=== PATIENT | female | born 1965 | race Caucasian/White ===

== ENCOUNTER → 2016-10-11 | Outpatient (CLI) | payer OTHER ==
[~2016-10-11] MED LIST: REGADENOSON 0.4 MG/5 ML SYRINGE IV ONE
--- NOTE | 2016-10-11 09:12 | US ---
EXAMINATION TYPE: US thyroid st tissue head/neck DATE OF EXAM: 10/11/2016 8:24 AM COMPARISON: NONE CLINICAL HISTORY: E03.9 hypothyroidism. Choking sensation, been on meds for hypothyroidism for years GLAND SIZE: Right Lobe: 4.4 x 1.6 x 2.3 cm Overall Parenchyma: heterogeneous Left Lobe: 3.3 x 1.5 x 2.4 cm Overall Parenchyma: heterogeneous Isthmus Thickness: 0.3 cm NODULES RIGHT: # of nodules measured on right: 0 LEFT: # of nodules measured on left: 1 1. 0.7 X 0.8cm calcified solid nodule at the upper pole with poorly defined margins. This nodule is wider than tall and shows no intranodular vascularity. Prior size: [employer] ISTHMUS: # of nodules measured in the isthmus: 0 Bilateral neck scanned, left sided lymph node at 1.7cm with vascularity and fatty hilum seen. IMPRESSION: 1. Subcentimeter nodule within the left lobe thyroid 2. Left side lymph node.
--- NOTE | 2016-10-11 11:18 | EST ---
DATE OF SERVICE: 10/11/2016 AGE: 51Y SEX: F HT: 5'5" WT: 283 lbs. Lexiscan Cardiolite Stress Test *Heart Rate Blood Pressure *Rest: 70 Rest: 94/44 * *Max. Achieved: 95 Maximum BP: 213/100 85% PMHR: 142 100% PMHR: 167 *METS: - INDICATIONS: Physical, shortness of breath. MEDICATIONS: - CLINICAL INFORMATION: Patient known to have hypertension, shortness of breath, family history of coronary artery disease, history of asthma. Resting ECG shows sinus rhythm, rate of 70 beats per minute, WI interval of 0.16, QRS of 0.08, normal ST-T waves. Utilizing a standard Lexiscan protocol, Lexiscan was given IV push followed by serial EKGs without any chest pain or pressure or ST segment deviations indicative of ischemia on the monitoring 12 leads. IMPRESSION: 1. Baseline rhythm is sinus with normal WI intervals, QRS, normal ST-T waves. 2. Negative Lexiscan Cardiolite study. 3. Nuclear scintigrams to follow from Radiology Department.
--- NOTE | 2016-10-11 14:10 | NM ---
EXAMINATION TYPE: NM stress lexiscan cardiolite DATE OF EXAM: 10/11/2016 10:54 AM COMPARISON: NONE HISTORY: Dyspnea on exertion and hypertension TECHNIQUE: After the intravenous administration of 11 mCi Tc 99m Sestamibi - Cardiolite resting SPEC T images acquired 45 minutes post injection. The patient received 0.4mg Lexiscan, 27.5 mCi Tc 99m Sestamibi - Stress images obtained [address] injection FINDINGS: Review of stress and rest SPECT images demonstrates decreased radio pharmaceutical uptake along the a nterolateral left ventricular myocardium at stress and rest images. Gated analysis shows normal wall motion with an estimated left ventricular ejection fraction of 50 %. 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
== END | disposition home or self-care (01) ==
LOC: RADUSMAIN 07:57
PROVIDERS: ATTEND Family Medicine
DX: E04.1 Nontoxic single thyroid nodule (principal)
CPT/HCPCS: 93017; 76536; 78452; A9500; J2785

== ENCOUNTER → 2016-10-24 | Outpatient (CLI) | payer OTHER ==
[2016-10-24 16:30] LABS: Basophils % (A) 1 %; CH 29.2; CHCM 33.3; Eosinophils # (A) 0.2 k/uL (0-0.7); Eosinophils % (A) 4 %; HCT 37.1 % (34.0-46.0); HGB 12.4 gm/dL (11.4-16.0); Luc # (Auto) 0.18; Luc % (Auto) 4; Lymphocytes # (A) 1.3 k/uL (1.0-4.8); Lymphocytes % (A) 26 %; MCH 29.3 pg (25.0-35.0); MCHC 33.4 g/dL (31.0-37.0); MCV 87.9 fL (80.0-100.0); Mean Platelet Volume 7.2; Monocytes # (A) 0.3 k/uL (0-1.0); Monocytes % (A) 6 %; Neutrophils % (A) 59 %; RBC 4.23 m/uL (3.80-5.40); RDW 13.8 % (11.5-15.5); WBC (Perox) 5.09
[2016-10-24 16:57] LABS: Anion Gap 10 mmol/L; Blood Urea Nitrogen 11 mg/dL (7-17); Carbon Dioxide 29 mmol/L (22-30); Chloride 102 mmol/L (98-107); Non-African American GFR(MDRD) >60 (>60 ml/min/1.73 sqM); Potassium 4.4 mmol/L (3.5-5.1); Sodium 141 mmol/L (137-145)
== END ==
LOC: LABPAT 16:00
PROVIDERS: ATTEND Internal Medicine Interventional Cardiology
DX: Z01.812 Encounter for preprocedural laboratory examination (principal); I10 Essential (primary) hypertension; I20.8 Other forms of angina pectoris; R94.39 Abnormal result of other cardiovascular function study
CPT/HCPCS: 80051; 82565; 84520; 85025

== ENCOUNTER 2016-10-30 06:01 | Day surgery (SDC) | payer OTHER ==
[2016-10-26 11:48] VITALS: BMI 50.1
[~2016-10-30 06:01] MED LIST changes: +ALPRAZolam 0.25 MG TAB PO PRN; +ASPIRIN 325 MG TAB PO ONE; -REGADENOSON 0.4 MG/5 ML SYRINGE IV ONE; +SODIUM CHLORIDE 0.9% 1,000 ML in EMPTY BAG 1 BAG IV ONE
[2016-10-30] MEDS ORDERED: SODIUM CHLORIDE 0.9% 1,000 ML IV ONE (07:05)
[2016-10-30 07:10] VITALS: RESP 16; TEMP 98.4
[2016-10-30] MEDS ORDERED: VERAPAMIL 2.5 MG/ML 2 ML AMP ONE (07:17)
[2016-10-30] MEDS ORDERED: diphenhydrAMINE 50 MG/ML 1 ML VIAL ONE (07:17)
[2016-10-30] MEDS ORDERED: fentaNYL (PF) 50 MCG/ML 2 ML AMP ONE (07:17)
[2016-10-30] MEDS ORDERED: LIDOCAINE 2% INJ 20 MG/ML (20 ML MDV) ONE (07:17)
[2016-10-30] MEDS ORDERED: MIDAZOLAM 2 MG/2 ML VIAL ONE (07:54)
[2016-10-30] MEDS ORDERED: diphenhydrAMINE 50 MG/ML 1 ML VIAL IVP ONE (07:55)
[2016-10-30] MEDS: MIDAZOLAM 2 MG/2 ML VIAL IV ONE ×2 (07:55→08:14)
[2016-10-30] MEDS ORDERED: HEPARIN SODIUM 1,000 UNIT/ML VIAL ONE (08:02)
[2016-10-30] MEDS ORDERED: LIDOCAINE 2% INJ 20 MG/ML SQ ONE (08:04)
[2016-10-30] MEDS ORDERED: VERAPAMIL SYRINGE (5 MG/10 ML) INTRAARTER ONE (08:06)
[2016-10-30] MEDS ORDERED: IOHEXOL 350 MG/ML 100 ML BOTTLE INJ ONE (08:34)
[2016-10-30] MEDS ORDERED: SODIUM CHLORIDE 0.9% 1,000 ML IV SCH (08:45)
[2016-10-30] MEDS ORDERED: RX INFO: IV CONTRAST WAS GIVEN 1 EACH MISC MISCELLANE PRN (08:45)
--- NOTE | 2016-10-30 09:42 | CC ---
DATE OF SERVICE: 10/30/2016 PROCEDURE: Left heart catheterization, coronary angiography and left ventriculography. Performed by Dr. Liane Macias. CLINICAL INFORMATION: Mrs. Kati Brunner is a 51-year-old lady with history of obesity, hypertension, hypercholesterolemia, anxiety with a positive stress test was advised coronary angiography for definitive diagnosis. She has been treated with beta blockers and statins and aspirin. Risks, benefits, options, and rationale were explained. PROCEDURE NOTE: Under local anesthesia and aseptic precautions, a 6 [place] introducer was placed was placed in the right radial artery. I used a micropuncture technique to gain access. I used an ultimate one catheter for selective coronary angiography of the right coronary artery and a JR3.5 catheter for right coronary artery and Ultimate One catheter for the left coronary artery. Pigtail catheter was used to perform LV gram after checking pressures. The sheath was taken out and TR band applied as per protocol. The saturation of the fingers of the right hand was 95%. Patient tolerated the procedure well without complications. CARDIAC CATHETERIZATION FINDINGS: The left ventricular end-diastolic pressure was 16 to 18 mmHg with no gradient across the aortic valve. RIGHT CORONARY ARTERY: Technically a dominant vessel, has minor irregularities, gives off a large PDA and hardly a PLV. No significant diffuse minor irregularities, dominant RCA with a good-sized PDA is free of significant disease. LEFT MAIN CORONARY ARTERY: Short, patent, disease-free vessel that bifurcates into LAD and circumflex. LEFT ANTERIOR DESCENDING CORONARY ARTERY: Relatively small caliber, small distribution vessel gives off a septal and diagonal branch and runs along the anterior wall. After the origin of the diagonal branch the caliber of the vessel decreases and becomes smaller, runs all the way to the apex and towards the distal one-fourth, is a very small caliber vessel. Gives off septal and diagonal branches. LAD in the distal half is a small caliber, small distribution vessel, but does reach the apex. LEFT POSTERIOR CIRCUMFLEX CORONARY ARTERY: This is a codominant vessel; gives off a large obtuse marginal that divides into 2 branches, supplies a fair amount of myocardium. Circumflex in the AV groove is of good caliber. In the AV groove it continues and seems to have a conduit that seems to empty either in the right atrium or in the superior vena cava and the distal groove branch of the circumflex continues in the sinus venosus area and then extends superiorly towards either SVC or right atrium, but I cannot see the emptying of this vessel. However, circumflex is a large catheter, probably a codominant vessel without significant disease, has minor irregularities and a branch of the circumflex that goes into the AV groove, continues on-words and seems to empty probably in the SVC or the right atrial area. However, there seems to be almost an arteriovenous site fistula, but does not seem to have a clear conduit to determine as to where is actually emptying. This seems to be an anomaly which is inconsequential. LEFT VENTRICULOGRAM: This was performed in 30 degree CARTER projection and revealed left ventricle of normal size with good systolic function without segmental wall motion abnormality. Ejection fraction is 60% to 65% without mitral regurgitation. Moderate Conscious Sedation adminstered for 45 minutes, monitered closely with decent Oxygen Saturation. 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 The LV systolic function is normal and filling pressures are slightly elevated. RECOMMENDATIONS: Findings were discussed with the patient and family. We will continue medical therapy with risk factor modification. The patient will be discharged later on today if she remains stable. MITA
--- NOTE | 2016-10-30 09:44 | LTR ---
October 30, 2016 RE: Kati Brunner Taryn Dear Dr. Soto; Thank you for the opportunity to participate in the care of Mrs. Kati Brunner. I am pleased to report to you that she does not have any significant obstructive coronary artery disease. 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 Thank you for your referral. Please call for questions. With kindest regards. Sincerely, LI WILKS MD
[2016-10-30 13:14] VITALS: PULSE 65
[2016-10-30 17:11] VITALS: BP 128/68
== END 2016-10-30 16:45 | disposition home or self-care (01) ==
LOC: CATHCVL 06:01
PROVIDERS: ATTEND Internal Medicine Interventional Cardiology
DX: R94.39 Abnormal result of other cardiovascular function study (principal); I20.8 Other forms of angina pectoris; R06.02 Shortness of breath; R07.89 Other chest pain; R00.2 Palpitations; E66.9 Obesity, unspecified; Z68.43 Body mass index [BMI] 50.0-59.9, adult; I10 Essential (primary) hypertension; E78.00 Pure hypercholesterolemia, unspecified; F41.9 Anxiety disorder, unspecified; E03.9 Hypothyroidism, unspecified; Z82.49 Family history of ischemic heart disease and other diseases of the circulatory system; Z79.82 Long term (current) use of aspirin; Z79.899 Other long term (current) drug therapy; Z88.0 Allergy status to penicillin
CPT/HCPCS: 93458; 99152; C1769; C1894; J2001; J2250; J1200; Q9967; J1644

== ENCOUNTER 2016-11-16 10:00 | Day surgery (SDC) | payer OTHER ==
[2016-11-13 14:51] VITALS: BMI 50.1
[~2016-11-16 10:00] MED LIST changes: -ALPRAZolam 0.25 MG TAB PO PRN; -ASPIRIN 325 MG TAB PO ONE; +LACTATED RINGERS 1,000 ML IV SCH; -SODIUM CHLORIDE 0.9% 1,000 ML in EMPTY BAG 1 BAG IV ONE
[2016-11-16 10:23] VITALS: RESP 16; TEMP 98.4
[2016-11-16] MEDS ORDERED: LIDOCAINE 1% 20 ML VIAL (10MG/ML) FOR IV START INTRADERMA ONE (10:27)
[2016-11-16] MEDS ORDERED: LIDOCAINE 1% INJ 10MG/ML (20 ML MDV) ONE (10:31)
[2016-11-16] MEDS ORDERED: PROPOFOL 10 MG/ML 20 ML VIAL IV ONE (10:31)
--- NOTE | 2016-11-16 10:34 | P.GSHP ---
History of Present Illness H&P Date: 11/16/16 Chief Complaint: Colon cancer screening Patient here today for colonoscopy. She at her last colonoscopy 10 years ago. That was normal. She has a family history of colon polyps in her father. No bowel related complaints. Past Medical History Past Medical History: GERD/Reflux, Hypertension, Thyroid Disorder Additional Past Medical History / Comment(s): insomnia History of Any Multi-Drug Resistant Organisms: None Reported Past Surgical History: Adenoidectomy, Heart Catheterization, Tonsillectomy, Tubal Ligation Additional Past Surgical History / Comment(s): CATARACT Past Anesthesia/Blood Transfusion Reactions: No Reported Reaction Past Psychological History: Anxiety, Depression Smoking Status: Never smoker Past Alcohol Use History: None Reported Past Drug Use History: None Reported - Past Family History Mother Family Medical History: Cancer Additional Family Medical History / Comment(s): breast CA Father Family Medical History: No Reported History Medications and Allergies Home Medications Medication Instructions Recorded Confirmed Type Albuterol Sulfate [Proventil Hfa] 2 puff INHALATION Q4H PRN 05/04/16 11/16/16 History Escitalopram Oxalate [Lexapro] 20 mg PO QAM 05/04/16 11/16/16 History Ferrous Sulfate [Feosol] 325 mg PO DAILY 05/04/16 11/16/16 History Levothyroxine Sodium [Synthroid] 112 mcg PO QAM 05/04/16 11/16/16 History Metoprolol Succinate [Toprol XL] 50 mg PO BID 05/04/16 11/16/16 History Omeprazole [PriLOSEC] 20 mg PO AC-BRKFST 05/04/16 11/16/16 History Aspirin [Adult Low Dose Aspirin EC] 81 mg PO DAILY 10/26/16 11/16/16 History Atorvastatin [Lipitor] 20 mg PO DAILY 10/26/16 11/16/16 History Fluticasone Nasal [place] [Flonase 1 spray EA NOSTRIL DAILY 10/26/16 11/16/16 History Nasal [place]] Hydrochlorothiazide 50 mg PO DAILY PRN 10/26/16 11/16/16 History LORazepam [Ativan] 2 mg PO DAILY PRN 10/26/16 11/16/16 History Loratadine [Claritin] 10 mg PO DAILY 10/26/16 11/16/16 History Zolpidem [Ambien] 10 mg PO HS 10/26/16 11/16/16 History Allergies Allergy/AdvReac Type Severity Reaction Status Date / Time Penicillins Allergy Rash/Hives Verified 11/16/16 10:13 Surgical - Exam Vital Signs Temp Pulse Resp BP Pulse Ox 98.4 F 72 16 138/85 94 L 11/16/16 10:22 11/16/16 10:22 11/16/16 10:22 11/16/16 10:22 11/16/16 10:22 Physical exam: General: Well-developed, well-nourished HEENT: Normocephalic, sclerae nonicteric Abdomen: Nontender, nondistended Extremities: No edema Neuro: Alert and oriented Assessment and Plan (1) Colon cancer screening Narrative/Plan: Will proceed with colonoscopy at this time. Risks of bleeding and perforation discussed. Status: Acute
--- NOTE | 2016-11-16 10:50 | P.PCN ---
Date of Procedure: 11/16/16 Preoperative Diagnosis: Postoperative Diagnosis: Procedure(s) Performed: PREOPERATIVE DIAGNOSIS: Colon cancer screening, family history of colon polyps POSTOPERATIVE DIAGNOSIS: Normal exam PROCEDURE: Colonoscopy ANESTHESIA: MAC SURGEON: Delvin De León M.D. SPECIMENS: None ENDOSCOPIC PROCEDURE: The patient was placed on the endoscopy table in the left decubitus position. The Olympus colonoscope was inserted into the anus and passed under direct visualization to the base of the cecum. The appendiceal orifice was visualized. From that point the scope was slowly withdrawn inspecting all surfaces carefully. There were no neoplastic inflammatory or polypoid lesions throughout the cecum, ascending, transverse, descending, sigmoid and rectum. There was no diverticulosis noted. Digital rectal examination was normal. The patient was taken to the recovery room in stable condition per anesthesia guidelines. RECOMMENDATIONS: Increase fiber. Consider follow-up colonoscopy in 5 years because of the patient's family history. Implants: Indications for Procedure: Operative Findings: Description of Procedure:
[2016-11-16 11:06] VITALS: BP 119/79; PULSE 63
== END 2016-11-16 12:04 | disposition home or self-care (01) ==
LOC: ORWHC2ENDO 10:00
PROVIDERS: ATTEND Surgery
DX: Z12.11 Encounter for screening for malignant neoplasm of colon (principal); Z83.71 Family history of colonic polyps; K21.9 Gastro-esophageal reflux disease without esophagitis; I10 Essential (primary) hypertension; E78.5 Hyperlipidemia, unspecified; J45.909 Unspecified asthma, uncomplicated; F41.9 Anxiety disorder, unspecified; F32.9 Major depressive disorder, single episode, unspecified; Z79.82 Long term (current) use of aspirin; Z79.51 Long term (current) use of inhaled steroids; Z88.0 Allergy status to penicillin; Z79.899 Other long term (current) drug therapy
CPT/HCPCS: J2001; J2704; G0105

== ENCOUNTER → 2017-07-17 | Outpatient (CLI) | payer OTHER ==
--- NOTE | 2017-07-18 22:11 | BD ---
EXAMINATION TYPE: MG DEXA axial skeleton. DATE OF EXAM: 07/17/2017 COMPARISON: NONE CLINICAL HISTORY: Height: 62.5 IN Weight: 292 LBS FRAX RISK QUESTIONS: Alcohol (3 or more units per day): NO Family History (Parent hip fracture): NO Glucocorticoids (More than 3mos): NO (Ex: prednisone, prednisolone, methylprednisolone, dexamethasone, and hydrocortisone). History of Fracture in Adulthood: NO Secondary Osteoporosis: 1. Type 1 Diabetes: NO 2. Hyperthyroidism: NO 3. Menopause before 45: NO 4. Malnutrition: NO 5. Chronic liver disease: NO Rheumatoid Arthritis: NO Current Tobacco Use: NO RISK FACTORS HISTORY OF: Active: YES Diet low in dairy products/other sources of calcium: YES Postmenopausal woman: AGE 48 MEDICATIONS: Thyroid Medications: Which medication: Levothyroxine How Lon YEARS Additional Medications: LEVOTHYROXINE, HIGH BLOOD PRESSURE MEDS, LEXAPRO, AMBIEN, PRILOSEC, SINGULAIR , 81 MG ASPIRIN, IRON PILL, INHALERS FOR ASTHMA, LASIX, POTASIUM, CHOLESTEROL MEDS EXAM MEASUREMENTS: Bone mineral densitometry was performed using the [employer] System. Bone mineral density as measured about the Lumbar spine is: ----- L1-L4(G/cm2): 0.986 T Score Values are as follows: ----- L2: -1.8 ----- L3: -2.2 ----- L4: -1.5 ----- L1-L4: -1.6 Bone mineral density BASELINE Bone mineral density about the R hip (g/cm2): 0.864 Bone mineral density about the L hip (g/cm2): 0.913 T Score values are as follows: -----R Neck: -1.3 -----L Neck: -0.9 -----R Total: 0.3 -----L Total: 0.5 Bone mineral density BASELINE IMPRESSION: Osteopenia (T Score between -2.5 and -1 as noted by T score values There is slightly increased risk of fracture and the patient may be considered for treatment. Re-Screen 2-5 years. NOTE: T-SCORE=SD OF THE YOUNG ADULT MEAN.
== END | disposition home or self-care (01) ==
LOC: RADBDWWP 12:38
PROVIDERS: ATTEND Obstetrics & Gynecology
DX: M85.80 Other specified disorders of bone density and structure, unspecified site (principal)
CPT/HCPCS: 77080

== ENCOUNTER → 2017-07-18 | Outpatient (CLI) | payer OTHER ==
--- NOTE | 2017-07-19 00:18 | XR ---
EXAMINATION TYPE: XR chest 2V DATE OF EXAM: 07/18/2017 COMPARISON: 05/20/2017 HISTORY: Wheezing and chronic cough TECHNIQUE: Frontal and lateral views of the chest are obtained. FINDINGS: There is no heart failure nor confluent pneumonic infiltrate. Costophrenic angles are solomon r. Thoracic aorta is atheromatous. Bony thorax is intact. Heart is probably enlarged. IMPRESSION: There is probably cardiomegaly. No change compared to old exam. No heart failure.
== END | disposition home or self-care (01) ==
LOC: RADXRMAIN 14:07
PROVIDERS: ATTEND Family Medicine
DX: J45.901 Unspecified asthma with (acute) exacerbation (principal)
CPT/HCPCS: 71046

== ENCOUNTER 2017-08-19 08:26 | Inpatient (IN) | payer OTHER ==
[2017-08-19] MEDS ORDERED: IPRATROPIUM-ALBUTEROL 3 ML NEB INHALATION STA (08:55)
[2017-08-19] MEDS ORDERED: HYDROcodone/APAP 5-325MG 1 EACH TAB PO STA (08:55)
[2017-08-19] MEDS ORDERED: ACETAMINOPHEN TAB 325 MG TAB PO STA (08:56)
[2017-08-19 09:20] LABS: HGB 12.5 gm/dL (11.4-16.0); MCH 29.4 pg (25.0-35.0); MCHC 32.9 g/dL (31.0-37.0); MCV 89.2 fL (80.0-100.0); Mean Platelet Volume 6.7; Platelet Count 157 k/uL (150-450); RBC 4.26 m/uL (3.80-5.40); RDW 14.3 % (11.5-15.5); WBC 3.1 k/uL (3.8-10.6)
--- NOTE | 2017-08-19 09:31 | XR ---
EXAMINATION TYPE: XR chest 2V DATE OF EXAM: 08/19/2017 COMPARISON: 07/29/2017 HISTORY: Chest pain TECHNIQUE: Frontal and lateral views of the chest are obtained. FINDINGS: There is no focal air space opacity, pleural effusion, or pneumothorax seen. The cardiac silhouette size is enlarged. The osseous structures are intact. IMPRESSION: No acute cardiopulmonary process. Redemonstration of cardiomegaly.
[2017-08-19 09:34] LABS: Prothrombin Time 9.9 sec (9.0-12.0)
--- NOTE | 2017-08-19 09:34 | XR ---
EXAMINATION TYPE: XR foot complete LT DATE OF EXAM: 08/19/2017 CLINICAL HISTORY: Left foot swelling since this morning. TECHNIQUE: Frontal, lateral, and oblique images of the left foot are obtained. COMPARISON: None FINDINGS: There is no acute fracture/dislocation evident in the left foot. The joint spaces in the left foot appear within normal limits. There is generalized mild soft tissue swelling of the left evangelina t most prominent over the proximal aspect of the fifth metatarsal laterally. Small plantar heel spur is noted. IMPRESSION: 1. No acute fracture or dislocation in the left foot. 2. Generalized mild soft tissue swelling of the left foot most pronounced over the lateral midfoot.
[2017-08-19 09:42] LABS: ALT 49 U/L (9-52); AST 24 U/L (14-36); Albumin 4.4 g/dL (3.5-5.0); Alkaline Phosphatase 98 U/L (38-126); Anion Gap 14 mmol/L; Blood Urea Nitrogen 8 mg/dL (7-17); C Reactive Protein 20.9 mg/L (<10.0); Calcium 9.1 mg/dL (8.4-10.2); Carbon Dioxide 27 mmol/L (22-30); Chloride 98 mmol/L (98-107); Glucose 158 mg/dL (74-99); Potassium 4.1 mmol/L (3.5-5.1); Sodium 139 mmol/L (137-145); Total Bilirubin 0.7 mg/dL (0.2-1.3); Total Protein 7.7 g/dL (6.3-8.2); Uric Acid 4.6 mg/dL (3.7-7.4)
--- NOTE | 2017-08-19 09:43 | ED ---
General Adult HPI - General Chief complaint: Extremity Injury, Lower Stated complaint: PAIN IN LEFT FOOT, FINGERS ON LEFT HAND Time Seen by Provider: 08/19/17 08:46 Source: patient, RN notes reviewed Mode of arrival: wheelchair Limitations: no limitations - History of Present Illness Initial comments: This a 52-year-old female presents emergency Department with multiple complaints. Patient complains of left leg, foot pain. She states it started overnight , increased redness, swelling. She is concerned that she may have possible blood clot. She does admit to recent epidural injection for chronic pain. Patient states that she's had no prior infections of her legs denies any history of diabetes or gout. Patient denies any current chest pain or shortness breath though she does admit to cough, chest congestion and some shortness of breath. She states that she has asthma has been seen Dr. Hollingsworth over the last few months for this and states that she's had multiple rounds of antibiotics, steroids and inhalers with no improvement. She did not notice that she had a fever. Patient denies any headache, dizziness, sore throat, ear pain. She does admit to some increased nasal congestion. Patient also complains of her left hand second and third digit locking up. She states that it gets stuck sometimes and then other times she has no issues. Denies any trauma denies any rashes. - Related Data Home Medications Medication Instructions Recorded Confirmed Escitalopram Oxalate [Lexapro] 20 mg PO QAM 05/04/16 08/19/17 Ferrous Sulfate [Feosol] 325 mg PO DAILY 05/04/16 08/19/17 Metoprolol Succinate [Toprol XL] 50 mg PO BID 05/04/16 08/19/17 Omeprazole [PriLOSEC] 20 mg PO AC-BID 05/04/16 08/19/17 Aspirin [Adult Low Dose Aspirin EC] 81 mg PO DAILY 10/26/16 08/19/17 Atorvastatin [Lipitor] 20 mg PO DAILY 10/26/16 08/19/17 Fluticasone Nasal [place] [Flonase 1 spray EA NOSTRIL DAILY 10/26/16 08/19/17 Nasal [place]] Loratadine [Claritin] 10 mg PO DAILY 10/26/16 08/19/17 Zolpidem [Ambien] 10 mg PO HS 10/26/16 08/19/17 Albuterol Inhaler [Ventolin Hfa 1 - 2 puff INHALATION RT-Q6H PRN 08/19/17 Inhaler] Budesonide/Formoterol Fumarate 2 puff INHALATION RT-BID 08/19/17 08/19/17 [Symbicort 160-4.5 Mcg Inhaler] Furosemide [Lasix] 20 mg PO BID 08/19/17 08/19/17 Gabapentin [Neurontin] 300 mg PO TID 08/19/17 08/19/17 Levothyroxine Sodium [Synthroid] 125 mcg PO DAILY 08/19/17 08/19/17 Nystatin 100,000 Unit/gm Powd 1 applic TOPICAL BID PRN 08/19/17 08/19/17 [Mycostatin Powder] Potassium Chloride [Klor-Con 20] 20 meq PO BID 08/19/17 08/19/17 Previous Rx's Medication Instructions Recorded Ibuprofen [Motrin] 600 mg PO Q8HR PRN #30 tab 05/04/16 Allergies Allergy/AdvReac Type Severity Reaction Status Date / Time Penicillins Allergy Rash/Hives Verified 08/19/17 08:47 Review of Systems ROS Statement: Those systems with pertinent positive or pertinent negative responses have been documented in the HPI. ROS Other: All systems not noted in ROS Statement are negative. Past Medical History Past Medical History: GERD/Reflux, Hypertension, Thyroid Disorder Additional Past Medical History / Comment(s): insomnia History of Any Multi-Drug Resistant Organisms: None Reported Past Surgical History: Adenoidectomy, Tonsillectomy, Tubal Ligation Additional Past Surgical History / Comment(s): carpel tunnel right wrist Past Anesthesia/Blood Transfusion Reactions: No Reported Reaction Past Psychological History: Anxiety, Depression Smoking Status: Never smoker Past Alcohol Use History: None Reported Past Drug Use History: None Reported - Past Family History Mother Family Medical History: Cancer Father Family Medical History: No Reported History General Exam Limitations: no limitations General appearance: alert, in no apparent distress Head exam: Present: atraumatic, normocephalic, normal inspection Eye exam: Present: normal appearance, PERRL, EOMI. Absent: scleral icterus, conjunctival injection, periorbital swelling ENT exam: Present: normal exam, normal oropharynx, mucous membranes moist, TM's normal bilaterally, normal external ear exam Neck exam: Present: normal inspection, full ROM. Absent: tenderness, meningismus, lymphadenopathy Respiratory exam: Present: wheezes. Absent: normal lung sounds bilaterally, respiratory distress, rales, rhonchi, stridor Cardiovascular Exam: Present: regular rate, normal rhythm, normal heart sounds. Absent: systolic murmur, diastolic murmur, rubs, gallop, clicks GI/Abdominal exam: Present: soft, normal bowel sounds. Absent: distended, tenderness, guarding, rebound, rigid Extremities exam: Present: other (Left foot there is diffuse erythema, warmth with palpation, pedal pulses equal bilaterally there is some erythema noted to the mid calf region though there is no calf tenderness there is mild swelling noted to the left leg. Left hand there is full range of motion of all digits neurovascular intact no rashes) Skin exam: Present: warm, dry, intact, normal color. Absent: rash Course Vital Signs 08/19/17 08/19/17 08/19/17 08:27 09:57 10:16 Temperature 100.6 F H Pulse Rate 93 104 H 100 Respiratory 18 Rate Blood Pressure 122/77 O2 Sat by Pulse 93 L Oximetry Medical Decision Making - Lab Data Result diagrams: 08/19/17 09:00 08/19/17 09:00 Lab Results 08/19/17 08/19/17 08/19/17 Range/Units 09:00 09:00 09:00 WBC (3.8-10.6) k/uL RBC (3.80-5.40) m/uL Hgb (11.4-16.0) gm/dL Hct (34.0-46.0) % MCV (80.0-100.0) fL MCH (25.0-35.0) pg MCHC (31.0-37.0) g/dL RDW (11.5-15.5) % Plt Count (150-450) k/uL Neutrophils % Neutrophils % (Manual) % Band Neutrophils % % Lymphocytes % Lymphocytes % (Manual) % Monocytes % Monocytes % (Manual) % Eosinophils % Basophils % Neutrophils # Neutrophils # (Manual) (1.3-7.7) k/uL Lymphocytes # Lymphocytes # (Manual) (1.0-4.8) k/uL Monocytes # Monocytes # (Manual) (0-1.0) k/uL Eosinophils # Basophils # Nucleated RBCs (0-0) /100 WBC Anisocytosis (manual) ESR PT (9.0-12.0) sec INR (<1.2) APTT (22.0-30.0) sec Sodium 139 (137-145) mmol/L Potassium 4.1 (3.5-5.1) mmol/L Chloride 98 (98-107) mmol/L Carbon Dioxide 27 (22-30) mmol/L Anion Gap 14 mmol/L BUN 8 (7-17) mg/dL Creatinine 0.80 (0.52-1.04) mg/dL Est GFR (MDRD) Af Amer >60 (>60 ml/min/1.73 sqM) Est GFR (MDRD) Non-Af >60 (>60 ml/min/1.73 sqM) Glucose 158 H (74-99) mg/dL Plasma Lactic Acid Bereket 1.6 (0.7-2.0) mmol/L Uric Acid 4.6 (3.7-7.4) mg/dL Calcium 9.1 (8.4-10.2) mg/dL Total Bilirubin 0.7 (0.2-1.3) mg/dL AST 24 (14-36) U/L ALT 49 (9-52) U/L Alkaline Phosphatase 98 (38-126) U/L C-Reactive Protein 20.9 H (<10.0) mg/L Total Protein 7.7 (6.3-8.2) g/dL Albumin 4.4 (3.5-5.0) g/dL Influenza Type A RNA Not Detected (Not Detectd) Influenza Type B (PCR) Detected H (Not Detectd) 08/19/17 08/19/17 Range/Units 09:00 09:00 WBC 3.1 L (3.8-10.6) k/uL RBC 4.26 (3.80-5.40) m/uL Hgb 12.5 (11.4-16.0) gm/dL Hct 38.0 (34.0-46.0) % MCV 89.2 (80.0-100.0) fL MCH 29.4 (25.0-35.0) pg MCHC 32.9 (31.0-37.0) g/dL RDW 14.3 (11.5-15.5) % Plt Count 157 (150-450) k/uL Neutrophils % Not Reportable Neutrophils % (Manual) 59 % Band Neutrophils % 1 % Lymphocytes % Not Reportable Lymphocytes % (Manual) 32 % Monocytes % Not Reportable Monocytes % (Manual) 8 % Eosinophils % Not Reportable Basophils % Not Reportable Neutrophils # Not Reportable Neutrophils # (Manual) 1.80 (1.3-7.7) k/uL Lymphocytes # Not Reportable Lymphocytes # (Manual) 0.99 L (1.0-4.8) k/uL Monocytes # Not Reportable Monocytes # (Manual) 0.25 (0-1.0) k/uL Eosinophils # Not Reportable Basophils # Not Reportable Nucleated RBCs 0 (0-0) /100 WBC Anisocytosis (manual) Present ESR Cancelled PT 9.9 (9.0-12.0) sec INR 1.0 (<1.2) APTT 20.5 L (22.0-30.0) sec Sodium (137-145) mmol/L Potassium (3.5-5.1) mmol/L Chloride (98-107) mmol/L Carbon Dioxide (22-30) mmol/L Anion Gap mmol/L BUN (7-17) mg/dL Creatinine (0.52-1.04) mg/dL Est GFR (MDRD) Af Amer (>60 ml/min/1.73 sqM) Est GFR (MDRD) Non-Af (>60 ml/min/1.73 sqM) Glucose (74-99) mg/dL Plasma Lactic Acid Bereket (0.7-2.0) mmol/L Uric Acid (3.7-7.4) mg/dL Calcium (8.4-10.2) mg/dL Total Bilirubin (0.2-1.3) mg/dL AST (14-36) U/L ALT (9-52) U/L Alkaline Phosphatase (38-126) U/L C-Reactive Protein (<10.0) mg/L Total Protein (6.3-8.2) g/dL Albumin (3.5-5.0) g/dL Influenza Type A RNA (Not Detectd) Influenza Type B (PCR) (Not Detectd) Disposition Clinical Impression: Left leg cellulitis, Asthma exacerbation, Influenza B Disposition: ADMITTED IP TO THIS HOSP Condition: Stable Referrals: Nikki Soto MD [Primary Care Provider] - 1-2 days
[2017-08-19 09:48] LABS: Partial Thromboplastin Time 20.5 sec (22.0-30.0)
[2017-08-19 10:03] LABS: Anisocytosis (M) Present; Band Neutrophils % 1 %; Lymphocytes # (M) 0.99 k/uL (1.0-4.8); Monocytes # (M) 0.25 k/uL (0-1.0); Neutrophils % (M) 59 %; Nucleated Red Blood Cells 0 /100 WBC (0-0); Total Cells Counted 100
--- NOTE | 2017-08-19 10:08 | US ---
EXAMINATION TYPE: US venous doppler duplex LE LT DATE OF EXAM: 08/19/2017 9:55 AM COMPARISON: NONE CLINICAL HISTORY: Pain. Pain. Redness. On aspirin. No hx of blood clots. SIDE PERFORMED: Left TECHNIQUE: The lower extremity deep venous system is examined utilizing real time linear array sonog gabby with graded compression, doppler sonography and color-flow sonography. VESSELS IMAGED: External Iliac Vein (EIV) Common Femoral Vein Deep Femoral Vein Greater Saphenous Vein * Femoral Vein Popliteal Vein Small Saphenous Vein * Proximal Calf Veins (* superficial vessels) Suboptimal visualization due to patient body habitus Left Leg: Appears negative for acute DVT Grayscale, color doppler, spectral doppler imaging performed of the deep veins of the lower extremiti es. There is normal flow, compressibility, vascular waveforms. IMPRESSION: No sonographic evidence of deep venous thrombosis within the left lower extremity.
[2017-08-19] MEDS ORDERED: VANCOMYCIN IV PER PHARMACY 1 EACH MISC MISCELLANE PRN (11:45)
[2017-08-19] MEDS ORDERED: OSELTAMIVIR 75 MG CAP PO STA (11:45)
[2017-08-19] MEDS ORDERED: MORPHINE SULFATE 4 MG/ML SYRINGE IV PRN (11:46)
[2017-08-19] MEDS ORDERED: ONDANSETRON 4 MG/2 ML VIAL IVP PRN (11:46)
[2017-08-19] MEDS ORDERED: NALOXONE 0.4 MG/ML 1 ML VIAL IV PRN (11:46)
[2017-08-19] MEDS ORDERED: HYDROcodone/APAP 5-325MG 1 EACH TAB PO PRN (11:46)
[2017-08-19] MEDS ORDERED: methylPREDNISolone SOD SUCCI 125 MG/2 ML VIAL IV STA (11:48)
[2017-08-19] MEDS ORDERED: VANCOMYCIN 2,000 MG in SODIUM CHLORIDE 0.9% 500 ML IVPB STA (11:49)
[2017-08-19] MEDS: IPRATROPIUM-ALBUTEROL 3 ML NEB INHALATION SCH ×3 (12:41→19:33)
[2017-08-19] MEDS ORDERED: MORPHINE ORAL SOLN 10 MG/5 ML CUP PO PRN ×2 (13:24)
[2017-08-19] MEDS ORDERED: KETOROLAC 30 MG/ML 1 ML VIAL IVP STA (15:26)
[2017-08-19] MEDS: PANTOPRAZOLE 40 MG TABLET PO SCH (17:32)
[2017-08-19 20:31] LABS: Glucose,Whole Blood 426 mg/dL (75-99)
[2017-08-19 20:38] VITALS: BMI 54.8
[2017-08-19] MEDS ORDERED: ALPRAZolam 0.25 MG TAB PO PRN (20:52)
[2017-08-19] MEDS ORDERED: TEMAZEPAM 15 MG CAP PO PRN (20:52)
[2017-08-19] MEDS ORDERED: NYSTATIN 100,000 UNIT/GM POWD 15 GM TOPICAL PRN (20:53)
[2017-08-19] MEDS ORDERED: predniSONE 20 MG TAB PO SCH (21:00)
[2017-08-19] MEDS ORDERED: INSULIN ASPART 100 UNIT/ML 1 ML 10 ML VIAL SQ SCH (21:00)
[2017-08-19] MEDS: AZITHROMYCIN 500 MG in SODIUM CHLORIDE 0.9% 250 ML IVPB SCH (22:21)
[2017-08-19] MEDS: cefTRIAXone IN SWFI 1,000 MG/10 ML SYRINGE IVP SCH (22:21)
[2017-08-19 22:22] LABS: Glucose,Whole Blood 404 mg/dL (75-99)
[2017-08-19] MEDS: FUROSEMIDE 20 MG TAB PO SCH (22:23)
[2017-08-19] MEDS: methylPREDNISolone SOD SUCCI 125 MG/2 ML VIAL IV SCH (22:24)
[2017-08-19] MEDS: HEPARIN SODIUM,PORCINE 5,000 UNIT/ML 1 ML VIAL SQ SCH (22:24)
[2017-08-19] MEDS: METOPROLOL SUCCINATE (ER) 50 MG TAB.ER.24H PO SCH (22:25)
[2017-08-19] MEDS: POTASSIUM CHLORIDE ER 20 MEQ TAB.ER PO SCH (22:27)
[2017-08-19] MEDS: GABAPENTIN 300 MG CAP PO SCH (22:27)
[2017-08-19] MEDS: INSULIN REGULAR 100 UNIT in SODIUM CHLORIDE 0.9% 100 ML IV SCH (22:39)
[2017-08-19] MEDS: OSELTAMIVIR 75 MG CAP PO SCH (22:43)
[2017-08-19] MEDS: ZOLPIDEM 10 MG TAB PO SCH (22:43)
--- NOTE | 2017-08-19 23:01 | HP ---
HISTORY AND PHYSICAL CHIEF COMPLAINTS: Shortness of breath and cough. HISTORY OF PRESENT ILLNESS: This 52-year-old woman with a past medical history of multiple medical problems, including bronchial asthma, GERD, hypertension, hyperlipidemia, history of DJD, history of cardiac catheterization, history of anxiety, depression, being followed by Dr. Soto in the outpatient setting, was complaining of shortness of breath and cough. The patient also noted left foot swelling and redness which was increasing overnight. The patient recently had an epidural injection for chronic pain. The patient also had frequent episodes of shortness of breath and cough and was going through multiple episodes of antibiotics and steroids, according to her. There is no history of any fever, rigor or chills. No history of headache, loss of consciousness, seizures. Currently the patient has positive influenza B. The patient is admitted for further evaluation and treatment. PAST MEDICAL HISTORY: 1. Asthma. 2. GERD. 3. Hypertension. 4. Hyperlipidemia. 5. Hypothyroidism. 6. Chronic back pain. 7. Anxiety. 8. Depression. HOME MEDICATIONS: 1. Ambien 10 mg at bedtime. 2. Klor-Con 20 mEq p.o. b.i.d. 3. Prilosec 20 mg b.i.d. 4. Mycostatin 1 application b.i.d. p.r.n. 5. Toprol XL 50 mg b.i.d. 6. Claritin 10 mg daily p.r.n. 7. Synthroid 125 mcg p.o. daily. 8. Motrin 600 mg q.8 p.r.n. 9. Neurontin 300 mg p.o. t.i.d. 10.Lasix 20 mg p.o. b.i.d. 11.Flonase 1 spray daily. 12.Iron sulfate 320 mg p.o. daily. 13.Lexapro 20 mg each morning. 14.Symbicort 160/4.5 two puffs b.i.d. 15.Lipitor 20 mg p.o. daily. 16.Aspirin 81 mg p.o. daily. 17.Ventolin HFA 1 to 2 puffs q.6 p.r.n. ALLERGIES: PENICILLIN. FAMILY HISTORY: History of breast cancer in the family. SOCIAL HISTORY: No history of smoking. No history of alcohol intake. REVIEW OF SYSTEMS: ENT: No diminished hearing. No diminished vision. CARDIOVASCULAR SYSTEM: As mentioned earlier. RESPIRATORY SYSTEM: As mentioned earlier. GI: No nausea, vomiting. : No dysuria or retention. NERVOUS SYSTEM: No numbness, weakness. ALLERGY/IMMUNOLOGY: As mentioned earlier. HEMATOLOGY/ONCOLOGY: No history of anemia. ENDOCRINE: Hypothyroidism. No history of diabetes mellitus. CONSTITUTIONAL: As mentioned earlier. DERMATOLOGY: Negative. RHEUMATOLOGY: Negative. PSYCHIATRY: As mentioned earlier. PHYSICAL EXAMINATION: Patient is alert and oriented x3. Pulse is 93, blood pressure 130/73, respiration 16, temperature 97.1, pulse ox 92% on room air. HEENT: Conjunctivae normal. Oral mucosa moist. NECK: No jugular venous distention. No carotid bruit. No lymph node enlargement. CARDIOVASCULAR SYSTEM: S1, S2 muffled. RESPIRATORY SYSTEM: Breath sounds diminished at the bases. A few scattered rhonchi and crackles. Expiratory wheezing also present. ABDOMEN: Soft, obese, nontender. No mass palpable. LEGS: No edema. No swelling. Otherwise, erythema of the left foot and some tenderness also present. NERVOUS SYSTEM: Higher functions as mentioned earlier. Moves all 4 limbs. No focal motor or sensory deficit. LYMPHATICS: No lymph node palpable in neck, axillae or groin. SKIN: No ulcer, rash, bleeding. LABS: Labs at this time show WBC 3.1. Otherwise, hemoglobin is 12.5. APTT noted. Glucose 158 and 426. Influenza B positive. ASSESSMENT: 1. Acute asthma exacerbation with acute purulent tracheobronchitis. 2. Acute influenza B. 3. Diabetes mellitus, possibly new onset, uncontrolled. 4. Acute cellulitis of the left foot. 5. Leukopenia. 6. Gastroesophageal reflux disease. 7. Asthma. 8. Hyperlipidemia. 9. Hypertension. 10.Hypothyroidism. 11.Chronic back pain and recent epidural injection. 12.History of cardiac catheterization. 13.Anxiety, depression. 14.Obesity with body mass index of 54.9. RECOMMENDATIONS AND DISCUSSION: In this 52-year-old woman who presented with multiple complex medical issues, we will monitor the patient closely, continue the current medications. Will optimize the bronchodilator treatment. I would also recommend empiric antibiotics. Closely follow with Dr. Hollingsworth. Will obtain cultures. Steroids. I recommend IV insulin drip steroids and continue the rest of the home medication. Medication reconciliation done. Otherwise, prognosis guarded because of multiple complex medical issues. Further recommendations to follow. MMODL / IJN: [id number] /
[2017-08-19 23:20] LABS: Glucose,Whole Blood 391 mg/dL (75-99)
[2017-08-20 00:10] LABS: Glucose,Whole Blood 408 mg/dL (75-99)
[2017-08-20 00:30] LABS: Glucose,Whole Blood 355 mg/dL (75-99)
[2017-08-20] MEDS: methylPREDNISolone SOD SUCCI 125 MG/2 ML VIAL IV SCH ×5 (00:33→23:40)
[2017-08-20] MEDS: KETOROLAC 30 MG/ML 1 ML VIAL IVP SCH ×5 (00:51→23:41)
[2017-08-20 01:06] LABS: Glucose,Whole Blood 294 mg/dL (75-99)
[2017-08-20] MEDS: IPRATROPIUM-ALBUTEROL 3 ML NEB INHALATION SCH ×6 (01:31→19:25)
[2017-08-20 01:40] LABS: Glucose,Whole Blood 281 mg/dL (75-99)
[2017-08-20 01:46] LABS: Hemoglobin A1C 8.1 % (4.0-6.0)
[2017-08-20 02:09] LABS: Glucose,Whole Blood 233 mg/dL (75-99)
[2017-08-20 04:05] LABS: Glucose,Whole Blood 178 mg/dL (75-99)
[2017-08-20] MEDS: INSULIN REGULAR 100 UNIT in SODIUM CHLORIDE 0.9% 100 ML IV SCH ×2 (05:00→20:22)
[2017-08-20] MEDS: VANCOMYCIN 2,000 MG in SODIUM CHLORIDE 0.9% 500 ML IVPB SCH ×2 (05:53→20:25)
[2017-08-20] MEDS: LEVOTHYROXINE 125 MCG TAB PO SCH (05:53)
[2017-08-20 05:56] LABS: Glucose,Whole Blood 134 mg/dL (75-99)
[2017-08-20 07:29] LABS: Glucose,Whole Blood 156 mg/dL (75-99)
[2017-08-20] MEDS ORDERED: SYMBICORT 160-4.5 MCG INHALER INHALATION SCH (08:00)
[2017-08-20] MEDS: INSULIN ASPART 100 UNIT/ML 1 ML 10 ML VIAL SQ SCH ×3 (08:03→18:09)
[2017-08-20] MEDS: FLUTICASONE 50MCG/SPRAY NASAL 16GM EA NOSTRIL SCH (08:11)
[2017-08-20] MEDS: OSELTAMIVIR 75 MG CAP PO SCH ×2 (08:11→20:26)
[2017-08-20] MEDS: ATORVASTATIN 20 MG TAB PO SCH (08:11)
[2017-08-20] MEDS: METOPROLOL SUCCINATE (ER) 50 MG TAB.ER.24H PO SCH ×2 (08:11→20:26)
[2017-08-20] MEDS: FUROSEMIDE 20 MG TAB PO SCH ×2 (08:11→15:54)
[2017-08-20] MEDS: PANTOPRAZOLE 40 MG TABLET PO SCH ×2 (08:11→16:35)
[2017-08-20] MEDS: ESCITALOPRAM 20 MG TAB PO SCH (08:11)
[2017-08-20] MEDS: HEPARIN SODIUM,PORCINE 5,000 UNIT/ML 1 ML VIAL SQ SCH ×2 (08:11→20:25)
[2017-08-20] MEDS: POTASSIUM CHLORIDE ER 20 MEQ TAB.ER PO SCH ×2 (08:11→20:26)
[2017-08-20] MEDS: GABAPENTIN 300 MG CAP PO SCH ×3 (08:12→20:26)
[2017-08-20] MEDS: ASPIRIN 81 MG PO SCH (08:12)
[2017-08-20] MEDS: FERROUS SULFATE 325 MG TAB PO SCH (08:12)
[2017-08-20] MEDS: LORATADINE 10 MG TAB PO SCH (08:12)
[2017-08-20] MEDS: cefTRIAXone IN SWFI 1,000 MG/10 ML SYRINGE IVP SCH (08:18)
[2017-08-20 08:29] LABS: Glucose,Whole Blood 179 mg/dL (75-99)
[2017-08-20 08:35] LABS: Basophils % (A) 0 %; Eosinophils % (A) 0 %; HGB 11.3 gm/dL (11.4-16.0); Lymphocytes # (A) 0.5 k/uL (1.0-4.8); Lymphocytes % (A) 20 %; MCH 28.7 pg (25.0-35.0); MCHC 31.5 g/dL (31.0-37.0); MCV 91.1 fL (80.0-100.0); Mean Platelet Volume 6.7; Monocytes # (A) 0.1 k/uL (0-1.0); Monocytes % (A) 3 %; Neutrophils % (A) 74 %; Platelet Count 158 k/uL (150-450); RBC 3.95 m/uL (3.80-5.40); RDW 14.2 % (11.5-15.5); WBC 2.7 k/uL (3.8-10.6)
[2017-08-20] MEDS: AZITHROMYCIN 500 MG in SODIUM CHLORIDE 0.9% 250 ML IVPB SCH (08:55)
[2017-08-20 09:05] LABS: Anion Gap 13 mmol/L; Blood Urea Nitrogen 18 mg/dL (7-17); Calcium 9.1 mg/dL (8.4-10.2); Carbon Dioxide 23 mmol/L (22-30); Chloride 104 mmol/L (98-107); Glucose 175 mg/dL (74-99); Potassium 4.4 mmol/L (3.5-5.1); Sodium 140 mmol/L (137-145)
[2017-08-20 09:59] LABS: Glucose,Whole Blood 396 mg/dL (75-99)
[2017-08-20 09:59] LABS: Glucose,Whole Blood 470 mg/dL (75-99)
[2017-08-20 10:09] LABS: Glucose,Whole Blood 374 mg/dL (75-99)
[2017-08-20 11:47] LABS: Glucose,Whole Blood 267 mg/dL (75-99)
--- NOTE | 2017-08-20 11:49 | P.CNPUL ---
History of Present Illness Consult date: 08/20/17 Reason for consult: dyspnea, cough, COPD, hypoxemia Chief complaint: Shortness of breath, wheezing History of present illness: Consult dated 08/20/2017 This is a 52-year-old female who presented to the emergency department with multiple complaints. One of her issues with left foot pain and swelling. We are consulted primarily because of shortness of breath. The shortness of breath and the going on for at least a week or so. She's had that chest tightness wheezing coughing. Coughing up some phlegm. Apparently I saw her recently and at that time she was treated for a COPD exacerbation with steroids antibiotics and inhalers. She improved initially but apparently got worse again. The patient states that she did not have a fever. There is no nausea vomiting or diarrhea. No chest pain or chest discomfort. She did have some chest tightness. She had a chest x-ray which did not show anything acutely. She also had a Doppler of the left lower shimmy which was negative for DVT. The patient's feeling a bit better today. She was evaluated in the emergency room yesterday. Her primary care physician is Dr. Soto. Her past medical history includes hyperlipidemia insomnia COPD hypothyroidism obesity hypertension GERD. Review of Systems A 12 point review of system is positive for left lower extremity pain and swelling as well as left foot swelling. Dopplers are negative. In addition, she complains of shortness of breath chest tightness wheezing cough chest congestion and shortness of breath. She is coughing up a small amount of phlegm. Past Medical History Past Medical History: Asthma, GERD/Reflux, Hyperlipidemia, Hypertension, Thyroid Disorder Additional Past Medical History / Comment(s): Chronic back pain, neuropathy L hand, L hand 2nd and 3rd fingers are "locking up" at times, hypothyroid, iron deficiency anemia, insomnia, sinus problems. History of Any Multi-Drug Resistant Organisms: None Reported Past Surgical History: Adenoidectomy, Heart Catheterization, Tonsillectomy, Tubal Ligation Additional Past Surgical History / Comment(s): carpel tunnel right wrist, bilateral cataract removal, bilateral laser eye surgery/lens implants, colonoscopy, epidural injections with last time being 1 week ago. Past Anesthesia/Blood Transfusion Reactions: No Reported Reaction Past Psychological History: Anxiety, Depression Additional Psychological History / Comment(s): Pt states her anxiety and depression are managed with her medications. She lives alone and is independent. Smoking Status: Never smoker Past Alcohol Use History: None Reported Past Drug Use History: None Reported - Past Family History Mother Family Medical History: Cancer Father Family Medical History: No Reported History Additional Family Medical History / Comment(s): Father is living. Medications and Allergies Home Medications Medication Instructions Recorded Confirmed Type Escitalopram Oxalate [Lexapro] 20 mg PO QAM 05/04/16 08/19/17 History Ferrous Sulfate [Feosol] 325 mg PO DAILY 05/04/16 08/19/17 History Ibuprofen [Motrin] 600 mg PO Q8HR PRN #30 tab 05/04/16 08/19/17 Rx Metoprolol Succinate [Toprol XL] 50 mg PO BID 05/04/16 08/19/17 History Omeprazole [PriLOSEC] 20 mg PO AC-BID 05/04/16 08/19/17 History Aspirin [Adult Low Dose Aspirin EC] 81 mg PO DAILY 10/26/16 08/19/17 History Atorvastatin [Lipitor] 20 mg PO DAILY 10/26/16 08/19/17 History Fluticasone Nasal [place] [Flonase 1 spray EA NOSTRIL DAILY 10/26/16 08/19/17 History Nasal [place]] Loratadine [Claritin] 10 mg PO DAILY 10/26/16 08/19/17 History Zolpidem [Ambien] 10 mg PO HS 10/26/16 08/19/17 History Albuterol Inhaler [Ventolin Hfa 1 - 2 puff INHALATION RT-Q6H PRN 08/19/17 History Inhaler] Budesonide/Formoterol Fumarate 2 puff INHALATION RT-BID 08/19/17 08/19/17 History [Symbicort 160-4.5 Mcg Inhaler] Furosemide [Lasix] 20 mg PO BID 08/19/17 08/19/17 History Gabapentin [Neurontin] 300 mg PO TID 08/19/17 08/19/17 History Levothyroxine Sodium [Synthroid] 125 mcg PO DAILY 08/19/17 08/19/17 History Nystatin 100,000 Unit/gm Powd 1 applic TOPICAL BID PRN 08/19/17 08/19/17 History [Mycostatin Powder] Potassium Chloride [Klor-Con 20] 20 meq PO BID 08/19/17 08/19/17 History Allergies Allergy/AdvReac Type Severity Reaction Status Date / Time Penicillins Allergy Rash/Hives Verified 08/19/17 08:47 Physical Exam Osteopathic Statement: *. No significant issues noted on an osteopathic structural exam other than those noted in the History and Physical/Consult. Vitals: Vital Signs Temp Pulse Pulse Resp BP BP Pulse Ox 08/20/17 08:10 68 18 08/20/17 06:06 97.1 F L 76 18 132/72 93 L 08/20/17 04:13 88 08/20/17 04:02 84 08/20/17 01:45 88 08/20/17 01:31 80 08/19/17 23:00 97.0 F L 84 18 132/79 91 L 08/19/17 19:44 88 16 08/19/17 19:33 82 16 08/19/17 16:14 98 08/19/17 16:11 80 08/19/17 16:01 80 18 08/19/17 15:19 97.1 F L 93 16 138/73 92 L 08/19/17 12:42 93 18 105/56 96 08/19/17 12:08 98.3 F 99 19 105/64 95 Intake and Output 08/19/17 08/20/17 08/20/17 22:59 06:59 14:59 Intake Total 106.900 15.8 Balance 106.900 15.8 Intake: Intake, IV Titration 106.900 15.8 Amount Insulin Regular 100 unit 106.900 15.8 In Sodium Chloride 0.9% 100 ml @ Titrate IV .Q0M [facility] Rx#:[id number] Other: Voiding Method Toilet # Voids 1 2 1 Weight 136.078 kg No acute distress, oriented 3. HEENT examination is grossly unremarkable. Mucous membranes are moist. No oral lesions. Neck supple. Full range of motion. No adenopathy thyromegaly or neck vein distention. Cardiovascular examination reveals regular rhythm rate. S1-S2 normal. No S3 or S4. No discernible murmur noted. Lungs reveal diffuse inspiratory and expiratory wheezes and rhonchi. Breath sounds are diminished. There is prolongation on forced maneuver. Abdomen soft bowel sounds are heard. No masses or tenderness. Extremities some edema and erythema of the left lower extremity. There is some pitting. The some chronic venous stasis changes. Skin is without rash or lesion. Neurologic examination is brief but nonfocal. Results - Laboratory Findings CBC and BMP: 08/20/17 07:44 08/20/17 07:44 PT/INR, D-dimer PT 9.9 sec (9.0-12.0) 08/19/17 09:00 INR 1.0 (<1.2) 08/19/17 09:00 Abnormal lab findings: Abnormal Labs 08/19/17 08/19/17 08/19/17 09:00 09:00 09:00 WBC 3.1 L Hgb Lymphocytes # Lymphocytes # (Manual) 0.99 L APTT BUN Glucose 158 H POC Glucose (mg/dL) Hemoglobin A1c C-Reactive Protein 20.9 H Influenza Type B (PCR) Detected H 08/19/17 08/19/17 08/19/17 09:00 09:00 20:29 WBC Hgb Lymphocytes # Lymphocytes # (Manual) APTT 20.5 L BUN Glucose POC Glucose (mg/dL) 426 H Hemoglobin A1c 8.1 H C-Reactive Protein Influenza Type B (PCR) 08/19/17 08/19/17 08/19/17 22:20 23:18 23:59 WBC Hgb Lymphocytes # Lymphocytes # (Manual) APTT BUN Glucose POC Glucose (mg/dL) 404 H 391 H 408 H Hemoglobin A1c C-Reactive Protein Influenza Type B (PCR) 08/20/17 08/20/17 08/20/17 00:29 01:05 01:38 WBC Hgb Lymphocytes # Lymphocytes # (Manual) APTT BUN Glucose POC Glucose (mg/dL) 355 H 294 H 281 H Hemoglobin A1c C-Reactive Protein Influenza Type B (PCR) 08/20/17 08/20/17 08/20/17 02:08 04:04 05:55 WBC Hgb Lymphocytes # Lymphocytes # (Manual) APTT BUN Glucose POC Glucose (mg/dL) 233 H 178 H 134 H Hemoglobin A1c C-Reactive Protein Influenza Type B (PCR) 08/20/17 08/20/17 08/20/17 07:10 07:44 07:44 WBC 2.7 L Hgb 11.3 L Lymphocytes # 0.5 L Lymphocytes # (Manual) APTT BUN 18 H Glucose 175 H POC Glucose (mg/dL) 156 H Hemoglobin A1c C-Reactive Protein Influenza Type B (PCR) 08/20/17 08/20/17 08/20/17 08:17 09:55 09:56 WBC Hgb Lymphocytes # Lymphocytes # (Manual) APTT BUN Glucose POC Glucose (mg/dL) 179 H 470 H 396 H Hemoglobin A1c C-Reactive Protein Influenza Type B (PCR) 08/20/17 10:05 WBC Hgb Lymphocytes # Lymphocytes # (Manual) APTT BUN Glucose POC Glucose (mg/dL) 374 H Hemoglobin A1c C-Reactive Protein Influenza Type B (PCR) - Diagnostic Findings Chest x-ray: image reviewed U/S of Legs: image reviewed (Chest x-ray Dopplers of the legs labs and medications are all reviewed.) Assessment and Plan Assessment: Assessment COPD exacerbation complicated by purulent tracheobronchitis. History of hypertension History of hypothyroidism History of insomnia Gastroesophageal reflux disease Hyperlipidemia Left leg swelling and cellulitis, without evidence of deep venous thrombosis Obesity Plan: Plan dated 08/20/2017 Medications labs x-rays and Doppler of the lower extremities are reviewed. There is no evidence of DVT. There is cellulitis and swelling of the left lower extremity. In addition, she has a COPD exacerbation. She should be treated with short acting beta agonist, short acting muscarinic antagonist, inhaled corticosteroids, long-acting beta agonist, systemic corticosteroids, and antibiotics. X-rays reviewed. Nothing acute seen. Additional recommendations and suggestions are forthcoming. Prognosis is guarded. Time with Patient: Greater than 30
[2017-08-20 14:07] LABS: Glucose,Whole Blood 206 mg/dL (75-99)
[2017-08-20 16:28] LABS: Glucose,Whole Blood 224 mg/dL (75-99)
[2017-08-20 18:04] LABS: Glucose,Whole Blood 198 mg/dL (75-99)
[2017-08-20] MEDS: BUDESONIDE 1 MG/2 ML NEBU INHALATION SCH (19:25)
[2017-08-20] MEDS: FORMOTEROL FUMARATE 20 MCG/2 ML NEBU INHALATION SCH (19:37)
--- NOTE | 2017-08-20 19:59 | PN ---
PROGRESS NOTE DATE OF SERVICE: 08/20/2017. INTERVAL HISTORY: This 52-year-old woman who was admitted with asthma, acute exacerbation also had acute influenza B. The patient still has significant shortness of breath . The patient is on bronchodilators and antibiotics also. The patient is on antivirals as well. Dr. Hollingsworth is following the patient closely. No chest pain. No palpitations. No fever. PHYSICAL EXAMINATION: Alert and oriented x3. The pulse is 61. Blood pressure 117/77, respiration 18, temperature 97.1, pulse ox 91% on room air. HEENT: Conjunctivae normal. Neck: No jugular venous distention. Cardiovascular: S1, S2 muffled. Respiratory: Breath sounds diminished in the bases. Bilateral scattered rhonchi and crackles. Expiratory wheezing also present. Abdomen soft, nontender. Legs: No edema and no swelling. Central nervous system: No focal deficits. LAB STUDIES: WBC 2.7, hemoglobin 11.3, otherwise glucose 206. Influenza B is positive. ASSESSMENT: 1. Acute asthma exacerbation with acute purulent tracheobronchitis. 2. Acute influenza B. 3. Diabetes possibly new onset uncontrolled. 4. Acute cellulitis of the left foot. 5. Leukopenia. 6. Gastroesophageal reflux disease. 7. Asthma. 8. Hyperlipidemia. 9. Hypertension. 10.Hypothyroid. 11.Chronic back pain and recent epidural injection. 12.History of cardiac catheterization. 13.Anxiety, depression. 14.Obesity with body mass index of 54.9. RECOMMENDATIONS AND DISCUSSION: Recommend to continue current medication, continue to monitor. Symptomatic treatment. Otherwise at this time, continue with intensive bronchodilator treatment and continued empiric antibiotics. Continue the steroids. Closely follow with Dr. Hollingsworth. Guarded prognosis. Further Recommendations to follow. MMODL / IJN: [id number] / MTDD
[2017-08-20 20:04] LABS: Glucose,Whole Blood 325 mg/dL (75-99)
[2017-08-20] MEDS: ZOLPIDEM 10 MG TAB PO SCH (20:25)
[2017-08-20] MEDS: ACETAMINOPHEN TAB 325 MG TAB PO PRN (20:26)
[2017-08-20 22:07] LABS: Glucose,Whole Blood 260 mg/dL (75-99)
[2017-08-21 00:03] LABS: Glucose,Whole Blood 201 mg/dL (75-99)
[2017-08-21] MEDS: IPRATROPIUM-ALBUTEROL 3 ML NEB INHALATION SCH ×7 (00:22→23:30)
[2017-08-21 02:10] LABS: Glucose,Whole Blood 174 mg/dL (75-99)
[2017-08-21 05:13] LABS: Glucose,Whole Blood 162 mg/dL (75-99)
[2017-08-21 06:03] LABS: Glucose,Whole Blood 239 mg/dL (75-99)
[2017-08-21] MEDS: KETOROLAC 30 MG/ML 1 ML VIAL IVP SCH ×4 (06:10→23:12)
[2017-08-21] MEDS: LEVOTHYROXINE 125 MCG TAB PO SCH (06:11)
[2017-08-21] MEDS: methylPREDNISolone SOD SUCCI 125 MG/2 ML VIAL IV SCH ×4 (06:11→23:12)
[2017-08-21 07:33] LABS: Glucose,Whole Blood 160 mg/dL (75-99)
[2017-08-21] MEDS: HEPARIN SODIUM,PORCINE 5,000 UNIT/ML 1 ML VIAL SQ SCH ×2 (07:51→21:26)
[2017-08-21] MEDS: FLUTICASONE 50MCG/SPRAY NASAL 16GM EA NOSTRIL SCH (07:51)
[2017-08-21] MEDS: METOPROLOL SUCCINATE (ER) 50 MG TAB.ER.24H PO SCH ×2 (07:52→21:26)
[2017-08-21] MEDS: PANTOPRAZOLE 40 MG TABLET PO SCH ×2 (07:52→15:59)
[2017-08-21] MEDS: INSULIN ASPART 100 UNIT/ML 1 ML 10 ML VIAL SQ SCH ×3 (07:52→17:42)
[2017-08-21] MEDS: cefTRIAXone IN SWFI 1,000 MG/10 ML SYRINGE IVP SCH (07:52)
[2017-08-21] MEDS: LORATADINE 10 MG TAB PO SCH ×2 (07:52→07:53)
[2017-08-21] MEDS: POTASSIUM CHLORIDE ER 20 MEQ TAB.ER PO SCH (07:52)
[2017-08-21] MEDS: ATORVASTATIN 20 MG TAB PO SCH (07:52)
[2017-08-21] MEDS: OSELTAMIVIR 75 MG CAP PO SCH ×2 (07:52→21:26)
[2017-08-21] MEDS: ASPIRIN 81 MG PO SCH (07:52)
[2017-08-21] MEDS: GABAPENTIN 300 MG CAP PO SCH ×3 (07:53→21:27)
[2017-08-21] MEDS: ESCITALOPRAM 20 MG TAB PO SCH (07:53)
[2017-08-21] MEDS: FUROSEMIDE 20 MG TAB PO SCH ×2 (07:53→15:59)
[2017-08-21] MEDS: FERROUS SULFATE 325 MG TAB PO SCH (07:54)
[2017-08-21 08:22] LABS: Basophils % (A) 0 %; Eosinophils % (A) 0 %; HCT 35.3 % (34.0-46.0); HGB 11.3 gm/dL (11.4-16.0); Lymphocytes # (A) 0.8 k/uL (1.0-4.8); Lymphocytes % (A) 12 %; MCH 28.7 pg (25.0-35.0); MCHC 32.1 g/dL (31.0-37.0); MCV 89.6 fL (80.0-100.0); Mean Platelet Volume 7.4; Monocytes # (A) 0.2 k/uL (0-1.0); Monocytes % (A) 2 %; Neutrophils # (A) 5.6 k/uL (1.3-7.7); Neutrophils % (A) 85 %; Platelet Count 176 k/uL (150-450); RBC 3.94 m/uL (3.80-5.40); RDW 14.6 % (11.5-15.5); WBC 6.5 k/uL (3.8-10.6)
[2017-08-21 08:46] LABS: Anion Gap 9 mmol/L; Blood Urea Nitrogen 22 mg/dL (7-17); Calcium 9.6 mg/dL (8.4-10.2); Carbon Dioxide 28 mmol/L (22-30); Chloride 106 mmol/L (98-107); Glucose 147 mg/dL (74-99); Potassium 5.3 mmol/L (3.5-5.1); Sodium 143 mmol/L (137-145)
[2017-08-21] MEDS ORDERED: AZITHROMYCIN 500 MG TAB PO SCH (09:00)
[2017-08-21] MEDS: FORMOTEROL FUMARATE 20 MCG/2 ML NEBU INHALATION SCH ×2 (09:15→19:20)
[2017-08-21] MEDS: BUDESONIDE 1 MG/2 ML NEBU INHALATION SCH ×2 (09:15→19:20)
[2017-08-21 10:08] LABS: Glucose,Whole Blood 211 mg/dL (75-99)
[2017-08-21] MEDS: guaiFENesin 600 MG TABLET.ER PO SCH ×2 (11:11→21:26)
[2017-08-21] MEDS ORDERED: VANCOMYCIN TROUGH DUE 1 EACH MISC MISCELLANE ONE (12:00)
[2017-08-21 12:05] LABS: Glucose,Whole Blood 114 mg/dL (75-99)
[2017-08-21] MEDS: INSULIN REGULAR 100 UNIT in SODIUM CHLORIDE 0.9% 100 ML IV SCH (12:16)
--- NOTE | 2017-08-21 12:18 | P.PN ---
Subjective Progress Note Date: 08/21/17 Principal diagnosis: COPD exacerbation complicated by purulent tracheobronchitis Consult dated 08/20/2017 This is a 52-year-old female who presented to the emergency department with multiple complaints. One of her issues with left foot pain and swelling. We are consulted primarily because of shortness of breath. The shortness of breath and the going on for at least a week or so. She's had that chest tightness wheezing coughing. Coughing up some phlegm. Apparently I saw her recently and at that time she was treated for a COPD exacerbation with steroids antibiotics and inhalers. She improved initially but apparently got worse again. The patient states that she did not have a fever. There is no nausea vomiting or diarrhea. No chest pain or chest discomfort. She did have some chest tightness. She had a chest x-ray which did not show anything acutely. She also had a Doppler of the left lower shimmy which was negative for DVT. The patient's feeling a bit better today. She was evaluated in the emergency room yesterday. Her primary care physician is Dr. Soto. Her past medical history includes hyperlipidemia insomnia COPD hypothyroidism obesity hypertension GERD. On 08/13/2017 patient is seen in follow-up. Still remains quite wheezy, unable to clear any secretions. Patient is currently on combination of Tamiflu, Rocephin, Zithromax, and vancomycin was added by ID service for the left lower leg cellulitis. Patient is on room air, with O2 sat at 92%. She remains afebrile. Urine and blood cultures are pending. Continue with current plan of care, not ready for discharge home today. Objective - Vital Signs Vital signs: Vital Signs Temp 97.0 F L 08/21/17 06:41 Pulse 80 08/21/17 09:39 Resp 16 08/21/17 06:41 BP 133/65 08/21/17 06:41 Pulse Ox 92 L 08/21/17 06:41 Intake & Output 08/20/17 08/21/17 08/21/17 18:59 06:59 18:59 Intake Total 595.100 84.983 16.017 Balance 595.100 84.983 16.017 Intake: Intake, IV Titration 595.100 84.983 16.017 Amount Insulin Regular 100 unit 95.100 84.983 16.017 In Sodium Chloride 0.9% 100 ml @ Titrate IV .Q0M [facility] Rx#:[id number] Vancomycin 2,000 mg In 500 Sodium Chloride 0.9% 500 ml @ 167 mls/hr IVPB Q16H [facility] Rx#:[id number] Other: Voiding Method Toilet # Voids 1 1 # Bowel Movements 1 - Exam No acute distress, oriented 3. HEENT examination is grossly unremarkable. Mucous membranes are moist. No oral lesions. Neck supple. Full range of motion. No adenopathy thyromegaly or neck vein distention. Cardiovascular examination reveals regular rhythm rate. S1-S2 normal. No S3 or S4. No discernible murmur noted. Lungs reveal diffuse inspiratory and expiratory wheezes and rhonchi. Breath sounds are diminished. There is prolongation on forced maneuver. Abdomen soft bowel sounds are heard. No masses or tenderness. Extremities some edema and erythema of the left lower extremity. There is some pitting. The some chronic venous stasis changes. Skin is without rash or lesion. Neurologic examination is brief but nonfocal. - Labs CBC & Chem 7: 08/21/17 08:04 08/21/17 08:04 Labs: Abnormal Lab Results - Last 24 Hours (Table) 08/20/17 08/20/17 08/20/17 Range/Units 14:05 16:26 18:02 Hgb (11.4-16.0) gm/dL Lymphocytes # (1.0-4.8) k/uL Potassium (3.5-5.1) mmol/L BUN (7-17) mg/dL Glucose (74-99) mg/dL POC Glucose (mg/dL) 206 H 224 H 198 H (75-99) mg/dL 08/20/17 08/20/17 08/21/17 Range/Units 20:02 22:06 00:02 Hgb (11.4-16.0) gm/dL Lymphocytes # (1.0-4.8) k/uL Potassium (3.5-5.1) mmol/L BUN (7-17) mg/dL Glucose (74-99) mg/dL POC Glucose (mg/dL) 325 H 260 H 201 H (75-99) mg/dL 08/21/17 08/21/17 08/21/17 Range/Units 02:08 05:11 06:01 Hgb (11.4-16.0) gm/dL Lymphocytes # (1.0-4.8) k/uL Potassium (3.5-5.1) mmol/L BUN (7-17) mg/dL Glucose (74-99) mg/dL POC Glucose (mg/dL) 174 H 162 H 239 H (75-99) mg/dL 08/21/17 08/21/17 08/21/17 Range/Units 07:28 08:04 08:04 Hgb 11.3 L (11.4-16.0) gm/dL Lymphocytes # 0.8 L (1.0-4.8) k/uL Potassium 5.3 H (3.5-5.1) mmol/L BUN 22 H (7-17) mg/dL Glucose 147 H (74-99) mg/dL POC Glucose (mg/dL) 160 H (75-99) mg/dL 08/21/17 08/21/17 Range/Units 10:05 12:01 Hgb (11.4-16.0) gm/dL Lymphocytes # (1.0-4.8) k/uL Potassium (3.5-5.1) mmol/L BUN (7-17) mg/dL Glucose (74-99) mg/dL POC Glucose (mg/dL) 211 H 114 H (75-99) mg/dL Microbiology - Last 24 Hours (Table) 08/19/17 09:00 Blood Culture - Preliminary Blood No Growth after 48 hours 08/20/17 16:00 Urine Culture - Preliminary Urine,Clean Catch Assessment and Plan Plan: Assessment: #1 COPD exacerbation complicated by purulent tracheobronchitis. #2 History of hypertension #3 History of hypothyroidism #4 History of insomnia #5 Gastroesophageal reflux disease #6 Hyperlipidemia #7 Left leg swelling and cellulitis, without evidence of deep venous thrombosis Obesity Plan: Plan dated 08/20/2017 Medications labs x-rays and Doppler of the lower extremities are reviewed. There is no evidence of DVT. There is cellulitis and swelling of the left lower extremity. In addition, she has a COPD exacerbation. She should be treated with short acting beta agonist, short acting muscarinic antagonist, inhaled corticosteroids, long-acting beta agonist, systemic corticosteroids, and antibiotics. X-rays reviewed. Nothing acute seen. Additional recommendations and suggestions are forthcoming. Prognosis is guarded. On 08/21/2017 patient still remains wheezing, and dyspneic with any exertion. We will continue with current plan of care, IV steroids, Tamiflu, Rocephin, Zithromax, and vancomycin. Not ready for discharge yet. We'll add Mucinex. I performed a history & physical examination of the patient and discussed their management with my nurse practitioner, Flori Colunga. I reviewed the nurse practitioner's note and agree with the documented findings and plan of care. Lung sounds are positive for diffuse wheezesthroughout the lung reyna. The findings and the impression was discussed with the patient. I attest to the documentation by the nurse practitioner. Time with Patient: Less than 30
[2017-08-21] MEDS: VANCOMYCIN 2,000 MG in SODIUM CHLORIDE 0.9% 500 ML IVPB SCH (12:46)
[2017-08-21 13:10] LABS: Glucose,Whole Blood 122 mg/dL (75-99)
[2017-08-21 14:17] LABS: Glucose,Whole Blood 276 mg/dL (75-99)
[2017-08-21 16:13] LABS: Glucose,Whole Blood 187 mg/dL (75-99)
[2017-08-21 17:40] LABS: Glucose,Whole Blood 171 mg/dL (75-99)
[2017-08-21 20:22] LABS: Glucose,Whole Blood 237 mg/dL (75-99)
[2017-08-21] MEDS: ZOLPIDEM 10 MG TAB PO SCH (21:29)
--- NOTE | 2017-08-21 22:51 | P.CONS ---
History of Present Illness - Reason for Consult Consult date: 08/21/17 - Chief Complaint Fever - History of Present Illness 52-year-old female presents to Hospital from home because she was not feeling well with fever and having difficulties with several days of increasing pain and swelling and erythema to her left foot. She is a known history of asthma and she thought this was worsening where she was having increasing wheezing and shortness of breath. With these symptoms she presented to the emergency center was on evidence of influenza B as well as a cellulitis to her left foot when she was admitted to hospital. She's been seen by her cell biologist and infectious diseases consultation was requested regarding her cellulitis to her left foot. The patient relates the foot remains somewhat uncomfortable. It significantly bothers her especially when is in the dependent position. She however feels more short of breath with her legs are elevated. Is not she felt she was having a fever but is denying chills or rigors. The patient does have severe obesity and does have difficulties with some lower extremity edema but current problem is more unilateral to the left foot and is quite uncomfortable. Patient has had x-ray of the foot without evidence of fracture or foreign body. In a duplex of the left lower extremity failed to reveal evidence of a deep venous thrombosis. The patient denies any trauma before the onset of this difficulty. She also does not have any long trips or changes in her activity Review of Systems HEENT:Denies headache or acute visual change. Denies sinus or mouth discomforts. Denies neck stiffness or pain. Denies significant oral cavity pain. Denies difficulty on swallowing. Lungs: As per the HPI has ongoing shortness of breath wheezing cough without hemoptysis or spitting and sputum production Cardiovascular: Denies significant shortness of breath chest pain, chest wall pain, orthopnea, ,syncope but does relate to some dyspnea on exertion. Gastrointestinal:Denies nausea, vomiting, diarrhea, constipation, hematemesis, melena, hematochezia. No no significant change of bowel habit noticed. Musculoskeletal: denies significant myalgias or arthralgias. No new joint swelling. Denies new back pain. Skin: As per the HPI Neuro: Denies headache or visual change. Denies any new onset weakness or difficulty with ambulation. Denies falls or seizures. Psychiatric:Denies anxiety or depression. Endocrine: Denies significant fatigue, denies significant weight loss or weight gain. Past Medical History Past Medical History: Asthma, GERD/Reflux, Hyperlipidemia, Hypertension, Thyroid Disorder Additional Past Medical History / Comment(s): Chronic back pain, neuropathy L hand, L hand 2nd and 3rd fingers are "locking up" at times, hypothyroid, iron deficiency anemia, insomnia, sinus problems. History of Any Multi-Drug Resistant Organisms: None Reported Past Surgical History: Adenoidectomy, Heart Catheterization, Tonsillectomy, Tubal Ligation Additional Past Surgical History / Comment(s): carpel tunnel right wrist, bilateral cataract removal, bilateral laser eye surgery/lens implants, colonoscopy, epidural injections with last time being 1 week ago. Past Anesthesia/Blood Transfusion Reactions: No Reported Reaction Past Psychological History: Anxiety, Depression Additional Psychological History / Comment(s): Pt states her anxiety and depression are managed with her medications. She lives alone and is independent. No experience. No international travel. Pet dogs in the home cared for by significant other. Is not a current tobacco smoker or significant alcohol user Smoking Status: Never smoker Past Alcohol Use History: None Reported Past Drug Use History: None Reported - Past Family History Mother Family Medical History: Cancer Father Family Medical History: No Reported History Additional Family Medical History / Comment(s): Father is living. Medications and Allergies Home Medications and Allergies Comment(s): Current Medications Acetaminophen (Tylenol Tab) 650 mg PO Q6HR PRN PRN Reason: Mild Pain or Fever > 100.5 Last Admin: 08/20/17 20:26 Dose: 650 mg Hydrocodone Bitart/Acetaminophen (Maupin 5-325) 1 each PO Q4HR PRN PRN Reason: Moderate Pain Albuterol/Ipratropium (Duoneb 0.5 Mg-3 Mg/3 Ml Soln) 3 ml INHALATION RT-Q4H [facility] Last Admin: 08/21/17 19:20 Dose: 3 ml Alprazolam (Xanax) 0.25 mg PO TID PRN PRN Reason: Anxiety Aspirin (Aspirin) 81 mg PO DAILY [facility] Last Admin: 08/21/17 07:52 Dose: 81 mg Atorvastatin Calcium (Lipitor) 20 mg PO DAILY [facility] Last Admin: 08/21/17 07:52 Dose: 20 mg Budesonide (Pulmicort) 1 mg INHALATION RT-BID [facility] Last Admin: 08/21/17 19:20 Dose: 1 mg Escitalopram Oxalate (Lexapro) 20 mg PO QAM [facility] Last Admin: 08/21/17 07:53 Dose: 20 mg Ferrous Sulfate (Feosol) 325 mg PO 1200 [facility] Last Admin: 08/21/17 07:54 Dose: 325 mg Fluticasone Propionate (Flonase Nasal Seanor) 1 spray EA NOSTRIL DAILY [facility] Last Admin: 08/21/17 07:51 Dose: 1 spray Formoterol Fumarate (Perforomist) 20 mcg INHALATION RT-BID [facility] Last Admin: 08/21/17 19:20 Dose: 20 mcg Furosemide (Lasix) 20 mg PO BID@0900,1600 [facility] Last Admin: 08/21/17 15:59 Dose: 20 mg Gabapentin (Neurontin) 300 mg PO TID [facility] Last Admin: 08/21/17 21:27 Dose: 300 mg Guaifenesin (Mucinex) 1,200 mg PO Q12HR [facility] Last Admin: 08/21/17 21:26 Dose: 1,200 mg Heparin Sodium (Porcine) (Heparin) 5,000 unit SQ Q12HR [facility] Last Admin: 08/21/17 21:26 Dose: 5,000 unit Vancomycin HCl 2,000 mg/ (Sodium Chloride) 500 mls @ 167 mls/hr IVPB Q16H [facility] Last Admin: 08/21/17 12:46 Dose: 167 mls/hr Insulin Human Regular 100 unit (/ Sodium Chloride) 101 mls @ 0 mls/hr IV .Q0M [facility]; Titrate PRN Reason: Protocol Last Titration: 08/21/17 20:24 Dose: 8 mls/hr, 8 mls/hr Ibuprofen (Motrin) 600 mg PO Q8HR PRN PRN Reason: Pain Insulin Aspart (Novolog) 18 unit 0.13 unit/kg (18 unit) SQ AC-TID [facility] Last Admin: 08/21/17 17:42 Dose: 18 unit Ketorolac Tromethamine (Toradol) 15 mg IVP Q6HR [facility] Stop: 08/23/17 15:26 Last Admin: 08/21/17 17:26 Dose: 15 mg Levothyroxine Sodium (Synthroid) 125 mcg PO 0630 [facility] Last Admin: 08/21/17 06:11 Dose: 125 mcg Loratadine (Claritin) 10 mg PO DAILY [facility] Last Admin: 08/21/17 07:53 Dose: 10 mg Methylprednisolone Sodium Succinate (Solu-Medrol) 60 mg IV Q6HR [facility] Last Admin: 08/21/17 17:29 Dose: 60 mg Metoprolol Succinate (Toprol Xl) 50 mg PO BID [facility] Last Admin: 08/21/17 21:26 Dose: 50 mg Morphine Sulfate (Morphine Oral Micheline 2mg/Ml) 12 mg PO Q4HR PRN PRN Reason: Severe Pain Naloxone HCl (Narcan) 0.2 mg IV Q2M PRN PRN Reason: Opioid Reversal Nystatin (Mycostatin Powder) 1 applic TOPICAL BID PRN PRN Reason: Rash Ondansetron HCl (Zofran) 4 mg IVP Q8HR PRN PRN Reason: Nausea And Vomiting Oseltamivir Phosphate (Tamiflu) 75 mg PO BID [facility] Stop: 08/23/17 23:00 Last Admin: 08/21/17 21:26 Dose: 75 mg Pantoprazole Sodium (Protonix) 40 mg PO AC-BID [facility] Last Admin: 08/21/17 15:59 Dose: 40 mg Silver Sulfadiazine (Silvadene Cream) 1 applic TOPICAL BID [facility] Zolpidem Tartrate (Ambien) 10 mg PO [facility] Last Admin: 08/21/17 21:29 Dose: 10 mg Home Medications Medication Instructions Recorded Confirmed Type Escitalopram Oxalate [Lexapro] 20 mg PO QAM 05/04/16 08/19/17 History Ferrous Sulfate [Feosol] 325 mg PO DAILY 05/04/16 08/19/17 History Ibuprofen [Motrin] 600 mg PO Q8HR PRN #30 tab 05/04/16 08/19/17 Rx Metoprolol Succinate [Toprol XL] 50 mg PO BID 05/04/16 08/19/17 History Omeprazole [PriLOSEC] 20 mg PO AC-BID 05/04/16 08/19/17 History Aspirin [Adult Low Dose Aspirin EC] 81 mg PO DAILY 10/26/16 08/19/17 History Atorvastatin [Lipitor] 20 mg PO DAILY 10/26/16 08/19/17 History Fluticasone Nasal Seanor [Flonase 1 spray EA NOSTRIL DAILY 10/26/16 08/19/17 History Nasal Seanor] Loratadine [Claritin] 10 mg PO DAILY 10/26/16 08/19/17 History Zolpidem [Ambien] 10 mg PO HS 10/26/16 08/19/17 History Albuterol Inhaler [Ventolin Hfa 1 - 2 puff INHALATION RT-Q6H PRN 08/19/17 History Inhaler] Budesonide/Formoterol Fumarate 2 puff INHALATION RT-BID 08/19/17 08/19/17 History [Symbicort 160-4.5 Mcg Inhaler] Furosemide [Lasix] 20 mg PO BID 08/19/17 08/19/17 History Gabapentin [Neurontin] 300 mg PO TID 08/19/17 08/19/17 History Levothyroxine Sodium [Synthroid] 125 mcg PO DAILY 08/19/17 08/19/17 History Nystatin 100,000 Unit/gm Powd 1 applic TOPICAL BID PRN 08/19/17 08/19/17 History [Mycostatin Powder] Potassium Chloride [Klor-Con 20] 20 meq PO BID 08/19/17 08/19/17 History Allergies Allergy/AdvReac Type Severity Reaction Status Date / Time Penicillins Allergy Rash/Hives Verified 08/19/17 08:47 Physical Exam Vitals: Vital Signs Temp Pulse Pulse Resp BP Pulse Ox 08/21/17 19:52 88 08/21/17 19:38 80 08/21/17 19:21 80 08/21/17 16:16 76 08/21/17 16:02 76 08/21/17 15:00 97.7 F 75 16 130/72 95 08/21/17 12:39 76 08/21/17 12:25 76 08/21/17 09:39 80 08/21/17 09:30 80 08/21/17 09:28 80 08/21/17 09:16 80 08/21/17 06:41 97.0 F L 67 16 133/65 92 L 08/21/17 04:05 84 08/21/17 03:52 84 08/21/17 00:39 80 08/21/17 00:25 80 08/20/17 22:55 97.4 F L 67 16 121/56 92 L Intake and Output 08/21/17 08/21/17 08/21/17 06:59 14:59 22:59 Intake Total 49.05 516.834 40.408 Balance 49.05 516.834 40.408 Intake: IV 500 Vancomycin 2,000 mg In 500 Sodium Chloride 0.9% 500 ml @ 167 mls/hr IVPB Q16H [facility] Rx#:[id number] Intake, IV Titration 49.05 16.834 40.408 Amount Insulin Regular 100 unit 49.05 16.834 40.408 In Sodium Chloride 0.9% 100 ml @ Titrate IV .Q0M [facility] Rx#:[id number] Other: Voiding Method Toilet # Voids 1 52-year-old woman who has superobesity is comfortable at this point in time and if she is not profound short of breath but is still having some wheezing. Is complaining of some discomfort to her left foot and leg. HEENT: Anicteric conjunctiva are pink and moist nasal mucosa grossly intact without significant lesions, there is no thrush. Neck: The neck is supple without significant lymphadenopathy or thyromegaly. Lungs: There is symmetrical air entry with expiratory wheezes throughout the lung reyna there is a somewhat protracted expiratory phase. She does not have uzma bronchial sounds there is no dullness or egophony Heart: Regular rate and rhythm with an audible S1-S2, no S3 no S4. There is no significant murmur click or rub, PMI was nondisplaced. Abdomen: Obese Positive bowel sounds soft and nontender without palpable masses or organomegaly. There was no guarding or rebound. Extremities: The upper extremities have excellent pulses they are symmetric, no significant petechiae or telangiectasia. No splinter hemorrhages were noted. Extremities have evidence of the chronic venous stasis changes and some chronic lymphedema. The left foot however as the changes of significant swelling compared to the right. There is warmth and erythema and tenderness of the dorsum of the foot to the toes themselves. There is no evidence of any open ulcerations at this time. The skin is somewhat dry. Neuro: Awake alert oriented to person place and time. There are no acute new gross focal sensory motor deficits. Results CBC & Chem 7: 08/21/17 08:04 08/21/17 08:04 Labs: Abnormal Lab Results - Last 24 Hours (Table) 08/21/17 08/21/17 08/21/17 Range/Units 00:02 02:08 05:11 Hgb (11.4-16.0) gm/dL Lymphocytes # (1.0-4.8) k/uL Potassium (3.5-5.1) mmol/L BUN (7-17) mg/dL Glucose (74-99) mg/dL POC Glucose (mg/dL) 201 H 174 H 162 H (75-99) mg/dL 08/21/17 08/21/17 08/21/17 Range/Units 06:01 07:28 08:04 Hgb (11.4-16.0) gm/dL Lymphocytes # (1.0-4.8) k/uL Potassium 5.3 H (3.5-5.1) mmol/L BUN 22 H (7-17) mg/dL Glucose 147 H (74-99) mg/dL POC Glucose (mg/dL) 239 H 160 H (75-99) mg/dL 08/21/17 08/21/17 08/21/17 Range/Units 08:04 10:05 12:01 Hgb 11.3 L (11.4-16.0) gm/dL Lymphocytes # 0.8 L (1.0-4.8) k/uL Potassium (3.5-5.1) mmol/L BUN (7-17) mg/dL Glucose (74-99) mg/dL POC Glucose (mg/dL) 211 H 114 H (75-99) mg/dL 08/21/17 08/21/17 08/21/17 Range/Units 13:08 14:12 16:10 Hgb (11.4-16.0) gm/dL Lymphocytes # (1.0-4.8) k/uL Potassium (3.5-5.1) mmol/L BUN (7-17) mg/dL Glucose (74-99) mg/dL POC Glucose (mg/dL) 122 H 276 H 187 H (75-99) mg/dL 08/21/17 08/21/17 Range/Units 17:37 20:19 Hgb (11.4-16.0) gm/dL Lymphocytes # (1.0-4.8) k/uL Potassium (3.5-5.1) mmol/L BUN (7-17) mg/dL Glucose (74-99) mg/dL POC Glucose (mg/dL) 171 H 237 H (75-99) mg/dL Microbiology - Last 24 Hours (Table) 08/20/17 16:00 Urine Culture - Final Urine,Clean Catch 08/19/17 09:00 Blood Culture - Preliminary Blood No Growth after 48 hours Laboratory Results WBC 6.5 k/uL (3.8-10.6) 08/21/17 08:04 RBC 3.94 m/uL (3.80-5.40) 08/21/17 08:04 Hgb 11.3 gm/dL (11.4-16.0) L 08/21/17 08:04 Hct 35.3 % (34.0-46.0) 08/21/17 08:04 MCV 89.6 fL (80.0-100.0) 08/21/17 08:04 MCH 28.7 pg (25.0-35.0) 08/21/17 08:04 MCHC 32.1 g/dL (31.0-37.0) 08/21/17 08:04 RDW 14.6 % (11.5-15.5) 08/21/17 08:04 Plt Count 176 k/uL (150-450) 08/21/17 08:04 Neutrophils % 85 % 08/21/17 08:04 Neutrophils % (Manual) 59 % 08/19/17 09:00 Band Neutrophils % 1 % 08/19/17 09:00 Lymphocytes % 12 % 08/21/17 08:04 Lymphocytes % (Manual) 32 % 08/19/17 09:00 Monocytes % 2 % 08/21/17 08:04 Monocytes % (Manual) 8 % 08/19/17 09:00 Eosinophils % 0 % 08/21/17 08:04 Basophils % 0 % 08/21/17 08:04 Neutrophils # 5.6 k/uL (1.3-7.7) 08/21/17 08:04 Neutrophils # (Manual) 1.80 k/uL (1.3-7.7) 08/19/17 09:00 Lymphocytes # 0.8 k/uL (1.0-4.8) L 08/21/17 08:04 Lymphocytes # (Manual) 0.99 k/uL (1.0-4.8) L 08/19/17 09:00 Monocytes # 0.2 k/uL (0-1.0) 08/21/17 08:04 Monocytes # (Manual) 0.25 k/uL (0-1.0) 08/19/17 09:00 Eosinophils # 0.0 k/uL (0-0.7) 08/21/17 08:04 Basophils # 0.0 k/uL (0-0.2) 08/21/17 08:04 Nucleated RBCs 0 /100 WBC (0-0) 08/19/17 09:00 Anisocytosis (manual) Present 08/19/17 09:00 ESR Cancelled 08/19/17 09:00 PT 9.9 sec (9.0-12.0) 08/19/17 09:00 INR 1.0 (<1.2) 08/19/17 09:00 APTT 20.5 sec (22.0-30.0) L 08/19/17 09:00 Sodium 143 mmol/L (137-145) 08/21/17 08:04 Potassium 5.3 mmol/L (3.5-5.1) H 08/21/17 08:04 Chloride 106 mmol/L (98-107) 08/21/17 08:04 Carbon Dioxide 28 mmol/L (22-30) 08/21/17 08:04 Anion Gap 9 mmol/L 08/21/17 08:04 BUN 22 mg/dL (7-17) H 08/21/17 08:04 Creatinine 0.87 mg/dL (0.52-1.04) 08/21/17 08:04 Est GFR (MDRD) Af Amer >60 (>60 ml/min/1.73 sqM) 08/21/17 08:04 Est GFR (MDRD) Non-Af >60 (>60 ml/min/1.73 sqM) 08/21/17 08:04 Glucose 147 mg/dL (74-99) H 08/21/17 08:04 POC Glucose (mg/dL) 237 mg/dL (75-99) H 08/21/17 20:19 POC Glu Nurse Liaison ID Delvin Vyas 08/21/17 20:[address] Glu mg/dL 186 08/19/17 09:00 Hemoglobin A1c 8.1 % (4.0-6.0) H 08/19/17 09:00 Plasma Lactic Acid Bereket 1.6 mmol/L (0.7-2.0) 08/19/17 09:00 Uric Acid 4.6 mg/dL (3.7-7.4) 08/19/17 09:00 Calcium 9.6 mg/dL (8.4-10.2) 08/21/17 08:04 Total Bilirubin 0.7 mg/dL (0.2-1.3) 08/19/17 09:00 AST 24 U/L (14-36) 08/19/17 09:00 ALT 49 U/L (9-52) 08/19/17 09:00 Alkaline Phosphatase 98 U/L (38-126) 08/19/17 09:00 C-Reactive Protein 20.9 mg/L (<10.0) H 08/19/17 09:00 Total Protein 7.7 g/dL (6.3-8.2) 08/19/17 09:00 Albumin 4.4 g/dL (3.5-5.0) 08/19/17 09:00 Vancomycin Trough 11.3 ug/mL 08/21/17 11:47 Influenza Type A RNA Not Detected (Not Detectd) 08/19/17 09:00 Influenza Type B (PCR) Detected (Not Detectd) H 08/19/17 09:00 Microbiology 08/20/17 16:00 Urine,Clean Catch Urine Culture - Final 08/19/17 09:00 Blood Blood Culture - Preliminary No Growth after 48 hours Assessment and Plan (1) Influenza B Current Visit: Yes Status: Acute Code(s): J10.1 - FLU DUE TO OTH IDENT INFLUENZA VIRUS W OTH RESP MANIFEST SNOMED Code(s): 61156719 (2) Asthma exacerbation Current Visit: Yes Status: Acute Code(s): J45.901 - UNSPECIFIED ASTHMA WITH (ACUTE) EXACERBATION SNOMED Code(s): 910765479 (3) Left leg cellulitis Narrative/Plan: 52-year-old female presents to Hospital with difficulties with pain swelling and discomfort to her left foot so she was starting to interfere with her ability to walk. She also is having difficulties with some increasing shortness of breath and wheezing. She is a known history of asthma. At the time of presentation emergency center there was no evidence of any uzma pneumonia however influenza B test was positive and she's been initiated a Tamiflu therapy and the full course should be continued. X-rays are performed without evidence of uzma pneumonia. Will not need further intravenous antibiotic therapy for pneumonia. The patient however does have the significant cellulitis of the left lower extremity especially on the foot dorsum and lower part of the leg. It is warm erythematous and tender. A Silvadene wrap has been prescribed and should be done twice per day, covered with some rolled gauze and Fausto wrap. Elevation of her limb while at rest will also be quite helpful. Pain control seems to be adequate. As far as antibiotic therapy vancomycin as monotherapy is all that is needed at this point in time until we have some further data. The fever present admission is now improving and she is having some slight improvement. Adequate protein intake and a multivitamin her helpful for her wound healing. Cellulitis will be monitored. Current Visit: Yes Status: Acute Code(s): L03.116 - CELLULITIS OF LEFT LOWER LIMB SNOMED Code(s): 653862412 (4) Obesity, Class III, BMI 40-49.9 (morbid obesity) Current Visit: Yes Status: Acute Code(s): E66.01 - MORBID (SEVERE) OBESITY DUE TO EXCESS CALORIES SNOMED Code(s): 004884488
[2017-08-21 23:01] LABS: Glucose,Whole Blood 303 mg/dL (75-99)
[2017-08-22] MEDS: INSULIN REGULAR 100 UNIT in SODIUM CHLORIDE 0.9% 100 ML IV SCH ×2 (01:30→22:48)
[2017-08-22 01:33] LABS: Glucose,Whole Blood 220 mg/dL (75-99)
[2017-08-22 03:40] LABS: Glucose,Whole Blood 197 mg/dL (75-99)
[2017-08-22] MEDS: IPRATROPIUM-ALBUTEROL 3 ML NEB INHALATION SCH ×5 (04:23→20:25)
[2017-08-22] MEDS: VANCOMYCIN 2,000 MG in SODIUM CHLORIDE 0.9% 500 ML IVPB SCH ×2 (05:28→20:23)
[2017-08-22] MEDS: methylPREDNISolone SOD SUCCI 125 MG/2 ML VIAL IV SCH (06:12)
[2017-08-22] MEDS: KETOROLAC 30 MG/ML 1 ML VIAL IVP SCH ×3 (06:12→17:31)
[2017-08-22] MEDS: LEVOTHYROXINE 125 MCG TAB PO SCH (06:14)
[2017-08-22 06:40] LABS: Glucose,Whole Blood 131 mg/dL (75-99)
[2017-08-22] MEDS: INSULIN ASPART 100 UNIT/ML 1 ML 10 ML VIAL SQ SCH ×3 (07:32→17:31)
[2017-08-22] MEDS: ASPIRIN 81 MG PO SCH (07:33)
[2017-08-22] MEDS: guaiFENesin 600 MG TABLET.ER PO SCH ×2 (07:33→20:23)
[2017-08-22] MEDS: ATORVASTATIN 20 MG TAB PO SCH (07:33)
[2017-08-22] MEDS: OSELTAMIVIR 75 MG CAP PO SCH ×2 (07:33→20:23)
[2017-08-22] MEDS: HEPARIN SODIUM,PORCINE 5,000 UNIT/ML 1 ML VIAL SQ SCH ×2 (07:33→20:23)
[2017-08-22] MEDS: PANTOPRAZOLE 40 MG TABLET PO SCH ×2 (07:33→17:31)
[2017-08-22] MEDS: GABAPENTIN 300 MG CAP PO SCH ×3 (07:33→22:46)
[2017-08-22] MEDS: FUROSEMIDE 20 MG TAB PO SCH ×2 (07:34→15:08)
[2017-08-22] MEDS: ESCITALOPRAM 20 MG TAB PO SCH (07:34)
[2017-08-22] MEDS: FLUTICASONE 50MCG/SPRAY NASAL 16GM EA NOSTRIL SCH (07:34)
[2017-08-22 07:51] LABS: Glucose,Whole Blood 166 mg/dL (75-99)
[2017-08-22 08:00] LABS: Basophils % (A) 0 %; Eosinophils % (A) 0 %; HCT 32.3 % (34.0-46.0); HGB 10.4 gm/dL (11.4-16.0); Lymphocytes # (A) 0.6 k/uL (1.0-4.8); Lymphocytes % (A) 11 %; MCH 28.7 pg (25.0-35.0); MCHC 32.3 g/dL (31.0-37.0); Mean Platelet Volume 7.6; Monocytes # (A) 0.2 k/uL (0-1.0); Monocytes % (A) 4 %; Neutrophils # (A) 4.5 k/uL (1.3-7.7); Neutrophils % (A) 83 %; Platelet Count 156 k/uL (150-450); RBC 3.64 m/uL (3.80-5.40); RDW 14.9 % (11.5-15.5); WBC 5.5 k/uL (3.8-10.6)
[2017-08-22] MEDS: METOPROLOL SUCCINATE (ER) 50 MG TAB.ER.24H PO SCH ×2 (08:16→20:23)
[2017-08-22] MEDS: BUDESONIDE 1 MG/2 ML NEBU INHALATION SCH ×2 (08:16→20:26)
[2017-08-22] MEDS: FORMOTEROL FUMARATE 20 MCG/2 ML NEBU INHALATION SCH ×2 (08:16→20:26)
[2017-08-22 08:40] LABS: Anion Gap 10 mmol/L; Blood Urea Nitrogen 26 mg/dL (7-17); Calcium 8.6 mg/dL (8.4-10.2); Carbon Dioxide 23 mmol/L (22-30); Chloride 109 mmol/L (98-107); Glucose 152 mg/dL (74-99); Potassium 4.5 mmol/L (3.5-5.1); Sodium 142 mmol/L (137-145)
[2017-08-22 10:02] LABS: Glucose,Whole Blood 309 mg/dL (75-99)
--- NOTE | 2017-08-22 10:56 | P.PN ---
Subjective Progress Note Date: 08/22/17 Principal diagnosis: COPD exacerbation complicated by purulent tracheobronchitis Consult dated 08/20/2017 This is a 52-year-old female who presented to the emergency department with multiple complaints. One of her issues with left foot pain and swelling. We are consulted primarily because of shortness of breath. The shortness of breath and the going on for at least a week or so. She's had that chest tightness wheezing coughing. Coughing up some phlegm. Apparently I saw her recently and at that time she was treated for a COPD exacerbation with steroids antibiotics and inhalers. She improved initially but apparently got worse again. The patient states that she did not have a fever. There is no nausea vomiting or diarrhea. No chest pain or chest discomfort. She did have some chest tightness. She had a chest x-ray which did not show anything acutely. She also had a Doppler of the left lower shimmy which was negative for DVT. The patient's feeling a bit better today. She was evaluated in the emergency room yesterday. Her primary care physician is Dr. Soto. Her past medical history includes hyperlipidemia insomnia COPD hypothyroidism obesity hypertension GERD. On 08/13/2017 patient is seen in follow-up. Still remains quite wheezy, unable to clear any secretions. Patient is currently on combination of Tamiflu, Rocephin, Zithromax, and vancomycin was added by ID service for the left lower leg cellulitis. Patient is on room air, with O2 sat at 92%. She remains afebrile. Urine and blood cultures are pending. Continue with current plan of care, not ready for discharge home today. On 08/22/2017 patient seen in follow-up. Denies to improve, improving in terms of dyspnea. Lung sounds reveal good air entry bilaterally, with some scattered wheezing bilaterally. Overall reports feeling better. She was seen by ID service last night, who discontinued Rocephin and Zithromax, patient is currently completing her course of Tamiflu, and vancomycin for the left lower extremity cellulitis. She continues on nebulized treatments. Remains stable from pulmonary standpoint, we will decrease her IV steroids, he could be considered for discharge home in the next 24 hours pending clearance from ID service. Objective - Vital Signs Vital signs: Vital Signs Temp 97.7 F 08/22/17 07:00 Pulse 92 08/22/17 08:46 Resp 18 08/22/17 08:00 BP 102/57 08/22/17 07:00 Pulse Ox 95 08/22/17 07:00 Intake & Output 08/21/17 08/22/17 08/22/17 18:59 06:59 18:59 Intake Total 490.689 6747.967 7.209 Output Total 1 Balance 411.893 1109.967 7.209 Intake: IV 500 500 Vancomycin 2,000 mg In 500 500 Sodium Chloride 0.9% 500 ml @ 167 mls/hr IVPB Q16H [facility] Rx#:[id number] Intake, IV Titration 47.734 89.967 7.209 Amount Insulin Regular 100 unit 47.734 89.967 7.209 In Sodium Chloride 0.9% 100 ml @ Titrate IV .Q0M [facility] Rx#:[id number] Oral 700 Output: Urine 1 Other: Voiding Method Toilet # Voids 1 - Exam No acute distress, oriented 3. HEENT examination is grossly unremarkable. Mucous membranes are moist. No oral lesions. Neck supple. Full range of motion. No adenopathy thyromegaly or neck vein distention. Cardiovascular examination reveals regular rhythm rate. S1-S2 normal. No S3 or S4. No discernible murmur noted. Lungs reveal diffuse inspiratory and expiratory wheezes and rhonchi. Breath sounds reveal better air entry bilaterally. There is prolongation on forced maneuver. Abdomen soft bowel sounds are heard. No masses or tenderness. Extremities some edema and erythema of the left lower extremity. There is some pitting. The some chronic venous stasis changes. Skin is without rash or lesion. Neurologic examination is brief but nonfocal. - Labs CBC & Chem 7: 08/22/17 07:21 08/22/17 07:21 Labs: Abnormal Lab Results - Last 24 Hours (Table) 08/21/17 08/21/17 08/21/17 Range/Units 12:01 13:08 14:12 RBC (3.80-5.40) m/uL Hgb (11.4-16.0) gm/dL Hct (34.0-46.0) % Lymphocytes # (1.0-4.8) k/uL Chloride (98-107) mmol/L BUN (7-17) mg/dL Glucose (74-99) mg/dL POC Glucose (mg/dL) 114 H 122 H 276 H (75-99) mg/dL 08/21/17 08/21/17 08/21/17 Range/Units 16:10 17:37 20:19 RBC (3.80-5.40) m/uL Hgb (11.4-16.0) gm/dL Hct (34.0-46.0) % Lymphocytes # (1.0-4.8) k/uL Chloride (98-107) mmol/L BUN (7-17) mg/dL Glucose (74-99) mg/dL POC Glucose (mg/dL) 187 H 171 H 237 H (75-99) mg/dL 08/21/17 08/22/17 08/22/17 Range/Units 22:52 01:29 03:37 RBC (3.80-5.40) m/uL Hgb (11.4-16.0) gm/dL Hct (34.0-46.0) % Lymphocytes # (1.0-4.8) k/uL Chloride (98-107) mmol/L BUN (7-17) mg/dL Glucose (74-99) mg/dL POC Glucose (mg/dL) 303 H 220 H 197 H (75-99) mg/dL 08/22/17 08/22/17 08/22/17 Range/Units 06:33 07:21 07:21 RBC 3.64 L (3.80-5.40) m/uL Hgb 10.4 L (11.4-16.0) gm/dL Hct 32.3 L (34.0-46.0) % Lymphocytes # 0.6 L (1.0-4.8) k/uL Chloride 109 H (98-107) mmol/L BUN 26 H (7-17) mg/dL Glucose 152 H (74-99) mg/dL POC Glucose (mg/dL) 131 H (75-99) mg/dL 08/22/17 08/22/17 Range/Units 07:49 09:58 RBC (3.80-5.40) m/uL Hgb (11.4-16.0) gm/dL Hct (34.0-46.0) % Lymphocytes # (1.0-4.8) k/uL Chloride (98-107) mmol/L BUN (7-17) mg/dL Glucose (74-99) mg/dL POC Glucose (mg/dL) 166 H 309 H (75-99) mg/dL Microbiology - Last 24 Hours (Table) 08/20/17 16:00 Urine Culture - Final Urine,Clean Catch 08/19/17 09:00 Blood Culture - Preliminary Blood No Growth after 48 hours Assessment and Plan Plan: Assessment: #1 COPD exacerbation complicated by purulent tracheobronchitis. #2 History of hypertension #3 History of hypothyroidism #4 History of insomnia #5 Gastroesophageal reflux disease #6 Hyperlipidemia #7 Left leg swelling and cellulitis, without evidence of deep venous thrombosis Obesity Plan: Plan dated 08/20/2017 Medications labs x-rays and Doppler of the lower extremities are reviewed. There is no evidence of DVT. There is cellulitis and swelling of the left lower extremity. In addition, she has a COPD exacerbation. She should be treated with short acting beta agonist, short acting muscarinic antagonist, inhaled corticosteroids, long-acting beta agonist, systemic corticosteroids, and antibiotics. X-rays reviewed. Nothing acute seen. Additional recommendations and suggestions are forthcoming. Prognosis is guarded. On 08/21/2017 patient still remains wheezing, and dyspneic with any exertion. We will continue with current plan of care, IV steroids, Tamiflu, Rocephin, Zithromax, and vancomycin. Not ready for discharge yet. We'll add Mucinex. On 08/22/2017 she and is doing better, improving. Continue with current course of treatment, continue Tamiflu and vancomycin. Rocephin and Zithromax were discontinued per ID service. We will decrease the IV Solu-Medrol 40 mg every 8 hours. Continue nebulized treatments. Anticipate discharge in next 24 hours pending clearance from ID service and recommendations for antibiotics for the left lower leg cellulitis. I performed a history & physical examination of the patient and discussed their management with my nurse practitioner, Flori Colunga. I reviewed the nurse practitioner's note and agree with the documented findings and plan of care. Lung sounds are positive for diffuse wheezes. The findings and the impression was discussed with the patient. I attest to the documentation by the nurse practitioner. Time with Patient: Less than 30
[2017-08-22 11:57] LABS: Glucose,Whole Blood 219 mg/dL (75-99)
[2017-08-22] MEDS: MULTIVITAMINS, THERA 1 EACH TAB PO SCH (12:33)
[2017-08-22] MEDS: FERROUS SULFATE 325 MG TAB PO SCH (12:33)
[2017-08-22 14:36] LABS: Glucose,Whole Blood 143 mg/dL (75-99)
[2017-08-22] MEDS: methylPREDNISolone SOD SUCCI 40 MG/ML 1 ML VIAL IV SCH (15:08)
--- NOTE | 2017-08-22 15:44 | CDI ---
Last Revision, May 2017 Documentation Clarification Form Date: 08/22/2017 3:24:00 PM From: Melanie Lyons RN, CCDS Admit Date: 08/19/2017 11:48:00 AM Patient Name: Kati Brunner Visit Number: [id number] Discharge Date: ATTENTION: The Clinical Documentation Specialists (CDI) and [facility] Coding Staff appreciate your assistance in clarifying documentation. Please respond to the clarification below the line at the bottom and electronically sign. The CDI & [facility] Coding staff will review the response and follow-up if needed. Please note: Queries are made part of the Legal Health Record. If you have any questions, please contact the author of this message via ITS. Dr. Naveen Sharma Asthma Exacerbation is documented in your H/P and ongoing progress notes. Patient history/risk factors: Bronchial Asthma, Hypertension, Clinical Indicators: Present complaining of shortness of breath and cough. Positive influenza B. Respiratory system: Breath sounds diminished at the based. A few scattered rhonchi and crackles. Expiratory wheezing present. Radiology: No acute cardiopulmonary process. Vital Signs: 130/73 93 16 97.1 93 % RA 08/21 Pulmonary Consult (Dr. Hollingsworth): COPD exacerbation complicated by purulent tracheobronchitis. Treatment: Duoneb's Inhalation, Pulmicort Inhalation Solu-Medrol IV In your professional opinion, can you please further specify the Asthma exacerbation if known? With: Acute Exacerbation Status asthmaticus Acute lower respiratory infection COPD (specify with or without exacerbation) Chronic obstructive bronchitis Other, please specify ___ Unable to determine Severity: Mild intermediate Acute ExacerbationUnable to determine Mild persistent Moderate persistent Severe persistent Other, please specify ____ Unable to determine Form or Type: Cough variant Childhood Exercise induced bronchospasm Extrinsic allergic Idiosyncratic Intrinsic nonallergic Late-onset Mixed Other, please specify____ Unable to determine Please continue to document in your progress notes and discharge summary in order to capture severity of illness and risk of mortality. Include clinical findings that support your diagnosis. Mild intermediate Acute Exacerbation Unable to determine MTDD
[2017-08-22 16:06] LABS: Glucose,Whole Blood 115 mg/dL (75-99)
[2017-08-22 17:26] LABS: Glucose,Whole Blood 129 mg/dL (75-99)
[2017-08-22] MEDS: ACETAMINOPHEN TAB 325 MG TAB PO PRN (17:35)
--- NOTE | 2017-08-22 17:37 | P.PN ---
Subjective Progress Note Date: 08/21/17 Progress note being dictated for Dr. Sharma. Interval history: This is a 52-year-old female admitted with acute exacerbation of asthma, acute influenza B, cellulitis and multiple other medical issues. Maintained on nebulized bronchodilators, antibiotics, antivirals. Wheezing persists. Afebrile. Infectious disease consult in place with recommendations pending regarding antibiotics, left leg cellulitis. Denies chest pain, palpitations. Active Medications Acetaminophen (Tylenol Tab) 650 mg PO Q6HR PRN PRN Reason: Mild Pain or Fever > 100.5 Last Admin: 08/20/17 20:26 Dose: 650 mg Hydrocodone Bitart/Acetaminophen ([place] 5-325) 1 each PO Q4HR PRN PRN Reason: Moderate Pain Albuterol/Ipratropium (Duoneb 0.5 Mg-3 Mg/3 Ml Soln) 3 ml INHALATION RT-Q4H [facility] Last Admin: 08/21/17 16:02 Dose: 3 ml Alprazolam (Xanax) 0.25 mg PO TID PRN PRN Reason: Anxiety Aspirin (Aspirin) 81 mg PO DAILY [facility] Last Admin: 08/21/17 07:52 Dose: 81 mg Atorvastatin Calcium (Lipitor) 20 mg PO DAILY [facility] Last Admin: 08/21/17 07:52 Dose: 20 mg Azithromycin (Zithromax) 500 mg PO DAILY [facility] Last Admin: 08/21/17 07:53 Dose: 500 mg Budesonide (Pulmicort) 1 mg INHALATION RT-BID [facility] Last Admin: 08/21/17 09:15 Dose: 1 mg Ceftriaxone Sodium (Rocephin) 1,000 mg IVP Q24HR [facility] Last Admin: 08/21/17 07:52 Dose: 1,000 mg Escitalopram Oxalate (Lexapro) 20 mg PO QAM [facility] Last Admin: 08/21/17 07:53 Dose: 20 mg Ferrous Sulfate (Feosol) 325 mg PO 1200 [facility] Last Admin: 08/21/17 07:54 Dose: 325 mg Fluticasone Propionate (Flonase Nasal [place]) 1 spray EA NOSTRIL DAILY [facility] Last Admin: 08/21/17 07:51 Dose: 1 spray Formoterol Fumarate (Perforomist) 20 mcg INHALATION RT-BID [facility] Last Admin: 08/21/17 09:15 Dose: 20 mcg Furosemide (Lasix) 20 mg PO BID@0900,1600 [facility] Last Admin: 08/21/17 15:59 Dose: 20 mg Gabapentin (Neurontin) 300 mg PO TID [facility] Last Admin: 08/21/17 15:59 Dose: 300 mg Guaifenesin (Mucinex) 1,200 mg PO Q12HR [facility] Last Admin: 08/21/17 11:11 Dose: 1,200 mg Heparin Sodium (Porcine) (Heparin) 5,000 unit SQ Q12HR [facility] Last Admin: 08/21/17 07:51 Dose: 5,000 unit Vancomycin HCl 2,000 mg/ (Sodium Chloride) 500 mls @ 167 mls/hr IVPB Q16H [facility] Last Admin: 08/21/17 12:46 Dose: 167 mls/hr Insulin Human Regular 100 unit (/ Sodium Chloride) 101 mls @ 0 mls/hr IV .Q0M [facility]; Titrate PRN Reason: Protocol Last Titration: 08/21/17 16:20 Dose: 5 mls/hr, 5 mls/hr Ibuprofen (Motrin) 600 mg PO Q8HR PRN PRN Reason: Pain Insulin Aspart (Novolog) 18 unit 0.13 unit/kg (18 unit) SQ AC-TID [facility] Last Admin: 08/21/17 12:15 Dose: Not Given Ketorolac Tromethamine (Toradol) 15 mg IVP Q6HR [facility] Stop: 08/23/17 15:26 Last Admin: 08/21/17 17:26 Dose: 15 mg Levothyroxine Sodium (Synthroid) 125 mcg PO 0630 [facility] Last Admin: 08/21/17 06:11 Dose: 125 mcg Loratadine (Claritin) 10 mg PO DAILY [facility] Last Admin: 08/21/17 07:53 Dose: 10 mg Methylprednisolone Sodium Succinate (Solu-Medrol) 60 mg IV Q6HR [facility] Last Admin: 08/21/17 17:29 Dose: 60 mg Metoprolol Succinate (Toprol Xl) 50 mg PO BID [facility] Last Admin: 08/21/17 07:52 Dose: 50 mg Morphine Sulfate (Morphine Oral [place] 2mg/Ml) 12 mg PO Q4HR PRN PRN Reason: Severe Pain Naloxone HCl (Narcan) 0.2 mg IV Q2M PRN PRN Reason: Opioid Reversal Nystatin (Mycostatin Powder) 1 applic TOPICAL BID PRN PRN Reason: Rash Ondansetron HCl (Zofran) 4 mg IVP Q8HR PRN PRN Reason: Nausea And Vomiting Oseltamivir Phosphate (Tamiflu) 75 mg PO BID [facility] Stop: 08/23/17 23:00 Last Admin: 08/21/17 07:52 Dose: 75 mg Pantoprazole Sodium (Protonix) 40 mg PO AC-BID [facility] Last Admin: 08/21/17 15:59 Dose: 40 mg Potassium Chloride (K-Dur 20) 20 meq PO BID [facility] Last Admin: 08/21/17 07:52 Dose: 20 meq Zolpidem Tartrate (Ambien) 10 mg PO HS [facility] Last Admin: 08/20/17 20:25 Dose: 10 mg Objective - Vital Signs Vital signs: Vital Signs Temp 97.7 F 08/21/17 15:00 Pulse 76 08/21/17 16:16 Resp 16 08/21/17 15:00 BP 130/72 08/21/17 15:00 Pulse Ox 95 08/21/17 15:00 Intake & Output 08/20/17 08/21/17 08/21/17 18:59 06:59 18:59 Intake Total 595.100 84.983 540.984 Balance 595.100 84.983 540.984 Intake: IV 500 Vancomycin 2,000 mg In 500 Sodium Chloride 0.9% 500 ml @ 167 mls/hr IVPB Q16H [facility] Rx#:[id number] Intake, IV Titration 595.100 84.983 40.984 Amount Insulin Regular 100 unit 95.100 84.983 40.984 In Sodium Chloride 0.9% 100 ml @ Titrate IV .Q0M [facility] Rx#:[id number] Vancomycin 2,000 mg In 500 Sodium Chloride 0.9% 500 ml @ 167 mls/hr IVPB Q16H [facility] Rx#:[id number] Other: Voiding Method Toilet # Voids 1 1 # Bowel Movements 1 - Exam PHYSICAL EXAM: VITAL SIGNS: As above GENERAL: Sitting up in bed, no acute distress HEENT: Conjunctivae normal. eyes normal. Oral mucosa moist NECK: No JVD. No thyroid enlargement. No LNs CARDIOVASCULAR: S1, S2 muffled. No murmur RESPIRATION: Breath sounds diminished in the bases. Bilateral scattered rhonchi and crackles. ABDOMEN: Soft, nontender . No guarding. no masses palpable. Bowel sounds heard. LEGS: Chronic venous stasis, left assembly machine tender with edema, redness, warmth PSYCHIATRY: Alert and oriented -3, mood and affect normal. NERVOUS SYSTEM: Cranial N 2-12 grossly normal. Moves all 4 limbs. Diffuse weakness No focal deficits. Joints: No active swelling. No inflammation. Lymphatic system. No LN neck axilla or groin. Microbiology 08/20/17 16:00 Urine,Clean Catch Urine Culture - Final 08/19/17 09:00 Blood Blood Culture - Preliminary No Growth after 48 hours - Labs CBC & Chem 7: 08/22/17 07:21 08/22/17 07:21 Labs: Abnormal Lab Results - Last 24 Hours (Table) 08/20/17 08/20/17 08/20/17 Range/Units 18:02 20:02 22:06 Hgb (11.4-16.0) gm/dL Lymphocytes # (1.0-4.8) k/uL Potassium (3.5-5.1) mmol/L BUN (7-17) mg/dL Glucose (74-99) mg/dL POC Glucose (mg/dL) 198 H 325 H 260 H (75-99) mg/dL 08/21/17 08/21/17 08/21/17 Range/Units 00:02 02:08 05:11 Hgb (11.4-16.0) gm/dL Lymphocytes # (1.0-4.8) k/uL Potassium (3.5-5.1) mmol/L BUN (7-17) mg/dL Glucose (74-99) mg/dL POC Glucose (mg/dL) 201 H 174 H 162 H (75-99) mg/dL 08/21/17 08/21/17 08/21/17 Range/Units 06:01 07:28 08:04 Hgb (11.4-16.0) gm/dL Lymphocytes # (1.0-4.8) k/uL Potassium 5.3 H (3.5-5.1) mmol/L BUN 22 H (7-17) mg/dL Glucose 147 H (74-99) mg/dL POC Glucose (mg/dL) 239 H 160 H (75-99) mg/dL 08/21/17 08/21/17 08/21/17 Range/Units 08:04 10:05 12:01 Hgb 11.3 L (11.4-16.0) gm/dL Lymphocytes # 0.8 L (1.0-4.8) k/uL Potassium (3.5-5.1) mmol/L BUN (7-17) mg/dL Glucose (74-99) mg/dL POC Glucose (mg/dL) 211 H 114 H (75-99) mg/dL 08/21/17 08/21/17 08/21/17 Range/Units 13:08 14:12 16:10 Hgb (11.4-16.0) gm/dL Lymphocytes # (1.0-4.8) k/uL Potassium (3.5-5.1) mmol/L BUN (7-17) mg/dL Glucose (74-99) mg/dL POC Glucose (mg/dL) 122 H 276 H 187 H (75-99) mg/dL Microbiology - Last 24 Hours (Table) 08/20/17 16:00 Urine Culture - Final Urine,Clean Catch 08/19/17 09:00 Blood Culture - Preliminary Blood No Growth after 48 hours Assessment and Plan Assessment: 1. Acute asthma exacerbation with acute purulent tracheobronchitis 2. Acute influenza B 3. Diabetes possibly new onset, uncontrolled 4. Acute cellulitis of the left foot 5. Leukopenia 6. Gastroesophageal reflux disease 7. Chronic back pain with recent epidural injection 8. Obesity, BMI 55 Plan: Continue current medication regime ,monitoring and symptomatic treatment. Maintain nebulized bronchodilators, steroids. Antibiotics, wound care as per infectious disease. Symptomatic treatment. The impression and plan of care has been dictated as directed. : I performed a history and examination of this patient, discussed the same with the dictator. I agree with the dictator's note ,documented as a scribe. Any additional findings or plans will be noted.
[2017-08-22 20:02] LABS: Glucose,Whole Blood 273 mg/dL (75-99)
[2017-08-22] MEDS: ZOLPIDEM 10 MG TAB PO SCH (20:23)
[2017-08-22] MEDS ORDERED: IPRATROPIUM-ALBUTEROL 3 ML NEB INHALATION PRN (20:37)
[2017-08-22] MEDS ORDERED: BENZOCAINE/MENTHOL LOZENG 1 EACH LOZENGE MUCOUS MEM PRN (20:40)
[2017-08-22 21:20] LABS: Glucose,Whole Blood 251 mg/dL (75-99)
[2017-08-22 22:10] LABS: Glucose,Whole Blood 212 mg/dL (75-99)
--- NOTE | 2017-08-22 23:35 | P.PN ---
Subjective Progress Note Date: 08/22/17 Principal diagnosis: flu b 52-year-old female presents to Hospital from home because she was not feeling well with fever and having difficulties with several days of increasing pain and swelling and erythema to her left foot. She is a known history of asthma and she thought this was worsening where she was having increasing wheezing and shortness of breath. With these symptoms she presented to the emergency center was on evidence of influenza B as well as a cellulitis to her left foot when she was admitted to hospital. She's been seen by her screen printing inspector and infectious diseases consultation was requested regarding her cellulitis to her left foot. The patient relates the foot remains somewhat uncomfortable. It significantly bothers her especially when is in the dependent position. She however feels more short of breath with her legs are elevated. Is not she felt she was having a fever but is denying chills or rigors. The patient does have severe obesity and does have difficulties with some lower extremity edema but current problem is more unilateral to the left foot and is quite uncomfortable. Patient has had x-ray of the foot without evidence of fracture or foreign body. In a duplex of the left lower extremity failed to reveal evidence of a deep venous thrombosis. The patient denies any trauma before the onset of this difficulty. She also does not have any long trips or changes in her activity 08/22/2017 reveals the patient to be feeling somewhat better. She is less short of breath. However setting some cough. She apparently had difficulty swallowing early in the day and developed a bit of a sore throat from her frequent cough. Will offer some Cepacol for discomfort. Lower extremities feeling better also Objective - Vital Signs Vital signs: Vital Signs Temp 98.1 F 08/22/17 15:00 Pulse 78 08/22/17 20:42 Resp 18 08/22/17 15:10 BP 132/73 08/22/17 15:00 Pulse Ox 95 08/22/17 15:00 Intake & Output 08/22/17 08/22/17 08/23/17 06:59 18:59 06:59 Intake Total 1289.967 48.634 24.349 Output Total 1 Balance 1288.967 48.634 24.349 Intake: IV 500 Vancomycin 2,000 mg In 500 Sodium Chloride 0.9% 500 ml @ 167 mls/hr IVPB Q16H COUNT INCLUDES THE [facility] Rx#:[id number] Intake, IV Titration 89.967 48.634 24.349 Amount Insulin Regular 100 unit 89.967 48.634 24.349 In Sodium Chloride 0.9% 100 ml @ Titrate IV .Q0M [facility] Rx#:[id number] Oral 700 Output: Urine 1 Other: Voiding Method Toilet # Voids 1 2 - Exam 52-year-old woman who has superobesity is comfortable at this point in time and if she is not profound short of breath but is still having some wheezing. Is complaining of some discomfort to her left foot and leg. HEENT: Anicteric conjunctiva are pink and moist nasal mucosa grossly intact without significant lesions, there is no thrush. Neck: The neck is supple without significant lymphadenopathy or thyromegaly. Lungs: There is symmetrical air entry with expiratory wheezes throughout the lung reyna there is a somewhat protracted expiratory phase. She does not have uzma bronchial sounds there is no dullness or egophony Heart: Regular rate and rhythm with an audible S1-S2, no S3 no S4. There is no significant murmur click or rub, PMI was nondisplaced. Abdomen: Obese Positive bowel sounds soft and nontender without palpable masses or organomegaly. There was no guarding or rebound. Extremities: The upper extremities have excellent pulses they are symmetric, no significant petechiae or telangiectasia. No splinter hemorrhages were noted. Extremities have evidence of the chronic venous stasis changes and some chronic lymphedema. The left foot however as the changes of significant swelling compared to the right. There is warmth and erythema and tenderness of the dorsum of the foot to the toes themselves. There is no evidence of any open ulcerations at this time. The skin is somewhat dry. Neuro: Awake alert oriented to person place and time. There are no acute new gross focal sensory motor deficits. - Labs CBC & Chem 7: 08/22/17 07:21 08/22/17 07:21 Labs: Abnormal Lab Results - Last 24 Hours (Table) 08/22/17 08/22/17 08/22/17 Range/Units 01:29 03:37 06:33 RBC (3.80-5.40) m/uL Hgb (11.4-16.0) gm/dL Hct (34.0-46.0) % Lymphocytes # (1.0-4.8) k/uL Chloride (98-107) mmol/L BUN (7-17) mg/dL Glucose (74-99) mg/dL POC Glucose (mg/dL) 220 H 197 H 131 H (75-99) mg/dL 08/22/17 08/22/17 08/22/17 Range/Units 07:21 07:21 07:49 RBC 3.64 L (3.80-5.40) m/uL Hgb 10.4 L (11.4-16.0) gm/dL Hct 32.3 L (34.0-46.0) % Lymphocytes # 0.6 L (1.0-4.8) k/uL Chloride 109 H (98-107) mmol/L BUN 26 H (7-17) mg/dL Glucose 152 H (74-99) mg/dL POC Glucose (mg/dL) 166 H (75-99) mg/dL 08/22/17 08/22/17 08/22/17 Range/Units 09:58 11:51 14:34 RBC (3.80-5.40) m/uL Hgb (11.4-16.0) gm/dL Hct (34.0-46.0) % Lymphocytes # (1.0-4.8) k/uL Chloride (98-107) mmol/L BUN (7-17) mg/dL Glucose (74-99) mg/dL POC Glucose (mg/dL) 309 H 219 H 143 H (75-99) mg/dL 08/22/17 08/22/17 08/22/17 Range/Units 16:03 17:24 19:58 RBC (3.80-5.40) m/uL Hgb (11.4-16.0) gm/dL Hct (34.0-46.0) % Lymphocytes # (1.0-4.8) k/uL Chloride (98-107) mmol/L BUN (7-17) mg/dL Glucose (74-99) mg/dL POC Glucose (mg/dL) 115 H 129 H 273 H (75-99) mg/dL 08/22/17 08/22/17 Range/Units 21:17 22:07 RBC (3.80-5.40) m/uL Hgb (11.4-16.0) gm/dL Hct (34.0-46.0) % Lymphocytes # (1.0-4.8) k/uL Chloride (98-107) mmol/L BUN (7-17) mg/dL Glucose (74-99) mg/dL POC Glucose (mg/dL) 251 H 212 H (75-99) mg/dL Microbiology - Last 24 Hours (Table) 08/19/17 09:00 Blood Culture - Preliminary Blood No Growth after 72 hours Laboratory Results WBC 5.5 k/uL (3.8-10.6) 08/22/17 07:21 RBC 3.64 m/uL (3.80-5.40) L 08/22/17 07:21 Hgb 10.4 gm/dL (11.4-16.0) L 08/22/17 07:21 Hct 32.3 % (34.0-46.0) L 08/22/17 07:21 MCV 89.0 fL (80.0-100.0) 08/22/17 07:21 MCH 28.7 pg (25.0-35.0) 08/22/17 07:21 MCHC 32.3 g/dL (31.0-37.0) 08/22/17 07:21 RDW 14.9 % (11.5-15.5) 08/22/17 07:21 Plt Count 156 k/uL (150-450) 08/22/17 07:21 Neutrophils % 83 % 08/22/17 07:21 Neutrophils % (Manual) 59 % 08/19/17 09:00 Band Neutrophils % 1 % 08/19/17 09:00 Lymphocytes % 11 % 08/22/17 07:21 Lymphocytes % (Manual) 32 % 08/19/17 09:00 Monocytes % 4 % 08/22/17 07:21 Monocytes % (Manual) 8 % 08/19/17 09:00 Eosinophils % 0 % 08/22/17 07:21 Basophils % 0 % 08/22/17 07:21 Neutrophils # 4.5 k/uL (1.3-7.7) 08/22/17 07:21 Neutrophils # (Manual) 1.80 k/uL (1.3-7.7) 08/19/17 09:00 Lymphocytes # 0.6 k/uL (1.0-4.8) L 08/22/17 07:21 Lymphocytes # (Manual) 0.99 k/uL (1.0-4.8) L 08/19/17 09:00 Monocytes # 0.2 k/uL (0-1.0) 08/22/17 07:21 Monocytes # (Manual) 0.25 k/uL (0-1.0) 08/19/17 09:00 Eosinophils # 0.0 k/uL (0-0.7) 08/22/17 07:21 Basophils # 0.0 k/uL (0-0.2) 08/22/17 07:21 Nucleated RBCs 0 /100 WBC (0-0) 08/19/17 09:00 Anisocytosis (manual) Present 08/19/17 09:00 ESR Cancelled 08/19/17 09:00 PT 9.9 sec (9.0-12.0) 08/19/17 09:00 INR 1.0 (<1.2) 08/19/17 09:00 APTT 20.5 sec (22.0-30.0) L 08/19/17 09:00 Sodium 142 mmol/L (137-145) 08/22/17 07:21 Potassium 4.5 mmol/L (3.5-5.1) 08/22/17 07:21 Chloride 109 mmol/L (98-107) H 08/22/17 07:21 Carbon Dioxide 23 mmol/L (22-30) 08/22/17 07:21 Anion Gap 10 mmol/L 08/22/17 07:21 BUN 26 mg/dL (7-17) H 08/22/17 07:21 Creatinine 0.80 mg/dL (0.52-1.04) 08/22/17 07:21 Est GFR (MDRD) Af Amer >60 (>60 ml/min/1.73 sqM) 08/22/17 07:21 Est GFR (MDRD) Non-Af >60 (>60 ml/min/1.73 sqM) 08/22/17 07:21 Glucose 152 mg/dL (74-99) H 08/22/17 07:21 POC Glucose (mg/dL) 212 mg/dL (75-99) H 08/22/17 22:07 POC [employer] Billing Analyst Xin Moss 08/22/17 22:[address] Glu mg/dL 186 08/19/17 09:00 Hemoglobin A1c 8.1 % (4.0-6.0) H 08/19/17 09:00 Plasma Lactic Acid Bereket 1.6 mmol/L (0.7-2.0) 08/19/17 09:00 Uric Acid 4.6 mg/dL (3.7-7.4) 08/19/17 09:00 Calcium 8.6 mg/dL (8.4-10.2) 08/22/17 07:21 Total Bilirubin 0.7 mg/dL (0.2-1.3) 08/19/17 09:00 AST 24 U/L (14-36) 08/19/17 09:00 ALT 49 U/L (9-52) 08/19/17 09:00 Alkaline Phosphatase 98 U/L (38-126) 08/19/17 09:00 C-Reactive Protein 20.9 mg/L (<10.0) H 08/19/17 09:00 Total Protein 7.7 g/dL (6.3-8.2) 08/19/17 09:00 Albumin 4.4 g/dL (3.5-5.0) 08/19/17 09:00 Vancomycin Trough 11.3 ug/mL 08/21/17 11:47 Influenza Type A RNA Not Detected (Not Detectd) 08/19/17 09:00 Influenza Type B (PCR) Detected (Not Detectd) H 08/19/17 09:00 Laboratory Results WBC 5.5 k/uL (3.8-10.6) 08/22/17 07:21 RBC 3.64 m/uL (3.80-5.40) L 08/22/17 07:21 Hgb 10.4 gm/dL (11.4-16.0) L 08/22/17 07:21 Hct 32.3 % (34.0-46.0) L 08/22/17 07:21 MCV 89.0 fL (80.0-100.0) 08/22/17 07:21 MCH 28.7 pg (25.0-35.0) 08/22/17 07:21 MCHC 32.3 g/dL (31.0-37.0) 08/22/17 07:21 RDW 14.9 % (11.5-15.5) 08/22/17 07:21 Plt Count 156 k/uL (150-450) 08/22/17 07:21 Neutrophils % 83 % 08/22/17 07:21 Neutrophils % (Manual) 59 % 08/19/17 09:00 Band Neutrophils % 1 % 08/19/17 09:00 Lymphocytes % 11 % 08/22/17 07:21 Lymphocytes % (Manual) 32 % 08/19/17 09:00 Monocytes % 4 % 08/22/17 07:21 Monocytes % (Manual) 8 % 08/19/17 09:00 Eosinophils % 0 % 08/22/17 07:21 Basophils % 0 % 08/22/17 07:21 Neutrophils # 4.5 k/uL (1.3-7.7) 08/22/17 07:21 Neutrophils # (Manual) 1.80 k/uL (1.3-7.7) 08/19/17 09:00 Lymphocytes # 0.6 k/uL (1.0-4.8) L 08/22/17 07:21 Lymphocytes # (Manual) 0.99 k/uL (1.0-4.8) L 08/19/17 09:00 Monocytes # 0.2 k/uL (0-1.0) 08/22/17 07:21 Monocytes # (Manual) 0.25 k/uL (0-1.0) 08/19/17 09:00 Eosinophils # 0.0 k/uL (0-0.7) 08/22/17 07:21 Basophils # 0.0 k/uL (0-0.2) 08/22/17 07:21 Nucleated RBCs 0 /100 WBC (0-0) 08/19/17 09:00 Anisocytosis (manual) Present 08/19/17 09:00 ESR Cancelled 08/19/17 09:00 PT 9.9 sec (9.0-12.0) 08/19/17 09:00 INR 1.0 (<1.2) 08/19/17 09:00 APTT 20.5 sec (22.0-30.0) L 08/19/17 09:00 Sodium 142 mmol/L (137-145) 08/22/17 07:21 Potassium 4.5 mmol/L (3.5-5.1) 08/22/17 07:21 Chloride 109 mmol/L (98-107) H 08/22/17 07:21 Carbon Dioxide 23 mmol/L (22-30) 08/22/17 07:21 Anion Gap 10 mmol/L 08/22/17 07:21 BUN 26 mg/dL (7-17) H 08/22/17 07:21 Creatinine 0.80 mg/dL (0.52-1.04) 08/22/17 07:21 Est GFR (MDRD) Af Amer >60 (>60 ml/min/1.73 sqM) 08/22/17 07:21 Est GFR (MDRD) Non-Af >60 (>60 ml/min/1.73 sqM) 08/22/17 07:21 Glucose 152 mg/dL (74-99) H 08/22/17 07:21 POC Glucose (mg/dL) 212 mg/dL (75-99) H 08/22/17 22:07 POC [employer] Billing Analyst GARCIA Xin Hamilton 08/22/17 22:[address] Glu mg/dL 186 08/19/17 09:00 Hemoglobin A1c 8.1 % (4.0-6.0) H 08/19/17 09:00 Plasma Lactic Acid Bereket 1.6 mmol/L (0.7-2.0) 08/19/17 09:00 Uric Acid 4.6 mg/dL (3.7-7.4) 08/19/17 09:00 Calcium 8.6 mg/dL (8.4-10.2) 08/22/17 07:21 Total Bilirubin 0.7 mg/dL (0.2-1.3) 08/19/17 09:00 AST 24 U/L (14-36) 08/19/17 09:00 ALT 49 U/L (9-52) 08/19/17 09:00 Alkaline Phosphatase 98 U/L (38-126) 08/19/17 09:00 C-Reactive Protein 20.9 mg/L (<10.0) H 08/19/17 09:00 Total Protein 7.7 g/dL (6.3-8.2) 08/19/17 09:00 Albumin 4.4 g/dL (3.5-5.0) 08/19/17 09:00 Vancomycin Trough 11.3 ug/mL 08/21/17 11:47 Influenza Type A RNA Not Detected (Not Detectd) 08/19/17 09:00 Influenza Type B (PCR) Detected (Not Detectd) H 08/19/17 09:00 Microbiology 08/19/17 09:00 Blood Blood Culture - Preliminary No Growth after 72 hours 08/20/17 16:00 Urine,Clean Catch Urine Culture - Final Assessment and Plan (1) Influenza B Current Visit: Yes Status: Acute Code(s): J10.1 - FLU DUE TO OTH IDENT INFLUENZA VIRUS W OTH RESP MANIFEST SNOMED Code(s): 67670907 (2) Asthma exacerbation Current Visit: Yes Status: Acute Code(s): J45.901 - UNSPECIFIED ASTHMA WITH (ACUTE) EXACERBATION SNOMED Code(s): 915351908 (3) Left leg cellulitis Narrative/Plan: 52-year-old female presents to Hospital with difficulties with pain swelling and discomfort to her left foot so she was starting to interfere with her ability to walk. She also is having difficulties with some increasing shortness of breath and wheezing. She is a known history of asthma. At the time of presentation emergency center there was no evidence of any uzma pneumonia however influenza B test was positive and she's been initiated a Tamiflu therapy and the full course should be continued. X-rays are performed without evidence of uzma pneumonia. Will not need further intravenous antibiotic therapy for pneumonia. The patient however does have the significant cellulitis of the left lower extremity especially on the foot dorsum and lower part of the leg. It is warm erythematous and tender. A Silvadene wrap has been prescribed and should be done twice per day, covered with some rolled gauze and Fausto wrap. Elevation of her limb while at rest will also be quite helpful. Pain control seems to be adequate. As far as antibiotic therapy vancomycin as monotherapy is all that is needed at this point in time until we have some further data. The fever present admission is now improving and she is having some slight improvement. Adequate protein intake and a multivitamin her helpful for her wound healing. Cellulitis will be monitored. 08/22/2017 reveals the patient to have some improvement. Other than some significant sore throat from coughing considerably because she swallowed poorly earlier. She steadily improved. Will offer some Cepacol. Continue her course of Tamiflu to complete the full 10 dose regiment. The leg is improved and will finish up a course of cephalexin at discharge for the cellulitis of the leg that is rapidly improving. Current Visit: Yes Status: Acute Code(s): L03.116 - CELLULITIS OF LEFT LOWER LIMB SNOMED Code(s): 904501570 (4) Obesity, Class III, BMI 40-49.9 (morbid obesity) Current Visit: Yes Status: Acute Code(s): E66.01 - MORBID (SEVERE) OBESITY DUE TO EXCESS CALORIES SNOMED Code(s): 907202465
[2017-08-23 00:06] LABS: Glucose,Whole Blood 133 mg/dL (75-99)
[2017-08-23] MEDS: methylPREDNISolone SOD SUCCI 40 MG/ML 1 ML VIAL IV SCH ×3 (00:24→16:28)
[2017-08-23 02:15] LABS: Glucose,Whole Blood 113 mg/dL (75-99)
[2017-08-23 03:06] LABS: Glucose,Whole Blood 123 mg/dL (75-99)
[2017-08-23 05:31] LABS: Glucose,Whole Blood 167 mg/dL (75-99)
[2017-08-23 06:07] VITALS: RESP 16
[2017-08-23] MEDS: LEVOTHYROXINE 125 MCG TAB PO SCH (06:27)
[2017-08-23 07:13] LABS: Glucose,Whole Blood 161 mg/dL (75-99)
[2017-08-23] MEDS: KETOROLAC 30 MG/ML 1 ML VIAL IVP SCH ×3 (07:31→12:58)
[2017-08-23] MEDS: ASPIRIN 81 MG PO SCH (08:13)
[2017-08-23] MEDS: METOPROLOL SUCCINATE (ER) 50 MG TAB.ER.24H PO SCH (08:13)
[2017-08-23] MEDS: PANTOPRAZOLE 40 MG TABLET PO SCH (08:13)
[2017-08-23] MEDS: OSELTAMIVIR 75 MG CAP PO SCH (08:13)
[2017-08-23] MEDS: ESCITALOPRAM 20 MG TAB PO SCH (08:13)
[2017-08-23] MEDS: ATORVASTATIN 20 MG TAB PO SCH (08:13)
[2017-08-23] MEDS: guaiFENesin 600 MG TABLET.ER PO SCH (08:13)
[2017-08-23] MEDS: HEPARIN SODIUM,PORCINE 5,000 UNIT/ML 1 ML VIAL SQ SCH (08:13)
[2017-08-23] MEDS: GABAPENTIN 300 MG CAP PO SCH ×2 (08:13→16:30)
[2017-08-23] MEDS: LORATADINE 10 MG TAB PO SCH (08:13)
[2017-08-23] MEDS: FUROSEMIDE 20 MG TAB PO SCH ×2 (08:13→16:30)
[2017-08-23] MEDS: FLUTICASONE 50MCG/SPRAY NASAL 16GM EA NOSTRIL SCH (08:14)
[2017-08-23] MEDS: INSULIN ASPART 100 UNIT/ML 1 ML 10 ML VIAL SQ SCH ×2 (08:14→12:58)
[2017-08-23 08:56] LABS: Basophils % (A) 0 %; Eosinophils % (A) 0 %; HCT 35.1 % (34.0-46.0); HGB 11.3 gm/dL (11.4-16.0); Lymphocytes % (A) 16 %; MCHC 32.3 g/dL (31.0-37.0); MCV 89.6 fL (80.0-100.0); Mean Platelet Volume 7.2; Monocytes # (A) 0.3 k/uL (0-1.0); Monocytes % (A) 4 %; Neutrophils # (A) 5.2 k/uL (1.3-7.7); Neutrophils % (A) 79 %; Platelet Count 194 k/uL (150-450); RBC 3.92 m/uL (3.80-5.40); RDW 14.7 % (11.5-15.5); WBC 6.6 k/uL (3.8-10.6)
[2017-08-23 09:07] LABS: Glucose,Whole Blood 179 mg/dL (75-99)
[2017-08-23 09:08] LABS: Anion Gap 10 mmol/L; Blood Urea Nitrogen 24 mg/dL (7-17); Calcium 9.4 mg/dL (8.4-10.2); Carbon Dioxide 27 mmol/L (22-30); Chloride 106 mmol/L (98-107); Glucose 182 mg/dL (74-99); Potassium 4.6 mmol/L (3.5-5.1); Sodium 143 mmol/L (137-145)
[2017-08-23] MEDS: IPRATROPIUM-ALBUTEROL 3 ML NEB INHALATION SCH ×3 (10:43→15:47)
[2017-08-23 11:17] LABS: Glucose,Whole Blood 151 mg/dL (75-99)
[2017-08-23] MEDS: FORMOTEROL FUMARATE 20 MCG/2 ML NEBU INHALATION SCH (11:25)
[2017-08-23] MEDS: BUDESONIDE 1 MG/2 ML NEBU INHALATION SCH (11:25)
--- NOTE | 2017-08-23 11:58 | P.PN ---
Subjective Progress Note Date: 08/23/17 Principal diagnosis: COPD exacerbation complicated by purulent tracheobronchitis Consult dated 08/20/2017 This is a 52-year-old female who presented to the emergency department with multiple complaints. One of her issues with left foot pain and swelling. We are consulted primarily because of shortness of breath. The shortness of breath and the going on for at least a week or so. She's had that chest tightness wheezing coughing. Coughing up some phlegm. Apparently I saw her recently and at that time she was treated for a COPD exacerbation with steroids antibiotics and inhalers. She improved initially but apparently got worse again. The patient states that she did not have a fever. There is no nausea vomiting or diarrhea. No chest pain or chest discomfort. She did have some chest tightness. She had a chest x-ray which did not show anything acutely. She also had a Doppler of the left lower shimmy which was negative for DVT. The patient's feeling a bit better today. She was evaluated in the emergency room yesterday. Her primary care physician is Dr. Soto. Her past medical history includes hyperlipidemia insomnia COPD hypothyroidism obesity hypertension GERD. On 08/13/2017 patient is seen in follow-up. Still remains quite wheezy, unable to clear any secretions. Patient is currently on combination of Tamiflu, Rocephin, Zithromax, and vancomycin was added by ID service for the left lower leg cellulitis. Patient is on room air, with O2 sat at 92%. She remains afebrile. Urine and blood cultures are pending. Continue with current plan of care, not ready for discharge home today. On 08/22/2017 patient seen in follow-up. Denies to improve, improving in terms of dyspnea. Lung sounds reveal good air entry bilaterally, with some scattered wheezing bilaterally. Overall reports feeling better. She was seen by ID service last night, who discontinued Rocephin and Zithromax, patient is currently completing her course of Tamiflu, and vancomycin for the left lower extremity cellulitis. She continues on nebulized treatments. Remains stable from pulmonary standpoint, we will decrease her IV steroids, he could be considered for discharge home in the next 24 hours pending clearance from ID service. On 08/23/2017 patient seen in follow-up. Sitting up on the edge of the bed, denies any acute distress. Lung sounds are positive for some scattered wheezes. Currently on room air, with O2 sat at 93%. Vital signs are stable, patient remains afebrile, blood and urine culture showed no growth. Patient remains on Tamiflu, and vancomycin for the left lower extremity cellulitis. She is complaining of a sore throat, and mouth pain. Inspection of the oral cavity and pharynx showed white patches consistent with oral candidiasis. Nystatin swish and swallow will be ordered for the patient. Objective - Vital Signs Vital signs: Vital Signs Temp 98.1 F 08/23/17 06:07 Pulse 64 08/23/17 11:51 Resp 16 08/23/17 06:07 BP 119/87 08/23/17 06:07 Pulse Ox 93 L 08/23/17 06:07 Intake & Output 08/22/17 08/23/17 08/23/17 18:59 06:59 18:59 Intake Total 48.634 634.724 0 Balance 48.634 634.724 0 Intake: Intake, IV Titration 48.634 34.724 0 Amount Insulin Regular 100 unit 48.634 34.724 0 In Sodium Chloride 0.9% 100 ml @ Titrate IV .Q0M [facility] Rx#:[id number] Oral 600 Other: Voiding Method Toilet # Voids 2 1 - Exam No acute distress, oriented 3. HEENT examination is grossly unremarkable. Mucous membranes are moist. No oral lesions. Neck supple. Full range of motion. No adenopathy thyromegaly or neck vein distention. Cardiovascular examination reveals regular rhythm rate. S1-S2 normal. No S3 or S4. No discernible murmur noted. Lungs reveal diffuse inspiratory and expiratory wheezes and rhonchi. Breath sounds reveal better air entry bilaterally. There is prolongation on forced maneuver. Abdomen soft bowel sounds are heard. No masses or tenderness. Extremities some edema and erythema of the left lower extremity. There is some pitting. The some chronic venous stasis changes. Skin is without rash or lesion. Neurologic examination is brief but nonfocal. - Labs CBC & Chem 7: 08/23/17 08:27 08/23/17 08:27 Labs: Abnormal Lab Results - Last 24 Hours (Table) 08/22/17 08/22/17 08/22/17 Range/Units 11:51 14:34 16:03 Hgb (11.4-16.0) gm/dL BUN (7-17) mg/dL Glucose (74-99) mg/dL POC Glucose (mg/dL) 219 H 143 H 115 H (75-99) mg/dL 08/22/17 08/22/17 08/22/17 Range/Units 17:24 19:58 21:17 Hgb (11.4-16.0) gm/dL BUN (7-17) mg/dL Glucose (74-99) mg/dL POC Glucose (mg/dL) 129 H 273 H 251 H (75-99) mg/dL 08/22/17 08/23/17 08/23/17 Range/Units 22:07 00:02 02:12 Hgb (11.4-16.0) gm/dL BUN (7-17) mg/dL Glucose (74-99) mg/dL POC Glucose (mg/dL) 212 H 133 H 113 H (75-99) mg/dL 08/23/17 08/23/17 08/23/17 Range/Units 03:03 05:19 07:07 Hgb (11.4-16.0) gm/dL BUN (7-17) mg/dL Glucose (74-99) mg/dL POC Glucose (mg/dL) 123 H 167 H 161 H (75-99) mg/dL 08/23/17 08/23/17 08/23/17 Range/Units 08:27 08:27 09:04 Hgb 11.3 L (11.4-16.0) gm/dL BUN 24 H (7-17) mg/dL Glucose 182 H (74-99) mg/dL POC Glucose (mg/dL) 179 H (75-99) mg/dL 08/23/17 Range/Units 10:56 Hgb (11.4-16.0) gm/dL BUN (7-17) mg/dL Glucose (74-99) mg/dL POC Glucose (mg/dL) 151 H (75-99) mg/dL Microbiology - Last 24 Hours (Table) 08/19/17 09:00 Blood Culture - Preliminary Blood No Growth after 96 hours Assessment and Plan Plan: Assessment: #1 COPD exacerbation complicated by purulent tracheobronchitis. #2 History of hypertension #3 History of hypothyroidism #4 History of insomnia #5 Gastroesophageal reflux disease #6 Hyperlipidemia #7 Left leg swelling and cellulitis, without evidence of deep venous thrombosis Obesity Plan: Plan dated 08/20/2017 Medications labs x-rays and Doppler of the lower extremities are reviewed. There is no evidence of DVT. There is cellulitis and swelling of the left lower extremity. In addition, she has a COPD exacerbation. She should be treated with short acting beta agonist, short acting muscarinic antagonist, inhaled corticosteroids, long-acting beta agonist, systemic corticosteroids, and antibiotics. X-rays reviewed. Nothing acute seen. Additional recommendations and suggestions are forthcoming. Prognosis is guarded. On 08/21/2017 patient still remains wheezing, and dyspneic with any exertion. We will continue with current plan of care, IV steroids, Tamiflu, Rocephin, Zithromax, and vancomycin. Not ready for discharge yet. We'll add Mucinex. On 08/22/2017 she and is doing better, improving. Continue with current course of treatment, continue Tamiflu and vancomycin. Rocephin and Zithromax were discontinued per ID service. We will decrease the IV Solu-Medrol 40 mg every 8 hours. Continue nebulized treatments. Anticipate discharge in next 24 hours pending clearance from ID service and recommendations for antibiotics for the left lower leg cellulitis. On 08/23/2017 patient is doing about the same, still has a diffuse wheezes, but no distress. Good air entry noted bilaterally. Vital signs remain stable, she is afebrile, she is on room air. Complaining of a sore throat, oral cavity is covered with white patches, patient has oral candidiasis. We will order nystatin swish and swallow. From pulmonary standpoint patient could be considered for discharge pending clearance from ID service. Patient will go home on her maintenance inhalers and nebulizers, and prednisone taper. Will need to finish her Tamiflu course, and antibiotics per ID service recommendations. I performed a history & physical examination of the patient and discussed their management with my nurse practitioner, Flori Colunga. I reviewed the nurse practitioner's note and agree with the documented findings and plan of care. Lung sounds are positive for diffuse wheezes. The findings and the impression was discussed with the patient. I attest to the documentation by the nurse practitioner. Time with Patient: Less than 30
[2017-08-23] MEDS ORDERED: VANCOMYCIN TROUGH DUE 1 EACH MISC MISCELLANE ONE (12:00)
[2017-08-23] MEDS: MULTIVITAMINS, THERA 1 EACH TAB PO SCH (12:58)
[2017-08-23] MEDS: FERROUS SULFATE 325 MG TAB PO SCH (12:58)
[2017-08-23] MEDS ORDERED: NYSTATIN 100,000 UNIT/ML SUSP 500,000 UNIT/5 ML CUP PO SCH (13:00)
[2017-08-23 13:24] LABS: Glucose,Whole Blood 181 mg/dL (75-99)
[2017-08-23] MEDS: VANCOMYCIN 2,000 MG in SODIUM CHLORIDE 0.9% 500 ML IVPB SCH (13:29)
[2017-08-23 15:14] LABS: Glucose,Whole Blood 166 mg/dL (75-99)
[2017-08-23] MEDS ORDERED: INSULIN DETEMIR 100 UNIT/ML 10 ML VIAL SQ ONE (15:30)
[2017-08-23 15:37] VITALS: BP 138/85; PULSE 66; TEMP 97.7
--- NOTE | 2017-08-23 15:56 | P.PN ---
Subjective Progress Note Date: 08/22/17 Progress note being dictated for Dr. Sharma. Interval history: This is a 52-year-old female admitted with acute exacerbation of asthma, acute influenza B, cellulitis and multiple other medical issues. Maintained on nebulized bronchodilators, antibiotics, antivirals. Wheezing persists. Afebrile. Infectious disease consult in place with recommendations pending regarding antibiotics, left leg cellulitis. Denies chest pain, palpitations. Active Medications Acetaminophen (Tylenol Tab) 650 mg PO Q6HR PRN PRN Reason: Mild Pain or Fever > 100.5 Last Admin: 08/20/17 20:26 Dose: 650 mg Hydrocodone Bitart/Acetaminophen (Cary 5-325) 1 each PO Q4HR PRN PRN Reason: Moderate Pain Albuterol/Ipratropium (Duoneb 0.5 Mg-3 Mg/3 Ml Soln) 3 ml INHALATION RT-Q4H [facility] Last Admin: 08/21/17 16:02 Dose: 3 ml Alprazolam (Xanax) 0.25 mg PO TID PRN PRN Reason: Anxiety Aspirin (Aspirin) 81 mg PO DAILY [facility] Last Admin: 08/21/17 07:52 Dose: 81 mg Atorvastatin Calcium (Lipitor) 20 mg PO DAILY [facility] Last Admin: 08/21/17 07:52 Dose: 20 mg Azithromycin (Zithromax) 500 mg PO DAILY [facility] Last Admin: 08/21/17 07:53 Dose: 500 mg Budesonide (Pulmicort) 1 mg INHALATION RT-BID [facility] Last Admin: 08/21/17 09:15 Dose: 1 mg Ceftriaxone Sodium (Rocephin) 1,000 mg IVP Q24HR [facility] Last Admin: 08/21/17 07:52 Dose: 1,000 mg Escitalopram Oxalate (Lexapro) 20 mg PO QAM [facility] Last Admin: 08/21/17 07:53 Dose: 20 mg Ferrous Sulfate (Feosol) 325 mg PO 1200 [facility] Last Admin: 08/21/17 07:54 Dose: 325 mg Fluticasone Propionate (Flonase Nasal Busy) 1 spray EA NOSTRIL DAILY [facility] Last Admin: 08/21/17 07:51 Dose: 1 spray Formoterol Fumarate (Perforomist) 20 mcg INHALATION RT-BID [facility] Last Admin: 08/21/17 09:15 Dose: 20 mcg Furosemide (Lasix) 20 mg PO BID@0900,1600 [facility] Last Admin: 08/21/17 15:59 Dose: 20 mg Gabapentin (Neurontin) 300 mg PO TID [facility] Last Admin: 08/21/17 15:59 Dose: 300 mg Guaifenesin (Mucinex) 1,200 mg PO Q12HR [facility] Last Admin: 08/21/17 11:11 Dose: 1,200 mg Heparin Sodium (Porcine) (Heparin) 5,000 unit SQ Q12HR [facility] Last Admin: 08/21/17 07:51 Dose: 5,000 unit Vancomycin HCl 2,000 mg/ (Sodium Chloride) 500 mls @ 167 mls/hr IVPB Q16H [facility] Last Admin: 08/21/17 12:46 Dose: 167 mls/hr Insulin Human Regular 100 unit (/ Sodium Chloride) 101 mls @ 0 mls/hr IV .Q0M [facility]; Titrate PRN Reason: Protocol Last Titration: 08/21/17 16:20 Dose: 5 mls/hr, 5 mls/hr Ibuprofen (Motrin) 600 mg PO Q8HR PRN PRN Reason: Pain Insulin Aspart (Novolog) 18 unit 0.13 unit/kg (18 unit) SQ AC-TID [facility] Last Admin: 08/21/17 12:15 Dose: Not Given Ketorolac Tromethamine (Toradol) 15 mg IVP Q6HR [facility] Stop: 08/23/17 15:26 Last Admin: 08/21/17 17:26 Dose: 15 mg Levothyroxine Sodium (Synthroid) 125 mcg PO 0630 [facility] Last Admin: 08/21/17 06:11 Dose: 125 mcg Loratadine (Claritin) 10 mg PO DAILY [facility] Last Admin: 08/21/17 07:53 Dose: 10 mg Methylprednisolone Sodium Succinate (Solu-Medrol) 60 mg IV Q6HR [facility] Last Admin: 08/21/17 17:29 Dose: 60 mg Metoprolol Succinate (Toprol Xl) 50 mg PO BID [facility] Last Admin: 08/21/17 07:52 Dose: 50 mg Morphine Sulfate (Morphine Oral Micheline 2mg/Ml) 12 mg PO Q4HR PRN PRN Reason: Severe Pain Naloxone HCl (Narcan) 0.2 mg IV Q2M PRN PRN Reason: Opioid Reversal Nystatin (Mycostatin Powder) 1 applic TOPICAL BID PRN PRN Reason: Rash Ondansetron HCl (Zofran) 4 mg IVP Q8HR PRN PRN Reason: Nausea And Vomiting Oseltamivir Phosphate (Tamiflu) 75 mg PO BID [facility] Stop: 08/23/17 23:00 Last Admin: 08/21/17 07:52 Dose: 75 mg Pantoprazole Sodium (Protonix) 40 mg PO AC-BID [facility] Last Admin: 08/21/17 15:59 Dose: 40 mg Potassium Chloride (K-Dur 20) 20 meq PO BID [facility] Last Admin: 08/21/17 07:52 Dose: 20 meq Zolpidem Tartrate (Ambien) 10 mg PO HS [facility] Last Admin: 08/20/17 20:25 Dose: 10 mg 08/22/17 maintained on vancomycin, Tamiflu, nebulized bronchodilators, steroids. Feeling better, wheezing improving. Maintained on insulin drip. Hemoglobin A1c 8.1. Potassium 5.3. Denies chest pain, palpitations. Objective - Vital Signs Vital signs: Vital Signs Temp 98.1 F 08/22/17 15:00 Pulse 78 08/22/17 20:42 Resp 18 08/22/17 15:10 BP 132/73 08/22/17 15:00 Pulse Ox 95 08/22/17 15:00 Intake & Output 08/22/17 08/22/17 08/23/17 06:59 18:59 06:59 Intake Total 1289.967 48.634 14.125 Output Total 1 Balance 1288.967 48.634 14.125 Intake: IV 500 Vancomycin 2,000 mg In 500 Sodium Chloride 0.9% 500 ml @ 167 mls/hr IVPB Q16H [facility] Rx#:[id number] Intake, IV Titration 89.967 48.634 14.125 Amount Insulin Regular 100 unit 89.967 48.634 14.125 In Sodium Chloride 0.9% 100 ml @ Titrate IV .Q0M [facility] Rx#:[id number] Oral 700 Output: Urine 1 Other: Voiding Method Toilet # Voids 1 2 - Exam PHYSICAL EXAM: VITAL SIGNS: As above GENERAL: Sitting up in bed, no acute distress HEENT: Conjunctivae normal. eyes normal. Oral mucosa moist NECK: No JVD. No thyroid enlargement. No LNs CARDIOVASCULAR: S1, S2 muffled. No murmur RESPIRATION: Better air entry today,Breath sounds diminished in the bases. Improving expiratory wheezes Bilateral scattered rhonchi. ABDOMEN: Soft, nontender . No guarding. no masses palpable. Bowel sounds heard. LEGS: Chronic venous stasis, left foot less tender with improving edema, gross reddened, pink, PSYCHIATRY: Alert and oriented -3, mood and affect normal. NERVOUS SYSTEM: Cranial N 2-12 grossly normal. Moves all 4 limbs. Diffuse weakness No focal deficits. Joints: No active swelling. No inflammation. Lymphatic system. No LN neck axilla or groin. - Labs CBC & Chem 7: 08/23/17 08:27 08/23/17 08:27 Labs: Abnormal Lab Results - Last 24 Hours (Table) 08/21/17 08/22/17 08/22/17 Range/Units 22:52 01:29 03:37 RBC (3.80-5.40) m/uL Hgb (11.4-16.0) gm/dL Hct (34.0-46.0) % Lymphocytes # (1.0-4.8) k/uL Chloride (98-107) mmol/L BUN (7-17) mg/dL Glucose (74-99) mg/dL POC Glucose (mg/dL) 303 H 220 H 197 H (75-99) mg/dL 08/22/17 08/22/17 08/22/17 Range/Units 06:33 07:21 07:21 RBC 3.64 L (3.80-5.40) m/uL Hgb 10.4 L (11.4-16.0) gm/dL Hct 32.3 L (34.0-46.0) % Lymphocytes # 0.6 L (1.0-4.8) k/uL Chloride 109 H (98-107) mmol/L BUN 26 H (7-17) mg/dL Glucose 152 H (74-99) mg/dL POC Glucose (mg/dL) 131 H (75-99) mg/dL 08/22/17 08/22/17 08/22/17 Range/Units 07:49 09:58 11:51 RBC (3.80-5.40) m/uL Hgb (11.4-16.0) gm/dL Hct (34.0-46.0) % Lymphocytes # (1.0-4.8) k/uL Chloride (98-107) mmol/L BUN (7-17) mg/dL Glucose (74-99) mg/dL POC Glucose (mg/dL) 166 H 309 H 219 H (75-99) mg/dL 08/22/17 08/22/17 08/22/17 Range/Units 14:34 16:03 17:24 RBC (3.80-5.40) m/uL Hgb (11.4-16.0) gm/dL Hct (34.0-46.0) % Lymphocytes # (1.0-4.8) k/uL Chloride (98-107) mmol/L BUN (7-17) mg/dL Glucose (74-99) mg/dL POC Glucose (mg/dL) 143 H 115 H 129 H (75-99) mg/dL 08/22/17 08/22/17 08/22/17 Range/Units 19:58 21:17 22:07 RBC (3.80-5.40) m/uL Hgb (11.4-16.0) gm/dL Hct (34.0-46.0) % Lymphocytes # (1.0-4.8) k/uL Chloride (98-107) mmol/L BUN (7-17) mg/dL Glucose (74-99) mg/dL POC Glucose (mg/dL) 273 H 251 H 212 H (75-99) mg/dL Microbiology - Last 24 Hours (Table) 08/19/17 09:00 Blood Culture - Preliminary Blood No Growth after 72 hours Assessment and Plan Assessment: 1. Acute asthma exacerbation with acute purulent tracheobronchitis 2. Acute influenza B 3. Diabetes possibly new onset, uncontrolled 4. Acute cellulitis of the left foot 5. Leukopenia 6. Gastroesophageal reflux disease 7. Chronic back pain with recent epidural injection 8. Obesity, BMI 55 Plan: Continue current medication regime ,monitoring and symptomatic treatment. Hemoglobin A1c 8.1, diabetic teaching. Low potassium diet ordered, close monitoring of electrolytes with repeat labs ordered for a.m. Maintain nebulized bronchodilators, steroids, Tamiflu. Antibiotics, wound care as per infectious disease. Symptomatic treatment. Discharge planning in progress for tomorrow. The impression and plan of care has been dictated as directed. : I performed a history and examination of this patient, discussed the same with the dictator. I agree with the dictator's note ,documented as a scribe. Any additional findings or plans will be noted.
[2017-08-23] MEDS ORDERED: CEPHALEXIN 500 MG CAP PO SCH (16:00)
[2017-08-23] MEDS ORDERED: IBUPROFEN 600 MG TAB PO PRN (18:00)
--- NOTE | 2017-08-23 21:33 | P.PN ---
Subjective Progress Note Date: 08/23/17 Principal diagnosis: flu b 52-year-old female presents to Hospital from home because she was not feeling well with fever and having difficulties with several days of increasing pain and swelling and erythema to her left foot. She is a known history of asthma and she thought this was worsening where she was having increasing wheezing and shortness of breath. With these symptoms she presented to the emergency center was on evidence of influenza B as well as a cellulitis to her left foot when she was admitted to hospital. She's been seen by her manuscript reader and infectious diseases consultation was requested regarding her cellulitis to her left foot. The patient relates the foot remains somewhat uncomfortable. It significantly bothers her especially when is in the dependent position. She however feels more short of breath with her legs are elevated. Is not she felt she was having a fever but is denying chills or rigors. The patient does have severe obesity and does have difficulties with some lower extremity edema but current problem is more unilateral to the left foot and is quite uncomfortable. Patient has had x-ray of the foot without evidence of fracture or foreign body. In a duplex of the left lower extremity failed to reveal evidence of a deep venous thrombosis. The patient denies any trauma before the onset of this difficulty. She also does not have any long trips or changes in her activity 08/22/2017 reveals the patient to be feeling somewhat better. She is less short of breath. However setting some cough. She apparently had difficulty swallowing early in the day and developed a bit of a sore throat from her frequent cough. Will offer some Cepacol for discomfort. Lower extremities feeling better also 08/23/2017 patient is now considerably improved. Shortness of breath is near baseline. Still minimal sore throat and minimal cough. Lower extremity swelling is improved. Responded to current treatment. Objective - Vital Signs Vital signs: Vital Signs Temp 97.7 F 08/23/17 15:00 Pulse 66 08/23/17 15:00 Resp 16 08/23/17 15:00 BP 138/85 08/23/17 15:00 Pulse Ox 93 L 08/23/17 15:00 Intake & Output 08/23/17 08/23/17 08/24/17 06:59 18:59 06:59 Intake Total 634.724 5.875 Balance 634.724 5.875 Intake: Intake, IV Titration 34.724 5.875 Amount Insulin Regular 100 unit 34.724 5.875 In Sodium Chloride 0.9% 100 ml @ Titrate IV .Q0M [facility] Rx#:[id number] Oral 600 Other: # Voids 1 2 - Exam 52-year-old woman who has superobesity is comfortable at this point in time and if she is not profound short of breath but is still having some wheezing. Is complaining of some discomfort to her left foot and leg. HEENT: Anicteric conjunctiva are pink and moist nasal mucosa grossly intact without significant lesions, there is no thrush. Neck: The neck is supple without significant lymphadenopathy or thyromegaly. Lungs: There is symmetrical air entry with expiratory wheezes throughout the lung reyna there is a somewhat protracted expiratory phase. She does not have uzma bronchial sounds there is no dullness or egophony Heart: Regular rate and rhythm with an audible S1-S2, no S3 no S4. There is no significant murmur click or rub, PMI was nondisplaced. Abdomen: Obese Positive bowel sounds soft and nontender without palpable masses or organomegaly. There was no guarding or rebound. Extremities: The upper extremities have excellent pulses they are symmetric, no significant petechiae or telangiectasia. No splinter hemorrhages were noted. Extremities have evidence of the chronic venous stasis changes and some chronic lymphedema. The left foot however as the changes of significant swelling compared to the right. There is warmth and erythema and tenderness of the dorsum of the foot to the toes themselves. There is no evidence of any open ulcerations at this time. The skin is somewhat dry. Neuro: Awake alert oriented to person place and time. There are no acute new gross focal sensory motor deficits. - Labs CBC & Chem 7: 08/23/17 08:27 08/23/17 08:27 Labs: Abnormal Lab Results - Last 24 Hours (Table) 08/22/17 08/23/17 08/23/17 Range/Units 22:07 00:02 02:12 Hgb (11.4-16.0) gm/dL BUN (7-17) mg/dL Glucose (74-99) mg/dL POC Glucose (mg/dL) 212 H 133 H 113 H (75-99) mg/dL 08/23/17 08/23/1708/23/18 Range/Units 03:03 05:19 07:07 Hgb (11.4-16.0) gm/dL BUN (7-17) mg/dL Glucose (74-99) mg/dL POC Glucose (mg/dL) 123 H 167 H 161 H (75-99) mg/dL 08/23/17 08/23/17 08/23/17 Range/Units 08:27 08:27 09:04 Hgb 11.3 L (11.4-16.0) gm/dL BUN 24 H (7-17) mg/dL Glucose 182 H (74-99) mg/dL POC Glucose (mg/dL) 179 H (75-99) mg/dL 08/23/17 08/23/17 08/23/17 Range/Units 10:56 13:21 15:09 Hgb (11.4-16.0) gm/dL BUN (7-17) mg/dL Glucose (74-99) mg/dL POC Glucose (mg/dL) 151 H 181 H 166 H (75-99) mg/dL Microbiology - Last 24 Hours (Table) 08/19/17 09:00 Blood Culture - Preliminary Blood No Growth after 96 hours Laboratory Results WBC 6.6 k/uL (3.8-10.6) 08/23/17 08:27 RBC 3.92 m/uL (3.80-5.40) 08/23/17 08:27 Hgb 11.3 gm/dL (11.4-16.0) L 08/23/17 08:27 Hct 35.1 % (34.0-46.0) 08/23/17 08:27 MCV 89.6 fL (80.0-100.0) 08/23/17 08:27 MCH 29.0 pg (25.0-35.0) 08/23/17 08:27 MCHC 32.3 g/dL (31.0-37.0) 08/23/17 08:27 RDW 14.7 % (11.5-15.5) 08/23/17 08:27 Plt Count 194 k/uL (150-450) 08/23/17 08:27 Neutrophils % 79 % 08/23/17 08:27 Neutrophils % (Manual) 59 % 08/19/17 09:00 Band Neutrophils % 1 % 08/19/17 09:00 Lymphocytes % 16 % 08/23/17 08:27 Lymphocytes % (Manual) 32 % 08/19/17 09:00 Monocytes % 4 % 08/23/17 08:27 Monocytes % (Manual) 8 % 08/19/17 09:00 Eosinophils % 0 % 08/23/17 08:27 Basophils % 0 % 08/23/17 08:27 Neutrophils # 5.2 k/uL (1.3-7.7) 08/23/17 08:27 Neutrophils # (Manual) 1.80 k/uL (1.3-7.7) 08/19/17 09:00 Lymphocytes # 1.0 k/uL (1.0-4.8) 08/23/17 08:27 Lymphocytes # (Manual) 0.99 k/uL (1.0-4.8) L 08/19/17 09:00 Monocytes # 0.3 k/uL (0-1.0) 08/23/17 08:27 Monocytes # (Manual) 0.25 k/uL (0-1.0) 08/19/17 09:00 Eosinophils # 0.0 k/uL (0-0.7) 08/23/17 08:27 Basophils # 0.0 k/uL (0-0.2) 08/23/17 08:27 Nucleated RBCs 0 /100 WBC (0-0) 08/19/17 09:00 Anisocytosis (manual) Present 08/19/17 09:00 ESR Cancelled 08/19/17 09:00 PT 9.9 sec (9.0-12.0) 08/19/17 09:00 INR 1.0 (<1.2) 08/19/17 09:00 APTT 20.5 sec (22.0-30.0) L 08/19/17 09:00 Sodium 143 mmol/L (137-145) 08/23/17 08:27 Potassium 4.6 mmol/L (3.5-5.1) 08/23/17 08:27 Chloride 106 mmol/L (98-107) 08/23/17 08:27 Carbon Dioxide 27 mmol/L (22-30) 08/23/17 08:27 Anion Gap 10 mmol/L 08/23/17 08:27 BUN 24 mg/dL (7-17) H 08/23/17 08:27 Creatinine 0.88 mg/dL (0.52-1.04) 08/23/17 08:27 Est GFR (MDRD) Af Amer >60 (>60 ml/min/1.73 sqM) 08/23/17 08:27 Est GFR (MDRD) Non-Af >60 (>60 ml/min/1.73 sqM) 08/23/17 08:27 Glucose 182 mg/dL (74-99) H 08/23/17 08:27 POC Glucose (mg/dL) 166 mg/dL (75-99) H 08/23/17 15:09 POC Glu [employer] ID Shakira Daniel 08/23/17 15:[address] Glu mg/dL 186 08/19/17 09:00 Hemoglobin A1c 8.1 % (4.0-6.0) H 08/19/17 09:00 Plasma Lactic Acid Bereket 1.6 mmol/L (0.7-2.0) 08/19/17 09:00 Uric Acid 4.6 mg/dL (3.7-7.4) 08/19/17 09:00 Calcium 9.4 mg/dL (8.4-10.2) 08/23/17 08:27 Total Bilirubin 0.7 mg/dL (0.2-1.3) 08/19/17 09:00 AST 24 U/L (14-36) 08/19/17 09:00 ALT 49 U/L (9-52) 08/19/17 09:00 Alkaline Phosphatase 98 U/L (38-126) 08/19/17 09:00 C-Reactive Protein 20.9 mg/L (<10.0) H 08/19/17 09:00 Total Protein 7.7 g/dL (6.3-8.2) 08/19/17 09:00 Albumin 4.4 g/dL (3.5-5.0) 08/19/17 09:00 Vancomycin Trough 14.8 ug/mL 08/23/17 11:56 Influenza Type A RNA Not Detected (Not Detectd) 08/19/17 09:00 Influenza Type B (PCR) Detected (Not Detectd) H 08/19/17 09:00 Microbiology 08/19/17 09:00 Blood Blood Culture - Preliminary No Growth after 96 hours 08/20/17 16:00 Urine,Clean Catch Urine Culture - Final Assessment and Plan (1) Influenza B Status: Acute Code(s): J10.1 - FLU DUE TO OTH IDENT INFLUENZA VIRUS W OTH RESP MANIFEST SNOMED Code(s): 84349623 (2) Asthma exacerbation Status: Acute Code(s): J45.901 - UNSPECIFIED ASTHMA WITH (ACUTE) EXACERBATION SNOMED Code(s): 769155369 (3) Left leg cellulitis Narrative/Plan: 52-year-old female presents to Hospital with difficulties with pain swelling and discomfort to her left foot so she was starting to interfere with her ability to walk. She also is having difficulties with some increasing shortness of breath and wheezing. She is a known history of asthma. At the time of presentation emergency center there was no evidence of any uzma pneumonia however influenza B test was positive and she's been initiated a Tamiflu therapy and the full course should be continued. X-rays are performed without evidence of uzma pneumonia. Will not need further intravenous antibiotic therapy for pneumonia. The patient however does have the significant cellulitis of the left lower extremity especially on the foot dorsum and lower part of the leg. It is warm erythematous and tender. A Silvadene wrap has been prescribed and should be done twice per day, covered with some rolled gauze and Fausto wrap. Elevation of her limb while at rest will also be quite helpful. Pain control seems to be adequate. As far as antibiotic therapy vancomycin as monotherapy is all that is needed at this point in time until we have some further data. The fever present admission is now improving and she is having some slight improvement. Adequate protein intake and a multivitamin her helpful for her wound healing. Cellulitis will be monitored. 08/22/2017 reveals the patient to have some improvement. Other than some significant sore throat from coughing considerably because she swallowed poorly earlier. She steadily improved. Will offer some Cepacol. Continue her course of Tamiflu to complete the full 10 dose regiment. The leg is improved and will finish up a course of cephalexin at discharge for the cellulitis of the leg that is rapidly improving. 08/23/2017 patient has further improvement. Her sore throat is improved. Doing well with Tamiflu will complete her 10 doses. Cephalexin will be utilized to finish the treatment of the cellulitis to the left leg that is having marked improvement. She tolerated Rocephin and would expect no difficulties with the cephalosporin. Is sent to her pharmacy. Status: Acute Code(s): L03.116 - CELLULITIS OF LEFT LOWER LIMB SNOMED Code(s ): 954405222 (4) Obesity, Class III, BMI 40-49.9 (morbid obesity) Status: Acute Code(s): E66.01 - MORBID (SEVERE) OBESITY DUE TO EXCESS CALORIES SNOMED Code(s): 156077770
--- NOTE | 2017-08-24 07:21 | DS ---
DISCHARGE SUMMARY DATE OF SERVICE: 08/23/2017. FINAL DIAGNOSES: 1. Acute asthma acute exacerbation with acute purulent tracheobronchitis. 2. Acute influenza B. 3. Diabetes, possibly new onset, uncontrolled. 4. Acute cellulitis, left foot. 5. Leukopenia. 6. Gastroesophageal reflux disease. 7. Chronic back pain, recent epidural injections. 8. Obesity with body mass index of 55. DISCHARGE DISPOSITION: The patient is being discharged in stable condition with guarded prognosis. HISTORY OF PRESENT ILLNESS: This 52 -year-old woman with a past medical history of multiple medical problems was admitted with acute asthma exacerbation, acute influenza B, patient being treated with antibiotics and bronchodilators. Dr. Moore and Dr. Hollingsworth saw the patient. Cleared by both of them for discharge. Vitals are stable. Cardiovascular S1, S2. Abdomen soft. Central nervous system: No focal deficits. DISCHARGE ADVICE AND MEDICATIONS: 1. Diet cardiac diet. 2. Activity limited until followup. 3. Follow up with Dr. Soto in 2-3 days. 4. Follow up with Dr. Hollingsworth as advised. MEDICATIONS ARE: 1. Ventolin inhaler p.r.n. 2. Ecotrin 81 mg p.o. daily. 3. Lipitor 10 mg b.i.d. 4. Symbicort 2 puffs b.i.d. 5. Keflex 500 mg q.8 for 5 days. 6. Lexapro 20 mg q.a.m. 7. Iron sulfate 325 mg p.o. daily. 8. Flonase 1 spray daily. 9. Lasix 20 mg p.o. b.i.d. 10.Neurontin 300 mg p.o. t.i.d. 11.Mucinex 300 mg p.o. b.i.d. 12.Motrin 600 mg q.8h p.r.n. 13.DuoNeb q.i.d. and p.r.n. 14.Synthroid 125 mg p.o. daily. 15.Claritin 10 mg p.o. daily. 16.Toprol-XL 50 mg p.o. b.i.d. 17.Multivitamin p.o. daily. 18.Nystatin topically. 19.Prilosec 20 mg a.c. b.i.d. 20.Tamiflu 70 mg p.o. b.i.d. for 1 more day. 21.Klor-Con 20 mEq p.o. b.i.d. 22.Prednisone taper that will be 40 mg daily for 4 days, 30 for 4 days, 20 for 4 days, 10 for 4 days. 23.SilvaSorb sulfadiazine cream for local application. 24.Ultram 50 mg q.6h. 25.Ambien 10 mg q.h.s.. Follow up with Dr. Hollingsworth as recommend. Copy to Dr. Soto and Dr. Hollingsworth. Once again, the patient is being discharged in stable condition with guarded prognosis. MMODL / IJN: [id number] /
== END 2017-08-23 16:46 | disposition home or self-care (01) | DRG 194 ==
LOC: EC 08:26 → 4MS4W 11:48
PROVIDERS: ADMIT Hospitalist; ATTEND Hospitalist
DX: J10.1 Influenza due to other identified influenza virus with other respiratory manifestations (principal); J45.21 Mild intermittent asthma with (acute) exacerbation; B37.0 Candidal stomatitis; E66.01 Morbid (severe) obesity due to excess calories; L03.116 Cellulitis of left lower limb; E11.9 Type 2 diabetes mellitus without complications; D72.819 Decreased white blood cell count, unspecified; E03.9 Hypothyroidism, unspecified; E78.5 Hyperlipidemia, unspecified; F32.9 Major depressive disorder, single episode, unspecified; F41.9 Anxiety disorder, unspecified; G89.29 Other chronic pain; I10 Essential (primary) hypertension; K21.9 Gastro-esophageal reflux disease without esophagitis; R09.02 Hypoxemia; Z79.4 Long term (current) use of insulin; Z79.51 Long term (current) use of inhaled steroids; Z79.52 Long term (current) use of systemic steroids; Z79.82 Long term (current) use of aspirin; Z79.899 Other long term (current) drug therapy; Z96.1 Presence of intraocular lens; Z79.890 Hormone replacement therapy; Z79.1 Long term (current) use of non-steroidal anti-inflammatories (NSAID); Z88.0 Allergy status to penicillin; Z85.3 Personal history of malignant neoplasm of breast; M54.9 Dorsalgia, unspecified; J20.9 Acute bronchitis, unspecified
CPT/HCPCS: 36415; 71046; 80048; 80053; 80202; 83036; 83605; 84550; 85025; 85610; 85730; 86140; 87040; 87086; 87502; 94640; 94760; 96365; 96366; 96375; 99285

== ENCOUNTER → 2017-09-12 | Outpatient (CLI) | payer OTHER ==
--- NOTE | 2017-09-13 09:40 | US ---
EXAMINATION TYPE: US thyroid st tissue head/neck DATE OF EXAM: 09/12/2017 COMPARISON: 10/11/2016 CLINICAL HISTORY: Edema R60.9. Patient states bilateral neck swelling Multiple hypoechoic areas visualized bilaterally. Largest on the right measuring 1.4 x 0.9 x 1.6 cm, possible lymph node. Largest on the left measuring 1.3 x 0.6 x 0.7 cm, possible lymph node. IMPRESSION: 1. Multiple hypoechoic nodules are nonspecific but most typical lymphadenopathy. Correlate with CT sc an of the neck as clinically warranted.
== END | disposition home or self-care (01) ==
LOC: RADUSMAIN 15:57
PROVIDERS: ATTEND Family Medicine
DX: R59.0 Localized enlarged lymph nodes (principal)
CPT/HCPCS: 76536

== ENCOUNTER → 2017-09-17 | Outpatient (CLI) | payer OTHER ==
--- NOTE | 2017-09-17 12:59 | CT ---
EXAMINATION TYPE: CT soft tissue neck w con DATE OF EXAM: 09/17/2017 COMPARISON: NONE HISTORY: Patient complains of swollen neck. Patient had abnormal US at [facility]. CT DLP: 615.5 mGycm CONTRAST: CT scan of the neck is performed with IV Contrast, patient injected with 100 mL of Isovue 300. Contrast enhanced CT of the neck was performed from the skull base through the lung apices. AIRWAY: The supraglottic, glottic, and subglottic portions of the airway appear patent and free of mass. SALIVARY GLANDS: The submandibular and parotid glands are free of mass or inflammatory process. THYROID GLAND: No nodules or masses seen. LYMPH NODES: Calcified lymph node lateral to the left dominant jugular vein measures 2.0 x 1.2 cm. Escobar bcentimeter lymph nodes within the internal jugular chains bilaterally. No adenopathy greater than 1 cm is visualized. LUNG APICES: No nodule or mass is seen. OTHER: Vascular structures are patent. Tortuosity of the common carotid arteries which are partially retropharyngeal in location. No significant degenerative change of the cervical spine. No abscess s een. IMPRESSION: 1. No evidence for adenopathy greater than 1 cm. Calcified lymph node within the left neck.
--- NOTE | 2017-09-18 21:18 | ECHOF ---
Referral Reason:Lymphadenitis I88.9 MEASUREMENTS -------- HEIGHT: 157.5 cm WEIGHT: 136.5 kg BP: 133/70 RVIDd: 3.4 cm (< 3.3) IVSd: 1.2 cm (0.6 - 1.1) LVIDd: 4.0 cm (3.9 - 5.3) LVPWd: 1.2 cm (0.6 - 1.1) EDV(Teich): 72 ml IVSs: 1.5 cm LVIDs: 2.6 cm LVPWs: 1.5 cm %IVS Thck: 22 % ESV(Teich): 24 ml EF(Teich): 66 % %FS: 36 % SV(Teich): 47 ml LA Diam: 2.9 cm (2.7 - 3.8) Ao Diam: 3.7 cm (2.0 - 3.7) AV Cusp: 1.9 cm (1.5 - 2.6) LA Diam: 3.7 cm (2.7 - 3.8) MV E Zenon: 0.78 m/s MV DecT: 174 ms MV Dec Mcdonough: 4.5 m/s MV A Zenon: 0.75 m/s MV E/A Ratio: 1.04 MV PHT: 50 ms E/E': 11.95 E': 0.07 m/s AV Vmax: 1.29 m/s AV maxP.65 mmHg TR Vmax: 1.41 m/s TR maxP.99 mmHg RAP: 5.00 mmHg RVSP: 12.99 mmHg FINDINGS -------- Sinus rhythm. This was a technically difficult study with suboptimal views. The left ventricular size is normal. There is mild concentric left ventricular hypertrophy. Overa ll left ventricular systolic function is normal with, an EF between 55 - 60 %. The right ventricle is mild to moderately enlarged. The left atrial size is normal. RA appears enlarged. 2ml of Lumason was utilized for enhancement of images. There is mild aortic valve sclerosis. There is no evidence of aortic regurgitation. There is no e vidence of aortic stenosis. The mitral valve was not well visualized. There is trace mitral regurgitation. Trace tricuspid regurgitation present. Right ventricular systolic pressure is normal at < 35 mmHg. There is no evidence of pulmonary hypertension. The pulmonic valve was not well visualized. The aortic root size is normal. IVC Not well visulized. There is no pericardial effusion. CONCLUSIONS -------- 1. Sinus rhythm. 2. This was a technically difficult study with suboptimal views. 3. The left ventricular size is normal. 4. There is mild concentric left ventricular hypertrophy. 5. Overall left ventricular systolic function is normal with, an EF between 55 - 60 %. 6. The right ventricle is mild to moderately enlarged. 7. The left atrial size is normal. 8. RA appears enlarged. 9. 2ml of Lumason was utilized for enhancement of images. 10. There is mild aortic valve sclerosis. 11. The mitral valve was not well visualized. 12. There is trace mitral regurgitation. 13. Trace tricuspid regurgitation present. 14. Right ventricular systolic pressure is normal at < 35 mmHg. 15. There is no evidence of pulmonary hypertension. 16. The pulmonic valve was not well visualized. 17. The aortic root size is normal. 18. IVC Not well visulized. 19. There is no pericardial effusion. [employer] TECHNOLOGIST: Carlton Noble RDCS
== END | disposition home or self-care (01) ==
LOC: RADECHMAIN 11:26
PROVIDERS: ATTEND Family Medicine
DX: I08.1 Rheumatic disorders of both mitral and tricuspid valves (principal); R59.0 Localized enlarged lymph nodes
CPT/HCPCS: 70491; C8929; Q9950; Q9967; 93306

== ENCOUNTER 2017-10-29 20:16 | Emergency (ER) | payer OTHER ==
[2017-10-29 20:27] VITALS: RESP 18
[2017-10-29] MEDS ORDERED: SODIUM CHLORIDE 0.9% 1,000 ML IV STA ×2 (20:39)
[2017-10-29] MEDS ORDERED: RX INFO: IV CONTRAST WAS GIVEN 1 EACH MISC MISCELLANE PRN (20:39)
[2017-10-29] MEDS ORDERED: ONDANSETRON 4 MG/2 ML VIAL IVP STA (20:39)
[2017-10-29] MEDS ORDERED: MORPHINE SULFATE 4 MG/ML SYRINGE IV STA (20:39)
--- NOTE | 2017-10-29 21:18 | ED ---
Abdominal Pain HPI - General Chief Complaint: Abdominal Pain Stated Complaint: flank pain Time Seen by Provider: 10/29/17 20:23 Source: patient, RN notes reviewed, old records reviewed Mode of arrival: wheelchair Limitations: no limitations - History of Present Illness Initial Comments: Patient is a 52-year-old female presents emergency room with a chief complaint of onset of left lower quadrant abdominal pain for one day. She reports sore throat with movement and going over bumps in the car. She states that she's had normal bowel habits today. Normal urination. She said history of ovarian cyst but states this pain seems different than this. Patient states that she's had a normal colonoscopy. She denies any vomiting or nausea. States the pain is worse with laying flat. Only stated left lower quadrant and radiates towards her back. She reports that even taking deep breaths causes some pain on her left lower quadrant. - Related Data Home Medications Medication Instructions Recorded Confirmed Escitalopram Oxalate [Lexapro] 30 mg PO QAM 05/04/16 10/29/17 Ferrous Sulfate [Iron (65 MG 325 mg PO DAILY 05/04/16 10/29/17 Elemental)] Omeprazole [PriLOSEC] 20 mg PO AC-BID 05/04/16 10/29/17 Aspirin [Adult Low Dose Aspirin EC] 81 mg PO DAILY 10/26/16 10/29/17 Atorvastatin [Lipitor] 20 mg PO DAILY 10/26/16 10/29/17 Fluticasone Nasal [place] [Flonase 1 spray EA NOSTRIL DAILY 10/26/16 10/29/17 Nasal [place]] Loratadine [Claritin] 10 mg PO DAILY 10/26/16 10/29/17 Zolpidem [Ambien] 10 mg PO HS 10/26/16 10/29/17 Furosemide [Lasix] 20 mg PO BID 08/19/17 10/29/17 Gabapentin [Neurontin] 300 mg PO TID 08/19/17 10/29/17 Levothyroxine Sodium [Synthroid] 125 mcg PO DAILY 08/19/17 10/29/17 Nystatin 100,000 Unit/gm Powd 1 applic TOPICAL BID PRN 08/19/17 10/29/17 [Mycostatin Powder] Potassium Chloride [Klor-Con 20] 20 meq PO BID 08/19/17 10/29/17 Calcium Carbonate/Vitamin D3 1 tab PO DAILY 10/08/17 10/29/17 [Calcium 600-Vit D3 400 Caplet] Metoprolol Tartrate [Lopressor] 50 mg PO BID 10/08/17 10/29/17 Montelukast [Singulair] 10 mg PO HS 10/08/17 10/29/17 Naproxen 500 mg PO DAILY PRN 10/08/17 10/29/17 Albuterol Inhaler [Ventolin Hfa 2 puff INHALATION RT-QID PRN 10/29/17 10/29/17 Inhaler] Budesonide/Formoterol Fumarate 2 puff INHALATION RT-BID 10/29/17 10/29/17 [Symbicort 160-4.5 Mcg Inhaler] Ipratropium-Albuterol Nebulize 3 ml INHALATION RT-QID PRN 10/29/17 10/29/17 [Duoneb 0.5 mg-3 mg/3 ml Soln] busPIRone HCl [Buspar] 5 mg PO BID 10/29/17 10/29/17 Previous Rx's Medication Instructions Recorded traMADol HCL [Ultram] 50 mg PO Q6HR PRN #1 tab 08/23/17 Bisacodyl [Dulcolax] 10 mg PO ONCE #12 tablet. 10/29/17 Ciprofloxacin HCl [Cipro] 500 mg PO Q12HR 10 Days tab 10/29/17 HYDROcodone/APAP 5-325MG [Berwick 5] 1 each PO Q6HR PRN #12 tab 10/29/17 metroNIDAZOLE [Flagyl] 500 mg PO TID #30 tab 10/29/17 Allergies Allergy/AdvReac Type Severity Reaction Status Date / Time Penicillins Allergy Rash/Hives Verified 10/29/17 21:30 Review of Systems ROS Statement: Those systems with pertinent positive or pertinent negative responses have been documented in the HPI. ROS Other: All systems not noted in ROS Statement are negative. Past Medical History Past Medical History: Asthma, Diabetes Mellitus, GERD/Reflux, Hyperlipidemia, Hypertension, Thyroid Disorder Additional Past Medical History / Comment(s): Chronic back pain, neuropathy L hand, L hand 2nd and 3rd fingers are "locking up" at times, carpal tunnel, hypothyroid, iron deficiency anemia, insomnia, sinus problems. History of Any Multi-Drug Resistant Organisms: None Reported Past Surgical History: Adenoidectomy, Heart Catheterization, Tonsillectomy, Tubal Ligation Additional Past Surgical History / Comment(s): carpel tunnel right wrist, bilateral cataract removal, bilateral laser eye surgery/lens implants, colonoscopy, epidural injections with last time being 1 week ago. Past Anesthesia/Blood Transfusion Reactions: No Reported Reaction Past Psychological History: Anxiety, Depression Smoking Status: Never smoker Past Alcohol Use History: None Reported Past Drug Use History: None Reported - Past Family History Mother Family Medical History: Cancer Father Family Medical History: No Reported History Additional Family Medical History / Comment(s): Father is living. General Exam - General Exam Comments Initial Comments: The obese 52-year-old female. Limitations: no limitations General appearance: alert, in no apparent distress Head exam: Present: atraumatic, normocephalic, normal inspection Eye exam: Present: normal appearance, PERRL, EOMI. Absent: scleral icterus, conjunctival injection, periorbital swelling ENT exam: Present: normal exam, mucous membranes moist Neck exam: Present: normal inspection. Absent: tenderness, meningismus, lymphadenopathy Respiratory exam: Present: normal lung sounds bilaterally. Absent: respiratory distress, wheezes, rales, rhonchi, stridor Cardiovascular Exam: Present: regular rate, normal rhythm, normal heart sounds. Absent: systolic murmur, diastolic murmur, rubs, gallop, clicks GI/Abdominal exam: Present: soft, tenderness (Left lower quadrant tenderness on exam. Guarding.), normal bowel sounds. Absent: distended, guarding, rebound, rigid Extremities exam: Present: normal inspection, full ROM, normal capillary refill. Absent: tenderness, pedal edema, joint swelling, calf tenderness Back exam: Present: normal inspection Neurological exam: Present: alert, oriented X3, CN II-XII intact Psychiatric exam: Present: normal affect, normal mood Course Vital Signs 10/29/17 10/29/17 10/29/17 20:24 22:18 23:03 Temperature 99 F 97.9 F Pulse Rate 74 77 68 Respiratory 18 18 18 Rate Blood Pressure 150/74 128/67 136/73 O2 Sat by Pulse 94 L 95 95 Oximetry Medical Decision Making - Medical Decision Making Patient is a 52-year-old female presents emergency room with a chief complaint of onset of left lower quadrant abdominal pain for one day. She reports sore throat with movement and going over bumps in the car. She states that she's had normal bowel habits today. Normal urination. She said history of ovarian cyst but states this pain seems different than this. Patient states that she's had a normal colonoscopy. Patient was give IV fluids labs obatiend, EKG was reviewed. No significant changes. Patient negative troponin, and WBC was low. Normal UA And chemistry panel. Given patient's hand in a CT abdomen and pelvis was completed. CT shows evidence of vocal colitis or diverticulitis. Also noted that patient had a chest text Ray and had mentioned a possibility of thoracic aortic aneurytsm. Evidence of cardiomegaly. Her chest x-ray is stable and not change from previous studies. I discussed that with completing CT abdomen and pelvis, we cannot repeat CT scan for aorta in same day. She denies chest pain, or any thoracic back pain. Patient informed she needs to follow up in one day with PCP about diverticulitis finding and possible thoracic aneurysm KAITLIN. Will treat diverticulitis with cipro and flagyl, pain medication and stool softner. Discussed return parameters. Patient agrees to treatment plan and will comply. - Lab Data Result diagrams: 10/29/17 20:47 10/29/17 20:47 Lab Results 10/29/17 10/29/17 10/29/17 Range/Units 20:47 20:47 20:47 WBC 3.7 L (3.8-10.6) k/uL RBC 3.82 (3.80-5.40) m/uL Hgb 12.0 (11.4-16.0) gm/dL Hct 35.7 (34.0-46.0) % MCV 93.3 (80.0-100.0) fL MCH 31.4 (25.0-35.0) pg MCHC 33.7 (31.0-37.0) g/dL RDW 14.0 (11.5-15.5) % Plt Count 245 (150-450) k/uL Neutrophils % 52 % Lymphocytes % 36 % Monocytes % 5 % Eosinophils % 4 % Basophils % 0 % Neutrophils # 1.9 (1.3-7.7) k/uL Lymphocytes # 1.3 (1.0-4.8) k/uL Monocytes # 0.2 (0-1.0) k/uL Eosinophils # 0.1 (0-0.7) k/uL Basophils # 0.0 (0-0.2) k/uL PT 9.6 (9.0-12.0) sec INR 1.0 (<1.2) APTT 21.2 L (22.0-30.0) sec Sodium 142 (137-145) mmol/L Potassium 4.0 (3.5-5.1) mmol/L Chloride 99 (98-107) mmol/L Carbon Dioxide 28 (22-30) mmol/L Anion Gap 15 mmol/L BUN 11 (7-17) mg/dL Creatinine 0.69 (0.52-1.04) mg/dL Est GFR (CKD-EPI)AfAm >90 (>60 ml/min/1.73 sqM) Est GFR (CKD-EPI)NonAf >90 (>60 ml/min/1.73 sqM) Glucose 141 H (74-99) mg/dL Calcium 9.3 (8.4-10.2) mg/dL Total Bilirubin 0.7 (0.2-1.3) mg/dL AST 24 (14-36) U/L ALT 29 (9-52) U/L Alkaline Phosphatase 89 (38-126) U/L Troponin I (0.000-0.034) ng/mL Total Protein 7.4 (6.3-8.2) g/dL Albumin 4.4 (3.5-5.0) g/dL Amylase 36 (30-110) U/L Lipase 178 (23-300) U/L Urine Color Urine Appearance (Clear) Urine pH (5.0-8.0) Ur Specific [place] (1.001-1.035) Urine Protein (Negative) Urine Glucose (UA) (Negative) Urine Ketones (Negative) Urine Blood (Negative) Urine Nitrite (Negative) Urine Bilirubin (Negative) Urine Urobilinogen (<2.0) mg/dL Ur Leukocyte Esterase (Negative) Urine RBC (0-5) /hpf Urine WBC (0-5) /hpf Ur Squamous Epith Cells (0-4) /hpf Urine Bacteria (None) /hpf Urine Mucus (None) /hpf 10/29/17 10/29/17 Range/Units 20:47 20:47 WBC (3.8-10.6) k/uL RBC (3.80-5.40) m/uL Hgb (11.4-16.0) gm/dL Hct (34.0-46.0) % MCV (80.0-100.0) fL MCH (25.0-35.0) pg MCHC (31.0-37.0) g/dL RDW (11.5-15.5) % Plt Count (150-450) k/uL Neutrophils % % Lymphocytes % % Monocytes % % Eosinophils % % Basophils % % Neutrophils # (1.3-7.7) k/uL Lymphocytes # (1.0-4.8) k/uL Monocytes # (0-1.0) k/uL Eosinophils # (0-0.7) k/uL Basophils # (0-0.2) k/uL PT (9.0-12.0) sec INR (<1.2) APTT (22.0-30.0) sec Sodium (137-145) mmol/L Potassium (3.5-5.1) mmol/L Chloride (98-107) mmol/L Carbon Dioxide (22-30) mmol/L Anion Gap mmol/L BUN (7-17) mg/dL Creatinine (0.52-1.04) mg/dL Est GFR (CKD-EPI)AfAm (>60 ml/min/1.73 sqM) Est GFR (CKD-EPI)NonAf (>60 ml/min/1.73 sqM) Glucose (74-99) mg/dL Calcium (8.4-10.2) mg/dL Total Bilirubin (0.2-1.3) mg/dL AST (14-36) U/L ALT (9-52) U/L Alkaline Phosphatase (38-126) U/L Troponin I <0.012 (0.000-0.034) ng/mL Total Protein (6.3-8.2) g/dL Albumin (3.5-5.0) g/dL Amylase (30-110) U/L Lipase (23-300) U/L Urine Color Yellow Urine Appearance Cloudy H (Clear) Urine pH 6.0 (5.0-8.0) Ur Specific [place] 1.019 (1.001-1.035) Urine Protein Negative (Negative) Urine Glucose (UA) Negative (Negative) Urine Ketones Negative (Negative) Urine Blood Negative (Negative) Urine Nitrite Negative (Negative) Urine Bilirubin Negative (Negative) Urine Urobilinogen 4.0 (<2.0) mg/dL Ur Leukocyte Esterase Negative (Negative) Urine RBC <1 (0-5) /hpf Urine WBC 1 (0-5) /hpf Ur Squamous Epith Cells 6 H (0-4) /hpf Urine Bacteria Rare H (None) /hpf Urine Mucus Rare H (None) /hpf 10/29/17 22:31 EKG shows normal sinus rhythm. Possible lateral infarct. Abnormal EKG noted. Ventricular rate of 77 beats were minute. DE interval is 148. QRS duration 88. QT QTC 376/425 ms. - Radiology Data Radiology results: report reviewed X-ray shows cardiomegaly no acute lung disease. No heart failure. Possible thoracic aortic aneurysm. No significant change compared to old exam. Ct shows Minimal fat stranding around the proximal sigmoid colon consistent with focal colitis and diverticulitis. Disposition Clinical Impression: Diverticulitis, Abnormal CXR Disposition: HOME SELF-CARE Condition: Good Instructions: Diverticulitis (ED) Additional Instructions: Patient should follow-up with primary care provider within the next 1-2 days for reevaluation for diverticulitis and the abnormal chest x-ray finding, question thoracic aneurysm. There is no change from the previous chest x-ray however. Patient should take the antibiotics as prescribed. Return to the emergency department if any alarming signs or symptoms occur. Prescriptions: Bisacodyl [Dulcolax] 10 mg PO ONCE #12 tablet. Ciprofloxacin HCl [Cipro] 500 mg PO Q12HR 10 Days tab HYDROcodone/APAP 5-325MG [[place] 5] 1 each PO Q6HR PRN #12 tab PRN Reason: Pain metroNIDAZOLE [Flagyl] 500 mg PO TID #30 tab Is patient prescribed a controlled substance at d/c from ED?: No If prescribed controlled substance>3 days was MAPS reviewed?: No When asked, does pt state using other controlled substances?: No Referrals: Nikki Soto MD [Primary Care Provider] - 1-2 days Time of Disposition: 22:48
[2017-10-29 21:23] LABS: Appearance,Urine Cloudy (Clear); Bacteria,Urine Rare /hpf; Bilirubin,Urine Negative (Negative); Blood,Urine Negative (Negative); Color,Urine Yellow; Glucose,Urine (UA) Negative (Negative); Ketones,Urine Negative (Negative); Leukocyte Esterase,Urine Negative (Negative); Mucus,Urine Rare /hpf; Nitrite,Urine Negative (Negative); Protein,Urine Negative (Negative); RBC,Urine <1 /hpf (0-5); Specific Gravity,Urine 1.019 (1.001-1.035); Squamous Epithelial Cell,Urine 6 /hpf (0-4); WBC,Urine 1 /hpf (0-5)
--- NOTE | 2017-10-29 21:23 | XR ---
EXAMINATION TYPE: XR chest 2V DATE OF EXAM: 10/29/2017 COMPARISON: 08/19/2017 HISTORY: Left-sided pain TECHNIQUE: Frontal and lateral views of the chest are obtained. FINDINGS: There is no heart failure nor confluent pneumonic infiltrate. Heart appears enlarged. Ther e are chest leads. Costophrenic angles are clear. Bony thorax is intact. There is possible enlargemen t of the descending thoracic aorta. IMPRESSION: Cardiomegaly. No acute lung disease. No heart failure. Possible thoracic aortic aneurysm . No significant change compared to old exam.
[2017-10-29 21:29] LABS: ALT 29 U/L (9-52); AST 24 U/L (14-36); Albumin 4.4 g/dL (3.5-5.0); Alkaline Phosphatase 89 U/L (38-126); Amylase 36 U/L (30-110); Anion Gap 15 mmol/L; Basophils % (A) 0 %; Blood Urea Nitrogen 11 mg/dL (7-17); Calcium 9.3 mg/dL (8.4-10.2); Carbon Dioxide 28 mmol/L (22-30); Chloride 99 mmol/L (98-107); Eosinophils # (A) 0.1 k/uL (0-0.7); Eosinophils % (A) 4 %; Glucose 141 mg/dL (74-99); HCT 35.7 % (34.0-46.0); Lipase 178 U/L (23-300); Lymphocytes # (A) 1.3 k/uL (1.0-4.8); Lymphocytes % (A) 36 %; MCH 31.4 pg (25.0-35.0); MCHC 33.7 g/dL (31.0-37.0); MCV 93.3 fL (80.0-100.0); Mean Platelet Volume 6.8; Monocytes # (A) 0.2 k/uL (0-1.0); Monocytes % (A) 5 %; Neutrophils # (A) 1.9 k/uL (1.3-7.7); Neutrophils % (A) 52 %; Platelet Count 245 k/uL (150-450); RBC 3.82 m/uL (3.80-5.40); Sodium 142 mmol/L (137-145); Total Bilirubin 0.7 mg/dL (0.2-1.3); Total Protein 7.4 g/dL (6.3-8.2); WBC 3.7 k/uL (3.8-10.6)
[2017-10-29 21:34] LABS: Prothrombin Time 9.6 sec (9.0-12.0)
[2017-10-29 21:40] LABS: Partial Thromboplastin Time 21.2 sec (22.0-30.0)
--- NOTE | 2017-10-29 22:23 | CT ---
EXAMINATION TYPE: CT abdomen pelvis w con DATE OF EXAM: 10/29/2017 COMPARISON: NONE HISTORY: Left side abd pain. CT DLP: 2471.7 mGycm Automated exposure control for dose reduction was used. TECHNIQUE: Helical acquisition of images was performed from the lung bases through the pelvis. CONTRAST: Performed without Oral Contrast and with IV Contrast, patient injected with 100ml mL of Isovue 300. FINDINGS: Lung bases are clear of consolidation. There is no pleural effusion. There is no pericardia l effusion. Heart is probably enlarged. There is slight decreased density in the liver consistent with fatty infiltration. Spleen and pancrea s appear normal. Bile ducts are not dilated. Gallbladder appears normal. There is no adrenal mass. Kidneys show satisfactory contrast opacification. There is no hydronephrosi s. There is no retroperitoneal adenopathy. There is no ascites. Ureters are not dilated. Bladder distends smoothly. There is minimal fat stranding around the junction of descending colon and sigmoid colon. I see no significant diverticular disease. Appendix appears normal. I see no intestin al wall thickening. The bony structures are intact. Uterus is retroverted. There is no sign of free a ir. IMPRESSION: MILD CARDIOMEGALY. FATTY INFILTRATION OF THE LIVER. MINIMAL FAT STRANDING AROUND THE PROXIMAL SIGMOID COLON CONSISTENT WITH FOCAL COLITIS OR DIVERTICULIT IS.
[2017-10-29] MEDS ORDERED: CIPROFLOXACIN HCL 500 MG TAB PO STA (22:47)
[2017-10-29] MEDS ORDERED: metroNIDAZOLE 500 MG TAB PO STA (22:47)
[2017-10-29 23:04] VITALS: BP 136/73; PULSE 68; TEMP 97.9
== END 2017-10-29 23:03 | disposition home or self-care (01) ==
LOC: EC 20:16
DX: K57.92 Diverticulitis of intestine, part unspecified, without perforation or abscess without bleeding (principal); R91.8 Other nonspecific abnormal finding of lung field; I51.7 Cardiomegaly; J02.9 Acute pharyngitis, unspecified; D72.819 Decreased white blood cell count, unspecified; M54.5 Low back pain; E78.5 Hyperlipidemia, unspecified; I10 Essential (primary) hypertension; J45.909 Unspecified asthma, uncomplicated; E11.40 Type 2 diabetes mellitus with diabetic neuropathy, unspecified; D50.9 Iron deficiency anemia, unspecified; E03.9 Hypothyroidism, unspecified; G47.00 Insomnia, unspecified; G89.29 Other chronic pain; K21.9 Gastro-esophageal reflux disease without esophagitis; E66.9 Obesity, unspecified; F32.9 Major depressive disorder, single episode, unspecified; F41.9 Anxiety disorder, unspecified; Z79.51 Long term (current) use of inhaled steroids; Z79.899 Other long term (current) drug therapy; Z88.0 Allergy status to penicillin; Z90.89 Acquired absence of other organs; Z95.9 Presence of cardiac and vascular implant and graft, unspecified; Z68.43 Body mass index [BMI] 50.0-59.9, adult
CPT/HCPCS: 99285; 96374; 96375; 96361 ×2; 36415; 93005; 80053; 82150; 83690; 84484; 85025; 85610; 85730; 81001; 87040; 87086; 71046; 74177; J2270; J2405; Q9967

== ENCOUNTER → 2017-11-12 | Outpatient (CLI) | payer OTHER ==
[2017-11-12 07:36] LABS: Blood Urea Nitrogen 7 mg/dL (7-17)
--- NOTE | 2017-11-12 09:05 | CT ---
EXAMINATION TYPE: CT chest w con DATE OF EXAM: 11/12/2017 COMPARISON: Correlation CT abdomen 10/29/2017 and radiograph 10/29/2017 HISTORY: 52-year-old female Abnormal findings on diagnostic imaging TECHNIQUE: Contiguous axial scanning of the chest after the administration of 100 ml mL of Isovue 300 . Coronal/sagittal reconstructions performed. CT DLP: 842mGycm. Automatic exposure control utilized for a dose reduction. FINDINGS: The heart is borderline enlarged without pericardial effusion. Minimal scattered coronary vessel calc ifications are present. Aortic root borderline ectatic at 3.5 cm. Ascending aorta measures up to 3.4 cm, within normal limits. Conventional arterial vessel branching anatomy. Descending thoracic aorta measures up to 2.2 cm and is mildly tortuous. Scattered nonenlarged mediastinal lymph nodes. Evaluation of the lungs shows mild diffuse bronchial wall thickening and some fine interstitial retic ulations and ground glass nodularity in the superior segment right lower lobe, axial image 25 and sag ittal image 52. Additional nodularity/10 but densities right lower lobe, axial image 34 both peripher ally and posteriorly. No consolidation or pleural effusion. This seems to be low attenuation of the liver on arterial phase imaging suggesting underlying hepatic steatosis. Bones: No osseous destructive process. IMPRESSION: 1. Borderline cardiomegaly. 2. Borderline ectasia of the aortic root at 3.5 cm. The descending thoracic aorta is mildly tortuous. No thoracic aortic aneurysm. 3. Mild diffuse bronchial wall thickening suggests bronchitis or chronic asthma. 4. In addition, there is subtle multifocal patchy groundglass infiltrate and possible tree-in-bud den sities in the right lower lobe. Correlate for infectious bronchiolitis. Distal small airways impactio n with mucoid debris is also possible such as in the setting of asthma. 5. Suspect hepatic steatosis.
== END | disposition home or self-care (01) ==
LOC: RADCTMAIN 07:01
PROVIDERS: ATTEND Family Medicine
DX: I51.7 Cardiomegaly (principal); I77.819 Aortic ectasia, unspecified site; Q25.46 Tortuous aortic arch; J98.09 Other diseases of bronchus, not elsewhere classified; R91.8 Other nonspecific abnormal finding of lung field; J98.8 Other specified respiratory disorders
CPT/HCPCS: 82565; 84520; 71260; 36415; Q9967

== ENCOUNTER 2018-01-04 19:36 | Inpatient (IN) | payer OTHER ==
[2018-01-04] MEDS ORDERED: KETOROLAC 30 MG/ML 1 ML VIAL IVP STA (20:30)
[2018-01-04] MEDS ORDERED: ONDANSETRON 4 MG/2 ML VIAL IVP STA (20:30)
[2018-01-04] MEDS ORDERED: ACETAMINOPHEN TAB 500 MG TAB PO STA (20:30)
[2018-01-04] MEDS ORDERED: LEVOFLOXACIN 750MG-D5W PMX 750 MG in DEXTROSE/WATER 1 150ML.BAG IVPB STA (20:30)
[2018-01-04] MEDS ORDERED: SODIUM CHLORIDE 0.9% 1,000 ML IV ONE (20:32)
[2018-01-04 20:33] LABS: Appearance,Urine Clear (Clear); Bilirubin,Urine Negative (Negative); Blood,Urine Negative (Negative); Color,Urine Yellow; Glucose,Urine (UA) Negative (Negative); Ketones,Urine Negative (Negative); Leukocyte Esterase,Urine Negative (Negative); Nitrite,Urine Negative (Negative); Protein,Urine Negative (Negative); Urobilinogen,Urine <2.0 mg/dL (<2.0)
[2018-01-04 20:34] LABS: HCT 34.9 % (34.0-46.0); HGB 11.4 gm/dL (11.4-16.0); MCH 31.1 pg (25.0-35.0); MCHC 32.6 g/dL (31.0-37.0); MCV 95.3 fL (80.0-100.0); Mean Platelet Volume 7.2; Platelet Count 156 k/uL (150-450); RBC 3.66 m/uL (3.80-5.40); RDW 14.5 % (11.5-15.5); WBC 3.3 k/uL (3.8-10.6)
--- NOTE | 2018-01-04 20:34 | ED ---
Abdominal Pain HPI - General Chief Complaint: Abdominal Pain Stated Complaint: Abd pain,fever Time Seen by Provider: 01/04/18 20:10 Source: patient, RN notes reviewed, old records reviewed Mode of arrival: ambulatory Limitations: no limitations - History of Present Illness Initial Comments: This Patient is a 52-year-old female presents emergency Department chief complaint left-sided abdominal pain for the past 3 days including fevers and chills. She also complains of some increased shortness of breath. She denies any specific chest pain. Does report she's had occasional cough. She states that she has to use inhalers regularly complaint of chronic shortness of breath. Patient states that she's had no vomiting. No bloody stools. She reports the normally does have loose stools. She is treated for diverticulitis proximally 2 months ago. Denies any changes in her diet no travel history. Denies any leg swelling, back pain, peripheral paresthesias, headaches, sore throat, upper respiratory symptoms. - Related Data Home Medications Medication Instructions Recorded Confirmed Escitalopram Oxalate [Lexapro] 30 mg PO QAM 05/04/16 10/29/17 Ferrous Sulfate [Iron (65 MG 325 mg PO DAILY 05/04/16 10/29/17 Elemental)] Omeprazole [PriLOSEC] 20 mg PO AC-BID 05/04/16 10/29/17 Aspirin [Adult Low Dose Aspirin EC] 81 mg PO DAILY 10/26/16 10/29/17 Atorvastatin [Lipitor] 20 mg PO DAILY 10/26/16 10/29/17 Fluticasone Nasal [place] [Flonase 1 spray EA NOSTRIL DAILY 10/26/16 10/29/17 Nasal [place]] Loratadine [Claritin] 10 mg PO DAILY 10/26/16 10/29/17 Zolpidem [Ambien] 10 mg PO HS 10/26/16 10/29/17 Furosemide [Lasix] 20 mg PO BID 08/19/17 10/29/17 Gabapentin [Neurontin] 300 mg PO TID 08/19/17 10/29/17 Levothyroxine Sodium [Synthroid] 125 mcg PO DAILY 08/19/17 10/29/17 Nystatin 100,000 Unit/gm Powd 1 applic TOPICAL BID PRN 08/19/17 10/29/17 [Mycostatin Powder] Potassium Chloride [Klor-Con 20] 20 meq PO BID 08/19/17 10/29/17 Calcium Carbonate/Vitamin D3 1 tab PO DAILY 10/08/17 10/29/17 [Calcium 600-Vit D3 400 Caplet] Metoprolol Tartrate [Lopressor] 50 mg PO BID 10/08/17 10/29/17 Montelukast [Singulair] 10 mg PO HS 10/08/17 10/29/17 Naproxen 500 mg PO DAILY PRN 10/08/17 10/29/17 Albuterol Inhaler [Ventolin Hfa 2 puff INHALATION RT-QID PRN 10/29/17 10/29/17 Inhaler] Budesonide/Formoterol Fumarate 2 puff INHALATION RT-BID 10/29/17 10/29/17 [Symbicort 160-4.5 Mcg Inhaler] Ipratropium-Albuterol Nebulize 3 ml INHALATION RT-QID PRN 10/29/17 10/29/17 [Duoneb 0.5 mg-3 mg/3 ml Soln] busPIRone HCl [Buspar] 5 mg PO BID 10/29/17 10/29/17 Previous Rx's Medication Instructions Recorded traMADol HCL [Ultram] 50 mg PO Q6HR PRN #1 tab 08/23/17 Bisacodyl [Dulcolax] 10 mg PO ONCE #12 tablet. 10/29/17 Ciprofloxacin HCl [Cipro] 500 mg PO Q12HR 10 Days tab 10/29/17 HYDROcodone/APAP 5-325MG [[place] 5] 1 each PO Q6HR PRN #12 tab 10/29/17 metroNIDAZOLE [Flagyl] 500 mg PO TID #30 tab 10/29/17 Allergies Allergy/AdvReac Type Severity Reaction Status Date / Time Penicillins Allergy Rash/Hives Verified 01/04/18 19:46 Review of Systems ROS Statement: Those systems with pertinent positive or pertinent negative responses have been documented in the HPI. ROS Other: All systems not noted in ROS Statement are negative. Past Medical History Past Medical History: Asthma, Diabetes Mellitus, GERD/Reflux, Hyperlipidemia, Hypertension, Thyroid Disorder Additional Past Medical History / Comment(s): Chronic back pain, neuropathy L hand, L hand 2nd and 3rd fingers are "locking up" at times, carpal tunnel, hypothyroid, iron deficiency anemia, insomnia, sinus problems. History of Any Multi-Drug Resistant Organisms: None Reported Past Surgical History: Adenoidectomy, Heart Catheterization, Tonsillectomy, Tubal Ligation Additional Past Surgical History / Comment(s): carpel tunnel right wrist, bilateral cataract removal, bilateral laser eye surgery/lens implants, colonoscopy, epidural injections with last time being 1 week ago. Past Anesthesia/Blood Transfusion Reactions: No Reported Reaction Past Psychological History: Anxiety, Depression Smoking Status: Never smoker Past Alcohol Use History: None Reported Past Drug Use History: None Reported - Past Family History Mother Family Medical History: Cancer Father Family Medical History: No Reported History Additional Family Medical History / Comment(s): Father is living. General Exam - General Exam Comments Initial Comments: This patient's a 32-year-old female. Alert and oriented. No significant distress. Limitations: no limitations General appearance: alert, in no apparent distress Head exam: Present: atraumatic, normocephalic, normal inspection Eye exam: Present: normal appearance, PERRL, EOMI. Absent: scleral icterus, conjunctival injection, periorbital swelling ENT exam: Present: normal exam, mucous membranes moist Neck exam: Present: normal inspection. Absent: tenderness, meningismus, lymphadenopathy Respiratory exam: Present: decreased breath sounds. Absent: normal lung sounds bilaterally, respiratory distress, wheezes, rales, rhonchi, stridor Cardiovascular Exam: Present: regular rate, normal rhythm, normal heart sounds. Absent: systolic murmur, diastolic murmur, rubs, gallop, clicks GI/Abdominal exam: Present: soft, tenderness (Left lower quadrant tenderness.), normal bowel sounds. Absent: distended, guarding, rebound, rigid Extremities exam: Present: normal inspection, full ROM, normal capillary refill. Absent: tenderness, pedal edema, joint swelling, calf tenderness Back exam: Present: normal inspection Neurological exam: Present: alert, oriented X3, CN II-XII intact Psychiatric exam: Present: normal affect, normal mood Skin exam: Present: warm, dry, intact, normal color. Absent: rash Course Vital Signs 01/04/18 01/04/18 01/04/18 19:44 20:16 21:32 Temperature 100.2 F H 103.4 F H 101.8 F H Pulse Rate 94 100 88 Respiratory 18 22 18 Rate Blood Pressure 150/85 143/63 141/78 O2 Sat by Pulse 97 93 L 99 Oximetry Medical Decision Making - Medical Decision Making This 52-year-old female present with 3 days of fever or chills, reports increased shortness of breath cough. She also concern for left-sided abdominal pain concerning for diverticulitis. At this time patient's labwork was reviewed. Does have a mildly elevated lactic acid of 2.2. She dry with fever 103% on room air. When he Patient she did become hypoxic 85% on room air. We did Patient the Patient on 2 L of oxygen. Patient chest x-ray was reviewed and normal. Our CT and pelvis was completed with contrast to rule out diverticulitis or abdominal sources of infection. They do not see any signs of diverticulitis but she does have evidence of pneumonia. I did start the Patient on Levaquin. We'll start the Patient on breathing treatments and steroids and antibiotics. Discussed case with Dr. Craig. - Lab Data Result diagrams: 01/04/18 20:00 01/04/18 20:00 Lab Results 01/04/18 01/04/18 01/04/18 Range/Units 20:00 20:00 20:00 WBC 3.3 L (3.8-10.6) k/uL RBC 3.66 L (3.80-5.40) m/uL Hgb 11.4 (11.4-16.0) gm/dL Hct 34.9 (34.0-46.0) % MCV 95.3 (80.0-100.0) fL MCH 31.1 (25.0-35.0) pg MCHC 32.6 (31.0-37.0) g/dL RDW 14.5 (11.5-15.5) % Plt Count 156 (150-450) k/uL Neutrophils % (Manual) 40 % Lymphocytes % (Manual) 41 % Monocytes % (Manual) 19 % Neutrophils # (Manual) 1.32 (1.3-7.7) k/uL Lymphocytes # (Manual) 1.35 (1.0-4.8) k/uL Monocytes # (Manual) 0.63 (0-1.0) k/uL Nucleated RBCs 0 (0-0) /100 WBC Manual Slide Review Performed RBC Morphology Normal PT (9.0-12.0) sec INR (<1.2) APTT (22.0-30.0) sec Sodium 138 (137-145) mmol/L Potassium 4.2 (3.5-5.1) mmol/L Chloride 104 (98-107) mmol/L Carbon Dioxide 23 (22-30) mmol/L Anion Gap 11 mmol/L BUN 6 L (7-17) mg/dL Creatinine 0.60 (0.52-1.04) mg/dL Est GFR (CKD-EPI)AfAm >90 (>60 ml/min/1.73 sqM) Est GFR (CKD-EPI)NonAf >90 (>60 ml/min/1.73 sqM) Glucose 197 H (74-99) mg/dL Plasma Lactic Acid Bereket (0.7-2.0) mmol/L Calcium 9.2 (8.4-10.2) mg/dL Total Bilirubin 1.1 (0.2-1.3) mg/dL AST 28 (14-36) U/L ALT 33 (9-52) U/L Alkaline Phosphatase 82 (38-126) U/L Total Creatine Kinase 49 (30-135) U/L CK-MB (CK-2) <0.2 (0.0-2.4) ng/mL CK-MB (CK-2) Rel Index Troponin I <0.012 (0.000-0.034) ng/mL Total Protein 7.2 (6.3-8.2) g/dL Albumin 4.1 (3.5-5.0) g/dL Urine Color Urine Appearance (Clear) Urine pH (5.0-8.0) Ur Specific [place] (1.001-1.035) Urine Protein (Negative) Urine Glucose (UA) (Negative) Urine Ketones (Negative) Urine Blood (Negative) Urine Nitrite (Negative) Urine Bilirubin (Negative) Urine Urobilinogen (<2.0) mg/dL Ur Leukocyte Esterase (Negative) 01/04/18 01/04/18 01/04/18 Range/Units 20:00 20:00 20:00 WBC (3.8-10.6) k/uL RBC (3.80-5.40) m/uL Hgb (11.4-16.0) gm/dL Hct (34.0-46.0) % MCV (80.0-100.0) fL MCH (25.0-35.0) pg MCHC (31.0-37.0) g/dL RDW (11.5-15.5) % Plt Count (150-450) k/uL Neutrophils % (Manual) % Lymphocytes % (Manual) % Monocytes % (Manual) % Neutrophils # (Manual) (1.3-7.7) k/uL Lymphocytes # (Manual) (1.0-4.8) k/uL Monocytes # (Manual) (0-1.0) k/uL Nucleated RBCs (0-0) /100 WBC Manual Slide Review RBC Morphology PT 10.1 (9.0-12.0) sec INR 1.0 (<1.2) APTT 22.2 (22.0-30.0) sec Sodium (137-145) mmol/L Potassium (3.5-5.1) mmol/L Chloride (98-107) mmol/L Carbon Dioxide (22-30) mmol/L Anion Gap mmol/L BUN (7-17) mg/dL Creatinine (0.52-1.04) mg/dL Est GFR (CKD-EPI)AfAm (>60 ml/min/1.73 sqM) Est GFR (CKD-EPI)NonAf (>60 ml/min/1.73 sqM) Glucose (74-99) mg/dL Plasma Lactic Acid Bereket 2.2 H* (0.7-2.0) mmol/L Calcium (8.4-10.2) mg/dL Total Bilirubin (0.2-1.3) mg/dL AST (14-36) U/L ALT (9-52) U/L Alkaline Phosphatase (38-126) U/L Total Creatine Kinase (30-135) U/L CK-MB (CK-2) (0.0-2.4) ng/mL CK-MB (CK-2) Rel Index Troponin I (0.000-0.034) ng/mL Total Protein (6.3-8.2) g/dL Albumin (3.5-5.0) g/dL Urine Color Yellow Urine Appearance Clear (Clear) Urine pH 7.0 (5.0-8.0) Ur Specific [place] 1.010 (1.001-1.035) Urine Protein Negative (Negative) Urine Glucose (UA) Negative (Negative) Urine Ketones Negative (Negative) Urine Blood Negative (Negative) Urine Nitrite Negative (Negative) Urine Bilirubin Negative (Negative) Urine Urobilinogen <2.0 (<2.0) mg/dL Ur Leukocyte Esterase Negative (Negative) 01/04/18 20:54 EKG performed at 2020 sinus rhythm, ST abnormality. Ventricular rate of 94 bpm. Was 134 ms. QRS duration 84 ms. QT QTc is 326/470 seconds. Noticed this elevation or T-wave inversion. - Radiology Data Radiology results: report reviewed Chest x-ray shows cardiomegaly with chronic changes without suspicious infiltrate. Multifocal on glass opacities in the lung bases could reflect multifocal pneumonia correlate clinically. Attention uterus abnormal prominence of the central endometrium could represent Trapped Fluid in the Endometrial Canal Abnormal Thickening Cannot Be Excluded. Otherwise nonemergent pelvic ultrasound to further assess. Disposition Clinical Impression: Pneumonia, Abdominal pain Disposition: ADMITTED IP TO THIS HOSP Condition: Stable Is patient prescribed a controlled substance at d/c from ED?: No When asked, does pt state using other controlled substances?: No If prescribed controlled substance>3 days was MAPS reviewed?: No If opioid is for acute pain is fill amount 7 days or less?: No If Rx opioid, was Start Talking consent form obtained?: No Referrals: Nikki Soto MD [Primary Care Provider] - 1-2 days Time of Disposition: 22:11
[2018-01-04 20:39] LABS: Partial Thromboplastin Time 22.2 sec (22.0-30.0); Prothrombin Time 10.1 sec (9.0-12.0)
[2018-01-04 20:44] LABS: Nucleated Red Blood Cells 0 /100 WBC (0-0)
[2018-01-04] MEDS ORDERED: SODIUM CHLORIDE 0.9% 1,000 ML IV SCH (20:45)
[2018-01-04 20:47] LABS: ALT 33 U/L (9-52); AST 28 U/L (14-36); Albumin 4.1 g/dL (3.5-5.0); Alkaline Phosphatase 82 U/L (38-126); Anion Gap 11 mmol/L; Blood Urea Nitrogen 6 mg/dL (7-17); Calcium 9.2 mg/dL (8.4-10.2); Carbon Dioxide 23 mmol/L (22-30); Chloride 104 mmol/L (98-107); Glucose 197 mg/dL (74-99); Lymphocytes # (M) 1.35 k/uL (1.0-4.8); Monocytes # (M) 0.63 k/uL (0-1.0); Neutrophils # (M) 1.32 k/uL (1.3-7.7); Neutrophils % (M) 40 %; Potassium 4.2 mmol/L (3.5-5.1); Sodium 138 mmol/L (137-145); Total Bilirubin 1.1 mg/dL (0.2-1.3); Total Cells Counted 100; Total Protein 7.2 g/dL (6.3-8.2)
[2018-01-04 20:55] LABS: Creatine Kinase 49 U/L (30-135)
--- NOTE | 2018-01-04 20:56 | XR ---
EXAMINATION TYPE: XR chest 2V DATE OF EXAM: 01/04/2018 COMPARISON: Chest CT November 12, 2017. 2 view chest x-ray November 10, 2017. HISTORY: Chest pain for order. Body aches and fever. TECHNIQUE: Frontal and lateral views of the chest are obtained. FINDINGS: There is chronic parenchymal change without suspicious focal air space opacity, pleural ef fusion, or pneumothorax seen. The cardiac silhouette size remains enlarged. The osseous structures are intact. IMPRESSION: Cardiomegaly and chronic changes without suspicious acute infiltrate.
[2018-01-04 21:08] LABS: Creatine Kinase MB <0.2 ng/mL (0.0-2.4); Troponin I <0.012 ng/mL (0.000-0.034)
--- NOTE | 2018-01-04 21:36 | CT ---
EXAMINATION TYPE: CT abdomen pelvis w con DATE OF EXAM: 01/04/2018 HISTORY: Fever and body aches CT DLP: 3538.9mGycm Automated Exposure Control for Dose Reduction was Utilized. CONTRAST: CT scan of the abdomen and pelvis is performed without oral but with IV Contrast, patient injected wi th 100 mL of Isovue 300. COMPARISON: CT abdomen and pelvis from November 10, 2017 FINDINGS: LUNG BASES: Cardiomegaly is present. There are new multifocal areas of groundglass opacity in both dang ng reyna could reflect edema and/or infiltrates LIVER/GB: Liver is diffusely low dense consistent with fatty infiltration. PANCREAS: There is moderate fat replacement of atrophy involving inferior pancreatic head and uncinat e process. SPLEEN: No significant abnormality is seen. ADRENALS: No significant abnormality is seen. KIDNEYS: No significant abnormality is seen. BOWEL: No significant abnormality is seen. UTERUS/ADNEXA: Markedly retroverted uterus is seen. There is suspicious 1.6 cm prominence or thickeni ng of the low density central endometrium. LYMPH NODES: No greater than 1cm abdominal or pelvic lymph nodes are appreciated. OSSEOUS STRUCTURES: There is transitional-type vertebra at lumbosacral junction. There is moderate di sc space narrowing of the L5 L6 level. OTHER: No significant additional abnormality is seen. IMPRESSION: 1. New multifocal groundglass opacities in lung bases could reflect new multifocal pneumonia, correla te clinically. 2. Attention to uterus, abnormal prominence of central endometrium could reflect trapped fluid in end ometrial canal, abnormal thickening cannot be excluded. Advise nonemergent pelvic ultrasound follow-u p to further assess.
[2018-01-04] MEDS ORDERED: PNEUMONIA PROTOCOL UTILIZED 1 EACH MISC PO PRN (22:11)
[2018-01-04] MEDS ORDERED: IBUPROFEN 400 MG TAB PO PRN (22:46)
[2018-01-05] MEDS ORDERED: NYSTATIN 100,000 UNIT/GM POWD 15 GM TOPICAL PRN (02:13)
[2018-01-05] MEDS ORDERED: IPRATROPIUM-ALBUTEROL 3 ML NEB INHALATION PRN (02:13)
[2018-01-05] MEDS ORDERED: NAPROXEN 250 MG TAB PO PRN (02:13)
[2018-01-05] MEDS ORDERED: traMADol 50 MG TAB PO PRN (02:13)
[2018-01-05] MEDS: LEVOTHYROXINE 125 MCG TAB PO SCH (06:03)
[2018-01-05] MEDS: SODIUM CHLORIDE 0.9% 1,000 ML IV SCH (06:13)
[2018-01-05 07:18] LABS: Glucose,Whole Blood 183 mg/dL (75-99)
[2018-01-05] MEDS: INSULIN ASPART 100 UNIT/ML 1 ML 10 ML VIAL SQ SCH ×4 (08:40→21:24)
[2018-01-05] MEDS: AZITHROMYCIN 500 MG in DEXTROSE 5% IN WATER 250 ML IVPB SCH ×2 (08:44)
[2018-01-05] MEDS: ONDANSETRON 4 MG/2 ML VIAL IVP PRN (08:44)
[2018-01-05 09:11] LABS: HCT 33.5 % (34.0-46.0); HGB 10.8 gm/dL (11.4-16.0); MCH 31.1 pg (25.0-35.0); MCHC 32.4 g/dL (31.0-37.0); MCV 96.1 fL (80.0-100.0); Mean Platelet Volume 7.5; Platelet Count 111 k/uL (150-450); RBC 3.49 m/uL (3.80-5.40); RDW 14.1 % (11.5-15.5); WBC 2.5 k/uL (3.8-10.6)
[2018-01-05] MEDS: SYMBICORT 160-4.5 MCG INHALER INHALATION SCH ×2 (09:24→20:18)
[2018-01-05 10:26] LABS: Band Neutrophils % 1 %; Basophils # (M) 0.03 k/uL (0-0.2); Blast Cells # (M) 0.25 k/uL (0); Lymphocytes # (M) 0.63 k/uL (1.0-4.8); Monocytes # (M) 0.75 k/uL (0-1.0); Neutrophils % (M) 35 %; Nucleated Red Blood Cells 0 /100 WBC (0-0); Total Cells Counted 200
[2018-01-05] MEDS: CALCIUM CARB-VIT D 500MG-200UN 1 EACH TAB PO SCH (11:02)
[2018-01-05] MEDS: FERROUS SULFATE 325 MG TAB PO SCH (11:02)
[2018-01-05] MEDS: ASPIRIN 81 MG PO SCH (11:02)
[2018-01-05] MEDS: ATORVASTATIN 20 MG TAB PO SCH (11:02)
[2018-01-05] MEDS: FLUTICASONE 50MCG/SPRAY NASAL 16GM EA NOSTRIL SCH (11:03)
[2018-01-05] MEDS: GABAPENTIN 300 MG CAP PO SCH ×3 (11:03→21:21)
[2018-01-05] MEDS: ACETAMINOPHEN TAB 325 MG TAB PO PRN ×2 (11:11→22:45)
[2018-01-05] MEDS: POTASSIUM CHLORIDE ER 20 MEQ TAB.ER PO SCH ×2 (11:11→21:21)
[2018-01-05] MEDS: FUROSEMIDE 20 MG TAB PO SCH ×2 (11:11→21:21)
[2018-01-05] MEDS: HEPARIN SODIUM,PORCINE 5,000 UNIT/ML 1 ML VIAL SQ SCH ×2 (11:11→18:34)
[2018-01-05] MEDS: ESCITALOPRAM 10 MG TAB PO SCH (11:11)
[2018-01-05] MEDS: PANTOPRAZOLE 40 MG TABLET PO SCH ×2 (11:12→18:34)
[2018-01-05] MEDS: busPIRone HCl 5 MG TAB PO SCH ×2 (11:12→21:21)
[2018-01-05] MEDS: LORATADINE 10 MG TAB PO SCH (11:12)
[2018-01-05] MEDS: METOPROLOL TARTRATE 50 MG TAB PO SCH ×2 (11:12→21:21)
[2018-01-05 12:06] LABS: Glucose,Whole Blood 218 mg/dL (75-99)
[2018-01-05] MEDS: cefTRIAXone IN SWFI 1,000 MG/10 ML SYRINGE IVP SCH (13:09)
--- NOTE | 2018-01-05 13:22 | P.HPIM ---
History of Present Illness H&P Date: 01/05/18 Chief Complaint: Abdominal pain and fever Patient is a 53-year-old male with a known history of hypertension, diabetes type II and previous history of diverticulitis came to ER with complaints of left-sided abdominal pain along with fever and chills worsening for the past 3 days. Patient was also having increased shortness of breath and chest pain with deep breathing. Patient does have cough but without much sputum production. No nausea vomiting. No diarrhea. Patient thought that she was having diverticulitis again and came to the hospital for further evaluation. Patient had diverticular [place] 2 months ago. Denied any sick contacts. No travel. Patient felt generally weak and generalized body aches. Patient was febrile on admission. Denies any leg swelling, back pain, peripheral paresthesias, headaches, sore throat, upper respiratory symptoms. T-max 101.8 Chest x-ray showed cardiomegaly and chronic changes without suspicious acute infiltrate. CT of abdomen pelvis showed new multifocal groundglass opacities in the lung base could reflect new multifocal pneumonia. Correlate clinically Attention to her uterus abnormal prominence of the central endometrium could reflect trapped fluid in the endometrial canal., Abnormal thickening cannot be excluded. Advise nonemergent pelvic ultrasound follow-up tofurther assess. Review of Systems Constitutional: Patient does have fever and chills and muscle aches and generalized body weakness Abdomen: Patient denied nausea vomiting. Patient does have abdominal pain. Cardiovascular: Patient denies any chest pain or short of breath no palpitations. Respiratory: Cough without sputum production. Patient does have shortness of breath Neurologic: Patient denied any numbness or tingling headache. Musculoskeletal: Patient denies any complaints of joint swelling or deformity. Skin: Negative Psychiatric: Negative Endocrine: No heat or cold intolerance. No recent weight gain. Genitourinary: No dysuria or hematuria. All other 14 point ROS negative except the above Past Medical History Past Medical History: Asthma, Diabetes Mellitus, GERD/Reflux, Hyperlipidemia, Hypertension, Thyroid Disorder Additional Past Medical History / Comment(s): Chronic back pain, neuropathy L hand, L hand 2nd and 3rd fingers are "locking up" at times, carpal tunnel right hand, hypothyroid, iron deficiency anemia, insomnia, sinus problems; pt recently diagnosed with diverticulitis History of Any Multi-Drug Resistant Organisms: None Reported Past Surgical History: Adenoidectomy, Heart Catheterization, Tonsillectomy, Tubal Ligation Additional Past Surgical History / Comment(s): carpel tunnel right wrist, bilateral cataract removal, bilateral laser eye surgery/lens implants, colonoscopy, epidural injections with last time being 1 week ago. Past Anesthesia/Blood Transfusion Reactions: No Reported Reaction Past Psychological History: Anxiety, Depression Additional Psychological History / Comment(s): Pt states her anxiety and depression are managed with her medications. She lives alone and is independent. No experience. No international travel. Pet dogs in the home cared for by significant other. Is not a current tobacco smoker or significant alcohol user Smoking Status: Never smoker Past Alcohol Use History: None Reported Past Drug Use History: None Reported - Past Family History Mother Family Medical History: Cancer Father Family Medical History: No Reported History Additional Family Medical History / Comment(s): Father is living. Medications and Allergies Home Medications Medication Instructions Recorded Confirmed Type Escitalopram Oxalate [Lexapro] 30 mg PO QAM 05/04/16 01/05/18 History Ferrous Sulfate [Iron (65 MG 325 mg PO DAILY 05/04/16 01/05/18 History Elemental)] Omeprazole [PriLOSEC] 20 mg PO AC-BID 05/04/16 01/05/18 History Aspirin [Adult Low Dose Aspirin EC] 81 mg PO DAILY 10/26/16 01/05/18 History Atorvastatin [Lipitor] 20 mg PO DAILY 10/26/16 01/05/18 History Fluticasone Nasal [place] [Flonase 1 spray EA NOSTRIL DAILY 10/26/16 01/05/18 History Nasal [place]] Loratadine [Claritin] 10 mg PO DAILY 10/26/16 01/05/18 History Zolpidem [Ambien] 10 mg PO HS 10/26/16 01/05/18 History Furosemide [Lasix] 20 mg PO BID 08/19/17 01/05/18 History Gabapentin [Neurontin] 300 mg PO TID 08/19/17 01/05/18 History Levothyroxine Sodium [Synthroid] 125 mcg PO DAILY 08/19/17 01/05/18 History Nystatin 100,000 Unit/gm Powd 1 applic TOPICAL BID PRN 08/19/17 01/05/18 History [Mycostatin Powder] Potassium Chloride [Klor-Con 20] 20 meq PO BID 08/19/17 01/05/18 History traMADol HCL [Ultram] 50 mg PO Q6HR PRN #1 tab 08/23/17 01/05/18 Rx Calcium Carbonate/Vitamin D3 1 tab PO DAILY 10/08/17 01/05/18 History [Calcium 600-Vit D3 400 Caplet] Metoprolol Tartrate [Lopressor] 50 mg PO BID 10/08/17 01/05/18 History Montelukast [Singulair] 10 mg PO HS 10/08/17 01/05/18 History Naproxen 500 mg PO DAILY PRN 10/08/17 01/05/18 History Albuterol Inhaler [Ventolin Hfa 2 puff INHALATION RT-QID PRN 10/29/17 01/05/18 History Inhaler] Budesonide/Formoterol Fumarate 2 puff INHALATION RT-BID 10/29/17 01/05/18 History [Symbicort 160-4.5 Mcg Inhaler] Ipratropium-Albuterol Nebulize 3 ml INHALATION RT-QID PRN 10/29/17 01/05/18 History [Duoneb 0.5 mg-3 mg/3 ml Soln] busPIRone HCl [Buspar] 5 mg PO BID 10/29/17 01/05/18 History Allergies Allergy/AdvReac Type Severity Reaction Status Date / Time Penicillins Allergy Rash/Hives Verified 01/05/18 13:18 Physical Exam Vitals: Vital Signs Temp Pulse Pulse Resp BP BP Pulse Ox 01/05/18 05:40 99.0 F 81 16 124/59 94 L 01/04/18 23:00 99.4 F 84 16 142/69 94 L 01/04/18 22:42 100.4 F H 82 18 147/87 94 L 01/04/18 21:32 101.8 F H 88 18 141/78 99 01/04/18 20:16 103.4 F H 100 22 143/63 93 L 01/04/18 19:44 100.2 F H 94 18 150/85 97 Intake and Output 01/04/18 01/05/18 01/05/18 22:59 06:59 14:59 Other: # Voids 3 Weight 135.896 kg PHYSICAL EXAMINATION: Patient is lying in the bed comfortably, no acute distress, awake alert and oriented.. HEENT: Normocephalic. Neck is supple. Pupils reactive. Nostrils clear. Oral cavity is moist. Ears reveal no drainage. Neck reveals no JVD, carotid bruits, or thyromegaly. CHEST EXAMINATION: Trachea is central. Symmetrical expansion. Lung reyna clear to auscultation and percussion. CARDIAC: Normal S1, S2 with no gallops. No murmurs ABDOMEN: Soft. Bowel sounds normal. No organomegaly. No abdominal bruits. Extremities: reveal no edema. No clubbing or cyanosis Neurologically awake, alert, oriented x3 with well-coordinated movements. No focal deficits noted Skin: No rash or skin lesions. Psychiatric: Coperative. Nonsuicidal Musculoskeletal: No joint swelling or deformity. Normal range of motion. Results CBC & Chem 7: 01/05/18 08:50 01/04/18 20:00 Labs: Abnormal Lab Results - Last 24 Hours (Table) 01/04/18 01/04/18 01/04/18 Range/Units 20:00 20:00 20:00 WBC 3.3 L (3.8-10.6) k/uL RBC 3.66 L (3.80-5.40) m/uL BUN 6 L (7-17) mg/dL Glucose 197 H (74-99) mg/dL POC Glucose (mg/dL) (75-99) mg/dL Plasma Lactic Acid Bereket 2.2 H* (0.7-2.0) mmol/L 01/05/18 Range/Units 07:01 WBC (3.8-10.6) k/uL RBC (3.80-5.40) m/uL BUN (7-17) mg/dL Glucose (74-99) mg/dL POC Glucose (mg/dL) 183 H (75-99) mg/dL Plasma Lactic Acid Bereket (0.7-2.0) mmol/L Thrombosis Risk Factor Assmnt - DVT/VTE Prophylaxis DVT/VTE Prophylaxis: Pharmacologic Prophylaxis ordered - Choose All That Apply Any of the Below Risk Factors Present?: Yes Each Factor Represents 1 point: Abnormal pulmonary function (COPD), Obesity ( BMI >25), Swollen legs (current) Other Risk Factors: No Thrombosis Risk Factor Assessment Total Risk Factor Score: 3 Thrombosis Risk Factor Assessment Level: Moderate Risk Assessment and Plan Assessment: Sepsis secondary to bibasilar multifocal pneumonia. Lactic acidosis 2.1 admission resolved now Pancytopenia. Patient is being worked up for leukemia and Dr. Atkinson's office Abdominal pain possibly related to coughing. Resolved now Asthma Hypertension Hyperlipidemia Hypothyroidism Chronic back pain Iron deficiency anemia Recent history of acute diverticulitis Anxiety and depression\\ Morbid obesity with BMI 54.8 DVT prophylaxis plan: patient will be continued on antibiotics in the form of ceftriaxone and azithromycin. Patient was given a dose of Levaquin while in the ER. Follow blood cultures and continue with home medications. Further recommendations based on the clinical course. Patient follows with hematology clinic and is scheduled for bone marrow biopsy due to pancytopenia. Continue to follow closely. Fever is trending down. Time with Patient: Greater than 30
[2018-01-05 17:23] LABS: Glucose,Whole Blood 138 mg/dL (75-99)
[2018-01-05 21:08] LABS: Glucose,Whole Blood 153 mg/dL (75-99)
[2018-01-05] MEDS: MONTELUKAST 10 MG TAB PO SCH (21:21)
[2018-01-05] MEDS: ZOLPIDEM 10 MG TAB PO SCH (21:23)
[2018-01-06] MEDS: HEPARIN SODIUM,PORCINE 5,000 UNIT/ML 1 ML VIAL SQ SCH ×4 (00:08→22:10)
[2018-01-06] MEDS: SODIUM CHLORIDE 0.9% 1,000 ML IV SCH (06:16)
[2018-01-06] MEDS: LEVOTHYROXINE 125 MCG TAB PO SCH (06:17)
[2018-01-06 07:39] LABS: Glucose,Whole Blood 161 mg/dL (75-99)
[2018-01-06] MEDS: cefTRIAXone IN SWFI 1,000 MG/10 ML SYRINGE IVP SCH (08:23)
[2018-01-06] MEDS: AZITHROMYCIN 500 MG in DEXTROSE 5% IN WATER 250 ML IVPB SCH ×2 (08:23)
[2018-01-06] MEDS: INSULIN ASPART 100 UNIT/ML 1 ML 10 ML VIAL SQ SCH ×4 (08:23→21:53)
[2018-01-06] MEDS: FLUTICASONE 50MCG/SPRAY NASAL 16GM EA NOSTRIL SCH (08:23)
[2018-01-06] MEDS: ATORVASTATIN 20 MG TAB PO SCH (08:24)
[2018-01-06] MEDS: busPIRone HCl 5 MG TAB PO SCH ×2 (08:24→21:53)
[2018-01-06] MEDS: FERROUS SULFATE 325 MG TAB PO SCH (08:24)
[2018-01-06] MEDS: ESCITALOPRAM 10 MG TAB PO SCH (08:24)
[2018-01-06] MEDS: LORATADINE 10 MG TAB PO SCH (08:24)
[2018-01-06] MEDS: CALCIUM CARB-VIT D 500MG-200UN 1 EACH TAB PO SCH (08:24)
[2018-01-06] MEDS: PANTOPRAZOLE 40 MG TABLET PO SCH ×2 (08:24→17:03)
[2018-01-06] MEDS: FUROSEMIDE 20 MG TAB PO SCH (08:24)
[2018-01-06] MEDS: ASPIRIN 81 MG PO SCH (08:24)
[2018-01-06] MEDS: METOPROLOL TARTRATE 50 MG TAB PO SCH ×2 (08:25→21:54)
[2018-01-06] MEDS: GABAPENTIN 300 MG CAP PO SCH ×3 (08:25→21:54)
[2018-01-06] MEDS: POTASSIUM CHLORIDE ER 20 MEQ TAB.ER PO SCH ×2 (08:25→21:54)
[2018-01-06] MEDS: SYMBICORT 160-4.5 MCG INHALER INHALATION SCH ×2 (08:30→21:18)
[2018-01-06] MEDS: ACETAMINOPHEN TAB 325 MG TAB PO PRN ×2 (08:45→17:03)
[2018-01-06 08:58] LABS: HCT 30.9 % (34.0-46.0); HGB 10.4 gm/dL (11.4-16.0); MCH 32.2 pg (25.0-35.0); MCHC 33.8 g/dL (31.0-37.0); MCV 95.3 fL (80.0-100.0); Mean Platelet Volume 7.5; Platelet Count 123 k/uL (150-450); RBC 3.24 m/uL (3.80-5.40); RDW 14.3 % (11.5-15.5); WBC 2.2 k/uL (3.8-10.6)
[2018-01-06 09:04] LABS: Anion Gap 11 mmol/L; Blood Urea Nitrogen 8 mg/dL (7-17); Calcium 8.7 mg/dL (8.4-10.2); Carbon Dioxide 26 mmol/L (22-30); Chloride 101 mmol/L (98-107); Glucose 168 mg/dL (74-99); Potassium 4.3 mmol/L (3.5-5.1); Sodium 138 mmol/L (137-145)
[2018-01-06 11:05] LABS: Blast Cells # (M) 0.18 k/uL (0); Lymphocytes # (M) 0.79 k/uL (1.0-4.8); Monocytes # (M) 0.42 k/uL (0-1.0); Neutrophils # (M) 0.84 k/uL (1.3-7.7); Neutrophils % (M) 38 %; Nucleated Red Blood Cells 0 /100 WBC (0-0); Total Cells Counted 200
[2018-01-06 11:06] LABS: Poikilocytosis (M) Present
[2018-01-06 12:01] LABS: Hemoglobin A1C 7.8 % (4.0-6.0)
[2018-01-06 12:14] LABS: Glucose,Whole Blood 160 mg/dL (75-99)
--- NOTE | 2018-01-06 13:05 | XR ---
EXAMINATION TYPE: XR chest 2V DATE OF EXAM: 01/05/2018 HISTORY: pneumonia. REFERENCE: Previous study dated 01/04/2018. FINDINGS: The heart is mildly enlarged. There is worsening interstitial change. Pleural spaces are cl ear. IMPRESSION: WORSENING INTERSTITIAL CHANGE MAY REPRESENT WORSENING HEART FAILURE OR A TYPICAL PNEUMONIA.
[2018-01-06] MEDS: ONDANSETRON 4 MG/2 ML VIAL IVP PRN ×2 (13:27→22:10)
--- NOTE | 2018-01-06 15:04 | P.PN ---
Subjective Progress Note Date: 01/06/18 Progress note being dictated for Dr. Amos. Interval history: Patient is a 53-year-old male with a known history of hypertension, diabetes type II and previous history of diverticulitis came to ER with complaints of left-sided abdominal pain along with fever and chills worsening for the past 3 days. Patient was also having increased shortness of breath and chest pain with deep breathing. Patient does have cough but without much sputum production. No nausea vomiting. No diarrhea. Patient thought that she was having diverticulitis again and came to the hospital for further evaluation. Patient had diverticular [place] 2 months ago. Denied any sick contacts. No travel. Patient felt generally weak and generalized body aches. Patient was febrile on admission. Denies any leg swelling, back pain, peripheral paresthesias, headaches, sore throat, upper respiratory symptoms. T-max 101.8 Chest x-ray showed cardiomegaly and chronic changes without suspicious acute infiltrate. CT of abdomen pelvis showed new multifocal groundglass opacities in the lung base could reflect new multifocal pneumonia. Correlate clinically Attention to her uterus abnormal prominence of the central endometrium could reflect trapped fluid in the endometrial canal., Abnormal thickening cannot be excluded. Advise nonemergent pelvic ultrasound follow-up tofurther assess. Review of Systems Constitutional: Patient does have fever and chills and muscle aches and generalized body weakness Abdomen: Patient denied nausea vomiting. Patient does have abdominal pain. Cardiovascular: Patient denies any chest pain or short of breath no palpitations. Respiratory: Cough without sputum production. Patient does have shortness of breath Neurologic: Patient denied any numbness or tingling headache. Musculoskeletal: Patient denies any complaints of joint swelling or deformity. Skin: Negative Psychiatric: Negative Endocrine: No heat or cold intolerance. No recent weight gain. Genitourinary: No dysuria or hematuria. All other 14 point ROS negative except the above 01/06/2018 denies cough, desatted, maintaining O2 sats of 86-87% on 4 L nasal cannula, respiratory rate 20, tachycardic. ABGs ordered. Sitting up at side of bed, conversing without shortness of breath. Currently afebrile, T-max 101.1 , blood cultures pending.Denies chest pain, palpitations or increasing shortness of breath. Pancytopenia currently being worked up outpatient with Dr. Atkinson. Objective - Vital Signs Vital signs: Vital Signs Temp 97.3 F L 01/06/18 14:05 Pulse 110 H 01/06/18 14:05 Resp 20 01/06/18 14:05 BP 137/85 01/06/18 14:05 Pulse Ox 91 L 01/06/18 07:10 Intake & Output 01/05/18 01/06/18 01/06/18 18:59 06:59 18:59 Intake Total 600 410 Balance 600 410 Intake: Intake, IV Titration 410 Amount Azithromycin 500 mg In 250 Dextrose 5% in Water 250 ml @ 125 mls/hr IVPB DAILY STEPHEN Rx#:[id number] Sodium Chloride 0.9% 1, 160 000 ml @ 20 mls/hr IV . Q24H STEPHEN Rx#:[id number] Oral 600 Other: # Voids 3 2 # Bowel Movements 3 - Exam PHYSICAL EXAMINATION: Patient is sitting up in bed comfortably, no acute distress, awake alert and oriented. HEENT: Normocephalic. Neck is supple. Pupils reactive. Nostrils clear. Oral cavity is moist. Ears reveal no drainage. Neck reveals no JVD, carotid bruits, or thyromegaly. CHEST EXAMINATION: Trachea is central. Symmetrical expansion. Lung reyna clear to auscultation and percussion. Bilateral bases diminished. CARDIAC: Normal S1, S2 with no gallops. No murmurs ABDOMEN: Soft. Bowel sounds normal. No organomegaly. No abdominal bruits. Extremities: reveal no edema. No clubbing or cyanosis Neurologically awake, alert, oriented x3 with well-coordinated movements. No focal deficits noted Skin: No rash or skin lesions. Psychiatric: Coperative. Nonsuicidal Musculoskeletal: No joint swelling or deformity. Normal range of motion. - Labs CBC & Chem 7: 01/06/18 08:35 01/06/18 08:35 Labs: Abnormal Lab Results - Last 24 Hours (Table) 01/05/18 01/05/18 01/05/18 Range/Units 08:50 16:51 20:45 WBC (3.8-10.6) k/uL RBC (3.80-5.40) m/uL Hgb (11.4-16.0) gm/dL Hct (34.0-46.0) % Plt Count (150-450) k/uL Neutrophils # (Manual) (1.3-7.7) k/uL Lymphocytes # (Manual) (1.0-4.8) k/uL Blast Cells # (Man) (0) k/uL Glucose (74-99) mg/dL POC Glucose (mg/dL) 138 H 153 H (75-99) mg/dL Hemoglobin A1c 7.8 H (4.0-6.0) % 01/06/18 01/06/18 01/06/18 Range/Units 07:07 08:35 08:35 WBC 2.2 L (3.8-10.6) k/uL RBC 3.24 L (3.80-5.40) m/uL Hgb 10.4 L (11.4-16.0) gm/dL Hct 30.9 L (34.0-46.0) % Plt Count 123 L (150-450) k/uL Neutrophils # (Manual) 0.84 L (1.3-7.7) k/uL Lymphocytes # (Manual) 0.79 L (1.0-4.8) k/uL Blast Cells # (Man) 0.18 H (0) k/uL Glucose 168 H (74-99) mg/dL POC Glucose (mg/dL) 161 H (75-99) mg/dL Hemoglobin A1c (4.0-6.0) % 01/06/18 Range/Units 11:59 WBC (3.8-10.6) k/uL RBC (3.80-5.40) m/uL Hgb (11.4-16.0) gm/dL Hct (34.0-46.0) % Plt Count (150-450) k/uL Neutrophils # (Manual) (1.3-7.7) k/uL Lymphocytes # (Manual) (1.0-4.8) k/uL Blast Cells # (Man) (0) k/uL Glucose (74-99) mg/dL POC Glucose (mg/dL) 160 H (75-99) mg/dL Hemoglobin A1c (4.0-6.0) % Microbiology - Last 24 Hours (Table) 01/04/18 20:00 Urine Culture - Final Urine,Voided 01/04/18 20:00 Blood Culture - Preliminary Blood No Growth after 24 hours Assessment and Plan Assessment: Sepsis secondary to bibasilar multifocal pneumonia. Acute hypoxic respiratory failure secondary to the above Lactic acidosis 2.1 admission resolved now Pancytopenia. Patient is being worked up for leukemia and Dr. Atkinson's office Abdominal pain possibly related to coughing. Resolved now Asthma Hypertension Hyperlipidemia Hypothyroidism Chronic back pain Iron deficiency anemia Recent history of acute diverticulitis Anxiety and depression\ Morbid obesity with BMI 54.8 DVT prophylaxis Plan: Continue on current medication regime ,monitoring and symptomatic treatment. Maintain antibiotics of Zithromax and Rocephin. Close monitoring of Blood cultures. Chest x-ray reporting worsening, desatted, maintaining O2 sats of 86-87% on 4 L nasal cannula, after warming fingers. ABGs ordered, pulmonary consulted. The impression and plan of care has been dictated as directed. : I performed a history and examination of this patient, discussed the same with the dictator. I agree with the dictator's note ,documented as a scribe. Any additional findings or plans will be noted.
--- NOTE | 2018-01-06 15:07 | XR ---
EXAMINATION TYPE: XR chest 1V portable DATE OF EXAM: 01/06/2018 Comparison: 01/05/2018 Clinical History: 53-year-old female low pulse ox, pneumonia Findings: Heart is mild to moderately enlarged. Left basilar underpenetrated and not well assessed. Diffuse int erstitial densities persist. No significant pleural effusion seen. Impression: 1. Cardiomegaly and diffuse interstitial changes. Correlate to exclude mild pulmonary vascular conges tion. Atypical pneumonias or interstitial pneumonitis would be alternative considerations. 2. The left base is underpenetrated and not well assessed. A focal infiltrate here is difficult to ex clude.
[2018-01-06 16:00] LABS: ABG Base Excess 1.2 mmol/L; ABG HCO3 26 mmol/L (21-25); ABG Oxygen Saturation 92.1 % (94-97); ABG PCO2 41 mmHg (35-45); ABG PH 7.41 (7.35-7.45); ABG PO2 62 mmHg (83-108); ABG TCO2 27 mmol/L (19-24)
[2018-01-06] MEDS ORDERED: RX INFO: IV CONTRAST WAS GIVEN 1 EACH MISC MISCELLANE PRN (16:42)
[2018-01-06 17:18] LABS: Glucose,Whole Blood 153 mg/dL (75-99)
--- NOTE | 2018-01-06 17:58 | CT ---
EXAMINATION TYPE: CT chest w con DATE OF EXAM: 01/06/2018 COMPARISON: 11/12/2017 HISTORY: SOB CT DLP: 837.4 mGycm Automated exposure control for dose reduction was used. CONTRAST: CT scan of the chest is performed with IV Contrast, patient injected with 100 mL of Isovue 300. FINDINGS: There is a diffuse bilateral patchy airspace pulmonary consolidation. Heart is enlarged. There is a 2 x 1.5 cm pretracheal lymph node. There are other smaller or tracheal lymph nodes. There are no hilar masses. Thoracic aorta appears normal. There is no pericardial effusion. There is mild pleural thick ening at the lung bases. The bony thorax is intact. IMPRESSION: There are new extensive bilateral pulmonary airspace infiltrates compared to last exam a nd consistent with acute pneumonia. There is increased paratracheal adenopathy compared to last exam.
--- NOTE | 2018-01-06 18:14 | P.CNPUL ---
History of Present Illness Consult date: 01/06/18 Requesting physician: David Amos Reason for consult: dyspnea, asthma, abnormal CXR/CT Chief complaint: Shortness of breath, fever, hypoxemic respiratory failure History of present illness: Mrs. Brunner is a 53-year-old white female patient of Dr. Nikki Soto who presented to the hospital on 01/04/2018 at 1936 with complaints of a history fever, chills, increasing shortness of breath. She denied any cough, she denied any chest congestion, or wheezing. Has a known history of bronchial asthma, and her last hospitalization was back in August for acute asthma exacerbation secondary to acute influenza B tracheobronchitis and left lower leg cellulitis. Patient had recovered, and was doing well at home. She sees Dr. Dr. Hollingsworth in the pulmonary office for her history of bronchial asthma, and her most recent PFT showed an FEV1 of 68% of predicted, with a 9% improvement post bronchodilator treatment. This was an improvement from her PFT from 2017, which showed severe obstruction with FEV1 of 1.12 L of 43% of predicted, with improvement to 56% of predicted postbronchodilator treatment. Patient is on Singulair, Symbicort, Ventolin inhaler, in addition to Singulair, Claritin, and Flonase. Patient had never been intubated for asthma exacerbation, she is a lifetime nonsmoker, she is not sure what her triggers are. Prior to this episode, she used her rescue inhaler about once a week. Patient did have shaking chills at home, she was short of breath even walking to the bathroom. In the emergency department her initial temperature was 98.4, however through her stay in the hospital, she had been intermittently febrile with fevers as high as 103.4F. Normally does not wear oxygen at baseline, however today she became hypoxemic, with a pulse ox in the low 80s on room air, pulse ox on 4 L per nasal cannula was 86%. Patient also had some left lower quadrant discomfort , abdominal/pelvis CT was completed and showed abnormal prominence of central endometrium could represent trapped fluid in the endometrial canal, abnormal thickening could not be excluded, and nonemergent pelvic ultrasound was recommended. Multifocal groundglass opacities were noted in the lung bases. Chest x-ray showed cardiomegaly and chronic parenchymal changes without suspicious focal airspace opacity. This was compared the CT chest from 2017, which showed mild diffuse bronchial wall thickening persistent with a diagnosis of bronchitis and chronic asthma, and subtle multifocal patchy groundglass infiltrates and possible tree-in-bud densities in the right lower lobe, and distal small airways impaction with mucoid debris. At the time of the CT chest patient was completely asymptomatic. EKG showed normal sinus rhythm. Patient was started on empiric antibiotics in the form of Rocephin and azithromycin, and was admitted for further management. We were consulted today in regards to acute hypoxemic respiratory failure, stat blood gas was obtained on 10 L high flow, and it showed pO2 of 62, pCO2 41, pH of 7.41, consistent with hypoxemic respiratory failure. This morning's chest x-ray showed worsening interstitial changes, and follow-up chest x-ray this afternoon showed cardiomegaly with diffuse interstitial changes, mild pulmonary vascular congestion, findings could be correlated to atypical pneumonia or interstitial pneumonitis. ProBNP was added to this morning's labs and was within normal limits at 576. Labs show initial white count of 3.3, which subsequently decreased to 2.2 through patient's stay, hemoglobin of 11.4, down to 10.4, no evidence of coagulopathy, electrolytes within normal limits, renal profile is normal, initial plasma lactic acid was 2.2, patient was given a liter bolus in the emergency room, and received a maintenance IV fluid rate at 100 ML per hour. He was given a dose of IV Levaquin in the ER, and was subsequently switched to Rocephin and Zithromax on which she remains. Her T-max in the last 24 hours was 101.1F, patient had another episode of low-grade fever this morning with a temp of 100F. He was treated with IV Tylenol, urine and blood cultures remain negative to date. Her other medical history includes diabetes mellitus type 2, morbid obesity, GERD/reflux, hypertension, hyperlipidemia, hypothyroidism, chronic back pain, neuropathy, iron deficiency anemia, insomnia , anxiety, depression. Of note patient states she was recently seen by Dr. Lucero in consultation in regards to low white counts and anemia, and she is supposed to follow-up with him in the fall in regards to the results of testing. On today's evaluation patient is calm and comfortable, she is in no acute distress, in the recliner, on 10 L per high flow nasal cannula, his any cough, denies any chest congestion, denies any phlegm production denies any hemoptysis, denies any chest wall tenderness. We're seeing the patient in regards to acute hypoxemic respiratory failure, and the cause of which is under investigation. Review of Systems All systems: negative Constitutional: Denies chills, Denies fever Eyes: denies blurred vision, denies pain Ears, nose, mouth and throat: Denies headache, Denies sore throat Cardiovascular: Reports decreased exercise tolerance, Reports dyspnea on exertion, Reports edema, Denies chest pain, Denies shortness of breath Respiratory: Reports dyspnea, Denies cough Gastrointestinal: Denies abdominal pain, Denies diarrhea, Denies nausea, Denies vomiting Genitourinary: Denies dysuria, Denies hematuria Musculoskeletal: Reports myalgias Musculoskeletal: bilateral: hand pain Integumentary: Denies pruritus, Denies rash Neurological: Denies numbness, Denies weakness Psychiatric: Reports anxiety, Reports depression, Reports insomnia Endocrine: Denies fatigue, Denies weight change Past Medical History Past Medical History: Asthma, Diabetes Mellitus, GERD/Reflux, Hyperlipidemia, Hypertension, Thyroid Disorder Additional Past Medical History / Comment(s): Chronic back pain, neuropathy L hand, L hand 2nd and 3rd fingers are "locking up" at times, carpal tunnel right hand, hypothyroid, iron deficiency anemia, insomnia, sinus problems; pt recently diagnosed with diverticulitis History of Any Multi-Drug Resistant Organisms: None Reported Past Surgical History: Adenoidectomy, Heart Catheterization, Tonsillectomy, Tubal Ligation Additional Past Surgical History / Comment(s): carpel tunnel right wrist, bilateral cataract removal, bilateral laser eye surgery/lens implants, colonoscopy, epidural injections with last time being 1 week ago. Past Anesthesia/Blood Transfusion Reactions: No Reported Reaction Past Psychological History: Anxiety, Depression Additional Psychological History / Comment(s): Pt states her anxiety and depression are managed with her medications. She lives alone and is independent. No experience. No international travel. Pet dogs in the home cared for by significant other. Is not a current tobacco smoker or significant alcohol user Smoking Status: Never smoker Past Alcohol Use History: None Reported Past Drug Use History: None Reported - Past Family History Mother Family Medical History: Cancer Father Family Medical History: No Reported History Additional Family Medical History / Comment(s): Father is living. Medications and Allergies Home Medications Medication Instructions Recorded Confirmed Type Escitalopram Oxalate [Lexapro] 30 mg PO QAM 05/04/16 01/05/18 History Ferrous Sulfate [Iron (65 MG 325 mg PO DAILY 05/04/16 01/05/18 History Elemental)] Omeprazole [PriLOSEC] 20 mg PO AC-BID 05/04/16 01/05/18 History Aspirin [Adult Low Dose Aspirin EC] 81 mg PO DAILY 10/26/16 01/05/18 History Atorvastatin [Lipitor] 20 mg PO DAILY 10/26/16 01/05/18 History Fluticasone Nasal [place] [Flonase 1 spray EA NOSTRIL DAILY 10/26/16 01/05/18 History Nasal [place]] Loratadine [Claritin] 10 mg PO DAILY 10/26/16 01/05/18 History Zolpidem [Ambien] 10 mg PO HS 10/26/16 01/05/18 History Furosemide [Lasix] 20 mg PO BID 08/19/17 01/05/18 History Gabapentin [Neurontin] 300 mg PO TID 08/19/17 01/05/18 History Levothyroxine Sodium [Synthroid] 125 mcg PO DAILY 08/19/17 01/05/18 History Nystatin 100,000 Unit/gm Powd 1 applic TOPICAL BID PRN 08/19/17 01/05/18 History [Mycostatin Powder] Potassium Chloride [Klor-Con 20] 20 meq PO BID 08/19/17 01/05/18 History traMADol HCL [Ultram] 50 mg PO Q6HR PRN #1 tab 08/23/17 01/05/18 Rx Calcium Carbonate/Vitamin D3 1 tab PO DAILY 10/08/17 01/05/18 History [Calcium 600-Vit D3 400 Caplet] Metoprolol Tartrate [Lopressor] 50 mg PO BID 10/08/17 01/05/18 History Montelukast [Singulair] 10 mg PO HS 10/08/17 01/05/18 History Naproxen 500 mg PO DAILY PRN 10/08/17 01/05/18 History Albuterol Inhaler [Ventolin Hfa 2 puff INHALATION RT-QID PRN 10/29/17 01/05/18 History Inhaler] Budesonide/Formoterol Fumarate 2 puff INHALATION RT-BID 10/29/17 01/05/18 History [Symbicort 160-4.5 Mcg Inhaler] Ipratropium-Albuterol Nebulize 3 ml INHALATION RT-QID PRN 10/29/17 01/05/18 History [Duoneb 0.5 mg-3 mg/3 ml Soln] busPIRone HCl [Buspar] 5 mg PO BID 10/29/17 01/05/18 History Allergies Allergy/AdvReac Type Severity Reaction Status Date / Time Penicillins Allergy Rash/Hives Verified 01/05/18 13:18 Physical Exam Vitals: Vital Signs Temp Pulse Resp BP Pulse Ox 01/06/18 15:50 92 L 01/06/18 14:05 97.3 F L 110 H 20 137/85 86 L 01/06/18 07:10 100.0 F H 95 18 135/84 91 L 01/06/18 00:07 99.3 F 01/05/18 23:00 101.1 F H 89 16 132/72 95 Intake and Output 01/06/18 01/06/18 01/06/18 06:59 14:59 22:59 Intake Total 410 600 Balance 410 600 Intake: Intake, IV Titration 410 Amount Azithromycin 500 mg In 250 Dextrose 5% in Water 250 ml @ 125 mls/hr IVPB DAILY [facility] Rx#:[id number] Sodium Chloride 0.9% 1, 160 000 ml @ 20 mls/hr IV . Q24H STEPH[facility] Rx#:[id number] Oral 600 Other: # Voids 2 4 - Constitutional Alert, pleasant, 53-year-old obese white female, sitting in the recliner, currently on 10 L per high flow nasal cannula General appearance: morbidly obese, no acute distress - EENT Eyes: PERRLA, dentition normal ENT: NA/AT - Neck Neck: no lymphadenopathy, normal ROM Carotids: bilateral: upstroke normal Thyroid: bilateral: normal size - Respiratory Respiratory: bilateral: diminished, rales (A few scattered rales at posterior bases) - Cardiovascular Rhythm: regular Heart sounds: normal: S1, S2 leg Peripheral Edema: bilateral: Trace ankle Peripheral Edema: bilateral: Trace dorsalis pedis Peripheral Pulses: bilateral: Normal radial pulse Peripheral Pulses: bilateral: Normal - Gastrointestinal General gastrointestinal: no organomegaly, soft, no tenderness - Integumentary Integumentary: normal turgor - Neurologic Neurologic: CNII-XII intact - Musculoskeletal Musculoskeletal: strength equal bilaterally - Psychiatric Psychiatric: A&O x's 3, appropriate affect, intact judgment & insight Results - Laboratory Findings CBC and BMP: 01/06/18 08:35 01/06/18 08:35 ABG ABG pH 7.41 (7.35-7.45) 01/06/18 15:55 ABG pCO2 41 mmHg (35-45) 01/06/18 15:55 ABG pO2 62 mmHg (83-108) L 01/06/18 15:55 ABG O2 Saturation 92.1 % (94-97) L 01/06/18 15:55 PT/INR, D-dimer PT 10.1 sec (9.0-12.0) 01/04/18 20:00 INR 1.0 (<1.2) 01/04/18 20:00 Abnormal lab findings: Abnormal Labs 01/04/18 01/04/18 01/04/18 20:00 20:00 20:00 WBC 3.3 L RBC 3.66 L Hgb Hct Plt Count Neutrophils # (Manual) Lymphocytes # (Manual) Blast Cells # (Man) Pathologist Review ABG pO2 ABG HCO3 ABG Total CO2 ABG O2 Saturation BUN 6 L Glucose 197 H POC Glucose (mg/dL) Hemoglobin A1c Plasma Lactic Acid Bereket 2.2 H* 01/05/18 01/05/18 01/05/18 07:01 08:50 08:50 WBC 2.5 L RBC 3.49 L Hgb 10.8 L Hct 33.5 L Plt Count 111 L Neutrophils # (Manual) 0.90 L Lymphocytes # (Manual) 0.63 L Blast Cells # (Man) 0.25 H Pathologist Review See comment A ABG pO2 ABG HCO3 ABG Total CO2 ABG O2 Saturation BUN Glucose POC Glucose (mg/dL) 183 H Hemoglobin A1c 7.8 H Plasma Lactic Acid Bereket 01/05/18 01/05/18 01/05/18 11:54 16:51 20:45 WBC RBC Hgb Hct Plt Count Neutrophils # (Manual) Lymphocytes # (Manual) Blast Cells # (Man) Pathologist Review ABG pO2 ABG HCO3 ABG Total CO2 ABG O2 Saturation BUN Glucose POC Glucose (mg/dL) 218 H 138 H 153 H Hemoglobin A1c Plasma Lactic Acid Bereket 01/06/18 01/06/18 01/06/18 07:07 08:35 08:35 WBC 2.2 L RBC 3.24 L Hgb 10.4 L Hct 30.9 L Plt Count 123 L Neutrophils # (Manual) 0.84 L Lymphocytes # (Manual) 0.79 L Blast Cells # (Man) 0.18 H Pathologist Review ABG pO2 ABG HCO3 ABG Total CO2 ABG O2 Saturation BUN Glucose 168 H POC Glucose (mg/dL) 161 H Hemoglobin A1c Plasma Lactic Acid Bereket 01/06/18 01/06/18 11:59 15:55 WBC RBC Hgb Hct Plt Count Neutrophils # (Manual) Lymphocytes # (Manual) Blast Cells # (Man) Pathologist Review ABG pO2 62 L ABG HCO3 26 H ABG Total CO2 27 H ABG O2 Saturation 92.1 L BUN Glucose POC Glucose (mg/dL) 160 H Hemoglobin A1c Plasma Lactic Acid Bereket - Diagnostic Findings Chest x-ray: report reviewed, image reviewed Additional studies: CT abdomen and pelvis results and the films of the bases of the chest were reviewed with Dr. Benton, EKG reviewed Assessment and Plan Plan: Assessment: #1. Acute hypoxemic respiratory failure related to possible atypical pneumonia , and a component of fluid overload. Abdomen and pelvis CT films have been reviewed, and showed new multifocal groundglass opacities in the lung bases that could possibly reflect multifocal pneumonia #2. Intermittent fever, chills, shortness of breath related to the above #3. Leukopenia, rule out sepsis. This has been under investigation on an outpatient basis, the patient had consultations with Dr. Lucero, and Dr. Rapp , the results of which are unavailable #4. Mild lactic acidosis present on admission, with lactic acid level of 2.2, and the patient was fluid resuscitated with 1 L of crystalloids, and received maintenance IV fluids at a rate of 100 ML per hour, subsequent lactic acid was down to 0.8 #5. Abdominal pain, CT of abdomen and pelvis showed abnormal prominence of the central endometrium, or could possibly represent trapped fluid in the endometrial canal and abnormal endometrial thickening, be followed up with nonemergent pelvic ultrasound #6. Chronic bronchial asthma, and her latest PFT showed FEV1 of 68% of predicted, with post bronchodilator response up to 73% of predicted, and patient was diagnosed with adult onset genetic asthma. This seems to be stable right now #7. Hypertension, hyperlipidemia #8. Diabetes mellitus type 2 #9. Morbid obesity with a BMI of 54.8 kg/m #10. Chronic back pain #11. GERD/reflux on omeprazole #12. Hypothyroidism #13. Anxiety, depression #14. Lifetime nonsmoker #15. Exertional dyspnea, limited exercise capacity, patient had a 6 minute walk test in the pulmonary office, and became severely short of breath after 3 laps, and desatted to 88%. Continue nebulized bronchodilators, continue Symbicort. Plan: We will obtain a dedicated CT chest with contrast, will increase IV diuretics to 40 mg every 8 hours for 24 hours, we'll attempt to wean down the FiO2 keep to keep the pulse ox at 92% or above. For now patient's asthma seems to be stable, no wheezing, no chest tightness, no chest congestion or sputum production. Continue current antibiotic coverage, will obtain repeat blood cultures. IV fluids to KVO. 2-D echocardiogram. Legionella urine antigen and mycoplasma IgM antibody were already ordered by the attending physician and are pending at this time. We'll continue to closely follow. I performed a history & physical examination of the patient and discussed their management with my nurse practitioner, Flori Colugna. I reviewed the nurse practitioner's note and agree with the documented findings and plan of care. Lung sounds are positive a few scattered crackles, no wheezes noted. The findings and the impression was discussed with the patient. I attest to the documentation by the nurse practitioner. Time with Patient: Greater than 30
[2018-01-06 21:10] LABS: Glucose,Whole Blood 137 mg/dL (75-99)
[2018-01-06] MEDS: FUROSEMIDE 10 MG/ML 4 ML VIAL IV SCH (21:52)
[2018-01-06] MEDS: ZOLPIDEM 10 MG TAB PO SCH (21:54)
[2018-01-06] MEDS: MONTELUKAST 10 MG TAB PO SCH (21:54)
[2018-01-07] MEDS ORDERED: FUROSEMIDE 10 MG/ML 4 ML VIAL IV SCH
[2018-01-07] MEDS: ACETAMINOPHEN TAB 325 MG TAB PO PRN ×3 (00:07→18:04)
[2018-01-07] MEDS: SODIUM CHLORIDE 0.9% 1,000 ML IV SCH (06:14)
[2018-01-07] MEDS: LEVOTHYROXINE 125 MCG TAB PO SCH (06:34)
[2018-01-07] MEDS: SYMBICORT 160-4.5 MCG INHALER INHALATION SCH ×2 (07:26→20:55)
[2018-01-07 07:54] LABS: Glucose,Whole Blood 127 mg/dL (75-99)
[2018-01-07] MEDS: INSULIN ASPART 100 UNIT/ML 1 ML 10 ML VIAL SQ SCH ×4 (08:40→22:02)
[2018-01-07] MEDS: LORATADINE 10 MG TAB PO SCH (08:45)
[2018-01-07] MEDS: FERROUS SULFATE 325 MG TAB PO SCH (08:46)
[2018-01-07] MEDS: ASPIRIN 81 MG PO SCH (08:46)
[2018-01-07] MEDS: ATORVASTATIN 20 MG TAB PO SCH (08:46)
[2018-01-07] MEDS: GABAPENTIN 300 MG CAP PO SCH ×3 (08:46→22:03)
[2018-01-07] MEDS: PANTOPRAZOLE 40 MG TABLET PO SCH ×2 (08:46→21:33)
[2018-01-07] MEDS: HEPARIN SODIUM,PORCINE 5,000 UNIT/ML 1 ML VIAL SQ SCH ×2 (08:46→16:14)
[2018-01-07] MEDS: CALCIUM CARB-VIT D 500MG-200UN 1 EACH TAB PO SCH (08:46)
[2018-01-07] MEDS: busPIRone HCl 5 MG TAB PO SCH ×2 (08:46→21:03)
[2018-01-07] MEDS: POTASSIUM CHLORIDE ER 20 MEQ TAB.ER PO SCH ×2 (08:47→20:59)
[2018-01-07] MEDS: FLUTICASONE 50MCG/SPRAY NASAL 16GM EA NOSTRIL SCH (08:47)
[2018-01-07] MEDS: METOPROLOL TARTRATE 50 MG TAB PO SCH ×2 (08:47→21:01)
[2018-01-07] MEDS: FUROSEMIDE 10 MG/ML 4 ML VIAL IV SCH (08:47)
[2018-01-07] MEDS: cefTRIAXone IN SWFI 1,000 MG/10 ML SYRINGE IVP SCH (08:53)
[2018-01-07] MEDS: ESCITALOPRAM 10 MG TAB PO SCH (08:54)
[2018-01-07] MEDS ORDERED: AZITHROMYCIN 500 MG TAB PO SCH (09:00)
--- NOTE | 2018-01-07 10:15 | ECHOF ---
Referral Reason:shortness of breath MEASUREMENTS -------- HEIGHT: 157.5 cm WEIGHT: 135.6 kg BP: 102/52 RVIDd: 2.7 cm (< 3.3) IVSd: 1.5 cm (0.6 - 1.1) LVIDd: 3.9 cm (3.9 - 5.3) LVPWd: 1.4 cm (0.6 - 1.1) IVSs: 1.6 cm LVIDs: 3.1 cm LVPWs: 1.1 cm Ao Diam: 3.5 cm (2.0 - 3.7) AV Cusp: 2.0 cm (1.5 - 2.6) LA Diam: 4.2 cm (2.7 - 3.8) MV EXCURSION: 26.941 mm (> 18.000) MV EF SLOPE: 135 mm/s (70 - 150) EPSS: 0.7 cm MV E Zenon: 0.67 m/s MV DecT: 127 ms MV A Zenon: 0.66 m/s MV E/A Ratio: 1.01 RAP: 5.00 mmHg RVSP: 16.59 mmHg FINDINGS -------- Sinus rhythm. Morbid Obesity This was a techncally difficult study with suboptimal views, , Lumason utilized for enhancement of im ages. The left ventricular size is normal. There is mild concentric left ventricular hypertrophy. Overa ll left ventricular systolic function is low-normal with, an EF between 50 - 55 %. The right ventricle is normal in size. The left atrial size is normal. The right atrial size is normal. 5.0mg OF Lumason UTLIZED: 2 OR MORE WALL SEGMENTS NOT VISUALIZED. The aortic valve was not well visualized. Mild mitral annular calcification present. Mild mitral regurgitation is present. Mild tricuspid regurgitation present. There is no evidence of pulmonary hypertension. The right v entricular systolic pressure, as measured by Doppler, is 16.59mmHg. The pulmonic valve was not well visualized. The aortic root size is normal. Echo free space represents a pericardial fat pad. CONCLUSIONS -------- 1. Morbid Obesity 2. This was a techncally difficult study with suboptimal views, , Lumason utilized for enhancement of images. 3. The left ventricular size is normal. 4. There is mild concentric left ventricular hypertrophy. 5. Overall left ventricular systolic function is low-normal with, an EF between 50 - 55 %. 6. The right ventricle is normal in size. 7. The left atrial size is normal. 8. The right atrial size is normal. 9. 5.0mg OF Lumason UTLIZED: 2 OR MORE WALL SEGMENTS NOT VISUALIZED. 10. The aortic valve was not well visualized. 11. Mild mitral annular calcification present. 12. Mild mitral regurgitation is present. 13. Mild tricuspid regurgitation present. 14. There is no evidence of pulmonary hypertension. 15. The right ventricular systolic pressure, as measured by Doppler, is 16.59mmHg. 16. The pulmonic valve was not well visualized. 17. The aortic root size is normal. 18. Echo free space represents a pericardial fat pad. SHIP ENGINEER: Odalys Mccrary RDCS
[2018-01-07 12:27] LABS: Glucose,Whole Blood 147 mg/dL (75-99)
[2018-01-07] MEDS ORDERED: LEVOFLOXACIN 750MG-D5W PMX 750 MG in DEXTROSE/WATER 1 150ML.BAG IVPB SCH (12:30)
[2018-01-07 15:14] LABS: Calcium 8.3 mg/dL (8.4-10.2); Potassium 4.1 mmol/L (3.5-5.1)
[2018-01-07 15:45] LABS: HCT 29.3 % (34.0-46.0); HGB 9.5 gm/dL (11.4-16.0); MCH 31.3 pg (25.0-35.0); MCHC 32.5 g/dL (31.0-37.0); MCV 96.3 fL (80.0-100.0); Mean Platelet Volume 7.4; Platelet Count 121 k/uL (150-450); RBC 3.04 m/uL (3.80-5.40); RDW 14.6 % (11.5-15.5); WBC 2.5 k/uL (3.8-10.6)
[2018-01-07 17:00] LABS: Blast Cells # (M) 0.18 k/uL (0); Eosinophils # (M) 0.03 k/uL (0-0.7); Lymphocytes # (M) 0.93 k/uL (1.0-4.8); Monocytes # (M) 0.55 k/uL (0-1.0); Neutrophils # (M) 0.85 k/uL (1.3-7.7); Neutrophils % (M) 34 %; Nucleated Red Blood Cells 0 /100 WBC (0-0); Total Cells Counted 200
[2018-01-07 17:05] LABS: Glucose,Whole Blood 99 mg/dL (75-99)
[2018-01-07] MEDS: MEROPENEM 2 GM in SODIUM CHLORIDE 0.9% 100 ML IVPB SCH (17:07)
[2018-01-07] MEDS: methylPREDNISolone SOD SUCCI 40 MG/ML 1 ML VIAL IV SCH (17:07)
[2018-01-07] MEDS: IPRATROPIUM-ALBUTEROL 3 ML NEB INHALATION PRN (17:14)
--- NOTE | 2018-01-07 17:29 | P.PN ---
Subjective Progress Note Date: 01/07/18 Principal diagnosis: Extensive multilobar nodular infiltrates, consistent with pneumonia, acute hypoxic respiratory failure Mrs. Brunner is a 53-year-old white female patient of Dr. Nikki Soto who presented to the hospital on 01/04/2018 at 1936 with complaints of a history fever, chills, increasing shortness of breath. She denied any cough, she denied any chest congestion, or wheezing. Has a known history of bronchial asthma, and her last hospitalization was back in August for acute asthma exacerbation secondary to acute influenza B tracheobronchitis and left lower leg cellulitis. Patient had recovered, and was doing well at home. She sees Dr. Dr. Hollingsworth in the pulmonary office for her history of bronchial asthma, and her most recent PFT showed an FEV1 of 68% of predicted, with a 9% improvement post bronchodilator treatment. This was an improvement from her PFT from 2017, which showed severe obstruction with FEV1 of 1.12 L of 43% of predicted, with improvement to 56% of predicted postbronchodilator treatment. Patient is on Singulair, Symbicort, Ventolin inhaler, in addition to Singulair, Claritin, and Flonase. Patient had never been intubated for asthma exacerbation, she is a lifetime nonsmoker, she is not sure what her triggers are. Prior to this episode, she used her rescue inhaler about once a week. Patient did have shaking chills at home, she was short of breath even walking to the bathroom. In the emergency department her initial temperature was 98.4, however through her stay in the hospital, she had been intermittently febrile with fevers as high as 103.4F. Normally does not wear oxygen at baseline, however today she became hypoxemic, with a pulse ox in the low 80s on room air, pulse ox on 4 L per nasal cannula was 86%. Patient also had some left lower quadrant discomfort , abdominal/pelvis CT was completed and showed abnormal prominence of central endometrium could represent trapped fluid in the endometrial canal, abnormal thickening could not be excluded, and nonemergent pelvic ultrasound was recommended. Multifocal groundglass opacities were noted in the lung bases. Chest x-ray showed cardiomegaly and chronic parenchymal changes without suspicious focal airspace opacity. This was compared the CT chest from 2017, which showed mild diffuse bronchial wall thickening persistent with a diagnosis of bronchitis and chronic asthma, and subtle multifocal patchy groundglass infiltrates and possible tree-in-bud densities in the right lower lobe, and distal small airways impaction with mucoid debris. At the time of the CT chest patient was completely asymptomatic. EKG showed normal sinus rhythm. Patient was started on empiric antibiotics in the form of Rocephin and azithromycin, and was admitted for further management. We were consulted today in regards to acute hypoxemic respiratory failure, stat blood gas was obtained on 10 L high flow, and it showed pO2 of 62, pCO2 41, pH of 7.41, consistent with hypoxemic respiratory failure. This morning's chest x-ray showed worsening interstitial changes, and follow-up chest x-ray this afternoon showed cardiomegaly with diffuse interstitial changes, mild pulmonary vascular congestion, findings could be correlated to atypical pneumonia or interstitial pneumonitis. ProBNP was added to this morning's labs and was within normal limits at 576. Labs show initial white count of 3.3, which subsequently decreased to 2.2 through patient's stay, hemoglobin of 11.4, down to 10.4, no evidence of coagulopathy, electrolytes within normal limits, renal profile is normal, initial plasma lactic acid was 2.2, patient was given a liter bolus in the emergency room, and received a maintenance IV fluid rate at 100 ML per hour. He was given a dose of IV Levaquin in the ER, and was subsequently switched to Rocephin and Zithromax on which she remains. Her T-max in the last 24 hours was 101.1F, patient had another episode of low-grade fever this morning with a temp of 100F. He was treated with IV Tylenol, urine and blood cultures remain negative to date. Her other medical history includes diabetes mellitus type 2, morbid obesity, GERD/reflux, hypertension, hyperlipidemia, hypothyroidism, chronic back pain, neuropathy, iron deficiency anemia, insomnia , anxiety, depression. Of note patient states she was recently seen by Dr. Lucero in consultation in regards to low white counts and anemia, and she is supposed to follow-up with him in the fall in regards to the results of testing. On today's evaluation patient is calm and comfortable, she is in no acute distress, in the recliner, on 10 L per high flow nasal cannula, his any cough, denies any chest congestion, denies any phlegm production denies any hemoptysis, denies any chest wall tenderness. We're seeing the patient in regards to acute hypoxemic respiratory failure, and the cause of which is under investigation. On 01/07/2018 she was seen again in follow-up on medical surgical floor. She remains on high flow nasal cannula, currently at 10 L, and the pulse ox remains marginal from 88-93%. Patient still remains very dyspneic, and limited in terms of activity tolerance. She did have intermittent low-grade fevers today, with T-max of 100.7F. CT chest results and films were reviewed by Dr. Wylie today, and showed extensive bilateral pulmonary airspace infiltrates assisted with acute pneumonia, and increased paratracheal adenopathy. Lung sounds are diminished, but no rhonchi, rales or wheezes noted. Patient denies any phlegm production, denies any chest congestion, there is no wheezing. Patient's IV antibiotics have been switched to Levaquin, and the patient received 1 dose. Urine and blood cultures remain negative, Legionella urine antigen and mycoplasma IgM ordered and are pending at this time. Patient did receive a few doses of IV diuretics, with no improvement in oxygenation. Hence we will stop those. There is a concern about a fungal infection versus ALLERGIC bronchopulmonary aspergillosis. Antibiotic coverage will be stepped up and switched over to meropenem and vancomycin. We'll request consultation from hematology and infectious disease service. Objective - Vital Signs Vital signs: Vital Signs Temp 100.7 F H 01/07/18 14:57 Pulse 84 01/07/18 14:57 Resp 20 01/07/18 14:57 BP 114/63 01/07/18 14:57 Pulse Ox 91 L 01/07/18 14:57 Intake & Output 01/06/18 01/07/18 01/07/18 18:59 06:59 18:59 Intake Total 1610 600 Balance 1610 600 Intake: Intake, IV Titration 410 Amount Azithromycin 500 mg In 250 Dextrose 5% in Water 250 ml @ 125 mls/hr IVPB DAILY STEPHEN Rx#:[id number] Sodium Chloride 0.9% 1, 160 000 ml @ 20 mls/hr IV . Q24H STEPHEN Rx#:[id number] Oral 1200 600 Other: Voiding Method Bedside Commode # Voids 1 3 6 # Bowel Movements 2 - Exam - Constitutional Alert, pleasant, 53-year-old obese white female, sitting in the recliner, currently on 50% Ventimask General appearance: morbidly obese, no acute distress - EENT Eyes: PERRLA, dentition normal ENT: NA/AT - Neck Neck: no lymphadenopathy, normal ROM Carotids: bilateral: upstroke normal Thyroid: bilateral: normal size - Respiratory Respiratory: bilateral: diminished, no rales, no rhonchi or wheezes appreciated - Cardiovascular Rhythm: regular Heart sounds: normal: S1, S2 leg Peripheral Edema: bilateral: Trace ankle Peripheral Edema: bilateral: Trace dorsalis pedis Peripheral Pulses: bilateral: Normal radial pulse Peripheral Pulses: bilateral: Normal - Gastrointestinal General gastrointestinal: no organomegaly, soft, no tenderness - Integumentary Integumentary: normal turgor - Neurologic Neurologic: CNII-XII intact - Musculoskeletal Musculoskeletal: strength equal bilaterally - Psychiatric Psychiatric: A&O x's 3, appropriate affect, intact judgment & insight - Labs CBC & Chem 7: 01/07/18 14:45 01/07/18 14:45 Labs: Abnormal Lab Results - Last 24 Hours (Table) 01/06/18 01/06/18 01/07/18 Range/Units 17:04 21:08 07:12 WBC (3.8-10.6) k/uL RBC (3.80-5.40) m/uL Hgb (11.4-16.0) gm/dL Hct (34.0-46.0) % Plt Count (150-450) k/uL Neutrophils # (Manual) (1.3-7.7) k/uL Lymphocytes # (Manual) (1.0-4.8) k/uL Blast Cells # (Man) (0) k/uL Glucose (74-99) mg/dL POC Glucose (mg/dL) 153 H 137 H 127 H (75-99) mg/dL Calcium (8.4-10.2) mg/dL 01/07/18 01/07/18 01/07/18 Range/Units 11:59 14:45 14:45 WBC 2.5 L (3.8-10.6) k/uL RBC 3.04 L (3.80-5.40) m/uL Hgb 9.5 L (11.4-16.0) gm/dL Hct 29.3 L (34.0-46.0) % Plt Count 121 L (150-450) k/uL Neutrophils # (Manual) 0.85 L (1.3-7.7) k/uL Lymphocytes # (Manual) 0.93 L (1.0-4.8) k/uL Blast Cells # (Man) 0.18 H (0) k/uL Glucose 139 H (74-99) mg/dL POC Glucose (mg/dL) 147 H (75-99) mg/dL Calcium 8.3 L (8.4-10.2) mg/dL Microbiology - Last 24 Hours (Table) 01/04/18 20:00 Blood Culture - Preliminary Blood No Growth after 48 hours 01/04/18 20:00 Urine Culture - Final Urine,Voided Assessment and Plan Plan: Assessment: #1. Acute hypoxemic respiratory failure related to acute extensive bilateral infiltrates, consistent with acute pneumonia, community acquired, and there is a concern for fungal infection in this immunocompromised host #2. Intermittent fever, chills, shortness of breath related to the above #3. Leukopenia, rule out sepsis. This has been under investigation on an outpatient basis, the patient had consultations with Dr. Lucero, and Dr. Rapp , the results of which are unavailable #4. Mild lactic acidosis present on admission, with lactic acid level of 2.2, and the patient was fluid resuscitated with 1 L of crystalloids, and received maintenance IV fluids at a rate of 100 ML per hour, subsequent lactic acid was down to 0.8 #5. Abdominal pain, CT of abdomen and pelvis showed abnormal prominence of the central endometrium, or could possibly represent trapped fluid in the endometrial canal and abnormal endometrial thickening, be followed up with nonemergent pelvic ultrasound #6. Chronic bronchial asthma, and her latest PFT showed FEV1 of 68% of predicted, with post bronchodilator response up to 73% of predicted, and patient was diagnosed with adult onset genetic asthma. This seems to be stable right now #7. Hypertension, hyperlipidemia #8. Diabetes mellitus type 2 #9. Morbid obesity with a BMI of 54.8 kg/m #10. Chronic back pain #11. GERD/reflux on omeprazole #12. Hypothyroidism #13. Anxiety, depression #14. Lifetime nonsmoker #15. Exertional dyspnea, limited exercise capacity, patient had a 6 minute walk test in the pulmonary office, and became severely short of breath after 3 laps, and desatted to 88%. Continue nebulized bronchodilators, continue Symbicort. Plan: We will change the antibiotic coverage to meropenem and vancomycin, we will request ID service and hematology consultation. Patient has extensive bilateral nodular infiltrates, and ALLERGIC bronchopulmonary aspergillosis could also be in the differential. We will start Solu-Medrol at 40 mg every 8 hours. Continue with nebulized bronchodilators. May consider doing bronchoscopy with BAL if there is no improvement. I performed a history & physical examination of the patient and discussed their management with my nurse practitioner, Flori Colunga. I reviewed the nurse practitioner's note and agree with the documented findings and plan of care. Lung sounds are diminished at the bases. The findings and the impression was discussed with the patient. I attest to the documentation by the nurse practitioner. Time with Patient: Less than 30
[2018-01-07] MEDS: MONTELUKAST 10 MG TAB PO SCH (21:00)
[2018-01-07 21:13] LABS: Glucose,Whole Blood 214 mg/dL (75-99)
[2018-01-07] MEDS: ZOLPIDEM 10 MG TAB PO SCH (22:03)
[2018-01-08] MEDS ORDERED: HEPARIN SODIUM,PORCINE 5,000 UNIT/ML 1 ML VIAL ONE
[2018-01-08] MEDS ORDERED: methylPREDNISolone SOD SUCCI 125 MG/2 ML VIAL ONE
[2018-01-08] MEDS: MEROPENEM 2 GM in SODIUM CHLORIDE 0.9% 100 ML IVPB SCH ×3 (04:13→15:49)
[2018-01-08] MEDS: HEPARIN SODIUM,PORCINE 5,000 UNIT/ML 1 ML VIAL SQ SCH ×3 (04:13→15:50)
[2018-01-08] MEDS: methylPREDNISolone SOD SUCCI 40 MG/ML 1 ML VIAL IV SCH ×3 (04:13→15:50)
[2018-01-08] MEDS: SODIUM CHLORIDE 0.9% 1,000 ML IV SCH (05:24)
[2018-01-08] MEDS: LEVOTHYROXINE 125 MCG TAB PO SCH (06:26)
[2018-01-08 07:39] LABS: Glucose,Whole Blood 231 mg/dL (75-99)
[2018-01-08] MEDS: IPRATROPIUM-ALBUTEROL 3 ML NEB INHALATION PRN ×4 (07:42→20:12)
[2018-01-08] MEDS: SYMBICORT 160-4.5 MCG INHALER INHALATION SCH ×2 (07:42→20:12)
[2018-01-08] MEDS: INSULIN ASPART 100 UNIT/ML 1 ML 10 ML VIAL SQ SCH ×4 (07:53→21:33)
[2018-01-08] MEDS: PANTOPRAZOLE 40 MG TABLET PO SCH ×2 (07:54→18:13)
[2018-01-08] MEDS: ESCITALOPRAM 10 MG TAB PO SCH (07:55)
[2018-01-08] MEDS: ASPIRIN 81 MG PO SCH (07:55)
[2018-01-08] MEDS: busPIRone HCl 5 MG TAB PO SCH ×2 (07:55→21:32)
[2018-01-08] MEDS: ATORVASTATIN 20 MG TAB PO SCH (07:55)
[2018-01-08] MEDS: FERROUS SULFATE 325 MG TAB PO SCH (07:56)
[2018-01-08] MEDS: CALCIUM CARB-VIT D 500MG-200UN 1 EACH TAB PO SCH (07:56)
[2018-01-08] MEDS: FLUTICASONE 50MCG/SPRAY NASAL 16GM EA NOSTRIL SCH (07:56)
[2018-01-08] MEDS: GABAPENTIN 300 MG CAP PO SCH ×3 (07:56→21:33)
[2018-01-08] MEDS: LORATADINE 10 MG TAB PO SCH (07:57)
[2018-01-08] MEDS: METOPROLOL TARTRATE 50 MG TAB PO SCH ×2 (07:57→21:32)
[2018-01-08] MEDS: POTASSIUM CHLORIDE ER 20 MEQ TAB.ER PO SCH ×2 (07:57→21:33)
[2018-01-08] MEDS ORDERED: CYANOCOBALAMIN 1,000 MCG/ML 1 ML VIAL IM ONE (11:32)
[2018-01-08] MEDS ORDERED: LEVOFLOXACIN 750 MG TAB PO SCH (12:00)
[2018-01-08 12:27] LABS: Glucose,Whole Blood 271 mg/dL (75-99)
--- NOTE | 2018-01-08 14:20 | P.CONS ---
History of Present Illness - Reason for Consult Consult date: 01/08/18 Extensive multifocal pneumonia in immunocompromised host - History of Present Illness This is a 53-year-old female patient known to ID service as she was seen during her hospitalization in July of this year. At that time she was treated for acute asthma exacerbation complicated by influenza B tracheobronchitis. ID was consulted regarding a cellulitis of the lower extremities. Patient was discharged home on Keflex. Regarding her legs, patient states that they occasionally get red but not a significant problem at this time. Patient states that she has had for about the last month difficulty with ambulating very far and early fatigue and shortness of breath. She states she has been sick for about one week or more with fever and worsening shortness of breath along with cough. She came into [facility] emergency center and on CAT scan of the chest done on 01/06 showed new extensive bilateral pulmonary airspace infiltrate consistent with acute asthma. Increased hair a tracheal adenopathy. She was originally treated with Levaquin and has been switched over to meropenem by Dr. Rubalcava. Patient is also been febrile with pancytopenia. Mycoplasma pneumoniae IgM was normal and Legionella antigen was not detected. Flow cytology recommends consideration of a marrow examination. Consult has been added for oncology. Patient has had ongoing difficulty with hypoxia and remains on high flow nasal cannula at 10 L pulse oxing 86%. She states she becomes extremely winded is getting to the commode chair. Her course has been complicated by episode of epistaxis which is now controlled and also initially vomiting which is also been resolved. She does state that she has 4 episodes of diarrhea today. Review of Systems All systems: negative Constitutional: Reports chills, Reports fatigue, Reports fever Eyes: denies blurred vision, denies pain Ears, nose, mouth and throat: Reports epistaxis, Denies dental pain, Denies headache, Denies mouth pain, Denies sore throat, Denies vertigo Cardiovascular: Reports decreased exercise tolerance, Reports dyspnea on exertion, Reports leg edema, Reports shortness of breath, Denies chest pain, Denies lightheadedness, Denies syncope Respiratory: Reports dyspnea, Denies cough, Denies cough with sputum, Denies excessive sputum, Denies hemoptysis, Denies home oxygen Gastrointestinal: Reports nausea, Reports vomiting, Denies abdominal pain, Denies diarrhea Genitourinary: Denies dysuria, Denies hematuria Musculoskeletal: Denies myalgias Integumentary: Denies pruritus, Denies rash Neurological: Denies numbness, Denies weakness Psychiatric: Denies anxiety, Denies depression Endocrine: Denies fatigue, Denies weight change Past Medical History Past Medical History: Asthma, Diabetes Mellitus, GERD/Reflux, Hyperlipidemia, Hypertension, Thyroid Disorder Additional Past Medical History / Comment(s): Chronic back pain, neuropathy L hand, L hand 2nd and 3rd fingers are "locking up" at times, carpal tunnel right hand, hypothyroid, iron deficiency anemia, insomnia, sinus problems; pt recently diagnosed with diverticulitis History of Any Multi-Drug Resistant Organisms: None Reported Past Surgical History: Adenoidectomy, Heart Catheterization, Tonsillectomy, Tubal Ligation Additional Past Surgical History / Comment(s): carpel tunnel right wrist, bilateral cataract removal, bilateral laser eye surgery/lens implants, colonoscopy, epidural injections with last time being 1 week ago. Past Anesthesia/Blood Transfusion Reactions: No Reported Reaction Past Psychological History: Anxiety, Depression Additional Psychological History / Comment(s): Pt states her anxiety and depression are managed with her medications. She lives alone and is independent. No experience. No international travel. Pet dogs in the home cared for by significant other. Is not a current tobacco smoker or significant alcohol user Smoking Status: Never smoker Past Alcohol Use History: None Reported Past Drug Use History: None Reported - Past Family History Mother Family Medical History: Cancer Father Family Medical History: No Reported History Additional Family Medical History / Comment(s): Father is living. Medications and Allergies Home Medications Medication Instructions Recorded Confirmed Type Escitalopram Oxalate [Lexapro] 30 mg PO QAM 05/04/16 01/05/18 History Ferrous Sulfate [Iron (65 MG 325 mg PO DAILY 05/04/16 01/05/18 History Elemental)] Omeprazole [PriLOSEC] 20 mg PO AC-BID 05/04/16 01/05/18 History Aspirin [Adult Low Dose Aspirin EC] 81 mg PO DAILY 10/26/16 01/05/18 History Atorvastatin [Lipitor] 20 mg PO DAILY 10/26/16 01/05/18 History Fluticasone Nasal [place] [Flonase 1 spray EA NOSTRIL DAILY 10/26/16 01/05/18 History Nasal [place]] Loratadine [Claritin] 10 mg PO DAILY 10/26/16 01/05/18 History Zolpidem [Ambien] 10 mg PO HS 10/26/16 01/05/18 History Furosemide [Lasix] 20 mg PO BID 08/19/17 01/05/18 History Gabapentin [Neurontin] 300 mg PO TID 08/19/17 01/05/18 History Levothyroxine Sodium [Synthroid] 125 mcg PO DAILY 08/19/17 01/05/18 History Nystatin 100,000 Unit/gm Powd 1 applic TOPICAL BID PRN 08/19/17 01/05/18 History [Mycostatin Powder] Potassium Chloride [Klor-Con 20] 20 meq PO BID 08/19/17 01/05/18 History traMADol HCL [Ultram] 50 mg PO Q6HR PRN #1 tab 08/23/17 01/05/18 Rx Calcium Carbonate/Vitamin D3 1 tab PO DAILY 10/08/17 01/05/18 History [Calcium 600-Vit D3 400 Caplet] Metoprolol Tartrate [Lopressor] 50 mg PO BID 10/08/17 01/05/18 History Montelukast [Singulair] 10 mg PO HS 10/08/17 01/05/18 History Naproxen 500 mg PO DAILY PRN 10/08/17 01/05/18 History Albuterol Inhaler [Ventolin Hfa 2 puff INHALATION RT-QID PRN 10/29/17 01/05/18 History Inhaler] Budesonide/Formoterol Fumarate 2 puff INHALATION RT-BID 10/29/17 01/05/18 History [Symbicort 160-4.5 Mcg Inhaler] Ipratropium-Albuterol Nebulize 3 ml INHALATION RT-QID PRN 10/29/17 01/05/18 History [Duoneb 0.5 mg-3 mg/3 ml Soln] busPIRone HCl [Buspar] 5 mg PO BID 10/29/17 01/05/18 History Cyanocobalamin (Vitamin B-12) 1,000 mcg PO DAILY 90 Days #90 01/08/18 Rx [Vitamin B-12] tablet Allergies Allergy/AdvReac Type Severity Reaction Status Date / Time Penicillins Allergy Rash/Hives Verified 01/05/18 13:18 Physical Exam Vitals: Vital Signs Temp Pulse Pulse Resp BP Pulse Ox 07/18/18 12:30 84 01/08/18 12:19 84 01/08/18 08:01 80 01/08/18 07:42 80 01/08/18 07:00 97.0 F L 73 20 110/69 91 L 01/07/18 23:00 98.6 F 77 20 126/74 91 L 01/07/18 21:11 86 01/07/18 20:58 86 01/07/18 17:31 82 01/07/18 17:16 82 01/07/18 14:57 100.7 F H 84 20 114/63 91 L Intake and Output 01/07/18 01/08/18 01/08/18 22:59 06:59 14:59 Other: # Voids 3 2 Gen: This is a morbidly obese 53-year-old female. She is sitting in a chair at the bedside and is able to speak in full sentences with mild dyspnea HEENT: Head is atraumatic, normocephalic. Pupils equal, round. Sclerae is anicteric. Conjunctiva pink. Mucous members of the mouth are moist. No thrush noted. NECK: Supple. No JVD. No lymphadenopathy. No thyromegaly. LUNGS: Diminished bilaterally. No wheezes. Mild intercostal retractions. HEART: Regular rate and rhythm. No murmur. ABDOMEN: Soft. Bowel sounds are present. No masses. No tenderness. EXTREMITIES: Trace bilateral pedal edema. No calf tenderness. Dorsalis pedis + 2 bilaterally. NEUROLOGICAL: Patient is awake, alert and oriented x3. Cranial nerves 2 through 12 are grossly intact. Results Results: Laboratory Results WBC 2.5 k/uL (3.8-10.6) L 01/07/18 14:45 RBC 3.04 m/uL (3.80-5.40) L 01/07/18 14:45 Hgb 9.5 gm/dL (11.4-16.0) L 01/07/18 14:45 Hct 29.3 % (34.0-46.0) L 01/07/18 14:45 MCV 96.3 fL (80.0-100.0) 01/07/18 14:45 MCH 31.3 pg (25.0-35.0) 01/07/18 14:45 MCHC 32.5 g/dL (31.0-37.0) 01/07/18 14:45 RDW 14.6 % (11.5-15.5) 01/07/18 14:45 Plt Count 121 k/uL (150-450) L 01/07/18 14:45 Neutrophils % (Manual) 34 % 01/07/18 14:45 Band Neutrophils % 1 % 01/05/18 08:50 Lymphocytes % (Manual) 37 % 01/07/18 14:45 Monocytes % (Manual) 22 % 01/07/18 14:45 Eosinophils % (Manual) 1 % 01/07/18 14:45 Basophils % (Manual) 1 % 01/05/18 08:50 Blast Cells % 7 % 01/07/18 14:45 Neutrophils # (Manual) 0.85 k/uL (1.3-7.7) L 01/07/18 14:45 Lymphocytes # (Manual) 0.93 k/uL (1.0-4.8) L 01/07/18 14:45 Monocytes # (Manual) 0.55 k/uL (0-1.0) 01/07/18 14:45 Eosinophils # (Manual) 0.03 k/uL (0-0.7) 01/07/18 14:45 Basophils # (Manual) 0.03 k/uL (0-0.2) 01/05/18 08:50 Blast Cells # (Man) 0.18 k/uL (0) H 01/07/18 14:45 Nucleated RBCs 0 /100 WBC (0-0) 01/07/18 14:45 Manual Slide Review Performed 01/07/18 14:45 Pathologist Review See comment A 01/05/18 08:50 RBC Morphology Normal 01/04/18 20:00 Poikilocytosis (manual Present 01/06/18 08:35 PT 10.1 sec (9.0-12.0) 01/04/18 20:00 INR 1.0 (<1.2) 01/04/18 20:00 APTT 22.2 sec (22.0-30.0) 01/04/18 20:00 Sample Site RAD 01/06/18 15:55 ABG pH 7.41 (7.35-7.45) 01/06/18 15:55 ABG pCO2 41 mmHg (35-45) 01/06/18 15:55 ABG pO2 62 mmHg (83-108) L 01/06/18 15:55 ABG HCO3 26 mmol/L (21-25) H 01/06/18 15:55 ABG Total CO2 27 mmol/L (19-24) H 01/06/18 15:55 ABG O2 Saturation 92.1 % (94-97) L 01/06/18 15:55 ABG Base Excess 1.2 mmol/L 01/06/18 15:55 Bk Test Yes 01/06/18 15:55 FiO2 60 % 01/06/18 15:55 Sodium 137 mmol/L (137-145) 01/07/18 14:45 Potassium 4.1 mmol/L (3.5-5.1) 01/07/18 14:45 Chloride 100 mmol/L (98-107) 01/07/18 14:45 Carbon Dioxide 27 mmol/L (22-30) 01/07/18 14:45 Anion Gap 10 mmol/L 01/07/18 14:45 BUN 14 mg/dL (7-17) 01/07/18 14:45 Creatinine 0.90 mg/dL (0.52-1.04) 01/07/18 14:45 Est GFR (CKD-EPI)AfAm 84 (>60 ml/min/1.73 sqM) 01/07/18 14:45 Est GFR (CKD-EPI)NonAf 73 (>60 ml/min/1.73 sqM) 01/07/18 14:45 Glucose 139 mg/dL (74-99) H 01/07/18 14:45 POC Glucose (mg/dL) 271 mg/dL (75-99) H 01/08/18 12:18 POC Glu [employer] ID Maribel Ventura 01/08/18 12:[address] Glu mg/dL 177 01/05/18 08:50 Hemoglobin A1c 7.8 % (4.0-6.0) H 01/05/18 08:50 Lactic Ac Sepsis Rflx Y 01/04/18 20:51 Plasma Lactic Acid [place] 0.8 mmol/L (0.7-2.0) 01/04/18 23:55 Calcium 8.3 mg/dL (8.4-10.2) L 01/07/18 14:45 Total Bilirubin 1.1 mg/dL (0.2-1.3) 01/04/18 20:00 AST 28 U/L (14-36) 01/04/18 20:00 ALT 33 U/L (9-52) 01/04/18 20:00 Alkaline Phosphatase 82 U/L (38-126) 01/04/18 20:00 Total Creatine Kinase 49 U/L (30-135) 01/04/18 20:00 CK-MB (CK-2) <0.2 ng/mL (0.0-2.4) 01/04/18 20:00 CK-MB (CK-2) Rel Index 01/04/18 20:00 Troponin I <0.012 ng/mL (0.000-0.034) 01/04/18 20:00 NT-Pro-B Natriuret Pep 576 pg/mL 01/06/18 08:35 Total Protein 7.2 g/dL (6.3-8.2) 01/04/18 20:00 Albumin 4.1 g/dL (3.5-5.0) 01/04/18 20:00 Urine Color Yellow 01/04/18 20:00 Urine Appearance Clear (Clear) 01/04/18 20:00 Urine pH 7.0 (5.0-8.0) 01/04/18 20:00 Ur Specific [place] 1.010 (1.001-1.035) 01/04/18 20:00 Urine Protein Negative (Negative) 01/04/18 20:00 Urine Glucose (UA) Negative (Negative) 01/04/18 20:00 Urine Ketones Negative (Negative) 01/04/18 20:00 Urine Blood Negative (Negative) 01/04/18 20:00 Urine Nitrite Negative (Negative) 01/04/18 20:00 Urine Bilirubin Negative (Negative) 01/04/18 20:00 Urine Urobilinogen <2.0 mg/dL (<2.0) 01/04/18 20:00 Ur Leukocyte Esterase Negative (Negative) 01/04/18 20:00 Urine Legionella Ag Not detected (Not detected) 01/06/18 16:51 Mycoplasma pneumon IgM 0.22 INDEX (<=0.90) 01/06/18 08:35 Flow Results See Pathology Report 01/05/18 08:50 CBC & Chem 7: 01/07/18 14:45 01/07/18 14:45 Labs: Abnormal Lab Results - Last 24 Hours (Table) 01/07/18 01/07/18 01/07/18 Range/Units 14:45 14:45 20:58 WBC 2.5 L (3.8-10.6) k/uL RBC 3.04 L (3.80-5.40) m/uL Hgb 9.5 L (11.4-16.0) gm/dL Hct 29.3 L (34.0-46.0) % Plt Count 121 L (150-450) k/uL Neutrophils # (Manual) 0.85 L (1.3-7.7) k/uL Lymphocytes # (Manual) 0.93 L (1.0-4.8) k/uL Blast Cells # (Man) 0.18 H (0) k/uL Glucose 139 H (74-99) mg/dL POC Glucose (mg/dL) 214 H (75-99) mg/dL Calcium 8.3 L (8.4-10.2) mg/dL 01/08/18 01/08/18 Range/Units 07:24 12:18 WBC (3.8-10.6) k/uL RBC (3.80-5.40) m/uL Hgb (11.4-16.0) gm/dL Hct (34.0-46.0) % Plt Count (150-450) k/uL Neutrophils # (Manual) (1.3-7.7) k/uL Lymphocytes # (Manual) (1.0-4.8) k/uL Blast Cells # (Man) (0) k/uL Glucose (74-99) mg/dL POC Glucose (mg/dL) 231 H 271 H (75-99) mg/dL Calcium (8.4-10.2) mg/dL Microbiology - Last 24 Hours (Table) 01/04/18 20:00 Blood Culture - Preliminary Blood No Growth after 72 hours 01/06/18 18:42 Blood Culture - Preliminary Blood No Growth after 24 hours 01/06/18 18:20 Blood Culture - Preliminary Blood No Growth after 24 hours Assessment and Plan Plan: This is a 53-year-old morbidly obese female who presented to the hospital with extensive multifocal probable gram-negative pneumonia, sepsis, pancytopenia. She was initially treated with IV antibiotics in form of Levaquin which is been switched over to meropenem. She has been afebrile for almost 24 hours. Mycoplasma pneumonia and Legionella have been negative. Continue supportive care. Further recommendations as patient progresses. The above dictated assessment and findings were discussed with Dr. Moore. The impression and plan of care have been directed as dictated. Mckenzie Beltran nurse practitioner acting as scribe for Dr. Moore.
--- NOTE | 2018-01-08 15:59 | XR ---
EXAMINATION TYPE: XR chest 2V DATE OF EXAM: 01/08/2018 COMPARISON: Chest x-ray and CT chest from 2 days ago. HISTORY: Pneumonia progress study TECHNIQUE: Frontal and lateral views of the chest are obtained. FINDINGS: There is persistent multifocal areas of groundglass opacity seen bilaterally involving upp er and lower lungs. No large pleural effusion or pneumothorax is seen bilaterally . The cardiac silho uette size remains enlarged. The osseous structures are intact. IMPRESSION: Cardiomegaly with multifocal areas of edema and/or infiltrate affecting bilateral upper and lower lungs. No significant change from 2 days earlier.
[2018-01-08 17:41] LABS: Glucose,Whole Blood 336 mg/dL (75-99)
--- NOTE | 2018-01-08 18:10 | P.CONS ---
History of Present Illness - Reason for Consult Consult date: 01/08/18 leukopenia Requesting physician: Geena Benton - Chief Complaint pneumonia - History of Present Illness Mrs. Brunner is a very pleasant female recently referred to Dr. Atkinson because of leukopenia found during routine blood work. 11/14/17 CBC revealed total wbc of 2.8K,mild neutropenia, MCV 103.2, hemoglobin 12.1, platelets 289K, CMP unremarkable, normal thyroid function, normal serum folate, B12 was low normal 236, her peripheral smear at that time did not reveal any suspicious morphology. in July of 2017 she had mild anemia, normal WBC, all previous CBCs reviewed were unremarkable. She had a CT AP 10/29/17 due to abdominal pain which revealed fatty liver and evidence of diverticulitis. Patient is currently admitted with pneumonia and sepsis, her blood counts have been progressively declining since admit. Patient states not feeling much better than on admit. No recent fevers, appetite fair, still has a cough, no nausea, vomiting, abdominal pain, acute changes in bowel or bladder habits, bleeding, has mild lower extremity swelling, moderate activity intolerance. Review of Systems 10 point review of systems is as stated in HPI Past Medical History Past Medical History: Asthma, Diabetes Mellitus, GERD/Reflux, Hyperlipidemia, Hypertension, Thyroid Disorder Additional Past Medical History / Comment(s): Chronic back pain, neuropathy L hand, L hand 2nd and 3rd fingers are "locking up" at times, carpal tunnel right hand, hypothyroid, iron deficiency anemia, insomnia, sinus problems; pt recently diagnosed with diverticulitis History of Any Multi-Drug Resistant Organisms: None Reported Past Surgical History: Adenoidectomy, Heart Catheterization, Tonsillectomy, Tubal Ligation Additional Past Surgical History / Comment(s): carpel tunnel right wrist, bilateral cataract removal, bilateral laser eye surgery/lens implants, colonoscopy, epidural injections with last time being 1 week ago. Past Anesthesia/Blood Transfusion Reactions: No Reported Reaction Past Psychological History: Anxiety, Depression Additional Psychological History / Comment(s): Pt states her anxiety and depression are managed with her medications. She lives alone and is independent. No experience. No international travel. Pet dogs in the home cared for by significant other. Is not a current tobacco smoker or significant alcohol user Smoking Status: Never smoker Past Alcohol Use History: None Reported Past Drug Use History: None Reported - Past Family History Mother Family Medical History: Cancer Father Family Medical History: No Reported History Additional Family Medical History / Comment(s): Father is living. Medications and Allergies Home Medications Medication Instructions Recorded Confirmed Type Escitalopram Oxalate [Lexapro] 30 mg PO QAM 05/04/16 01/05/18 History Ferrous Sulfate [Iron (65 MG 325 mg PO DAILY 05/04/16 01/05/18 History Elemental)] Omeprazole [PriLOSEC] 20 mg PO AC-BID 05/04/16 01/05/18 History Aspirin [Adult Low Dose Aspirin EC] 81 mg PO DAILY 10/26/16 01/05/18 History Atorvastatin [Lipitor] 20 mg PO DAILY 10/26/16 01/05/18 History Fluticasone Nasal [place] [Flonase 1 spray EA NOSTRIL DAILY 10/26/16 01/05/18 History Nasal [place]] Loratadine [Claritin] 10 mg PO DAILY 10/26/16 01/05/18 History Zolpidem [Ambien] 10 mg PO HS 10/26/16 01/05/18 History Furosemide [Lasix] 20 mg PO BID 08/19/17 01/05/18 History Gabapentin [Neurontin] 300 mg PO TID 08/19/17 01/05/18 History Levothyroxine Sodium [Synthroid] 125 mcg PO DAILY 08/19/17 01/05/18 History Nystatin 100,000 Unit/gm Powd 1 applic TOPICAL BID PRN 08/19/17 01/05/18 History [Mycostatin Powder] Potassium Chloride [Klor-Con 20] 20 meq PO BID 08/19/17 01/05/18 History traMADol HCL [Ultram] 50 mg PO Q6HR PRN #1 tab 08/23/17 01/05/18 Rx Calcium Carbonate/Vitamin D3 1 tab PO DAILY 10/08/17 01/05/18 History [Calcium 600-Vit D3 400 Caplet] Metoprolol Tartrate [Lopressor] 50 mg PO BID 10/08/17 01/05/18 History Montelukast [Singulair] 10 mg PO HS 10/08/17 01/05/18 History Naproxen 500 mg PO DAILY PRN 10/08/17 01/05/18 History Albuterol Inhaler [Ventolin Hfa 2 puff INHALATION RT-QID PRN 10/29/17 01/05/18 History Inhaler] Budesonide/Formoterol Fumarate 2 puff INHALATION RT-BID 10/29/17 01/05/18 History [Symbicort 160-4.5 Mcg Inhaler] Ipratropium-Albuterol Nebulize 3 ml INHALATION RT-QID PRN 10/29/17 01/05/18 History [Duoneb 0.5 mg-3 mg/3 ml Soln] busPIRone HCl [Buspar] 5 mg PO BID 10/29/17 01/05/18 History Cyanocobalamin (Vitamin B-12) 1,000 mcg PO DAILY 90 Days #90 01/08/18 Rx [Vitamin B-12] tablet Allergies Allergy/AdvReac Type Severity Reaction Status Date / Time Penicillins Allergy Rash/Hives Verified 01/05/18 13:18 Physical Exam Vitals: Vital Signs Temp Pulse Pulse Resp BP Pulse Ox 01/08/18 16:21 84 01/08/18 16:14 92 L 01/08/18 16:10 82 01/08/18 15:00 98.1 F 74 18 117/60 90 L 01/08/18 12:30 84 01/08/18 12:19 84 01/08/18 08:01 80 01/08/18 07:42 80 01/08/18 07:00 97.0 F L 73 20 110/69 91 L 01/07/18 23:00 98.6 F 77 20 126/74 91 L 01/07/18 21:11 86 01/07/18 20:58 86 Intake and Output 01/08/18 01/08/18 01/08/18 06:59 14:59 22:59 Other: # Voids 2 2 # Bowel Movements 1 - Constitutional General appearance: cooperative, no acute distress, obese - EENT Eyes: anicteric sclerae, EOMI ENT: hearing grossly normal, normal oropharynx - Neck Neck: no lymphadenopathy - Respiratory Respiratory: bilateral: diminished - Cardiovascular Rhythm: regular Heart sounds: normal: S1, S2 Abnormal Heart Sounds: no systolic murmur, no diastolic murmur, no rub, no S3 Gallop, no S4 Gallop, no click, no other leg Peripheral Edema: bilateral: Trace - Gastrointestinal General gastrointestinal: no absent bowel sounds, no decreased bowel sounds, no distended, no hepatomegaly, no hyperactive bowel sounds, no normal bowel sounds , organomegaly, no rigid, no scaphoid, soft, no splenomegaly, no tenderness, no umbilical hernia, no ventral hernia - Integumentary Integumentary: pale - Neurologic Neurologic: CNII-XII intact - Musculoskeletal Musculoskeletal: strength equal bilaterally - Psychiatric Psychiatric: A&O x's 3, appropriate affect, intact judgment & insight Results CBC & Chem 7: 01/07/18 14:45 01/07/18 14:45 Labs: Abnormal Lab Results - Last 24 Hours (Table) 01/07/18 01/08/18 01/08/18 Range/Units 20:58 07:24 12:18 POC Glucose (mg/dL) 214 H 231 H 271 H (75-99) mg/dL 01/08/18 Range/Units 17:17 POC Glucose (mg/dL) 336 H (75-99) mg/dL Microbiology - Last 24 Hours (Table) 01/04/18 20:00 Blood Culture - Preliminary Blood No Growth after 72 hours 01/06/18 18:42 Blood Culture - Preliminary Blood No Growth after 24 hours 01/06/18 18:20 Blood Culture - Preliminary Blood No Growth after [address] scan - abdomen: report reviewed CT scan - chest: report reviewed CT scan - pelvis: report reviewed Assessment and Plan (1) Pancytopenia Current Visit: Yes Status: Acute Priority: High Code(s): D61.818 - OTHER PANCYTOPENIA SNOMED Code(s): 997487679 Plan: No intervention for pancytopenia at this time. CBC daily. B12 ordered, 1st dose IM. Pt was seen prior to peripheral smear results. Case discussed with Dr. Allen. Blasts are present in the peripheral blood, we will see pt in AM and plan for Bone marrow biopsy and aspirate KAITLIN.
--- NOTE | 2018-01-08 18:14 | P.PN ---
Subjective Progress Note Date: 01/08/18 Principal diagnosis: Extensive multilobar nodular infiltrates, consistent with pneumonia, acute hypoxic respiratory failure Mrs. Brunner is a 53-year-old white female patient of Dr. Nikki Soto who presented to the hospital on 01/04/2018 at 1936 with complaints of a history fever, chills, increasing shortness of breath. She denied any cough, she denied any chest congestion, or wheezing. Has a known history of bronchial asthma, and her last hospitalization was back in August for acute asthma exacerbation secondary to acute influenza B tracheobronchitis and left lower leg cellulitis. Patient had recovered, and was doing well at home. She sees Dr. Dr. Hollingsworth in the pulmonary office for her history of bronchial asthma, and her most recent PFT showed an FEV1 of 68% of predicted, with a 9% improvement post bronchodilator treatment. This was an improvement from her PFT from 2017, which showed severe obstruction with FEV1 of 1.12 L of 43% of predicted, with improvement to 56% of predicted postbronchodilator treatment. Patient is on Singulair, Symbicort, Ventolin inhaler, in addition to Singulair, Claritin, and Flonase. Patient had never been intubated for asthma exacerbation, she is a lifetime nonsmoker, she is not sure what her triggers are. Prior to this episode, she used her rescue inhaler about once a week. Patient did have shaking chills at home, she was short of breath even walking to the bathroom. In the emergency department her initial temperature was 98.4, however through her stay in the hospital, she had been intermittently febrile with fevers as high as 103.4F. Normally does not wear oxygen at baseline, however today she became hypoxemic, with a pulse ox in the low 80s on room air, pulse ox on 4 L per nasal cannula was 86%. Patient also had some left lower quadrant discomfort , abdominal/pelvis CT was completed and showed abnormal prominence of central endometrium could represent trapped fluid in the endometrial canal, abnormal thickening could not be excluded, and nonemergent pelvic ultrasound was recommended. Multifocal groundglass opacities were noted in the lung bases. Chest x-ray showed cardiomegaly and chronic parenchymal changes without suspicious focal airspace opacity. This was compared the CT chest from 2017, which showed mild diffuse bronchial wall thickening persistent with a diagnosis of bronchitis and chronic asthma, and subtle multifocal patchy groundglass infiltrates and possible tree-in-bud densities in the right lower lobe, and distal small airways impaction with mucoid debris. At the time of the CT chest patient was completely asymptomatic. EKG showed normal sinus rhythm. Patient was started on empiric antibiotics in the form of Rocephin and azithromycin, and was admitted for further management. We were consulted today in regards to acute hypoxemic respiratory failure, stat blood gas was obtained on 10 L high flow, and it showed pO2 of 62, pCO2 41, pH of 7.41, consistent with hypoxemic respiratory failure. This morning's chest x-ray showed worsening interstitial changes, and follow-up chest x-ray this afternoon showed cardiomegaly with diffuse interstitial changes, mild pulmonary vascular congestion, findings could be correlated to atypical pneumonia or interstitial pneumonitis. ProBNP was added to this morning's labs and was within normal limits at 576. Labs show initial white count of 3.3, which subsequently decreased to 2.2 through patient's stay, hemoglobin of 11.4, down to 10.4, no evidence of coagulopathy, electrolytes within normal limits, renal profile is normal, initial plasma lactic acid was 2.2, patient was given a liter bolus in the emergency room, and received a maintenance IV fluid rate at 100 ML per hour. He was given a dose of IV Levaquin in the ER, and was subsequently switched to Rocephin and Zithromax on which she remains. Her T-max in the last 24 hours was 101.1F, patient had another episode of low-grade fever this morning with a temp of 100F. He was treated with IV Tylenol, urine and blood cultures remain negative to date. Her other medical history includes diabetes mellitus type 2, morbid obesity, GERD/reflux, hypertension, hyperlipidemia, hypothyroidism, chronic back pain, neuropathy, iron deficiency anemia, insomnia , anxiety, depression. Of note patient states she was recently seen by Dr. Lucero in consultation in regards to low white counts and anemia, and she is supposed to follow-up with him in the fall in regards to the results of testing. On today's evaluation patient is calm and comfortable, she is in no acute distress, in the recliner, on 10 L per high flow nasal cannula, his any cough, denies any chest congestion, denies any phlegm production denies any hemoptysis, denies any chest wall tenderness. We're seeing the patient in regards to acute hypoxemic respiratory failure, and the cause of which is under investigation. On 01/07/2018 she was seen again in follow-up on medical surgical floor. She remains on high flow nasal cannula, currently at 10 L, and the pulse ox remains marginal from 88-93%. Patient still remains very dyspneic, and limited in terms of activity tolerance. She did have intermittent low-grade fevers today, with T-max of 100.7F. CT chest results and films were reviewed by Dr. Wylie today, and showed extensive bilateral pulmonary airspace infiltrates assisted with acute pneumonia, and increased paratracheal adenopathy. Lung sounds are diminished, but no rhonchi, rales or wheezes noted. Patient denies any phlegm production, denies any chest congestion, there is no wheezing. Patient's IV antibiotics have been switched to Levaquin, and the patient received 1 dose. Urine and blood cultures remain negative, Legionella urine antigen and mycoplasma IgM ordered and are pending at this time. Patient did receive a few doses of IV diuretics, with no improvement in oxygenation. Hence we will stop those. There is a concern about a fungal infection versus ALLERGIC bronchopulmonary aspergillosis. Antibiotic coverage will be stepped up and switched over to meropenem and vancomycin. We'll request consultation from hematology and infectious disease service. On 01/08/2018 patient seen in follow-up. Breathing easier today, although patient still becomes quite dyspneic with any exertion, even walking to the commode. Still requiring 10 L per high flow nasal cannula, and her pulse ox remains marginal at 90-92%. On sounds are diminished, with some crackles at the left lower base. No rhonchi, no wheezing, no cough, no phlegm production. No hemoptysis, no chest wall tenderness. Her last fever was yesterday at 1457, with a temp of 100.7F. Today we switch the antibiotic coverage to meropenem and vancomycin, she was seen by ID service, mycoplasma IgM and Legionella antigen were not detected. Cultures remain negative. Repeat chest x-ray showed cardiomegaly with multifocal areas of edema and/or infiltrates affecting bilateral upper and lower lungs, no significant change from 2 days prior. Objective - Vital Signs Vital signs: Vital Signs Temp 98.1 F 01/08/18 15:00 Pulse 84 01/08/18 16:21 Resp 18 01/08/18 15:00 BP 117/60 01/08/18 15:00 Pulse Ox 92 L 01/08/18 16:14 Intake & Output 01/07/18 01/08/18 01/08/18 18:59 06:59 18:59 Intake Total 600 Balance 600 Intake: Oral 600 Other: Voiding Method Bedside Commode # Voids 6 2 2 # Bowel Movements 2 1 - Exam - Constitutional Alert, pleasant, 53-year-old obese white female, sitting in the recliner, currently on 50% Ventimask General appearance: morbidly obese, no acute distress - EENT Eyes: PERRLA, dentition normal ENT: NA/AT - Neck Neck: no lymphadenopathy, normal ROM Carotids: bilateral: upstroke normal Thyroid: bilateral: normal size - Respiratory Respiratory: bilateral: diminished, limited rales at the left lower base, no rhonchi or wheezes noted - Cardiovascular Rhythm: regular Heart sounds: normal: S1, S2 leg Peripheral Edema: bilateral: Trace ankle Peripheral Edema: bilateral: Trace dorsalis pedis Peripheral Pulses: bilateral: Normal radial pulse Peripheral Pulses: bilateral: Normal - Gastrointestinal General gastrointestinal: no organomegaly, soft, no tenderness - Integumentary Integumentary: normal turgor - Neurologic Neurologic: CNII-XII intact - Musculoskeletal Musculoskeletal: strength equal bilaterally - Psychiatric Psychiatric: A&O x's 3, appropriate affect, intact judgment & insight - Labs CBC & Chem 7: 01/07/18 14:45 01/07/18 14:45 Labs: Abnormal Lab Results - Last 24 Hours (Table) 01/07/18 01/08/18 01/08/18 Range/Units 20:58 07:24 12:18 POC Glucose (mg/dL) 214 H 231 H 271 H (75-99) mg/dL 01/08/18 Range/Units 17:17 POC Glucose (mg/dL) 336 H (75-99) mg/dL Microbiology - Last 24 Hours (Table) 01/04/18 20:00 Blood Culture - Preliminary Blood No Growth after 72 hours 01/06/18 18:42 Blood Culture - Preliminary Blood No Growth after 24 hours 01/06/18 18:20 Blood Culture - Preliminary Blood No Growth after 24 hours Assessment and Plan Plan: Assessment: #1. Acute hypoxemic respiratory failure related to acute extensive bilateral infiltrates, consistent with acute pneumonia, community acquired, and there is a concern for fungal infection in this immunocompromised host #2. Intermittent fever, chills, shortness of breath related to the above #3. Leukopenia, rule out sepsis. This has been under investigation on an outpatient basis, the patient had consultations with Dr. Lucero, and Dr. Rapp , the results of which are unavailable #4. Mild lactic acidosis present on admission, with lactic acid level of 2.2, and the patient was fluid resuscitated with 1 L of crystalloids, and received maintenance IV fluids at a rate of 100 ML per hour, subsequent lactic acid was down to 0.8 #5. Abdominal pain, CT of abdomen and pelvis showed abnormal prominence of the central endometrium, or could possibly represent trapped fluid in the endometrial canal and abnormal endometrial thickening, be followed up with nonemergent pelvic ultrasound #6. Chronic bronchial asthma, and her latest PFT showed FEV1 of 68% of predicted, with post bronchodilator response up to 73% of predicted, and patient was diagnosed with adult onset genetic asthma. This seems to be stable right now #7. Hypertension, hyperlipidemia #8. Diabetes mellitus type 2 #9. Morbid obesity with a BMI of 54.8 kg/m #10. Chronic back pain #11. GERD/reflux on omeprazole #12. Hypothyroidism #13. Anxiety, depression #14. Lifetime nonsmoker #15. Exertional dyspnea, limited exercise capacity, patient had a 6 minute walk test in the pulmonary office, and became severely short of breath after 3 laps, and desatted to 88%. Continue nebulized bronchodilators, continue Symbicort. Plan: Continue current plan of treatment, patient has been seen by ID service, and they remains on meropenem and vancomycin for antibiotic coverage. Cultures remain negative, mycoplasma IgM was negative, Legionella antigen was not detected. Requiring high flow oxygen, patient reports feeling a bit better. Last episode of fever was over 24 hours ago, no fever no chills. Today's chest x-ray did not show significant improvement in appearance of nodule bilateral infiltrates. Will still consider bronchoscopy with BAL in the next 24 hours if there is no significant improvement I performed a history & physical examination of the patient and discussed their management with my nurse practitioner, Flori Colunga. I reviewed the nurse practitioner's note and agree with the documented findings and plan of care. Lung sounds are positive for initial breath sounds with limited crackles at the left lower lobe. The findings and the impression was discussed with the patient. I attest to the documentation by the nurse practitioner. Time with Patient: Less than 30
--- NOTE | 2018-01-08 18:22 | P.PN ---
Subjective Progress Note Date: 01/07/18 Progress note being dictated for Dr. Amos. Interval history: Patient is a 53-year-old male with a known history of hypertension, diabetes type II and previous history of diverticulitis came to ER with complaints of left-sided abdominal pain along with fever and chills worsening for the past 3 days. Patient was also having increased shortness of breath and chest pain with deep breathing. Patient does have cough but without much sputum production. No nausea vomiting. No diarrhea. Patient thought that she was having diverticulitis again and came to the hospital for further evaluation. Patient had diverticular [place] 2 months ago. Denied any sick contacts. No travel. Patient felt generally weak and generalized body aches. Patient was febrile on admission. Denies any leg swelling, back pain, peripheral paresthesias, headaches, sore throat, upper respiratory symptoms. T-max 101.8 Chest x-ray showed cardiomegaly and chronic changes without suspicious acute infiltrate. CT of abdomen pelvis showed new multifocal groundglass opacities in the lung base could reflect new multifocal pneumonia. Correlate clinically Attention to her uterus abnormal prominence of the central endometrium could reflect trapped fluid in the endometrial canal., Abnormal thickening cannot be excluded. Advise nonemergent pelvic ultrasound follow-up tofurther assess. Review of Systems Constitutional: Patient does have fever and chills and muscle aches and generalized body weakness Abdomen: Patient denied nausea vomiting. Patient does have abdominal pain. Cardiovascular: Patient denies any chest pain or short of breath no palpitations. Respiratory: Cough without sputum production. Patient does have shortness of breath Neurologic: Patient denied any numbness or tingling headache. Musculoskeletal: Patient denies any complaints of joint swelling or deformity. Skin: Negative Psychiatric: Negative Endocrine: No heat or cold intolerance. No recent weight gain. Genitourinary: No dysuria or hematuria. All other 14 point ROS negative except the above 01/06/2018 denies cough, desatted, maintaining O2 sats of 86-87% on 4 L nasal cannula, respiratory rate 20, tachycardic. ABGs ordered. Sitting up at side of bed, conversing without shortness of breath. Currently afebrile, T-max 101.1 , blood cultures pending.Denies chest pain, palpitations or increasing shortness of breath. Pancytopenia currently being worked up outpatient with Dr. Atkinson. 01/07/18 T-max 101.7.dyspnea continues ,currently maintaining O2 sats in the high 80s to low 90s on 10 L high flow nasal cannula O2 . Currently wearing 50% Ventimask. Short of breath with minimal exertion, limited reserve. CT reporting new extensive bilateral pulmonary airspace infiltrates compared to prior exam, acute pneumonia, increased paratracheal adenopathy. Mycoplasma IgM , Legionella urine antigen pending.Echo reporting low normal LV function, EF 50- 55%. Developed nosebleed earlier, subsided. Received Levaquin, now receiving Merrem. Infectious disease consulted. Objective - Vital Signs Vital signs: Vital Signs Temp 100.7 F H 01/07/18 14:57 Pulse 82 01/07/18 17:16 Resp 20 01/07/18 14:57 BP 114/63 01/07/18 14:57 Pulse Ox 91 L 01/07/18 14:57 Intake & Output 01/06/18 01/07/18 01/07/18 18:59 06:59 18:59 Intake Total 1610 600 Balance 1610 600 Intake: Intake, IV Titration 410 Amount Azithromycin 500 mg In 250 Dextrose 5% in Water 250 ml @ 125 mls/hr IVPB DAILY [facility] Rx#:[id number] Sodium Chloride 0.9% 1, 160 000 ml @ 20 mls/hr IV . Q24H [facility] Rx#:[id number] Oral 1200 600 Other: Voiding Method Bedside Commode # Voids 1 3 6 # Bowel Movements 2 - Exam PHYSICAL EXAMINATION: Patient is sitting up in chaircomfortably, no acute distress, awake alert and oriented. HEENT: Normocephalic. Neck is supple. Pupils reactive. Nostrils clear. Oral cavity is moist. Neck reveals no JVD, carotid bruits, or thyromegaly. CHEST EXAMINATION: Trachea is central. Symmetrical expansion. Lung reyna clear to auscultation and percussion. Bilateral bases diminished. CARDIAC: Normal S1, S2 with no gallops. No murmurs ABDOMEN: Soft. Bowel sounds normal. No organomegaly. No abdominal bruits. Extremities: reveal mild edema. No clubbing or cyanosis Neurologically awake, alert, oriented x3 with well-coordinated movements. No focal deficits noted Skin: No rash or skin lesions. Psychiatric: Coperative. Nonsuicidal Musculoskeletal: No joint swelling or deformity. Normal range of motion. - Labs CBC & Chem 7: 01/07/18 14:45 01/07/18 14:45 Labs: Abnormal Lab Results - Last 24 Hours (Table) 01/06/18 01/07/18 01/07/18 Range/Units 21:08 07:12 11:59 WBC (3.8-10.6) k/uL RBC (3.80-5.40) m/uL Hgb (11.4-16.0) gm/dL Hct (34.0-46.0) % Plt Count (150-450) k/uL Neutrophils # (Manual) (1.3-7.7) k/uL Lymphocytes # (Manual) (1.0-4.8) k/uL Blast Cells # (Man) (0) k/uL Glucose (74-99) mg/dL POC Glucose (mg/dL) 137 H 127 H 147 H (75-99) mg/dL Calcium (8.4-10.2) mg/dL 01/07/18 01/07/18 Range/Units 14:45 14:45 WBC 2.5 L (3.8-10.6) k/uL RBC 3.04 L (3.80-5.40) m/uL Hgb 9.5 L (11.4-16.0) gm/dL Hct 29.3 L (34.0-46.0) % Plt Count 121 L (150-450) k/uL Neutrophils # (Manual) 0.85 L (1.3-7.7) k/uL Lymphocytes # (Manual) 0.93 L (1.0-4.8) k/uL Blast Cells # (Man) 0.18 H (0) k/uL Glucose 139 H (74-99) mg/dL POC Glucose (mg/dL) (75-99) mg/dL Calcium 8.3 L (8.4-10.2) mg/dL Microbiology - Last 24 Hours (Table) 01/04/18 20:00 Blood Culture - Preliminary Blood No Growth after 48 hours Assessment and Plan Assessment: Sepsis secondary to acute bibasilar multifocal pneumonia, community-acquired, Mycoplasma IgM, Legionella urine antigen pending, possible aspergillosis. Acute hypoxic respiratory failure secondary to the above Lactic acidosis 2.1 admission resolved now Pancytopenia. Patient is being worked up for leukemia and Dr. Atkinson's office Abdominal pain possibly related to coughing. Resolved now Asthma Hypertension Hyperlipidemia Hypothyroidism Chronic back pain Iron deficiency anemia Recent history of acute diverticulitis Anxiety and depression\ Morbid obesity with BMI 54.8 DVT prophylaxis Plan: Continue on current medication regime ,monitoring and symptomatic treatment. Infectious disease and hematology consult in place with recommendations pending. Maintain antibiotics, nebulized bronchodilators, steroids.Close monitoring of Blood cultures. Bronchoscopy being discussed if no improvement. The impression and plan of care has been dictated as directed. : I performed a history and examination of this patient, discussed the same with the dictator. I agree with the dictator's note ,documented as a scribe. Any additional findings or plans will be noted.
--- NOTE | 2018-01-08 18:43 | P.PN ---
Subjective Progress Note Date: 01/08/18 Progress note being dictated for Dr. Amos. Interval history: Patient is a 53-year-old male with a known history of hypertension, diabetes type II and previous history of diverticulitis came to ER with complaints of left-sided abdominal pain along with fever and chills worsening for the past 3 days. Patient was also having increased shortness of breath and chest pain with deep breathing. Patient does have cough but without much sputum production. No nausea vomiting. No diarrhea. Patient thought that she was having diverticulitis again and came to the hospital for further evaluation. Patient had diverticular [place] 2 months ago. Denied any sick contacts. No travel. Patient felt generally weak and generalized body aches. Patient was febrile on admission. Denies any leg swelling, back pain, peripheral paresthesias, headaches, sore throat, upper respiratory symptoms. T-max 101.8 Chest x-ray showed cardiomegaly and chronic changes without suspicious acute infiltrate. CT of abdomen pelvis showed new multifocal groundglass opacities in the lung base could reflect new multifocal pneumonia. Correlate clinically Attention to her uterus abnormal prominence of the central endometrium could reflect trapped fluid in the endometrial canal., Abnormal thickening cannot be excluded. Advise nonemergent pelvic ultrasound follow-up tofurther assess. Review of Systems Constitutional: Patient does have fever and chills and muscle aches and generalized body weakness Abdomen: Patient denied nausea vomiting. Patient does have abdominal pain. Cardiovascular: Patient denies any chest pain or short of breath no palpitations. Respiratory: Cough without sputum production. Patient does have shortness of breath Neurologic: Patient denied any numbness or tingling headache. Musculoskeletal: Patient denies any complaints of joint swelling or deformity. Skin: Negative Psychiatric: Negative Endocrine: No heat or cold intolerance. No recent weight gain. Genitourinary: No dysuria or hematuria. All other 14 point ROS negative except the above 01/06/2018 denies cough, desatted, maintaining O2 sats of 86-87% on 4 L nasal cannula, respiratory rate 20, tachycardic. ABGs ordered. Sitting up at side of bed, conversing without shortness of breath. Currently afebrile, T-max 101.1 , blood cultures pending.Denies chest pain, palpitations or increasing shortness of breath. Pancytopenia currently being worked up outpatient with Dr. Atkinson. 01/07/18 T-max 101.7.dyspnea continues ,currently maintaining O2 sats in the high 80s to low 90s on 10 L high flow nasal cannula O2 . Currently wearing 50% Ventimask. Short of breath with minimal exertion, limited reserve. CT reporting new extensive bilateral pulmonary airspace infiltrates compared to prior exam, acute pneumonia, increased paratracheal adenopathy. Mycoplasma IgM , Legionella urine antigen pending.Echo reporting low normal LV function, EF 50- 55%. Developed nosebleed earlier, subsided. Received Levaquin, now receiving Merrem. Infectious disease consulted. 01/08/2018 continues on high flow nasal cannula 10 L. chest x-ray with no significant change .afebrile, T-max 100.7. Steroids initiated yesterday, hyperglycemic. flow cytometry pathology reporting myeloid blasts with consideration of marrow examination. Mycoplasma IgM antibody and Legionella not detected. Multiple episodes of diarrhea reported. Objective - Vital Signs Vital signs: Vital Signs Temp 98.1 F 01/08/18 15:00 Pulse 84 01/08/18 16:21 Resp 18 01/08/18 15:00 BP 117/60 01/08/18 15:00 Pulse Ox 92 L 01/08/18 16:14 Intake & Output 01/07/18 01/08/18 01/08/18 18:59 06:59 18:59 Intake Total 600 Balance 600 Intake: Oral 600 Other: Voiding Method Bedside Commode # Voids 6 2 2 # Bowel Movements 2 1 - Exam PHYSICAL EXAMINATION: Patient is sitting up in chaircomfortably, no acute distress, awake alert and oriented. HEENT: Normocephalic. Neck is supple. Pupils reactive. Nostrils clear. Oral cavity is moist. Neck reveals no JVD, carotid bruits, or thyromegaly. CHEST EXAMINATION: Trachea is central. Symmetrical expansion. Lung reyna clear to auscultation and percussion. Bilateral bases diminished. CARDIAC: Normal S1, S2 with no gallops. No murmurs ABDOMEN: Soft. Bowel sounds normal. No organomegaly. No abdominal bruits. Extremities: reveal mild edema. No clubbing or cyanosis Neurologically awake, alert, oriented x3 with well-coordinated movements. No focal deficits noted Skin: No rash or skin lesions. Musculoskeletal: No joint swelling or deformity. Normal range of motion. Microbiology 01/04/18 20:00 Blood Blood Culture - Preliminary No Growth after 72 hours 01/06/18 18:42 Blood Blood Culture - Preliminary No Growth after 24 hours 01/06/18 18:20 Blood Blood Culture - Preliminary No Growth after 24 hours 01/04/18 20:00 Urine,Voided Urine Culture - Final - Labs CBC & Chem 7: 01/07/18 14:45 01/07/18 14:45 Labs: Abnormal Lab Results - Last 24 Hours (Table) 01/07/18 01/08/18 01/08/18 Range/Units 20:58 07:24 12:18 POC Glucose (mg/dL) 214 H 231 H 271 H (75-99) mg/dL 01/08/18 Range/Units 17:17 POC Glucose (mg/dL) 336 H (75-99) mg/dL Microbiology - Last 24 Hours (Table) 01/04/18 20:00 Blood Culture - Preliminary Blood No Growth after 72 hours 01/06/18 18:42 Blood Culture - Preliminary Blood No Growth after 24 hours 01/06/18 18:20 Blood Culture - Preliminary Blood No Growth after 24 hours Assessment and Plan Assessment: Sepsis secondary to acute bibasilar multifocal pneumonia, community-acquired, Mycoplasma IgM antibody and Legionella not detected. Acute hypoxic respiratory failure secondary to the above Lactic acidosis 2.1 admission resolved now Pancytopenia. Patient is being worked up for leukemia and Dr. Atkinson's office.flow cytometry pathology reporting myeloid blasts with consideration of marrow examination. Abdominal pain possibly related to coughing. Resolved now Asthma Hypertension Hyperlipidemia Hypothyroidism Chronic back pain Iron deficiency anemia Recent history of acute diverticulitis Anxiety and depression\ Morbid obesity with BMI 54.8 DVT prophylaxis Diabetes mellitus, elevated hemoglobin A1c 7.8. Hyperglycemia, steroid-induced. Diarrhea, rule out C. diff Plan: Continue on current medication regime ,monitoring and symptomatic treatment. Antibiotics as per Infectious disease. hematology consult in place with recommendations pending. Maintain nebulized bronchodilators, steroids.Close monitoring of Blood cultures. Potential Bronchoscopy tomorrow. Lantus, pre-meal NovoLog added to med regime. Close monitoring of Accu- Cheks. Patient reports several episodes of diarrhea, C. difficile colitis culture ordered. Prognosis guarded in this immunocompromised patient. The impression and plan of care has been dictated as directed. : I performed a history and examination of this patient, discussed the same with the dictator. I agree with the dictator's note ,documented as a scribe. Any additional findings or plans will be noted.
[2018-01-08 21:28] LABS: Glucose,Whole Blood 401 mg/dL (75-99)
[2018-01-08 21:28] LABS: Glucose,Whole Blood 422 mg/dL (75-99)
[2018-01-08] MEDS: INSULIN DETEMIR 100 UNIT/ML 10 ML VIAL SQ SCH (21:31)
[2018-01-08] MEDS: MONTELUKAST 10 MG TAB PO SCH (21:32)
[2018-01-08] MEDS: ZOLPIDEM 10 MG TAB PO SCH (21:33)
--- NOTE | 2018-01-08 22:45 | P.CON ---
Consult Note - . Consult date: 01/08/18 Assessment/Plan:: This is a 53-year-old female patient known to ID service as she was seen during her hospitalization in July of this year. At that time she was treated for acute asthma exacerbation complicated by influenza B tracheobronchitis. ID was consulted regarding a cellulitis of the lower extremities. Patient was discharged home on Keflex. Regarding her legs, patient states that they occasionally get red but not a significant problem at this time. Patient states that she has had for about the last month difficulty with ambulating very far and early fatigue and shortness of breath. She states she has been sick for about one week or more with fever and worsening shortness of breath along with cough. She came into [facility] emergency center and on CAT scan of the chest done on 01/06 showed new extensive bilateral pulmonary airspace infiltrate consistent with acute asthma. Increased hair a tracheal adenopathy. She was originally treated with Levaquin and has been switched over to meropenem by Dr. Benton. Patient is also been febrile with pancytopenia. Mycoplasma pneumoniae IgM was normal and Legionella antigen was not detected. Flow cytology recommends consideration of a marrow examination. Consult has been added for oncology. Patient has had ongoing difficulty with hypoxia and remains on high flow nasal cannula at 10 L pulse oxing 86%. She states she becomes extremely winded is getting to the commode chair. Her course has been complicated by episode of epistaxis which is now controlled and also initially vomiting which is also been resolved. She does state that she has 4 episodes of diarrhea today. Please see the consult note as dictated by nurse practitioner Mrs. Mckenzie Beltran. This pleasant 53-year-old woman is have underlying asthma and last time she was ill she had cellulitis prior to that she had influenza B and exacerbation of her asthma. Now presents with progressive acute illness. Has been seen in the outpatient setting by oncology because of leukopenia. Workup had been started. Patient is not having difficulties with worsening leukopenia anemia and bleeding. She remains acutely ill with pneumonia and is also having difficulties with diarrhea. The patient has now been seen again by oncology and the peripheral smear is markedly abnormal with blasts that are evident and consequently they are planning for the bone marrow biopsy and aspirate as soon as they possibly can. At this time she is on broad-spectrum antibiotic therapy. Her fevers are controlled and she is stable. Certainly if she has acute leukemia will be worried about an Aspergillus infection. Galactomannan antigen testing is requested at this time to guide treatment. I reviewed with evaluation, assessment and plan as dictated by nurse practitioner Mrs. Mckenzie Beltran
[2018-01-09] MEDS: MEROPENEM 2 GM in SODIUM CHLORIDE 0.9% 100 ML IVPB SCH ×3 (00:19→16:53)
[2018-01-09] MEDS: methylPREDNISolone SOD SUCCI 40 MG/ML 1 ML VIAL IV SCH ×3 (00:20→16:53)
[2018-01-09] MEDS: HEPARIN SODIUM,PORCINE 5,000 UNIT/ML 1 ML VIAL SQ SCH ×3 (00:20→16:53)
[2018-01-09 02:43] LABS: Glucose,Whole Blood 375 mg/dL (75-99)
[2018-01-09] MEDS: SODIUM CHLORIDE 0.9% 1,000 ML IV SCH (06:58)
[2018-01-09] MEDS: LEVOTHYROXINE 125 MCG TAB PO SCH (06:58)
[2018-01-09 07:42] LABS: Glucose,Whole Blood 345 mg/dL (75-99)
[2018-01-09] MEDS: INSULIN ASPART 100 UNIT/ML 1 ML 10 ML VIAL SQ SCH ×7 (07:59→20:50)
[2018-01-09] MEDS: PANTOPRAZOLE 40 MG TABLET PO SCH ×2 (08:00→18:06)
[2018-01-09] MEDS: ATORVASTATIN 20 MG TAB PO SCH (08:01)
[2018-01-09] MEDS: POTASSIUM CHLORIDE ER 20 MEQ TAB.ER PO SCH ×2 (08:01→20:49)
[2018-01-09] MEDS: ASPIRIN 81 MG PO SCH (08:01)
[2018-01-09] MEDS: ESCITALOPRAM 10 MG TAB PO SCH (08:02)
[2018-01-09] MEDS: LORATADINE 10 MG TAB PO SCH (08:02)
[2018-01-09] MEDS: FLUTICASONE 50MCG/SPRAY NASAL 16GM EA NOSTRIL SCH (08:02)
[2018-01-09] MEDS: FERROUS SULFATE 325 MG TAB PO SCH (08:02)
[2018-01-09] MEDS: CALCIUM CARB-VIT D 500MG-200UN 1 EACH TAB PO SCH (08:02)
[2018-01-09] MEDS: GABAPENTIN 300 MG CAP PO SCH ×3 (08:02→20:49)
[2018-01-09] MEDS: METOPROLOL TARTRATE 50 MG TAB PO SCH ×2 (08:02→20:49)
[2018-01-09 08:06] LABS: HCT 28.2 % (34.0-46.0); HGB 9.3 gm/dL (11.4-16.0); MCH 32.8 pg (25.0-35.0); MCHC 33.2 g/dL (31.0-37.0); MCV 98.9 fL (80.0-100.0); Macrocytosis Slight; Mean Platelet Volume 8.1; Platelet Count 131 k/uL (150-450); RBC 2.85 m/uL (3.80-5.40); RDW 14.7 % (11.5-15.5)
[2018-01-09] MEDS: IPRATROPIUM-ALBUTEROL 3 ML NEB INHALATION PRN ×4 (08:17→19:50)
[2018-01-09] MEDS: SYMBICORT 160-4.5 MCG INHALER INHALATION SCH ×2 (08:17→19:50)
[2018-01-09] MEDS: busPIRone HCl 5 MG TAB PO SCH ×2 (08:18→20:48)
[2018-01-09 08:33] LABS: Anion Gap 9 mmol/L; Blood Urea Nitrogen 24 mg/dL (7-17); Calcium 8.4 mg/dL (8.4-10.2); Carbon Dioxide 29 mmol/L (22-30); Chloride 102 mmol/L (98-107); Glucose 338 mg/dL (74-99); Magnesium 2.2 mg/dL (1.6-2.3); Potassium 5.4 mmol/L (3.5-5.1); Sodium 140 mmol/L (137-145)
[2018-01-09 09:19] LABS: WBC 1.9 k/uL (3.8-10.6)
[2018-01-09 11:47] LABS: Blast Cells # (M) 0.06 k/uL (0); Lymphocytes # (M) 0.57 k/uL (1.0-4.8); Monocytes # (M) 0.38 k/uL (0-1.0); Myelocytes # (M) 0.02 k/uL (0); Myelocytes % 1 %; Neutrophils # (M) 0.91 k/uL (1.3-7.7); Neutrophils % (M) 48 %; Nucleated Red Blood Cells 1 /100 WBC (0-0); Total Cells Counted 200
[2018-01-09 11:48] LABS: Poikilocytosis (M) Present
--- NOTE | 2018-01-09 11:53 | XR ---
EXAMINATION TYPE: XR chest 1V portable DATE OF EXAM: 01/09/2018 COMPARISON: Prior chest 01/08/2018 HISTORY: Bilateral pneumonia, difficulty breathing TECHNIQUE: Single frontal view of the chest is obtained. FINDINGS: Bilateral airspace disease is noted. There is no evident pneumothorax or pleural effusion. Heart remains enlarged. Prominence of the светлана is noted. IMPRESSION: Findings are similar to prior exam. Correlate for pneumonia, pulmonary edema, or hemorrh age, possible pulmonary artery hypertension. Mediastinal adenopathy.
[2018-01-09 12:19] LABS: Glucose,Whole Blood 295 mg/dL (75-99)
[2018-01-09] MEDS: CYANOCOBALAMIN 500 MCG TAB PO SCH (12:45)
--- NOTE | 2018-01-09 15:59 | P.PN ---
Subjective Progress Note Date: 01/09/18 Principal diagnosis: Extensive multilobar nodular infiltrates, consistent with pneumonia, acute hypoxic respiratory failure Mrs. Brunner is a 53-year-old white female patient of Dr. Nikki Soto who presented to the hospital on 01/04/2018 at 1936 with complaints of a history fever, chills, increasing shortness of breath. She denied any cough, she denied any chest congestion, or wheezing. Has a known history of bronchial asthma, and her last hospitalization was back in August for acute asthma exacerbation secondary to acute influenza B tracheobronchitis and left lower leg cellulitis. Patient had recovered, and was doing well at home. She sees Dr. Dr. Hollingsworth in the pulmonary office for her history of bronchial asthma, and her most recent PFT showed an FEV1 of 68% of predicted, with a 9% improvement post bronchodilator treatment. This was an improvement from her PFT from 2017, which showed severe obstruction with FEV1 of 1.12 L of 43% of predicted, with improvement to 56% of predicted postbronchodilator treatment. Patient is on Singulair, Symbicort, Ventolin inhaler, in addition to Singulair, Claritin, and Flonase. Patient had never been intubated for asthma exacerbation, she is a lifetime nonsmoker, she is not sure what her triggers are. Prior to this episode, she used her rescue inhaler about once a week. Patient did have shaking chills at home, she was short of breath even walking to the bathroom. In the emergency department her initial temperature was 98.4, however through her stay in the hospital, she had been intermittently febrile with fevers as high as 103.4F. Normally does not wear oxygen at baseline, however today she became hypoxemic, with a pulse ox in the low 80s on room air, pulse ox on 4 L per nasal cannula was 86%. Patient also had some left lower quadrant discomfort , abdominal/pelvis CT was completed and showed abnormal prominence of central endometrium could represent trapped fluid in the endometrial canal, abnormal thickening could not be excluded, and nonemergent pelvic ultrasound was recommended. Multifocal groundglass opacities were noted in the lung bases. Chest x-ray showed cardiomegaly and chronic parenchymal changes without suspicious focal airspace opacity. This was compared the CT chest from 2017, which showed mild diffuse bronchial wall thickening persistent with a diagnosis of bronchitis and chronic asthma, and subtle multifocal patchy groundglass infiltrates and possible tree-in-bud densities in the right lower lobe, and distal small airways impaction with mucoid debris. At the time of the CT chest patient was completely asymptomatic. EKG showed normal sinus rhythm. Patient was started on empiric antibiotics in the form of Rocephin and azithromycin, and was admitted for further management. We were consulted today in regards to acute hypoxemic respiratory failure, stat blood gas was obtained on 10 L high flow, and it showed pO2 of 62, pCO2 41, pH of 7.41, consistent with hypoxemic respiratory failure. This morning's chest x-ray showed worsening interstitial changes, and follow-up chest x-ray this afternoon showed cardiomegaly with diffuse interstitial changes, mild pulmonary vascular congestion, findings could be correlated to atypical pneumonia or interstitial pneumonitis. ProBNP was added to this morning's labs and was within normal limits at 576. Labs show initial white count of 3.3, which subsequently decreased to 2.2 through patient's stay, hemoglobin of 11.4, down to 10.4, no evidence of coagulopathy, electrolytes within normal limits, renal profile is normal, initial plasma lactic acid was 2.2, patient was given a liter bolus in the emergency room, and received a maintenance IV fluid rate at 100 ML per hour. He was given a dose of IV Levaquin in the ER, and was subsequently switched to Rocephin and Zithromax on which she remains. Her T-max in the last 24 hours was 101.1F, patient had another episode of low-grade fever this morning with a temp of 100F. He was treated with IV Tylenol, urine and blood cultures remain negative to date. Her other medical history includes diabetes mellitus type 2, morbid obesity, GERD/reflux, hypertension, hyperlipidemia, hypothyroidism, chronic back pain, neuropathy, iron deficiency anemia, insomnia , anxiety, depression. Of note patient states she was recently seen by Dr. Lucero in consultation in regards to low white counts and anemia, and she is supposed to follow-up with him in the fall in regards to the results of testing. On today's evaluation patient is calm and comfortable, she is in no acute distress, in the recliner, on 10 L per high flow nasal cannula, his any cough, denies any chest congestion, denies any phlegm production denies any hemoptysis, denies any chest wall tenderness. We're seeing the patient in regards to acute hypoxemic respiratory failure, and the cause of which is under investigation. On 01/07/2018 she was seen again in follow-up on medical surgical floor. She remains on high flow nasal cannula, currently at 10 L, and the pulse ox remains marginal from 88-93%. Patient still remains very dyspneic, and limited in terms of activity tolerance. She did have intermittent low-grade fevers today, with T-max of 100.7F. CT chest results and films were reviewed by Dr. Wylie today, and showed extensive bilateral pulmonary airspace infiltrates assisted with acute pneumonia, and increased paratracheal adenopathy. Lung sounds are diminished, but no rhonchi, rales or wheezes noted. Patient denies any phlegm production, denies any chest congestion, there is no wheezing. Patient's IV antibiotics have been switched to Levaquin, and the patient received 1 dose. Urine and blood cultures remain negative, Legionella urine antigen and mycoplasma IgM ordered and are pending at this time. Patient did receive a few doses of IV diuretics, with no improvement in oxygenation. Hence we will stop those. There is a concern about a fungal infection versus ALLERGIC bronchopulmonary aspergillosis. Antibiotic coverage will be stepped up and switched over to meropenem and vancomycin. We'll request consultation from hematology and infectious disease service. On 01/08/2018 patient seen in follow-up. Breathing easier today, although patient still becomes quite dyspneic with any exertion, even walking to the commode. Still requiring 10 L per high flow nasal cannula, and her pulse ox remains marginal at 90-92%. On sounds are diminished, with some crackles at the left lower base. No rhonchi, no wheezing, no cough, no phlegm production. No hemoptysis, no chest wall tenderness. Her last fever was yesterday at 1457, with a temp of 100.7F. Today we switch the antibiotic coverage to meropenem and vancomycin, she was seen by ID service, mycoplasma IgM and Legionella antigen were not detected. Cultures remain negative. Repeat chest x-ray showed cardiomegaly with multifocal areas of edema and/or infiltrates affecting bilateral upper and lower lungs, no significant change from 2 days prior. On 01/09/2018 patient seen in follow-up on medical surgical floor. Still quite dyspneic with any exertion, she remains on 10 L per high flow nasal cannula, and her oxygen saturation remains marginal at 90%, no febrile episodes for almost 48 hours. Yesterday's chest x-ray did not show much improvement in terms of multifocal areas of infiltrates in bilateral upper and lower lungs. Cultures remain negative thus far, she is still not able to bring up any sputum , sounds are diminished bilaterally, with bibasilar crackles, no wheezes or rhonchi appreciated. She remains on meropenem. ID service is now following, hematology is planning a bone marrow biopsy. Today's chest x-ray is similar to the prior exam, and looking slightly worse in terms of diffuse pulmonary infiltrates. We will schedule the patient for bronchoscopy with BAL by Dr. Wylie tomorrow, and this will be done in the OR, patient will be intubated for the procedure. This was discussed with the patient and her niece, she was anxious regarding the procedure, she had a lot of questions, and concerns about potential poor outcome including procedure. Questions were answered, and there is a risk of mortality, and there is a chance of patient requiring a mechanical ventilation after the procedure, however proceeding with bronchoscopy would allow to make a diagnosis, obtain sputum samples, and direct antibiotic therapy. The patient and the niece did agree to go ahead with the procedure, patient will be nothing by mouth after midnight and bone marrow biopsy will be done by Dr. Allen following the bronchoscopy. Objective - Vital Signs Vital signs: Vital Signs Temp 98.9 F 01/09/18 06:00 Pulse 80 01/09/18 11:46 Resp 20 01/09/18 06:00 BP 124/81 01/09/18 06:00 Pulse Ox 90 L 01/09/18 06:00 Intake & Output 01/08/18 01/09/18 01/09/18 18:59 06:59 18:59 Intake Total 500 Balance 500 Intake: Oral 500 Other: # Voids 2 1 # Bowel Movements 1 - Exam - Constitutional Alert, pleasant, 53-year-old obese white female, sitting in the recliner, currently on 10 L per high flow cannula General appearance: morbidly obese, no acute distress - EENT Eyes: PERRLA, dentition normal ENT: NA/AT - Neck Neck: no lymphadenopathy, normal ROM Carotids: bilateral: upstroke normal Thyroid: bilateral: normal size - Respiratory Respiratory: bilateral: diminished, limited rales at the left lower base, no rhonchi or wheezes noted - Cardiovascular Rhythm: regular Heart sounds: normal: S1, S2 leg Peripheral Edema: bilateral: Trace ankle Peripheral Edema: bilateral: Trace dorsalis pedis Peripheral Pulses: bilateral: Normal radial pulse Peripheral Pulses: bilateral: Normal - Gastrointestinal General gastrointestinal: no organomegaly, soft, no tenderness - Integumentary Integumentary: normal turgor - Neurologic Neurologic: CNII-XII intact - Musculoskeletal Musculoskeletal: strength equal bilaterally - Psychiatric Psychiatric: A&O x's 3, appropriate affect, intact judgment & insight - Labs CBC & Chem 7: 01/09/18 07:32 01/09/18 07:32 Labs: Abnormal Lab Results - Last 24 Hours (Table) 01/08/18 01/08/18 01/08/18 Range/Units 17:17 21:09 21:10 WBC (3.8-10.6) k/uL RBC (3.80-5.40) m/uL Hgb (11.4-16.0) gm/dL Hct (34.0-46.0) % Plt Count (150-450) k/uL Neutrophils # (Manual) (1.3-7.7) k/uL Lymphocytes # (Manual) (1.0-4.8) k/uL Myelocytes # (Manual) (0) k/uL Blast Cells # (Man) (0) k/uL Nucleated RBCs (0-0) /100 WBC Potassium (3.5-5.1) mmol/L BUN (7-17) mg/dL Glucose (74-99) mg/dL POC Glucose (mg/dL) 336 H 401 H 422 H (75-99) mg/dL 01/09/18 01/09/18 01/09/18 Range/Units 02:39 07:06 07:32 WBC 1.9 L* (3.8-10.6) k/uL RBC 2.85 L (3.80-5.40) m/uL Hgb 9.3 L (11.4-16.0) gm/dL Hct 28.2 L (34.0-46.0) % Plt Count 131 L (150-450) k/uL Neutrophils # (Manual) 0.91 L (1.3-7.7) k/uL Lymphocytes # (Manual) 0.57 L (1.0-4.8) k/uL Myelocytes # (Manual) 0.02 H (0) k/uL Blast Cells # (Man) 0.06 H (0) k/uL Nucleated RBCs 1 H (0-0) /100 WBC Potassium (3.5-5.1) mmol/L BUN (7-17) mg/dL Glucose (74-99) mg/dL POC Glucose (mg/dL) 375 H 345 H (75-99) mg/dL 01/09/18 01/09/18 Range/Units 07:32 12:08 WBC (3.8-10.6) k/uL RBC (3.80-5.40) m/uL Hgb (11.4-16.0) gm/dL Hct (34.0-46.0) % Plt Count (150-450) k/uL Neutrophils # (Manual) (1.3-7.7) k/uL Lymphocytes # (Manual) (1.0-4.8) k/uL Myelocytes # (Manual) (0) k/uL Blast Cells # (Man) (0) k/uL Nucleated RBCs (0-0) /100 WBC Potassium 5.4 H (3.5-5.1) mmol/L BUN 24 H (7-17) mg/dL Glucose 338 H (74-99) mg/dL POC Glucose (mg/dL) 295 H (75-99) mg/dL Microbiology - Last 24 Hours (Table) 01/04/18 20:00 Blood Culture - Preliminary Blood No Growth after 96 hours 01/06/18 18:42 Blood Culture - Preliminary Blood No Growth after 48 hours 01/06/18 18:20 Blood Culture - Preliminary Blood No Growth after 48 hours Assessment and Plan Plan: Assessment: #1. Acute hypoxemic respiratory failure related to acute extensive bilateral infiltrates, consistent with acute pneumonia, community acquired, and there is a concern for fungal infection in this immunocompromised host #2. Intermittent fever, chills, shortness of breath related to the above #3. Pancytopenia, patient is awaiting to undergo bone marrow biopsy #4. Mild lactic acidosis present on admission, with lactic acid level of 2.2, and the patient was fluid resuscitated with 1 L of crystalloids, and received maintenance IV fluids at a rate of 100 ML per hour, subsequent lactic acid was down to 0.8 #5. Abdominal pain, CT of abdomen and pelvis showed abnormal prominence of the central endometrium, or could possibly represent trapped fluid in the endometrial canal and abnormal endometrial thickening, be followed up with nonemergent pelvic ultrasound #6. Chronic bronchial asthma, and her latest PFT showed FEV1 of 68% of predicted, with post bronchodilator response up to 73% of predicted, and patient was diagnosed with adult onset genetic asthma. This seems to be stable right now #7. Hypertension, hyperlipidemia #8. Diabetes mellitus type 2 #9. Morbid obesity with a BMI of 54.8 kg/m #10. Chronic back pain #11. GERD/reflux on omeprazole #12. Hypothyroidism #13. Anxiety, depression #14. Lifetime nonsmoker #15. Exertional dyspnea, limited exercise capacity, patient had a 6 minute walk test in the pulmonary office, and became severely short of breath after 3 laps, and desatted to 88%. Continue nebulized bronchodilators, continue Symbicort. Plan: Continue with antibiotics per ID service recommendation, cultures remain negative thus far, patient he needs to require 10 L of oxygen and her saturations remained marginal. Remains very dyspneic with any exertion. She has been afebrile for almost 48 hours, but today's chest x-ray looks worse, so we will schedule the patient for bronchoscopy in the OR with BAL by Dr. Benton on 01/09/2018. The risks and benefits of the procedure were discussed in detail with the patient and her niece, and the patient agreed to proceed, nothing by mouth after midnight. I performed a history & physical examination of the patient and discussed their management with my nurse practitioner, Flori Colunga. I reviewed the nurse practitioner's note and agree with the documented findings and plan of care. Lung sounds are positive for initial breath sounds with limited crackles at the left lower lobe. The findings and the impression was discussed with the patient. I attest to the documentation by the nurse practitioner. Time with Patient: Less than 30
[2018-01-09 17:53] LABS: Glucose,Whole Blood 352 mg/dL (75-99)
[2018-01-09] MEDS ORDERED: LIDOCAINE 1% 20 ML VIAL (10MG/ML) FOR IV START INTRADERMA PRN (17:53)
[2018-01-09] MEDS: LACTATED RINGERS 1,000 ML IV SCH (18:15)
[2018-01-09] MEDS: MONTELUKAST 10 MG TAB PO SCH (20:49)
[2018-01-09] MEDS: INSULIN DETEMIR 100 UNIT/ML 10 ML VIAL SQ SCH (20:51)
[2018-01-09] MEDS: ZOLPIDEM 10 MG TAB PO SCH (20:56)
[2018-01-09 21:09] LABS: Glucose,Whole Blood 379 mg/dL (75-99)
[2018-01-10] MEDS ORDERED: methylPREDNISolone SOD SUCCI 125 MG/2 ML VIAL ONE
[2018-01-10] MEDS ORDERED: HEPARIN SODIUM,PORCINE 5,000 UNIT/ML 1 ML VIAL ONE
[2018-01-10] MEDS: methylPREDNISolone SOD SUCCI 40 MG/ML 1 ML VIAL IV SCH ×2 (05:49→07:34)
[2018-01-10] MEDS: HEPARIN SODIUM,PORCINE 5,000 UNIT/ML 1 ML VIAL SQ SCH ×4 (05:49→23:00)
[2018-01-10] MEDS: MEROPENEM 2 GM in SODIUM CHLORIDE 0.9% 100 ML IVPB SCH ×4 (05:49→23:00)
[2018-01-10] MEDS: SODIUM CHLORIDE 0.9% 1,000 ML IV SCH (06:25)
[2018-01-10] MEDS: LEVOTHYROXINE 125 MCG TAB PO SCH (06:26)
[2018-01-10 07:25] LABS: Glucose,Whole Blood 310 mg/dL (75-99)
[2018-01-10] MEDS: INSULIN ASPART 100 UNIT/ML 1 ML 10 ML VIAL SQ SCH ×4 (07:33→20:52)
[2018-01-10] MEDS: PANTOPRAZOLE 40 MG TABLET PO SCH (07:34)
[2018-01-10] MEDS: ASPIRIN 81 MG PO SCH (07:34)
[2018-01-10] MEDS: CALCIUM CARB-VIT D 500MG-200UN 1 EACH TAB PO SCH (07:35)
[2018-01-10] MEDS: ATORVASTATIN 20 MG TAB PO SCH (07:35)
[2018-01-10] MEDS: METOPROLOL TARTRATE 50 MG TAB PO SCH ×2 (07:35→20:54)
[2018-01-10] MEDS: LORATADINE 10 MG TAB PO SCH (07:35)
[2018-01-10] MEDS: busPIRone HCl 5 MG TAB PO SCH ×2 (07:35→20:54)
[2018-01-10] MEDS: FERROUS SULFATE 325 MG TAB PO SCH (07:36)
[2018-01-10] MEDS: GABAPENTIN 300 MG CAP PO SCH ×3 (07:36→21:02)
[2018-01-10] MEDS: FLUTICASONE 50MCG/SPRAY NASAL 16GM EA NOSTRIL SCH (07:36)
[2018-01-10] MEDS: ESCITALOPRAM 10 MG TAB PO SCH (07:36)
[2018-01-10] MEDS: POTASSIUM CHLORIDE ER 20 MEQ TAB.ER PO SCH ×2 (07:36→21:02)
[2018-01-10] MEDS: IPRATROPIUM-ALBUTEROL 3 ML NEB INHALATION PRN ×3 (08:05→19:46)
[2018-01-10] MEDS: SYMBICORT 160-4.5 MCG INHALER INHALATION SCH (08:06)
--- NOTE | 2018-01-10 08:06 | P.PN ---
Subjective Progress Note Date: 01/09/18 The patient overall feels stronger. She denies any new complaints. No unusual bleeding or bruising noted. No history of fevers/chills/nausea/vomiting Objective - Vital Signs Vital signs: Vital Signs Temp 97.6 F 01/10/18 07:00 Pulse 62 01/10/18 07:00 Resp 18 01/10/18 07:00 BP 132/75 01/10/18 07:00 Pulse Ox 96 01/10/18 07:00 Intake & Output 01/09/18 01/10/18 01/10/18 18:59 06:59 18:59 Intake Total 200 840 Balance 200 840 Intake: Oral 200 840 Other: # Voids 2 2 # Bowel Movements 1 - Constitutional General appearance: Present: no acute distress - EENT Eyes: Present: EOMI, PERRLA ENT: Present: hearing grossly normal, normal oropharynx - Respiratory Respiratory: bilateral: diminished - Cardiovascular Rhythm: regular Heart sounds: normal: S1, S2 - Gastrointestinal General gastrointestinal: Present: normal bowel sounds, soft - Integumentary Integumentary: Present: normal - Neurologic Neurologic: Present: CNII-XII intact - Musculoskeletal Musculoskeletal: Present: generalized weakness, strength equal bilaterally - Psychiatric Psychiatric: Present: A&O x's 3, appropriate affect, intact judgment & insight - Labs CBC & Chem 7: 01/09/18 07:32 01/09/18 07:32 Labs: Abnormal Lab Results - Last 24 Hours (Table) 01/09/18 01/09/18 01/09/18 Range/Units 07:32 07:32 12:08 WBC 1.9 L* (3.8-10.6) k/uL RBC 2.85 L (3.80-5.40) m/uL Hgb 9.3 L (11.4-16.0) gm/dL Hct 28.2 L (34.0-46.0) % Plt Count 131 L (150-450) k/uL Neutrophils # (Manual) 0.91 L (1.3-7.7) k/uL Lymphocytes # (Manual) 0.57 L (1.0-4.8) k/uL Myelocytes # (Manual) 0.02 H (0) k/uL Blast Cells # (Man) 0.06 H (0) k/uL Nucleated RBCs 1 H (0-0) /100 WBC Potassium 5.4 H (3.5-5.1) mmol/L BUN 24 H (7-17) mg/dL Glucose 338 H (74-99) mg/dL POC Glucose (mg/dL) 295 H (75-99) mg/dL 01/09/18 01/09/18 01/10/18 Range/Units 17:00 20:39 07:15 WBC (3.8-10.6) k/uL RBC (3.80-5.40) m/uL Hgb (11.4-16.0) gm/dL Hct (34.0-46.0) % Plt Count (150-450) k/uL Neutrophils # (Manual) (1.3-7.7) k/uL Lymphocytes # (Manual) (1.0-4.8) k/uL Myelocytes # (Manual) (0) k/uL Blast Cells # (Man) (0) k/uL Nucleated RBCs (0-0) /100 WBC Potassium (3.5-5.1) mmol/L BUN (7-17) mg/dL Glucose (74-99) mg/dL POC Glucose (mg/dL) 352 H 379 H 310 H (75-99) mg/dL Microbiology - Last 24 Hours (Table) 01/04/18 20:00 Blood Culture - Preliminary Blood No Growth after 120 hours 01/06/18 18:42 Blood Culture - Preliminary Blood No Growth after 72 hours 01/06/18 18:20 Blood Culture - Preliminary Blood No Growth after 72 hours Assessment and Plan (1) Pancytopenia Narrative/Plan: The the patient has known B-12 deficiency. She has been started on B12 supplementation, but counts have shown progressive decline during this admission. While this could be transient, due to the stress of her acute infection, in the setting of marrow compromise by B12 deficiency, her WBC differential has been significantly abnormal showing persistent blasts. This is suspicious for a primary bone marrow process. Therefore a bone marrow aspiration and biopsy was recommended. The procedure was explained in detail to her. This will be done with sedation on 01/10/18. She understood the rationale for the same and was agreeable. At this time hemoglobin and platelets remain in a safe range. Continue to monitor with supplementation as needed. W BC has shown a decline, but fortunately the patient's sepsis symptoms are responding to antibiotics. Therefore growth factors are not recommended, even the presence of blasts an unknown nature of any underlying marrow condition Current Visit: Yes Status: Acute Priority: High Code(s): D61.818 - OTHER PANCYTOPENIA SNOMED Code(s): 313289586 (2) Pneumonia Narrative/Plan: The patient is clinically improved, significantly, with ongoing treatment. Defer to the admitting service for the same. Current Visit: Yes Status: Acute Code(s): J18.9 - PNEUMONIA, UNSPECIFIED ORGANISM SNOMED Code(s): 635779070
[2018-01-10 08:30] LABS: HCT 31.3 % (34.0-46.0); HGB 9.9 gm/dL (11.4-16.0); MCH 31.5 pg (25.0-35.0); MCHC 31.7 g/dL (31.0-37.0); MCV 99.1 fL (80.0-100.0); Macrocytosis Slight; Mean Platelet Volume 7.6; Platelet Count 180 k/uL (150-450); RBC 3.16 m/uL (3.80-5.40); RDW 14.9 % (11.5-15.5)
[2018-01-10 09:01] LABS: Anion Gap 7 mmol/L; Blood Urea Nitrogen 27 mg/dL (7-17); Calcium 8.7 mg/dL (8.4-10.2); Carbon Dioxide 30 mmol/L (22-30); Chloride 102 mmol/L (98-107); Glucose 313 mg/dL (74-99); Potassium 4.9 mmol/L (3.5-5.1); Sodium 139 mmol/L (137-145)
[2018-01-10] MEDS ORDERED: IV FLUID CONTINUATION 350 ML IV ONE (10:58)
[2018-01-10] MEDS: ONDANSETRON 4 MG/2 ML VIAL IVP PRN (11:05)
[2018-01-10] MEDS ORDERED: fentaNYL (PF) 50 MCG/ML 2 ML AMP ONE (11:25)
[2018-01-10] MEDS ORDERED: ROCURONIUM BROMIDE 10 MG/ML 10 ML VIAL IV ONE (11:25)
[2018-01-10] MEDS ORDERED: ePHEDrine SULFATE/0.9% NACL/PF 50 MG/5 ML SYRINGE IV ONE (11:25)
[2018-01-10] MEDS ORDERED: MIDAZOLAM 2 MG/2 ML VIAL ONE (11:25)
[2018-01-10] MEDS ORDERED: LIDOCAINE 1% INJ 10MG/ML (20 ML MDV) ONE (11:25)
[2018-01-10] MEDS ORDERED: PROPOFOL 10 MG/ML 20 ML VIAL IV ONE (11:25)
[2018-01-10] MEDS ORDERED: SUCCINYLCHOLINE CHLORIDE 100 MG/5 ML SYR IV ONE (11:25)
[2018-01-10] MEDS ORDERED: LACTATED RINGERS 1,000 ML IV ONE (12:19)
--- NOTE | 2018-01-10 12:35 | PCN ---
PROCEDURE NOTE BRONCHOSCOPY AND BRONCHOALVEOLAR LAVAGE: PREOPERATIVE DIAGNOSIS: Diffuse bilateral pneumonia. POSTOPERATIVE DIAGNOSIS: Diffuse bilateral pneumonia. ANESTHESIA USED: Patient was given a general anesthesia with endotracheal intubation. PROCEDURE: The patient was brought into the operating room #3, she was intubated by IRB COMPLIANCE COORDINATOR using the GlideScope, and she was given general anesthetic. Then we monitored her O2 saturation continuously, blood pressure was intermittently monitored, and cardiac rhythm was continuously monitored. The bronchoscope was advanced through an adaptor on the endotracheal tube, and it was advanced down to the area of the distal trachea. Thorough examination was done of the stefanie, right upper lobe, right middle lobe, right lower lobe, left upper lobe, lingula, and left lower lobe. There was hardly any secretions noted in the airways, then the bronchoscope was wedged into the left upper lobe and a bronchoalveolar lavage was done. It was also done in the lingula including the superior segment and inferior segment of the lingula. Then the bronchoscope was moved down to the right middle lobe, and lavage was also done of the right middle lobe. Random bronchoalveolar lavage was done from the different lobes including the left upper lobe, lingula and right middle lobe. Procedure was well tolerated, O2 saturation remained in the 90s throughout the whole procedure. Then the bronchoscope was pulled out of the airways, and the patient was kept on mechanical ventilation. Plan to extubate the patient later on after her next bone marrow biopsy which is scheduled to be done by Dr. Allen in the operating room also. The fluid we obtained from the lavage was sent for different diagnostic studies including PCP stain and PCR, routine cultures, AFB cultures, fungal cultures, galactomannan antigen, and also sent for Gram stain, culture and sensitivity as well as cell count and for cytology. MMODL / IJN: [id number] /
--- NOTE | 2018-01-10 12:39 | P.PN ---
Subjective Progress Note Date: 01/10/18 Principal diagnosis: Extensive multilobar nodular infiltrates, consistent with pneumonia, acute hypoxic respiratory failure Mrs. Brunner is a 53-year-old white female patient of Dr. Nikki Soto who presented to the hospital on 01/04/2018 at 1936 with complaints of a history fever, chills, increasing shortness of breath. She denied any cough, she denied any chest congestion, or wheezing. Has a known history of bronchial asthma, and her last hospitalization was back in August for acute asthma exacerbation secondary to acute influenza B tracheobronchitis and left lower leg cellulitis. Patient had recovered, and was doing well at home. She sees Dr. Dr. Hollingsworth in the pulmonary office for her history of bronchial asthma, and her most recent PFT showed an FEV1 of 68% of predicted, with a 9% improvement post bronchodilator treatment. This was an improvement from her PFT from 2017, which showed severe obstruction with FEV1 of 1.12 L of 43% of predicted, with improvement to 56% of predicted postbronchodilator treatment. Patient is on Singulair, Symbicort, Ventolin inhaler, in addition to Singulair, Claritin, and Flonase. Patient had never been intubated for asthma exacerbation, she is a lifetime nonsmoker, she is not sure what her triggers are. Prior to this episode, she used her rescue inhaler about once a week. Patient did have shaking chills at home, she was short of breath even walking to the bathroom. In the emergency department her initial temperature was 98.4, however through her stay in the hospital, she had been intermittently febrile with fevers as high as 103.4F. Normally does not wear oxygen at baseline, however today she became hypoxemic, with a pulse ox in the low 80s on room air, pulse ox on 4 L per nasal cannula was 86%. Patient also had some left lower quadrant discomfort , abdominal/pelvis CT was completed and showed abnormal prominence of central endometrium could represent trapped fluid in the endometrial canal, abnormal thickening could not be excluded, and nonemergent pelvic ultrasound was recommended. Multifocal groundglass opacities were noted in the lung bases. Chest x-ray showed cardiomegaly and chronic parenchymal changes without suspicious focal airspace opacity. This was compared the CT chest from 2017, which showed mild diffuse bronchial wall thickening persistent with a diagnosis of bronchitis and chronic asthma, and subtle multifocal patchy groundglass infiltrates and possible tree-in-bud densities in the right lower lobe, and distal small airways impaction with mucoid debris. At the time of the CT chest patient was completely asymptomatic. EKG showed normal sinus rhythm. Patient was started on empiric antibiotics in the form of Rocephin and azithromycin, and was admitted for further management. We were consulted today in regards to acute hypoxemic respiratory failure, stat blood gas was obtained on 10 L high flow, and it showed pO2 of 62, pCO2 41, pH of 7.41, consistent with hypoxemic respiratory failure. This morning's chest x-ray showed worsening interstitial changes, and follow-up chest x-ray this afternoon showed cardiomegaly with diffuse interstitial changes, mild pulmonary vascular congestion, findings could be correlated to atypical pneumonia or interstitial pneumonitis. ProBNP was added to this morning's labs and was within normal limits at 576. Labs show initial white count of 3.3, which subsequently decreased to 2.2 through patient's stay, hemoglobin of 11.4, down to 10.4, no evidence of coagulopathy, electrolytes within normal limits, renal profile is normal, initial plasma lactic acid was 2.2, patient was given a liter bolus in the emergency room, and received a maintenance IV fluid rate at 100 ML per hour. He was given a dose of IV Levaquin in the ER, and was subsequently switched to Rocephin and Zithromax on which she remains. Her T-max in the last 24 hours was 101.1F, patient had another episode of low-grade fever this morning with a temp of 100F. He was treated with IV Tylenol, urine and blood cultures remain negative to date. Her other medical history includes diabetes mellitus type 2, morbid obesity, GERD/reflux, hypertension, hyperlipidemia, hypothyroidism, chronic back pain, neuropathy, iron deficiency anemia, insomnia , anxiety, depression. Of note patient states she was recently seen by Dr. Lucero in consultation in regards to low white counts and anemia, and she is supposed to follow-up with him in the fall in regards to the results of testing. On today's evaluation patient is calm and comfortable, she is in no acute distress, in the recliner, on 10 L per high flow nasal cannula, his any cough, denies any chest congestion, denies any phlegm production denies any hemoptysis, denies any chest wall tenderness. We're seeing the patient in regards to acute hypoxemic respiratory failure, and the cause of which is under investigation. On 01/07/2018 she was seen again in follow-up on medical surgical floor. She remains on high flow nasal cannula, currently at 10 L, and the pulse ox remains marginal from 88-93%. Patient still remains very dyspneic, and limited in terms of activity tolerance. She did have intermittent low-grade fevers today, with T-max of 100.7F. CT chest results and films were reviewed by Dr. Wylie today, and showed extensive bilateral pulmonary airspace infiltrates assisted with acute pneumonia, and increased paratracheal adenopathy. Lung sounds are diminished, but no rhonchi, rales or wheezes noted. Patient denies any phlegm production, denies any chest congestion, there is no wheezing. Patient's IV antibiotics have been switched to Levaquin, and the patient received 1 dose. Urine and blood cultures remain negative, Legionella urine antigen and mycoplasma IgM ordered and are pending at this time. Patient did receive a few doses of IV diuretics, with no improvement in oxygenation. Hence we will stop those. There is a concern about a fungal infection versus ALLERGIC bronchopulmonary aspergillosis. Antibiotic coverage will be stepped up and switched over to meropenem and vancomycin. We'll request consultation from hematology and infectious disease service. On 01/08/2018 patient seen in follow-up. Breathing easier today, although patient still becomes quite dyspneic with any exertion, even walking to the commode. Still requiring 10 L per high flow nasal cannula, and her pulse ox remains marginal at 90-92%. On sounds are diminished, with some crackles at the left lower base. No rhonchi, no wheezing, no cough, no phlegm production. No hemoptysis, no chest wall tenderness. Her last fever was yesterday at 1457, with a temp of 100.7F. Today we switch the antibiotic coverage to meropenem and vancomycin, she was seen by ID service, mycoplasma IgM and Legionella antigen were not detected. Cultures remain negative. Repeat chest x-ray showed cardiomegaly with multifocal areas of edema and/or infiltrates affecting bilateral upper and lower lungs, no significant change from 2 days prior. On 01/09/2018 patient seen in follow-up on medical surgical floor. Still quite dyspneic with any exertion, she remains on 10 L per high flow nasal cannula, and her oxygen saturation remains marginal at 90%, no febrile episodes for almost 48 hours. Yesterday's chest x-ray did not show much improvement in terms of multifocal areas of infiltrates in bilateral upper and lower lungs. Cultures remain negative thus far, she is still not able to bring up any sputum , sounds are diminished bilaterally, with bibasilar crackles, no wheezes or rhonchi appreciated. She remains on meropenem. ID service is now following, hematology is planning a bone marrow biopsy. Today's chest x-ray is similar to the prior exam, and looking slightly worse in terms of diffuse pulmonary infiltrates. We will schedule the patient for bronchoscopy with BAL by Dr. Wylie tomorrow, and this will be done in the OR, patient will be intubated for the procedure. This was discussed with the patient and her niece, she was anxious regarding the procedure, she had a lot of questions, and concerns about potential poor outcome including procedure. Questions were answered, and there is a risk of mortality, and there is a chance of patient requiring a mechanical ventilation after the procedure, however proceeding with bronchoscopy would allow to make a diagnosis, obtain sputum samples, and direct antibiotic therapy. The patient and the niece did agree to go ahead with the procedure, patient will be nothing by mouth after midnight and bone marrow biopsy will be done by Dr. Allen following the bronchoscopy. On 01/10/2018 patient seen in follow-up on medical surgical floor, prior to her scheduled bronchoscopy. Remains on 10 L per high flow nasal cannula, she is in no acute distress, but becomes very dyspneic with any exertion. Was able to bring up some sputum today, afebrile. Cultures remain negative. Remains on meropenem. He service is following, patient is awaiting her bronchoscopy with BAL by Dr. Wylie today, which will be followed by bone marrow biopsy by Dr. Allen. Patient is to be intubated for the procedure, and there is a likelihood she would require mechanical ventilation after the procedure, and a bed will be obtained in the ICU. Objective - Vital Signs Vital signs: Vital Signs Temp 98.4 F 01/10/18 10:35 Pulse 56 L 01/10/18 10:35 Resp 16 01/10/18 10:35 BP 136/78 01/10/18 10:35 Pulse Ox 98 01/10/18 10:35 Intake & Output 01/09/18 01/10/18 01/10/18 18:59 06:59 18:59 Intake Total 200 840 450 Balance 200 840 450 Intake: IV 450 Oral 200 840 Other: # Voids 2 2 # Bowel Movements 1 - Exam - Constitutional Alert, pleasant, 53-year-old obese white female, sitting in the recliner, currently on 10 L per high flow cannula General appearance: morbidly obese, no acute distress - EENT Eyes: PERRLA, dentition normal ENT: NA/AT - Neck Neck: no lymphadenopathy, normal ROM Carotids: bilateral: upstroke normal Thyroid: bilateral: normal size - Respiratory Respiratory: bilateral: diminished, limited rales at the left lower base, no rhonchi or wheezes noted - Cardiovascular Rhythm: regular Heart sounds: normal: S1, S2 leg Peripheral Edema: bilateral: Trace ankle Peripheral Edema: bilateral: Trace dorsalis pedis Peripheral Pulses: bilateral: Normal radial pulse Peripheral Pulses: bilateral: Normal - Gastrointestinal General gastrointestinal: no organomegaly, soft, no tenderness - Integumentary Integumentary: normal turgor - Neurologic Neurologic: CNII-XII intact - Musculoskeletal Musculoskeletal: strength equal bilaterally - Psychiatric Psychiatric: A&O x's 3, appropriate affect, intact judgment & insight - Labs CBC & Chem 7: 01/10/18 08:08 01/10/18 08:08 Labs: Abnormal Lab Results - Last 24 Hours (Table) 01/09/18 01/09/18 01/10/18 Range/Units 17:00 20:39 07:15 WBC (3.8-10.6) k/uL RBC (3.80-5.40) m/uL Hgb (11.4-16.0) gm/dL Hct (34.0-46.0) % BUN (7-17) mg/dL Glucose (74-99) mg/dL POC Glucose (mg/dL) 352 H 379 H 310 H (75-99) mg/dL 01/10/18 01/10/18 Range/Units 08:08 08:08 WBC 2.9 L (3.8-10.6) k/uL RBC 3.16 L (3.80-5.40) m/uL Hgb 9.9 L (11.4-16.0) gm/dL Hct 31.3 L (34.0-46.0) % BUN 27 H (7-17) mg/dL Glucose 313 H (74-99) mg/dL POC Glucose (mg/dL) (75-99) mg/dL Microbiology - Last 24 Hours (Table) 01/04/18 20:00 Blood Culture - Preliminary Blood No Growth after 120 hours 01/06/18 18:42 Blood Culture - Preliminary Blood No Growth after 72 hours 01/06/18 18:20 Blood Culture - Preliminary Blood No Growth after 72 hours Assessment and Plan Plan: Assessment: #1. Acute hypoxemic respiratory failure related to acute extensive bilateral infiltrates, consistent with acute pneumonia, community acquired, and there is a concern for fungal infection in this immunocompromised host #2. Intermittent fever, chills, shortness of breath related to the above #3. Pancytopenia, patient is awaiting to undergo bone marrow biopsy #4. Mild lactic acidosis present on admission, with lactic acid level of 2.2, and the patient was fluid resuscitated with 1 L of crystalloids, and received maintenance IV fluids at a rate of 100 ML per hour, subsequent lactic acid was down to 0.8 #5. Abdominal pain, CT of abdomen and pelvis showed abnormal prominence of the central endometrium, or could possibly represent trapped fluid in the endometrial canal and abnormal endometrial thickening, be followed up with nonemergent pelvic ultrasound #6. Chronic bronchial asthma, and her latest PFT showed FEV1 of 68% of predicted, with post bronchodilator response up to 73% of predicted, and patient was diagnosed with adult onset genetic asthma. This seems to be stable right now #7. Hypertension, hyperlipidemia #8. Diabetes mellitus type 2 #9. Morbid obesity with a BMI of 54.8 kg/m #10. Chronic back pain #11. GERD/reflux on omeprazole #12. Hypothyroidism #13. Anxiety, depression #14. Lifetime nonsmoker #15. Exertional dyspnea, limited exercise capacity, patient had a 6 minute walk test in the pulmonary office, and became severely short of breath after 3 laps, and desatted to 88%. Continue nebulized bronchodilators, continue Symbicort. Plan: Patient is scheduled for bronchoscopy with BAL by Dr. Wylie today, and the patient will be intubated for the procedure, there is a high likelihood that she will require mechanical ventilation postprocedure, and will be placed in the intensive care. Risks and benefits of the procedure were discussed with the patient and her family, and they agree to proceed with a bronchoscopy, to aid the diagnosis and direct antibiotic therapy. I performed a history & physical examination of the patient and discussed their management with my nurse practitioner, Flori Colunga. I reviewed the nurse practitioner's note and agree with the documented findings and plan of care. Lung sounds are positive for initial breath sounds with limited crackles at the left lower lobe. The findings and the impression was discussed with the patient. I attest to the documentation by the nurse practitioner. Time with Patient: Less than 30
[2018-01-10] MEDS: CYANOCOBALAMIN 500 MCG TAB PO SCH (12:49)
[2018-01-10] MEDS ORDERED: NALOXONE 0.4 MG/ML 1 ML VIAL IV PRN (12:54)
[2018-01-10] MEDS ORDERED: PROPOFOL 100 ML IV ONE (13:01)
--- NOTE | 2018-01-10 13:01 | P.PN ---
Subjective Progress Note Date: 01/09/18 Progress note being dictated for Dr. Amos. Interval history: Patient is a 53-year-old male with a known history of hypertension, diabetes type II and previous history of diverticulitis came to ER with complaints of left-sided abdominal pain along with fever and chills worsening for the past 3 days. Patient was also having increased shortness of breath and chest pain with deep breathing. Patient does have cough but without much sputum production. No nausea vomiting. No diarrhea. Patient thought that she was having diverticulitis again and came to the hospital for further evaluation. Patient had diverticular [place] 2 months ago. Denied any sick contacts. No travel. Patient felt generally weak and generalized body aches. Patient was febrile on admission. Denies any leg swelling, back pain, peripheral paresthesias, headaches, sore throat, upper respiratory symptoms. T-max 101.8 Chest x-ray showed cardiomegaly and chronic changes without suspicious acute infiltrate. CT of abdomen pelvis showed new multifocal groundglass opacities in the lung base could reflect new multifocal pneumonia. Correlate clinically Attention to her uterus abnormal prominence of the central endometrium could reflect trapped fluid in the endometrial canal., Abnormal thickening cannot be excluded. Advise nonemergent pelvic ultrasound follow-up tofurther assess. Review of Systems Constitutional: Patient does have fever and chills and muscle aches and generalized body weakness Abdomen: Patient denied nausea vomiting. Patient does have abdominal pain. Cardiovascular: Patient denies any chest pain or short of breath no palpitations. Respiratory: Cough without sputum production. Patient does have shortness of breath Neurologic: Patient denied any numbness or tingling headache. Musculoskeletal: Patient denies any complaints of joint swelling or deformity. Skin: Negative Psychiatric: Negative Endocrine: No heat or cold intolerance. No recent weight gain. Genitourinary: No dysuria or hematuria. All other 14 point ROS negative except the above 01/06/2018 denies cough, desatted, maintaining O2 sats of 86-87% on 4 L nasal cannula, respiratory rate 20, tachycardic. ABGs ordered. Sitting up at side of bed, conversing without shortness of breath. Currently afebrile, T-max 101.1 , blood cultures pending.Denies chest pain, palpitations or increasing shortness of breath. Pancytopenia currently being worked up outpatient with Dr. Atkinson. 01/07/18 T-max 101.7.dyspnea continues ,currently maintaining O2 sats in the high 80s to low 90s on 10 L high flow nasal cannula O2 . Currently wearing 50% Ventimask. Short of breath with minimal exertion, limited reserve. CT reporting new extensive bilateral pulmonary airspace infiltrates compared to prior exam, acute pneumonia, increased paratracheal adenopathy. Mycoplasma IgM , Legionella urine antigen pending.Echo reporting low normal LV function, EF 50- 55%. Developed nosebleed earlier, subsided. Received Levaquin, now receiving Merrem. Infectious disease consulted. 01/08/2018 continues on high flow nasal cannula 10 L. chest x-ray with no significant change .afebrile, T-max 100.7. Steroids initiated yesterday, hyperglycemic. flow cytometry pathology reporting myeloid blasts with consideration of marrow examination. Mycoplasma IgM antibody and Legionella not detected. Multiple episodes of diarrhea reported. 01/09/2018 no overnight events, remains on 10 L high flow nasal cannula maintaining O2 sats in the high 80s to low 90s. Minimal sputum production. Afebrile, cultures currently negative. Scheduled for diagnostic bronchoscopy, bone marrow biopsy tomorrow. Objective - Vital Signs Vital signs: Vital Signs Temp 98.3 F 01/09/18 15:00 Pulse 90 01/09/18 20:03 Resp 16 01/09/18 15:00 BP 118/72 01/09/18 15:00 Pulse Ox 92 L 01/09/18 19:53 Intake & Output 01/09/18 01/09/18 01/10/18 06:59 18:59 06:59 Intake Total 500 200 840 Balance 500 200 840 Intake: Oral 500 200 840 Other: # Voids 1 2 2 - Exam PHYSICAL EXAMINATION: Patient is sitting up in chair, no acute distress, awake alert and oriented. Obese. HEENT: Normocephalic. Neck is supple. Pupils reactive. Nostrils clear. Oral cavity is moist. Neck reveals no JVD, carotid bruits, or thyromegaly. CHEST EXAMINATION: Trachea is central. Symmetrical expansion. Lung reyna clear to auscultation and percussion. Bilateral bases diminished with fine left basilar crackles. CARDIAC: Normal S1, S2 with no gallops. No murmurs ABDOMEN: Soft. Bowel sounds normal. No organomegaly. No abdominal bruits. Extremities: reveal mild edema. No clubbing or cyanosis Neurologically awake, alert, oriented x3 with well-coordinated movements. No focal deficits noted Skin: No rash or skin lesions. Musculoskeletal: No joint swelling or deformity. Normal range of motion. - Labs CBC & Chem 7: 01/10/18 08:08 01/10/18 08:08 Labs: Abnormal Lab Results - Last 24 Hours (Table) 01/09/18 01/09/18 01/09/18 Range/Units 02:39 07:06 07:32 WBC 1.9 L* (3.8-10.6) k/uL RBC 2.85 L (3.80-5.40) m/uL Hgb 9.3 L (11.4-16.0) gm/dL Hct 28.2 L (34.0-46.0) % Plt Count 131 L (150-450) k/uL Neutrophils # (Manual) 0.91 L (1.3-7.7) k/uL Lymphocytes # (Manual) 0.57 L (1.0-4.8) k/uL Myelocytes # (Manual) 0.02 H (0) k/uL Blast Cells # (Man) 0.06 H (0) k/uL Nucleated RBCs 1 H (0-0) /100 WBC Potassium (3.5-5.1) mmol/L BUN (7-17) mg/dL Glucose (74-99) mg/dL POC Glucose (mg/dL) 375 H 345 H (75-99) mg/dL 01/09/18 01/09/18 01/09/18 Range/Units 07:32 12:08 17:00 WBC (3.8-10.6) k/uL RBC (3.80-5.40) m/uL Hgb (11.4-16.0) gm/dL Hct (34.0-46.0) % Plt Count (150-450) k/uL Neutrophils # (Manual) (1.3-7.7) k/uL Lymphocytes # (Manual) (1.0-4.8) k/uL Myelocytes # (Manual) (0) k/uL Blast Cells # (Man) (0) k/uL Nucleated RBCs (0-0) /100 WBC Potassium 5.4 H (3.5-5.1) mmol/L BUN 24 H (7-17) mg/dL Glucose 338 H (74-99) mg/dL POC Glucose (mg/dL) 295 H 352 H (75-99) mg/dL 01/09/18 Range/Units 20:39 WBC (3.8-10.6) k/uL RBC (3.80-5.40) m/uL Hgb (11.4-16.0) gm/dL Hct (34.0-46.0) % Plt Count (150-450) k/uL Neutrophils # (Manual) (1.3-7.7) k/uL Lymphocytes # (Manual) (1.0-4.8) k/uL Myelocytes # (Manual) (0) k/uL Blast Cells # (Man) (0) k/uL Nucleated RBCs (0-0) /100 WBC Potassium (3.5-5.1) mmol/L BUN (7-17) mg/dL Glucose (74-99) mg/dL POC Glucose (mg/dL) 379 H (75-99) mg/dL Microbiology - Last 24 Hours (Table) 01/06/18 18:42 Blood Culture - Preliminary Blood No Growth after 72 hours 01/06/18 18:20 Blood Culture - Preliminary Blood No Growth after 72 hours 01/04/18 20:00 Blood Culture - Preliminary Blood No Growth after 96 hours Assessment and Plan Assessment: Sepsis secondary to acute bibasilar multifocal pneumonia, community-acquired, Mycoplasma IgM antibody and Legionella not detected. Acute hypoxic respiratory failure secondary to the above Lactic acidosis 2.1 admission resolved now Pancytopenia. Patient is being worked up for leukemia and Dr. Atkinson's office.flow cytometry pathology reporting myeloid blasts with consideration of marrow examination. Abdominal pain possibly related to coughing. Resolved now Asthma Hypertension Hyperlipidemia Hypothyroidism Chronic back pain Iron deficiency anemia Recent history of acute diverticulitis Anxiety and depression\ Morbid obesity with BMI 54.8 DVT prophylaxis Diabetes mellitus, elevated hemoglobin A1c 7.8. Hyperglycemia, steroid-induced. Diarrhea, rule out C. diff Plan: Continue on current medication regime ,monitoring and symptomatic treatment. Scheduled for both bronchoscopy and bone marrow biopsy tomorrow. Antibiotics as per Infectious disease. Maintain nebulized bronchodilators, steroids. Blood sugars in the high 200s, recheck pending. The impression and plan of care has been dictated as directed. DrRoberto: I performed a history and examination of this patient, discussed the same with the dictator. I agree with the dictator's note ,documented as a scribe. Any additional findings or plans will be noted.
[2018-01-10 13:03] LABS: Glucose,Whole Blood 218 mg/dL (75-99)
[2018-01-10] MEDS ORDERED: ATROPINE SULFATE 0.1 MG/ML 10ML SYRINGE ONE (13:08)
--- NOTE | 2018-01-10 13:10 | P.PN ---
Subjective Progress Note Date: 01/10/18 Progress note being dictated for Dr. Amos. Interval history: Patient is a 53-year-old male with a known history of hypertension, diabetes type II and previous history of diverticulitis came to ER with complaints of left-sided abdominal pain along with fever and chills worsening for the past 3 days. Patient was also having increased shortness of breath and chest pain with deep breathing. Patient does have cough but without much sputum production. No nausea vomiting. No diarrhea. Patient thought that she was having diverticulitis again and came to the hospital for further evaluation. Patient had diverticular Blaine 2 months ago. Denied any sick contacts. No travel. Patient felt generally weak and generalized body aches. Patient was febrile on admission. Denies any leg swelling, back pain, peripheral paresthesias, headaches, sore throat, upper respiratory symptoms. T-max 101.8 Chest x-ray showed cardiomegaly and chronic changes without suspicious acute infiltrate. CT of abdomen pelvis showed new multifocal groundglass opacities in the lung base could reflect new multifocal pneumonia. Correlate clinically Attention to her uterus abnormal prominence of the central endometrium could reflect trapped fluid in the endometrial canal., Abnormal thickening cannot be excluded. Advise nonemergent pelvic ultrasound follow-up tofurther assess. Review of Systems Constitutional: Patient does have fever and chills and muscle aches and generalized body weakness Abdomen: Patient denied nausea vomiting. Patient does have abdominal pain. Cardiovascular: Patient denies any chest pain or short of breath no palpitations. Respiratory: Cough without sputum production. Patient does have shortness of breath Neurologic: Patient denied any numbness or tingling headache. Musculoskeletal: Patient denies any complaints of joint swelling or deformity. Skin: Negative Psychiatric: Negative Endocrine: No heat or cold intolerance. No recent weight gain. Genitourinary: No dysuria or hematuria. All other 14 point ROS negative except the above 01/06/2018 denies cough, desatted, maintaining O2 sats of 86-87% on 4 L nasal cannula, respiratory rate 20, tachycardic. ABGs ordered. Sitting up at side of bed, conversing without shortness of breath. Currently afebrile, T-max 101.1 , blood cultures pending.Denies chest pain, palpitations or increasing shortness of breath. Pancytopenia currently being worked up outpatient with Dr. Atkinson. 01/07/18 T-max 101.7.dyspnea continues ,currently maintaining O2 sats in the high 80s to low 90s on 10 L high flow nasal cannula O2 . Currently wearing 50% Ventimask. Short of breath with minimal exertion, limited reserve. CT reporting new extensive bilateral pulmonary airspace infiltrates compared to prior exam, acute pneumonia, increased paratracheal adenopathy. Mycoplasma IgM , Legionella urine antigen pending.Echo reporting low normal LV function, EF 50- 55%. Developed nosebleed earlier, subsided. Received Levaquin, now receiving Merrem. Infectious disease consulted. 01/08/2018 continues on high flow nasal cannula 10 L. chest x-ray with no significant change .afebrile, T-max 100.7. Steroids initiated yesterday, hyperglycemic. flow cytometry pathology reporting myeloid blasts with consideration of marrow examination. Mycoplasma IgM antibody and Legionella not detected. Multiple episodes of diarrhea reported. 01/09/2018 no overnight events, remains on 10 L high flow nasal cannula maintaining O2 sats in the high 80s to low 90s. Minimal sputum production. Afebrile, cultures currently negative. Scheduled for diagnostic bronchoscopy, bone marrow biopsy tomorrow. 01/10/2018 maintained on Merrem as per infectious disease. Afebrile, cultures negative. continues on 10 L high flow nasal cannula with current O2 sats in the mid 90s.NPO, awaiting bronchoscopy and bone marrow biopsy today. Denies chest pain, palpitations. Objective - Vital Signs Vital signs: Vital Signs Temp 98.4 F 01/10/18 10:35 Pulse 56 L 01/10/18 10:35 Resp 16 01/10/18 10:35 BP 136/78 01/10/18 10:35 Pulse Ox 98 01/10/18 10:35 Intake & Output 01/09/18 01/10/18 01/10/18 18:59 06:59 18:59 Intake Total 200 840 50 Balance 200 840 50 Intake: IV 50 Oral 200 840 Other: # Voids 2 2 # Bowel Movements 1 - Exam PHYSICAL EXAMINATION: Patient is sitting up in chair, visiting with family, no acute distress, awake alert and oriented. Obese. HEENT: Normocephalic. Neck is supple. Pupils reactive. Nostrils clear. Oral cavity is moist. Neck reveals no JVD, carotid bruits, or thyromegaly. CHEST EXAMINATION: Trachea is central. Symmetrical expansion. Lung reyna clear to auscultation and percussion. Bilateral bases diminished with fine left basilar crackles. CARDIAC: Normal S1, S2 with no gallops. No murmurs ABDOMEN: Soft. Bowel sounds normal. No organomegaly. No abdominal bruits. Extremities: reveal mild edema. No clubbing or cyanosis Neurologically awake, alert, oriented x3 with well-coordinated movements. No focal deficits noted Skin: No rash or skin lesions. Musculoskeletal: No joint swelling or deformity. Normal range of motion. - Labs CBC & Chem 7: 01/10/18 08:08 01/10/18 08:08 Labs: Abnormal Lab Results - Last 24 Hours (Table) 01/09/18 01/09/18 01/09/18 Range/Units 12:08 17:00 20:39 WBC (3.8-10.6) k/uL RBC (3.80-5.40) m/uL Hgb (11.4-16.0) gm/dL Hct (34.0-46.0) % BUN (7-17) mg/dL Glucose (74-99) mg/dL POC Glucose (mg/dL) 295 H 352 H 379 H (75-99) mg/dL 01/10/18 01/10/18 01/10/18 Range/Units 07:15 08:08 08:08 WBC 2.9 L (3.8-10.6) k/uL RBC 3.16 L (3.80-5.40) m/uL Hgb 9.9 L (11.4-16.0) gm/dL Hct 31.3 L (34.0-46.0) % BUN 27 H (7-17) mg/dL Glucose 313 H (74-99) mg/dL POC Glucose (mg/dL) 310 H (75-99) mg/dL Microbiology - Last 24 Hours (Table) 01/04/18 20:00 Blood Culture - Preliminary Blood No Growth after 120 hours 01/06/18 18:42 Blood Culture - Preliminary Blood No Growth after 72 hours 01/06/18 18:20 Blood Culture - Preliminary Blood No Growth after 72 hours Assessment and Plan Assessment: Sepsis secondary to acute bibasilar multifocal pneumonia, community-acquired, Mycoplasma IgM antibody and Legionella not detected. Acute hypoxic respiratory failure secondary to the above, bronchoscopy pending Lactic acidosis 2.1 admission resolved now Pancytopenia. Patient is being worked up for leukemia and Dr. Atkinson's office.flow cytometry pathology reporting myeloid blasts with Bone marrow BX pending Abdominal pain possibly related to coughing. Resolved now Asthma Hypertension Hyperlipidemia Hypothyroidism Chronic back pain Iron deficiency anemia Recent history of acute diverticulitis Anxiety and depression\ Morbid obesity with BMI 54.8 DVT prophylaxis Diabetes mellitus, elevated hemoglobin A1c 7.8. Hyperglycemia, steroid-induced. Diarrhea, rule out C. diff Plan: Continue on current medication regime ,monitoring and symptomatic treatment. Awaiting bronchoscopy and bone marrow biopsy. Patient understands that she probably will be returning to ICU, post procedures intubated.Antibiotics as per Infectious disease. Maintain nebulized bronchodilators, steroids. Elevated [id number],Lantus increased. Close monitoring of Accu-Cheks with further orders to follow. The impression and plan of care has been dictated as directed. : I performed a history and examination of this patient, discussed the same with the dictator. I agree with the dictator's note ,documented as a scribe. Any additional findings or plans will be noted.
[2018-01-10] MEDS: PROPOFOL 1,000 MG in EMPTY BAG 1 BAG IV SCH ×3 (13:15→18:29)
--- NOTE | 2018-01-10 13:21 | P.PCN ---
Date of Procedure: 01/10/18 Preoperative Diagnosis: Pancytopenia, abnormal peripheral smear Postoperative Diagnosis: Same Anesthesia: GETA Surgeon: El Allen Air Filler #1: Stated None Estimated Blood Loss (ml): 3 Pathology: other (Bone marrow aspirate) Condition: stable Disposition: ICU Indications for Procedure: Pancytopenia, with abnormal peripheral smear including blasts Operative Findings: Bone marrow aspirate sample appeared to be adequate. Biopsy sample unable to be obtained Description of Procedure: The procedure was done immediately following the patient's bronchoscopy in the OR. The patient was intubated for the bronchoscopy, and continue to be intubated for the bone marrow aspiration biopsy. The procedure had been discussed with her in detail on the floor, and consent obtained there. The patient was placed in the right lateral decubitus position. The area over both illiac crest was cleaned and prepped with chlorhexidine and sterile draping. The patient continued under general anesthesia, with monitoring by the fibre composite technician. Local anesthesia was administered with lidocaine to the left posterior and a crest. A Jamshidi needle was then inserted, and bone marrow aspirate obtained. A biopsy specimen was not obtained on the initial past. Therefore to additional passes were made , which were also unsuccessful in obtaining the biopsy. Lidocaine was then administered to the area of the right posterior iliac crest. A Jamshidi needle was then inserted, but attempted biopsy was again unsuccessful despite 2 passes. It was therefore decided to terminate the procedure. Blood loss was minimal, and hemostasis was easily achieved. The procedure was technically difficult, because of the patient's large body habitus and significant soft tissue in the area of the Jamshidi needle insertions. It was decided by the fibre composite technician to observe the patient in the ICU post procedure, with continued intubation, as she was apparently having desaturations. The procedure was discussed in detail with the patient's family.
--- NOTE | 2018-01-10 13:31 | XR ---
EXAMINATION TYPE: XR chest 1V portable DATE OF EXAM: 01/10/2018 COMPARISON: Prior chest 01/09/2018 HISTORY: Intubated TECHNIQUE: Single frontal view of the chest is obtained. FINDINGS: Endotracheal tube is overlying the tracheal air column and is been placed in the interval. It is overlying appropriate position. Bilateral airspace disease again noted. There are overlying ca rdiac leads. Heart is enlarged. IMPRESSION: No evident complication status post intubation.
[2018-01-10] MEDS ORDERED: FUROSEMIDE 10 MG/ML 4 ML VIAL IV STA (13:54)
--- NOTE | 2018-01-10 14:11 | P.PN ---
Progress Note - Text Progress Note Date: 01/10/18 Patient underwent bronchoscopy and bronchoalveolar lavage under general anesthesia and the operating room after she was intubated by CONSTRUCTION CARPENTER. Please refer to full operative report/bronchoscopy done today. After bronchoscopy and bone marrow biopsy, patient remains on mechanical ventilation, her O2 saturations were marginal, and could not be extubated by CONSTRUCTION CARPENTER. Prior to my procedure, I did inform the patient and her family that there is a good chance that she may end up requiring to stay on mechanical ventilation after the bronchoscopy however we will try to do our best to extubating if tolerated. Based on her postoperative findings, and based on her overall clinical status and worsening chest x-ray, we felt it would be best to keep the patient on mechanical ventilation. Patient was admitted to the ICU, presently on mechanical ventilation, ventilator settings are tidal volume of 400 assist control rate of 22 FiO2 of 100%, PEEP of 5, ABG is pending. Chest x-ray showed worsening airspace disease noted bilaterally, differential diagnoses includes pneumonia, ARDS, and noncardiogenic pulmonary edema. The possibility of cardiogenic pulmonary edema is felt to be less likely however considering the significant worsening of the chest x-ray, I will go ahead and give the patient a trial of Lasix 40 mg IV push times one. I have also increased her steroids, The patient on Merrem, and we will await the final report on her cultures of the bronchoalveolar lavage fluid. Patient will be kept in the ICU, she did placed on propofol, continue antibiotics, bronchodilators, steroids, and she is being followed by infectious disease as well as hematology/oncology. Prognosis at this point is definitely guarded, we'll continue to follow closely. Critical care time in the ICU is 34 minutes, not including the time spent on bronchoscopy. I would also arrange for the patient had a PICC line, I have discussed her condition with family both bronchoscopy and will update them on her condition on a regular basis.
[2018-01-10 14:12] LABS: ABG Base Excess 2.3 mmol/L; ABG HCO3 28 mmol/L (21-25); ABG Oxygen Saturation 97.9 % (94-97); ABG PCO2 55 mmHg (35-45); ABG PH 7.32 (7.35-7.45); ABG PO2 106 mmHg (83-108); ABG TCO2 30 mmol/L (19-24)
[2018-01-10 14:33] LABS: Band Neutrophils % 1 %; Eosinophils # (M) 0.03 k/uL (0-0.7); Neutrophils % (M) 36 %; Nucleated Red Blood Cells 2 /100 WBC (0-0); Total Cells Counted 200
[2018-01-10 14:35] LABS: Blast Cells # (M) 0.11 k/uL (0); Lymphocytes # (M) 1.12 k/uL (1.0-4.8); Monocytes # (M) 0.56 k/uL (0-1.0); WBC 2.8 k/uL (3.8-10.6)
[2018-01-10 14:49] LABS: Glucose,Whole Blood 232 mg/dL (75-99)
[2018-01-10 15:16] LABS: INR 1.1 (<1.2); Prothrombin Time 10.8 sec (9.0-12.0)
[2018-01-10] MEDS ORDERED: LIDOCAINE 2% INJ 20 MG/ML SQ ONE (15:29)
--- NOTE | 2018-01-10 16:00 | XR ---
EXAMINATION TYPE: XR chest 1V portable DATE OF EXAM: 01/10/2018 COMPARISON: Prior chest 01/10/2018 HISTORY: Status post PICC line placement TECHNIQUE: Single frontal view of the chest is obtained. FINDINGS: There is been interval placement of a left-sided PICC line, distal tip is within the right atrium. No other significant interval change. IMPRESSION: No evident complication status post PICC line placement.
--- NOTE | 2018-01-10 16:01 | IR ---
EXAMINATION TYPE: IR cvc insert >=5 years DATE OF EXAM: 01/10/2018 COMPARISON: NONE HISTORY: Intubated, needs long-term intravenous access for total parenteral nutrition FINDINGS: Maximal barrier technique was utilized. The skin overlying the left brachial vein was loca lized with ultrasound and noted to be compressible and patent by ultrasound. An ultrasound image was obtained and submitted on patient's chart. Sterile technique utilized with the ultrasound machine. T he skin overlying was prepped and draped and Lidocaine used for local anesthesia. A skin jose was ma de with a scalpel. Access was gained to the vein under direct ultrasound guidance with a 21-gauge ne edle and a 0.018 inch wire was advanced. Access site was dilated with a peel-away sheath and the cat heter tailored to length. Catheter advanced centrally and a post procedure chest x-ray verified plac ement with the tip in the right atrium, catheter withdrawn 5 cm. Catheter was fixed to the skin with suture and a sterile dressing placed. Hemostasis achieved and the catheter was aspirated and flushe d with sterile saline. The patient remained in stable condition. IMPRESSION: STATUS POST ULTRASOUND GUIDED PICC LINE PLACEMENT, READY FOR USE. THIS PROCEDURE WAS PER FORMED BY THE UNDERSIGNED.
[2018-01-10 16:35] LABS: Appearance,BF Blood Tinged; Color,BF Colorless
[2018-01-10] MEDS: methylPREDNISolone SOD SUCCI 125 MG/2 ML VIAL IV SCH ×2 (16:43→23:03)
[2018-01-10 17:06] LABS: RBC, Body Fluid 680 /uL
[2018-01-10 17:07] LABS: Nucleated Cells, Body Fluid 20 /uL
[2018-01-10 17:12] LABS: Mononuclear WBC,Body Fluid 35 %; Polynuclear WBC,Body Fluid 64 %; Total Cells Counted,Body Fluid 100
[2018-01-10] MEDS ORDERED: INSULIN ASPART 100 UNIT/ML 1 ML 10 ML VIAL SQ SCH (17:30)
--- NOTE | 2018-01-10 17:32 | P.PN ---
Subjective Progress Note Date: 01/10/18 The patient was seen and evaluated in the OR, prior to bone marrow aspiration biopsy. She continues to have generalized weakness, and shortness of breath with exertion. This is overall stable. She denies any overt fever or chills today. No obvious bleeding, nausea or vomiting noted. Objective - Vital Signs Vital signs: Vital Signs Temp 97.6 F 01/10/18 13:00 Pulse 58 L 01/10/18 16:59 Resp 22 01/10/18 16:59 BP 166/77 01/10/18 13:30 Pulse Ox 99 01/10/18 15:00 Intake & Output 01/09/18 01/10/18 01/10/18 18:59 06:59 18:59 Intake Total 200 840 582.335 Balance 200 840 582.335 Intake: IV 500 Intake, IV Titration 82.335 Amount Propofol 1,000 mg In 82.335 Empty Bag 1 bag @ Titrate IV .Q0M STEPHEN Rx#: [id number] Oral 200 840 Other: # Voids 2 2 # Bowel Movements 1 ABP, PAP, CO, CI - Last Documented Arterial Blood Pressure 161/82 - Constitutional General appearance: Present: no acute distress - EENT Eyes: Present: EOMI ENT: Present: hearing grossly normal, normal oropharynx - Respiratory Respiratory: left: diminished - Cardiovascular Rhythm: regular Heart sounds: normal: S1, S2 - Gastrointestinal General gastrointestinal: Present: normal bowel sounds, soft - Integumentary Integumentary: Present: normal - Neurologic Neurologic: Present: CNII-XII intact - Musculoskeletal Musculoskeletal: Present: generalized weakness, strength equal bilaterally - Psychiatric Psychiatric: Present: A&O x's 3, appropriate affect - Labs CBC & Chem 7: 01/10/18 08:08 01/10/18 08:08 Labs: Abnormal Lab Results - Last 24 Hours (Table) 01/09/18 01/09/18 01/10/18 Range/Units 17:00 20:39 07:15 WBC (3.8-10.6) k/uL RBC (3.80-5.40) m/uL Hgb (11.4-16.0) gm/dL Hct (34.0-46.0) % Neutrophils # (Manual) (1.3-7.7) k/uL Blast Cells # (Man) (0) k/uL Nucleated RBCs (0-0) /100 WBC ABG pH (7.35-7.45) ABG pCO2 (35-45) mmHg ABG HCO3 (21-25) mmol/L ABG Total CO2 (19-24) mmol/L ABG O2 Saturation (94-97) % BUN (7-17) mg/dL Glucose (74-99) mg/dL POC Glucose (mg/dL) 352 H 379 H 310 H (75-99) mg/dL 01/10/18 01/10/18 01/10/18 Range/Units 08:08 08:08 13:01 WBC 2.8 L (3.8-10.6) k/uL RBC 3.16 L (3.80-5.40) m/uL Hgb 9.9 L (11.4-16.0) gm/dL Hct 31.3 L (34.0-46.0) % Neutrophils # (Manual) 1.00 L (1.3-7.7) k/uL Blast Cells # (Man) 0.11 H (0) k/uL Nucleated RBCs 2 H (0-0) /100 WBC ABG pH (7.35-7.45) ABG pCO2 (35-45) mmHg ABG HCO3 (21-25) mmol/L ABG Total CO2 (19-24) mmol/L ABG O2 Saturation (94-97) % BUN 27 H (7-17) mg/dL Glucose 313 H (74-99) mg/dL POC Glucose (mg/dL) 218 H (75-99) mg/dL 01/10/18 01/10/18 Range/Units 14:10 14:47 WBC (3.8-10.6) k/uL RBC (3.80-5.40) m/uL Hgb (11.4-16.0) gm/dL Hct (34.0-46.0) % Neutrophils # (Manual) (1.3-7.7) k/uL Blast Cells # (Man) (0) k/uL Nucleated RBCs (0-0) /100 WBC ABG pH 7.32 L (7.35-7.45) ABG pCO2 55 H (35-45) mmHg ABG HCO3 28 H (21-25) mmol/L ABG Total CO2 30 H (19-24) mmol/L ABG O2 Saturation 97.9 H (94-97) % BUN (7-17) mg/dL Glucose (74-99) mg/dL POC Glucose (mg/dL) 232 H (75-99) mg/dL Microbiology - Last 24 Hours (Table) 01/04/18 20:00 Blood Culture - Preliminary Blood No Growth after 120 hours 01/06/18 18:42 Blood Culture - Preliminary Blood No Growth after 72 hours 01/06/18 18:20 Blood Culture - Preliminary Blood No Growth after 72 hours Assessment and Plan (1) Pancytopenia Narrative/Plan: This persists, but counts actually appears slightly better today. Hemoglobin is 9.9 versus 9.3. However white blood count was greater than 2000 with ANC 1000 today, and platelets were 180. WBC differential remains abnormal with persistent blasts. Therefore the patient is to have a bone marrow aspiration biopsy today. The procedure has been discussed in detail with her. While results are pending from the pathology, continue to monitor with supportive transfusions if needed Current Visit: Yes Status: Acute Priority: High Code(s): D61.818 - OTHER PANCYTOPENIA SNOMED Code(s): 706296073 (2) Pneumonia Narrative/Plan: The case was discussed extensively with the pulmonary medicine who performed a bronchoscopy today. The patient is felt to be stable clinically but x-ray showed worsening, leading to the bronchoscopy. No mass lesion or extrinsic compression, or significant purulent secretions were seen. Microbiology as cytology studies are pending. Possible differentials for her pancytopenia were also discussed with the pulmonary service. Current Visit: Yes Status: Acute Code(s): J18.9 - PNEUMONIA, UNSPECIFIED ORGANISM SNOMED Code(s): 756280329
[2018-01-10] MEDS: LACTATED RINGERS 1,000 ML IV SCH (18:27)
[2018-01-10 20:44] LABS: Glucose,Whole Blood 258 mg/dL (75-99)
[2018-01-10] MEDS: CHLORHEXIDINE GLUCONATE 15 ML CUP MUCOUS MEM SCH (20:53)
[2018-01-10] MEDS: MONTELUKAST 10 MG TAB PO SCH (20:55)
[2018-01-10] MEDS ORDERED: INSULIN DETEMIR 100 UNIT/ML 10 ML VIAL SQ SCH (21:00)
[2018-01-10] MEDS: ZOLPIDEM 10 MG TAB PO SCH (21:02)
[2018-01-10] MEDS ORDERED: FUROSEMIDE 10 MG/ML 2 ML VIAL IV ONE (22:20)
[2018-01-10] MEDS ORDERED: HYDROmorphone 1 MG/ML 1 ML SYRINGE IVP PRN (22:23)
--- NOTE | 2018-01-10 22:46 | XR ---
EXAMINATION TYPE: XR chest 1V DATE OF EXAM: 01/10/2018 COMPARISON: Today HISTORY: Catheter placement TECHNIQUE: Single frontal view of the chest is obtained. FINDINGS: There is some pulmonary edema. Endotracheal tube is 4 cm from the stefanie in good position. There is nasogastric tube in good position. There is left side subclavian catheter with the tip in t he superior vena cava. There is no pneumothorax. Heart appears enlarged. IMPRESSION: Pulmonary edema is unchanged compared to exam at 4:00 PM. I would consider both RDS and congestive heart failure.
[2018-01-10] MEDS: hydrALAZINE HCL 20 MG/ML 1 ML VIAL IVP PRN (23:17)
--- NOTE | 2018-01-10 23:23 | P.PN ---
Subjective Progress Note Date: 01/10/18 This is a 53-year-old female patient known to ID service as she was seen during her hospitalization in July of this year. At that time she was treated for acute asthma exacerbation complicated by influenza B tracheobronchitis. ID was consulted regarding a cellulitis of the lower extremities. Patient was discharged home on Keflex. Regarding her legs, patient states that they occasionally get red but not a significant problem at this time. Patient states that she has had for about the last month difficulty with ambulating very far and early fatigue and shortness of breath. She states she has been sick for about one week or more with fever and worsening shortness of breath along with cough. She came into [facility] emergency center and on CAT scan of the chest done on 01/06 showed new extensive bilateral pulmonary airspace infiltrate consistent with acute asthma. Increased hair a tracheal adenopathy. She was originally treated with Levaquin and has been switched over to meropenem by Dr. Rubalcava. Patient is also been febrile with pancytopenia. Mycoplasma pneumoniae IgM was normal and Legionella antigen was not detected. Flow cytology recommends consideration of a marrow examination. Consult has been added for oncology. Patient has had ongoing difficulty with hypoxia and remains on high flow nasal cannula at 10 L pulse oxing 86%. She states she becomes extremely winded is getting to the commode chair. Her course has been complicated by episode of epistaxis which is now controlled and also initially vomiting which is also been resolved. She does state that she has 4 episodes of diarrhea today. 01/10/2018 patient has had some progression of her status in that her pulmonary status has not improved and her leukopenia and anemia have worsened. She has been seen by both pulmonary critical care and oncology and constantly has now undergone a bronchoscopy and a bone marrow aspiration. She has respiratory failure and required ongoing mechanical ventilation after her bronchoscopy,is in the intensive care unit. She is sedated but not requiring vasopressor therapy. Objective - Vital Signs Vital signs: Vital Signs Temp 97.7 F 01/10/18 20:00 Pulse 53 L 01/10/18 20:06 Resp 22 01/10/18 20:06 BP 166/77 01/10/18 13:30 Pulse Ox 97 01/10/18 20:00 Intake & Output 01/10/18 01/10/18 01/11/18 06:59 18:59 06:59 Intake Total 840 777.442 20 Output Total 1900 100 Balance 840 -1122.558 -80 Intake: IV 500 Intake, IV Titration 277.442 20 Amount Propofol 1,000 mg In 177.442 Empty Bag 1 bag @ Titrate IV .Q0M STEPHEN Rx#: [id number] Sodium Chloride 0.9% 1, 100 20 000 ml @ 20 mls/hr IV . Q24H STEPHEN Rx#:[id number] Oral 840 Output: Urine 1900 100 Other: Voiding Method Indwelling Catheter # Voids 2 # Bowel Movements 1 ABP, PAP, CO, CI - Last Documented Arterial Blood Pressure 149/76 - Exam Gen: This is a morbidly obese 53-year-old female. She is status post bronchoscopy as well as bone marrow aspiration. She required intubation for the bronchoscopy and this remained intubated mechanically ventilated at this time. She over does not have hypotension. HEENT: Head is atraumatic, normocephalic. Pupils equal, round. Sclerae is anicteric. Conjunctiva pink. Mucous members of the mouth are moist. No thrush noted. NECK: Supple. No JVD. No lymphadenopathy. No thyromegaly. LUNGS: Diminished bilaterally. No wheezes. Mild intercostal retractions. HEART: Regular rate and rhythm. No murmur. ABDOMEN: Soft. Bowel sounds are present. No masses. No tenderness. EXTREMITIES: Trace bilateral pedal edema. No calf tenderness. Dorsalis pedis + 2 bilaterally. NEUROLOGICAL: Sedated with propofol. - Labs CBC & Chem 7: 01/10/18 08:08 01/10/18 08:08 Labs: Abnormal Lab Results - Last 24 Hours (Table) 01/10/18 01/10/18 01/10/18 Range/Units 07:15 08:08 08:08 WBC 2.8 L (3.8-10.6) k/uL RBC 3.16 L (3.80-5.40) m/uL Hgb 9.9 L (11.4-16.0) gm/dL Hct 31.3 L (34.0-46.0) % Neutrophils # (Manual) 1.00 L (1.3-7.7) k/uL Blast Cells # (Man) 0.11 H (0) k/uL Nucleated RBCs 2 H (0-0) /100 WBC ABG pH (7.35-7.45) ABG pCO2 (35-45) mmHg ABG HCO3 (21-25) mmol/L ABG Total CO2 (19-24) mmol/L ABG O2 Saturation (94-97) % BUN 27 H (7-17) mg/dL Glucose 313 H (74-99) mg/dL POC Glucose (mg/dL) 310 H (75-99) mg/dL 01/10/18 01/10/18 01/10/18 Range/Units 13:01 14:10 14:47 WBC (3.8-10.6) k/uL RBC (3.80-5.40) m/uL Hgb (11.4-16.0) gm/dL Hct (34.0-46.0) % Neutrophils # (Manual) (1.3-7.7) k/uL Blast Cells # (Man) (0) k/uL Nucleated RBCs (0-0) /100 WBC ABG pH 7.32 L (7.35-7.45) ABG pCO2 55 H (35-45) mmHg ABG HCO3 28 H (21-25) mmol/L ABG Total CO2 30 H (19-24) mmol/L ABG O2 Saturation 97.9 H (94-97) % BUN (7-17) mg/dL Glucose (74-99) mg/dL POC Glucose (mg/dL) 218 H 232 H (75-99) mg/dL 01/10/18 Range/Units 20:42 WBC (3.8-10.6) k/uL RBC (3.80-5.40) m/uL Hgb (11.4-16.0) gm/dL Hct (34.0-46.0) % Neutrophils # (Manual) (1.3-7.7) k/uL Blast Cells # (Man) (0) k/uL Nucleated RBCs (0-0) /100 WBC ABG pH (7.35-7.45) ABG pCO2 (35-45) mmHg ABG HCO3 (21-25) mmol/L ABG Total CO2 (19-24) mmol/L ABG O2 Saturation (94-97) % BUN (7-17) mg/dL Glucose (74-99) mg/dL POC Glucose (mg/dL) 258 H (75-99) mg/dL Microbiology - Last 24 Hours (Table) 01/04/18 20:00 Blood Culture - Final Blood No Growth after 144 hours 01/06/18 18:42 Blood Culture - Preliminary Blood No Growth after 96 hours 01/06/18 18:20 Blood Culture - Preliminary Blood No Growth after 96 hours Laboratory Results WBC 2.8 k/uL (3.8-10.6) L 01/10/18 08:08 RBC 3.16 m/uL (3.80-5.40) L 01/10/18 08:08 Hgb 9.9 gm/dL (11.4-16.0) L 01/10/18 08:08 Hct 31.3 % (34.0-46.0) L 01/10/18 08:08 MCV 99.1 fL (80.0-100.0) 01/10/18 08:08 MCH 31.5 pg (25.0-35.0) 01/10/18 08:08 MCHC 31.7 g/dL (31.0-37.0) 01/10/18 08:08 RDW 14.9 % (11.5-15.5) 01/10/18 08:08 Plt Count 180 k/uL (150-450) 01/10/18 08:08 Neutrophils % (Manual) 36 % 01/10/18 08:08 Band Neutrophils % 1 % 01/10/18 08:08 Lymphocytes % (Manual) 40 % 01/10/18 08:08 Monocytes % (Manual) 20 % 01/10/18 08:08 Eosinophils % (Manual) 1 % 01/10/18 08:08 Basophils % (Manual) 1 % 01/05/18 08:50 Myelocytes % 1 % 01/09/18 07:32 Blast Cells % 4 % 01/10/18 08:08 Neutrophils # (Manual) 1.00 k/uL (1.3-7.7) L 01/10/18 08:08 Lymphocytes # (Manual) 1.12 k/uL (1.0-4.8) 01/10/18 08:08 Monocytes # (Manual) 0.56 k/uL (0-1.0) 01/10/18 08:08 Eosinophils # (Manual) 0.03 k/uL (0-0.7) 01/10/18 08:08 Basophils # (Manual) 0.03 k/uL (0-0.2) 01/05/18 08:50 Myelocytes # (Manual) 0.02 k/uL (0) H 01/09/18 07:32 Blast Cells # (Man) 0.11 k/uL (0) H 01/10/18 08:08 Nucleated RBCs 2 /100 WBC (0-0) H 01/10/18 08:08 Manual Slide Review Performed 01/10/18 08:08 Pathologist Review See comment A 01/05/18 08:50 RBC Morphology Normal 01/04/18 20:00 Poikilocytosis (manual Present 01/09/18 07:32 Macrocytosis Slight 01/10/18 08:08 PT 10.8 sec (9.0-12.0) 01/10/18 14:35 INR 1.1 (<1.2) 01/10/18 14:35 APTT 22.2 sec (22.0-30.0) 01/04/18 20:00 Sample Site [place] 01/10/18 14:10 ABG pH 7.32 (7.35-7.45) L 01/10/18 14:10 ABG pCO2 55 mmHg (35-45) H 01/10/18 14:10 ABG pO2 106 mmHg (83-108) 01/10/18 14:10 ABG HCO3 28 mmol/L (21-25) H 01/10/18 14:10 ABG Total CO2 30 mmol/L (19-24) H 01/10/18 14:10 ABG O2 Saturation 97.9 % (94-97) H 01/10/18 14:10 ABG Base Excess 2.3 mmol/L 01/10/18 14:10 Bk Test no 01/10/18 14:10 FiO2 100 % 01/10/18 14:10 Sodium 139 mmol/L (137-145) 01/10/18 08:08 Potassium 4.9 mmol/L (3.5-5.1) 01/10/18 08:08 Chloride 102 mmol/L (98-107) 01/10/18 08:08 Carbon Dioxide 30 mmol/L (22-30) 01/10/18 08:08 Anion Gap 7 mmol/L 01/10/18 08:08 BUN 27 mg/dL (7-17) H 01/10/18 08:08 Creatinine 0.68 mg/dL (0.52-1.04) 01/10/18 08:08 Est GFR (CKD-EPI)AfAm >90 (>60 ml/min/1.73 sqM) 01/10/18 08:08 Est GFR (CKD-EPI)NonAf >90 (>60 ml/min/1.73 sqM) 01/10/18 08:08 Glucose 313 mg/dL (74-99) H 01/10/18 08:08 POC Glucose (mg/dL) 258 mg/dL (75-99) H 01/10/18 20:42 POC Glu Guide Setter ID [place] 01/10/18 20:[address] Glu mg/dL 177 01/05/18 08:50 Hemoglobin A1c 7.8 % (4.0-6.0) H 01/05/18 08:50 Lactic Ac Sepsis Rflx Y 01/04/18 20:51 Plasma Lactic Acid [place] 0.8 mmol/L (0.7-2.0) 01/04/18 23:55 Calcium 8.7 mg/dL (8.4-10.2) 01/10/18 08:08 Magnesium 2.2 mg/dL (1.6-2.3) 01/09/18 07:32 Total Bilirubin 1.1 mg/dL (0.2-1.3) 01/04/18 20:00 AST 28 U/L (14-36) 01/04/18 20:00 ALT 33 U/L (9-52) 01/04/18 20:00 Alkaline Phosphatase 82 U/L (38-126) 01/04/18 20:00 Total Creatine Kinase 49 U/L (30-135) 01/04/18 20:00 CK-MB (CK-2) <0.2 ng/mL (0.0-2.4) 01/04/18 20:00 CK-MB (CK-2) Rel Index 01/04/18 20:00 Troponin I <0.012 ng/mL (0.000-0.034) 01/04/18 20:00 NT-Pro-B Natriuret Pep 576 pg/mL 01/06/18 08:35 Total Protein 7.2 g/dL (6.3-8.2) 01/04/18 20:00 Albumin 4.1 g/dL (3.5-5.0) 01/04/18 20:00 Urine Color Yellow 01/04/18 20:00 Urine Appearance Clear (Clear) 01/04/18 20:00 Urine pH 7.0 (5.0-8.0) 01/04/18 20:00 Ur Specific [place] 1.010 (1.001-1.035) 01/04/18 20:00 Urine Protein Negative (Negative) 01/04/18 20:00 Urine Glucose (UA) Negative (Negative) 01/04/18 20:00 Urine Ketones Negative (Negative) 01/04/18 20:00 Urine Blood Negative (Negative) 01/04/18 20:00 Urine Nitrite Negative (Negative) 01/04/18 20:00 Urine Bilirubin Negative (Negative) 01/04/18 20:00 Urine Urobilinogen <2.0 mg/dL (<2.0) 01/04/18 20:00 Ur Leukocyte Esterase Negative (Negative) 01/04/18 20:00 Fluid Source Bronchial Wash 01/10/18 11:38 Fluid Color Colorless 01/10/18 11:38 Fluid Appearance Blood Tinged 01/10/18 11:38 Fluid RBC 680 /uL 01/10/18 11:38 Fluid Nucleated Cells 20 /uL 01/10/18 11:38 Fluid Polynuclear WBCs 64 % 01/10/18 11:38 Fluid Mononuclear WBCs 35 % 01/10/18 11:38 Fluid Eosinophils 1 % 01/10/18 11:38 Urine Legionella Ag Not detected (Not detected) 01/06/18 16:51 Mycoplasma pneumon IgM 0.22 INDEX (<=0.90) 01/06/18 08:35 Flow Results See Pathology Report 01/05/18 08:50 Microbiology 01/04/18 20:00 Blood Blood Culture - Final No Growth after 144 hours 01/06/18 18:42 Blood Blood Culture - Preliminary No Growth after 96 hours 01/06/18 18:20 Blood Blood Culture - Preliminary No Growth after 96 hours 01/04/18 20:00 Urine,Voided Urine Culture - Final Assessment and Plan (1) Pneumonia Narrative/Plan: This pleasant 53-year-old woman is have underlying asthma and last time she was ill she had cellulitis prior to that she had influenza B and exacerbation of her asthma. Now presents with progressive acute illness. Has been seen in the outpatient setting by oncology because of leukopenia. Workup had been started. Patient is not having difficulties with worsening leukopenia anemia and bleeding. She remains acutely ill with pneumonia and is also having difficulties with diarrhea. The patient has now been seen again by oncology and the peripheral smear is markedly abnormal with blasts that are evident and consequently they are planning for the bone marrow biopsy and aspirate as soon as they possibly can. At this time she is on broad-spectrum antibiotic therapy. Her fevers are controlled and she is stable. Certainly if she has acute leukemia will be worried about an Aspergillus infection. Galactomannan antigen testing is requested at this time to guide treatment. 01/10/2018 the patient is now status post bronchoscopy and has remained intubated sedated and mechanically ventilated, bone marrow aspiration also performed. Findings the bronchoscopy to further help direct antimicrobial therapy including the potential addition of antifungal therapy for Aspergillus. She fortunately is quite comfortable at this point in time. She is profoundly ill and await the bone marrow results determine if there is a significant derangement of the bone marrow. Is on Merrem and is not febrile but has progressive leukopenia. Current Visit: Yes Status: Acute Code(s): J18.9 - PNEUMONIA, UNSPECIFIED ORGANISM SNOMED Code(s): 850124688 (2) Pancytopenia Current Visit: Yes Status: Acute Priority: High Code(s): D61.818 - OTHER PANCYTOPENIA SNOMED Code(s): 504554936 (3) Obesity, Class III, BMI 40-49.9 (morbid obesity) Current Visit: No Status: Acute Code(s): E66.01 - MORBID (SEVERE) OBESITY DUE TO EXCESS CALORIES SNOMED Code(s): 980326745
[2018-01-11 02:30] LABS: Glucose,Whole Blood 288 mg/dL (75-99)
[2018-01-11] MEDS: INSULIN ASPART 100 UNIT/ML 1 ML 10 ML VIAL SQ SCH ×4 (02:32→17:26)
[2018-01-11] MEDS: SYMBICORT 160-4.5 MCG INHALER INHALATION SCH (02:40)
[2018-01-11] MEDS: PROPOFOL 1,000 MG in EMPTY BAG 1 BAG IV SCH (03:15)
[2018-01-11] MEDS: SODIUM CHLORIDE 0.9% 1,000 ML IV SCH (04:27)
[2018-01-11 04:35] LABS: HGB 9.3 gm/dL (11.4-16.0); MCH 31.4 pg (25.0-35.0); MCHC 32.3 g/dL (31.0-37.0); MCV 97.4 fL (80.0-100.0); Platelet Count 155 k/uL (150-450); RBC 2.97 m/uL (3.80-5.40); WBC 2.2 k/uL (3.8-10.6)
[2018-01-11 04:45] LABS: Anion Gap 7 mmol/L; Blood Urea Nitrogen 26 mg/dL (7-17); Calcium 8.5 mg/dL (8.4-10.2); Carbon Dioxide 31 mmol/L (22-30); Chloride 99 mmol/L (98-107); Glucose 292 mg/dL (74-99); Magnesium 2.2 mg/dL (1.6-2.3); Phosphorus 4.1 mg/dL (2.5-4.5); Potassium 4.3 mmol/L (3.5-5.1); Sodium 137 mmol/L (137-145)
[2018-01-11 05:09] LABS: Hypochromasia (M) Present; Lymphocytes # (M) 0.99 k/uL (1.0-4.8); Monocytes # (M) 0.62 k/uL (0-1.0); Neutrophils # (M) 0.59 k/uL (1.3-7.7); Neutrophils % (M) 27 %; Nucleated Red Blood Cells 0 /100 WBC (0-0); Poikilocytosis (M) Present; Total Cells Counted 100
[2018-01-11] MEDS: LEVOTHYROXINE 125 MCG TAB PO SCH (05:50)
--- NOTE | 2018-01-11 07:05 | XR ---
EXAMINATION TYPE: XR chest 1V DATE OF EXAM: 01/11/2018 HISTORY: tube placement. REFERENCE: Previous study dated 01/10/2018. FINDINGS: The patient is ET tube and NG tube remain in place, unchanged in appearance. There is a lef t basilic PICC line in place also unchanged in appearance. There is patchy opacity present bilaterally. This has worsened in the right upper lobe. The heart rem ains enlarged. It would be difficult to exclude a small left effusion. IMPRESSION: 1. CARDIOMEGALY. 2. WORSENING, PATCHY BILATERAL AIRSPACE DISEASE. PULMONARY EDEMA EITHER CARDIAC OR NONCARDIAC WOULD N EED TO BE CONSIDERED. SUPERIMPOSED PNEUMONIA COULD NOT BE EXCLUDED.
[2018-01-11] MEDS ORDERED: FUROSEMIDE 10 MG/ML 4 ML VIAL IV STA (07:51)
[2018-01-11] MEDS: HEPARIN SODIUM,PORCINE 5,000 UNIT/ML 1 ML VIAL SQ SCH ×3 (08:56→23:50)
[2018-01-11] MEDS: methylPREDNISolone SOD SUCCI 125 MG/2 ML VIAL IV SCH ×3 (08:56→23:51)
[2018-01-11] MEDS: MEROPENEM 2 GM in SODIUM CHLORIDE 0.9% 100 ML IVPB SCH ×3 (08:56→23:50)
[2018-01-11 08:59] LABS: Glucose,Whole Blood 242 mg/dL (75-99)
[2018-01-11] MEDS: GABAPENTIN 300 MG CAP PO SCH ×3 (09:08→21:01)
[2018-01-11] MEDS: PANTOPRAZOLE 40 MG/10 ML VIAL IV SCH (09:18)
[2018-01-11] MEDS: FLUTICASONE 50MCG/SPRAY NASAL 16GM EA NOSTRIL SCH (10:03)
[2018-01-11] MEDS: busPIRone HCl 5 MG TAB PO SCH ×2 (11:55→20:53)
[2018-01-11] MEDS: POTASSIUM CHLORIDE ER 20 MEQ TAB.ER PO SCH ×2 (11:55→21:00)
[2018-01-11] MEDS: NYSTATIN 100,000 UNIT/ML SUSP 500,000 UNIT/5 ML CUP PO SCH ×3 (12:49→21:01)
[2018-01-11] MEDS: CALCIUM CARB-VIT D 500MG-200UN 1 EACH TAB PO SCH (12:52)
[2018-01-11] MEDS: FERROUS SULFATE 325 MG TAB PO SCH (12:53)
[2018-01-11] MEDS: ESCITALOPRAM 10 MG TAB PO SCH (12:53)
[2018-01-11] MEDS: METOPROLOL TARTRATE 50 MG TAB PO SCH ×2 (12:53→20:55)
[2018-01-11] MEDS: LORATADINE 10 MG TAB PO SCH (12:54)
[2018-01-11] MEDS: ASPIRIN 81 MG PO SCH (12:55)
[2018-01-11] MEDS: ATORVASTATIN 20 MG TAB PO SCH (12:55)
[2018-01-11] MEDS: CYANOCOBALAMIN 500 MCG TAB PO SCH (12:55)
[2018-01-11 14:40] LABS: Glucose,Whole Blood 185 mg/dL (75-99)
--- NOTE | 2018-01-11 15:12 | P.PN ---
Subjective Progress Note Date: 01/11/18 Principal diagnosis: Bilateral pneumonia Mrs. Brunner is a 53-year-old white female patient of Dr. Nikki Soto who presented to the hospital on 01/04/2018 at 1936 with complaints of a history fever, chills, increasing shortness of breath. She denied any cough, she denied any chest congestion, or wheezing. Has a known history of bronchial asthma, and her last hospitalization was back in August for acute asthma exacerbation secondary to acute influenza B tracheobronchitis and left lower leg cellulitis. Patient had recovered, and was doing well at home. She sees Dr. Dr. Hollingsworth in the pulmonary office for her history of bronchial asthma, and her most recent PFT showed an FEV1 of 68% of predicted, with a 9% improvement post bronchodilator treatment. This was an improvement from her PFT from 2017, which showed severe obstruction with FEV1 of 1.12 L of 43% of predicted, with improvement to 56% of predicted postbronchodilator treatment. Patient is on Singulair, Symbicort, Ventolin inhaler, in addition to Singulair, Claritin, and Flonase. Patient had never been intubated for asthma exacerbation, she is a lifetime nonsmoker, she is not sure what her triggers are. Prior to this episode, she used her rescue inhaler about once a week. Patient did have shaking chills at home, she was short of breath even walking to the bathroom. In the emergency department her initial temperature was 98.4, however through her stay in the hospital, she had been intermittently febrile with fevers as high as 103.4F. Normally does not wear oxygen at baseline, however today she became hypoxemic, with a pulse ox in the low 80s on room air, pulse ox on 4 L per nasal cannula was 86%. Patient also had some left lower quadrant discomfort , abdominal/pelvis CT was completed and showed abnormal prominence of central endometrium could represent trapped fluid in the endometrial canal, abnormal thickening could not be excluded, and nonemergent pelvic ultrasound was recommended. Multifocal groundglass opacities were noted in the lung bases. Chest x-ray showed cardiomegaly and chronic parenchymal changes without suspicious focal airspace opacity. This was compared the CT chest from 2017, which showed mild diffuse bronchial wall thickening persistent with a diagnosis of bronchitis and chronic asthma, and subtle multifocal patchy groundglass infiltrates and possible tree-in-bud densities in the right lower lobe, and distal small airways impaction with mucoid debris. At the time of the CT chest patient was completely asymptomatic. EKG showed normal sinus rhythm. Patient was started on empiric antibiotics in the form of Rocephin and azithromycin, and was admitted for further management. We were consulted today in regards to acute hypoxemic respiratory failure, stat blood gas was obtained on 10 L high flow, and it showed pO2 of 62, pCO2 41, pH of 7.41, consistent with hypoxemic respiratory failure. This morning's chest x-ray showed worsening interstitial changes, and follow-up chest x-ray this afternoon showed cardiomegaly with diffuse interstitial changes, mild pulmonary vascular congestion, findings could be correlated to atypical pneumonia or interstitial pneumonitis. ProBNP was added to this morning's labs and was within normal limits at 576. Labs show initial white count of 3.3, which subsequently decreased to 2.2 through patient's stay, hemoglobin of 11.4, down to 10.4, no evidence of coagulopathy, electrolytes within normal limits, renal profile is normal, initial plasma lactic acid was 2.2, patient was given a liter bolus in the emergency room, and received a maintenance IV fluid rate at 100 ML per hour. He was given a dose of IV Levaquin in the ER, and was subsequently switched to Rocephin and Zithromax on which she remains. Her T-max in the last 24 hours was 101.1F, patient had another episode of low-grade fever this morning with a temp of 100F. He was treated with IV Tylenol, urine and blood cultures remain negative to date. Her other medical history includes diabetes mellitus type 2, morbid obesity, GERD/reflux, hypertension, hyperlipidemia, hypothyroidism, chronic back pain, neuropathy, iron deficiency anemia, insomnia , anxiety, depression. Of note patient states she was recently seen by Dr. Lucero in consultation in regards to low white counts and anemia, and she is supposed to follow-up with him in the fall in regards to the results of testing. On today's evaluation patient is calm and comfortable, she is in no acute distress, in the recliner, on 10 L per high flow nasal cannula, his any cough, denies any chest congestion, denies any phlegm production denies any hemoptysis, denies any chest wall tenderness. We're seeing the patient in regards to acute hypoxemic respiratory failure, and the cause of which is under investigation. On 01/07/2018 she was seen again in follow-up on medical surgical floor. She remains on high flow nasal cannula, currently at 10 L, and the pulse ox remains marginal from 88-93%. Patient still remains very dyspneic, and limited in terms of activity tolerance. She did have intermittent low-grade fevers today, with T-max of 100.7F. CT chest results and films were reviewed by Dr. Wylie today, and showed extensive bilateral pulmonary airspace infiltrates assisted with acute pneumonia, and increased paratracheal adenopathy. Lung sounds are diminished, but no rhonchi, rales or wheezes noted. Patient denies any phlegm production, denies any chest congestion, there is no wheezing. Patient's IV antibiotics have been switched to Levaquin, and the patient received 1 dose. Urine and blood cultures remain negative, Legionella urine antigen and mycoplasma IgM ordered and are pending at this time. Patient did receive a few doses of IV diuretics, with no improvement in oxygenation. Hence we will stop those. There is a concern about a fungal infection versus ALLERGIC bronchopulmonary aspergillosis. Antibiotic coverage will be stepped up and switched over to meropenem and vancomycin. We'll request consultation from hematology and infectious disease service. On 01/08/2018 patient seen in follow-up. Breathing easier today, although patient still becomes quite dyspneic with any exertion, even walking to the commode. Still requiring 10 L per high flow nasal cannula, and her pulse ox remains marginal at 90-92%. On sounds are diminished, with some crackles at the left lower base. No rhonchi, no wheezing, no cough, no phlegm production. No hemoptysis, no chest wall tenderness. Her last fever was yesterday at 1457, with a temp of 100.7F. Today we switch the antibiotic coverage to meropenem and vancomycin, she was seen by ID service, mycoplasma IgM and Legionella antigen were not detected. Cultures remain negative. Repeat chest x-ray showed cardiomegaly with multifocal areas of edema and/or infiltrates affecting bilateral upper and lower lungs, no significant change from 2 days prior. On 01/09/2018 patient seen in follow-up on medical surgical floor. Still quite dyspneic with any exertion, she remains on 10 L per high flow nasal cannula, and her oxygen saturation remains marginal at 90%, no febrile episodes for almost 48 hours. Yesterday's chest x-ray did not show much improvement in terms of multifocal areas of infiltrates in bilateral upper and lower lungs. Cultures remain negative thus far, she is still not able to bring up any sputum , sounds are diminished bilaterally, with bibasilar crackles, no wheezes or rhonchi appreciated. She remains on meropenem. ID service is now following, hematology is planning a bone marrow biopsy. Today's chest x-ray is similar to the prior exam, and looking slightly worse in terms of diffuse pulmonary infiltrates. We will schedule the patient for bronchoscopy with BAL by Dr. Wylie tomorrow, and this will be done in the OR, patient will be intubated for the procedure. This was discussed with the patient and her niece, she was anxious regarding the procedure, she had a lot of questions, and concerns about potential poor outcome including procedure. Questions were answered, and there is a risk of mortality, and there is a chance of patient requiring a mechanical ventilation after the procedure, however proceeding with bronchoscopy would allow to make a diagnosis, obtain sputum samples, and direct antibiotic therapy. The patient and the niece did agree to go ahead with the procedure, patient will be nothing by mouth after midnight and bone marrow biopsy will be done by Dr. Allen following the bronchoscopy. On 01/10/2018 patient seen in follow-up on medical surgical floor, prior to her scheduled bronchoscopy. Remains on 10 L per high flow nasal cannula, she is in no acute distress, but becomes very dyspneic with any exertion. Was able to bring up some sputum today, afebrile. Cultures remain negative. Remains on meropenem. He service is following, patient is awaiting her bronchoscopy with BAL by Dr. Wylie today, which will be followed by bone marrow biopsy by Dr. Allen. Patient is to be intubated for the procedure, and there is a likelihood she would require mechanical ventilation after the procedure, and a bed will be obtained in the ICU. Patient was seen this morning on 01/11/2018, remains on mechanical ventilation, on 50% FiO2, and she was still on propofol. Patient was examined, chest x-ray was reviewed continues to show nodular infiltrates bilaterally, but slightly improved compared to the chest x-ray done post bronchoscopy yesterday. Patient was diuresed overnight, and I went ahead, discontinued the propofol, awaken the patient, and gave the patient a short weaning trial on pressure support of 8 and CPAP. She was noted to do quite well on the mode of weaning, hence I proceeded to extubating the patient to a BiPAP with IPAP of 10 and EPAP of 5, FiO2 at 50%. Patient did quite well on that mode of noninvasive positive pressure ventilation, and she looked quite comfortable. Hence I will switch her to a high flow nasal cannula if she continues to tolerate that well. All labs were reviewed, WBC count is 2.2 hemoglobin is 9.3 platelets remained 1 55, 000, electrolytes and renal profile are normal. Chest x-ray as noted earlier. Objective - Vital Signs Vital signs: Vital Signs Temp 98.4 F 01/11/18 12:00 Pulse 69 01/11/18 15:00 Resp 16 01/11/18 15:00 BP 128/73 01/11/18 13:00 Pulse Ox 95 01/11/18 15:00 Intake & Output 01/10/18 01/11/18 01/11/18 18:59 06:59 18:59 Intake Total 777.442 532.483 731 Output Total 1900 1920 1418 Balance -1122.558 -1387.517 -687 Weight 142.1 kg 142.1 kg Intake: IV 500 320 281 0.9 for pressure bag 21 Meropenem 2 gm In Sodium 100 100 Chloride 0.9% 100 ml @ 200 mls/hr IVPB Q8HR [facility] Rx#:[id number] Sodium Chloride 0.9% 1, 220 160 000 ml @ 20 mls/hr IV . Q24H [facility] Rx#:[id number] Intake, IV Titration 277.442 212.483 Amount Propofol 1,000 mg In 177.442 192.483 Empty Bag 1 bag @ Titrate IV .Q0M [facility] Rx#: [id number] Sodium Chloride 0.9% 1, 100 20 000 ml @ 20 mls/hr IV . Q24H [facility] Rx#:[id number] Oral 450 Output: Urine 1900 1920 1418 Other: Voiding Method Indwelling Catheter Indwelling Catheter Indwelling Catheter ABP, PAP, CO, CI - Last Documented Arterial Blood Pressure 146/82 - Exam Physical Exam: Revealed a 53-year-old female, obese, on mechanical ventilation. Endotracheal tube is intact. Head: Atraumatic, normocephalic, orogastric tube and endotracheal tube are intact. HEENT: Short obese neck. [Neck is supple.] [No neck masses.] [No thyromegaly.] [No JVD.] Chest: [Crackles at the bases, no rhonchi, no wheezes, symmetrical chest expansion, no chest wall tenderness..] Cardiac Exam: [Distant S1 and S2, no S3 gallop, no murmur. Abdomen: [Obese, Soft, nontender, no megaly, no rebound, no guarding, normal bowel sounds.] Extremities: [No clubbing, trace of bipedal edema, no cyanosis.] Neurological Exam: [No focal neurologic deficit.] Psychiatric: Normal mood affect and mental status exam. Lymphatics: No lymphadenopathy. - Labs CBC & Chem 7: 01/11/18 04:15 01/11/18 04:15 Labs: Abnormal Lab Results - Last 24 Hours (Table) 01/10/18 01/11/18 01/11/18 Range/Units 20:42 02:28 04:15 WBC 2.2 L (3.8-10.6) k/uL RBC 2.97 L (3.80-5.40) m/uL Hgb 9.3 L (11.4-16.0) gm/dL Hct 29.0 L (34.0-46.0) % Neutrophils # (Manual) 0.59 L (1.3-7.7) k/uL Lymphocytes # (Manual) 0.99 L (1.0-4.8) k/uL Carbon Dioxide (22-30) mmol/L BUN (7-17) mg/dL Glucose (74-99) mg/dL POC Glucose (mg/dL) 258 H 288 H (75-99) mg/dL 01/11/18 01/11/18 01/11/18 Range/Units 04:15 08:58 14:36 WBC (3.8-10.6) k/uL RBC (3.80-5.40) m/uL Hgb (11.4-16.0) gm/dL Hct (34.0-46.0) % Neutrophils # (Manual) (1.3-7.7) k/uL Lymphocytes # (Manual) (1.0-4.8) k/uL Carbon Dioxide 31 H (22-30) mmol/L BUN 26 H (7-17) mg/dL Glucose 292 H (74-99) mg/dL POC Glucose (mg/dL) 242 H 185 H (75-99) mg/dL Microbiology - Last 24 Hours (Table) 01/10/18 11:38 Gram Stain - Preliminary Bronchial Washings - Left Bronchial Washings Culture - Preliminary 01/10/18 08:00 Gram Stain - Preliminary Sputum Sputum Culture - Preliminary Shae albicans 01/10/18 11:38 Acid Fast Bacilli Culture - Preliminary Lung - Left Upper Lobe 01/10/18 11:38 Fungal Culture - Preliminary Lung - Left Upper Lobe 01/04/18 20:00 Blood Culture - Final Blood No Growth after 144 hours 01/06/18 18:42 Blood Culture - Preliminary Blood No Growth after 96 hours 01/06/18 18:20 Blood Culture - Preliminary Blood No Growth after 96 hours Assessment and Plan Assessment: #1. Acute hypoxemic respiratory failure related to acute extensive bilateral infiltrates, consistent with acute pneumonia, community acquired, and there is a concern for fungal infection in this immunocompromised host #2. Intermittent fever, chills, shortness of breath related to the above #3. Pancytopenia, patient is awaiting to undergo bone marrow biopsy #4. Mild lactic acidosis present on admission, with lactic acid level of 2.2, and the patient was fluid resuscitated with 1 L of crystalloids, and received maintenance IV fluids at a rate of 100 ML per hour, subsequent lactic acid was down to 0.8 #5. Abdominal pain, CT of abdomen and pelvis showed abnormal prominence of the central endometrium, or could possibly represent trapped fluid in the endometrial canal and abnormal endometrial thickening, be followed up with nonemergent pelvic ultrasound #6. Chronic bronchial asthma, and her latest PFT showed FEV1 of 68% of predicted, with post bronchodilator response up to 73% of predicted, and patient was diagnosed with adult onset genetic asthma. This seems to be stable right now #7. Hypertension, hyperlipidemia #8. Diabetes mellitus type 2 #9. Morbid obesity with a BMI of 54.8 kg/m #10. Chronic back pain #11. GERD/reflux on omeprazole #12. Hypothyroidism #13. Anxiety, depression #14. Lifetime nonsmoker Recommendation: Continue present supportive care measures, patient was given a trial of weaning using pressure support and CPAP, did quite well, proceeded to extubate the patient. She was initially placed on BiPAP, later placed on high flow nasal cannula at 10 L., in the meantime we'll continue bronchodilators, antibiotics, await final report from her bronchial lavage, and await final report from her bone marrow studies. Patient will be kept in the intensive care unit today, may transfer to a regular medical floor tomorrow depending on her overall condition. Critical care time is 35 minutes. Time with Patient: Greater than 30
[2018-01-11] MEDS: IPRATROPIUM-ALBUTEROL 3 ML NEB INHALATION PRN ×2 (15:46→20:43)
--- NOTE | 2018-01-11 17:14 | P.PN ---
Subjective Patient was admitted with acute hypoxic respiratory failure and bilateral infiltrates consistent with pneumonia patient is being treated for healthcare associated pneumonia patient did not have any significant improvement because of which patient underwent bronchoscopy which did not show any significant past. There is a concern about hematologic malignancy because of which patient the had a biopsy of the bone marrow. Patient has significant bladder blast cells in the peripheral smear. Because of which we believe patient is immunosuppressive patient may have Pneumocystis carinii pneumonia or a fungal pneumonia. Patient was intubated SA they're able to extubate the patient today patient is on aspirin cannula oxygen. Patient is presently on meropenem Is presently on 8 L of oxygen Constitutional: Denied any fatigue denied any fever. Cardio vascular: denied any chest pain, palpitations Gastrointestinal denied any nausea vomiting Pulmonary: Denied any shortness of breath cough Neurologic denied any new focal deficits Objective - Vital Signs Vital signs: Vital Signs Temp 98.4 F 01/11/18 16:00 Pulse 62 01/11/18 16:00 Resp 19 01/11/18 16:00 BP 122/62 01/11/18 16:00 Pulse Ox 96 01/11/18 16:00 Intake & Output 01/10/18 01/11/18 01/11/18 18:59 06:59 18:59 Intake Total 777.442 532.483 837 Output Total 1900 1920 1458 Balance -1122.558 -1387.517 -621 Weight 142.1 kg 142.1 kg Intake: IV 500 320 387 0.9 for pressure bag 27 Meropenem 2 gm In Sodium 100 200 Chloride 0.9% 100 ml @ 200 mls/hr IVPB Q8HR [facility] Rx#:[id number] Sodium Chloride 0.9% 1, 220 160 000 ml @ 20 mls/hr IV . Q24H [facility] Rx#:[id number] Intake, IV Titration 277.442 212.483 Amount Propofol 1,000 mg In 177.442 192.483 Empty Bag 1 bag @ Titrate IV .Q0M [facility] Rx#: [id number] Sodium Chloride 0.9% 1, 100 20 000 ml @ 20 mls/hr IV . Q24H [facility] Rx#:[id number] Oral 450 Output: Urine 1900 1920 1458 Other: Voiding Method Indwelling Catheter Indwelling Catheter Indwelling Catheter ABP, PAP, CO, CI - Last Documented Arterial Blood Pressure 144/78 - Exam PHYSICAL EXAMINATION: GENERAL: The patient is alert and oriented x3, not in any acute distress. Well developed, well nourished. HEENT: Pupils are round and equally reacting to light. EOMI. No scleral icterus. No conjunctival pallor. Normocephalic, atraumatic. No pharyngeal erythema. No thyromegaly. CARDIOVASCULAR: S1 and S2 present. No murmurs, rubs, or gallops. PULMONARY: Chest is clear to auscultation, no wheezing or crackles. ABDOMEN: Soft, nontender, nondistended, normoactive bowel sounds. No palpable organomegaly. MUSCULOSKELETAL: No joint swelling or deformity. EXTREMITIES: No cyanosis, clubbing, or pedal edema. NEUROLOGICAL: Gross neurological examination did not reveal any focal deficits. SKIN: No rashes. - Labs CBC & Chem 7: 01/11/18 04:15 01/11/18 04:15 Labs: Abnormal Lab Results - Last 24 Hours (Table) 01/10/18 01/11/18 01/11/18 Range/Units 20:42 02:28 04:15 WBC 2.2 L (3.8-10.6) k/uL RBC 2.97 L (3.80-5.40) m/uL Hgb 9.3 L (11.4-16.0) gm/dL Hct 29.0 L (34.0-46.0) % Neutrophils # (Manual) 0.59 L (1.3-7.7) k/uL Lymphocytes # (Manual) 0.99 L (1.0-4.8) k/uL Carbon Dioxide (22-30) mmol/L BUN (7-17) mg/dL Glucose (74-99) mg/dL POC Glucose (mg/dL) 258 H 288 H (75-99) mg/dL 01/11/18 01/11/18 01/11/18 Range/Units 04:15 08:58 14:36 WBC (3.8-10.6) k/uL RBC (3.80-5.40) m/uL Hgb (11.4-16.0) gm/dL Hct (34.0-46.0) % Neutrophils # (Manual) (1.3-7.7) k/uL Lymphocytes # (Manual) (1.0-4.8) k/uL Carbon Dioxide 31 H (22-30) mmol/L BUN 26 H (7-17) mg/dL Glucose 292 H (74-99) mg/dL POC Glucose (mg/dL) 242 H 185 H (75-99) mg/dL Microbiology - Last 24 Hours (Table) 01/10/18 11:38 Gram Stain - Preliminary Bronchial Washings - Left Bronchial Washings Culture - Preliminary 01/10/18 08:00 Gram Stain - Preliminary Sputum Sputum Culture - Preliminary Shae albicans 01/10/18 11:38 Acid Fast Bacilli Culture - Preliminary Lung - Left Upper Lobe 01/10/18 11:38 Fungal Culture - Preliminary Lung - Left Upper Lobe 01/04/18 20:00 Blood Culture - Final Blood No Growth after 144 hours 01/06/18 18:42 Blood Culture - Preliminary Blood No Growth after 96 hours 01/06/18 18:20 Blood Culture - Preliminary Blood No Growth after 96 hours Assessment and Plan Plan: -Acute hypoxic respiratory failure: With bilateral infiltrates possible etiologies being atypical pneumonia fungal pneumonia. Patient is presently on meropenem aspirin infectious disease -Possibility of acute leukemia status post bone marrow biopsy patient has pancytopenia and blasts cells -Sepsis on admission with lactic is doses which improved -Chronic bronchial asthma: Continue with systemic steroids inhalational treatments -Hypertension -Hyperlipidemia -Type 2 diabetes mellitus uncontrolled blood sugars due to systemic steroids, dose of Levemir is being increased -Morbid obesity -Chronic low back pain -Gastroesophageal reflux disease -Hypothyroidism -Anxiety and depression For above-mentioned other chronic medical problems patient will be continued on appropriate home medications
[2018-01-11 17:25] LABS: Glucose,Whole Blood 188 mg/dL (75-99)
[2018-01-11] MEDS: FUROSEMIDE 10 MG/ML 2 ML VIAL IV SCH (20:54)
[2018-01-11] MEDS: MONTELUKAST 10 MG TAB PO SCH (20:56)
[2018-01-11] MEDS ORDERED: INSULIN DETEMIR 100 UNIT/ML 10 ML VIAL SQ SCH (21:00)
[2018-01-11] MEDS: ZOLPIDEM 10 MG TAB PO SCH (21:00)
[2018-01-11 23:58] LABS: Glucose,Whole Blood 257 mg/dL (75-99)
[2018-01-12] MEDS ORDERED: INSULIN REGULAR 100 UNIT in SODIUM CHLORIDE 0.9% 100 ML IV SCH (00:15)
[2018-01-12] MEDS ORDERED: INSULIN REGULAR BOLUS (FROM DRIP BAG) IV PRN (00:15)
[2018-01-12] MEDS: INSULIN ASPART 100 UNIT/ML 1 ML 10 ML VIAL SQ SCH ×5 (00:38→20:18)
[2018-01-12 01:35] LABS: Glucose,Whole Blood 188 mg/dL (75-99)
[2018-01-12 02:03] LABS: Glucose,Whole Blood 177 mg/dL (75-99)
[2018-01-12 03:03] LABS: Glucose,Whole Blood 165 mg/dL (75-99)
[2018-01-12 04:08] LABS: Glucose,Whole Blood 156 mg/dL (75-99)
[2018-01-12 04:50] LABS: HCT 29.8 % (34.0-46.0); HGB 9.8 gm/dL (11.4-16.0); MCH 31.4 pg (25.0-35.0); MCHC 32.9 g/dL (31.0-37.0); MCV 95.6 fL (80.0-100.0); Mean Platelet Volume 8.4; Platelet Count 174 k/uL (150-450); RBC 3.12 m/uL (3.80-5.40); RDW 14.6 % (11.5-15.5)
[2018-01-12 04:58] LABS: Glucose,Whole Blood 179 mg/dL (75-99)
[2018-01-12 05:00] LABS: Anion Gap 6 mmol/L; Blood Urea Nitrogen 28 mg/dL (7-17); Calcium 8.6 mg/dL (8.4-10.2); Carbon Dioxide 34 mmol/L (22-30); Chloride 99 mmol/L (98-107); Glucose 168 mg/dL (74-99); Magnesium 2.4 mg/dL (1.6-2.3); Phosphorus 3.5 mg/dL (2.5-4.5); Potassium 4.3 mmol/L (3.5-5.1); Sodium 139 mmol/L (137-145)
[2018-01-12 05:55] LABS: Band Neutrophils % 1 %; Lymphocytes # (M) 2.73 k/uL (1.0-4.8); Metamyelocytes # (M) 0.07 k/uL (0); Metamyelocytes % 1 %; Monocytes # (M) 3.15 k/uL (0-1.0); Neutrophils % (M) 14 %; Nucleated Red Blood Cells 0 /100 WBC (0-0); Total Cells Counted 100
[2018-01-12] MEDS: LEVOTHYROXINE 125 MCG TAB PO SCH (06:00)
[2018-01-12] MEDS: SODIUM CHLORIDE 0.9% 1,000 ML IV SCH ×2 (06:01→21:20)
[2018-01-12 06:11] LABS: Glucose,Whole Blood 155 mg/dL (75-99)
[2018-01-12 06:46] LABS: Glucose,Whole Blood 154 mg/dL (75-99)
--- NOTE | 2018-01-12 07:09 | XR ---
EXAMINATION TYPE: XR chest 1V DATE OF EXAM: 01/12/2018 HISTORY: tube placement. REFERENCE: Previous study dated 01/11/2018. FINDINGS: The patient has been extubated. The patient's NG tube is been removed. A left basilic PICC line is in place. Its tip is in the superior vena cava. There continues to be bilateral areas of airspace disease. Overall aeration has improved. The heart i s enlarged. Pleural spaces are clear. IMPRESSION: IMPROVED AERATION, BOTH LUNGS.
[2018-01-12] MEDS: MEROPENEM 2 GM in SODIUM CHLORIDE 0.9% 100 ML IVPB SCH ×3 (08:00→23:10)
[2018-01-12] MEDS: methylPREDNISolone SOD SUCCI 125 MG/2 ML VIAL IV SCH ×3 (08:01→23:10)
[2018-01-12] MEDS: busPIRone HCl 5 MG TAB PO SCH ×2 (08:01→20:08)
[2018-01-12] MEDS: PANTOPRAZOLE 40 MG/10 ML VIAL IV SCH (08:01)
[2018-01-12] MEDS: IPRATROPIUM-ALBUTEROL 3 ML NEB INHALATION PRN ×3 (08:01→20:04)
[2018-01-12] MEDS: POTASSIUM CHLORIDE ER 20 MEQ TAB.ER PO SCH ×2 (08:01→20:09)
[2018-01-12] MEDS: FLUTICASONE 50MCG/SPRAY NASAL 16GM EA NOSTRIL SCH (08:01)
[2018-01-12] MEDS: HEPARIN SODIUM,PORCINE 5,000 UNIT/ML 1 ML VIAL SQ SCH ×3 (08:01→23:09)
[2018-01-12] MEDS: GABAPENTIN 300 MG CAP PO SCH ×3 (08:01→21:21)
[2018-01-12] MEDS: FUROSEMIDE 10 MG/ML 2 ML VIAL IV SCH ×2 (08:01→18:26)
[2018-01-12] MEDS: CALCIUM CARB-VIT D 500MG-200UN 1 EACH TAB PO SCH (08:01)
[2018-01-12] MEDS: LORATADINE 10 MG TAB PO SCH (08:01)
[2018-01-12] MEDS: ESCITALOPRAM 10 MG TAB PO SCH (08:02)
[2018-01-12] MEDS: NYSTATIN 100,000 UNIT/ML SUSP 500,000 UNIT/5 ML CUP PO SCH ×4 (08:02→21:21)
[2018-01-12] MEDS: ATORVASTATIN 20 MG TAB PO SCH (08:02)
[2018-01-12] MEDS: FERROUS SULFATE 325 MG TAB PO SCH (08:02)
[2018-01-12] MEDS: ASPIRIN 81 MG PO SCH (08:02)
[2018-01-12 08:30] LABS: Glucose,Whole Blood 169 mg/dL (75-99)
[2018-01-12] MEDS: METOPROLOL TARTRATE 50 MG TAB PO SCH ×2 (09:11→21:50)
[2018-01-12 09:13] LABS: Glucose,Whole Blood 207 mg/dL (75-99)
[2018-01-12 10:03] LABS: Glucose,Whole Blood 219 mg/dL (75-99)
[2018-01-12 11:06] LABS: Glucose,Whole Blood 147 mg/dL (75-99)
[2018-01-12] MEDS: CYANOCOBALAMIN 500 MCG TAB PO SCH (11:58)
[2018-01-12 12:16] LABS: Glucose,Whole Blood 131 mg/dL (75-99)
[2018-01-12 12:48] LABS: Glucose,Whole Blood 145 mg/dL (75-99)
--- NOTE | 2018-01-12 13:09 | P.PN ---
Subjective Progress Note Date: 01/12/18 Principal diagnosis: Bilateral pneumonia Mrs. Brunner is a 53-year-old white female patient of Dr. Nikki Soto who presented to the hospital on 01/04/2018 at 1936 with complaints of a history fever, chills, increasing shortness of breath. She denied any cough, she denied any chest congestion, or wheezing. Has a known history of bronchial asthma, and her last hospitalization was back in August for acute asthma exacerbation secondary to acute influenza B tracheobronchitis and left lower leg cellulitis. Patient had recovered, and was doing well at home. She sees Dr. Dr. Hollingsworth in the pulmonary office for her history of bronchial asthma, and her most recent PFT showed an FEV1 of 68% of predicted, with a 9% improvement post bronchodilator treatment. This was an improvement from her PFT from 2017, which showed severe obstruction with FEV1 of 1.12 L of 43% of predicted, with improvement to 56% of predicted postbronchodilator treatment. Patient is on Singulair, Symbicort, Ventolin inhaler, in addition to Singulair, Claritin, and Flonase. Patient had never been intubated for asthma exacerbation, she is a lifetime nonsmoker, she is not sure what her triggers are. Prior to this episode, she used her rescue inhaler about once a week. Patient did have shaking chills at home, she was short of breath even walking to the bathroom. In the emergency department her initial temperature was 98.4, however through her stay in the hospital, she had been intermittently febrile with fevers as high as 103.4F. Normally does not wear oxygen at baseline, however today she became hypoxemic, with a pulse ox in the low 80s on room air, pulse ox on 4 L per nasal cannula was 86%. Patient also had some left lower quadrant discomfort , abdominal/pelvis CT was completed and showed abnormal prominence of central endometrium could represent trapped fluid in the endometrial canal, abnormal thickening could not be excluded, and nonemergent pelvic ultrasound was recommended. Multifocal groundglass opacities were noted in the lung bases. Chest x-ray showed cardiomegaly and chronic parenchymal changes without suspicious focal airspace opacity. This was compared the CT chest from 2017, which showed mild diffuse bronchial wall thickening persistent with a diagnosis of bronchitis and chronic asthma, and subtle multifocal patchy groundglass infiltrates and possible tree-in-bud densities in the right lower lobe, and distal small airways impaction with mucoid debris. At the time of the CT chest patient was completely asymptomatic. EKG showed normal sinus rhythm. Patient was started on empiric antibiotics in the form of Rocephin and azithromycin, and was admitted for further management. We were consulted today in regards to acute hypoxemic respiratory failure, stat blood gas was obtained on 10 L high flow, and it showed pO2 of 62, pCO2 41, pH of 7.41, consistent with hypoxemic respiratory failure. This morning's chest x-ray showed worsening interstitial changes, and follow-up chest x-ray this afternoon showed cardiomegaly with diffuse interstitial changes, mild pulmonary vascular congestion, findings could be correlated to atypical pneumonia or interstitial pneumonitis. ProBNP was added to this morning's labs and was within normal limits at 576. Labs show initial white count of 3.3, which subsequently decreased to 2.2 through patient's stay, hemoglobin of 11.4, down to 10.4, no evidence of coagulopathy, electrolytes within normal limits, renal profile is normal, initial plasma lactic acid was 2.2, patient was given a liter bolus in the emergency room, and received a maintenance IV fluid rate at 100 ML per hour. He was given a dose of IV Levaquin in the ER, and was subsequently switched to Rocephin and Zithromax on which she remains. Her T-max in the last 24 hours was 101.1F, patient had another episode of low-grade fever this morning with a temp of 100F. He was treated with IV Tylenol, urine and blood cultures remain negative to date. Her other medical history includes diabetes mellitus type 2, morbid obesity, GERD/reflux, hypertension, hyperlipidemia, hypothyroidism, chronic back pain, neuropathy, iron deficiency anemia, insomnia , anxiety, depression. Of note patient states she was recently seen by Dr. Lucero in consultation in regards to low white counts and anemia, and she is supposed to follow-up with him in the fall in regards to the results of testing. On today's evaluation patient is calm and comfortable, she is in no acute distress, in the recliner, on 10 L per high flow nasal cannula, his any cough, denies any chest congestion, denies any phlegm production denies any hemoptysis, denies any chest wall tenderness. We're seeing the patient in regards to acute hypoxemic respiratory failure, and the cause of which is under investigation. On 01/07/2018 she was seen again in follow-up on medical surgical floor. She remains on high flow nasal cannula, currently at 10 L, and the pulse ox remains marginal from 88-93%. Patient still remains very dyspneic, and limited in terms of activity tolerance. She did have intermittent low-grade fevers today, with T-max of 100.7F. CT chest results and films were reviewed by Dr. Wylie today, and showed extensive bilateral pulmonary airspace infiltrates assisted with acute pneumonia, and increased paratracheal adenopathy. Lung sounds are diminished, but no rhonchi, rales or wheezes noted. Patient denies any phlegm production, denies any chest congestion, there is no wheezing. Patient's IV antibiotics have been switched to Levaquin, and the patient received 1 dose. Urine and blood cultures remain negative, Legionella urine antigen and mycoplasma IgM ordered and are pending at this time. Patient did receive a few doses of IV diuretics, with no improvement in oxygenation. Hence we will stop those. There is a concern about a fungal infection versus ALLERGIC bronchopulmonary aspergillosis. Antibiotic coverage will be stepped up and switched over to meropenem and vancomycin. We'll request consultation from hematology and infectious disease service. On 01/08/2018 patient seen in follow-up. Breathing easier today, although patient still becomes quite dyspneic with any exertion, even walking to the commode. Still requiring 10 L per high flow nasal cannula, and her pulse ox remains marginal at 90-92%. On sounds are diminished, with some crackles at the left lower base. No rhonchi, no wheezing, no cough, no phlegm production. No hemoptysis, no chest wall tenderness. Her last fever was yesterday at 1457, with a temp of 100.7F. Today we switch the antibiotic coverage to meropenem and vancomycin, she was seen by ID service, mycoplasma IgM and Legionella antigen were not detected. Cultures remain negative. Repeat chest x-ray showed cardiomegaly with multifocal areas of edema and/or infiltrates affecting bilateral upper and lower lungs, no significant change from 2 days prior. On 01/09/2018 patient seen in follow-up on medical surgical floor. Still quite dyspneic with any exertion, she remains on 10 L per high flow nasal cannula, and her oxygen saturation remains marginal at 90%, no febrile episodes for almost 48 hours. Yesterday's chest x-ray did not show much improvement in terms of multifocal areas of infiltrates in bilateral upper and lower lungs. Cultures remain negative thus far, she is still not able to bring up any sputum , sounds are diminished bilaterally, with bibasilar crackles, no wheezes or rhonchi appreciated. She remains on meropenem. ID service is now following, hematology is planning a bone marrow biopsy. Today's chest x-ray is similar to the prior exam, and looking slightly worse in terms of diffuse pulmonary infiltrates. We will schedule the patient for bronchoscopy with BAL by Dr. Wylie tomorrow, and this will be done in the OR, patient will be intubated for the procedure. This was discussed with the patient and her niece, she was anxious regarding the procedure, she had a lot of questions, and concerns about potential poor outcome including procedure. Questions were answered, and there is a risk of mortality, and there is a chance of patient requiring a mechanical ventilation after the procedure, however proceeding with bronchoscopy would allow to make a diagnosis, obtain sputum samples, and direct antibiotic therapy. The patient and the niece did agree to go ahead with the procedure, patient will be nothing by mouth after midnight and bone marrow biopsy will be done by Dr. Allen following the bronchoscopy. On 01/10/2018 patient seen in follow-up on medical surgical floor, prior to her scheduled bronchoscopy. Remains on 10 L per high flow nasal cannula, she is in no acute distress, but becomes very dyspneic with any exertion. Was able to bring up some sputum today, afebrile. Cultures remain negative. Remains on meropenem. He service is following, patient is awaiting her bronchoscopy with BAL by Dr. Wylie today, which will be followed by bone marrow biopsy by Dr. Allen. Patient is to be intubated for the procedure, and there is a likelihood she would require mechanical ventilation after the procedure, and a bed will be obtained in the ICU. Patient was seen this morning on 01/11/2018, remains on mechanical ventilation, on 50% FiO2, and she was still on propofol. Patient was examined, chest x-ray was reviewed continues to show nodular infiltrates bilaterally, but slightly improved compared to the chest x-ray done post bronchoscopy yesterday. Patient was diuresed overnight, and I went ahead, discontinued the propofol, awaken the patient, and gave the patient a short weaning trial on pressure support of 8 and CPAP. She was noted to do quite well on the mode of weaning, hence I proceeded to extubating the patient to a BiPAP with IPAP of 10 and EPAP of 5, FiO2 at 50%. Patient did quite well on that mode of noninvasive positive pressure ventilation, and she looked quite comfortable. Hence I will switch her to a high flow nasal cannula if she continues to tolerate that well. All labs were reviewed, WBC count is 2.2 hemoglobin is 9.3 platelets remained 1 55, 000, electrolytes and renal profile are normal. Chest x-ray as noted earlier. Reevaluated today on 01/12/2018, remains in the intensive care unit, extubated yesterday, and tolerated the extubation well over the last 24 hours. Patient is actually now on 8 L high flow nasal cannula, and her O2 saturation is 95%. Chest x-ray showed slight improvement, remains on broad-spectrum antibiotics, diuretics, and so far the bronchial washings preliminary report is nondiagnostic. Ordered angiotensin-converting enzyme level and I ordered c anca , I have also ordered hypersensitivity panel on this patient. I have a feeling that the patient may eventually require VATS lung biopsy. This is assuming the patient does not improve with antibiotics and steroids, and if she continues to have nodular infiltrates bilaterally. Clinically however the patient is showing some improvement at least over the last couple of days. And today she seems to be doing much and much better. But her chest x-ray is still concerning , and her CT of the chest is also concerning to be. Bone marrow results are still pending. Her WBC count is up to 7 today hemoglobin is 9.8 and platelets are 174,000. Patient remains on antibiotics and steroids. Objective - Vital Signs Vital signs: Vital Signs Temp 98.3 F 01/12/18 12:00 Pulse 56 L 01/12/18 12:08 Resp 21 01/12/18 12:00 BP 145/75 01/12/18 10:00 Pulse Ox 97 01/12/18 12:00 Intake & Output 01/11/18 01/12/18 01/12/18 18:59 06:59 18:59 Intake Total 890.517 322.011 473.044 Output Total 1560 1208 740 Balance -669.483 -885.989 -266.956 Weight 142.1 kg 137.7 kg Intake: IV 433 299 195 0.9 for pressure bag 33 39 15 Meropenem 2 gm In Sodium 200 100 Chloride 0.9% 100 ml @ 200 mls/hr IVPB Q8HR [facility] Rx#:[id number] Sodium Chloride 0.9% 1, 200 260 80 000 ml @ 20 mls/hr IV . Q24H [facility] Rx#:[id number] Intake, IV Titration 7.517 23.011 28.044 Amount Insulin Regular 100 unit 23.011 28.044 In Sodium Chloride 0.9% 100 ml @ Per Protocol IV .Q0M [facility] Rx#:[id number] Propofol 1,000 mg In 7.517 Empty Bag 1 bag @ Titrate IV .Q0M [facility] Rx#: [id number] Oral 450 250 Output: Urine 1560 1208 740 Other: Voiding Method Indwelling Catheter Indwelling Catheter Indwelling Catheter # Bowel Movements 1 ABP, PAP, CO, CI - Last Documented Arterial Blood Pressure 138/73 - Exam Physical Exam: Revealed a 53-year-old female, obese, off mechanical ventilation , On 8 L high flow nasal cannula. Head: Atraumatic, normocephalic, HEENT: Short obese neck. [Neck is supple.] [No neck masses.] [No thyromegaly.] [No JVD.] Chest: [Crackles at the bases, no rhonchi, no wheezes, symmetrical chest expansion, no chest wall tenderness..] Cardiac Exam: [Distant S1 and S2, no S3 gallop, no murmur. Abdomen: [Obese, Soft, nontender, no megaly, no rebound, no guarding, normal bowel sounds.] Extremities: [No clubbing, trace of bipedal edema, no cyanosis.] Neurological Exam: [No focal neurologic deficit.] Psychiatric: Normal mood affect and mental status exam. Lymphatics: No lymphadenopathy. - Labs CBC & Chem 7: 01/12/18 04:39 01/12/18 04:39 Labs: Abnormal Lab Results - Last 24 Hours (Table) 01/11/18 01/11/18 01/11/18 Range/Units 14:36 17:23 23:55 RBC (3.80-5.40) m/uL Hgb (11.4-16.0) gm/dL Hct (34.0-46.0) % Neutrophils # (Manual) (1.3-7.7) k/uL Monocytes # (Manual) (0-1.0) k/uL Metamyelocytes # (Man) (0) k/uL Carbon Dioxide (22-30) mmol/L BUN (7-17) mg/dL Glucose (74-99) mg/dL POC Glucose (mg/dL) 185 H 188 H 257 H (75-99) mg/dL Magnesium (1.6-2.3) mg/dL 01/12/1818 01/12/18 Range/Units 01:32 01:59 02:55 RBC (3.80-5.40) m/uL Hgb (11.4-16.0) gm/dL Hct (34.0-46.0) % Neutrophils # (Manual) (1.3-7.7) k/uL Monocytes # (Manual) (0-1.0) k/uL Metamyelocytes # (Man) (0) k/uL Carbon Dioxide (22-30) mmol/L BUN (7-17) mg/dL Glucose (74-99) mg/dL POC Glucose (mg/dL) 188 H 177 H 165 H (75-99) mg/dL Magnesium (1.6-2.3) mg/dL 01/12/1818 01/12/18 Range/Units 04:02 04:39 04:39 RBC 3.12 L (3.80-5.40) m/uL Hgb 9.8 L (11.4-16.0) gm/dL Hct 29.8 L (34.0-46.0) % Neutrophils # (Manual) 1.00 L (1.3-7.7) k/uL Monocytes # (Manual) 3.15 H (0-1.0) k/uL Metamyelocytes # (Man) 0.07 H (0) k/uL Carbon Dioxide 34 H (22-30) mmol/L BUN 28 H (7-17) mg/dL Glucose 168 H (74-99) mg/dL POC Glucose (mg/dL) 156 H (75-99) mg/dL Magnesium 2.4 H (1.6-2.3) mg/dL 01/12/18 01/12/18 01/12/18 Range/Units 04:46 06:09 06:45 RBC (3.80-5.40) m/uL Hgb (11.4-16.0) gm/dL Hct (34.0-46.0) % Neutrophils # (Manual) (1.3-7.7) k/uL Monocytes # (Manual) (0-1.0) k/uL Metamyelocytes # (Man) (0) k/uL Carbon Dioxide (22-30) mmol/L BUN (7-17) mg/dL Glucose (74-99) mg/dL POC Glucose (mg/dL) 179 H 155 H 154 H (75-99) mg/dL Magnesium (1.6-2.3) mg/dL 01/12/18 01/12/18 01/12/18 Range/Units 08:09 09:08 10:01 RBC (3.80-5.40) m/uL Hgb (11.4-16.0) gm/dL Hct (34.0-46.0) % Neutrophils # (Manual) (1.3-7.7) k/uL Monocytes # (Manual) (0-1.0) k/uL Metamyelocytes # (Man) (0) k/uL Carbon Dioxide (22-30) mmol/L BUN (7-17) mg/dL Glucose (74-99) mg/dL POC Glucose (mg/dL) 169 H 207 H 219 H (75-99) mg/dL Magnesium (1.6-2.3) mg/dL 01/12/18 01/12/18 01/12/18 Range/Units 11:04 11:56 12:47 RBC (3.80-5.40) m/uL Hgb (11.4-16.0) gm/dL Hct (34.0-46.0) % Neutrophils # (Manual) (1.3-7.7) k/uL Monocytes # (Manual) (0-1.0) k/uL Metamyelocytes # (Man) (0) k/uL Carbon Dioxide (22-30) mmol/L BUN (7-17) mg/dL Glucose (74-99) mg/dL POC Glucose (mg/dL) 147 H 131 H 145 H (75-99) mg/dL Magnesium (1.6-2.3) mg/dL Microbiology - Last 24 Hours (Table) 01/10/18 11:38 Gram Stain - Final Bronchial Washings - Left Bronchial Washings Culture - Final Shae albicans 01/10/18 08:00 Gram Stain - Final Sputum Sputum Culture - Final Shae albicans 01/06/18 18:42 Blood Culture - Preliminary Blood No Growth after 120 hours 01/06/18 18:20 Blood Culture - Preliminary Blood No Growth after 120 hours 01/10/18 11:38 Acid Fast Bacilli Smear - Final Lung - Left Upper Lobe Acid Fast Bacilli Culture - Preliminary Assessment and Plan Assessment: #1. Acute hypoxemic respiratory failure related to acute extensive bilateral nodular infiltrates, consistent with acute pneumonia, community acquired, and there is a concern for fungal infection in this immunocompromised host #2. Intermittent fever, chills, shortness of breath related to the above #3. Pancytopenia, patient is awaiting to undergo bone marrow biopsy #4. Mild lactic acidosis present on admission, with lactic acid level of 2.2, and the patient was fluid resuscitated with 1 L of crystalloids, and received maintenance IV fluids at a rate of 100 ML per hour, subsequent lactic acid was down to 0.8 #5. Abdominal pain, CT of abdomen and pelvis showed abnormal prominence of the central endometrium, or could possibly represent trapped fluid in the endometrial canal and abnormal endometrial thickening, be followed up with nonemergent pelvic ultrasound #6. Chronic bronchial asthma, and her latest PFT showed FEV1 of 68% of predicted, with post bronchodilator response up to 73% of predicted, and patient was diagnosed with adult onset genetic asthma. This seems to be stable right now #7. Hypertension, hyperlipidemia #8. Diabetes mellitus type 2 #9. Morbid obesity with a BMI of 54.8 kg/m #10. Chronic back pain #11. GERD/reflux on omeprazole #12. Hypothyroidism #13. Anxiety, depression #14. Lifetime nonsmoker #15 oropharyngeal candidiasis, on nystatin swish and swallow Recommendation: Continue present supportive care measures, continue O2 at 8 L nasal cannula, titrate as tolerated keep his saturation above 90%, check on the final cultures and the final testing ordered for her bilateral nodular infiltrates, will continue to monitor in the ICU today, could be transferred possibly to a medical floor tomorrow, continue antibiotics and steroids. Consider VATS lung biopsy if her condition does not improve much. Time with Patient: Less than 30
[2018-01-12 14:06] LABS: Glucose,Whole Blood 197 mg/dL (75-99)
--- NOTE | 2018-01-12 15:14 | P.PN ---
Subjective Patient was admitted with acute hypoxic respiratory failure and bilateral infiltrates consistent with pneumonia patient is being treated for healthcare associated pneumonia patient did not have any significant improvement because of which patient underwent bronchoscopy which did not show any significant past. There is a concern about hematologic malignancy because of which patient the had a biopsy of the bone marrow. Patient has significant bladder blast cells in the peripheral smear. Because of which we believe patient is immunosuppressive patient may have Pneumocystis carinii pneumonia or a fungal pneumonia. Patient was intubated SA they're able to extubate the patient today patient is on aspirin cannula oxygen. Patient is presently on meropenem Is presently on 8 L of oxygen 01/12/2018 Patient remains on meropenem all the workup from bronchial lower lobe large remains negative patient is on 10 L of onset at this time aspirin cultures is showing Shae although we do not believe it's significant. Autoimmune workup is being guarded Constitutional: Denied any fatigue denied any fever. Cardio vascular: denied any chest pain, palpitations Gastrointestinal denied any nausea vomiting Pulmonary: Denied any shortness of breath cough Neurologic denied any new focal deficits Objective - Vital Signs Vital signs: Vital Signs Temp 98.3 F 01/12/18 12:00 Pulse 68 01/12/18 14:00 Resp 14 01/12/18 14:00 BP 145/75 01/12/18 10:00 Pulse Ox 97 01/12/18 14:00 Intake & Output 01/11/18 01/12/18 01/12/18 18:59 06:59 18:59 Intake Total 890.517 322.011 524.565 Output Total 1560 1208 845 Balance -669.483 -885.989 -320.435 Weight 142.1 kg 137.7 kg Intake: IV 433 299 241 0.9 for pressure bag 33 39 21 Meropenem 2 gm In Sodium 200 100 Chloride 0.9% 100 ml @ 200 mls/hr IVPB Q8HR [facility] Rx#:[id number] Sodium Chloride 0.9% 1, 200 260 120 000 ml @ 20 mls/hr IV . Q24H [facility] Rx#:[id number] Intake, IV Titration 7.517 23.011 33.565 Amount Insulin Regular 100 unit 23.011 33.565 In Sodium Chloride 0.9% 100 ml @ Per Protocol IV .Q0M [facility] Rx#:[id number] Propofol 1,000 mg In 7.517 Empty Bag 1 bag @ Titrate IV .Q0M [facility] Rx#: [id number] Oral 450 250 Output: Urine 1560 1208 845 Other: Voiding Method Indwelling Catheter Indwelling Catheter Indwelling Catheter # Bowel Movements 1 ABP, PAP, CO, CI - Last Documented Arterial Blood Pressure 90/43 - Exam PHYSICAL EXAMINATION: GENERAL: The patient is alert and oriented x3, not in any acute distress. Well developed, well nourished. HEENT: Pupils are round and equally reacting to light. EOMI. No scleral icterus. No conjunctival pallor. Normocephalic, atraumatic. No pharyngeal erythema. No thyromegaly. CARDIOVASCULAR: S1 and S2 present. No murmurs, rubs, or gallops. PULMONARY: Chest is clear to auscultation, no wheezing or crackles. ABDOMEN: Soft, nontender, nondistended, normoactive bowel sounds. No palpable organomegaly. MUSCULOSKELETAL: No joint swelling or deformity. EXTREMITIES: No cyanosis, clubbing, or pedal edema. NEUROLOGICAL: Gross neurological examination did not reveal any focal deficits. SKIN: No rashes. - Labs CBC & Chem 7: 01/12/18 04:39 01/12/18 04:39 Labs: Abnormal Lab Results - Last 24 Hours (Table) 01/11/18 01/11/18 01/12/18 Range/Units 17:23 23:55 01:32 RBC (3.80-5.40) m/uL Hgb (11.4-16.0) gm/dL Hct (34.0-46.0) % Neutrophils # (Manual) (1.3-7.7) k/uL Monocytes # (Manual) (0-1.0) k/uL Metamyelocytes # (Man) (0) k/uL Carbon Dioxide (22-30) mmol/L BUN (7-17) mg/dL Glucose (74-99) mg/dL POC Glucose (mg/dL) 188 H 257 H 188 H (75-99) mg/dL Magnesium (1.6-2.3) mg/dL 01/12/18 01/12/18 01/12/18 Range/Units 01:59 02:55 04:02 RBC (3.80-5.40) m/uL Hgb (11.4-16.0) gm/dL Hct (34.0-46.0) % Neutrophils # (Manual) (1.3-7.7) k/uL Monocytes # (Manual) (0-1.0) k/uL Metamyelocytes # (Man) (0) k/uL Carbon Dioxide (22-30) mmol/L BUN (7-17) mg/dL Glucose (74-99) mg/dL POC Glucose (mg/dL) 177 H 165 H 156 H (75-99) mg/dL Magnesium (1.6-2.3) mg/dL 01/12/18 01/12/18 01/12/18 Range/Units 04:39 04:39 04:46 RBC 3.12 L (3.80-5.40) m/uL Hgb 9.8 L (11.4-16.0) gm/dL Hct 29.8 L (34.0-46.0) % Neutrophils # (Manual) 1.00 L (1.3-7.7) k/uL Monocytes # (Manual) 3.15 H (0-1.0) k/uL Metamyelocytes # (Man) 0.07 H (0) k/uL Carbon Dioxide 34 H (22-30) mmol/L BUN 28 H (7-17) mg/dL Glucose 168 H (74-99) mg/dL POC Glucose (mg/dL) 179 H (75-99) mg/dL Magnesium 2.4 H (1.6-2.3) mg/dL 01/12/18 01/12/18 01/12/18 Range/Units 06:09 06:45 08:09 RBC (3.80-5.40) m/uL Hgb (11.4-16.0) gm/dL Hct (34.0-46.0) % Neutrophils # (Manual) (1.3-7.7) k/uL Monocytes # (Manual) (0-1.0) k/uL Metamyelocytes # (Man) (0) k/uL Carbon Dioxide (22-30) mmol/L BUN (7-17) mg/dL Glucose (74-99) mg/dL POC Glucose (mg/dL) 155 H 154 H 169 H (75-99) mg/dL Magnesium (1.6-2.3) mg/dL 01/12/18 01/12/18 01/12/18 Range/Units 09:08 10:01 11:04 RBC (3.80-5.40) m/uL Hgb (11.4-16.0) gm/dL Hct (34.0-46.0) % Neutrophils # (Manual) (1.3-7.7) k/uL Monocytes # (Manual) (0-1.0) k/uL Metamyelocytes # (Man) (0) k/uL Carbon Dioxide (22-30) mmol/L BUN (7-17) mg/dL Glucose (74-99) mg/dL POC Glucose (mg/dL) 207 H 219 H 147 H (75-99) mg/dL Magnesium (1.6-2.3) mg/dL 01/12/18 01/12/18 01/12/18 Range/Units 11:56 12:47 14:04 RBC (3.80-5.40) m/uL Hgb (11.4-16.0) gm/dL Hct (34.0-46.0) % Neutrophils # (Manual) (1.3-7.7) k/uL Monocytes # (Manual) (0-1.0) k/uL Metamyelocytes # (Man) (0) k/uL Carbon Dioxide (22-30) mmol/L BUN (7-17) mg/dL Glucose (74-99) mg/dL POC Glucose (mg/dL) 131 H 145 H 197 H (75-99) mg/dL Magnesium (1.6-2.3) mg/dL Microbiology - Last 24 Hours (Table) 01/10/18 11:38 Gram Stain - Final Bronchial Washings - Left Bronchial Washings Culture - Final Shae albicans 01/10/18 08:00 Gram Stain - Final Sputum Sputum Culture - Final Shae albicans 01/06/18 18:42 Blood Culture - Preliminary Blood No Growth after 120 hours 01/06/18 18:20 Blood Culture - Preliminary Blood No Growth after 120 hours 01/10/18 11:38 Acid Fast Bacilli Smear - Final Lung - Left Upper Lobe Acid Fast Bacilli Culture - Preliminary Assessment and Plan Plan: -Acute hypoxic respiratory failure: With bilateral infiltrates possible etiologies being atypical pneumonia fungal pneumonia. Patient is presently on meropenem aspirin infectious disease -Possibility of acute leukemia status post bone marrow biopsy patient has pancytopenia and blasts cells -Sepsis on admission with lactic is doses which improved -Chronic bronchial asthma: Continue with systemic steroids inhalational treatments -Hypertension -Hyperlipidemia -Type 2 diabetes mellitus uncontrolled blood sugars due to systemic steroids, dose of Levemir is being increased -Morbid obesity -Chronic low back pain -Gastroesophageal reflux disease -Hypothyroidism -Anxiety and depression For above-mentioned other chronic medical problems patient will be continued on appropriate home medications
[2018-01-12 17:08] LABS: Glucose,Whole Blood 210 mg/dL (75-99)
[2018-01-12] MEDS: INSULIN DETEMIR 100 UNIT/ML 10 ML VIAL SQ SCH (20:08)
[2018-01-12] MEDS: MONTELUKAST 10 MG TAB PO SCH (20:08)
[2018-01-12 20:13] LABS: Glucose,Whole Blood 256 mg/dL (75-99)
[2018-01-12] MEDS: ZOLPIDEM 10 MG TAB PO SCH (20:20)
[2018-01-13] MEDS: hydrALAZINE HCL 20 MG/ML 1 ML VIAL IVP PRN (01:54)
[2018-01-13 04:21] LABS: HCT 29.9 % (34.0-46.0); MCH 31.8 pg (25.0-35.0); MCHC 33.5 g/dL (31.0-37.0); MCV 94.9 fL (80.0-100.0); Mean Platelet Volume 7.7; Platelet Count 176 k/uL (150-450); RBC 3.15 m/uL (3.80-5.40); RDW 14.6 % (11.5-15.5); WBC 10.9 k/uL (3.8-10.6)
[2018-01-13 04:33] LABS: Anion Gap 5 mmol/L; Blood Urea Nitrogen 34 mg/dL (7-17); Calcium 7.9 mg/dL (8.4-10.2); Carbon Dioxide 32 mmol/L (22-30); Chloride 101 mmol/L (98-107); Glucose 212 mg/dL (74-99); Magnesium 2.3 mg/dL (1.6-2.3); Phosphorus 3.7 mg/dL (2.5-4.5); Potassium 4.7 mmol/L (3.5-5.1); Sodium 138 mmol/L (137-145)
[2018-01-13 05:45] LABS: Band Neutrophils % 1 %; Blast Cells # (M) 0.11 k/uL (0); Eosinophils # (M) 0.11 k/uL (0-0.7); Lymphocytes # (M) 2.94 k/uL (1.0-4.8); Metamyelocytes # (M) 0.22 k/uL (0); Metamyelocytes % 2 %; Monocytes # (M) 5.45 k/uL (0-1.0); Myelocytes # (M) 0.11 k/uL (0); Myelocytes % 1 %; Neutrophils % (M) 19 %; Nucleated Red Blood Cells 0 /100 WBC (0-0); Total Cells Counted 200
[2018-01-13] MEDS: LEVOTHYROXINE 125 MCG TAB PO SCH (06:03)
[2018-01-13] MEDS: SODIUM CHLORIDE 0.9% 1,000 ML IV SCH ×2 (06:03→17:20)
[2018-01-13 07:03] LABS: Glucose,Whole Blood 206 mg/dL (75-99)
--- NOTE | 2018-01-13 08:08 | P.PN ---
Subjective Progress Note Date: 01/13/18 Principal diagnosis: Extensive multilobar nodular infiltrates, consistent with pneumonia, acute hypoxic respiratory failure Mrs. Brunner is a 53-year-old white female patient of Dr. Nikki Soto who presented to the hospital on 01/04/2018 at 1936 with complaints of a history fever, chills, increasing shortness of breath. She denied any cough, she denied any chest congestion, or wheezing. Has a known history of bronchial asthma, and her last hospitalization was back in August for acute asthma exacerbation secondary to acute influenza B tracheobronchitis and left lower leg cellulitis. Patient had recovered, and was doing well at home. She sees Dr. Dr. Hollingsworth in the pulmonary office for her history of bronchial asthma, and her most recent PFT showed an FEV1 of 68% of predicted, with a 9% improvement post bronchodilator treatment. This was an improvement from her PFT from 2017, which showed severe obstruction with FEV1 of 1.12 L of 43% of predicted, with improvement to 56% of predicted postbronchodilator treatment. Patient is on Singulair, Symbicort, Ventolin inhaler, in addition to Singulair, Claritin, and Flonase. Patient had never been intubated for asthma exacerbation, she is a lifetime nonsmoker, she is not sure what her triggers are. Prior to this episode, she used her rescue inhaler about once a week. Patient did have shaking chills at home, she was short of breath even walking to the bathroom. In the emergency department her initial temperature was 98.4, however through her stay in the hospital, she had been intermittently febrile with fevers as high as 103.4F. Normally does not wear oxygen at baseline, however today she became hypoxemic, with a pulse ox in the low 80s on room air, pulse ox on 4 L per nasal cannula was 86%. Patient also had some left lower quadrant discomfort , abdominal/pelvis CT was completed and showed abnormal prominence of central endometrium could represent trapped fluid in the endometrial canal, abnormal thickening could not be excluded, and nonemergent pelvic ultrasound was recommended. Multifocal groundglass opacities were noted in the lung bases. Chest x-ray showed cardiomegaly and chronic parenchymal changes without suspicious focal airspace opacity. This was compared the CT chest from 2017, which showed mild diffuse bronchial wall thickening persistent with a diagnosis of bronchitis and chronic asthma, and subtle multifocal patchy groundglass infiltrates and possible tree-in-bud densities in the right lower lobe, and distal small airways impaction with mucoid debris. At the time of the CT chest patient was completely asymptomatic. EKG showed normal sinus rhythm. Patient was started on empiric antibiotics in the form of Rocephin and azithromycin, and was admitted for further management. We were consulted today in regards to acute hypoxemic respiratory failure, stat blood gas was obtained on 10 L high flow, and it showed pO2 of 62, pCO2 41, pH of 7.41, consistent with hypoxemic respiratory failure. This morning's chest x-ray showed worsening interstitial changes, and follow-up chest x-ray this afternoon showed cardiomegaly with diffuse interstitial changes, mild pulmonary vascular congestion, findings could be correlated to atypical pneumonia or interstitial pneumonitis. ProBNP was added to this morning's labs and was within normal limits at 576. Labs show initial white count of 3.3, which subsequently decreased to 2.2 through patient's stay, hemoglobin of 11.4, down to 10.4, no evidence of coagulopathy, electrolytes within normal limits, renal profile is normal, initial plasma lactic acid was 2.2, patient was given a liter bolus in the emergency room, and received a maintenance IV fluid rate at 100 ML per hour. He was given a dose of IV Levaquin in the ER, and was subsequently switched to Rocephin and Zithromax on which she remains. Her T-max in the last 24 hours was 101.1F, patient had another episode of low-grade fever this morning with a temp of 100F. He was treated with IV Tylenol, urine and blood cultures remain negative to date. Her other medical history includes diabetes mellitus type 2, morbid obesity, GERD/reflux, hypertension, hyperlipidemia, hypothyroidism, chronic back pain, neuropathy, iron deficiency anemia, insomnia , anxiety, depression. Of note patient states she was recently seen by Dr. Lucero in consultation in regards to low white counts and anemia, and she is supposed to follow-up with him in the fall in regards to the results of testing. On today's evaluation patient is calm and comfortable, she is in no acute distress, in the recliner, on 10 L per high flow nasal cannula, his any cough, denies any chest congestion, denies any phlegm production denies any hemoptysis, denies any chest wall tenderness. We're seeing the patient in regards to acute hypoxemic respiratory failure, and the cause of which is under investigation. On 01/07/2018 she was seen again in follow-up on medical surgical floor. She remains on high flow nasal cannula, currently at 10 L, and the pulse ox remains marginal from 88-93%. Patient still remains very dyspneic, and limited in terms of activity tolerance. She did have intermittent low-grade fevers today, with T-max of 100.7F. CT chest results and films were reviewed by Dr. Wylie today, and showed extensive bilateral pulmonary airspace infiltrates assisted with acute pneumonia, and increased paratracheal adenopathy. Lung sounds are diminished, but no rhonchi, rales or wheezes noted. Patient denies any phlegm production, denies any chest congestion, there is no wheezing. Patient's IV antibiotics have been switched to Levaquin, and the patient received 1 dose. Urine and blood cultures remain negative, Legionella urine antigen and mycoplasma IgM ordered and are pending at this time. Patient did receive a few doses of IV diuretics, with no improvement in oxygenation. Hence we will stop those. There is a concern about a fungal infection versus ALLERGIC bronchopulmonary aspergillosis. Antibiotic coverage will be stepped up and switched over to meropenem and vancomycin. We'll request consultation from hematology and infectious disease service. On 01/08/2018 patient seen in follow-up. Breathing easier today, although patient still becomes quite dyspneic with any exertion, even walking to the commode. Still requiring 10 L per high flow nasal cannula, and her pulse ox remains marginal at 90-92%. On sounds are diminished, with some crackles at the left lower base. No rhonchi, no wheezing, no cough, no phlegm production. No hemoptysis, no chest wall tenderness. Her last fever was yesterday at 1457, with a temp of 100.7F. Today we switch the antibiotic coverage to meropenem and vancomycin, she was seen by ID service, mycoplasma IgM and Legionella antigen were not detected. Cultures remain negative. Repeat chest x-ray showed cardiomegaly with multifocal areas of edema and/or infiltrates affecting bilateral upper and lower lungs, no significant change from 2 days prior. On 01/09/2018 patient seen in follow-up on medical surgical floor. Still quite dyspneic with any exertion, she remains on 10 L per high flow nasal cannula, and her oxygen saturation remains marginal at 90%, no febrile episodes for almost 48 hours. Yesterday's chest x-ray did not show much improvement in terms of multifocal areas of infiltrates in bilateral upper and lower lungs. Cultures remain negative thus far, she is still not able to bring up any sputum , sounds are diminished bilaterally, with bibasilar crackles, no wheezes or rhonchi appreciated. She remains on meropenem. ID service is now following, hematology is planning a bone marrow biopsy. Today's chest x-ray is similar to the prior exam, and looking slightly worse in terms of diffuse pulmonary infiltrates. We will schedule the patient for bronchoscopy with BAL by Dr. Wylie tomorrow, and this will be done in the OR, patient will be intubated for the procedure. This was discussed with the patient and her niece, she was anxious regarding the procedure, she had a lot of questions, and concerns about potential poor outcome including procedure. Questions were answered, and there is a risk of mortality, and there is a chance of patient requiring a mechanical ventilation after the procedure, however proceeding with bronchoscopy would allow to make a diagnosis, obtain sputum samples, and direct antibiotic therapy. The patient and the niece did agree to go ahead with the procedure, patient will be nothing by mouth after midnight and bone marrow biopsy will be done by Dr. Allen following the bronchoscopy. On 01/10/2018 patient seen in follow-up on medical surgical floor, prior to her scheduled bronchoscopy. Remains on 10 L per high flow nasal cannula, she is in no acute distress, but becomes very dyspneic with any exertion. Was able to bring up some sputum today, afebrile. Cultures remain negative. Remains on meropenem. He service is following, patient is awaiting her bronchoscopy with BAL by Dr. Wylie today, which will be followed by bone marrow biopsy by Dr. Allen. Patient is to be intubated for the procedure, and there is a likelihood she would require mechanical ventilation after the procedure, and a bed will be obtained in the ICU. Patient was seen this morning on 01/11/2018, remains on mechanical ventilation, on 50% FiO2, and she was still on propofol. Patient was examined, chest x-ray was reviewed continues to show nodular infiltrates bilaterally, but slightly improved compared to the chest x-ray done post bronchoscopy yesterday. Patient was diuresed overnight, and I went ahead, discontinued the propofol, awaken the patient, and gave the patient a short weaning trial on pressure support of 8 and CPAP. She was noted to do quite well on the mode of weaning, hence I proceeded to extubating the patient to a BiPAP with IPAP of 10 and EPAP of 5, FiO2 at 50%. Patient did quite well on that mode of noninvasive positive pressure ventilation, and she looked quite comfortable. Hence I will switch her to a high flow nasal cannula if she continues to tolerate that well. All labs were reviewed, WBC count is 2.2 hemoglobin is 9.3 platelets remained 1 55, 000, electrolytes and renal profile are normal. Chest x-ray as noted earlier. Reevaluated today on 01/12/2018, remains in the intensive care unit, extubated yesterday, and tolerated the extubation well over the last 24 hours. Patient is actually now on 8 L high flow nasal cannula, and her O2 saturation is 95%. Chest x-ray showed slight improvement, remains on broad-spectrum antibiotics, diuretics, and so far the bronchial washings preliminary report is nondiagnostic. Ordered angiotensin-converting enzyme level and I ordered c anca , I have also ordered hypersensitivity panel on this patient. I have a feeling that the patient may eventually require VATS lung biopsy. This is assuming the patient does not improve with antibiotics and steroids, and if she continues to have nodular infiltrates bilaterally. Clinically however the patient is showing some improvement at least over the last couple of days. And today she seems to be doing much and much better. But her chest x-ray is still concerning , and her CT of the chest is also concerning to be. Bone marrow results are still pending. Her WBC count is up to 7 today hemoglobin is 9.8 and platelets are 174,000. Patient remains on antibiotics and steroids. On 01/13/2018 patient seen in follow-up in the intensive care unit. She is awake, alert, oriented 3, in no acute distress. Sitting up in a chair, eating breakfast. She remains on 8 L per high flow nasal cannula, pulse ox is 95-98%, incentive spirometer effort is 500-750. She was successfully extubated on 01/11, and tolerating activation quite well, denies any dyspnea, she is productive cough with production of yellowish whitish sputum. Lung sounds are positive for bibasilar crackles, no wheezes, a few scattered rhonchi, remains afebrile, denies any chills. Patient is status post bronchoscopy with BAL on , and bronchial washings culture remain negative thus far. Patient remains on empiric antibiotics in the form of meropenem. She remains on IV steroids, nebulized bronchodilators. Today's chest x-ray shows persistence of bilateral areas of airspace disease, no significant change compared the chest x- ray from yesterday. Patient is hemodynamically stable, hence fluids as 0.9 normal saline at 100 ML per hour hours. No other drips. From pulmonary/ critical care standpoint patient is stable for transfer out of intensive care unit today to general medical floor. Today's labs were noted. Objective - Vital Signs Vital signs: Vital Signs Temp 98.6 F 01/13/18 04:00 Pulse 59 L 01/13/18 07:00 Resp 20 01/13/18 07:00 BP 145/75 01/12/18 10:00 Pulse Ox 95 01/13/18 07:00 Intake & Output 01/12/18 01/13/18 01/13/18 18:59 06:59 18:59 Intake Total 277.370 1398 103 Output Total 959 927 50 Balance -95.435 346 53 Weight 136.7 kg Intake: IV 330 1273 103 0.9 for pressure bag 30 33 3 Meropenem 2 gm In Sodium 100 200 Chloride 0.9% 100 ml @ 200 mls/hr IVPB Q8HR [facility] Rx#:[id number] Sodium Chloride 0.9% 1, 1000 100 000 ml @ 100 mls/hr IV . Q10H [facility] Rx#:[id number] Sodium Chloride 0.9% 1, 200 40 000 ml @ 20 mls/hr IV . Q24H [facility] Rx#:[id number] Intake, IV Titration 33.565 Amount Insulin Regular 100 unit 33.565 In Sodium Chloride 0.9% 100 ml @ Per Protocol IV .Q0M [facility] Rx#:[id number] Oral 500 Output: Urine 959 927 50 Other: Voiding Method Indwelling Catheter Indwelling Catheter # Bowel Movements 1 1 ABP, PAP, CO, CI - Last Documented Arterial Blood Pressure 125/60 - Exam - Constitutional Alert, pleasant, 53-year-old obese white female, sitting in the recliner, currently on 10 L per high flow cannula General appearance: morbidly obese, no acute distress - EENT Eyes: PERRLA, dentition normal ENT: NA/AT - Neck Neck: no lymphadenopathy, normal ROM Carotids: bilateral: upstroke normal Thyroid: bilateral: normal size - Respiratory Respiratory: bilateral: diminished, limited rales at the left lower base, a few scattered rhonchi but no wheezes noted - Cardiovascular Rhythm: regular Heart sounds: normal: S1, S2 leg Peripheral Edema: bilateral: Trace ankle Peripheral Edema: bilateral: Trace dorsalis pedis Peripheral Pulses: bilateral: Normal radial pulse Peripheral Pulses: bilateral: Normal - Gastrointestinal General gastrointestinal: no organomegaly, soft, no tenderness - Integumentary Integumentary: normal turgor - Neurologic Neurologic: CNII-XII intact - Musculoskeletal Musculoskeletal: strength equal bilaterally - Psychiatric Psychiatric: A&O x's 3, appropriate affect, intact judgment & insight - Labs CBC & Chem 7: 01/13/18 04:00 01/13/18 04:00 Labs: Abnormal Lab Results - Last 24 Hours (Table) 01/12/18 01/12/18 01/12/18 Range/Units 08:09 09:08 10:01 WBC (3.8-10.6) k/uL RBC (3.80-5.40) m/uL Hgb (11.4-16.0) gm/dL Hct (34.0-46.0) % Monocytes # (Manual) (0-1.0) k/uL Metamyelocytes # (Man) (0) k/uL Myelocytes # (Manual) (0) k/uL Blast Cells # (Man) (0) k/uL Carbon Dioxide (22-30) mmol/L BUN (7-17) mg/dL Glucose (74-99) mg/dL POC Glucose (mg/dL) 169 H 207 H 219 H (75-99) mg/dL Calcium (8.4-10.2) mg/dL 01/12/18 01/12/18 01/12/18 Range/Units 11:04 11:56 12:47 WBC (3.8-10.6) k/uL RBC (3.80-5.40) m/uL Hgb (11.4-16.0) gm/dL Hct (34.0-46.0) % Monocytes # (Manual) (0-1.0) k/uL Metamyelocytes # (Man) (0) k/uL Myelocytes # (Manual) (0) k/uL Blast Cells # (Man) (0) k/uL Carbon Dioxide (22-30) mmol/L BUN (7-17) mg/dL Glucose (74-99) mg/dL POC Glucose (mg/dL) 147 H 131 H 145 H (75-99) mg/dL Calcium (8.4-10.2) mg/dL 01/12/18 01/12/18 01/12/18 Range/Units 14:04 17:06 20:12 WBC (3.8-10.6) k/uL RBC (3.80-5.40) m/uL Hgb (11.4-16.0) gm/dL Hct (34.0-46.0) % Monocytes # (Manual) (0-1.0) k/uL Metamyelocytes # (Man) (0) k/uL Myelocytes # (Manual) (0) k/uL Blast Cells # (Man) (0) k/uL Carbon Dioxide (22-30) mmol/L BUN (7-17) mg/dL Glucose (74-99) mg/dL POC Glucose (mg/dL) 197 H 210 H 256 H (75-99) mg/dL Calcium (8.4-10.2) mg/dL 01/13/18 01/13/18 01/13/18 Range/Units 04:00 04:00 06:46 WBC 10.9 H (3.8-10.6) k/uL RBC 3.15 L (3.80-5.40) m/uL Hgb 10.0 L (11.4-16.0) gm/dL Hct 29.9 L (34.0-46.0) % Monocytes # (Manual) 5.45 H (0-1.0) k/uL Metamyelocytes # (Man) 0.22 H (0) k/uL Myelocytes # (Manual) 0.11 H (0) k/uL Blast Cells # (Man) 0.11 H (0) k/uL Carbon Dioxide 32 H (22-30) mmol/L BUN 34 H (7-17) mg/dL Glucose 212 H (74-99) mg/dL POC Glucose (mg/dL) 206 H (75-99) mg/dL Calcium 7.9 L (8.4-10.2) mg/dL Microbiology - Last 24 Hours (Table) 01/06/18 18:42 Blood Culture - Final Blood No Growth after 144 hours 01/06/18 18:20 Blood Culture - Final Blood No Growth after 144 hours 01/10/18 11:38 Gram Stain - Final Bronchial Washings - Left Bronchial Washings Culture - Final Shae albicans 01/10/18 08:00 Gram Stain - Final Sputum Sputum Culture - Final Shae albicans Assessment and Plan Plan: Assessment: #1. Acute hypoxemic respiratory failure related to acute extensive bilateral infiltrates, consistent with acute pneumonia, community acquired, and there is a concern for fungal infection in this immunocompromised host #2. Intermittent fever, chills, shortness of breath related to the above #3. Pancytopenia, status post bone marrow biopsy, improved #4. Mild lactic acidosis present on admission, with lactic acid level of 2.2, and the patient was fluid resuscitated with 1 L of crystalloids, and received maintenance IV fluids at a rate of 100 ML per hour, subsequent lactic acid was down to 0.8 #5. Abdominal pain, CT of abdomen and pelvis showed abnormal prominence of the central endometrium, or could possibly represent trapped fluid in the endometrial canal and abnormal endometrial thickening, be followed up with nonemergent pelvic ultrasound #6. Chronic bronchial asthma, and her latest PFT showed FEV1 of 68% of predicted, with post bronchodilator response up to 73% of predicted, and patient was diagnosed with adult onset genetic asthma. This seems to be stable right now #7. Hypertension, hyperlipidemia #8. Diabetes mellitus type 2 #9. Morbid obesity with a BMI of 54.8 kg/m #10. Chronic back pain #11. GERD/reflux on omeprazole #12. Hypothyroidism #13. Anxiety, depression #14. Lifetime nonsmoker #15. Oropharyngeal candidiasis, on nystatin swish and swallow Plan: Continue current medical treatment, continue antibiotics per ID service recommendations, bronchial wash cultures remain negative thus far, bone marrow biopsy results are pending. However patient's counts are improving. No fever, no chills, no dyspnea. Continue encouraging incentive spirometry use, increase activity as tolerated, patient remains stable, no acute events overnight, FiO2 is being weaned down, and is currently down to 8 L per high flow nasal cannula. Patient is stable to transfer out of the intensive care unit today to regular medical floor. I performed a history & physical examination of the patient and discussed their management with my nurse practitioner, Flori Colunga. I reviewed the nurse practitioner's note and agree with the documented findings and plan of care. Lung sounds are positive for initial breath sounds with limited crackles at the left lower lobe. The findings and the impression was discussed with the patient. I attest to the documentation by the nurse practitioner. Time with Patient: Greater than 30
[2018-01-13] MEDS: INSULIN ASPART 100 UNIT/ML 1 ML 10 ML VIAL SQ SCH ×10 (08:31→20:53)
[2018-01-13] MEDS: HEPARIN SODIUM,PORCINE 5,000 UNIT/ML 1 ML VIAL SQ SCH ×3 (08:32→23:03)
[2018-01-13] MEDS: methylPREDNISolone SOD SUCCI 125 MG/2 ML VIAL IV SCH ×3 (08:32→23:03)
[2018-01-13] MEDS: FERROUS SULFATE 325 MG TAB PO SCH (08:33)
[2018-01-13] MEDS: GABAPENTIN 300 MG CAP PO SCH ×3 (08:33→20:55)
[2018-01-13] MEDS: LORATADINE 10 MG TAB PO SCH (08:33)
[2018-01-13] MEDS: ASPIRIN 81 MG PO SCH (08:33)
[2018-01-13] MEDS: ESCITALOPRAM 10 MG TAB PO SCH (08:33)
[2018-01-13] MEDS: busPIRone HCl 5 MG TAB PO SCH ×2 (08:33→20:53)
[2018-01-13] MEDS: FUROSEMIDE 10 MG/ML 2 ML VIAL IV SCH ×2 (08:33→20:53)
[2018-01-13] MEDS: CALCIUM CARB-VIT D 500MG-200UN 1 EACH TAB PO SCH (08:33)
[2018-01-13] MEDS: FLUTICASONE 50MCG/SPRAY NASAL 16GM EA NOSTRIL SCH (08:33)
[2018-01-13] MEDS: ATORVASTATIN 20 MG TAB PO SCH (08:33)
[2018-01-13] MEDS: PANTOPRAZOLE 40 MG/10 ML VIAL IV SCH (08:34)
[2018-01-13] MEDS: METOPROLOL TARTRATE 50 MG TAB PO SCH ×2 (08:34→20:54)
[2018-01-13] MEDS: NYSTATIN 100,000 UNIT/ML SUSP 500,000 UNIT/5 ML CUP PO SCH ×4 (08:34→20:55)
[2018-01-13] MEDS: POTASSIUM CHLORIDE ER 20 MEQ TAB.ER PO SCH ×2 (08:34→20:55)
--- NOTE | 2018-01-13 08:40 | XR ---
EXAMINATION TYPE: XR chest 1V portable DATE OF EXAM: 01/13/2018 COMPARISON: 01/12/2018 HISTORY: Shortness of breath TECHNIQUE: Single frontal view of the chest is obtained. FINDINGS: Diffuse pleural-parenchymal changes are stable. Left-sided PICC line noted. Cardiomegaly s table. No sizable pneumothorax. IMPRESSION: Stable chronic pleural-parenchymal changes. Pneumonia versus CHF.
[2018-01-13] MEDS: MEROPENEM 2 GM in SODIUM CHLORIDE 0.9% 100 ML IVPB SCH ×3 (08:49→23:09)
[2018-01-13 10:24] VITALS: BMI 55.1
[2018-01-13] MEDS: CHLORHEXIDINE GLUCONATE 15 ML CUP MUCOUS MEM SCH (10:51)
[2018-01-13] MEDS: IPRATROPIUM-ALBUTEROL 3 ML NEB INHALATION PRN ×2 (11:40→15:31)
[2018-01-13 12:34] LABS: Glucose,Whole Blood 152 mg/dL (75-99)
[2018-01-13] MEDS: CYANOCOBALAMIN 500 MCG TAB PO SCH (12:43)
[2018-01-13 15:29] LABS: C-ANCA <1:20 Titer (<1:20); P-ANCA <1:20 Titer (<1:20)
--- NOTE | 2018-01-13 16:59 | P.PN ---
Subjective Progress Note Date: 01/13/18 Progress note being dictated for Dr. Amos. Interval history: Patient is a 53-year-old male with a known history of hypertension, diabetes type II and previous history of diverticulitis came to ER with complaints of left-sided abdominal pain along with fever and chills worsening for the past 3 days. Patient was also having increased shortness of breath and chest pain with deep breathing. Patient does have cough but without much sputum production. No nausea vomiting. No diarrhea. Patient thought that she was having diverticulitis again and came to the hospital for further evaluation. Patient had diverticular [place] 2 months ago. Denied any sick contacts. No travel. Patient felt generally weak and generalized body aches. Patient was febrile on admission. Denies any leg swelling, back pain, peripheral paresthesias, headaches, sore throat, upper respiratory symptoms. T-max 101.8 Chest x-ray showed cardiomegaly and chronic changes without suspicious acute infiltrate. CT of abdomen pelvis showed new multifocal groundglass opacities in the lung base could reflect new multifocal pneumonia. Correlate clinically Attention to her uterus abnormal prominence of the central endometrium could reflect trapped fluid in the endometrial canal., Abnormal thickening cannot be excluded. Advise nonemergent pelvic ultrasound follow-up tofurther assess. Review of Systems Constitutional: Patient does have fever and chills and muscle aches and generalized body weakness Abdomen: Patient denied nausea vomiting. Patient does have abdominal pain. Cardiovascular: Patient denies any chest pain or short of breath no palpitations. Respiratory: Cough without sputum production. Patient does have shortness of breath Neurologic: Patient denied any numbness or tingling headache. Musculoskeletal: Patient denies any complaints of joint swelling or deformity. Skin: Negative Psychiatric: Negative Endocrine: No heat or cold intolerance. No recent weight gain. Genitourinary: No dysuria or hematuria. All other 14 point ROS negative except the above 01/06/2018 denies cough, desatted, maintaining O2 sats of 86-87% on 4 L nasal cannula, respiratory rate 20, tachycardic. ABGs ordered. Sitting up at side of bed, conversing without shortness of breath. Currently afebrile, T-max 101.1 , blood cultures pending.Denies chest pain, palpitations or increasing shortness of breath. Pancytopenia currently being worked up outpatient with Dr. Atkinson. 01/07/18 T-max 101.7.dyspnea continues ,currently maintaining O2 sats in the high 80s to low 90s on 10 L high flow nasal cannula O2 . Currently wearing 50% Ventimask. Short of breath with minimal exertion, limited reserve. CT reporting new extensive bilateral pulmonary airspace infiltrates compared to prior exam, acute pneumonia, increased paratracheal adenopathy. Mycoplasma IgM , Legionella urine antigen pending.Echo reporting low normal LV function, EF 50- 55%. Developed nosebleed earlier, subsided. Received Levaquin, now receiving Merrem. Infectious disease consulted. 01/08/2018 continues on high flow nasal cannula 10 L. chest x-ray with no significant change .afebrile, T-max 100.7. Steroids initiated yesterday, hyperglycemic. flow cytometry pathology reporting myeloid blasts with consideration of marrow examination. Mycoplasma IgM antibody and Legionella not detected. Multiple episodes of diarrhea reported. 01/09/2018 no overnight events, remains on 10 L high flow nasal cannula maintaining O2 sats in the high 80s to low 90s. Minimal sputum production. Afebrile, cultures currently negative. Scheduled for diagnostic bronchoscopy, bone marrow biopsy tomorrow. 01/10/2018 maintained on Merrem as per infectious disease. Afebrile, cultures negative. continues on 10 L high flow nasal cannula with current O2 sats in the mid 90s.NPO, awaiting bronchoscopy and bone marrow biopsy today. Denies chest pain, palpitations. 01/11/18 Patient was admitted with acute hypoxic respiratory failure and bilateral infiltrates consistent with pneumonia patient is being treated for healthcare associated pneumonia patient did not have any significant improvement because of which patient underwent bronchoscopy which did not show any significant past. There is a concern about hematologic malignancy because of which patient the had a biopsy of the bone marrow. Patient has significant bladder blast cells in the peripheral smear. Because of which we believe patient is immunosuppressive patient may have Pneumocystis carinii pneumonia or a fungal pneumonia. Patient was intubated SA they're able to extubate the patient today patient is on aspirin cannula oxygen. Patient is presently on meropenem Is presently on 8 L of oxygen 01/12/2018 Patient remains on meropenem all the workup from bronchial lower lobe large remains negative patient is on 10 L of onset at this time aspirin cultures is showing Shae although we do not believe it's significant. Autoimmune workup is being guarded Constitutional: Denied any fatigue denied any fever. Cardio vascular: denied any chest pain, palpitations Gastrointestinal denied any nausea vomiting Pulmonary: Denied any shortness of breath cough Neurologic denied any new focal deficits 01/13/18 chest x-ray reporting stable chronic changes, pneumonia versus CHF. Maintained on Merrem. Afebrile, preliminary bronch cultures negative. Bone marrow biopsy results pending. WBC improving, up to 10.9. Weaned down to 3 L nasal cannula O2. Objective - Vital Signs Vital signs: Vital Signs Temp 97.9 F 01/13/18 12:00 Pulse 54 L 01/13/18 15:41 Resp 12 01/13/18 14:00 BP 145/75 01/12/18 10:00 Pulse Ox 96 01/13/18 14:00 Intake & Output 01/12/18 01/13/18 01/13/18 18:59 06:59 18:59 Intake Total 647.606 9242 1527 Output Total 959 927 822 Balance -95.435 346 705 Weight 136.7 kg 136.7 kg Intake: IV 330 1273 1127 0.9 for pressure bag 30 33 27 Meropenem 2 gm In Sodium 100 200 200 Chloride 0.9% 100 ml @ 200 mls/hr IVPB Q8HR [facility] Rx#:[id number] Sodium Chloride 0.9% 1, 1000 900 000 ml @ 100 mls/hr IV . Q10H [facility] Rx#:[id number] Sodium Chloride 0.9% 1, 200 40 000 ml @ 20 mls/hr IV . Q24H [facility] Rx#:[id number] Intake, IV Titration 33.565 Amount Insulin Regular 100 unit 33.565 In Sodium Chloride 0.9% 100 ml @ Per Protocol IV .Q0M [facility] Rx#:[id number] Oral 500 400 Output: Urine 959 927 822 Other: Voiding Method Indwelling Catheter Indwelling Catheter Indwelling Catheter # Bowel Movements 1 1 ABP, PAP, CO, CI - Last Documented Arterial Blood Pressure 117/59 - Exam PHYSICAL EXAMINATION: GENERAL: The patient is alert and oriented x3, not in any acute distress. HEENT: Pupils are round and equally reacting to light. EOMI. No scleral icterus. No conjunctival pallor. Normocephalic, atraumatic. No pharyngeal erythema. No thyromegaly. Oral mucosa moist CARDIOVASCULAR: S1 and S2 present. No murmurs, rubs, or gallops. PULMONARY: Bilateral bases diminished, fine bibasilar crackles, occasional scattered rhonchi, no wheezes ABDOMEN: Soft, nontender, nondistended, normoactive bowel sounds. No palpable organomegaly. MUSCULOSKELETAL: No joint swelling or deformity. EXTREMITIES: No cyanosis, clubbing, mild pedal edema. NEUROLOGICAL: Gross neurological examination did not reveal any focal deficits. - Labs CBC & Chem 7: 01/13/18 04:00 01/13/18 04:00 Labs: Abnormal Lab Results - Last 24 Hours (Table) 01/12/18 01/12/18 01/13/18 Range/Units 17:06 20:12 04:00 WBC 10.9 H (3.8-10.6) k/uL RBC 3.15 L (3.80-5.40) m/uL Hgb 10.0 L (11.4-16.0) gm/dL Hct 29.9 L (34.0-46.0) % Monocytes # (Manual) 5.45 H (0-1.0) k/uL Metamyelocytes # (Man) 0.22 H (0) k/uL Myelocytes # (Manual) 0.11 H (0) k/uL Blast Cells # (Man) 0.11 H (0) k/uL Carbon Dioxide (22-30) mmol/L BUN (7-17) mg/dL Glucose (74-99) mg/dL POC Glucose (mg/dL) 210 H 256 H (75-99) mg/dL Calcium (8.4-10.2) mg/dL 01/13/18 01/13/18 01/13/18 Range/Units 04:00 06:46 12:32 WBC (3.8-10.6) k/uL RBC (3.80-5.40) m/uL Hgb (11.4-16.0) gm/dL Hct (34.0-46.0) % Monocytes # (Manual) (0-1.0) k/uL Metamyelocytes # (Man) (0) k/uL Myelocytes # (Manual) (0) k/uL Blast Cells # (Man) (0) k/uL Carbon Dioxide 32 H (22-30) mmol/L BUN 34 H (7-17) mg/dL Glucose 212 H (74-99) mg/dL POC Glucose (mg/dL) 206 H 152 H (75-99) mg/dL Calcium 7.9 L (8.4-10.2) mg/dL Microbiology - Last 24 Hours (Table) 01/10/18 11:38 Fungal Culture - Preliminary Lung - Left Upper Lobe Shae albicans 01/06/18 18:42 Blood Culture - Final Blood No Growth after 144 hours 01/06/18 18:20 Blood Culture - Final Blood No Growth after 144 hours Assessment and Plan Assessment: Sepsis secondary to acute bibasilar multifocal pneumonia, community-acquired, Mycoplasma IgM antibody and Legionella not detected. Acute hypoxic respiratory failure, bilateral infiltrates, possibly related to atypical pneumonia,fungal pneumonia. Lactic acidosis 2.1 admission resolved now Pancytopenia. Patient is being worked up for leukemia and Dr. Atkinson's office.flow cytometry pathology reporting myeloid blasts. Status post bone marrow biopsy Chronic bronchial asthma Hypertension Hyperlipidemia Hypothyroidism Chronic back pain Iron deficiency anemia Recent history of acute diverticulitis Anxiety and depression\ Morbid obesity with BMI 54.8 DVT prophylaxis Diabetes mellitus, elevated hemoglobin A1c 7.8. Hyperglycemia, steroid-induced. Plan: Continue on current medication regime ,monitoring and symptomatic treatment. Antibiotics as per Infectious disease. Continue following cultures closely, biopsy results pending. Aggressive pulmonary toileting with incentive spirometer reinforced. Maintain nebulized bronchodilators, steroids. Awaiting transfer out of ICU to [facility] floor as per mechanical adjuster.. The impression and plan of care has been dictated as directed. : I performed a history and examination of this patient, discussed the same with the dictator. I agree with the dictator's note ,documented as a scribe. Any additional findings or plans will be noted.
[2018-01-13 17:20] LABS: Glucose,Whole Blood 205 mg/dL (75-99)
[2018-01-13 20:41] LABS: Glucose,Whole Blood 240 mg/dL (75-99)
[2018-01-13] MEDS: INSULIN DETEMIR 100 UNIT/ML 10 ML VIAL SQ SCH (20:54)
[2018-01-13] MEDS: MONTELUKAST 10 MG TAB PO SCH (20:55)
[2018-01-13] MEDS: ZOLPIDEM 10 MG TAB PO SCH (23:03)
--- NOTE | 2018-01-13 23:37 | P.PN ---
Subjective Progress Note Date: 01/13/18 This is a 53-year-old female patient known to ID service as she was seen during her hospitalization in July of this year. At that time she was treated for acute asthma exacerbation complicated by influenza B tracheobronchitis. ID was consulted regarding a cellulitis of the lower extremities. Patient was discharged home on Keflex. Regarding her legs, patient states that they occasionally get red but not a significant problem at this time. Patient states that she has had for about the last month difficulty with ambulating very far and early fatigue and shortness of breath. She states she has been sick for about one week or more with fever and worsening shortness of breath along with cough. She came into [facility] emergency center and on CAT scan of the chest done on 01/06 showed new extensive bilateral pulmonary airspace infiltrate consistent with acute asthma. Increased hair a tracheal adenopathy. She was originally treated with Levaquin and has been switched over to meropenem by Dr. Rubalcava. Patient is also been febrile with pancytopenia. Mycoplasma pneumoniae IgM was normal and Legionella antigen was not detected. Flow cytology recommends consideration of a marrow examination. Consult has been added for oncology. Patient has had ongoing difficulty with hypoxia and remains on high flow nasal cannula at 10 L pulse oxing 86%. She states she becomes extremely winded is getting to the commode chair. Her course has been complicated by episode of epistaxis which is now controlled and also initially vomiting which is also been resolved. She does state that she has 4 episodes of diarrhea today. 01/10/2018 patient has had some progression of her status in that her pulmonary status has not improved and her leukopenia and anemia have worsened. She has been seen by both pulmonary critical care and oncology and constantly has now undergone a bronchoscopy and a bone marrow aspiration. She has respiratory failure and required ongoing mechanical ventilation after her bronchoscopy,is in the intensive care unit. She is sedated but not requiring vasopressor therapy. January 10 the patient has had significant improvement of her status. The patient has tolerated extubation and is now down to 2 L nasal cannula with adequate oxygenation. The levels improved. She is eating without great difficulties. Shortness of breath at rest is improved. Denies discomforts. She did have a bit of a nosebleed earlier that has resolved. Potentially also had some vaginal bleeding that is also improved. Objective - Vital Signs Vital signs: Vital Signs Temp 97.8 F 01/13/18 20:00 Pulse 61 01/13/18 20:00 Resp 21 01/13/18 20:00 BP 133/60 01/13/18 20:00 Pulse Ox 95 01/13/18 20:00 Intake & Output 01/13/18 01/13/18 01/14/18 06:59 18:59 06:59 Intake Total 1273 2036 303 Output Total 927 937 75 Balance 346 1099 228 Weight 136.7 kg 136.7 kg Intake: IV 1273 1436 103 0.9 for pressure bag 33 36 3 Meropenem 2 gm In Sodium 200 200 Chloride 0.9% 100 ml @ 200 mls/hr IVPB Q8HR [facility] Rx#:[id number] Sodium Chloride 0.9% 1, 1000 1200 100 000 ml @ 100 mls/hr IV . Q10H [facility] Rx#:[id number] Sodium Chloride 0.9% 1, 40 000 ml @ 20 mls/hr IV . Q24H [facility] Rx#:[id number] Oral 600 200 Output: Urine 927 937 75 Other: Voiding Method Indwelling Catheter Indwelling Catheter # Bowel Movements 1 ABP, PAP, CO, CI - Last Documented Arterial Blood Pressure 133/61 - Exam Gen: This is a morbidly obese 53-year-old female. She is status post bronchoscopy as well as bone marrow aspiration. She required intubation for the bronchoscopy and she is now extubated and doing well. Sitting up in a chair and is comfortable HEENT: Head is atraumatic, normocephalic. Pupils equal, round. Sclerae is anicteric. Conjunctiva pink. Mucous members of the mouth are moist. No thrush noted. NECK: Supple. No JVD. No lymphadenopathy. No thyromegaly. LUNGS: Diminished bilaterally. No wheezes. Mild intercostal retractions. HEART: Regular rate and rhythm. No murmur. ABDOMEN: Soft. Bowel sounds are present. No masses. No tenderness. EXTREMITIES: Trace bilateral pedal edema. No calf tenderness. Dorsalis pedis + 2 bilaterally. NEUROLOGICAL: Awake alert oriented person place and time with no acute gross focal sensory motor deficits - Labs CBC & Chem 7: 01/13/18 04:00 01/13/18 04:00 Labs: Abnormal Lab Results - Last 24 Hours (Table) 01/13/18 01/13/18 01/13/18 Range/Units 04:00 04:00 06:46 WBC 10.9 H (3.8-10.6) k/uL RBC 3.15 L (3.80-5.40) m/uL Hgb 10.0 L (11.4-16.0) gm/dL Hct 29.9 L (34.0-46.0) % Monocytes # (Manual) 5.45 H (0-1.0) k/uL Metamyelocytes # (Man) 0.22 H (0) k/uL Myelocytes # (Manual) 0.11 H (0) k/uL Blast Cells # (Man) 0.11 H (0) k/uL Carbon Dioxide 32 H (22-30) mmol/L BUN 34 H (7-17) mg/dL Glucose 212 H (74-99) mg/dL POC Glucose (mg/dL) 206 H (75-99) mg/dL Calcium 7.9 L (8.4-10.2) mg/dL 01/13/18 01/13/18 01/13/18 Range/Units 12:32 17:15 20:39 WBC (3.8-10.6) k/uL RBC (3.80-5.40) m/uL Hgb (11.4-16.0) gm/dL Hct (34.0-46.0) % Monocytes # (Manual) (0-1.0) k/uL Metamyelocytes # (Man) (0) k/uL Myelocytes # (Manual) (0) k/uL Blast Cells # (Man) (0) k/uL Carbon Dioxide (22-30) mmol/L BUN (7-17) mg/dL Glucose (74-99) mg/dL POC Glucose (mg/dL) 152 H 205 H 240 H (75-99) mg/dL Calcium (8.4-10.2) mg/dL Microbiology - Last 24 Hours (Table) 01/10/18 11:38 Fungal Culture - Preliminary Lung - Left Upper Lobe Shae albicans 01/06/18 18:42 Blood Culture - Final Blood No Growth after 144 hours 01/06/18 18:20 Blood Culture - Final Blood No Growth after 144 hours Laboratory Results WBC 10.9 k/uL (3.8-10.6) H 01/13/18 04:00 RBC 3.15 m/uL (3.80-5.40) L 01/13/18 04:00 Hgb 10.0 gm/dL (11.4-16.0) L 01/13/18 04:00 Hct 29.9 % (34.0-46.0) L 01/13/18 04:00 MCV 94.9 fL (80.0-100.0) 01/13/18 04:00 MCH 31.8 pg (25.0-35.0) 01/13/18 04:00 MCHC 33.5 g/dL (31.0-37.0) 01/13/18 04:00 RDW 14.6 % (11.5-15.5) 01/13/18 04:00 Plt Count 176 k/uL (150-450) 01/13/18 04:00 Neutrophils % (Manual) 19 % 01/13/18 04:00 Band Neutrophils % 1 % 01/13/18 04:00 Lymphocytes % (Manual) 27 % 01/13/18 04:00 Monocytes % (Manual) 50 % 01/13/18 04:00 Eosinophils % (Manual) 1 % 01/13/18 04:00 Basophils % (Manual) 1 % 01/05/18 08:50 Metamyelocytes % 2 % 01/13/18 04:00 Myelocytes % 1 % 01/13/18 04:00 Blast Cells % 1 % 01/13/18 04:00 Neutrophils # (Manual) 2.10 k/uL (1.3-7.7) 01/13/18 04:00 Lymphocytes # (Manual) 2.94 k/uL (1.0-4.8) 01/13/18 04:00 Monocytes # (Manual) 5.45 k/uL (0-1.0) H 01/13/18 04:00 Eosinophils # (Manual) 0.11 k/uL (0-0.7) 01/13/18 04:00 Basophils # (Manual) 0.03 k/uL (0-0.2) 01/05/18 08:50 Metamyelocytes # (Man) 0.22 k/uL (0) H 01/13/18 04:00 Myelocytes # (Manual) 0.11 k/uL (0) H 01/13/18 04:00 Blast Cells # (Man) 0.11 k/uL (0) H 01/13/18 04:00 Nucleated RBCs 0 /100 WBC (0-0) 01/13/18 04:00 Manual Slide Review Performed 01/12/18 04:39 Pathologist Review See comment A 01/05/18 08:50 RBC Morphology Normal 01/13/18 04:00 Hypochromasia (manual) Present 01/11/18 04:15 Poikilocytosis (manual Present 01/11/18 04:15 Macrocytosis Slight 01/10/18 08:08 PT 10.8 sec (9.0-12.0) 01/10/18 14:35 INR 1.1 (<1.2) 01/10/18 14:35 APTT 22.2 sec (22.0-30.0) 01/04/18 20:00 Sample Site [place] 01/10/18 14:10 ABG pH 7.32 (7.35-7.45) L 01/10/18 14:10 ABG pCO2 55 mmHg (35-45) H 01/10/18 14:10 ABG pO2 106 mmHg (83-108) 01/10/18 14:10 ABG HCO3 28 mmol/L (21-25) H 01/10/18 14:10 ABG Total CO2 30 mmol/L (19-24) H 01/10/18 14:10 ABG O2 Saturation 97.9 % (94-97) H 01/10/18 14:10 ABG Base Excess 2.3 mmol/L 01/10/18 14:10 Bk Test no 01/10/18 14:10 FiO2 100 % 01/10/18 14:10 Sodium 138 mmol/L (137-145) 01/13/18 04:00 Potassium 4.7 mmol/L (3.5-5.1) 01/13/18 04:00 Chloride 101 mmol/L (98-107) 01/13/18 04:00 Carbon Dioxide 32 mmol/L (22-30) H 01/13/18 04:00 Anion Gap 5 mmol/L 01/13/18 04:00 BUN 34 mg/dL (7-17) H 01/13/18 04:00 Creatinine 0.80 mg/dL (0.52-1.04) 01/13/18 04:00 Est GFR (CKD-EPI)AfAm >90 (>60 ml/min/1.73 sqM) 01/13/18 04:00 Est GFR (CKD-EPI)NonAf 84 (>60 ml/min/1.73 sqM) 01/13/18 04:00 Glucose 212 mg/dL (74-99) H 01/13/18 04:00 POC Glucose (mg/dL) 240 mg/dL (75-99) H 01/13/18 20:39 POC Glu Spectacle Truer ID Essence [place] 01/13/18 20:[address] Glu mg/dL 177 01/05/18 08:50 Hemoglobin A1c 7.8 % (4.0-6.0) H 01/05/18 08:50 Lactic Ac Sepsis Rflx Y 01/04/18 20:51 Plasma Lactic Acid [place] 0.8 mmol/L (0.7-2.0) 01/04/18 23:55 Calcium 7.9 mg/dL (8.4-10.2) L 01/13/18 04:00 Phosphorus 3.7 mg/dL (2.5-4.5) 01/13/18 04:00 Magnesium 2.3 mg/dL (1.6-2.3) 01/13/18 04:00 Total Bilirubin 1.1 mg/dL (0.2-1.3) 01/04/18 20:00 AST 28 U/L (14-36) 01/04/18 20:00 ALT 33 U/L (9-52) 01/04/18 20:00 Alkaline Phosphatase 82 U/L (38-126) 01/04/18 20:00 Total Creatine Kinase 49 U/L (30-135) 01/04/18 20:00 CK-MB (CK-2) <0.2 ng/mL (0.0-2.4) 01/04/18 20:00 CK-MB (CK-2) Rel Index 01/04/18 20:00 Troponin I <0.012 ng/mL (0.000-0.034) 01/04/18 20:00 NT-Pro-B Natriuret Pep 576 pg/mL 01/06/18 08:35 Total Protein 7.2 g/dL (6.3-8.2) 01/04/18 20:00 Albumin 4.1 g/dL (3.5-5.0) 01/04/18 20:00 Angiotensin Convert Enz 29 U/L (8-52) 01/12/18 04:39 Urine Color Yellow 01/04/18 20:00 Urine Appearance Clear (Clear) 01/04/18 20:00 Urine pH 7.0 (5.0-8.0) 01/04/18 20:00 Ur Specific [place] 1.010 (1.001-1.035) 01/04/18 20:00 Urine Protein Negative (Negative) 01/04/18 20:00 Urine Glucose (UA) Negative (Negative) 01/04/18 20:00 Urine Ketones Negative (Negative) 01/04/18 20:00 Urine Blood Negative (Negative) 01/04/18 20:00 Urine Nitrite Negative (Negative) 01/04/18 20:00 Urine Bilirubin Negative (Negative) 01/04/18 20:00 Urine Urobilinogen <2.0 mg/dL (<2.0) 01/04/18 20:00 Ur Leukocyte Esterase Negative (Negative) 01/04/18 20:00 Fluid Source Bronchial Wash 01/10/18 11:38 Fluid Color Colorless 01/10/18 11:38 Fluid Appearance Blood Tinged 01/10/18 11:38 Fluid RBC 680 /uL 01/10/18 11:38 Fluid Nucleated Cells 20 /uL 01/10/18 11:38 Fluid Polynuclear WBCs 64 % 01/10/18 11:38 Fluid Mononuclear WBCs 35 % 01/10/18 11:38 Fluid Eosinophils 1 % 01/10/18 11:38 c-ANCA <1:20 Titer (<1:20) 01/12/18 04:39 p-ANCA <1:20 Titer (<1:20) 01/12/18 04:39 Urine Legionella Ag Not detected (Not detected) 01/06/18 16:51 Mycoplasma pneumon IgM 0.22 INDEX (<=0.90) 01/06/18 08:35 Virus Source See Below 01/10/18 11:38 Viral Test See Below 01/10/18 11:38 Virus Analysis Interp See Below 01/10/18 11:38 Flow Results Microbiology 01/10/18 11:38 Lung - Left Upper Lobe Fungal Culture - Preliminary Shae albicans 01/06/18 18:42 Blood Blood Culture - Final No Growth after 144 hours 01/06/18 18:20 Blood Blood Culture - Final No Growth after 144 hours 01/10/18 11:38 Bronchial Washings - Left Gram Stain - Final 01/10/18 11:38 Bronchial Washings - Left Bronchial Washings Culture - Final Shae albicans 01/10/18 08:00 Sputum Gram Stain - Final 01/10/18 08:00 Sputum Sputum Culture - Final Shae albicans 01/10/18 11:38 Lung - Left Upper Lobe Acid Fast Bacilli Smear - Final 01/10/18 11:38 Lung - Left Upper Lobe Acid Fast Bacilli Culture - Preliminary 01/04/18 20:00 Blood Blood Culture - Final No Growth after 144 hours 01/04/18 20:00 Urine,Voided Urine Culture - Final See Pathology Report 01/05/18 08:50 Assessment and Plan (1) Pneumonia Narrative/Plan: This pleasant 53-year-old woman is have underlying asthma and last time she was ill she had cellulitis prior to that she had influenza B and exacerbation of her asthma. Now presents with progressive acute illness. Has been seen in the outpatient setting by oncology because of leukopenia. Workup had been started. Patient is not having difficulties with worsening leukopenia anemia and bleeding. She remains acutely ill with pneumonia and is also having difficulties with diarrhea. The patient has now been seen again by oncology and the peripheral smear is markedly abnormal with blasts that are evident and consequently they are planning for the bone marrow biopsy and aspirate as soon as they possibly can. At this time she is on broad-spectrum antibiotic therapy. Her fevers are controlled and she is stable. Certainly if she has acute leukemia will be worried about an Aspergillus infection. Galactomannan antigen testing is requested at this time to guide treatment. 01/10/2018 the patient is now status post bronchoscopy and has remained intubated sedated and mechanically ventilated, bone marrow aspiration also performed. Findings the bronchoscopy to further help direct antimicrobial therapy including the potential addition of antifungal therapy for Aspergillus. She fortunately is quite comfortable at this point in time. She is profoundly ill and await the bone marrow results determine if there is a significant derangement of the bone marrow. Is on Merrem and is not febrile but has progressive leukopenia. 01/13/2018 the patient is now markedly improved such that she is extubated sitting upright in a chair and has had her meal without difficulties. Bronchoscopy was performed and she did require transient intubation, since extubation she is feeling better. Respiratory status improved. She is titrated to 2 liters nasal cannula and does not feel short of breath at rest. Does not have any significant new discomforts. The bone marrow aspiration results remain pending, peripheral blood showed about 10% blast, and now his compression a 55% monocytes. The oncology input is also pending at this time. We'll complete 7 days of meropenem. A fungal evaluation does not reveal evidence of aspergillosis, she is also negative for Legionella and Mycoplasma. Current Visit: Yes Status: Acute Code(s): J18.9 - PNEUMONIA, UNSPECIFIED ORGANISM SNOMED Code(s): 387303461 (2) Pancytopenia Current Visit: Yes Status: Acute Priority: High Code(s): D61.818 - OTHER PANCYTOPENIA SNOMED Code(s): 861226585 (3) Obesity, Class III, BMI 40-49.9 (morbid obesity) Current Visit: No Status: Acute Code(s): E66.01 - MORBID (SEVERE) OBESITY DUE TO EXCESS CALORIES SNOMED Code(s): 869425503
[2018-01-14] MEDS: SODIUM CHLORIDE 0.9% 1,000 ML IV SCH ×3 (03:44→23:54)
[2018-01-14] MEDS: LEVOTHYROXINE 125 MCG TAB PO SCH (06:51)
[2018-01-14] MEDS: IPRATROPIUM-ALBUTEROL 3 ML NEB INHALATION PRN ×3 (07:46→20:23)
[2018-01-14 07:52] LABS: Glucose,Whole Blood 127 mg/dL (75-99)
[2018-01-14] MEDS: PANTOPRAZOLE 40 MG/10 ML VIAL IV SCH (07:59)
[2018-01-14] MEDS: GABAPENTIN 300 MG CAP PO SCH ×3 (07:59→21:03)
[2018-01-14] MEDS: FUROSEMIDE 10 MG/ML 2 ML VIAL IV SCH ×2 (07:59→21:03)
[2018-01-14] MEDS: FLUTICASONE 50MCG/SPRAY NASAL 16GM EA NOSTRIL SCH (07:59)
[2018-01-14] MEDS: NYSTATIN 100,000 UNIT/ML SUSP 500,000 UNIT/5 ML CUP PO SCH ×4 (07:59→21:03)
[2018-01-14] MEDS: HEPARIN SODIUM,PORCINE 5,000 UNIT/ML 1 ML VIAL SQ SCH ×3 (07:59→23:04)
[2018-01-14] MEDS: methylPREDNISolone SOD SUCCI 125 MG/2 ML VIAL IV SCH (07:59)
[2018-01-14] MEDS: POTASSIUM CHLORIDE ER 20 MEQ TAB.ER PO SCH ×2 (08:00→21:02)
[2018-01-14] MEDS: LORATADINE 10 MG TAB PO SCH (08:00)
[2018-01-14] MEDS: CALCIUM CARB-VIT D 500MG-200UN 1 EACH TAB PO SCH (08:00)
[2018-01-14] MEDS: ESCITALOPRAM 10 MG TAB PO SCH (08:00)
[2018-01-14] MEDS: FERROUS SULFATE 325 MG TAB PO SCH (08:00)
[2018-01-14] MEDS: METOPROLOL TARTRATE 50 MG TAB PO SCH ×2 (08:00→21:03)
[2018-01-14] MEDS: ASPIRIN 81 MG PO SCH (08:00)
[2018-01-14] MEDS: INSULIN ASPART 100 UNIT/ML 1 ML 10 ML VIAL SQ SCH ×7 (08:00→21:09)
[2018-01-14] MEDS: busPIRone HCl 5 MG TAB PO SCH ×2 (08:00→21:03)
[2018-01-14] MEDS: ATORVASTATIN 20 MG TAB PO SCH (08:00)
[2018-01-14] MEDS: MEROPENEM 2 GM in SODIUM CHLORIDE 0.9% 100 ML IVPB SCH ×3 (08:35→23:51)
[2018-01-14 09:34] LABS: HCT 32.5 % (34.0-46.0); HGB 10.5 gm/dL (11.4-16.0); MCH 30.7 pg (25.0-35.0); MCHC 32.4 g/dL (31.0-37.0); MCV 94.8 fL (80.0-100.0); Platelet Count 202 k/uL (150-450); RBC 3.43 m/uL (3.80-5.40); RDW 14.8 % (11.5-15.5); WBC 22.6 k/uL (3.8-10.6)
[2018-01-14 10:26] LABS: Anion Gap 7 mmol/L; Blood Urea Nitrogen 31 mg/dL (7-17); Calcium 8.2 mg/dL (8.4-10.2); Carbon Dioxide 27 mmol/L (22-30); Chloride 105 mmol/L (98-107); Glucose 125 mg/dL (74-99); Magnesium 2.3 mg/dL (1.6-2.3); Phosphorus 2.9 mg/dL (2.5-4.5); Potassium 4.7 mmol/L (3.5-5.1); Sodium 139 mmol/L (137-145)
--- NOTE | 2018-01-14 11:07 | P.PN ---
Subjective Progress Note Date: 01/14/18 Principal diagnosis: Respiratory failure/pneumonia Progress note dated 01/14/2018 This is a 53-year-old obese female with history of acute hypoxemic respiratory failure secondary to extensive bilateral infiltrates consistent with pneumonia. Anyway, the bronchoscopy and BAL did not reveal any specific pathogens other than Shae. The patient is doing much better. She was moved out of the ICU yesterday. She is down to 2 L. Her white count has recovered. Her lactic acidosis has resolved. She will discuss the bone marrow biopsy with her program engagement director. In addition to the above, the patient has a history of asthma hypertension diabetes morbid obesity chronic back pain GERD hypothyroidism anxiety depression and life time nonsmoker. Her breathing is much improved. She is not very short of breath. The patient only requiring a small amount of oxygen. She's recovered nicely from this acute illness. Objective - Vital Signs Vital signs: Vital Signs Temp 96.9 F L 01/14/18 07:00 Pulse 60 01/14/18 08:04 Resp 18 01/14/18 07:00 BP 139/79 01/14/18 07:00 Pulse Ox 92 L 01/14/18 07:00 Intake & Output 01/13/18 01/14/18 01/14/18 18:59 06:59 18:59 Intake Total 2036 703 Output Total 937 75 Balance 1099 628 Weight 136.7 kg Intake: IV 1436 103 0.9 for pressure bag 36 3 Meropenem 2 gm In Sodium 200 Chloride 0.9% 100 ml @ 200 mls/hr IVPB Q8HR [facility] Rx#:[id number] Sodium Chloride 0.9% 1, 1200 100 000 ml @ 100 mls/hr IV . Q10H [facility] Rx#:[id number] Oral 600 600 Output: Urine 937 75 Other: Voiding Method Indwelling Catheter # Voids 2 2 # Bowel Movements 2 ABP, PAP, CO, CI - Last Documented Arterial Blood Pressure 133/61 - Exam No acute distress, oriented 3. Nasal O2 in place. HEENT examination is grossly unremarkable. Mucous membranes are moist. No oral lesions. Neck supple. Full range of motion. No adenopathy thyromegaly or neck vein distention. Cardiovascular examination reveals regular rhythm rate. S1-S2 normal. No S3 or S4. No discernible murmur noted. Lungs reveal occasional bilateral rhonchi. Breath sounds equal. A few scattered crackles. Breath sounds equal bilaterally. Abdomen soft bowel sounds are heard. No masses or tenderness. Abdomen is obese. Extremities are intact. No cyanosis clubbing or edema. Skin is without rash or lesion. Neurologic examination is brief but nonfocal. - Labs CBC & Chem 7: 01/14/18 08:41 01/14/18 08:41 Labs: Abnormal Lab Results - Last 24 Hours (Table) 01/13/18 01/13/18 01/13/18 Range/Units 12:32 17:15 20:39 WBC (3.8-10.6) k/uL RBC (3.80-5.40) m/uL Hgb (11.4-16.0) gm/dL Hct (34.0-46.0) % BUN (7-17) mg/dL Glucose (74-99) mg/dL POC Glucose (mg/dL) 152 H 205 H 240 H (75-99) mg/dL Calcium (8.4-10.2) mg/dL 01/14/18 01/14/18 01/14/18 Range/Units 07:49 08:41 08:41 WBC 22.6 H (3.8-10.6) k/uL RBC 3.43 L (3.80-5.40) m/uL Hgb 10.5 L (11.4-16.0) gm/dL Hct 32.5 L (34.0-46.0) % BUN 31 H (7-17) mg/dL Glucose 125 H (74-99) mg/dL POC Glucose (mg/dL) 127 H (75-99) mg/dL Calcium 8.2 L (8.4-10.2) mg/dL Microbiology - Last 24 Hours (Table) 01/10/18 11:38 Fungal Culture - Preliminary Lung - Left Upper Lobe Shae albicans Assessment and Plan Assessment: Assessment Acute hypoxemic respiratory failure, thought to be related to acute pneumonia although bronchoscopy was negative other than for Shae. Hypoxemic respiratory failure, resolved Pancytopenia, status post bone marrow biopsy, to be discussed by the program engagement director to the patient Lactic acidosis, resolved Chronic bronchial asthma Hypertension Hyperlipidemia Diabetes mellitus Morbid obesity. Chronic back pain. GERD Hypothyroidism Anxiety/depression Plan: Plan dated 01/14/2018 The bone marrow biopsy will be discussed by the program engagement director directly to the patient. The patient's clinically doing much better. Chest x-ray is improved. Bronchoscopy and BAL is negative other than Shae. The patient remains on antibiotics oxygen therapy and bronchodilators. Oxygen has been weaned down to 2 L. Clinically the patient's doing much better. We'll continue to follow. Prognosis is guarded. Time with Patient: Less than 30
[2018-01-14 12:35] LABS: Glucose,Whole Blood 186 mg/dL (75-99)
[2018-01-14] MEDS: CYANOCOBALAMIN 500 MCG TAB PO SCH (12:53)
--- NOTE | 2018-01-14 13:12 | P.PN ---
Subjective Progress Note Date: 01/14/18 Progress note being dictated for Dr. Amos. Interval history: Patient is a 53-year-old male with a known history of hypertension, diabetes type II and previous history of diverticulitis came to ER with complaints of left-sided abdominal pain along with fever and chills worsening for the past 3 days. Patient was also having increased shortness of breath and chest pain with deep breathing. Patient does have cough but without much sputum production. No nausea vomiting. No diarrhea. Patient thought that she was having diverticulitis again and came to the hospital for further evaluation. Patient had diverticular [place] 2 months ago. Denied any sick contacts. No travel. Patient felt generally weak and generalized body aches. Patient was febrile on admission. Denies any leg swelling, back pain, peripheral paresthesias, headaches, sore throat, upper respiratory symptoms. T-max 101.8 Chest x-ray showed cardiomegaly and chronic changes without suspicious acute infiltrate. CT of abdomen pelvis showed new multifocal groundglass opacities in the lung base could reflect new multifocal pneumonia. Correlate clinically Attention to her uterus abnormal prominence of the central endometrium could reflect trapped fluid in the endometrial canal., Abnormal thickening cannot be excluded. Advise nonemergent pelvic ultrasound follow-up tofurther assess. Review of Systems Constitutional: Patient does have fever and chills and muscle aches and generalized body weakness Abdomen: Patient denied nausea vomiting. Patient does have abdominal pain. Cardiovascular: Patient denies any chest pain or short of breath no palpitations. Respiratory: Cough without sputum production. Patient does have shortness of breath Neurologic: Patient denied any numbness or tingling headache. Musculoskeletal: Patient denies any complaints of joint swelling or deformity. Skin: Negative Psychiatric: Negative Endocrine: No heat or cold intolerance. No recent weight gain. Genitourinary: No dysuria or hematuria. All other 14 point ROS negative except the above 01/06/2018 denies cough, desatted, maintaining O2 sats of 86-87% on 4 L nasal cannula, respiratory rate 20, tachycardic. ABGs ordered. Sitting up at side of bed, conversing without shortness of breath. Currently afebrile, T-max 101.1 , blood cultures pending.Denies chest pain, palpitations or increasing shortness of breath. Pancytopenia currently being worked up outpatient with Dr. Atkinson. 01/07/18 T-max 101.7.dyspnea continues ,currently maintaining O2 sats in the high 80s to low 90s on 10 L high flow nasal cannula O2 . Currently wearing 50% Ventimask. Short of breath with minimal exertion, limited reserve. CT reporting new extensive bilateral pulmonary airspace infiltrates compared to prior exam, acute pneumonia, increased paratracheal adenopathy. Mycoplasma IgM , Legionella urine antigen pending.Echo reporting low normal LV function, EF 50- 55%. Developed nosebleed earlier, subsided. Received Levaquin, now receiving Merrem. Infectious disease consulted. 01/08/2018 continues on high flow nasal cannula 10 L. chest x-ray with no significant change .afebrile, T-max 100.7. Steroids initiated yesterday, hyperglycemic. flow cytometry pathology reporting myeloid blasts with consideration of marrow examination. Mycoplasma IgM antibody and Legionella not detected. Multiple episodes of diarrhea reported. 01/09/2018 no overnight events, remains on 10 L high flow nasal cannula maintaining O2 sats in the high 80s to low 90s. Minimal sputum production. Afebrile, cultures currently negative. Scheduled for diagnostic bronchoscopy, bone marrow biopsy tomorrow. 01/10/2018 maintained on Merrem as per infectious disease. Afebrile, cultures negative. continues on 10 L high flow nasal cannula with current O2 sats in the mid 90s.NPO, awaiting bronchoscopy and bone marrow biopsy today. Denies chest pain, palpitations. 01/11/18 Patient was admitted with acute hypoxic respiratory failure and bilateral infiltrates consistent with pneumonia patient is being treated for healthcare associated pneumonia patient did not have any significant improvement because of which patient underwent bronchoscopy which did not show any significant past. There is a concern about hematologic malignancy because of which patient the had a biopsy of the bone marrow. Patient has significant bladder blast cells in the peripheral smear. Because of which we believe patient is immunosuppressive patient may have Pneumocystis carinii pneumonia or a fungal pneumonia. Patient was intubated SA they're able to extubate the patient today patient is on aspirin cannula oxygen. Patient is presently on meropenem Is presently on 8 L of oxygen 01/12/2018 Patient remains on meropenem all the workup from bronchial lower lobe large remains negative patient is on 10 L of onset at this time aspirin cultures is showing Shae although we do not believe it's significant. Autoimmune workup is being guarded Constitutional: Denied any fatigue denied any fever. Cardio vascular: denied any chest pain, palpitations Gastrointestinal denied any nausea vomiting Pulmonary: Denied any shortness of breath cough Neurologic denied any new focal deficits 01/13/18 chest x-ray reporting stable chronic changes, pneumonia versus CHF. Maintained on Merrem. Afebrile, preliminary bronch cultures negative. Bone marrow biopsy results pending. WBC improving, up to 10.9. Weaned down to 3 L nasal cannula O2. 01/14/2018 breathing significantly improved, transferred out of ICU to MedSurg unit. Oxygen weaned down to 2 L nasal cannula, maintaining O2 sats of 92%. Bronchoscopy cultures reporting Shae, cytology reporting no cytologically malignant cells.Awaiting to discuss bone marrow biopsy results with oncology/hematology. Sitting up in chair, denies increase in shortness of breath, no chest pain, no palpitations. Objective - Vital Signs Vital signs: Vital Signs Temp 96.9 F L 01/14/18 07:00 Pulse 60 01/14/18 08:04 Resp 18 01/14/18 07:00 BP 139/79 01/14/18 07:00 Pulse Ox 92 L 01/14/18 07:00 Intake & Output 01/13/18 01/14/18 01/14/18 18:59 06:59 18:59 Intake Total 2036 703 Output Total 937 75 Balance 1099 628 Weight 136.7 kg Intake: IV 1436 103 0.9 for pressure bag 36 3 Meropenem 2 gm In Sodium 200 Chloride 0.9% 100 ml @ 200 mls/hr IVPB Q8HR [facility] Rx#:[id number] Sodium Chloride 0.9% 1, 1200 100 000 ml @ 100 mls/hr IV . Q10H [facility] Rx#:[id number] Oral 600 600 Output: Urine 937 75 Other: Voiding Method Indwelling Catheter # Voids 2 2 # Bowel Movements 2 ABP, PAP, CO, CI - Last Documented Arterial Blood Pressure 133/61 - Exam PHYSICAL EXAMINATION: GENERAL: The patient is alert and oriented x3, not in any acute distress. HEENT: Pupils are round and equally reacting to light. EOMI. No scleral icterus. No conjunctival pallor. Normocephalic, atraumatic. Oral mucosa moist CARDIOVASCULAR: S1 and S2 present. No murmurs, rubs, or gallops. PULMONARY: Bilateral bases diminished, occasional fine bibasilar crackles, no rhonchi, no wheezes ABDOMEN: Soft, nontender, nondistended, normoactive bowel sounds. No palpable organomegaly. MUSCULOSKELETAL: No joint swelling or deformity. EXTREMITIES: No cyanosis, clubbing, mild pedal edema. NEUROLOGICAL: Gross neurological examination did not reveal any focal deficits. - Labs CBC & Chem 7: 01/14/18 08:41 01/14/18 08:41 Labs: Abnormal Lab Results - Last 24 Hours (Table) 01/13/18 01/13/18 01/13/18 Range/Units 12:32 17:15 20:39 WBC (3.8-10.6) k/uL RBC (3.80-5.40) m/uL Hgb (11.4-16.0) gm/dL Hct (34.0-46.0) % BUN (7-17) mg/dL Glucose (74-99) mg/dL POC Glucose (mg/dL) 152 H 205 H 240 H (75-99) mg/dL Calcium (8.4-10.2) mg/dL 01/14/18 01/14/18 01/14/18 Range/Units 07:49 08:41 08:41 WBC 22.6 H (3.8-10.6) k/uL RBC 3.43 L (3.80-5.40) m/uL Hgb 10.5 L (11.4-16.0) gm/dL Hct 32.5 L (34.0-46.0) % BUN 31 H (7-17) mg/dL Glucose 125 H (74-99) mg/dL POC Glucose (mg/dL) 127 H (75-99) mg/dL Calcium 8.2 L (8.4-10.2) mg/dL Microbiology - Last 24 Hours (Table) 01/10/18 11:38 Fungal Culture - Preliminary Lung - Left Upper Lobe Shae albicans Assessment and Plan Assessment: Sepsis secondary to acute bibasilar multifocal pneumonia, community-acquired, Mycoplasma IgM antibody and Legionella not detected. Bronchoscopy cultures reporting Shae. Acute hypoxic respiratory failure, bilateral infiltrates, possibly related to atypical pneumonia,fungal pneumonia, resolved. Lactic acidosis 2.1 admission resolved now Pancytopenia. Patient is being worked up for leukemia and Dr. Atkinson's office.flow cytometry pathology reporting myeloid blasts. Status post bone marrow biopsy Chronic bronchial asthma Hypertension Hyperlipidemia Hypothyroidism Chronic back pain Iron deficiency anemia Recent history of acute diverticulitis Anxiety and depression\ Morbid obesity with BMI 54.8 Diabetes mellitus, elevated hemoglobin A1c 7.8. Hyperglycemia, steroid- induced. Currently controlled Plan: Continue on current medication regime ,monitoring and symptomatic treatment. Antibiotics as per Infectious disease. Awaiting to discuss bone marrow biopsy results with Dr. Allen. Discharge planning for tomorrow. The impression and plan of care has been dictated as directed. : I performed a history and examination of this patient, discussed the same with the dictator. I agree with the dictator's note ,documented as a scribe. Any additional findings or plans will be noted.
[2018-01-14 14:13] LABS: INR 1.2 (<1.2); Prothrombin Time 11.3 sec (9.0-12.0)
[2018-01-14 17:16] LABS: Glucose,Whole Blood 224 mg/dL (75-99)
[2018-01-14] MEDS: SYMBICORT 160-4.5 MCG INHALER INHALATION SCH (20:23)
[2018-01-14] MEDS ORDERED: HYDROmorphone 4 MG TABLET PO PRN (20:41)
[2018-01-14 20:55] LABS: Glucose,Whole Blood 196 mg/dL (75-99)
[2018-01-14] MEDS: MONTELUKAST 10 MG TAB PO SCH (21:02)
[2018-01-14] MEDS: INSULIN DETEMIR 100 UNIT/ML 10 ML VIAL SQ SCH (21:09)
--- NOTE | 2018-01-14 21:17 | P.PN ---
Subjective Progress Note Date: 01/14/18 This is a 53-year-old female patient known to ID service as she was seen during her hospitalization in July of this year. At that time she was treated for acute asthma exacerbation complicated by influenza B tracheobronchitis. ID was consulted regarding a cellulitis of the lower extremities. Patient was discharged home on Keflex. Regarding her legs, patient states that they occasionally get red but not a significant problem at this time. Patient states that she has had for about the last month difficulty with ambulating very far and early fatigue and shortness of breath. She states she has been sick for about one week or more with fever and worsening shortness of breath along with cough. She came into [facility] emergency center and on CAT scan of the chest done on 01/06 showed new extensive bilateral pulmonary airspace infiltrate consistent with acute asthma. Increased hair a tracheal adenopathy. She was originally treated with Levaquin and has been switched over to meropenem by Dr. Rubalcava. Patient is also been febrile with pancytopenia. Mycoplasma pneumoniae IgM was normal and Legionella antigen was not detected. Flow cytology recommends consideration of a marrow examination. Consult has been added for oncology. Patient has had ongoing difficulty with hypoxia and remains on high flow nasal cannula at 10 L pulse oxing 86%. She states she becomes extremely winded is getting to the commode chair. Her course has been complicated by episode of epistaxis which is now controlled and also initially vomiting which is also been resolved. She does state that she has 4 episodes of diarrhea today. 01/10/2018 patient has had some progression of her status in that her pulmonary status has not improved and her leukopenia and anemia have worsened. She has been seen by both pulmonary critical care and oncology and constantly has now undergone a bronchoscopy and a bone marrow aspiration. She has respiratory failure and required ongoing mechanical ventilation after her bronchoscopy,is in the intensive care unit. She is sedated but not requiring vasopressor therapy. January 13 the patient has had significant improvement of her status. The patient has tolerated extubation and is now down to 2 L nasal cannula with adequate oxygenation. The levels improved. She is eating without great difficulties. Shortness of breath at rest is improved. Denies discomforts. She did have a bit of a nosebleed earlier that has resolved. Potentially also had some vaginal bleeding that is also improved. 01/14/2018 patient is feeling somewhat better but remains on supplemental oxygen because of her shortness of breath. Pneumonia seems to be improving with current therapy. She relates that diarrhea has improved other than her profound fatigue she is not having new acute symptoms. Appetite is adequate without nausea or emesis. Objective - Vital Signs Vital signs: Vital Signs Temp 97.9 F 01/14/18 14:39 Pulse 60 01/14/18 20:37 Resp 18 01/14/18 14:39 BP 119/79 01/14/18 14:39 Pulse Ox 92 L 01/14/18 14:39 Intake & Output 01/14/18 01/14/18 01/15/18 06:59 18:59 06:59 Intake Total 703 Output Total 75 Balance 628 Intake: IV 103 0.9 for pressure bag 3 Sodium Chloride 0.9% 1, 100 000 ml @ 100 mls/hr IV . Q10H STEPHEN Rx#:[id number] Oral 600 Output: Urine 75 Other: # Voids 2 1 # Bowel Movements 1 ABP, PAP, CO, CI - Last Documented Arterial Blood Pressure 133/61 - Exam Gen: This is a morbidly obese 53-year-old female. She is status post bronchoscopy as well as bone marrow aspiration. She required intubation for the bronchoscopy and she is now extubated and doing well. Sitting up in a chair and is comfortable HEENT: Head is atraumatic, normocephalic. Pupils equal, round. Sclerae is anicteric. Conjunctiva pink. Mucous members of the mouth are moist. No thrush noted. NECK: Supple. No JVD. No lymphadenopathy. No thyromegaly. LUNGS: Diminished bilaterally. No wheezes. Mild intercostal retractions. HEART: Regular rate and rhythm. No murmur. ABDOMEN: Soft. Bowel sounds are present. No masses. No tenderness. EXTREMITIES: Trace bilateral pedal edema. No calf tenderness. Dorsalis pedis + 2 bilaterally. NEUROLOGICAL: Awake alert oriented person place and time with no acute gross focal sensory motor deficits - Labs CBC & Chem 7: 01/14/18 08:41 01/14/18 08:41 Labs: Abnormal Lab Results - Last 24 Hours (Table) 01/14/18 01/14/18 01/14/18 Range/Units 07:49 08:41 08:41 WBC 22.6 H (3.8-10.6) k/uL RBC 3.43 L (3.80-5.40) m/uL Hgb 10.5 L (11.4-16.0) gm/dL Hct 32.5 L (34.0-46.0) % INR (<1.2) BUN 31 H (7-17) mg/dL Glucose 125 H (74-99) mg/dL POC Glucose (mg/dL) 127 H (75-99) mg/dL Calcium 8.2 L (8.4-10.2) mg/dL 01/14/18 01/14/18 01/14/18 Range/Units 12:32 12:55 17:02 WBC (3.8-10.6) k/uL RBC (3.80-5.40) m/uL Hgb (11.4-16.0) gm/dL Hct (34.0-46.0) % INR 1.2 H (<1.2) BUN (7-17) mg/dL Glucose (74-99) mg/dL POC Glucose (mg/dL) 186 H 224 H (75-99) mg/dL Calcium (8.4-10.2) mg/dL 01/14/18 Range/Units 20:54 WBC (3.8-10.6) k/uL RBC (3.80-5.40) m/uL Hgb (11.4-16.0) gm/dL Hct (34.0-46.0) % INR (<1.2) BUN (7-17) mg/dL Glucose (74-99) mg/dL POC Glucose (mg/dL) 196 H (75-99) mg/dL Calcium (8.4-10.2) mg/dL Laboratory Results WBC 22.6 k/uL (3.8-10.6) H 01/14/18 08:41 RBC 3.43 m/uL (3.80-5.40) L 01/14/18 08:41 Hgb 10.5 gm/dL (11.4-16.0) L 01/14/18 08:41 Hct 32.5 % (34.0-46.0) L 01/14/18 08:41 MCV 94.8 fL (80.0-100.0) 01/14/18 08:41 MCH 30.7 pg (25.0-35.0) 01/14/18 08:41 MCHC 32.4 g/dL (31.0-37.0) 01/14/18 08:41 RDW 14.8 % (11.5-15.5) 01/14/18 08:41 Plt Count 202 k/uL (150-450) 01/14/18 08:41 Neutrophils % (Manual) 19 % 01/13/18 04:00 Band Neutrophils % 1 % 01/13/18 04:00 Lymphocytes % (Manual) 27 % 01/13/18 04:00 Monocytes % (Manual) 50 % 01/13/18 04:00 Eosinophils % (Manual) 1 % 01/13/18 04:00 Basophils % (Manual) 1 % 01/05/18 08:50 Metamyelocytes % 2 % 01/13/18 04:00 Myelocytes % 1 % 01/13/18 04:00 Blast Cells % 1 % 01/13/18 04:00 Neutrophils # (Manual) 2.10 k/uL (1.3-7.7) 01/13/18 04:00 Lymphocytes # (Manual) 2.94 k/uL (1.0-4.8) 01/13/18 04:00 Monocytes # (Manual) 5.45 k/uL (0-1.0) H 01/13/18 04:00 Eosinophils # (Manual) 0.11 k/uL (0-0.7) 01/13/18 04:00 Basophils # (Manual) 0.03 k/uL (0-0.2) 01/05/18 08:50 Metamyelocytes # (Man) 0.22 k/uL (0) H 01/13/18 04:00 Myelocytes # (Manual) 0.11 k/uL (0) H 01/13/18 04:00 Blast Cells # (Man) 0.11 k/uL (0) H 01/13/18 04:00 Nucleated RBCs 0 /100 WBC (0-0) 01/13/18 04:00 Manual Slide Review Performed 01/12/18 04:39 Pathologist Review See comment A 01/05/18 08:50 RBC Morphology Normal 01/13/18 04:00 Hypochromasia (manual) Present 01/11/18 04:15 Poikilocytosis (manual Present 01/11/18 04:15 Macrocytosis Slight 01/10/18 08:08 PT 11.3 sec (9.0-12.0) 01/14/18 12:55 INR 1.2 (<1.2) H 01/14/18 12:55 APTT 22.2 sec (22.0-30.0) 01/04/18 20:00 Sample Site kathi 01/10/18 14:10 ABG pH 7.32 (7.35-7.45) L 01/10/18 14:10 ABG pCO2 55 mmHg (35-45) H 01/10/18 14:10 ABG pO2 106 mmHg (83-108) 01/10/18 14:10 ABG HCO3 28 mmol/L (21-25) H 01/10/18 14:10 ABG Total CO2 30 mmol/L (19-24) H 01/10/18 14:10 ABG O2 Saturation 97.9 % (94-97) H 01/10/18 14:10 ABG Base Excess 2.3 mmol/L 01/10/18 14:10 Bk Test no 01/10/18 14:10 FiO2 100 % 01/10/18 14:10 Sodium 139 mmol/L (137-145) 01/14/18 08:41 Potassium 4.7 mmol/L (3.5-5.1) 01/14/18 08:41 Chloride 105 mmol/L (98-107) 01/14/18 08:41 Carbon Dioxide 27 mmol/L (22-30) 01/14/18 08:41 Anion Gap 7 mmol/L 01/14/18 08:41 BUN 31 mg/dL (7-17) H 01/14/18 08:41 Creatinine 0.68 mg/dL (0.52-1.04) 01/14/18 08:41 Est GFR (CKD-EPI)AfAm >90 (>60 ml/min/1.73 sqM) 01/14/18 08:41 Est GFR (CKD-EPI)NonAf >90 (>60 ml/min/1.73 sqM) 01/14/18 08:41 Glucose 125 mg/dL (74-99) H 01/14/18 08:41 POC Glucose (mg/dL) 196 mg/dL (75-99) H 01/14/18 20:54 POC Glu Smoking Pipe Repairer ID Kary De Los Santos 01/14/18 20:[address] Glu mg/dL 177 01/05/18 08:50 Hemoglobin A1c 7.8 % (4.0-6.0) H 01/05/18 08:50 Lactic Ac Sepsis Rflx Y 01/04/18 20:51 Plasma Lactic Acid [place] 0.8 mmol/L (0.7-2.0) 01/04/18 23:55 Calcium 8.2 mg/dL (8.4-10.2) L 01/14/18 08:41 Phosphorus 2.9 mg/dL (2.5-4.5) 01/14/18 08:41 Magnesium 2.3 mg/dL (1.6-2.3) 01/14/18 08:41 Total Bilirubin 1.1 mg/dL (0.2-1.3) 01/04/18 20:00 AST 28 U/L (14-36) 01/04/18 20:00 ALT 33 U/L (9-52) 01/04/18 20:00 Alkaline Phosphatase 82 U/L (38-126) 01/04/18 20:00 Total Creatine Kinase 49 U/L (30-135) 01/04/18 20:00 CK-MB (CK-2) <0.2 ng/mL (0.0-2.4) 01/04/18 20:00 CK-MB (CK-2) Rel Index 01/04/18 20:00 Troponin I <0.012 ng/mL (0.000-0.034) 01/04/18 20:00 NT-Pro-B Natriuret Pep 576 pg/mL 01/06/18 08:35 Total Protein 7.2 g/dL (6.3-8.2) 01/04/18 20:00 Albumin 4.1 g/dL (3.5-5.0) 01/04/18 20:00 Angiotensin Convert Enz 29 U/L (8-52) 01/12/18 04:39 Urine Color Yellow 01/04/18 20:00 Urine Appearance Clear (Clear) 01/04/18 20:00 Urine pH 7.0 (5.0-8.0) 01/04/18 20:00 Ur Specific [place] 1.010 (1.001-1.035) 01/04/18 20:00 Urine Protein Negative (Negative) 01/04/18 20:00 Urine Glucose (UA) Negative (Negative) 01/04/18 20:00 Urine Ketones Negative (Negative) 01/04/18 20:00 Urine Blood Negative (Negative) 01/04/18 20:00 Urine Nitrite Negative (Negative) 01/04/18 20:00 Urine Bilirubin Negative (Negative) 01/04/18 20:00 Urine Urobilinogen <2.0 mg/dL (<2.0) 01/04/18 20:00 Ur Leukocyte Esterase Negative (Negative) 01/04/18 20:00 Fluid Source Bronchial Wash 01/10/18 11:38 Fluid Color Colorless 01/10/18 11:38 Fluid Appearance Blood Tinged 01/10/18 11:38 Fluid RBC 680 /uL 01/10/18 11:38 Fluid Nucleated Cells 20 /uL 01/10/18 11:38 Fluid Polynuclear WBCs 64 % 01/10/18 11:38 Fluid Mononuclear WBCs 35 % 01/10/18 11:38 Fluid Eosinophils 1 % 01/10/18 11:38 c-ANCA <1:20 Titer (<1:20) 01/12/18 04:39 p-ANCA <1:20 Titer (<1:20) 01/12/18 04:39 Urine Legionella Ag Not detected (Not detected) 01/06/18 16:51 Mycoplasma pneumon IgM 0.22 INDEX (<=0.90) 01/06/18 08:35 Virus Source See Below 01/10/18 11:38 Viral Test See Below 01/10/18 11:38 Virus Analysis Interp See Below 01/10/18 11:38 Flow Results See Pathology Report 01/05/18 08:50 Miscellaneous Test Aspergillus Ag,BAL 01/10/18 11:38 Misc Test Result See comment 01/10/18 11:38 Microbiology 01/10/18 11:38 Lung - Left Upper Lobe Fungal Culture - Preliminary Shae albicans 01/06/18 18:42 Blood Blood Culture - Final No Growth after 144 hours 01/06/18 18:20 Blood Blood Culture - Final No Growth after 144 hours 01/10/18 11:38 Bronchial Washings - Left Gram Stain - Final 01/10/18 11:38 Bronchial Washings - Left Bronchial Washings Culture - Final Shae albicans 01/10/18 08:00 Sputum Gram Stain - Final 01/10/18 08:00 Sputum Sputum Culture - Final Shae albicans 01/10/18 11:38 Lung - Left Upper Lobe Acid Fast Bacilli Smear - Final 01/10/18 11:38 Lung - Left Upper Lobe Acid Fast Bacilli Culture - Preliminary 01/04/18 20:00 Blood Blood Culture - Final No Growth after 144 hours 01/04/18 20:00 Urine,Voided Urine Culture - Final Assessment and Plan (1) Pneumonia Narrative/Plan: This pleasant 53-year-old woman is have underlying asthma and last time she was ill she had cellulitis prior to that she had influenza B and exacerbation of her asthma. Now presents with progressive acute illness. Has been seen in the outpatient setting by oncology because of leukopenia. Workup had been started. Patient is not having difficulties with worsening leukopenia anemia and bleeding. She remains acutely ill with pneumonia and is also having difficulties with diarrhea. The patient has now been seen again by oncology and the peripheral smear is markedly abnormal with blasts that are evident and consequently they are planning for the bone marrow biopsy and aspirate as soon as they possibly can. At this time she is on broad-spectrum antibiotic therapy. Her fevers are controlled and she is stable. Certainly if she has acute leukemia will be worried about an Aspergillus infection. Galactomannan antigen testing is requested at this time to guide treatment. 01/10/2018 the patient is now status post bronchoscopy and has remained intubated sedated and mechanically ventilated, bone marrow aspiration also performed. Findings the bronchoscopy to further help direct antimicrobial therapy including the potential addition of antifungal therapy for Aspergillus. She fortunately is quite comfortable at this point in time. She is profoundly ill and await the bone marrow results determine if there is a significant derangement of the bone marrow. Is on Merrem and is not febrile but has progressive leukopenia. 01/13/2018 the patient is now markedly improved such that she is extubated sitting upright in a chair and has had her meal without difficulties. Bronchoscopy was performed and she did require transient intubation, since extubation she is feeling better. Respiratory status improved. She is titrated to 2 liters nasal cannula and does not feel short of breath at rest. Does not have any significant new discomforts. The bone marrow aspiration results remain pending, peripheral blood showed about 10% blast, and now 55% monocytes. The oncology input is also pending at this time. We'll complete 7 days of meropenem. A fungal evaluation does not reveal evidence of aspergillosis, she is also negative for Legionella and Mycoplasma. 01/14/2018 patient remains improved but is still quite short of breath with activity requiring O2 to ambulate. However she certainly has had improvement of her respiratory status. Cultures are negative so far. The case is discussed with the oncologist, the bone marrow aspiration is still pending at this point in time but they agree that there is evidence of blasts in many monocytes that are atypical and concerns for underlying myelomonocytic disease. Hopefully this will be back in the morning and they can discuss with her the plan for treatment. As noted 7 days of meropenem are being requested to complete the treatment of her pneumonia is allowed a marked improvement. Aspergillus testing is negative by BAL, Aspergillus antigen and galactomannan testing. Current Visit: Yes Status: Acute Code(s): J18.9 - PNEUMONIA, UNSPECIFIED ORGANISM SNOMED Code(s): 992614394 (2) Pancytopenia Current Visit: Yes Status: Acute Priority: High Code(s): D61.818 - OTHER PANCYTOPENIA SNOMED Code(s): 662640473 (3) Obesity, Class III, BMI 40-49.9 (morbid obesity) Current Visit: No Status: Acute Code(s): E66.01 - MORBID (SEVERE) OBESITY DUE TO EXCESS CALORIES SNOMED Code(s): 768972848
[2018-01-14] MEDS: ZOLPIDEM 10 MG TAB PO SCH (23:03)
[2018-01-15] MEDS: LEVOTHYROXINE 125 MCG TAB PO SCH (06:28)
[2018-01-15 07:19] LABS: Glucose,Whole Blood 83 mg/dL (75-99)
[2018-01-15] MEDS: INSULIN ASPART 100 UNIT/ML 1 ML 10 ML VIAL SQ SCH ×7 (08:10→21:38)
[2018-01-15] MEDS: HEPARIN SODIUM,PORCINE 5,000 UNIT/ML 1 ML VIAL SQ SCH ×2 (08:11→16:17)
[2018-01-15] MEDS: FLUTICASONE 50MCG/SPRAY NASAL 16GM EA NOSTRIL SCH (08:12)
[2018-01-15] MEDS: MEROPENEM 2 GM in SODIUM CHLORIDE 0.9% 100 ML IVPB SCH ×2 (08:12→16:17)
[2018-01-15] MEDS: LORATADINE 10 MG TAB PO SCH (08:13)
[2018-01-15] MEDS: PANTOPRAZOLE 40 MG/10 ML VIAL IV SCH (08:13)
[2018-01-15] MEDS: GABAPENTIN 300 MG CAP PO SCH ×3 (08:13→21:34)
[2018-01-15] MEDS: predniSONE 10 MG TAB PO SCH (08:14)
[2018-01-15] MEDS: CALCIUM CARB-VIT D 500MG-200UN 1 EACH TAB PO SCH (08:14)
[2018-01-15] MEDS: FERROUS SULFATE 325 MG TAB PO SCH (08:14)
[2018-01-15] MEDS: ATORVASTATIN 20 MG TAB PO SCH (08:14)
[2018-01-15] MEDS: ESCITALOPRAM 10 MG TAB PO SCH (08:14)
[2018-01-15] MEDS: POTASSIUM CHLORIDE ER 20 MEQ TAB.ER PO SCH ×2 (08:14→21:34)
[2018-01-15] MEDS: ASPIRIN 81 MG PO SCH (08:14)
[2018-01-15] MEDS: NYSTATIN 100,000 UNIT/ML SUSP 500,000 UNIT/5 ML CUP PO SCH ×4 (08:15→21:34)
[2018-01-15] MEDS: METOPROLOL TARTRATE 50 MG TAB PO SCH ×2 (08:15→21:34)
[2018-01-15] MEDS: SODIUM CHLORIDE 0.9% 1,000 ML IV SCH ×2 (08:18→21:38)
[2018-01-15] MEDS: SYMBICORT 160-4.5 MCG INHALER INHALATION SCH ×2 (08:34→20:00)
[2018-01-15] MEDS: IPRATROPIUM-ALBUTEROL 3 ML NEB INHALATION PRN ×3 (08:34→20:00)
--- NOTE | 2018-01-15 09:13 | P.PN ---
Subjective Progress Note Date: 01/15/18 Principal diagnosis: Respiratory failure/pneumonia Progress note dated 01/14/2018 This is a 53-year-old obese female with history of acute hypoxemic respiratory failure secondary to extensive bilateral infiltrates consistent with pneumonia. Anyway, the bronchoscopy and BAL did not reveal any specific pathogens other than Shae. The patient is doing much better. She was moved out of the ICU yesterday. She is down to 2 L. Her white count has recovered. Her lactic acidosis has resolved. She will discuss the bone marrow biopsy with her catering barista. In addition to the above, the patient has a history of asthma hypertension diabetes morbid obesity chronic back pain GERD hypothyroidism anxiety depression and life time nonsmoker. Her breathing is much improved. She is not very short of breath. The patient only requiring a small amount of oxygen. She's recovered nicely from this acute illness. Progress note dated 01/15/2018 53-year-old female admitted with a diagnosis of acute hypoxemic respiratory failure secondary to extensive bilateral pneumonia. The patient is status post bronchoscopy and BAL. So far all culture data is negative. She was moved out of the ICU a couple days ago. She is awaiting the results of the bone marrow biopsy ordered by her primary physician. It is to be reviewed by the oncologist and catering barista. She has a history of obesity, asthma, hypertension , diabetes, chronic back pain, GERD, hypothyroidism, anxiety, depression, and she is a lifelong nonsmoker. There is no new x-ray to look at, no new labs to report, and microbiology is still negative other than Shae. Objective - Vital Signs Vital signs: Vital Signs Temp 97.3 F L 01/15/18 06:34 Pulse 60 01/15/18 08:46 Resp 16 01/15/18 06:34 BP 139/73 01/15/18 06:34 Pulse Ox 92 L 01/15/18 06:34 Intake & Output 01/14/18 01/15/18 01/15/18 18:59 06:59 18:59 Other: Voiding Method Toilet Bedside Commode # Voids 1 2 # Bowel Movements 1 1 ABP, PAP, CO, CI - Last Documented Arterial Blood Pressure 133/61 - Exam No acute distress, oriented 3. Nasal O2 in place. HEENT examination is grossly unremarkable. Mucous membranes are moist. No oral lesions. Neck supple. Full range of motion. No adenopathy thyromegaly or neck vein distention. Cardiovascular examination reveals regular rhythm rate. S1-S2 normal. No S3 or S4. No discernible murmur noted. Lungs reveal occasional bilateral rhonchi. Breath sounds equal. A few scattered crackles. Breath sounds equal bilaterally. Abdomen soft bowel sounds are heard. No masses or tenderness. Abdomen is obese. Extremities are intact. No cyanosis clubbing or edema. Skin is without rash or lesion. Neurologic examination is brief but nonfocal. - Labs CBC & Chem 7: 01/14/18 08:41 01/14/18 08:41 Labs: Abnormal Lab Results - Last 24 Hours (Table) 01/14/18 01/14/18 01/14/18 Range/Units 08:41 08:41 12:32 WBC 22.6 H (3.8-10.6) k/uL RBC 3.43 L (3.80-5.40) m/uL Hgb 10.5 L (11.4-16.0) gm/dL Hct 32.5 L (34.0-46.0) % INR (<1.2) BUN 31 H (7-17) mg/dL Glucose 125 H (74-99) mg/dL POC Glucose (mg/dL) 186 H (75-99) mg/dL Calcium 8.2 L (8.4-10.2) mg/dL 01/14/18 01/14/18 01/14/18 Range/Units 12:55 17:02 20:54 WBC (3.8-10.6) k/uL RBC (3.80-5.40) m/uL Hgb (11.4-16.0) gm/dL Hct (34.0-46.0) % INR 1.2 H (<1.2) BUN (7-17) mg/dL Glucose (74-99) mg/dL POC Glucose (mg/dL) 224 H 196 H (75-99) mg/dL Calcium (8.4-10.2) mg/dL Assessment and Plan Assessment: Assessment Acute hypoxemic respiratory failure, thought to be related to acute pneumonia although bronchoscopy was negative other than for Shae. Hypoxemic respiratory failure, resolved Pancytopenia, status post bone marrow biopsy, to be discussed by the catering barista to the patient Lactic acidosis, resolved Chronic bronchial asthma Hypertension Hyperlipidemia Diabetes mellitus Morbid obesity. Chronic back pain. GERD Hypothyroidism Anxiety/depression Plan: Plan dated 01/14/2018 The bone marrow biopsy will be discussed by the catering barista directly to the patient. The patient's clinically doing much better. Chest x-ray is improved. Bronchoscopy and BAL is negative other than Shae. The patient remains on antibiotics oxygen therapy and bronchodilators. Oxygen has been weaned down to 2 L. Clinically the patient's doing much better. We'll continue to follow. Prognosis is guarded. Plan dated 01/14/2018 From my perspective, the patient could be discharged. She is resting comfortably. She's been weaned down to just a couple liters by nasal cannula. She may have to go home on oxygen therapy. No new labs or x-rays to report. Microbiology is still negative other than Shae and the bronchial washings. We'll await input by hematology and infectious diseases. I'm concerned that the longer she stays here, the more likely she'll have a nosocomial complication such as C. difficile colitis or a resistant infection/nosocomial infection. Time with Patient: Less than 30
[2018-01-15] MEDS: FUROSEMIDE 10 MG/ML 2 ML VIAL IV SCH ×2 (09:50→21:38)
[2018-01-15] MEDS: busPIRone HCl 5 MG TAB PO SCH ×2 (09:50→21:34)
[2018-01-15 10:07] LABS: Anion Gap 6 mmol/L; Blood Urea Nitrogen 29 mg/dL (7-17); Carbon Dioxide 26 mmol/L (22-30); Chloride 109 mmol/L (98-107); Glucose 122 mg/dL (74-99); Magnesium 2.2 mg/dL (1.6-2.3); Phosphorus 3.2 mg/dL (2.5-4.5); Sodium 141 mmol/L (137-145)
[2018-01-15 10:16] LABS: HCT 33.9 % (34.0-46.0); HGB 10.7 gm/dL (11.4-16.0); MCH 30.5 pg (25.0-35.0); MCHC 31.7 g/dL (31.0-37.0); MCV 96.5 fL (80.0-100.0); Platelet Count 201 k/uL (150-450); RBC 3.52 m/uL (3.80-5.40)
[2018-01-15 10:20] LABS: WBC 28.1 k/uL (3.8-10.6)
[2018-01-15 11:24] LABS: Band Neutrophils % 1 %; Blast Cells # (M) 0.56 k/uL (0); Monocytes # (M) 20.51 k/uL (0-1.0); Neutrophils % (M) 9 %; Nucleated Red Blood Cells 0 /100 WBC (0-0); Promyelocytes # (M) 0.28 k/uL (0); Promyelocytes % 1 %; Total Cells Counted 200
[2018-01-15 11:26] LABS: Anisocytosis (M) Present; Poikilocytosis (M) Present
[2018-01-15 12:12] LABS: Glucose,Whole Blood 119 mg/dL (75-99)
[2018-01-15] MEDS: CYANOCOBALAMIN 500 MCG TAB PO SCH (13:25)
--- NOTE | 2018-01-15 16:19 | P.PN ---
Subjective Patient was admitted with acute hypoxic respiratory failure and bilateral infiltrates consistent with pneumonia patient is being treated for healthcare associated pneumonia patient did not have any significant improvement because of which patient underwent bronchoscopy which did not show any significant past. There is a concern about hematologic malignancy because of which patient the had a biopsy of the bone marrow. Patient has significant bladder blast cells in the peripheral smear. Because of which we believe patient is immunosuppressive patient may have Pneumocystis carinii pneumonia or a fungal pneumonia. Patient was intubated SA they're able to extubate the patient today patient is on aspirin cannula oxygen. Patient is presently on meropenem Is presently on 8 L of oxygen 01/12/2018 Patient remains on meropenem all the workup from bronchial lower lobe large remains negative patient is on 10 L of onset at this time aspirin cultures is showing Shae although we do not believe it's significant. Autoimmune workup is negative 01/15/2018 Patient is clinically doing well is on 2 L of oxygen will obtain PT and OT consultation possibility of discharge tomorrow all the workup is negative unsure of the exact etiology of acute lung injury can be related to atypical pneumonia followed by acute lung injury or acute lung injury can be secondary to acute leukemia as well. Constitutional: Denied any fatigue denied any fever. Cardio vascular: denied any chest pain, palpitations Gastrointestinal denied any nausea vomiting Pulmonary: Denied any shortness of breath cough Neurologic denied any new focal deficits Objective - Vital Signs Vital signs: Vital Signs Temp 97.0 F L 01/15/18 15:00 Pulse 68 01/15/18 15:00 Resp 20 01/15/18 15:00 BP 114/62 01/15/18 15:00 Pulse Ox 92 L 01/15/18 15:00 Intake & Output 01/14/18 01/15/18 01/15/18 18:59 06:59 18:59 Other: Voiding Method Toilet Bedside Commode # Voids 1 2 3 # Bowel Movements 1 1 1 ABP, PAP, CO, CI - Last Documented Arterial Blood Pressure 133/61 - Exam PHYSICAL EXAMINATION: GENERAL: The patient is alert and oriented x3, not in any acute distress. Well developed, well nourished. HEENT: Pupils are round and equally reacting to light. EOMI. No scleral icterus. No conjunctival pallor. Normocephalic, atraumatic. No pharyngeal erythema. No thyromegaly. CARDIOVASCULAR: S1 and S2 present. No murmurs, rubs, or gallops. PULMONARY: Chest is clear to auscultation, no wheezing or crackles. ABDOMEN: Soft, nontender, nondistended, normoactive bowel sounds. No palpable organomegaly. MUSCULOSKELETAL: No joint swelling or deformity. EXTREMITIES: No cyanosis, clubbing, or pedal edema. NEUROLOGICAL: Gross neurological examination did not reveal any focal deficits. SKIN: No rashes. - Labs CBC & Chem 7: 01/15/18 08:45 01/15/18 08:45 Labs: Abnormal Lab Results - Last 24 Hours (Table) 01/14/18 01/14/18 01/15/18 Range/Units 17:02 20:54 08:45 WBC 28.1 H* (3.8-10.6) k/uL RBC 3.52 L (3.80-5.40) m/uL Hgb 10.7 L (11.4-16.0) gm/dL Hct 33.9 L (34.0-46.0) % Monocytes # (Manual) 20.51 H (0-1.0) k/uL Promyelocytes # (Man) 0.28 H (0) k/uL Blast Cells # (Man) 0.56 H (0) k/uL Chloride (98-107) mmol/L BUN (7-17) mg/dL Glucose (74-99) mg/dL POC Glucose (mg/dL) 224 H 196 H (75-99) mg/dL Calcium (8.4-10.2) mg/dL 01/15/18 01/15/18 Range/Units 08:45 11:51 WBC (3.8-10.6) k/uL RBC (3.80-5.40) m/uL Hgb (11.4-16.0) gm/dL Hct (34.0-46.0) % Monocytes # (Manual) (0-1.0) k/uL Promyelocytes # (Man) (0) k/uL Blast Cells # (Man) (0) k/uL Chloride 109 H (98-107) mmol/L BUN 29 H (7-17) mg/dL Glucose 122 H (74-99) mg/dL POC Glucose (mg/dL) 119 H (75-99) mg/dL Calcium 8.0 L (8.4-10.2) mg/dL Assessment and Plan Plan: -Acute hypoxic respiratory failure: With bilateral infiltrates possible etiologies being atypical pneumonia fungal pneumonia. Patient is presently on meropenem, infectious disease is following the patient patient most probably has acute lung injury or inflammatory reaction to secondary to probably atypical pneumonia and/or acute leukemia patient has significant improvement is also on steroids. Possibly of discharge tomorrow -Possibility of acute leukemia status post bone marrow biopsy patient has pancytopenia and blasts cells -Sepsis on admission with lactic acidosis which improved patient had fever on admission as well -Chronic bronchial asthma: Continue with systemic steroids inhalational treatments -Hypertension -Hyperlipidemia -Type 2 diabetes mellitus uncontrolled blood sugars due to systemic steroids, dose of Levemir is being increased -Morbid obesity -Chronic low back pain -Gastroesophageal reflux disease -Hypothyroidism -Anxiety and depression
[2018-01-15 17:23] LABS: Glucose,Whole Blood 136 mg/dL (75-99)
[2018-01-15] MEDS ORDERED: ZOLPIDEM 10 MG TAB ONE (21:00)
[2018-01-15 21:13] LABS: Glucose,Whole Blood 144 mg/dL (75-99)
[2018-01-15] MEDS: MONTELUKAST 10 MG TAB PO SCH (21:34)
[2018-01-15] MEDS: INSULIN DETEMIR 100 UNIT/ML 10 ML VIAL SQ SCH (21:35)
[2018-01-16] MEDS: LEVOTHYROXINE 125 MCG TAB PO SCH (06:48)
[2018-01-16] MEDS: SYMBICORT 160-4.5 MCG INHALER INHALATION SCH ×2 (07:34→21:08)
[2018-01-16] MEDS: IPRATROPIUM-ALBUTEROL 3 ML NEB INHALATION PRN (07:34)
[2018-01-16] MEDS: ZOLPIDEM 10 MG TAB PO SCH ×2 (07:57→23:14)
[2018-01-16] MEDS: SODIUM CHLORIDE 0.9% 1,000 ML IV SCH ×3 (07:58→23:14)
[2018-01-16] MEDS: HEPARIN SODIUM,PORCINE 5,000 UNIT/ML 1 ML VIAL SQ SCH ×4 (07:58→23:28)
[2018-01-16] MEDS: MEROPENEM 2 GM in SODIUM CHLORIDE 0.9% 100 ML IVPB SCH ×4 (07:58→23:16)
[2018-01-16] MEDS: INSULIN ASPART 100 UNIT/ML 1 ML 10 ML VIAL SQ SCH ×7 (07:59→23:15)
[2018-01-16 08:05] LABS: INR 1.1 (<1.2); Partial Thromboplastin Time 22.6 sec (22.0-30.0); Prothrombin Time 10.6 sec (9.0-12.0)
[2018-01-16] MEDS: PANTOPRAZOLE 40 MG/10 ML VIAL IV SCH (08:13)
[2018-01-16] MEDS: NYSTATIN 100,000 UNIT/ML SUSP 500,000 UNIT/5 ML CUP PO SCH ×4 (08:13→21:25)
[2018-01-16] MEDS: ESCITALOPRAM 10 MG TAB PO SCH (08:13)
[2018-01-16] MEDS: FUROSEMIDE 10 MG/ML 2 ML VIAL IV SCH ×2 (08:13→21:24)
[2018-01-16] MEDS: FLUTICASONE 50MCG/SPRAY NASAL 16GM EA NOSTRIL SCH (08:13)
[2018-01-16] MEDS: FERROUS SULFATE 325 MG TAB PO SCH (08:13)
[2018-01-16] MEDS: LORATADINE 10 MG TAB PO SCH (08:14)
[2018-01-16] MEDS: ASPIRIN 81 MG PO SCH (08:14)
[2018-01-16] MEDS: METOPROLOL TARTRATE 50 MG TAB PO SCH ×2 (08:14→21:20)
[2018-01-16] MEDS: CALCIUM CARB-VIT D 500MG-200UN 1 EACH TAB PO SCH (08:14)
[2018-01-16] MEDS: POTASSIUM CHLORIDE ER 20 MEQ TAB.ER PO SCH ×2 (08:14→21:20)
[2018-01-16] MEDS: GABAPENTIN 300 MG CAP PO SCH ×3 (08:14→21:24)
[2018-01-16] MEDS: busPIRone HCl 5 MG TAB PO SCH ×2 (08:14→21:20)
[2018-01-16] MEDS: predniSONE 10 MG TAB PO SCH (08:14)
[2018-01-16] MEDS: ATORVASTATIN 20 MG TAB PO SCH (08:14)
[2018-01-16 08:23] LABS: Glucose,Whole Blood 67 mg/dL (75-99)
[2018-01-16 08:23] LABS: Glucose,Whole Blood 84 mg/dL (75-99)
[2018-01-16 08:23] LABS: Glucose,Whole Blood 63 mg/dL (75-99)
[2018-01-16 12:23] LABS: Glucose,Whole Blood 140 mg/dL (75-99)
--- NOTE | 2018-01-16 12:54 | XR ---
EXAMINATION TYPE: XR chest 2V DATE OF EXAM: 01/16/2018 COMPARISON: 01/13/2018 TECHNIQUE: PA and lateral views submitted. HISTORY: Shortness of breath FINDINGS: Diffuse pleural-parenchymal changes are stable. Left-sided PICC line noted. Cardiomegaly st able. No sizable pneumothorax. Hypertrophic and degenerative change of the spine. IMPRESSION: Stable chronic pleural-parenchymal changes. Pneumonia versus CHF.
[2018-01-16] MEDS: CYANOCOBALAMIN 500 MCG TAB PO SCH (12:57)
--- NOTE | 2018-01-16 13:57 | P.PN ---
Subjective Progress Note Date: 01/16/18 Principal diagnosis: Extensive multilobar nodular infiltrates, consistent with pneumonia, acute hypoxic respiratory failure Mrs. Brunner is a 53-year-old white female patient of Dr. Nikki Soto who presented to the hospital on 01/04/2018 at 1936 with complaints of a history fever, chills, increasing shortness of breath. She denied any cough, she denied any chest congestion, or wheezing. Has a known history of bronchial asthma, and her last hospitalization was back in August for acute asthma exacerbation secondary to acute influenza B tracheobronchitis and left lower leg cellulitis. Patient had recovered, and was doing well at home. She sees Dr. Dr. Hollingsworth in the pulmonary office for her history of bronchial asthma, and her most recent PFT showed an FEV1 of 68% of predicted, with a 9% improvement post bronchodilator treatment. This was an improvement from her PFT from 2017, which showed severe obstruction with FEV1 of 1.12 L of 43% of predicted, with improvement to 56% of predicted postbronchodilator treatment. Patient is on Singulair, Symbicort, Ventolin inhaler, in addition to Singulair, Claritin, and Flonase. Patient had never been intubated for asthma exacerbation, she is a lifetime nonsmoker, she is not sure what her triggers are. Prior to this episode, she used her rescue inhaler about once a week. Patient did have shaking chills at home, she was short of breath even walking to the bathroom. In the emergency department her initial temperature was 98.4, however through her stay in the hospital, she had been intermittently febrile with fevers as high as 103.4F. Normally does not wear oxygen at baseline, however today she became hypoxemic, with a pulse ox in the low 80s on room air, pulse ox on 4 L per nasal cannula was 86%. Patient also had some left lower quadrant discomfort , abdominal/pelvis CT was completed and showed abnormal prominence of central endometrium could represent trapped fluid in the endometrial canal, abnormal thickening could not be excluded, and nonemergent pelvic ultrasound was recommended. Multifocal groundglass opacities were noted in the lung bases. Chest x-ray showed cardiomegaly and chronic parenchymal changes without suspicious focal airspace opacity. This was compared the CT chest from 2017, which showed mild diffuse bronchial wall thickening persistent with a diagnosis of bronchitis and chronic asthma, and subtle multifocal patchy groundglass infiltrates and possible tree-in-bud densities in the right lower lobe, and distal small airways impaction with mucoid debris. At the time of the CT chest patient was completely asymptomatic. EKG showed normal sinus rhythm. Patient was started on empiric antibiotics in the form of Rocephin and azithromycin, and was admitted for further management. We were consulted today in regards to acute hypoxemic respiratory failure, stat blood gas was obtained on 10 L high flow, and it showed pO2 of 62, pCO2 41, pH of 7.41, consistent with hypoxemic respiratory failure. This morning's chest x-ray showed worsening interstitial changes, and follow-up chest x-ray this afternoon showed cardiomegaly with diffuse interstitial changes, mild pulmonary vascular congestion, findings could be correlated to atypical pneumonia or interstitial pneumonitis. ProBNP was added to this morning's labs and was within normal limits at 576. Labs show initial white count of 3.3, which subsequently decreased to 2.2 through patient's stay, hemoglobin of 11.4, down to 10.4, no evidence of coagulopathy, electrolytes within normal limits, renal profile is normal, initial plasma lactic acid was 2.2, patient was given a liter bolus in the emergency room, and received a maintenance IV fluid rate at 100 ML per hour. He was given a dose of IV Levaquin in the ER, and was subsequently switched to Rocephin and Zithromax on which she remains. Her T-max in the last 24 hours was 101.1F, patient had another episode of low-grade fever this morning with a temp of 100F. He was treated with IV Tylenol, urine and blood cultures remain negative to date. Her other medical history includes diabetes mellitus type 2, morbid obesity, GERD/reflux, hypertension, hyperlipidemia, hypothyroidism, chronic back pain, neuropathy, iron deficiency anemia, insomnia , anxiety, depression. Of note patient states she was recently seen by Dr. Lucero in consultation in regards to low white counts and anemia, and she is supposed to follow-up with him in the fall in regards to the results of testing. On today's evaluation patient is calm and comfortable, she is in no acute distress, in the recliner, on 10 L per high flow nasal cannula, his any cough, denies any chest congestion, denies any phlegm production denies any hemoptysis, denies any chest wall tenderness. We're seeing the patient in regards to acute hypoxemic respiratory failure, and the cause of which is under investigation. On 01/07/2018 she was seen again in follow-up on medical surgical floor. She remains on high flow nasal cannula, currently at 10 L, and the pulse ox remains marginal from 88-93%. Patient still remains very dyspneic, and limited in terms of activity tolerance. She did have intermittent low-grade fevers today, with T-max of 100.7F. CT chest results and films were reviewed by Dr. Wylie today, and showed extensive bilateral pulmonary airspace infiltrates assisted with acute pneumonia, and increased paratracheal adenopathy. Lung sounds are diminished, but no rhonchi, rales or wheezes noted. Patient denies any phlegm production, denies any chest congestion, there is no wheezing. Patient's IV antibiotics have been switched to Levaquin, and the patient received 1 dose. Urine and blood cultures remain negative, Legionella urine antigen and mycoplasma IgM ordered and are pending at this time. Patient did receive a few doses of IV diuretics, with no improvement in oxygenation. Hence we will stop those. There is a concern about a fungal infection versus ALLERGIC bronchopulmonary aspergillosis. Antibiotic coverage will be stepped up and switched over to meropenem and vancomycin. We'll request consultation from hematology and infectious disease service. On 01/08/2018 patient seen in follow-up. Breathing easier today, although patient still becomes quite dyspneic with any exertion, even walking to the commode. Still requiring 10 L per high flow nasal cannula, and her pulse ox remains marginal at 90-92%. On sounds are diminished, with some crackles at the left lower base. No rhonchi, no wheezing, no cough, no phlegm production. No hemoptysis, no chest wall tenderness. Her last fever was yesterday at 1457, with a temp of 100.7F. Today we switch the antibiotic coverage to meropenem and vancomycin, she was seen by ID service, mycoplasma IgM and Legionella antigen were not detected. Cultures remain negative. Repeat chest x-ray showed cardiomegaly with multifocal areas of edema and/or infiltrates affecting bilateral upper and lower lungs, no significant change from 2 days prior. On 01/09/2018 patient seen in follow-up on medical surgical floor. Still quite dyspneic with any exertion, she remains on 10 L per high flow nasal cannula, and her oxygen saturation remains marginal at 90%, no febrile episodes for almost 48 hours. Yesterday's chest x-ray did not show much improvement in terms of multifocal areas of infiltrates in bilateral upper and lower lungs. Cultures remain negative thus far, she is still not able to bring up any sputum , sounds are diminished bilaterally, with bibasilar crackles, no wheezes or rhonchi appreciated. She remains on meropenem. ID service is now following, hematology is planning a bone marrow biopsy. Today's chest x-ray is similar to the prior exam, and looking slightly worse in terms of diffuse pulmonary infiltrates. We will schedule the patient for bronchoscopy with BAL by Dr. Wylie tomorrow, and this will be done in the OR, patient will be intubated for the procedure. This was discussed with the patient and her niece, she was anxious regarding the procedure, she had a lot of questions, and concerns about potential poor outcome including procedure. Questions were answered, and there is a risk of mortality, and there is a chance of patient requiring a mechanical ventilation after the procedure, however proceeding with bronchoscopy would allow to make a diagnosis, obtain sputum samples, and direct antibiotic therapy. The patient and the niece did agree to go ahead with the procedure, patient will be nothing by mouth after midnight and bone marrow biopsy will be done by Dr. Allen following the bronchoscopy. On 01/10/2018 patient seen in follow-up on medical surgical floor, prior to her scheduled bronchoscopy. Remains on 10 L per high flow nasal cannula, she is in no acute distress, but becomes very dyspneic with any exertion. Was able to bring up some sputum today, afebrile. Cultures remain negative. Remains on meropenem. He service is following, patient is awaiting her bronchoscopy with BAL by Dr. Wylie today, which will be followed by bone marrow biopsy by Dr. Allen. Patient is to be intubated for the procedure, and there is a likelihood she would require mechanical ventilation after the procedure, and a bed will be obtained in the ICU. Patient was seen this morning on 01/11/2018, remains on mechanical ventilation, on 50% FiO2, and she was still on propofol. Patient was examined, chest x-ray was reviewed continues to show nodular infiltrates bilaterally, but slightly improved compared to the chest x-ray done post bronchoscopy yesterday. Patient was diuresed overnight, and I went ahead, discontinued the propofol, awaken the patient, and gave the patient a short weaning trial on pressure support of 8 and CPAP. She was noted to do quite well on the mode of weaning, hence I proceeded to extubating the patient to a BiPAP with IPAP of 10 and EPAP of 5, FiO2 at 50%. Patient did quite well on that mode of noninvasive positive pressure ventilation, and she looked quite comfortable. Hence I will switch her to a high flow nasal cannula if she continues to tolerate that well. All labs were reviewed, WBC count is 2.2 hemoglobin is 9.3 platelets remained 1 55, 000, electrolytes and renal profile are normal. Chest x-ray as noted earlier. Reevaluated today on 01/12/2018, remains in the intensive care unit, extubated yesterday, and tolerated the extubation well over the last 24 hours. Patient is actually now on 8 L high flow nasal cannula, and her O2 saturation is 95%. Chest x-ray showed slight improvement, remains on broad-spectrum antibiotics, diuretics, and so far the bronchial washings preliminary report is nondiagnostic. Ordered angiotensin-converting enzyme level and I ordered c anca , I have also ordered hypersensitivity panel on this patient. I have a feeling that the patient may eventually require VATS lung biopsy. This is assuming the patient does not improve with antibiotics and steroids, and if she continues to have nodular infiltrates bilaterally. Clinically however the patient is showing some improvement at least over the last couple of days. And today she seems to be doing much and much better. But her chest x-ray is still concerning , and her CT of the chest is also concerning to be. Bone marrow results are still pending. Her WBC count is up to 7 today hemoglobin is 9.8 and platelets are 174,000. Patient remains on antibiotics and steroids. On 01/13/2018 patient seen in follow-up in the intensive care unit. She is awake, alert, oriented 3, in no acute distress. Sitting up in a chair, eating breakfast. She remains on 8 L per high flow nasal cannula, pulse ox is 95-98%, incentive spirometer effort is 500-750. She was successfully extubated on 01/11, and tolerating activation quite well, denies any dyspnea, she is productive cough with production of yellowish whitish sputum. Lung sounds are positive for bibasilar crackles, no wheezes, a few scattered rhonchi, remains afebrile, denies any chills. Patient is status post bronchoscopy with BAL on , and bronchial washings culture remain negative thus far. Patient remains on empiric antibiotics in the form of meropenem. She remains on IV steroids, nebulized bronchodilators. Today's chest x-ray shows persistence of bilateral areas of airspace disease, no significant change compared the chest x- ray from yesterday. Patient is hemodynamically stable, hence fluids as 0.9 normal saline at 100 ML per hour hours. No other drips. From pulmonary/ critical care standpoint patient is stable for transfer out of intensive care unit today to general medical floor. Today's labs were noted. Progress note dated 01/14/2018 This is a 53-year-old obese female with history of acute hypoxemic respiratory failure secondary to extensive bilateral infiltrates consistent with pneumonia. Anyway, the bronchoscopy and BAL did not reveal any specific pathogens other than Shae. The patient is doing much better. She was moved out of the ICU yesterday. She is down to 2 L. Her white count has recovered. Her lactic acidosis has resolved. She will discuss the bone marrow biopsy with her group fitness assistant department head. In addition to the above, the patient has a history of asthma hypertension diabetes morbid obesity chronic back pain GERD hypothyroidism anxiety depression and life time nonsmoker. Her breathing is much improved. She is not very short of breath. The patient only requiring a small amount of oxygen. She's recovered nicely from this acute illness. Progress note dated 01/15/2018 53-year-old female admitted with a diagnosis of acute hypoxemic respiratory failure secondary to extensive bilateral pneumonia. The patient is status post bronchoscopy and BAL. So far all culture data is negative. She was moved out of the ICU a couple days ago. She is awaiting the results of the bone marrow biopsy ordered by her primary physician. It is to be reviewed by the oncologist and group fitness assistant department head. She has a history of obesity, asthma, hypertension , diabetes, chronic back pain, GERD, hypothyroidism, anxiety, depression, and she is a lifelong nonsmoker. There is no new x-ray to look at, no new labs to report, and microbiology is still negative other than Shae. On 01/16/2018 patient seen in follow-up. She continues to improve, currently on 2 L per nasal cannula pulse ox is 91%. Afebrile. Bronchial washing cultures showed just Shae albicans, no other growth. She remains on meropenem for antibiotic coverage, denies any fever or chills, lung sounds are clear to auscultation, no cough, no phlegm production. 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 Patient would like second opinion. Today's chest x-ray has been reviewed by Dr. Hollingsworth, and shows diffuse pleural parenchymal changes, stable in appearance. Clinically patient continues to improve. She still has significant amount of bilateral lower extremity edema, and continues on IV diuretics. Objective - Vital Signs Vital signs: Vital Signs Temp 98.1 F 01/16/18 07:00 Pulse 72 01/16/18 07:47 Resp 20 01/16/18 07:00 BP 123/72 01/16/18 07:00 Pulse Ox 91 L 01/16/18 07:36 Intake & Output 01/15/18 01/16/18 01/16/18 18:59 06:59 18:59 Other: Voiding Method Toilet Toilet Bedside Commode Bedside Commode # Voids 3 3 2 # Bowel Movements 1 1 ABP, PAP, CO, CI - Last Documented Arterial Blood Pressure 133/61 - Exam - Constitutional Alert, pleasant, 53-year-old obese white female, sitting in the recliner, currently on 2 L per high flow cannula General appearance: morbidly obese, no acute distress - EENT Eyes: PERRLA, dentition normal ENT: NA/AT - Neck Neck: no lymphadenopathy, normal ROM Carotids: bilateral: upstroke normal Thyroid: bilateral: normal size - Respiratory Respiratory: bilateral: diminished, no rhonchi, no rales - Cardiovascular Rhythm: regular Heart sounds: normal: S1, S2 leg Peripheral Edema: bilateral: Trace ankle Peripheral Edema: bilateral: Trace dorsalis pedis Peripheral Pulses: bilateral: Normal radial pulse Peripheral Pulses: bilateral: Normal - Gastrointestinal General gastrointestinal: no organomegaly, soft, no tenderness - Integumentary Integumentary: normal turgor - Neurologic Neurologic: CNII-XII intact - Musculoskeletal Musculoskeletal: strength equal bilaterally - Psychiatric Psychiatric: A&O x's 3, appropriate affect, intact judgment & insight - Labs CBC & Chem 7: 01/15/18 08:45 01/15/18 08:45 Labs: Abnormal Lab Results - Last 24 Hours (Table) 01/15/18 01/15/18 01/16/18 Range/Units 17:20 21:08 07:35 POC Glucose (mg/dL) 136 H 144 H 63 L (75-99) mg/dL 01/16/18 01/16/18 Range/Units 07:53 12:22 POC Glucose (mg/dL) 67 L 140 H (75-99) mg/dL Assessment and Plan Plan: Assessment: #1. Acute hypoxemic respiratory failure related to acute extensive bilateral infiltrates, consistent with acute pneumonia, community acquired, and there is a concern for fungal infection in this immunocompromised host #2. Intermittent fever, chills, shortness of breath related to the above #3. Pancytopenia, status post bone marrow biopsy, improved #4. Mild lactic acidosis present on admission, with lactic acid level of 2.2, and the patient was fluid resuscitated with 1 L of crystalloids, and received maintenance IV fluids at a rate of 100 ML per hour, subsequent lactic acid was down to 0.8 #5. Abdominal pain, CT of abdomen and pelvis showed abnormal prominence of the central endometrium, or could possibly represent trapped fluid in the endometrial canal and abnormal endometrial thickening, be followed up with nonemergent pelvic ultrasound #6. Chronic bronchial asthma, and her latest PFT showed FEV1 of 68% of predicted, with post bronchodilator response up to 73% of predicted, and patient was diagnosed with adult onset genetic asthma. This seems to be stable right now #7. Hypertension, hyperlipidemia #8. Diabetes mellitus type 2 #9. Morbid obesity with a BMI of 54.8 kg/m #10. Chronic back pain #11. GERD/reflux on omeprazole #12. Hypothyroidism #13. Anxiety, depression #14. Lifetime nonsmoker #15. Oropharyngeal candidiasis, on nystatin swish and swallow Plan: Continue antibiotic coverage per ID service recommendation, clinically patient is improving, denies any worsening dyspnea, lung sounds reveal good air entry bilaterally, no rales, no rhonchi or wheezes. Tinea IV diuretics, patient still has significant amount of bilateral lower extremity edema. Weights, accurate I&O's. Patient would like to consider second opinion regarding her diagnosis of acute myeloid leukemia. This will be discussed with the medical oncology. We will see the patient on as-needed basis. I performed a history & physical examination of the patient and discussed their management with my nurse practitioner, Flori Colunga. I reviewed the nurse practitioner's note and agree with the documented findings and plan of care. Lung sounds are clear. The findings and the impression was discussed with the patient. I attest to the documentation by the nurse practitioner. Time with Patient: Less than 30
--- NOTE | 2018-01-16 15:17 | P.PN ---
Subjective Patient was admitted with acute hypoxic respiratory failure and bilateral infiltrates consistent with pneumonia patient is being treated for healthcare associated pneumonia patient did not have any significant improvement because of which patient underwent bronchoscopy which did not show any significant past. There is a concern about hematologic malignancy because of which patient the had a biopsy of the bone marrow. Patient has significant bladder blast cells in the peripheral smear. Because of which we believe patient is immunosuppressive patient may have Pneumocystis carinii pneumonia or a fungal pneumonia. Patient was intubated SA they're able to extubate the patient today patient is on aspirin cannula oxygen. Patient is presently on meropenem Is presently on 8 L of oxygen 01/12/2018 Patient remains on meropenem all the workup from bronchial lower lobe large remains negative patient is on 10 L of onset at this time aspirin cultures is showing Shae although we do not believe it's significant. Autoimmune workup is negative 01/15/2018 Patient is clinically doing well is on 2 L of oxygen will obtain PT and OT consultation possibility of discharge tomorrow all the workup is negative unsure of the exact etiology of acute lung injury can be related to atypical pneumonia followed by acute lung injury or acute lung injury can be secondary to acute leukemia as well. 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 Oncology will discuss with the patient regarding options of chemo therapy as an inpatient during this hospitalization because of the aggressive nature of the leukemia. Constitutional: Denied any fatigue denied any fever. Cardio vascular: denied any chest pain, palpitations Gastrointestinal denied any nausea vomiting Pulmonary: Denied any shortness of breath cough Neurologic denied any new focal deficits Objective - Vital Signs Vital signs: Vital Signs Temp 98.1 F 01/16/18 07:00 Pulse 72 01/16/18 07:47 Resp 20 01/16/18 07:00 BP 123/72 01/16/18 07:00 Pulse Ox 91 L 01/16/18 07:36 Intake & Output 01/15/18 01/16/18 01/16/18 18:59 06:59 18:59 Other: Voiding Method Toilet Toilet Bedside Commode Bedside Commode # Voids 3 3 2 # Bowel Movements 1 1 ABP, PAP, CO, CI - Last Documented Arterial Blood Pressure 133/61 - Exam PHYSICAL EXAMINATION: GENERAL: The patient is alert and oriented x3, not in any acute distress. Well developed, well nourished. HEENT: Pupils are round and equally reacting to light. EOMI. No scleral icterus. No conjunctival pallor. Normocephalic, atraumatic. No pharyngeal erythema. No thyromegaly. CARDIOVASCULAR: S1 and S2 present. No murmurs, rubs, or gallops. PULMONARY: Chest is clear to auscultation, no wheezing or crackles. ABDOMEN: Soft, nontender, nondistended, normoactive bowel sounds. No palpable organomegaly. MUSCULOSKELETAL: No joint swelling or deformity. EXTREMITIES: No cyanosis, clubbing, or pedal edema. NEUROLOGICAL: Gross neurological examination did not reveal any focal deficits. SKIN: No rashes. - Labs CBC & Chem 7: 01/15/18 08:45 01/15/18 08:45 Labs: Abnormal Lab Results - Last 24 Hours (Table) 01/15/18 01/15/18 01/16/18 Range/Units 17:20 21:08 07:35 POC Glucose (mg/dL) 136 H 144 H 63 L (75-99) mg/dL 01/16/18 01/16/18 Range/Units 07:53 12:22 POC Glucose (mg/dL) 67 L 140 H (75-99) mg/dL Assessment and Plan Plan: -Acute hypoxic respiratory failure: With bilateral infiltrates possible etiologies being atypical pneumonia. Patient is presently on meropenem, infectious disease is following the patient patient most probably has acute lung injury or inflammatory reaction to secondary to probably atypical pneumonia and/or acute leukemia patient has significant improvement is also on steroids. - - acute leukemia, AML: Chemotherapy discussion as per oncology as mentioned above. -Sepsis on admission with lactic acidosis which improved patient had fever on admission as well -Chronic bronchial asthma: Continue with systemic steroids inhalational treatments -Hypertension -Hyperlipidemia -Type 2 diabetes mellitus uncontrolled blood sugars due to systemic steroids, dose of Levemir is being increased -Morbid obesity -Chronic low back pain -Gastroesophageal reflux disease -Hypothyroidism -Anxiety and depression
[2018-01-16 16:51] LABS: Glucose,Whole Blood 158 mg/dL (75-99)
[2018-01-16] MEDS ORDERED: ALLOPURINOL 300 MG TAB PO SCH (19:30)
[2018-01-16] MEDS ORDERED: ONDANSETRON 8 MG in SODIUM CHLORIDE 0.9% 50 ML IVPB PRN (20:01)
[2018-01-16] MEDS: SALT AND SODA MOUTHWASH 1,000 ML PO SCH (21:19)
[2018-01-16] MEDS: MONTELUKAST 10 MG TAB PO SCH (21:20)
[2018-01-16] MEDS: FAMOTIDINE 20 MG/2 ML VIAL IV SCH (21:21)
[2018-01-16] MEDS: ONDANSETRON 16 MG in SODIUM CHLORIDE 0.9% 50 ML IVPB SCH (21:24)
[2018-01-16 21:31] LABS: Glucose,Whole Blood 125 mg/dL (75-99)
--- NOTE | 2018-01-16 22:12 | P.PN ---
Subjective Progress Note Date: 01/16/18 the patient's respiratory status continues to improve. She continues on nasal cannula but feels less short of breath. She denies any obvious bleeding. No fevers or chills noted. Objective - Vital Signs Vital signs: Vital Signs Temp 99.6 F 01/16/18 15:25 Pulse 63 01/16/18 15:25 Resp 18 01/16/18 15:25 BP 114/74 01/16/18 15:25 Pulse Ox 96 01/16/18 21:13 Intake & Output 01/16/18 01/16/18 01/17/18 06:59 18:59 06:59 Other: Voiding Method Toilet Toilet Bedside Commode Bedside Commode # Voids 3 1 # Bowel Movements 1 1 ABP, PAP, CO, CI - Last Documented Arterial Blood Pressure 133/61 - Constitutional General appearance: Present: no acute distress - EENT Eyes: Present: PERRLA ENT: Present: hearing grossly normal, normal oropharynx - Respiratory Respiratory: left: diminished - Cardiovascular Rhythm: regular Heart sounds: normal: S1, S2 - Gastrointestinal General gastrointestinal: Present: normal bowel sounds, soft - Integumentary Integumentary: Present: normal - Neurologic Neurologic: Present: CNII-XII intact - Musculoskeletal Musculoskeletal: Present: generalized weakness, strength equal bilaterally - Psychiatric Psychiatric: Present: A&O x's 3, appropriate affect - Labs CBC & Chem 7: 01/15/18 08:45 01/15/18 08:45 Labs: Abnormal Lab Results - Last 24 Hours (Table) 01/16/18 01/16/18 01/16/18 Range/Units 07:35 07:53 12:22 POC Glucose (mg/dL) 63 L 67 L 140 H (75-99) mg/dL 01/16/18 01/16/18 Range/Units 16:42 21:30 POC Glucose (mg/dL) 158 H 125 H (75-99) mg/dL Assessment and Plan (1) Acute myeloid leukemia Narrative/Plan: The patient's pathology report has been discussed with the pathologist at [facility]. It was indicated that the diagnosis most likely was acute myeloid leukemia. The formal pathology report is now available. It confirms the presence of increased number of myeloid blasts. On flow cytometric, as well as cell count, the percentage of blasts is greater than 20%. This is compatible with acute myeloid leukemia. On CD34 staining, the percentage was in the 10% range. Significant increase in immature monocytes are also noted . The overall picture per the pathologist, was felt to definitely favor acute myeloid leukemia (though RAEB-2 was in the differential). The clinically, the patient's course has been quite aggressive, consistent with acute myeloid leukemia. Therefore discussed in detail with the patient her own, and then again later in the day with her and her family. They were advised that based on the clinical presentation and pathology, the patient appears to have acute myeloid leukemia and should be treated as such. She has had an echocardiogram done, which reveals essentially normal ejection fraction, as well as a PICC line placed. Current treatment recommendations for induction per NCCN guidelines were discussed in detail. The standard 7+3 regimen has been recommended, and was discussed in detail. We discussed prognosis with and without treatment. Side effects during and postchemotherapy were also discussed. They indicated that they're willing to proceed. The patient will be transferred to the floor oncology. Chemotherapy orders have been submitted to her pharmacy. I did contact pharmacy to start the regimen. The patient will be closely monitored with clinical exams, and labs including labsmfor tumor lysis, which have been ordered. She will be started on allopurinol. Elitek will be utilized if necessary Current Visit: Yes Status: Acute Code(s): C92.00 - ACUTE MYELOBLASTIC LEUKEMIA, NOT HAVING ACHIEVED REMISSION SNOMED Code(s): 97593034 (2) Pancytopenia Narrative/Plan: The patient's WBC count has been increasing, with increased blasts percentage , and monocytes. This is compatible with acute myeloid leukemia with monocytic differentiation. It was discussed with the patient, that pancytopenia is likely to persist, requiring aggressive transfusion support, post-induction therapy, total cell count recovery occurs. Continue to monitor with transfusion support as needed. Irradiated blood products will be used Current Visit: Yes Status: Acute Priority: High Code(s): D61.818 - OTHER PANCYTOPENIA SNOMED Code(s): 269426159 (3) Pneumonia Narrative/Plan: The patient is much improved in terms of her respiratory status. Case was discussed with the admitting service and pulmonary medicine. Defer to the admitting service, ID and pulmonary medicine for continued treatment. Current Visit: Yes Status: Acute Code(s): J18.9 - PNEUMONIA, UNSPECIFIED ORGANISM SNOMED Code(s): 181930405 Time with Patient: Greater than 30
[2018-01-16] MEDS: SODIUM CHLORIDE 0.9% IV SCH (22:23)
[2018-01-16] MEDS: DAUNORUBICIN IV SCH (22:23)
[2018-01-16] MEDS: CYTARABINE IV SCH (22:23)
[2018-01-16] MEDS: INSULIN DETEMIR 100 UNIT/ML 10 ML VIAL SQ SCH (23:15)
[2018-01-16] MEDS: ALLOPURINOL 300 MG TAB PO SCH (23:29)
[2018-01-17] MEDS: LEVOTHYROXINE 125 MCG TAB PO SCH (06:10)
[2018-01-17 07:19] LABS: Glucose,Whole Blood 106 mg/dL (75-99)
[2018-01-17] MEDS: IPRATROPIUM-ALBUTEROL 3 ML NEB INHALATION PRN (07:19)
[2018-01-17] MEDS: SYMBICORT 160-4.5 MCG INHALER INHALATION SCH ×2 (07:20→19:00)
[2018-01-17] MEDS: INSULIN ASPART 100 UNIT/ML 1 ML 10 ML VIAL SQ SCH ×7 (07:32→20:46)
[2018-01-17 07:42] LABS: HCT 30.7 % (34.0-46.0); HGB 9.8 gm/dL (11.4-16.0); MCV 96.9 fL (80.0-100.0); Mean Platelet Volume 7.3; Platelet Count 106 k/uL (150-450); RBC 3.17 m/uL (3.80-5.40); RDW 14.8 % (11.5-15.5)
[2018-01-17] MEDS: PANTOPRAZOLE 40 MG/10 ML VIAL IV SCH (08:01)
[2018-01-17] MEDS: FLUTICASONE 50MCG/SPRAY NASAL 16GM EA NOSTRIL SCH (08:01)
[2018-01-17] MEDS: FUROSEMIDE 10 MG/ML 2 ML VIAL IV SCH ×2 (08:01→20:46)
[2018-01-17] MEDS: HEPARIN SODIUM,PORCINE 5,000 UNIT/ML 1 ML VIAL SQ SCH ×2 (08:02→16:08)
[2018-01-17] MEDS: POTASSIUM CHLORIDE ER 20 MEQ TAB.ER PO SCH ×2 (08:02→20:45)
[2018-01-17] MEDS: ASPIRIN 81 MG PO SCH (08:02)
[2018-01-17] MEDS: predniSONE 10 MG TAB PO SCH (08:02)
[2018-01-17] MEDS: GABAPENTIN 300 MG CAP PO SCH ×4 (08:02→22:54)
[2018-01-17] MEDS: LORATADINE 10 MG TAB PO SCH (08:02)
[2018-01-17] MEDS: ATORVASTATIN 20 MG TAB PO SCH (08:02)
[2018-01-17] MEDS: METOPROLOL TARTRATE 50 MG TAB PO SCH ×2 (08:02→20:45)
[2018-01-17] MEDS: CALCIUM CARB-VIT D 500MG-200UN 1 EACH TAB PO SCH (08:02)
[2018-01-17] MEDS: NYSTATIN 100,000 UNIT/ML SUSP 500,000 UNIT/5 ML CUP PO SCH ×3 (08:02→18:58)
[2018-01-17] MEDS: ESCITALOPRAM 10 MG TAB PO SCH (08:02)
[2018-01-17] MEDS: ALLOPURINOL 300 MG TAB PO SCH ×2 (08:02→20:45)
[2018-01-17] MEDS: busPIRone HCl 5 MG TAB PO SCH ×2 (08:03→20:45)
[2018-01-17] MEDS: MEROPENEM 2 GM in SODIUM CHLORIDE 0.9% 100 ML IVPB SCH ×2 (08:03→16:09)
[2018-01-17] MEDS: FERROUS SULFATE 325 MG TAB PO SCH (08:04)
[2018-01-17] MEDS: SALT AND SODA MOUTHWASH 1,000 ML PO SCH ×4 (08:04→22:22)
[2018-01-17 08:06] LABS: ALT 34 U/L (9-52); AST 19 U/L (14-36); Albumin 3.2 g/dL (3.5-5.0); Alkaline Phosphatase 70 U/L (38-126); Anion Gap 7 mmol/L; Blood Urea Nitrogen 23 mg/dL (7-17); Carbon Dioxide 29 mmol/L (22-30); Chloride 104 mmol/L (98-107); Glucose 108 mg/dL (74-99); Phosphorus 5.2 mg/dL (2.5-4.5); Potassium 4.2 mmol/L (3.5-5.1); Sodium 140 mmol/L (137-145); Total Bilirubin 0.5 mg/dL (0.2-1.3); Uric Acid 6.7 mg/dL (3.7-7.4)
[2018-01-17 09:15] LABS: Band Neutrophils % 1 %; Myelocytes % 1 %; Neutrophils % (M) 11 %; Nucleated Red Blood Cells 2 /100 WBC (0-0); Total Cells Counted 200
[2018-01-17 09:16] LABS: Lymphocytes # (M) 2.72 k/uL (1.0-4.8); Monocytes # (M) 10.01 k/uL (0-1.0); Myelocytes # (M) 0.14 k/uL (0); WBC 14.3 k/uL (3.8-10.6)
[2018-01-17 09:18] LABS: Poikilocytosis (M) Present
[2018-01-17 11:38] LABS: Glucose,Whole Blood 162 mg/dL (75-99)
[2018-01-17] MEDS: SODIUM CHLORIDE 0.9% 1,000 ML IV SCH ×2 (12:30→20:47)
[2018-01-17] MEDS: CYANOCOBALAMIN 500 MCG TAB PO SCH (12:31)
[2018-01-17 17:27] LABS: Glucose,Whole Blood 145 mg/dL (75-99)
--- NOTE | 2018-01-17 18:17 | P.PN ---
Subjective Progress Note Date: 01/17/18 Principal diagnosis: Leukemia She tolerated day one of 7 plus 3 chemotherapy induction well. She had not much of an appetite this am, but no nausea, vomiting or diarrhea. She overall is doing well. Objective - Vital Signs Vital signs: Vital Signs Temp 98.4 F 01/17/18 16:24 Pulse 71 01/17/18 16:24 Resp 16 01/17/18 16:24 BP 118/73 01/17/18 16:24 Pulse Ox 93 L 01/17/18 16:24 Intake & Output 01/16/18 01/17/18 01/17/18 18:59 06:59 18:59 Intake Total 1820 1068 Balance 1820 1068 Intake: IV 900 900 Meropenem 2 gm In Sodium 100 100 Chloride 0.9% 100 ml @ 200 mls/hr IVPB Q8HR [facility] Rx#:[id number] Sodium Chloride 0.9% 1, 800 800 000 ml @ 100 mls/hr IV . Q10H [facility] Rx#:[id number] Intake, IV Titration 90 168 Amount Cytarabine/Pf 220 mg In 168 Sodium Chloride 0.9% 500 ml @ 21.292 mls/hr IV Q24H [facility] Rx#:[id number] Daunorubicin 200 mg In 40 Empty Syringe 1 syr @ 0 mls/hr IV Q24H [facility] Rx#: [id number] Ondansetron 16 mg In 50 Sodium Chloride 0.9% 50 ml @ 100 mls/hr IVPB Q24H [facility] Rx#:[id number] Oral 830 Other: Voiding Method Toilet Toilet Bedside Commode Bedside Commode # Voids 1 2 # Bowel Movements 1 ABP, PAP, CO, CI - Last Documented Arterial Blood Pressure 133/61 - Constitutional General appearance: Present: cooperative, morbidly obese, no acute distress - EENT Eyes: Present: EOMI, dentition normal ENT: Present: hard of hearing, NA/AT, normal oropharynx - Neck Details: Supple, No JVD Neck: Present: normal ROM - Respiratory Respiratory: bilateral: CTA - Cardiovascular Rhythm: regular Heart sounds: normal: S1, S2 - Gastrointestinal General gastrointestinal: Present: normal bowel sounds, soft, tenderness - Integumentary Integumentary: Present: pale - Neurologic Neurologic: Present: CNII-XII intact - Musculoskeletal Musculoskeletal: Present: generalized weakness, strength equal bilaterally - Psychiatric Psychiatric: Present: A&O x's 3, appropriate affect, intact judgment & insight - Labs CBC & Chem 7: 01/17/18 07:08 01/17/18 07:08 Labs: Abnormal Lab Results - Last 24 Hours (Table) 01/16/18 01/17/18 01/17/18 Range/Units 21:30 07:08 07:08 WBC 14.3 H (3.8-10.6) k/uL RBC 3.17 L (3.80-5.40) m/uL Hgb 9.8 L (11.4-16.0) gm/dL Hct 30.7 L (34.0-46.0) % Plt Count 106 L (150-450) k/uL Monocytes # (Manual) 10.01 H (0-1.0) k/uL Myelocytes # (Manual) 0.14 H (0) k/uL Nucleated RBCs 2 H (0-0) /100 WBC BUN 23 H (7-17) mg/dL Glucose 108 H (74-99) mg/dL POC Glucose (mg/dL) 125 H (75-99) mg/dL Calcium 8.0 L (8.4-10.2) mg/dL Phosphorus 5.2 H (2.5-4.5) mg/dL Total Protein 6.0 L (6.3-8.2) g/dL Albumin 3.2 L (3.5-5.0) g/dL 01/17/18 01/17/18 01/17/18 Range/Units 07:17 11:37 17:26 WBC (3.8-10.6) k/uL RBC (3.80-5.40) m/uL Hgb (11.4-16.0) gm/dL Hct (34.0-46.0) % Plt Count (150-450) k/uL Monocytes # (Manual) (0-1.0) k/uL Myelocytes # (Manual) (0) k/uL Nucleated RBCs (0-0) /100 WBC BUN (7-17) mg/dL Glucose (74-99) mg/dL POC Glucose (mg/dL) 106 H 162 H 145 H (75-99) mg/dL Calcium (8.4-10.2) mg/dL Phosphorus (2.5-4.5) mg/dL Total Protein (6.3-8.2) g/dL Albumin (3.5-5.0) g/dL Assessment and Plan Plan: Assessment and Plan (1) Acute myeloid leukemia Narrative/Plan: The patient's pathology report has been discussed with the pathologist at [facility]. It was indicated that the diagnosis most likely was acute myeloid leukemia. The formal pathology report is now available. It confirms the presence of increased number of myeloid blasts. On flow cytometric, as well as cell count, the percentage of blasts is greater than 20%. This is compatible with acute myeloid leukemia. On CD34 staining, the percentage was in the 10% range. Significant increase in immature monocytes are also noted . The overall picture per the pathologist, was felt to definitely favor acute myeloid leukemia (though RAEB-2 was in the differential). The clinically, the patient's course has been quite aggressive, consistent with acute myeloid leukemia. Therefore discussed in detail with the patient her own, and then again later in the day with her and her family. They were advised that based on the clinical presentation and pathology, the patient appears to have acute myeloid leukemia and should be treated as such. She has had an echocardiogram done, which reveals essentially normal ejection fraction, as well as a PICC line placed. Current treatment recommendations for induction per NCCN guidelines were discussed in detail. The standard 7+3 regimen has been recommended, and was discussed in detail. We discussed prognosis with and without treatment. Side effects during and postchemotherapy were also discussed. They indicated that they're willing to proceed. The patient will be transferred to the floor oncology. Chemotherapy orders have been submitted to her pharmacy. I did contact pharmacy to start the regimen. The patient will be closely monitored with clinical exams, and labs including labsmfor tumor lysis, which have been ordered. She will be started on allopurinol. Elitek will be utilized if necessary - Status Post Day one of 7 plus 3 induction chemotherapy and tolerating well, continue to monitor for s/s/ of infection, bleeding, tumor lysis, and mental status changes. Current Visit: Yes Status: Acute Code(s): C92.00 - ACUTE MYELOBLASTIC LEUKEMIA, NOT HAVING ACHIEVED REMISSION SNOMED Code(s): 26223489 (2) Pancytopenia Narrative/Plan: The patient's WBC count has been increasing, with increased blasts percentage , and monocytes. This is compatible with acute myeloid leukemia with monocytic differentiation. It was discussed with the patient, that pancytopenia is likely to persist, requiring aggressive transfusion support, post-induction therapy, total cell count recovery occurs. Continue to monitor with transfusion support as needed. Irradiated blood products will be used - continue daily cbc draws Current Visit: Yes Status: Acute Priority: High Code(s): D61.818 - OTHER PANCYTOPENIA SNOMED Code(s): 424495502 (3) Pneumonia Narrative/Plan: The patient is much improved in terms of her respiratory status. Case was discussed with the admitting service and pulmonary medicine on 01/16/18. Defer to the admitting service, ID and pulmonary medicine for continued treatment. Current Visit: Yes Status: Acute Code(s): J18.9 - PNEUMONIA, UNSPECIFIED ORGANISM SNOMED Code(s): 015611836 Physician Attestation: I have completed the full history and physical of this patient and agree with above dictation by Ashlee Manning NP. Dictated as a scribe.
--- NOTE | 2018-01-17 19:43 | PN ---
PROGRESS NOTE DATE OF SERVICE: 01/16/2018 This 53-year-old woman was admitted with acute hypoxic respiratory failure also thought to have atypical pneumonia. The patient also has acute leukemia. Patient also had features of sepsis and IV antibiotics has been initiated, was being continued at this time. The patient complained of tiredness, weakness and shortness of breath. PAST MEDICAL HISTORY: Reviewed. REVIEW OF SYSTEMS: Cardiovascular system: No angina or palpitations. Respirations: As mentioned earlier. GI: No nausea or vomiting. : No dysuria or hematuria. Nervous system: No numbness or weakness. CURRENT MEDICATIONS ARE: Reviewed and include: 1. Tylenol 650 q.4h p.r.n. 2. Albuterol q.i.d. and p.r.n. 3. Zyloprim 300 mg p.o. b.i.d. 4. Aspirin 81 mg. 5. Lipitor 20 mg daily. 6. Symbicort 160/4.5 two puffs b.i.d. 7. Buspar 5 mg p.o. b.i.d. 8. Os-Hema 500 mg p.o. b.i.d. PHYSICAL EXAM: Patient is alert, oriented x3. Pulse 71, blood pressure 118/70, respiration 16, temperature 98.4, pulse ox 94% on 3 L. HEENT: Conjunctivae normal. Oral mucosa moist. Neck is no jugular venous distention. CARDIOVASCULAR: S1, S2. RESPIRATORY: Breath sounds diminished in the bases. Bilateral scattered rhonchi and crackles. Expiratory wheezing also. ABDOMEN: Soft, obese. LEGS: No edema. No swelling. Central nervous system: Diffusely weak. LABS: WBC 14.2, hemoglobin 9.8 and glucose noted. Phosphorus 5.2. ASSESSMENT: 1. Acute hypoxic respiratory failure with bilateral infiltrates, possibly acute pneumonia on broad-spectrum IV antibiotics. 2. Acute leukemia, AML on chemotherapy. 3. Sepsis with lactic acidosis present on admission. 4. Chronic bronchial asthma. 5. Hypertension. 6. Hyperlipidemia. 7. History of diabetes. 8. Morbid obesity. 9. Gastroesophageal reflux disease. 10.Chronic low back pain. 11.Hypothyroidism. 12.Anxiety, depression. RECOMMENDATIONS AND DISCUSSION: Recommend to continue current medications, management and continue symptomatic treatment. The patient is on meropenem as mentioned earlier. Otherwise, monitor blood sugars closely. Bronchodilators. Continue to follow with Pulmonary. Prognosis guarded because of multiple complex medical issues. Chemotherapy per oncology. Medications reconciliation has been done. Further recommendations to follow. MMODL / IJN: [id number] /
[2018-01-17 19:58] LABS: Glucose,Whole Blood 189 mg/dL (75-99)
[2018-01-17] MEDS: MONTELUKAST 10 MG TAB PO SCH (20:45)
[2018-01-17] MEDS: AMMONIUM LACTATE 12% LOTION 225 GM BTL TOPICAL SCH (20:45)
[2018-01-17] MEDS: INSULIN DETEMIR 100 UNIT/ML 10 ML VIAL SQ SCH (20:46)
[2018-01-17] MEDS: ONDANSETRON 16 MG in SODIUM CHLORIDE 0.9% 50 ML IVPB SCH (22:22)
[2018-01-17] MEDS: FAMOTIDINE 20 MG/2 ML VIAL IV SCH (22:22)
--- NOTE | 2018-01-17 22:40 | P.PN ---
Subjective Progress Note Date: 01/17/18 This is a 53-year-old female patient known to ID service as she was seen during her hospitalization in July of this year. At that time she was treated for acute asthma exacerbation complicated by influenza B tracheobronchitis. ID was consulted regarding a cellulitis of the lower extremities. Patient was discharged home on Keflex. Regarding her legs, patient states that they occasionally get red but not a significant problem at this time. Patient states that she has had for about the last month difficulty with ambulating very far and early fatigue and shortness of breath. She states she has been sick for about one week or more with fever and worsening shortness of breath along with cough. She came into [facility] emergency center and on CAT scan of the chest done on 01/06 showed new extensive bilateral pulmonary airspace infiltrate consistent with acute asthma. Increased hair a tracheal adenopathy. She was originally treated with Levaquin and has been switched over to meropenem by Dr. Rubalcava. Patient is also been febrile with pancytopenia. Mycoplasma pneumoniae IgM was normal and Legionella antigen was not detected. Flow cytology recommends consideration of a marrow examination. Consult has been added for oncology. Patient has had ongoing difficulty with hypoxia and remains on high flow nasal cannula at 10 L pulse oxing 86%. She states she becomes extremely winded is getting to the commode chair. Her course has been complicated by episode of epistaxis which is now controlled and also initially vomiting which is also been resolved. She does state that she has 4 episodes of diarrhea today. 01/10/2018 patient has had some progression of her status in that her pulmonary status has not improved and her leukopenia and anemia have worsened. She has been seen by both pulmonary critical care and oncology and constantly has now undergone a bronchoscopy and a bone marrow aspiration. She has respiratory failure and required ongoing mechanical ventilation after her bronchoscopy,is in the intensive care unit. She is sedated but not requiring vasopressor therapy. January 13 the patient has had significant improvement of her status. The patient has tolerated extubation and is now down to 2 L nasal cannula with adequate oxygenation. The levels improved. She is eating without great difficulties. Shortness of breath at rest is improved. Denies discomforts. She did have a bit of a nosebleed earlier that has resolved. Potentially also had some vaginal bleeding that is also improved. 01/14/2018 patient is feeling somewhat better but remains on supplemental oxygen because of her shortness of breath. Pneumonia seems to be improving with current therapy. She relates that diarrhea has improved other than her profound fatigue she is not having new acute symptoms. Appetite is adequate without nausea or emesis. 01/17/2018 there is no been confirmation for acute myelogenous leukemia and she has been started on the 7+3 regimen. She's having no acute difficulties yet at this point in time. Her shortness of breath is markedly improved. She's having no fevers or chills. No acute bleeding at this time. Vaginal bleeding is improved. Objective - Vital Signs Vital signs: Vital Signs Temp 98.4 F 01/17/18 16:24 Pulse 71 01/17/18 16:24 Resp 16 01/17/18 16:24 BP 118/73 01/17/18 16:24 Pulse Ox 96 01/17/18 19:01 Intake & Output 01/17/18 01/17/18 01/18/18 06:59 18:59 06:59 Intake Total 1820 1068 Balance 1820 1068 Intake: IV 900 900 Meropenem 2 gm In Sodium 100 100 Chloride 0.9% 100 ml @ 200 mls/hr IVPB Q8HR STEPHEN Rx#:[id number] Sodium Chloride 0.9% 1, 800 800 000 ml @ 100 mls/hr IV . Q10H STEPHEN Rx#:[id number] Intake, IV Titration 90 168 Amount Cytarabine/Pf 220 mg In 168 Sodium Chloride 0.9% 500 ml @ 21.292 mls/hr IV Q24H STEPHEN Rx#:[id number] Daunorubicin 200 mg In 40 Empty Syringe 1 syr @ 0 mls/hr IV Q24H STEPHEN Rx#: [id number] Ondansetron 16 mg In 50 Sodium Chloride 0.9% 50 ml @ 100 mls/hr IVPB Q24H STEPHEN Rx#:[id number] Oral 830 Other: Voiding Method Toilet Bedside Commode # Voids 2 ABP, PAP, CO, CI - Last Documented Arterial Blood Pressure 133/61 - Exam Gen: This is a morbidly obese 53-year-old female. She is status post bronchoscopy as well as bone marrow aspiration. She required intubation for the bronchoscopy and she is now extubated and doing well. His transfer to oncology and started chemotherapy and has a good attitude. HEENT: Head is atraumatic, normocephalic. Pupils equal, round. Sclerae is anicteric. Conjunctiva pink. Mucous members of the mouth are moist. No thrush noted. NECK: Supple. No JVD. No lymphadenopathy. No thyromegaly. LUNGS: Diminished bilaterally. No wheezes. Mild intercostal retractions. HEART: Regular rate and rhythm. No murmur. ABDOMEN: Soft. Bowel sounds are present. No masses. No tenderness. EXTREMITIES: Trace bilateral pedal edema. No calf tenderness. Dorsalis pedis + 2 bilaterally. NEUROLOGICAL: Awake alert oriented person place and time with no acute gross focal sensory motor deficits - Labs CBC & Chem 7: 01/17/18 07:08 01/17/18 07:08 Labs: Abnormal Lab Results - Last 24 Hours (Table) 01/17/18 01/17/18 01/17/18 Range/Units 07:08 07:08 07:17 WBC 14.3 H (3.8-10.6) k/uL RBC 3.17 L (3.80-5.40) m/uL Hgb 9.8 L (11.4-16.0) gm/dL Hct 30.7 L (34.0-46.0) % Plt Count 106 L (150-450) k/uL Monocytes # (Manual) 10.01 H (0-1.0) k/uL Myelocytes # (Manual) 0.14 H (0) k/uL Nucleated RBCs 2 H (0-0) /100 WBC BUN 23 H (7-17) mg/dL Glucose 108 H (74-99) mg/dL POC Glucose (mg/dL) 106 H (75-99) mg/dL Calcium 8.0 L (8.4-10.2) mg/dL Phosphorus 5.2 H (2.5-4.5) mg/dL Total Protein 6.0 L (6.3-8.2) g/dL Albumin 3.2 L (3.5-5.0) g/dL 01/17/18 01/17/18 01/17/18 Range/Units 11:37 17:26 19:57 WBC (3.8-10.6) k/uL RBC (3.80-5.40) m/uL Hgb (11.4-16.0) gm/dL Hct (34.0-46.0) % Plt Count (150-450) k/uL Monocytes # (Manual) (0-1.0) k/uL Myelocytes # (Manual) (0) k/uL Nucleated RBCs (0-0) /100 WBC BUN (7-17) mg/dL Glucose (74-99) mg/dL POC Glucose (mg/dL) 162 H 145 H 189 H (75-99) mg/dL Calcium (8.4-10.2) mg/dL Phosphorus (2.5-4.5) mg/dL Total Protein (6.3-8.2) g/dL Albumin (3.5-5.0) g/dL Laboratory Results WBC 14.3 k/uL (3.8-10.6) H 01/17/18 07:08 RBC 3.17 m/uL (3.80-5.40) L 01/17/18 07:08 Hgb 9.8 gm/dL (11.4-16.0) L 01/17/18 07:08 Hct 30.7 % (34.0-46.0) L 01/17/18 07:08 MCV 96.9 fL (80.0-100.0) 01/17/18 07:08 MCH 31.0 pg (25.0-35.0) 01/17/18 07:08 MCHC 32.0 g/dL (31.0-37.0) 01/17/18 07:08 RDW 14.8 % (11.5-15.5) 01/17/18 07:08 Plt Count 106 k/uL (150-450) L 01/17/18 07:08 Eosinophils % (Manual) 1 % 01/13/18 04:00 Basophils % (Manual) 1 % 01/05/18 08:50 Neutrophils % (Manual) 11 % 01/17/18 07:08 Metamyelocytes % 2 % 01/13/18 04:00 Band Neutrophils % 1 % 01/17/18 07:08 Lymphocytes % (Manual) 19 % 01/17/18 07:08 Monocytes % (Manual) 70 % 01/17/18 07:08 Myelocytes % 1 % 01/17/18 07:08 Promyelocytes % 1 % 01/15/18 08:45 Blast Cells % 2 % 01/15/18 08:45 Neutrophils # (Manual) 1.70 k/uL (1.3-7.7) 01/17/18 07:08 Eosinophils # (Manual) 0.11 k/uL (0-0.7) 01/13/18 04:00 Lymphocytes # (Manual) 2.72 k/uL (1.0-4.8) 01/17/18 07:08 Basophils # (Manual) 0.03 k/uL (0-0.2) 01/05/18 08:50 Metamyelocytes # (Man) 0.22 k/uL (0) H 01/13/18 04:00 Monocytes # (Manual) 10.01 k/uL (0-1.0) H 01/17/18 07:08 Myelocytes # (Manual) 0.14 k/uL (0) H 01/17/18 07:08 Promyelocytes # (Man) 0.28 k/uL (0) H 01/15/18 08:45 Pathologist Review See comment A 01/05/18 08:50 Blast Cells # (Man) 0.56 k/uL (0) H 01/15/18 08:45 Nucleated RBCs 2 /100 WBC (0-0) H 01/17/18 07:08 Manual Slide Review Performed 01/17/18 07:08 RBC Morphology Normal 01/13/18 04:00 Hypochromasia (manual) Present 01/11/18 04:15 Macrocytosis Slight 01/10/18 08:08 Poikilocytosis (manual Present 01/17/18 07:08 Anisocytosis (manual) Present 01/15/18 08:45 PT 10.6 sec (9.0-12.0) 01/16/18 07:23 INR 1.1 (<1.2) 01/16/18 07:23 APTT 22.6 sec (22.0-30.0) 01/16/18 07:23 Sample Site vader 01/10/18 14:10 ABG pH 7.32 (7.35-7.45) L 01/10/18 14:10 ABG pCO2 55 mmHg (35-45) H 01/10/18 14:10 ABG pO2 106 mmHg (83-108) 01/10/18 14:10 ABG HCO3 28 mmol/L (21-25) H 01/10/18 14:10 ABG Total CO2 30 mmol/L (19-24) H 01/10/18 14:10 ABG O2 Saturation 97.9 % (94-97) H 01/10/18 14:10 ABG Base Excess 2.3 mmol/L 01/10/18 14:10 Bk Test no 01/10/18 14:10 FiO2 100 % 01/10/18 14:10 Sodium 140 mmol/L (137-145) 01/17/18 07:08 Potassium 4.2 mmol/L (3.5-5.1) 01/17/18 07:08 Chloride 104 mmol/L (98-107) 01/17/18 07:08 Carbon Dioxide 29 mmol/L (22-30) 01/17/18 07:08 Anion Gap 7 mmol/L 01/17/18 07:08 BUN 23 mg/dL (7-17) H 01/17/18 07:08 Creatinine 0.83 mg/dL (0.52-1.04) 01/17/18 07:08 Est GFR (CKD-EPI)AfAm >90 (>60 ml/min/1.73 sqM) 01/17/18 07:08 Est GFR (CKD-EPI)NonAf 80 (>60 ml/min/1.73 sqM) 01/17/18 07:08 Glucose 108 mg/dL (74-99) H 01/17/18 07:08 POC Glucose (mg/dL) 189 mg/dL (75-99) H 01/17/18 19:57 POC Glu [employer] Officer GARCIA Dana Polanco 01/17/18 19:[address] Glu mg/dL 177 01/05/18 08:50 Hemoglobin A1c 7.8 % (4.0-6.0) H 01/05/18 08:50 Lactic Ac Sepsis Rflx Y 01/04/18 20:51 Plasma Lactic Acid Bereket 0.8 mmol/L (0.7-2.0) 01/04/18 23:55 Uric Acid 6.7 mg/dL (3.7-7.4) 01/17/18 07:08 Calcium 8.0 mg/dL (8.4-10.2) L 01/17/18 07:08 Phosphorus 5.2 mg/dL (2.5-4.5) H 01/17/18 07:08 Magnesium 2.2 mg/dL (1.6-2.3) 01/15/18 08:45 Total Bilirubin 0.5 mg/dL (0.2-1.3) 01/17/18 07:08 AST 19 U/L (14-36) 01/17/18 07:08 ALT 34 U/L (9-52) 01/17/18 07:08 Alkaline Phosphatase 70 U/L (38-126) 01/17/18 07:08 Total Creatine Kinase 49 U/L (30-135) 01/04/18 20:00 CK-MB (CK-2) <0.2 ng/mL (0.0-2.4) 01/04/18 20:00 CK-MB (CK-2) Rel Index 01/04/18 20:00 Troponin I <0.012 ng/mL (0.000-0.034) 01/04/18 20:00 NT-Pro-B Natriuret Pep 576 pg/mL 01/06/18 08:35 Total Protein 6.0 g/dL (6.3-8.2) L 01/17/18 07:08 Albumin 3.2 g/dL (3.5-5.0) L 01/17/18 07:08 Angiotensin Convert Enz 29 U/L (8-52) 01/12/18 04:39 Urine Color Yellow 01/04/18 20:00 Urine Appearance Clear (Clear) 01/04/18 20:00 Urine pH 7.0 (5.0-8.0) 01/04/18 20:00 Ur Specific Viking 1.010 (1.001-1.035) 01/04/18 20:00 Urine Protein Negative (Negative) 01/04/18 20:00 Urine Glucose (UA) Negative (Negative) 01/04/18 20:00 Urine Ketones Negative (Negative) 01/04/18 20:00 Urine Blood Negative (Negative) 01/04/18 20:00 Urine Nitrite Negative (Negative) 01/04/18 20:00 Urine Bilirubin Negative (Negative) 01/04/18 20:00 Urine Urobilinogen <2.0 mg/dL (<2.0) 01/04/18 20:00 Ur Leukocyte Esterase Negative (Negative) 01/04/18 20:00 Fluid Source Bronchial Wash 01/10/18 11:38 Fluid Color Colorless 01/10/18 11:38 Fluid Appearance Blood Tinged 01/10/18 11:38 Fluid RBC 680 /uL 01/10/18 11:38 Fluid Nucleated Cells 20 /uL 01/10/18 11:38 Fluid Polynuclear WBCs 64 % 01/10/18 11:38 Fluid Mononuclear WBCs 35 % 01/10/18 11:38 Fluid Eosinophils 1 % 01/10/18 11:38 c-ANCA <1:20 Titer (<1:20) 01/12/18 04:39 p-ANCA <1:20 Titer (<1:20) 01/12/18 04:39 Urine Legionella Ag Not detected (Not detected) 01/06/18 16:51 Mycoplasma pneumon IgM 0.22 INDEX (<=0.90) 01/06/18 08:35 Virus Source See Below 01/10/18 11:38 Viral Test See Below 01/10/18 11:38 Virus Analysis Interp See Below 01/10/18 11:38 Flow Results See Path Report 01/10/18 12:00 Miscellaneous Test Pneumocystis PCR 01/10/18 11:38 Misc Test Result See comment 01/10/18 11:38 Microbiology 01/10/18 11:38 Lung - Left Upper Lobe Fungal Culture - Preliminary Shae albicans 01/06/18 18:42 Blood Blood Culture - Final No Growth after 144 hours 01/06/18 18:20 Blood Blood Culture - Final No Growth after 144 hours 01/10/18 11:38 Bronchial Washings - Left Gram Stain - Final 01/10/18 11:38 Bronchial Washings - Left Bronchial Washings Culture - Final Shae albicans 01/10/18 08:00 Sputum Gram Stain - Final 01/10/18 08:00 Sputum Sputum Culture - Final Shae albicans 01/10/18 11:38 Lung - Left Upper Lobe Acid Fast Bacilli Smear - Final 01/10/18 11:38 Lung - Left Upper Lobe Acid Fast Bacilli Culture - Preliminary 01/04/18 20:00 Blood Blood Culture - Final No Growth after 144 hours 01/04/18 20:00 Urine,Voided Urine Culture - Final Assessment and Plan (1) Pneumonia Narrative/Plan: This pleasant 53-year-old woman is have underlying asthma and last time she was ill she had cellulitis prior to that she had influenza B and exacerbation of her asthma. Now presents with progressive acute illness. Has been seen in the outpatient setting by oncology because of leukopenia. Workup had been started. Patient is not having difficulties with worsening leukopenia anemia and bleeding. She remains acutely ill with pneumonia and is also having difficulties with diarrhea. The patient has now been seen again by oncology and the peripheral smear is markedly abnormal with blasts that are evident and consequently they are planning for the bone marrow biopsy and aspirate as soon as they possibly can. At this time she is on broad-spectrum antibiotic therapy. Her fevers are controlled and she is stable. Certainly if she has acute leukemia will be worried about an Aspergillus infection. Galactomannan antigen testing is requested at this time to guide treatment. 01/10/2018 the patient is now status post bronchoscopy and has remained intubated sedated and mechanically ventilated, bone marrow aspiration also performed. Findings the bronchoscopy to further help direct antimicrobial therapy including the potential addition of antifungal therapy for Aspergillus. She fortunately is quite comfortable at this point in time. She is profoundly ill and await the bone marrow results determine if there is a significant derangement of the bone marrow. Is on Merrem and is not febrile but has progressive leukopenia. 01/13/2018 the patient is now markedly improved such that she is extubated sitting upright in a chair and has had her meal without difficulties. Bronchoscopy was performed and she did require transient intubation, since extubation she is feeling better. Respiratory status improved. She is titrated to 2 liters nasal cannula and does not feel short of breath at rest. Does not have any significant new discomforts. The bone marrow aspiration results remain pending, peripheral blood showed about 10% blast, and now 55% monocytes. The oncology input is also pending at this time. We'll complete 7 days of meropenem. A fungal evaluation does not reveal evidence of aspergillosis, she is also negative for Legionella and Mycoplasma. 01/14/2018 patient remains improved but is still quite short of breath with activity requiring O2 to ambulate. However she certainly has had improvement of her respiratory status. Cultures are negative so far. The case is discussed with the oncologist, the bone marrow aspiration is still pending at this point in time but they agree that there is evidence of blasts in many monocytes that are atypical and concerns for underlying myelomonocytic disease. Hopefully this will be back in the morning and they can discuss with her the plan for treatment. As noted 7 days of meropenem are being requested to complete the treatment of her pneumonia is allowed a marked improvement. Aspergillus testing is negative by BAL, Aspergillus antigen and galactomannan testing. 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 The BAL testing hasl now been completed and is negative for Aspergillus, bacterial pathogens, pneumocystis, and virus. Is completing her course of meropenem for her recent pneumonia. Receiving salt and soda for mouth hygiene and will be monitored for other infections. She has now on chemotherapy for her AML. Current Visit: Yes Status: Acute Code(s): J18.9 - PNEUMONIA, UNSPECIFIED ORGANISM SNOMED Code(s): 916812203 (2) Pancytopenia Current Visit: Yes Status: Acute Priority: High Code(s): D61.818 - OTHER PANCYTOPENIA SNOMED Code(s): 444520890 (3) Obesity, Class III, BMI 40-49.9 (morbid obesity) Current Visit: No Status: Acute Code(s): E66.01 - MORBID (SEVERE) OBESITY DUE TO EXCESS CALORIES SNOMED Code(s): 228172559
[2018-01-17] MEDS: CYTARABINE IV SCH (22:53)
[2018-01-17] MEDS: DAUNORUBICIN IV SCH (22:53)
[2018-01-17] MEDS: SODIUM CHLORIDE 0.9% IV SCH (22:53)
[2018-01-17] MEDS: ZOLPIDEM 10 MG TAB PO SCH (22:54)
[2018-01-18] MEDS: MEROPENEM 2 GM in SODIUM CHLORIDE 0.9% 100 ML IVPB SCH ×4 (00:05→23:06)
[2018-01-18] MEDS: NYSTATIN 100,000 UNIT/ML SUSP 500,000 UNIT/5 ML CUP PO SCH ×5 (00:05→23:07)
[2018-01-18] MEDS: HEPARIN SODIUM,PORCINE 5,000 UNIT/ML 1 ML VIAL SQ SCH ×4 (00:10→23:08)
[2018-01-18] MEDS: LEVOTHYROXINE 125 MCG TAB PO SCH (06:09)
[2018-01-18 06:52] LABS: HCT 26.2 % (34.0-46.0); HGB 8.5 gm/dL (11.4-16.0); MCH 31.7 pg (25.0-35.0); MCHC 32.5 g/dL (31.0-37.0); MCV 97.4 fL (80.0-100.0); Mean Platelet Volume 7.5; Platelet Count 70 k/uL (150-450); RBC 2.69 m/uL (3.80-5.40); RDW 15.3 % (11.5-15.5); WBC 3.1 k/uL (3.8-10.6)
[2018-01-18 06:57] LABS: Glucose,Whole Blood 92 mg/dL (75-99)
[2018-01-18 07:00] LABS: Albumin 2.9 g/dL (3.5-5.0); Phosphorus 5.3 mg/dL (2.5-4.5); Potassium 4.3 mmol/L (3.5-5.1); Total Bilirubin 0.5 mg/dL (0.2-1.3); Total Protein 5.4 g/dL (6.3-8.2); Uric Acid 5.8 mg/dL (3.7-7.4)
[2018-01-18] MEDS: INSULIN ASPART 100 UNIT/ML 1 ML 10 ML VIAL SQ SCH ×7 (07:02→20:56)
[2018-01-18] MEDS: SODIUM CHLORIDE 0.9% 1,000 ML IV SCH ×2 (07:43→16:35)
[2018-01-18] MEDS: METOPROLOL TARTRATE 50 MG TAB PO SCH ×2 (07:44→20:56)
[2018-01-18] MEDS: PANTOPRAZOLE 40 MG/10 ML VIAL IV SCH (07:44)
[2018-01-18] MEDS: FLUTICASONE 50MCG/SPRAY NASAL 16GM EA NOSTRIL SCH (07:44)
[2018-01-18] MEDS: predniSONE 10 MG TAB PO SCH (07:44)
[2018-01-18] MEDS: LORATADINE 10 MG TAB PO SCH (07:44)
[2018-01-18] MEDS: busPIRone HCl 5 MG TAB PO SCH ×2 (07:45→20:56)
[2018-01-18] MEDS: POTASSIUM CHLORIDE ER 20 MEQ TAB.ER PO SCH ×2 (07:45→20:56)
[2018-01-18] MEDS: GABAPENTIN 300 MG CAP PO SCH ×3 (07:45→23:08)
[2018-01-18] MEDS: ASPIRIN 81 MG PO SCH (07:45)
[2018-01-18] MEDS: ESCITALOPRAM 10 MG TAB PO SCH (07:45)
[2018-01-18] MEDS: CALCIUM CARB-VIT D 500MG-200UN 1 EACH TAB PO SCH (07:45)
[2018-01-18] MEDS: FERROUS SULFATE 325 MG TAB PO SCH (07:45)
[2018-01-18] MEDS: ATORVASTATIN 20 MG TAB PO SCH (07:46)
[2018-01-18] MEDS: ALLOPURINOL 300 MG TAB PO SCH ×2 (07:46→20:56)
[2018-01-18] MEDS: AMMONIUM LACTATE 12% LOTION 225 GM BTL TOPICAL SCH ×2 (07:46→20:56)
[2018-01-18] MEDS: SYMBICORT 160-4.5 MCG INHALER INHALATION SCH ×2 (08:31→20:06)
--- NOTE | 2018-01-18 09:01 | P.PN ---
Subjective Progress Note Date: 01/18/18 The patient is on day #3 of induction chemotherapy for her AML with the 7+3 regimen. She is tolerating treatment well subjectively. She is comfortable at rest, but does get short of breath on exertion with drop in O2 saturation. She denies any significant cough, mouth sores, nausea/vomiting/diarrhea/obvious bleeding Objective - Vital Signs Vital signs: Vital Signs Temp 98.4 F 01/18/18 05:00 Pulse 79 01/18/18 05:00 Resp 16 01/18/18 05:00 BP 111/58 01/18/18 05:00 Pulse Ox 85 L 01/18/18 05:00 Intake & Output 01/17/18 01/18/18 01/18/18 18:59 06:59 18:59 Intake Total 1068 1860 Balance 1068 1860 Weight 136.7 kg Intake: IV 900 500 Meropenem 2 gm In Sodium 100 100 Chloride 0.9% 100 ml @ 200 mls/hr IVPB Q8HR [facility] Rx#:[id number] Sodium Chloride 0.9% 1, 800 400 000 ml @ 100 mls/hr IV . Q10H [facility] Rx#:[id number] Intake, IV Titration 168 50 Amount Cytarabine/Pf 220 mg In 168 Sodium Chloride 0.9% 500 ml @ 21.292 mls/hr IV Q24H [facility] Rx#:[id number] Ondansetron 8 mg In 50 Sodium Chloride 0.9% 50 ml @ 100 mls/hr IVPB BID PRN Rx#:[id number] Oral 1310 Other: Voiding Method Toilet Bedside Commode # Voids 2 ABP, PAP, CO, CI - Last Documented Arterial Blood Pressure 133/61 - Constitutional General appearance: Present: no acute distress - EENT Eyes: Present: EOMI ENT: Present: hearing grossly normal, normal oropharynx - Respiratory Respiratory: bilateral: CTA - Cardiovascular Rhythm: regular Heart sounds: normal: S1, S2 - Gastrointestinal General gastrointestinal: Present: normal bowel sounds, soft - Musculoskeletal Musculoskeletal: Present: strength equal bilaterally - Psychiatric Psychiatric: Present: A&O x's 3, appropriate affect - Labs CBC & Chem 7: 01/18/18 06:07 01/18/18 06:07 Labs: Abnormal Lab Results - Last 24 Hours (Table) 01/17/18 01/17/18 01/17/18 Range/Units 07:08 11:37 17:26 WBC 14.3 H (3.8-10.6) k/uL RBC (3.80-5.40) m/uL Hgb (11.4-16.0) gm/dL Hct (34.0-46.0) % Monocytes # (Manual) 10.01 H (0-1.0) k/uL Myelocytes # (Manual) 0.14 H (0) k/uL Nucleated RBCs 2 H (0-0) /100 WBC Chloride (98-107) mmol/L BUN (7-17) mg/dL POC Glucose (mg/dL) 162 H 145 H (75-99) mg/dL Calcium (8.4-10.2) mg/dL Phosphorus (2.5-4.5) mg/dL Total Protein (6.3-8.2) g/dL Albumin (3.5-5.0) g/dL 01/17/18 01/18/18 01/18/18 Range/Units 19:57 06:07 06:07 WBC 3.1 L (3.8-10.6) k/uL RBC 2.69 L (3.80-5.40) m/uL Hgb 8.5 L (11.4-16.0) gm/dL Hct 26.2 L (34.0-46.0) % Monocytes # (Manual) (0-1.0) k/uL Myelocytes # (Manual) (0) k/uL Nucleated RBCs (0-0) /100 WBC Chloride 108 H (98-107) mmol/L BUN 27 H (7-17) mg/dL POC Glucose (mg/dL) 189 H (75-99) mg/dL Calcium 8.0 L (8.4-10.2) mg/dL Phosphorus 5.3 H (2.5-4.5) mg/dL Total Protein 5.4 L (6.3-8.2) g/dL Albumin 2.9 L (3.5-5.0) g/dL Assessment and Plan (1) Acute myeloid leukemia Narrative/Plan: The patient has started induction chemotherapy with the 7+3 regimen. She is on day #3 today. She is tolerating treatment well subjectively so far. Counts and chemistries are being monitored. No evidence of tumor lysis so far. Continue chemotherapy with ongoing monitoring Current Visit: Yes Status: Acute Code(s): C92.00 - ACUTE MYELOBLASTIC LEUKEMIA, NOT HAVING ACHIEVED REMISSION SNOMED Code(s): 41112916 (2) Pancytopenia Narrative/Plan: Blood counts are starting to decline, especially WBC, with initiation of chemotherapy. This is expected. So far counts are in a safe range and transfusion support is not required. Continue to monitor and transfuse as needed Current Visit: Yes Status: Acute Priority: High Code(s): D61.818 - OTHER PANCYTOPENIA SNOMED Code(s): 629865802 (3) Pneumonia Narrative/Plan: The patient does get short of breath on exertion, but denies any chest pain or cough. She is fairly comfortable at rest. Continue antibiotics according to ID Current Visit: Yes Status: Acute Code(s): J18.9 - PNEUMONIA, UNSPECIFIED ORGANISM SNOMED Code(s): 453296310
[2018-01-18] MEDS: FUROSEMIDE 10 MG/ML 2 ML VIAL IV SCH ×2 (09:42→21:03)
[2018-01-18] MEDS: SALT AND SODA MOUTHWASH 1,000 ML PO SCH ×4 (09:43→23:06)
[2018-01-18 10:51] LABS: Blast Cells # (M) 0.03 k/uL (0); Eosinophils # (M) 0.03 k/uL (0-0.7); Lymphocytes # (M) 0.81 k/uL (1.0-4.8); Monocytes # (M) 1.61 k/uL (0-1.0); Neutrophils # (M) 0.65 k/uL (1.3-7.7); Neutrophils % (M) 21 %; Nucleated Red Blood Cells 0 /100 WBC (0-0); Total Cells Counted 200
[2018-01-18 11:13] LABS: Glucose,Whole Blood 175 mg/dL (75-99)
[2018-01-18] MEDS: CYANOCOBALAMIN 500 MCG TAB PO SCH (12:41)
--- NOTE | 2018-01-18 14:35 | PN ---
PROGRESS NOTE DATE OF SERVICE: 01/18/2018 This 53-year-old woman was admitted with acute hypoxic respiratory failure with bilateral infiltrates, had possible pneumonia. The patient is on broad-spectrum IV antibiotics. No chest pain. No palpitations. The patient is slightly better. Chemotherapy has been initiated. EXAM: Alert and oriented x3. Pulse 75, blood pressure 140/63, respirations 16, temperature 98.2, pulse ox 91% on 2 L. HEENT: Conjunctivae normal. NECK: No jugular venous distention. CARDIOVASCULAR: S1, S2. RESPIRATORY: Breath sounds diminished in the bases. A few scattered rhonchi and crackles. ABDOMEN: Soft, nontender. NERVOUS SYSTEM: No focal deficits. LABS: WBC 3.2, hemoglobin is 8.5, albumin is 2.9. ASSESSMENT: 1. Acute hypoxic respiratory failure with bilateral infiltrates, possible acute pneumonia gram-negative with broad-spectrum antibiotics. 2. Acute AML on chemotherapy initiated with sepsis with lactic acidosis present on admission. 3. Chronic bronchial asthma. 4. Hypertension. 5. Hyperlipidemia. 6. History of diabetes type 2. 7. Morbid obesity. 8. Gastroesophageal reflux disease. 9. Chronic low back pain. 10.Hypothyroidism. 11.Anxiety, depression. RECOMMENDATIONS AND DISCUSSION: I recommend to continue current management and symptomatic treatment. Otherwise continue the bronchodilators. Guarded prognosis. Continue antibiotics. Continue the chemotherapy per Hematology-Oncology. Further recommendations to follow. MMODL / IJN: [id number] /
--- NOTE | 2018-01-18 16:58 | P.PN ---
Subjective Progress Note Date: 01/18/18 This is a 53-year-old female patient known to ID service as she was seen during her hospitalization in July of this year. At that time she was treated for acute asthma exacerbation complicated by influenza B tracheobronchitis. ID was consulted regarding a cellulitis of the lower extremities. Patient was discharged home on Keflex. Regarding her legs, patient states that they occasionally get red but not a significant problem at this time. Patient states that she has had for about the last month difficulty with ambulating very far and early fatigue and shortness of breath. She states she has been sick for about one week or more with fever and worsening shortness of breath along with cough. She came into [facility] emergency center and on CAT scan of the chest done on 01/06 showed new extensive bilateral pulmonary airspace infiltrate consistent with acute asthma. Increased hair a tracheal adenopathy. She was originally treated with Levaquin and has been switched over to meropenem by Dr. Rubalcava. Patient is also been febrile with pancytopenia. Mycoplasma pneumoniae IgM was normal and Legionella antigen was not detected. Flow cytology recommends consideration of a marrow examination. Consult has been added for oncology. Patient has had ongoing difficulty with hypoxia and remains on high flow nasal cannula at 10 L pulse oxing 86%. She states she becomes extremely winded is getting to the commode chair. Her course has been complicated by episode of epistaxis which is now controlled and also initially vomiting which is also been resolved. She does state that she has 4 episodes of diarrhea today. 01/10/2018 patient has had some progression of her status in that her pulmonary status has not improved and her leukopenia and anemia have worsened. She has been seen by both pulmonary critical care and oncology and constantly has now undergone a bronchoscopy and a bone marrow aspiration. She has respiratory failure and required ongoing mechanical ventilation after her bronchoscopy,is in the intensive care unit. She is sedated but not requiring vasopressor therapy. January 13 the patient has had significant improvement of her status. The patient has tolerated extubation and is now down to 2 L nasal cannula with adequate oxygenation. The levels improved. She is eating without great difficulties. Shortness of breath at rest is improved. Denies discomforts. She did have a bit of a nosebleed earlier that has resolved. Potentially also had some vaginal bleeding that is also improved. 01/14/2018 patient is feeling somewhat better but remains on supplemental oxygen because of her shortness of breath. Pneumonia seems to be improving with current therapy. She relates that diarrhea has improved other than her profound fatigue she is not having new acute symptoms. Appetite is adequate without nausea or emesis. 01/17/2018 there is no been confirmation for acute myelogenous leukemia and she has been started on the 7+3 regimen. She's having no acute difficulties yet at this point in time. Her shortness of breath is markedly improved. She's having no fevers or chills. No acute bleeding at this time. Vaginal bleeding is improved. January 18 2018 patient is feeling relatively well this time. She is less short of breath. Tolerating chemotherapy without nausea or emesis. No fevers or chills. Objective - Vital Signs Vital signs: Vital Signs Temp 97.7 F 01/18/18 16:50 Pulse 62 01/18/18 16:00 Resp 12 01/18/18 16:00 BP 128/84 01/18/18 16:00 Pulse Ox 92 L 01/18/18 16:00 Intake & Output 01/17/18 01/18/18 01/18/18 18:59 06:59 18:59 Intake Total 1068 1860 1075.36 Balance 1068 1860 1075.36 Weight 136.7 kg Intake: IV 900 500 900 Meropenem 2 gm In Sodium 100 100 100 Chloride 0.9% 100 ml @ 200 mls/hr IVPB Q8HR [facility] Rx#:[id number] Sodium Chloride 0.9% 1, 800 400 800 000 ml @ 100 mls/hr IV . Q10H [facility] Rx#:[id number] Intake, IV Titration 168 50 175.36 Amount Cytarabine/Pf 220 mg In 168 175.36 Sodium Chloride 0.9% 500 ml @ 21.292 mls/hr IV Q24H [facility] Rx#:[id number] Ondansetron 8 mg In 50 Sodium Chloride 0.9% 50 ml @ 100 mls/hr IVPB BID PRN Rx#:[id number] Oral 1310 Other: Voiding Method Toilet Toilet Bedside Commode Bedside Commode # Voids 2 # Bowel Movements 3 ABP, PAP, CO, CI - Last Documented Arterial Blood Pressure 133/61 - Exam Gen: This is a morbidly obese 53-year-old female. She is status post bronchoscopy as well as bone marrow aspiration. She required intubation for the bronchoscopy and she is now extubated and doing well. His transfer to oncology and started chemotherapy and has a good attitude. HEENT: Head is atraumatic, normocephalic. Pupils equal, round. Sclerae is anicteric. Conjunctiva pink. Mucous members of the mouth are moist. No thrush noted. NECK: Supple. No JVD. No lymphadenopathy. No thyromegaly. LUNGS: Diminished bilaterally. No wheezes. Mild intercostal retractions. HEART: Regular rate and rhythm. No murmur. ABDOMEN: Soft. Bowel sounds are present. No masses. No tenderness. EXTREMITIES: Trace bilateral pedal edema. No calf tenderness. Dorsalis pedis + 2 bilaterally. NEUROLOGICAL: Awake alert oriented person place and time with no acute gross focal sensory motor deficits - Labs CBC & Chem 7: 01/18/18 06:07 01/18/18 06:07 Labs: Abnormal Lab Results - Last 24 Hours (Table) 01/17/18 01/17/18 01/18/18 Range/Units 17:26 19:57 06:07 WBC 3.1 L (3.8-10.6) k/uL RBC 2.69 L (3.80-5.40) m/uL Hgb 8.5 L (11.4-16.0) gm/dL Hct 26.2 L (34.0-46.0) % Plt Count 70 L (150-450) k/uL Neutrophils # (Manual) 0.65 L (1.3-7.7) k/uL Lymphocytes # (Manual) 0.81 L (1.0-4.8) k/uL Monocytes # (Manual) 1.61 H (0-1.0) k/uL Blast Cells # (Man) 0.03 H (0) k/uL Chloride (98-107) mmol/L BUN (7-17) mg/dL POC Glucose (mg/dL) 145 H 189 H (75-99) mg/dL Calcium (8.4-10.2) mg/dL Phosphorus (2.5-4.5) mg/dL Total Protein (6.3-8.2) g/dL Albumin (3.5-5.0) g/dL 07/28/18 07/28/18 Range/Units 06:07 11:11 WBC (3.8-10.6) k/uL RBC (3.80-5.40) m/uL Hgb (11.4-16.0) gm/dL Hct (34.0-46.0) % Plt Count (150-450) k/uL Neutrophils # (Manual) (1.3-7.7) k/uL Lymphocytes # (Manual) (1.0-4.8) k/uL Monocytes # (Manual) (0-1.0) k/uL Blast Cells # (Man) (0) k/uL Chloride 108 H (98-107) mmol/L BUN 27 H (7-17) mg/dL POC Glucose (mg/dL) 175 H (75-99) mg/dL Calcium 8.0 L (8.4-10.2) mg/dL Phosphorus 5.3 H (2.5-4.5) mg/dL Total Protein 5.4 L (6.3-8.2) g/dL Albumin 2.9 L (3.5-5.0) g/dL Assessment and Plan (1) Pneumonia Narrative/Plan: This pleasant 53-year-old woman is have underlying asthma and last time she was ill she had cellulitis prior to that she had influenza B and exacerbation of her asthma. Now presents with progressive acute illness. Has been seen in the outpatient setting by oncology because of leukopenia. Workup had been started. Patient is not having difficulties with worsening leukopenia anemia and bleeding. She remains acutely ill with pneumonia and is also having difficulties with diarrhea. The patient has now been seen again by oncology and the peripheral smear is markedly abnormal with blasts that are evident and consequently they are planning for the bone marrow biopsy and aspirate as soon as they possibly can. At this time she is on broad-spectrum antibiotic therapy. Her fevers are controlled and she is stable. Certainly if she has acute leukemia will be worried about an Aspergillus infection. Galactomannan antigen testing is requested at this time to guide treatment. 01/10/2018 the patient is now status post bronchoscopy and has remained intubated sedated and mechanically ventilated, bone marrow aspiration also performed. Findings the bronchoscopy to further help direct antimicrobial therapy including the potential addition of antifungal therapy for Aspergillus. She fortunately is quite comfortable at this point in time. She is profoundly ill and await the bone marrow results determine if there is a significant derangement of the bone marrow. Is on Merrem and is not febrile but has progressive leukopenia. 01/13/2018 the patient is now markedly improved such that she is extubated sitting upright in a chair and has had her meal without difficulties. Bronchoscopy was performed and she did require transient intubation, since extubation she is feeling better. Respiratory status improved. She is titrated to 2 liters nasal cannula and does not feel short of breath at rest. Does not have any significant new discomforts. The bone marrow aspiration results remain pending, peripheral blood showed about 10% blast, and now 55% monocytes. The oncology input is also pending at this time. We'll complete 7 days of meropenem. A fungal evaluation does not reveal evidence of aspergillosis, she is also negative for Legionella and Mycoplasma. 01/14/2018 patient remains improved but is still quite short of breath with activity requiring O2 to ambulate. However she certainly has had improvement of her respiratory status. Cultures are negative so far. The case is discussed with the oncologist, the bone marrow aspiration is still pending at this point in time but they agree that there is evidence of blasts in many monocytes that are atypical and concerns for underlying myelomonocytic disease. Hopefully this will be back in the morning and they can discuss with her the plan for treatment. As noted 7 days of meropenem are being requested to complete the treatment of her pneumonia is allowed a marked improvement. Aspergillus testing is negative by BAL, Aspergillus antigen and galactomannan testing. 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 The BAL testing hasl now been completed and is negative for Aspergillus, bacterial pathogens, pneumocystis, and virus. Is completing her course of meropenem for her recent pneumonia. Receiving salt and soda for mouth hygiene and will be monitored for other infections. She has now on chemotherapy for her AML. 01/18/2018 patient has begun chemotherapy and is on the 3 of the 7+3 protocol. Seems to tolerating it well. Not having fevers. His other couple days of antibiotic therapy with meropenem for her pneumonia. Overall is stable at this time. Leukocytosis is responding to the chemotherapy no blasts are noted in the most recent smear. Current Visit: Yes Status: Acute Code(s): J18.9 - PNEUMONIA, UNSPECIFIED ORGANISM SNOMED Code(s): 288128760 (2) Pancytopenia Current Visit: Yes Status: Acute Priority: High Code(s): D61.818 - OTHER PANCYTOPENIA SNOMED Code(s): 858581318 (3) Obesity, Class III, BMI 40-49.9 (morbid obesity) Current Visit: No Status: Acute Code(s): E66.01 - MORBID (SEVERE) OBESITY DUE TO EXCESS CALORIES SNOMED Code(s): 506282551
[2018-01-18 17:02] LABS: Glucose,Whole Blood 137 mg/dL (75-99)
[2018-01-18 20:13] LABS: Glucose,Whole Blood 135 mg/dL (75-99)
[2018-01-18] MEDS: INSULIN DETEMIR 100 UNIT/ML 10 ML VIAL SQ SCH (20:55)
[2018-01-18] MEDS: MONTELUKAST 10 MG TAB PO SCH (20:56)
[2018-01-18] MEDS: FAMOTIDINE 20 MG/2 ML VIAL IV SCH (22:02)
[2018-01-18] MEDS: ONDANSETRON 16 MG in SODIUM CHLORIDE 0.9% 50 ML IVPB SCH (22:02)
[2018-01-18] MEDS: DAUNORUBICIN IV SCH (23:05)
[2018-01-18] MEDS: ZOLPIDEM 10 MG TAB PO SCH (23:05)
[2018-01-18] MEDS: CYTARABINE IV SCH (23:06)
[2018-01-18] MEDS: SODIUM CHLORIDE 0.9% IV SCH (23:06)
[2018-01-19] MEDS: SODIUM CHLORIDE 0.9% 1,000 ML IV SCH ×2 (05:18→17:22)
[2018-01-19] MEDS: LEVOTHYROXINE 125 MCG TAB PO SCH (06:21)
[2018-01-19 07:04] LABS: Glucose,Whole Blood 102 mg/dL (75-99)
[2018-01-19] MEDS: INSULIN ASPART 100 UNIT/ML 1 ML 10 ML VIAL SQ SCH ×7 (07:21→20:49)
[2018-01-19] MEDS: MEROPENEM 2 GM in SODIUM CHLORIDE 0.9% 100 ML IVPB SCH ×3 (07:52→23:58)
[2018-01-19] MEDS: NYSTATIN 100,000 UNIT/ML SUSP 500,000 UNIT/5 ML CUP PO SCH ×4 (07:53→20:51)
[2018-01-19] MEDS: ESCITALOPRAM 10 MG TAB PO SCH (07:53)
[2018-01-19] MEDS: FLUTICASONE 50MCG/SPRAY NASAL 16GM EA NOSTRIL SCH (07:53)
[2018-01-19] MEDS: PANTOPRAZOLE 40 MG/10 ML VIAL IV SCH (07:53)
[2018-01-19] MEDS: HEPARIN SODIUM,PORCINE 5,000 UNIT/ML 1 ML VIAL SQ SCH ×2 (07:53→17:22)
[2018-01-19] MEDS: FUROSEMIDE 10 MG/ML 2 ML VIAL IV SCH ×2 (07:53→22:27)
[2018-01-19] MEDS: predniSONE 10 MG TAB PO SCH (07:54)
[2018-01-19] MEDS: POTASSIUM CHLORIDE ER 20 MEQ TAB.ER PO SCH ×2 (07:54→20:50)
[2018-01-19] MEDS: LORATADINE 10 MG TAB PO SCH (07:54)
[2018-01-19] MEDS: CALCIUM CARB-VIT D 500MG-200UN 1 EACH TAB PO SCH (07:54)
[2018-01-19] MEDS: ALLOPURINOL 300 MG TAB PO SCH ×2 (07:54→20:49)
[2018-01-19] MEDS: METOPROLOL TARTRATE 50 MG TAB PO SCH ×2 (07:54→20:48)
[2018-01-19] MEDS: ASPIRIN 81 MG PO SCH (07:54)
[2018-01-19] MEDS: FERROUS SULFATE 325 MG TAB PO SCH (07:54)
[2018-01-19] MEDS: ATORVASTATIN 20 MG TAB PO SCH (07:54)
[2018-01-19] MEDS: busPIRone HCl 5 MG TAB PO SCH ×2 (07:55→20:48)
[2018-01-19] MEDS: AMMONIUM LACTATE 12% LOTION 225 GM BTL TOPICAL SCH ×2 (07:55→20:52)
[2018-01-19] MEDS: GABAPENTIN 300 MG CAP PO SCH ×3 (07:55→20:51)
[2018-01-19] MEDS: SALT AND SODA MOUTHWASH 1,000 ML PO SCH ×4 (07:55→20:52)
[2018-01-19] MEDS: SYMBICORT 160-4.5 MCG INHALER INHALATION SCH ×2 (08:12→19:59)
[2018-01-19 09:13] LABS: HCT 28.1 % (34.0-46.0); MCH 30.7 pg (25.0-35.0); MCV 95.7 fL (80.0-100.0); Mean Platelet Volume 8.1; Platelet Count 65 k/uL (150-450); RBC 2.94 m/uL (3.80-5.40); RDW 14.7 % (11.5-15.5)
[2018-01-19 09:19] LABS: ALT 33 U/L (9-52); AST 20 U/L (14-36); Albumin 3.5 g/dL (3.5-5.0); Alkaline Phosphatase 62 U/L (38-126); Anion Gap 7 mmol/L; Blood Urea Nitrogen 25 mg/dL (7-17); Calcium 8.5 mg/dL (8.4-10.2); Carbon Dioxide 29 mmol/L (22-30); Chloride 106 mmol/L (98-107); Glucose 108 mg/dL (74-99); Phosphorus 3.9 mg/dL (2.5-4.5); Potassium 4.3 mmol/L (3.5-5.1); Sodium 142 mmol/L (137-145); Total Bilirubin 1.1 mg/dL (0.2-1.3); Total Protein 6.4 g/dL (6.3-8.2)
--- NOTE | 2018-01-19 09:40 | P.PN ---
Subjective Progress Note Date: 01/19/18 The patient is on day #4 of induction chemotherapy for AML with the 7+3 regimen. She continues to tolerate chemotherapy well subjectively, and denies any new complaints. Specifically, there is no history of fevers/chills/nausea/ vomiting/mouth sores/diarrhea. Objective - Vital Signs Vital signs: Vital Signs Temp 98.3 F 01/19/18 08:20 Pulse 81 01/19/18 08:20 Resp 16 01/19/18 08:20 BP 116/73 01/19/18 08:20 Pulse Ox 91 L 01/19/18 08:20 Intake & Output 01/18/18 01/19/18 01/19/18 18:59 06:59 18:59 Intake Total 1075.36 2490 Balance 1075.36 2490 Intake: IV 900 800 Meropenem 2 gm In Sodium 100 Chloride 0.9% 100 ml @ 200 mls/hr IVPB Q8HR [facility] Rx#:[id number] Sodium Chloride 0.9% 1, 800 800 000 ml @ 100 mls/hr IV . Q10H [facility] Rx#:[id number] Intake, IV Titration 175.36 150 Amount Cytarabine/Pf 220 mg In 175.36 Sodium Chloride 0.9% 500 ml @ 21.292 mls/hr IV Q24H [facility] Rx#:[id number] Meropenem 2 gm In Sodium 100 Chloride 0.9% 100 ml @ 200 mls/hr IVPB Q8HR [facility] Rx#:[id number] Ondansetron 8 mg In 50 Sodium Chloride 0.9% 50 ml @ 100 mls/hr IVPB BID PRN Rx#:[id number] Oral 1540 Other: Voiding Method Toilet Toilet Toilet Bedside Commode Bedside Commode Bedside Commode # Voids 2 # Bowel Movements 3 ABP, PAP, CO, CI - Last Documented Arterial Blood Pressure 133/61 - Constitutional General appearance: Present: no acute distress - EENT Eyes: Present: EOMI ENT: Present: hearing grossly normal, normal oropharynx - Respiratory Respiratory: left: diminished - Cardiovascular Rhythm: regular Heart sounds: normal: S1, S2 - Gastrointestinal General gastrointestinal: Present: normal bowel sounds, soft - Integumentary Integumentary: Present: normal - Neurologic Neurologic: Present: CNII-XII intact - Musculoskeletal Musculoskeletal: Present: strength equal bilaterally - Psychiatric Psychiatric: Present: A&O x's 3, appropriate affect - Labs CBC & Chem 7: 01/18/18 06:07 01/19/18 08:15 Labs: Abnormal Lab Results - Last 24 Hours (Table) 01/18/18 01/18/18 01/18/18 Range/Units 06:07 11:11 17:00 Plt Count 70 L (150-450) k/uL Neutrophils # (Manual) 0.65 L (1.3-7.7) k/uL Lymphocytes # (Manual) 0.81 L (1.0-4.8) k/uL Monocytes # (Manual) 1.61 H (0-1.0) k/uL Blast Cells # (Man) 0.03 H (0) k/uL BUN (7-17) mg/dL Glucose (74-99) mg/dL POC Glucose (mg/dL) 175 H 137 H (75-99) mg/dL 01/18/18 01/19/18 01/19/18 Range/Units 20:11 07:02 08:15 Plt Count (150-450) k/uL Neutrophils # (Manual) (1.3-7.7) k/uL Lymphocytes # (Manual) (1.0-4.8) k/uL Monocytes # (Manual) (0-1.0) k/uL Blast Cells # (Man) (0) k/uL BUN 25 H (7-17) mg/dL Glucose 108 H (74-99) mg/dL POC Glucose (mg/dL) 135 H 102 H (75-99) mg/dL Assessment and Plan (1) Acute myeloid leukemia Narrative/Plan: The patient is on induction chemotherapy with the 7+3 regimen. She is on day # 4 today. As noted above, tolerance of her regimen is reasonable so far. Continue to monitor with clinical exams and labs. No evidence of any tumor lysis so far. Continue chemotherapy per protocol Current Visit: Yes Status: Acute Code(s): C92.00 - ACUTE MYELOBLASTIC LEUKEMIA, NOT HAVING ACHIEVED REMISSION SNOMED Code(s): 46824873 (2) Pancytopenia Narrative/Plan: Blood counts are declining, as expected with induction chemotherapy. However counts remain in a safe range. No acute intervention required today. Continue to monitor with supportive transfusions as needed Current Visit: Yes Status: Acute Priority: High Code(s): D61.818 - OTHER PANCYTOPENIA SNOMED Code(s): 851092287 (3) Pneumonia Narrative/Plan: Respiratory status is stable, with no new complaints. Antibiotics per ID. Case discussed with the admitting service. The patient may need to go home on oxygen. Current Visit: Yes Status: Acute Code(s): J18.9 - PNEUMONIA, UNSPECIFIED ORGANISM SNOMED Code(s): 944196512
[2018-01-19 10:28] LABS: Lymphocytes # (M) 0.62 k/uL (1.0-4.8); Monocytes # (M) 0.31 k/uL (0-1.0); Neutrophils # (M) 0.18 k/uL (1.3-7.7); Neutrophils % (M) 16 %; Nucleated Red Blood Cells 0 /100 WBC (0-0); Total Cells Counted 100
[2018-01-19 10:42] LABS: WBC 1.1 k/uL (3.8-10.6)
[2018-01-19 11:16] LABS: Glucose,Whole Blood 208 mg/dL (75-99)
[2018-01-19] MEDS: CYANOCOBALAMIN 500 MCG TAB PO SCH (12:26)
[2018-01-19] MEDS ORDERED: SODIUM CHLORIDE 0.9% IV SCH ×2 (14:20→22:00)
[2018-01-19] MEDS ORDERED: CYTARABINE IV SCH ×2 (14:20→22:00)
--- NOTE | 2018-01-19 16:45 | PN ---
PROGRESS NOTE DATE OF SERVICE: 01/19/2018. This 53-year-old woman who was admitted with acute hypoxic respiratory failure also had AML. The patient started chemotherapy. No chest pain. No palpitations. No fever. PHYSICAL EXAM: Alert and oriented x3. Pulse is 63, blood pressure 124/82, respirations 16, temperature 98.2, pulse ox 93% on 2 L. HEENT: Conjunctivae normal. Oral mucosa moist. NECK: No jugular venous distention. No carotid bruit. No lymph node enlargement. CARDIOVASCULAR: S1, S2. RESPIRATORY: Breath sounds diminished in the bases. Bilateral scattered rhonchi and crackles. ABDOMEN: Soft, nontender. No mass palpable. LEGS: No edema. No swelling. NERVOUS SYSTEM: No focal deficits. LABS: WBC 1.1, hemoglobin is 9. ASSESSMENT: 1. Acute hypoxic respiratory failure with bilateral infiltrate with possible acute pneumonia gram-negative with broad-spectrum IV antibiotics. 2. Acute AML on chemotherapy initiated with sepsis with lactic acid, present on admission. 3. Chronic bronchial asthma. 4. Hypertension. 5. Hyperlipidemia. 6. History of diabetes mellitus type 2. 7. Morbid obesity. 8. Gastroesophageal reflux disease. 9. Chronic low back pain. 10.Hypothyroidism. 11.Anxiety, depression. RECOMMENDATIONS AND DISCUSSION: I recommend to continue current management and symptomatic treatment. Otherwise at this time, I will recommend continue with the antibiotics. Continue the rest of chemotherapy per Dr. Allen. Further recommendations to follow. MMODL / IJN: [id number] /
[2018-01-19 16:47] LABS: Glucose,Whole Blood 145 mg/dL (75-99)
[2018-01-19 20:13] LABS: Glucose,Whole Blood 155 mg/dL (75-99)
[2018-01-19] MEDS: INSULIN DETEMIR 100 UNIT/ML 10 ML VIAL SQ SCH (20:49)
[2018-01-19] MEDS: MONTELUKAST 10 MG TAB PO SCH (20:50)
[2018-01-19] MEDS: ONDANSETRON 16 MG in SODIUM CHLORIDE 0.9% 50 ML IVPB SCH (23:24)
[2018-01-19] MEDS: FAMOTIDINE 20 MG/2 ML VIAL IV SCH (23:25)
[2018-01-19] MEDS: ZOLPIDEM 10 MG TAB PO SCH (23:58)
[2018-01-20] MEDS: SODIUM CHLORIDE 0.9% 1,000 ML IV SCH ×3 (04:13→17:44)
[2018-01-20] MEDS: LEVOTHYROXINE 125 MCG TAB PO SCH (06:08)
[2018-01-20] MEDS: SYMBICORT 160-4.5 MCG INHALER INHALATION SCH ×2 (07:02→20:04)
[2018-01-20] MEDS: IPRATROPIUM-ALBUTEROL 3 ML NEB INHALATION PRN (07:02)
[2018-01-20 07:09] LABS: Glucose,Whole Blood 89 mg/dL (75-99)
[2018-01-20] MEDS: busPIRone HCl 5 MG TAB PO SCH ×2 (07:56→21:25)
[2018-01-20] MEDS: GABAPENTIN 300 MG CAP PO SCH ×3 (07:56→21:25)
[2018-01-20] MEDS: NYSTATIN 100,000 UNIT/ML SUSP 500,000 UNIT/5 ML CUP PO SCH ×3 (08:01→17:43)
[2018-01-20] MEDS: METOPROLOL TARTRATE 50 MG TAB PO SCH ×2 (08:01→21:26)
[2018-01-20] MEDS: predniSONE 10 MG TAB PO SCH (08:01)
[2018-01-20] MEDS: FERROUS SULFATE 325 MG TAB PO SCH (08:02)
[2018-01-20] MEDS: ASPIRIN 81 MG PO SCH (08:02)
[2018-01-20] MEDS: ALLOPURINOL 300 MG TAB PO SCH ×2 (08:02→21:27)
[2018-01-20] MEDS: LORATADINE 10 MG TAB PO SCH (08:02)
[2018-01-20] MEDS: FLUTICASONE 50MCG/SPRAY NASAL 16GM EA NOSTRIL SCH (08:02)
[2018-01-20] MEDS: FUROSEMIDE 10 MG/ML 2 ML VIAL IV SCH ×2 (08:02→21:31)
[2018-01-20] MEDS: ESCITALOPRAM 10 MG TAB PO SCH (08:02)
[2018-01-20] MEDS: CALCIUM CARB-VIT D 500MG-200UN 1 EACH TAB PO SCH (08:02)
[2018-01-20] MEDS: ATORVASTATIN 20 MG TAB PO SCH (08:02)
[2018-01-20] MEDS: PANTOPRAZOLE 40 MG/10 ML VIAL IV SCH (08:03)
[2018-01-20] MEDS: POTASSIUM CHLORIDE ER 20 MEQ TAB.ER PO SCH ×2 (08:03→21:26)
[2018-01-20] MEDS: SALT AND SODA MOUTHWASH 1,000 ML PO SCH ×4 (08:04→21:32)
[2018-01-20] MEDS: MEROPENEM 2 GM in SODIUM CHLORIDE 0.9% 100 ML IVPB SCH ×2 (08:10→17:42)
[2018-01-20 08:11] LABS: HCT 27.3 % (34.0-46.0); HGB 9.1 gm/dL (11.4-16.0); MCH 31.7 pg (25.0-35.0); MCHC 33.5 g/dL (31.0-37.0); MCV 94.7 fL (80.0-100.0); Mean Platelet Volume 7.8; RBC 2.88 m/uL (3.80-5.40); RDW 14.8 % (11.5-15.5)
[2018-01-20] MEDS: INSULIN ASPART 100 UNIT/ML 1 ML 10 ML VIAL SQ SCH ×7 (08:11→21:31)
[2018-01-20 08:16] LABS: WBC 0.8 k/uL (3.8-10.6)
[2018-01-20] MEDS: AMMONIUM LACTATE 12% LOTION 225 GM BTL TOPICAL SCH ×2 (08:20→21:27)
[2018-01-20] MEDS: HEPARIN SODIUM,PORCINE 5,000 UNIT/ML 1 ML VIAL SQ SCH ×3 (08:20→17:45)
[2018-01-20 08:33] LABS: Platelet Count 58 k/uL (150-450)
[2018-01-20 09:22] LABS: ALT 30 U/L (9-52); AST 20 U/L (14-36); Albumin 3.4 g/dL (3.5-5.0); Alkaline Phosphatase 60 U/L (38-126); Anion Gap 6 mmol/L; Blood Urea Nitrogen 21 mg/dL (7-17); Calcium 8.6 mg/dL (8.4-10.2); Carbon Dioxide 26 mmol/L (22-30); Chloride 108 mmol/L (98-107); Glucose 83 mg/dL (74-99); Phosphorus 3.2 mg/dL (2.5-4.5); Potassium 4.3 mmol/L (3.5-5.1); Sodium 140 mmol/L (137-145); Total Bilirubin 1.2 mg/dL (0.2-1.3); Total Protein 6.3 g/dL (6.3-8.2); Uric Acid 2.9 mg/dL (3.7-7.4)
[2018-01-20 11:55] LABS: Glucose,Whole Blood 188 mg/dL (75-99)
[2018-01-20] MEDS: CYANOCOBALAMIN 500 MCG TAB PO SCH (13:07)
--- NOTE | 2018-01-20 15:49 | PN ---
PROGRESS NOTE DATE OF SERVICE: 01/20/2018 This 53-year-old woman was admitted with acute hypoxic respiratory failure also had bilateral infiltrates. The patient is on chemotherapy for AML also. No chest pain. No palpitations. No fever. PHYSICAL EXAM: Alert and oriented x3. Pulse is 65, blood pressure 116/69, respirations 16, temperature 98 degrees, pulse ox 98% room air. HEENT: Conjunctivae normal. Oral mucosa moist. NECK: No jugular venous distention. No carotid bruit. No lymph node enlargement. CARDIOVASCULAR: S1, S2. RESPIRATORY: Breath sounds diminished in the bases. A few scattered rhonchi and crackles. ABDOMEN: Soft, obese, nontender. LEGS: No edema, no swelling. NERVOUS SYSTEM: No focal deficits. LABS: WBC 6.8, hemoglobin 9.1, platelets 58. Uric acid 2.9. ASSESSMENT: 1. Acute hypoxic respiratory failure with bilateral infiltrates with possible acute pneumonia gram-negative with broad-spectrum IV antibiotics. 2. Acute AML on chemotherapy initiated. 3. Sepsis with increased lactic acid, present on admission. 4. Chronic bronchial asthma. 5. Hypertension. 6. Hyperlipidemia. 7. History of diabetes type 2. 8. Neutropenia, leukopenia and anemia possibly secondary to chemotherapy. 9. Morbid obesity. 10.Gastroesophageal reflux disease. 11.Chronic low back pain. 12.Hypothyroidism. 13.Anxiety, depression. RECOMMENDATIONS AND DISCUSSION: I recommend to continue current management and symptomatic treatment. Repeat labs otherwise at this time closely follow with Hematology/Oncology. Continue the rest of the medications including bronchodilators. Guarded prognosis because of multiple complex medical issues. Further recommendations to follow. MMODL / IJN: [id number] /
[2018-01-20 17:11] LABS: Glucose,Whole Blood 143 mg/dL (75-99)
--- NOTE | 2018-01-20 17:46 | P.PN ---
Subjective Progress Note Date: 01/20/18 The patient denies any new complaints. Her breathing is actually improved and she is more comfortable, at least at rest, in without oxygen. No obvious bleeding noted. No history of fevers/chills/nausea/ vomiting/mouth sores. Objective - Vital Signs Vital signs: Vital Signs Temp 98.1 F 01/20/18 15:56 Pulse 65 01/20/18 16:05 Resp 16 01/20/18 16:05 BP 123/77 01/20/18 15:56 Pulse Ox 94 L 01/20/18 15:56 Intake & Output 01/19/18 01/20/18 01/20/18 18:59 06:59 18:59 Intake Total 1070.363 590 240 Output Total 800 Balance 1070.363 590 -560 Weight 136.7 kg Intake: Intake, IV Titration 1070.363 Amount Cytarabine/Pf 220 mg In 170.363 Sodium Chloride 0.9% 500 ml @ 21.292 mls/hr IV Q24H [facility] Rx#:[id number] Meropenem 2 gm In Sodium 100 Chloride 0.9% 100 ml @ 200 mls/hr IVPB Q8HR [facility] Rx#:[id number] Sodium Chloride 0.9% 1, 800 000 ml @ 100 mls/hr IV . Q10H [facility] Rx#:[id number] Oral 590 240 Output: Urine 800 Other: Voiding Method Toilet Toilet Toilet Bedside Commode Bedside Commode Bedside Commode # Voids 3 2 2 # Bowel Movements 2 ABP, PAP, CO, CI - Last Documented Arterial Blood Pressure 133/61 - Constitutional General appearance: Present: no acute distress - EENT Eyes: Present: EOMI ENT: Present: hearing grossly normal, normal oropharynx - Respiratory Respiratory: left: diminished - Cardiovascular Rhythm: regular Heart sounds: normal: S1, S2 - Gastrointestinal General gastrointestinal: Present: normal bowel sounds, soft - Neurologic Neurologic: Present: CNII-XII intact - Musculoskeletal Musculoskeletal: Present: generalized weakness, strength equal bilaterally - Psychiatric Psychiatric: Present: A&O x's 3, appropriate affect - Labs CBC & Chem 7: 01/20/18 07:40 01/20/18 07:40 Labs: Abnormal Lab Results - Last 24 Hours (Table) 01/19/18 01/20/18 01/20/18 Range/Units 20:12 07:40 07:40 WBC 0.8 L* (3.8-10.6) k/uL RBC 2.88 L (3.80-5.40) m/uL Hgb 9.1 L (11.4-16.0) gm/dL Hct 27.3 L (34.0-46.0) % Plt Count 58 L (150-450) k/uL Chloride 108 H (98-107) mmol/L BUN 21 H (7-17) mg/dL POC Glucose (mg/dL) 155 H (75-99) mg/dL Uric Acid 2.9 L (3.7-7.4) mg/dL Albumin 3.4 L (3.5-5.0) g/dL 01/20/18 01/20/18 Range/Units 11:54 17:10 WBC (3.8-10.6) k/uL RBC (3.80-5.40) m/uL Hgb (11.4-16.0) gm/dL Hct (34.0-46.0) % Plt Count (150-450) k/uL Chloride (98-107) mmol/L BUN (7-17) mg/dL POC Glucose (mg/dL) 188 H 143 H (75-99) mg/dL Uric Acid (3.7-7.4) mg/dL Albumin (3.5-5.0) g/dL Assessment and Plan (1) Acute myeloid leukemia Narrative/Plan: The patient is on day #5 of induction chemotherapy with the 7+3 regimen. She continues to tolerate treatment well subjectively. There is no evidence of tumor lysis. Continue to monitor with clinical exams and labs. Current Visit: Yes Status: Acute Code(s): C92.00 - ACUTE MYELOBLASTIC LEUKEMIA, NOT HAVING ACHIEVED REMISSION SNOMED Code(s): 26110508 (2) Pancytopenia Narrative/Plan: W BC count continues to drop, as expected with the chemotherapy. Hemoglobin and platelets remain in a safe range with no transfusion support required today. Current Visit: Yes Status: Acute Priority: High Code(s): D61.818 - OTHER PANCYTOPENIA SNOMED Code(s): 988333910 (3) Pneumonia Narrative/Plan: Respiratory status continues to improve. Antibiotics per ID Current Visit: Yes Status: Acute Code(s): J18.9 - PNEUMONIA, UNSPECIFIED ORGANISM SNOMED Code(s): 021471961
[2018-01-20 20:16] LABS: Glucose,Whole Blood 161 mg/dL (75-99)
[2018-01-20] MEDS: FAMOTIDINE 20 MG/2 ML VIAL IV SCH (21:25)
[2018-01-20] MEDS: MONTELUKAST 10 MG TAB PO SCH (21:27)
[2018-01-20] MEDS: ONDANSETRON 16 MG in SODIUM CHLORIDE 0.9% 50 ML IVPB SCH (21:27)
[2018-01-20] MEDS: INSULIN DETEMIR 100 UNIT/ML 10 ML VIAL SQ SCH (21:31)
--- NOTE | 2018-01-20 23:12 | P.PN ---
Subjective Progress Note Date: 01/20/18 This is a 53-year-old female patient known to ID service as she was seen during her hospitalization in July of this year. At that time she was treated for acute asthma exacerbation complicated by influenza B tracheobronchitis. ID was consulted regarding a cellulitis of the lower extremities. Patient was discharged home on Keflex. Regarding her legs, patient states that they occasionally get red but not a significant problem at this time. Patient states that she has had for about the last month difficulty with ambulating very far and early fatigue and shortness of breath. She states she has been sick for about one week or more with fever and worsening shortness of breath along with cough. She came into [facility] emergency center and on CAT scan of the chest done on 01/06 showed new extensive bilateral pulmonary airspace infiltrate consistent with acute asthma. Increased hair a tracheal adenopathy. She was originally treated with Levaquin and has been switched over to meropenem by Dr. Rubalcava. Patient is also been febrile with pancytopenia. Mycoplasma pneumoniae IgM was normal and Legionella antigen was not detected. Flow cytology recommends consideration of a marrow examination. Consult has been added for oncology. Patient has had ongoing difficulty with hypoxia and remains on high flow nasal cannula at 10 L pulse oxing 86%. She states she becomes extremely winded is getting to the commode chair. Her course has been complicated by episode of epistaxis which is now controlled and also initially vomiting which is also been resolved. She does state that she has 4 episodes of diarrhea today. 01/10/2018 patient has had some progression of her status in that her pulmonary status has not improved and her leukopenia and anemia have worsened. She has been seen by both pulmonary critical care and oncology and constantly has now undergone a bronchoscopy and a bone marrow aspiration. She has respiratory failure and required ongoing mechanical ventilation after her bronchoscopy,is in the intensive care unit. She is sedated but not requiring vasopressor therapy. January 13 the patient has had significant improvement of her status. The patient has tolerated extubation and is now down to 2 L nasal cannula with adequate oxygenation. The levels improved. She is eating without great difficulties. Shortness of breath at rest is improved. Denies discomforts. She did have a bit of a nosebleed earlier that has resolved. Potentially also had some vaginal bleeding that is also improved. 01/14/2018 patient is feeling somewhat better but remains on supplemental oxygen because of her shortness of breath. Pneumonia seems to be improving with current therapy. She relates that diarrhea has improved other than her profound fatigue she is not having new acute symptoms. Appetite is adequate without nausea or emesis. 01/17/2018 there is no been confirmation for acute myelogenous leukemia and she has been started on the 7+3 regimen. She's having no acute difficulties yet at this point in time. Her shortness of breath is markedly improved. She's having no fevers or chills. No acute bleeding at this time. Vaginal bleeding is improved. January 18 2018 patient is feeling relatively well this time. She is less short of breath. Tolerating chemotherapy without nausea or emesis. No fevers or chills. 01/20/2018 the patient is tolerating her chemotherapy well. She is not becoming neutropenic. She however is denying fevers or chills. She's having no nausea or emesis and denies any new acute difficulties. Appetite is adequate and she has no mucositis. Objective - Vital Signs Vital signs: Vital Signs Temp 98 F 01/20/18 20:00 Pulse 66 01/20/18 20:00 Resp 17 01/20/18 20:00 BP 137/73 01/20/18 20:00 Pulse Ox 94 L 01/20/18 20:00 Intake & Output 01/20/18 01/20/18 01/21/18 06:59 18:59 06:59 Intake Total 590 240 590 Output Total 800 Balance 590 -560 590 Weight 136.7 kg Intake: Oral 590 240 590 Output: Urine 800 Other: Voiding Method Toilet Toilet Bedside Commode Bedside Commode # Voids 2 2 3 ABP, PAP, CO, CI - Last Documented Arterial Blood Pressure 133/61 - Exam Gen: This is a morbidly obese 53-year-old female. She is status post bronchoscopy as well as bone marrow aspiration. She required intubation for the bronchoscopy and she is now extubated and doing well. His transfer to oncology and started chemotherapy and has a good attitude. HEENT: Head is atraumatic, normocephalic. Pupils equal, round. Sclerae is anicteric. Conjunctiva pink. Mucous members of the mouth are moist. No thrush noted. NECK: Supple. No JVD. No lymphadenopathy. No thyromegaly. LUNGS: Diminished bilaterally. No wheezes. Mild intercostal retractions. HEART: Regular rate and rhythm. No murmur. ABDOMEN: Soft. Bowel sounds are present. No masses. No tenderness. EXTREMITIES: Trace bilateral pedal edema. No calf tenderness. Dorsalis pedis + 2 bilaterally. NEUROLOGICAL: Awake alert oriented person place and time with no acute gross focal sensory motor deficits - Labs CBC & Chem 7: 01/20/18 07:40 01/20/18 07:40 Labs: Abnormal Lab Results - Last 24 Hours (Table) 01/20/18 01/20/18 01/20/18 Range/Units 07:40 07:40 11:54 WBC 0.8 L* (3.8-10.6) k/uL RBC 2.88 L (3.80-5.40) m/uL Hgb 9.1 L (11.4-16.0) gm/dL Hct 27.3 L (34.0-46.0) % Plt Count 58 L (150-450) k/uL Chloride 108 H (98-107) mmol/L BUN 21 H (7-17) mg/dL POC Glucose (mg/dL) 188 H (75-99) mg/dL Uric Acid 2.9 L (3.7-7.4) mg/dL Albumin 3.4 L (3.5-5.0) g/dL 01/20/18 01/20/18 Range/Units 17:10 20:15 WBC (3.8-10.6) k/uL RBC (3.80-5.40) m/uL Hgb (11.4-16.0) gm/dL Hct (34.0-46.0) % Plt Count (150-450) k/uL Chloride (98-107) mmol/L BUN (7-17) mg/dL POC Glucose (mg/dL) 143 H 161 H (75-99) mg/dL Uric Acid (3.7-7.4) mg/dL Albumin (3.5-5.0) g/dL Laboratory Results WBC 0.8 k/uL (3.8-10.6) L* 01/20/18 07:40 RBC 2.88 m/uL (3.80-5.40) L 01/20/18 07:40 Hgb 9.1 gm/dL (11.4-16.0) L 01/20/18 07:40 Hct 27.3 % (34.0-46.0) L 01/20/18 07:40 MCV 94.7 fL (80.0-100.0) 01/20/18 07:40 MCH 31.7 pg (25.0-35.0) 01/20/18 07:40 MCHC 33.5 g/dL (31.0-37.0) 01/20/18 07:40 RDW 14.8 % (11.5-15.5) 01/20/18 07:40 Plt Count 58 k/uL (150-450) L 01/20/18 07:40 Basophils % (Manual) 1 % 01/05/18 08:50 Neutrophils % (Manual) 16 % 01/19/18 08:15 Metamyelocytes % 2 % 01/13/18 04:00 Band Neutrophils % 1 % 01/17/18 07:08 Lymphocytes % (Manual) 56 % 01/19/18 08:15 Monocytes % (Manual) 28 % 01/19/18 08:15 Eosinophils % (Manual) 1 % 01/18/18 06:07 Myelocytes % 1 % 01/17/18 07:08 Promyelocytes % 1 % 01/15/18 08:45 Blast Cells % 1 % 01/18/18 06:07 Other Cells % % 01/18/18 06:07 Neutrophils # (Manual) 0.18 k/uL (1.3-7.7) L 01/19/18 08:15 Lymphocytes # (Manual) 0.62 k/uL (1.0-4.8) L 01/19/18 08:15 Basophils # (Manual) 0.03 k/uL (0-0.2) 01/05/18 08:50 Metamyelocytes # (Man) 0.22 k/uL (0) H 01/13/18 04:00 Monocytes # (Manual) 0.31 k/uL (0-1.0) 01/19/18 08:15 Eosinophils # (Manual) 0.03 k/uL (0-0.7) 01/18/18 06:07 Myelocytes # (Manual) 0.14 k/uL (0) H 01/17/18 07:08 Promyelocytes # (Man) 0.28 k/uL (0) H 01/15/18 08:45 Pathologist Review See comment A 01/05/18 08:50 Blast Cells # (Man) 0.03 k/uL (0) H 01/18/18 06:07 Nucleated RBCs 0 /100 WBC (0-0) 01/19/18 08:15 Differential Comment 01/20/18 07:40 Manual Slide Review Performed 01/20/18 07:40 RBC Morphology Normal 01/13/18 04:00 Hypochromasia (manual) Present 01/11/18 04:15 Macrocytosis Slight 01/10/18 08:08 Poikilocytosis (manual Present 01/17/18 07:08 Anisocytosis (manual) Present 01/15/18 08:45 PT 10.6 sec (9.0-12.0) 01/16/18 07:23 INR 1.1 (<1.2) 01/16/18 07:23 APTT 22.6 sec (22.0-30.0) 01/16/18 07:23 Sample Site brusett 01/10/18 14:10 ABG pH 7.32 (7.35-7.45) L 01/10/18 14:10 ABG pCO2 55 mmHg (35-45) H 01/10/18 14:10 ABG pO2 106 mmHg (83-108) 01/10/18 14:10 ABG HCO3 28 mmol/L (21-25) H 01/10/18 14:10 ABG Total CO2 30 mmol/L (19-24) H 01/10/18 14:10 ABG O2 Saturation 97.9 % (94-97) H 01/10/18 14:10 ABG Base Excess 2.3 mmol/L 01/10/18 14:10 Bk Test no 01/10/18 14:10 FiO2 100 % 01/10/18 14:10 Sodium 140 mmol/L (137-145) 01/20/18 07:40 Potassium 4.3 mmol/L (3.5-5.1) 01/20/18 07:40 Chloride 108 mmol/L (98-107) H 01/20/18 07:40 Carbon Dioxide 26 mmol/L (22-30) 01/20/18 07:40 Anion Gap 6 mmol/L 01/20/18 07:40 BUN 21 mg/dL (7-17) H 01/20/18 07:40 Creatinine 0.71 mg/dL (0.52-1.04) 01/20/18 07:40 Est GFR (CKD-EPI)AfAm >90 (>60 ml/min/1.73 sqM) 01/20/18 07:40 Est GFR (CKD-EPI)NonAf >90 (>60 ml/min/1.73 sqM) 01/20/18 07:40 Glucose 83 mg/dL (74-99) 01/20/18 07:40 POC Glucose (mg/dL) 161 mg/dL (75-99) H 01/20/18 20:15 POC Glu Services Program Manager ID Dana Polanco 01/20/18 20:[address] Glu mg/dL 177 01/05/18 08:50 Hemoglobin A1c 7.8 % (4.0-6.0) H 01/05/18 08:50 Lactic Ac Sepsis Rflx Y 01/04/18 20:51 Plasma Lactic Acid Bereket 0.8 mmol/L (0.7-2.0) 01/04/18 23:55 Uric Acid 2.9 mg/dL (3.7-7.4) L 01/20/18 07:40 Calcium 8.6 mg/dL (8.4-10.2) 01/20/18 07:40 Phosphorus 3.2 mg/dL (2.5-4.5) 01/20/18 07:40 Magnesium 2.2 mg/dL (1.6-2.3) 01/15/18 08:45 Total Bilirubin 1.2 mg/dL (0.2-1.3) 01/20/18 07:40 AST 20 U/L (14-36) 01/20/18 07:40 ALT 30 U/L (9-52) 01/20/18 07:40 Alkaline Phosphatase 60 U/L (38-126) 01/20/18 07:40 Total Creatine Kinase 49 U/L (30-135) 01/04/18 20:00 CK-MB (CK-2) <0.2 ng/mL (0.0-2.4) 01/04/18 20:00 CK-MB (CK-2) Rel Index 01/04/18 20:00 Troponin I <0.012 ng/mL (0.000-0.034) 01/04/18 20:00 NT-Pro-B Natriuret Pep 576 pg/mL 01/06/18 08:35 Total Protein 6.3 g/dL (6.3-8.2) 01/20/18 07:40 Albumin 3.4 g/dL (3.5-5.0) L 01/20/18 07:40 Angiotensin Convert Enz 29 U/L (8-52) 01/12/18 04:39 Urine Color Yellow 01/04/18 20:00 Urine Appearance Clear (Clear) 01/04/18 20:00 Urine pH 7.0 (5.0-8.0) 01/04/18 20:00 Ur Specific [place] 1.010 (1.001-1.035) 01/04/18 20:00 Urine Protein Negative (Negative) 01/04/18 20:00 Urine Glucose (UA) Negative (Negative) 01/04/18 20:00 Urine Ketones Negative (Negative) 01/04/18 20:00 Urine Blood Negative (Negative) 01/04/18 20:00 Urine Nitrite Negative (Negative) 01/04/18 20:00 Urine Bilirubin Negative (Negative) 01/04/18 20:00 Urine Urobilinogen <2.0 mg/dL (<2.0) 01/04/18 20:00 Ur Leukocyte Esterase Negative (Negative) 01/04/18 20:00 Fluid Source Bronchial Wash 01/10/18 11:38 Fluid Color Colorless 01/10/18 11:38 Fluid Appearance Blood Tinged 01/10/18 11:38 Fluid RBC 680 /uL 01/10/18 11:38 Fluid Nucleated Cells 20 /uL 01/10/18 11:38 Fluid Polynuclear WBCs 64 % 01/10/18 11:38 Fluid Mononuclear WBCs 35 % 01/10/18 11:38 Fluid Eosinophils 1 % 01/10/18 11:38 c-ANCA <1:20 Titer (<1:20) 01/12/18 04:39 p-ANCA <1:20 Titer (<1:20) 01/12/18 04:39 Urine Legionella Ag Not detected (Not detected) 01/06/18 16:51 Mycoplasma pneumon IgM 0.22 INDEX (<=0.90) 01/06/18 08:35 Virus Source See Below 01/10/18 11:38 Viral Test See Below 01/10/18 11:38 Virus Analysis Interp See Below 01/10/18 11:38 Flow Results See Path Report 01/10/18 12:00 Miscellaneous Test Pneumocystis PCR 01/10/18 11:38 Misc Test Result See comment 01/10/18 11:38 Microbiology 01/10/18 11:38 Lung - Left Upper Lobe Fungal Culture - Preliminary Shae albicans 01/06/18 18:42 Blood Blood Culture - Final No Growth after 144 hours 01/06/18 18:20 Blood Blood Culture - Final No Growth after 144 hours 01/10/18 11:38 Bronchial Washings - Left Gram Stain - Final 01/10/18 11:38 Bronchial Washings - Left Bronchial Washings Culture - Final Shae albicans 01/10/18 08:00 Sputum Gram Stain - Final 01/10/18 08:00 Sputum Sputum Culture - Final Shae albicans 01/10/18 11:38 Lung - Left Upper Lobe Acid Fast Bacilli Smear - Final 01/10/18 11:38 Lung - Left Upper Lobe Acid Fast Bacilli Culture - Preliminary 01/04/18 20:00 Blood Blood Culture - Final No Growth after 144 hours 01/04/18 20:00 Urine,Voided Urine Culture - Final Assessment and Plan (1) Pneumonia Narrative/Plan: This pleasant 53-year-old woman is have underlying asthma and last time she was ill she had cellulitis prior to that she had influenza B and exacerbation of her asthma. Now presents with progressive acute illness. Has been seen in the outpatient setting by oncology because of leukopenia. Workup had been started. Patient is not having difficulties with worsening leukopenia anemia and bleeding. She remains acutely ill with pneumonia and is also having difficulties with diarrhea. The patient has now been seen again by oncology and the peripheral smear is markedly abnormal with blasts that are evident and consequently they are planning for the bone marrow biopsy and aspirate as soon as they possibly can. At this time she is on broad-spectrum antibiotic therapy. Her fevers are controlled and she is stable. Certainly if she has acute leukemia will be worried about an Aspergillus infection. Galactomannan antigen testing is requested at this time to guide treatment. 01/10/2018 the patient is now status post bronchoscopy and has remained intubated sedated and mechanically ventilated, bone marrow aspiration also performed. Findings the bronchoscopy to further help direct antimicrobial therapy including the potential addition of antifungal therapy for Aspergillus. She fortunately is quite comfortable at this point in time. She is profoundly ill and await the bone marrow results determine if there is a significant derangement of the bone marrow. Is on Merrem and is not febrile but has progressive leukopenia. 01/13/2018 the patient is now markedly improved such that she is extubated sitting upright in a chair and has had her meal without difficulties. Bronchoscopy was performed and she did require transient intubation, since extubation she is feeling better. Respiratory status improved. She is titrated to 2 liters nasal cannula and does not feel short of breath at rest. Does not have any significant new discomforts. The bone marrow aspiration results remain pending, peripheral blood showed about 10% blast, and now 55% monocytes. The oncology input is also pending at this time. We'll complete 7 days of meropenem. A fungal evaluation does not reveal evidence of aspergillosis, she is also negative for Legionella and Mycoplasma. 01/14/2018 patient remains improved but is still quite short of breath with activity requiring O2 to ambulate. However she certainly has had improvement of her respiratory status. Cultures are negative so far. The case is discussed with the oncologist, the bone marrow aspiration is still pending at this point in time but they agree that there is evidence of blasts in many monocytes that are atypical and concerns for underlying myelomonocytic disease. Hopefully this will be back in the morning and they can discuss with her the plan for treatment. As noted 7 days of meropenem are being requested to complete the treatment of her pneumonia is allowed a marked improvement. Aspergillus testing is negative by BAL, Aspergillus antigen and galactomannan testing. 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 The BAL testing hasl now been completed and is negative for Aspergillus, bacterial pathogens, pneumocystis, and virus. Is completing her course of meropenem for her recent pneumonia. Receiving salt and soda for mouth hygiene and will be monitored for other infections. She has now on chemotherapy for her AML. 01/18/2018 patient has begun chemotherapy and is on the 3 of the 7+3 protocol. Seems to tolerating it well. Not having fevers. His other couple days of antibiotic therapy with meropenem for her pneumonia. Overall is stable at this time. Leukocytosis is responding to the chemotherapy no blasts are noted in the most recent smear. December patient is beginning day 5 for 7+3 protocol and has been tolerating quite well. She's having no stomach and nausea or emesis and no other new acute changes. She's becoming neutropenic but is not having any new symptoms. We'll complete 2 further days of meropenem for the pneumonia admission that likely is multifactorial, but is having marked improvement of her status. We'll likely transition to oral antibiotic therapy for home. Current Visit: Yes Status: Acute Code(s): J18.9 - PNEUMONIA, UNSPECIFIED ORGANISM SNOMED Code(s): 856037315 (2) Pancytopenia Current Visit: Yes Status: Acute Priority: High Code(s): D61.818 - OTHER PANCYTOPENIA SNOMED Code(s): 873058545 (3) Obesity, Class III, BMI 40-49.9 (morbid obesity) Current Visit: No Status: Acute Code(s): E66.01 - MORBID (SEVERE) OBESITY DUE TO EXCESS CALORIES SNOMED Code(s): 314450937
[2018-01-21] MEDS: SODIUM CHLORIDE 0.9% IV SCH (00:21)
[2018-01-21] MEDS: SODIUM CHLORIDE 0.9% 1,000 ML IV SCH ×3 (00:21→21:38)
[2018-01-21] MEDS: MEROPENEM 2 GM in SODIUM CHLORIDE 0.9% 100 ML IVPB SCH ×3 (00:21→16:56)
[2018-01-21] MEDS: NYSTATIN 100,000 UNIT/ML SUSP 500,000 UNIT/5 ML CUP PO SCH ×5 (00:21→21:38)
[2018-01-21] MEDS: CYTARABINE IV SCH (00:21)
[2018-01-21] MEDS: ZOLPIDEM 10 MG TAB PO SCH ×2 (00:22→23:57)
[2018-01-21] MEDS: HEPARIN SODIUM,PORCINE 5,000 UNIT/ML 1 ML VIAL SQ SCH ×4 (00:22→23:59)
[2018-01-21 00:54] LABS: Alternaria Alternata IgG 27.9 mcg/mL (< 13.6); Aspergillus fumigatus IgG Not detected (Not detected); Aureobasidium pullulans IgG 9.5 mcg/mL (< 13.6); Cladosporium herbarium IgG 23.9 mcg/mL (< 14.7); Phoma ssp. IgG 27.2 mcg/mL (< 6.6); Saccaharomospora viridis Not detected (Not detected); Saccaharopoly. rectivirgula Not detected (Not detected)
[2018-01-21] MEDS: LEVOTHYROXINE 125 MCG TAB PO SCH (06:20)
[2018-01-21 07:12] LABS: Glucose,Whole Blood 71 mg/dL (75-99)
[2018-01-21 07:45] LABS: HCT 23.6 % (34.0-46.0); HGB 7.9 gm/dL (11.4-16.0); MCH 31.5 pg (25.0-35.0); MCHC 33.4 g/dL (31.0-37.0); MCV 94.5 fL (80.0-100.0); Mean Platelet Volume 8.2; RDW 14.8 % (11.5-15.5)
[2018-01-21 08:01] LABS: WBC 0.9 k/uL (3.8-10.6)
[2018-01-21 08:02] LABS: Platelet Count 44 k/uL (150-450)
[2018-01-21 08:14] LABS: ALT 26 U/L (9-52); AST 20 U/L (14-36); Albumin 3.2 g/dL (3.5-5.0); Alkaline Phosphatase 55 U/L (38-126); Anion Gap 7 mmol/L; Calcium 8.6 mg/dL (8.4-10.2); Carbon Dioxide 24 mmol/L (22-30); Chloride 109 mmol/L (98-107); Glucose 78 mg/dL (74-99); Phosphorus 3.4 mg/dL (2.5-4.5); Sodium 140 mmol/L (137-145); Total Bilirubin 1.2 mg/dL (0.2-1.3); Total Protein 6.1 g/dL (6.3-8.2)
[2018-01-21] MEDS: SYMBICORT 160-4.5 MCG INHALER INHALATION SCH ×2 (08:14→20:25)
[2018-01-21 08:16] LABS: Blood Urea Nitrogen 19 mg/dL (7-17)
[2018-01-21] MEDS: INSULIN ASPART 100 UNIT/ML 1 ML 10 ML VIAL SQ SCH ×7 (08:17→20:40)
[2018-01-21] MEDS: FLUTICASONE 50MCG/SPRAY NASAL 16GM EA NOSTRIL SCH (08:26)
[2018-01-21] MEDS: AMMONIUM LACTATE 12% LOTION 225 GM BTL TOPICAL SCH ×2 (08:28→20:38)
[2018-01-21] MEDS: ASPIRIN 81 MG PO SCH (08:28)
[2018-01-21] MEDS: ALLOPURINOL 300 MG TAB PO SCH ×2 (08:28→20:38)
[2018-01-21] MEDS: LORATADINE 10 MG TAB PO SCH (08:28)
[2018-01-21] MEDS: ATORVASTATIN 20 MG TAB PO SCH (08:28)
[2018-01-21] MEDS: FERROUS SULFATE 325 MG TAB PO SCH (08:28)
[2018-01-21] MEDS: CALCIUM CARB-VIT D 500MG-200UN 1 EACH TAB PO SCH (08:29)
[2018-01-21] MEDS: predniSONE 10 MG TAB PO SCH (08:29)
[2018-01-21] MEDS: ESCITALOPRAM 10 MG TAB PO SCH (08:29)
[2018-01-21] MEDS: METOPROLOL TARTRATE 50 MG TAB PO SCH ×2 (08:29→20:41)
[2018-01-21] MEDS: POTASSIUM CHLORIDE ER 20 MEQ TAB.ER PO SCH ×2 (08:30→20:41)
[2018-01-21] MEDS: SALT AND SODA MOUTHWASH 1,000 ML PO SCH ×4 (08:30→21:38)
[2018-01-21] MEDS: PANTOPRAZOLE 40 MG/10 ML VIAL IV SCH (08:30)
[2018-01-21] MEDS: FUROSEMIDE 10 MG/ML 2 ML VIAL IV SCH ×2 (08:46→20:40)
[2018-01-21 11:15] LABS: Glucose,Whole Blood 97 mg/dL (75-99)
[2018-01-21] MEDS: CYANOCOBALAMIN 500 MCG TAB PO SCH (12:12)
--- NOTE | 2018-01-21 14:05 | PN ---
PROGRESS NOTE DATE OF SERVICE: 01/21/2018 This is a 53-year-old woman who was admitted with acute hypoxic respiratory failure and bilateral infiltrate with possible acute pneumonia. The patient also receiving chemotherapy for AML of patient is on 5/7 days. Today no chest pain or palpitation. No fever. PHYSICAL EXAM: Alert and oriented x3. Pulse 64, blood pressure 116/60, respirations 16, temperature 97.9, pulse ox 91% on room air. HEENT: Conjunctivae normal. NECK: No jugular venous congestion. CARDIOVASCULAR SYSTEM: S1, S2, muffled. RESPIRATORY: Breath sounds diminished at the bases, a few scattered rhonchi. No crackles. ABDOMEN: Soft, nontender. LEGS: No edema. No swelling. NERVOUS SYSTEM: No focal deficits. LABS: WBC 0.9, hemoglobin 7.2, platelets of 44. ASSESSMENT: 1. Acute hypoxic respiratory failure with bilateral infiltrates with possible acute pneumonia, gram-negative with broad-spectrum IV antibiotics, present on admission. 2. Acute AML on chemotherapy, currently 5/7 days. 3. Sepsis, increased lactic acid, present on admission. 4. Severe neutropenia, secondary to chemotherapy. 5. Chronic bronchial asthma. 6. Hypertension. 7. Hypoxemia with possible chronic hypoxic respiratory failure. 8. Hyperlipidemia. 9. Diabetes mellitus type 2. 10.Morbid obesity. 11.Gastroesophageal reflux disease. 12.Chronic low back pain. 13.Hypothyroidism. 14.Anxiety, depression. RECOMMENDATIONS AND DISCUSSION: Continue with the current management and symptomatic treatment. Continue the chemotherapy and monitor counts closely. Continue the antibiotics. Continue the rest of the medications. The patient might require home O2 at the time of discharge with saturations less than 88. Further recommendations to follow. MMODL / IJN: [id number] /
--- NOTE | 2018-01-21 15:52 | P.PN ---
Subjective Progress Note Date: 01/21/18 Principal diagnosis: Leukemia She tolerated day one of 7 plus 3 chemotherapy induction well. Sitting up in chair, no nausea, vomiting, diarrhea. No acute complaints. Objective - Vital Signs Vital signs: Vital Signs Temp 97.9 F 01/21/18 11:40 Pulse 64 01/21/18 11:40 Resp 16 01/21/18 11:40 BP 116/66 01/21/18 11:40 Pulse Ox 91 L 01/21/18 11:40 Intake & Output 01/20/18 01/21/18 01/21/18 18:59 06:59 18:59 Intake Total 240 1530 Output Total 800 Balance -560 1530 Weight 136.7 kg 135.5 kg Intake: IV 700 Sodium Chloride 0.9% 1, 700 000 ml @ 100 mls/hr IV . Q10H STEPHEN Rx#:[id number] Oral 240 830 Output: Urine 800 Other: Voiding Method Toilet Toilet Toilet Bedside Commode # Voids 2 8 ABP, PAP, CO, CI - Last Documented Arterial Blood Pressure 133/61 - Constitutional General appearance: Present: cooperative, morbidly obese, no acute distress - EENT Eyes: Present: EOMI, PERRLA ENT: Present: NA/AT, normal oropharynx - Neck Details: supple, trachea midline Neck: Present: normal ROM - Respiratory Respiratory: bilateral: CTA (no increased effort) - Cardiovascular Heart rate: 110 Rhythm: regular - Peripheral edema leg Peripheral Edema: bilateral: Trace - Gastrointestinal General gastrointestinal: Present: normal bowel sounds, soft - Neurologic Neurologic Comment(s): No focal Defects Neurologic: Present: CNII-XII intact - Musculoskeletal Musculoskeletal: Present: generalized weakness, strength equal bilaterally - Psychiatric Psychiatric: Present: A&O x's 3, appropriate affect, intact judgment & insight - Labs CBC & Chem 7: 01/21/18 06:41 01/21/18 06:41 Labs: Abnormal Lab Results - Last 24 Hours (Table) 01/12/18 01/20/18 01/20/18 Range/Units 04:39 17:10 20:15 WBC (3.8-10.6) k/uL RBC (3.80-5.40) m/uL Hgb (11.4-16.0) gm/dL Hct (34.0-46.0) % Plt Count (150-450) k/uL Chloride (98-107) mmol/L BUN (7-17) mg/dL POC Glucose (mg/dL) 143 H 161 H (75-99) mg/dL Uric Acid (3.7-7.4) mg/dL Total Protein (6.3-8.2) g/dL Albumin (3.5-5.0) g/dL A. alternata IgG Ab 27.9 H (< 13.6) mcg/mL Cladosporium herbar IgG 23.9 H (< 14.7) mcg/mL Phoma species IgG Ab 27.2 H (< 6.6) mcg/mL 01/21/18 01/21/18 01/21/18 Range/Units 06:41 06:41 07:10 WBC 0.9 L* (3.8-10.6) k/uL RBC 2.50 L (3.80-5.40) m/uL Hgb 7.9 L (11.4-16.0) gm/dL Hct 23.6 L (34.0-46.0) % Plt Count 44 L* (150-450) k/uL Chloride 109 H (98-107) mmol/L BUN 19 H (7-17) mg/dL POC Glucose (mg/dL) 71 L (75-99) mg/dL Uric Acid 2.0 L (3.7-7.4) mg/dL Total Protein 6.1 L (6.3-8.2) g/dL Albumin 3.2 L (3.5-5.0) g/dL A. alternata IgG Ab (< 13.6) mcg/mL Cladosporium herbar IgG (< 14.7) mcg/mL Phoma species IgG Ab (< 6.6) mcg/mL Microbiology - Last 24 Hours (Table) 01/10/18 11:38 Acid Fast Bacilli Smear - Final Lung - Left Upper Lobe Acid Fast Bacilli Culture - Preliminary Assessment and Plan Plan: Assessment and Plan (1) Acute myeloid leukemia Narrative/Plan: The patient's pathology report has been discussed with the pathologist at [facility]. It was indicated that the diagnosis most likely was acute myeloid leukemia. The formal pathology report is now available. It confirms the presence of increased number of myeloid blasts. On flow cytometric, as well as cell count, the percentage of blasts is greater than 20%. This is compatible with acute myeloid leukemia. On CD34 staining, the percentage was in the 10% range. Significant increase in immature monocytes are also noted . The overall picture per the pathologist, was felt to definitely favor acute myeloid leukemia (though RAEB-2 was in the differential). The clinically, the patient's course has been quite aggressive, consistent with acute myeloid leukemia. Therefore discussed in detail with the patient her own, and then again later in the day with her and her family. They were advised that based on the clinical presentation and pathology, the patient appears to have acute myeloid leukemia and should be treated as such. She has had an echocardiogram done, which reveals essentially normal ejection fraction, as well as a PICC line placed. Current treatment recommendations for induction per NCCN guidelines were discussed in detail. The standard 7+3 regimen has been recommended, and was discussed in detail. We discussed prognosis with and without treatment. Side effects during and postchemotherapy were also discussed. They indicated that they're willing to proceed. The patient will be transferred to the floor oncology. Chemotherapy orders have been submitted to her pharmacy. I did contact pharmacy to start the regimen. The patient will be closely monitored with clinical exams, and labs including labsmfor tumor lysis, which have been ordered. She will be started on allopurinol. Elitek will be utilized if necessary - Day #6 if induction of 7 plus 3 induction chemotherapy and tolerating well, continue to monitor for s/s/ of infection, bleeding, tumor lysis, and mental status changes. - No Evidence of tumor lysis at this time Current Visit: Yes Status: Acute Code(s): C92.00 - ACUTE MYELOBLASTIC LEUKEMIA, NOT HAVING ACHIEVED REMISSION SNOMED Code(s): 06831042 (2) Pancytopenia Secondary to AML and Chemotherapy Narrative/Plan: - Continue daily cbc draws - Transfusion Support with Leuko-reduced irradiated products only for Hemoglobin less than 7, platlets less than 10 Current Visit: Yes Status: Acute Priority: High Code(s): D61.818 - OTHER PANCYTOPENIA SNOMED Code(s): 994864046 (3) Pneumonia Narrative/Plan: - The patient is much improved in terms of her respiratory status. Case was discussed with the admitting service and pulmonary medicine on 01/16/18. - Defer to the admitting service, ID and pulmonary medicine for continued treatment. Current Visit: Yes Status: Acute Code(s): J18.9 - PNEUMONIA, UNSPECIFIED ORGANISM SNOMED Code(s): 243721732
[2018-01-21 16:34] LABS: Glucose,Whole Blood 221 mg/dL (75-99)
[2018-01-21 20:19] LABS: Glucose,Whole Blood 176 mg/dL (75-99)
[2018-01-21] MEDS: MONTELUKAST 10 MG TAB PO SCH (20:41)
[2018-01-21] MEDS: INSULIN DETEMIR 100 UNIT/ML 10 ML VIAL SQ SCH (20:41)
[2018-01-21] MEDS: FAMOTIDINE 20 MG/2 ML VIAL IV SCH (21:36)
[2018-01-21] MEDS: ONDANSETRON 16 MG in SODIUM CHLORIDE 0.9% 50 ML IVPB SCH (21:36)
--- NOTE | 2018-01-21 23:20 | P.PN ---
Subjective Progress Note Date: 01/21/18 This is a 53-year-old female patient known to ID service as she was seen during her hospitalization in July of this year. At that time she was treated for acute asthma exacerbation complicated by influenza B tracheobronchitis. ID was consulted regarding a cellulitis of the lower extremities. Patient was discharged home on Keflex. Regarding her legs, patient states that they occasionally get red but not a significant problem at this time. Patient states that she has had for about the last month difficulty with ambulating very far and early fatigue and shortness of breath. She states she has been sick for about one week or more with fever and worsening shortness of breath along with cough. She came into [facility] emergency center and on CAT scan of the chest done on 01/06 showed new extensive bilateral pulmonary airspace infiltrate consistent with acute asthma. Increased hair a tracheal adenopathy. She was originally treated with Levaquin and has been switched over to meropenem by Dr. Rubalcava. Patient is also been febrile with pancytopenia. Mycoplasma pneumoniae IgM was normal and Legionella antigen was not detected. Flow cytology recommends consideration of a marrow examination. Consult has been added for oncology. Patient has had ongoing difficulty with hypoxia and remains on high flow nasal cannula at 10 L pulse oxing 86%. She states she becomes extremely winded is getting to the commode chair. Her course has been complicated by episode of epistaxis which is now controlled and also initially vomiting which is also been resolved. She does state that she has 4 episodes of diarrhea today. 01/10/2018 patient has had some progression of her status in that her pulmonary status has not improved and her leukopenia and anemia have worsened. She has been seen by both pulmonary critical care and oncology and constantly has now undergone a bronchoscopy and a bone marrow aspiration. She has respiratory failure and required ongoing mechanical ventilation after her bronchoscopy,is in the intensive care unit. She is sedated but not requiring vasopressor therapy. January 13 the patient has had significant improvement of her status. The patient has tolerated extubation and is now down to 2 L nasal cannula with adequate oxygenation. The levels improved. She is eating without great difficulties. Shortness of breath at rest is improved. Denies discomforts. She did have a bit of a nosebleed earlier that has resolved. Potentially also had some vaginal bleeding that is also improved. 01/14/2018 patient is feeling somewhat better but remains on supplemental oxygen because of her shortness of breath. Pneumonia seems to be improving with current therapy. She relates that diarrhea has improved other than her profound fatigue she is not having new acute symptoms. Appetite is adequate without nausea or emesis. 01/17/2018 there is no been confirmation for acute myelogenous leukemia and she has been started on the 7+3 regimen. She's having no acute difficulties yet at this point in time. Her shortness of breath is markedly improved. She's having no fevers or chills. No acute bleeding at this time. Vaginal bleeding is improved. January 18 2018 patient is feeling relatively well this time. She is less short of breath. Tolerating chemotherapy without nausea or emesis. No fevers or chills. 01/20/2018 the patient is tolerating her chemotherapy well. She is not becoming neutropenic. She however is denying fevers or chills. She's having no nausea or emesis and denies any new acute difficulties. Appetite is adequate and she has no mucositis. 01/21/2018 continues to do well with her chemotherapy. No fevers or chills. Eating well. No nausea or emesis. Objective - Vital Signs Vital signs: Vital Signs Temp 97.6 F 01/21/18 20:00 Pulse 72 01/21/18 20:00 Resp 18 01/21/18 20:00 BP 106/79 01/21/18 20:00 Pulse Ox 96 01/21/18 20:00 Intake & Output 01/21/18 01/21/18 01/22/18 06:59 18:59 06:59 Intake Total 1530 1068 880 Balance 1530 1068 880 Weight 135.5 kg Intake: IV 700 900 400 Meropenem 2 gm In Sodium 100 Chloride 0.9% 100 ml @ 200 mls/hr IVPB Q8HR STEPHEN Rx#:[id number] Sodium Chloride 0.9% 1, 700 800 400 000 ml @ 100 mls/hr IV . Q10H STEPHEN Rx#:[id number] Intake, IV Titration 168 Amount Cytarabine/Pf 220 mg In 168 Sodium Chloride 0.9% 500 ml @ 21.292 mls/hr IV Q24H STEPHEN Rx#:[id number] Oral 830 480 Other: Voiding Method Toilet Toilet Toilet # Voids 8 2 ABP, PAP, CO, CI - Last Documented Arterial Blood Pressure 133/61 - Exam Gen: This is a morbidly obese 53-year-old female. She is status post bronchoscopy as well as bone marrow aspiration. She required intubation for the bronchoscopy and she is now extubated and doing well. His transfer to oncology and started chemotherapy and has a good attitude. HEENT: Head is atraumatic, normocephalic. Pupils equal, round. Sclerae is anicteric. Conjunctiva pink. Mucous members of the mouth are moist. No thrush noted. NECK: Supple. No JVD. No lymphadenopathy. No thyromegaly. LUNGS: Diminished bilaterally. No wheezes. Mild intercostal retractions. HEART: Regular rate and rhythm. No murmur. ABDOMEN: Soft. Bowel sounds are present. No masses. No tenderness. EXTREMITIES: Trace bilateral pedal edema. No calf tenderness. Dorsalis pedis + 2 bilaterally. NEUROLOGICAL: Awake alert oriented person place and time with no acute gross focal sensory motor deficits - Labs CBC & Chem 7: 01/21/18 06:41 01/21/18 06:41 Labs: Abnormal Lab Results - Last 24 Hours (Table) 01/12/18 01/21/18 01/21/18 Range/Units 04:39 06:41 06:41 WBC 0.9 L* (3.8-10.6) k/uL RBC 2.50 L (3.80-5.40) m/uL Hgb 7.9 L (11.4-16.0) gm/dL Hct 23.6 L (34.0-46.0) % Plt Count 44 L* (150-450) k/uL Chloride 109 H (98-107) mmol/L BUN 19 H (7-17) mg/dL POC Glucose (mg/dL) (75-99) mg/dL Uric Acid 2.0 L (3.7-7.4) mg/dL Total Protein 6.1 L (6.3-8.2) g/dL Albumin 3.2 L (3.5-5.0) g/dL A. alternata IgG Ab 27.9 H (< 13.6) mcg/mL Cladosporium herbar IgG 23.9 H (< 14.7) mcg/mL Phoma species IgG Ab 27.2 H (< 6.6) mcg/mL 07/31/18 07/31/18 07/31/18 Range/Units 07:10 16:24 20:17 WBC (3.8-10.6) k/uL RBC (3.80-5.40) m/uL Hgb (11.4-16.0) gm/dL Hct (34.0-46.0) % Plt Count (150-450) k/uL Chloride (98-107) mmol/L BUN (7-17) mg/dL POC Glucose (mg/dL) 71 L 221 H 176 H (75-99) mg/dL Uric Acid (3.7-7.4) mg/dL Total Protein (6.3-8.2) g/dL Albumin (3.5-5.0) g/dL A. alternata IgG Ab (< 13.6) mcg/mL Cladosporium herbar IgG (< 14.7) mcg/mL Phoma species IgG Ab (< 6.6) mcg/mL Microbiology - Last 24 Hours (Table) 01/10/18 11:38 Acid Fast Bacilli Smear - Final Lung - Left Upper Lobe Acid Fast Bacilli Culture - Preliminary Laboratory Results WBC 0.9 k/uL (3.8-10.6) L* 01/21/18 06:41 RBC 2.50 m/uL (3.80-5.40) L 01/21/18 06:41 Hgb 7.9 gm/dL (11.4-16.0) L 01/21/18 06:41 Hct 23.6 % (34.0-46.0) L 01/21/18 06:41 MCV 94.5 fL (80.0-100.0) 01/21/18 06:41 MCH 31.5 pg (25.0-35.0) 01/21/18 06:41 MCHC 33.4 g/dL (31.0-37.0) 01/21/18 06:41 RDW 14.8 % (11.5-15.5) 01/21/18 06:41 Plt Count 44 k/uL (150-450) L* 01/21/18 06:41 Basophils % (Manual) 1 % 01/05/18 08:50 Neutrophils % (Manual) 16 % 01/19/18 08:15 Metamyelocytes % 2 % 01/13/18 04:00 Band Neutrophils % 1 % 01/17/18 07:08 Lymphocytes % (Manual) 56 % 01/19/18 08:15 Monocytes % (Manual) 28 % 01/19/18 08:15 Eosinophils % (Manual) 1 % 01/18/18 06:07 Myelocytes % 1 % 01/17/18 07:08 Promyelocytes % 1 % 01/15/18 08:45 Blast Cells % 1 % 01/18/18 06:07 Other Cells % % 01/18/18 06:07 Neutrophils # (Manual) 0.18 k/uL (1.3-7.7) L 01/19/18 08:15 Lymphocytes # (Manual) 0.62 k/uL (1.0-4.8) L 01/19/18 08:15 Basophils # (Manual) 0.03 k/uL (0-0.2) 01/05/18 08:50 Metamyelocytes # (Man) 0.22 k/uL (0) H 01/13/18 04:00 Monocytes # (Manual) 0.31 k/uL (0-1.0) 01/19/18 08:15 Eosinophils # (Manual) 0.03 k/uL (0-0.7) 01/18/18 06:07 Myelocytes # (Manual) 0.14 k/uL (0) H 01/17/18 07:08 Promyelocytes # (Man) 0.28 k/uL (0) H 01/15/18 08:45 Pathologist Review See comment A 01/05/18 08:50 Blast Cells # (Man) 0.03 k/uL (0) H 01/18/18 06:07 Nucleated RBCs 0 /100 WBC (0-0) 01/19/18 08:15 Differential Comment 01/21/18 06:41 Manual Slide Review Performed 01/21/18 06:41 RBC Morphology Normal 01/13/18 04:00 Hypochromasia (manual) Present 01/11/18 04:15 Macrocytosis Slight 01/10/18 08:08 Poikilocytosis (manual Present 01/17/18 07:08 Anisocytosis (manual) Present 01/15/18 08:45 PT 10.6 sec (9.0-12.0) 01/16/18 07:23 INR 1.1 (<1.2) 01/16/18 07:23 APTT 22.6 sec (22.0-30.0) 01/16/18 07:23 Sample Site kathi 01/10/18 14:10 ABG pH 7.32 (7.35-7.45) L 01/10/18 14:10 ABG pCO2 55 mmHg (35-45) H 01/10/18 14:10 ABG pO2 106 mmHg (83-108) 01/10/18 14:10 ABG HCO3 28 mmol/L (21-25) H 01/10/18 14:10 ABG Total CO2 30 mmol/L (19-24) H 01/10/18 14:10 ABG O2 Saturation 97.9 % (94-97) H 01/10/18 14:10 ABG Base Excess 2.3 mmol/L 01/10/18 14:10 Bk Test no 01/10/18 14:10 FiO2 100 % 01/10/18 14:10 Sodium 140 mmol/L (137-145) 01/21/18 06:41 Potassium 5.0 mmol/L (3.5-5.1) 01/21/18 06:41 Chloride 109 mmol/L (98-107) H 01/21/18 06:41 Carbon Dioxide 24 mmol/L (22-30) 01/21/18 06:41 Anion Gap 7 mmol/L 01/21/18 06:41 BUN 19 mg/dL (7-17) H 01/21/18 06:41 Creatinine 0.75 mg/dL (0.52-1.04) 01/21/18 06:41 Est GFR (CKD-EPI)AfAm >90 (>60 ml/min/1.73 sqM) 01/21/18 06:41 Est GFR (CKD-EPI)NonAf >90 (>60 ml/min/1.73 sqM) 01/21/18 06:41 Glucose 78 mg/dL (74-99) 01/21/18 06:41 POC Glucose (mg/dL) 176 mg/dL (75-99) H 01/21/18 20:17 POC Glu Foxing Closer ID Dana Polanco 01/21/18 20:[address] Glu mg/dL 177 01/05/18 08:50 Hemoglobin A1c 7.8 % (4.0-6.0) H 01/05/18 08:50 Lactic Ac Sepsis Rflx Y 01/04/18 20:51 Plasma Lactic Acid [place] 0.8 mmol/L (0.7-2.0) 01/04/18 23:55 Uric Acid 2.0 mg/dL (3.7-7.4) L 01/21/18 06:41 Calcium 8.6 mg/dL (8.4-10.2) 01/21/18 06:41 Phosphorus 3.4 mg/dL (2.5-4.5) 01/21/18 06:41 Magnesium 2.2 mg/dL (1.6-2.3) 01/15/18 08:45 Total Bilirubin 1.2 mg/dL (0.2-1.3) 01/21/18 06:41 AST 20 U/L (14-36) 01/21/18 06:41 ALT 26 U/L (9-52) 01/21/18 06:41 Alkaline Phosphatase 55 U/L (38-126) 01/21/18 06:41 Total Creatine Kinase 49 U/L (30-135) 01/04/18 20:00 CK-MB (CK-2) <0.2 ng/mL (0.0-2.4) 01/04/18 20:00 CK-MB (CK-2) Rel Index 01/04/18 20:00 Troponin I <0.012 ng/mL (0.000-0.034) 01/04/18 20:00 NT-Pro-B Natriuret Pep 576 pg/mL 01/06/18 08:35 Total Protein 6.1 g/dL (6.3-8.2) L 01/21/18 06:41 Albumin 3.2 g/dL (3.5-5.0) L 01/21/18 06:41 Angiotensin Convert Enz 29 U/L (8-52) 01/12/18 04:39 A. pullulans Allrg IgG 9.5 mcg/mL (< 13.6) 01/12/18 04:39 Urine Color Yellow 01/04/18 20:00 Urine Appearance Clear (Clear) 01/04/18 20:00 Urine pH 7.0 (5.0-8.0) 01/04/18 20:[address] [place] [address] 1.010 (1.001-1.035) 01/04/18 20:00 Urine Protein Negative (Negative) 01/04/18 20:00 Urine Glucose (UA) Negative (Negative) 01/04/18 20:00 Urine Ketones Negative (Negative) 01/04/18 20:00 Urine Blood Negative (Negative) 01/04/18 20:00 Urine Nitrite Negative (Negative) 01/04/18 20:00 Urine Bilirubin Negative (Negative) 01/04/18 20:00 Urine Urobilinogen <2.0 mg/dL (<2.0) 01/04/18 20:00 Ur Leukocyte Esterase Negative (Negative) 01/04/18 20:00 Fluid Source Bronchial Wash 01/10/18 11:38 Fluid Color Colorless 01/10/18 11:38 Fluid Appearance Blood Tinged 01/10/18 11:38 Fluid RBC 680 /uL 01/10/18 11:38 Fluid Nucleated Cells 20 /uL 01/10/18 11:38 Fluid Polynuclear WBCs 64 % 01/10/18 11:38 Fluid Mononuclear WBCs 35 % 01/10/18 11:38 Fluid Eosinophils 1 % 01/10/18 11:38 c-ANCA <1:20 Titer (<1:20) 01/12/18 04:39 p-ANCA <1:20 Titer (<1:20) 01/12/18 04:39 Urine Legionella Ag Not detected (Not detected) 01/06/18 16:51 Mycoplasma pneumon IgM 0.22 INDEX (<=0.90) 01/06/18 08:35 Saccharo. viridis Ab Not detected (Not detected) 01/12/18 04:39 T. candidus Antibody Not detected (Not detected) 01/12/18 04:39 T. sacchari Antibody Not detected (Not detected) 01/12/18 04:39 T. vulgaris Antibody Not detected (Not detected) 01/12/18 04:39 A. alternata IgG Ab 27.9 mcg/mL (< 13.6) H 01/12/18 04:39 Aspergill fumigatus Ab Not detected (Not detected) 01/12/18 04:39 Cladosporium herbar IgG 23.9 mcg/mL (< 14.7) H 01/12/18 04:39 Penicillium notatum IgG 8.1 mcg/mL (< 17.5) 01/12/18 04:39 Phoma species IgG Ab 27.2 mcg/mL (< 6.6) H 01/12/18 04:39 Trichoderma viride IgG 5.5 mcg/mL (< 13.4) 01/12/18 04:39 S. rectivirgula Not detected (Not detected) 01/12/18 04:39 Virus Source See Below 01/10/18 11:38 Viral Test See Below 01/10/18 11:38 Virus Analysis Interp See Below 01/10/18 11:38 Flow Results See Path Report 01/10/18 12:00 Miscellaneous Test Pneumocystis PCR 01/10/18 11:38 Misc Test Result See comment 01/10/18 11:38 Microbiology 01/10/18 11:38 Lung - Left Upper Lobe Acid Fast Bacilli Smear - Final 01/10/18 11:38 Lung - Left Upper Lobe Acid Fast Bacilli Culture - Preliminary 01/10/18 11:38 Lung - Left Upper Lobe Fungal Culture - Preliminary Shae albicans 01/06/18 18:42 Blood Blood Culture - Final No Growth after 144 hours 01/06/18 18:20 Blood Blood Culture - Final No Growth after 144 hours 01/10/18 11:38 Bronchial Washings - Left Gram Stain - Final 01/10/18 11:38 Bronchial Washings - Left Bronchial Washings Culture - Final Shae albicans 01/10/18 08:00 Sputum Gram Stain - Final 01/10/18 08:00 Sputum Sputum Culture - Final Shae albicans 01/04/18 20:00 Blood Blood Culture - Final No Growth after 144 hours 01/04/18 20:00 Urine,Voided Urine Culture - Final Assessment and Plan (1) Pneumonia Narrative/Plan: This pleasant 53-year-old woman is have underlying asthma and last time she was ill she had cellulitis prior to that she had influenza B and exacerbation of her asthma. Now presents with progressive acute illness. Has been seen in the outpatient setting by oncology because of leukopenia. Workup had been started. Patient is not having difficulties with worsening leukopenia anemia and bleeding. She remains acutely ill with pneumonia and is also having difficulties with diarrhea. The patient has now been seen again by oncology and the peripheral smear is markedly abnormal with blasts that are evident and consequently they are planning for the bone marrow biopsy and aspirate as soon as they possibly can. At this time she is on broad-spectrum antibiotic therapy. Her fevers are controlled and she is stable. Certainly if she has acute leukemia will be worried about an Aspergillus infection. Galactomannan antigen testing is requested at this time to guide treatment. 01/10/2018 the patient is now status post bronchoscopy and has remained intubated sedated and mechanically ventilated, bone marrow aspiration also performed. Findings the bronchoscopy to further help direct antimicrobial therapy including the potential addition of antifungal therapy for Aspergillus. She fortunately is quite comfortable at this point in time. She is profoundly ill and await the bone marrow results determine if there is a significant derangement of the bone marrow. Is on Merrem and is not febrile but has progressive leukopenia. 01/13/2018 the patient is now markedly improved such that she is extubated sitting upright in a chair and has had her meal without difficulties. Bronchoscopy was performed and she did require transient intubation, since extubation she is feeling better. Respiratory status improved. She is titrated to 2 liters nasal cannula and does not feel short of breath at rest. Does not have any significant new discomforts. The bone marrow aspiration results remain pending, peripheral blood showed about 10% blast, and now 55% monocytes. The oncology input is also pending at this time. We'll complete 7 days of meropenem. A fungal evaluation does not reveal evidence of aspergillosis, she is also negative for Legionella and Mycoplasma. 01/14/2018 patient remains improved but is still quite short of breath with activity requiring O2 to ambulate. However she certainly has had improvement of her respiratory status. Cultures are negative so far. The case is discussed with the oncologist, the bone marrow aspiration is still pending at this point in time but they agree that there is evidence of blasts in many monocytes that are atypical and concerns for underlying myelomonocytic disease. Hopefully this will be back in the morning and they can discuss with her the plan for treatment. As noted 7 days of meropenem are being requested to complete the treatment of her pneumonia is allowed a marked improvement. Aspergillus testing is negative by BAL, Aspergillus antigen and galactomannan testing. 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 The BAL testing hasl now been completed and is negative for Aspergillus, bacterial pathogens, pneumocystis, and virus. Is completing her course of meropenem for her recent pneumonia. Receiving salt and soda for mouth hygiene and will be monitored for other infections. She has now on chemotherapy for her AML. 01/18/2018 patient has begun chemotherapy and is on the 3 of the 7+3 protocol. Seems to tolerating it well. Not having fevers. His other couple days of antibiotic therapy with meropenem for her pneumonia. Overall is stable at this time. Leukocytosis is responding to the chemotherapy no blasts are noted in the most recent smear. December patient is beginning day 5 for 7+3 protocol and has been tolerating quite well. She's having no stomach and nausea or emesis and no other new acute changes. She's becoming neutropenic but is not having any new symptoms. We'll complete 2 further days of meropenem for the pneumonia admission that likely is multifactorial, but is having marked improvement of her status. We'll likely transition to oral antibiotic therapy for home. 01/21/2018 patient continues through her course of chemotherapy tolerating it extremely well. She hasn't 1 further day of meropenem to complete the treatment of her pneumonia fortunately she is markedly improved. She is ready for discharge to home will then consider transition to some oral antibiotic therapy. Current Visit: Yes Status: Acute Code(s): J18.9 - PNEUMONIA, UNSPECIFIED ORGANISM SNOMED Code(s): 119029924 (2) Pancytopenia Current Visit: Yes Status: Acute Priority: High Code(s): D61.818 - OTHER PANCYTOPENIA SNOMED Code(s): 165084195 (3) Obesity, Class III, BMI 40-49.9 (morbid obesity) Current Visit: No Status: Acute Code(s): E66.01 - MORBID (SEVERE) OBESITY DUE TO EXCESS CALORIES SNOMED Code(s): 295616617
[2018-01-22] MEDS: SODIUM CHLORIDE 0.9% IV SCH (00:01)
[2018-01-22] MEDS: CYTARABINE IV SCH (00:01)
[2018-01-22] MEDS: MEROPENEM 2 GM in SODIUM CHLORIDE 0.9% 100 ML IVPB SCH ×3 (00:07→17:46)
[2018-01-22] MEDS: LEVOTHYROXINE 125 MCG TAB PO SCH (06:11)
[2018-01-22 07:34] LABS: HCT 21.5 % (34.0-46.0); HGB 7.5 gm/dL (11.4-16.0); MCH 32.4 pg (25.0-35.0); MCV 92.4 fL (80.0-100.0); RBC 2.33 m/uL (3.80-5.40); RDW 14.5 % (11.5-15.5)
[2018-01-22 07:42] LABS: Platelet Count 33 k/uL (150-450); WBC 0.8 k/uL (3.8-10.6)
[2018-01-22 07:47] LABS: Glucose,Whole Blood 81 mg/dL (75-99)
[2018-01-22] MEDS: INSULIN ASPART 100 UNIT/ML 1 ML 10 ML VIAL SQ SCH ×7 (07:51→20:55)
[2018-01-22] MEDS: FUROSEMIDE 10 MG/ML 2 ML VIAL IV SCH ×2 (08:00→21:14)
[2018-01-22] MEDS: FLUTICASONE 50MCG/SPRAY NASAL 16GM EA NOSTRIL SCH (08:00)
[2018-01-22] MEDS: NYSTATIN 100,000 UNIT/ML SUSP 500,000 UNIT/5 ML CUP PO SCH ×4 (08:00→20:55)
[2018-01-22] MEDS: PANTOPRAZOLE 40 MG/10 ML VIAL IV SCH (08:00)
[2018-01-22] MEDS: predniSONE 10 MG TAB PO SCH (08:00)
[2018-01-22] MEDS: ATORVASTATIN 20 MG TAB PO SCH (08:01)
[2018-01-22] MEDS: ALLOPURINOL 300 MG TAB PO SCH ×2 (08:01→20:53)
[2018-01-22] MEDS: ESCITALOPRAM 10 MG TAB PO SCH (08:01)
[2018-01-22] MEDS: LORATADINE 10 MG TAB PO SCH (08:01)
[2018-01-22] MEDS: POTASSIUM CHLORIDE ER 20 MEQ TAB.ER PO SCH ×3 (08:01→20:58)
[2018-01-22] MEDS: FERROUS SULFATE 325 MG TAB PO SCH (08:01)
[2018-01-22] MEDS: ASPIRIN 81 MG PO SCH (08:01)
[2018-01-22] MEDS: CALCIUM CARB-VIT D 500MG-200UN 1 EACH TAB PO SCH (08:01)
[2018-01-22] MEDS: HEPARIN SODIUM,PORCINE 5,000 UNIT/ML 1 ML VIAL SQ SCH ×2 (08:01→17:45)
[2018-01-22] MEDS: METOPROLOL TARTRATE 50 MG TAB PO SCH ×2 (08:01→20:55)
[2018-01-22] MEDS: SALT AND SODA MOUTHWASH 1,000 ML PO SCH ×4 (08:02→20:56)
[2018-01-22] MEDS: AMMONIUM LACTATE 12% LOTION 225 GM BTL TOPICAL SCH ×2 (08:02→20:53)
[2018-01-22 08:49] LABS: Anisocytosis (M) Present; Poikilocytosis (M) Present
[2018-01-22 09:06] LABS: ALT 32 U/L (9-52); AST 19 U/L (14-36); Albumin 3.1 g/dL (3.5-5.0); Alkaline Phosphatase 44 U/L (38-126); Anion Gap 7 mmol/L; Calcium 8.4 mg/dL (8.4-10.2); Carbon Dioxide 24 mmol/L (22-30); Chloride 109 mmol/L (98-107); Glucose 78 mg/dL (74-99); Phosphorus 3.1 mg/dL (2.5-4.5); Sodium 140 mmol/L (137-145); Total Bilirubin 1.1 mg/dL (0.2-1.3); Uric Acid 1.4 mg/dL (3.7-7.4)
[2018-01-22 09:09] LABS: Blood Urea Nitrogen 19 mg/dL (7-17); Potassium 5.2 mmol/L (3.5-5.1)
[2018-01-22] MEDS: SYMBICORT 160-4.5 MCG INHALER INHALATION SCH ×2 (09:22→20:13)
[2018-01-22 11:37] LABS: Glucose,Whole Blood 136 mg/dL (75-99)
[2018-01-22] MEDS: CYANOCOBALAMIN 500 MCG TAB PO SCH (12:41)
[2018-01-22] MEDS: SODIUM CHLORIDE 0.9% 1,000 ML IV SCH ×2 (12:41→23:08)
--- NOTE | 2018-01-22 13:42 | P.PN ---
Subjective Progress Note Date: 01/22/18 Principal diagnosis: Leukemia She is Day #7 Induction of 7+3. She has responded well to treatment of pneumonia. She denies any complaints of N/V/D/C, She has remained afebrile. Objective - Vital Signs Vital signs: Vital Signs Temp 98 F 01/22/18 12:00 Pulse 61 01/22/18 12:00 Resp 18 01/22/18 12:00 BP 123/79 01/22/18 12:00 Pulse Ox 91 L 01/22/18 12:00 Intake & Output 01/21/18 01/22/18 01/22/18 18:59 06:59 18:59 Intake Total 1068 2514 Balance 1068 2514 Weight 134 kg Intake: IV 900 1300 Meropenem 2 gm In Sodium 100 200 Chloride 0.9% 100 ml @ 200 mls/hr IVPB Q8HR [facility] Rx#:[id number] Sodium Chloride 0.9% 1, 800 1100 000 ml @ 100 mls/hr IV . Q10H [facility] Rx#:[id number] Intake, IV Titration 168 384 Amount Cytarabine/Pf 220 mg In 168 284 Sodium Chloride 0.9% 500 ml @ 21.292 mls/hr IV Q24H [facility] Rx#:[id number] Ondansetron 8 mg In 100 Sodium Chloride 0.9% 50 ml @ 100 mls/hr IVPB BID PRN Rx#:[id number] Oral 830 Other: Voiding Method Toilet Toilet Toilet # Voids 3 ABP, PAP, CO, CI - Last Documented Arterial Blood Pressure 133/61 - Constitutional General appearance: Present: cooperative, no acute distress, obese - EENT Eyes: Present: EOMI, dentition normal ENT: Present: NA/AT, normal oropharynx - Neck Details: Neck Supple, Trachea Midline Neck: Present: normal ROM - Respiratory Respiratory: bilateral: CTA (No increased effort, Body habitus difficult for lower lobe assessment. ), negative: rhonchi, wheezing - Cardiovascular Rhythm: regular Heart sounds: normal: S1, S2 - Peripheral edema leg Peripheral Edema: bilateral: Trace - Gastrointestinal Gastrointestinal Comment(s): MOrbid Obesity General gastrointestinal: Present: normal bowel sounds, soft - Integumentary Integumentary: Present: pale - Neurologic Neurologic Comment(s): No focal Defects Neurologic: Present: CNII-XII intact - Musculoskeletal Musculoskeletal: Present: gait normal, generalized weakness, strength equal bilaterally - Psychiatric Psychiatric: Present: A&O x's 3, appropriate affect, intact judgment & insight - Labs CBC & Chem 7: 01/22/18 07:11 01/22/18 07:11 Labs: Abnormal Lab Results - Last 24 Hours (Table) 01/21/18 01/21/18 01/22/18 Range/Units 16:24 20:17 07:11 WBC 0.8 L* (3.8-10.6) k/uL RBC 2.33 L (3.80-5.40) m/uL Hgb 7.5 L (11.4-16.0) gm/dL Hct 21.5 L (34.0-46.0) % Plt Count 33 L* (150-450) k/uL Potassium (3.5-5.1) mmol/L Chloride (98-107) mmol/L BUN (7-17) mg/dL POC Glucose (mg/dL) 221 H 176 H (75-99) mg/dL Uric Acid (3.7-7.4) mg/dL Total Protein (6.3-8.2) g/dL Albumin (3.5-5.0) g/dL 01/22/18 01/22/18 Range/Units 07:11 11:33 WBC (3.8-10.6) k/uL RBC (3.80-5.40) m/uL Hgb (11.4-16.0) gm/dL Hct (34.0-46.0) % Plt Count (150-450) k/uL Potassium 5.2 H (3.5-5.1) mmol/L Chloride 109 H (98-107) mmol/L BUN 19 H (7-17) mg/dL POC Glucose (mg/dL) 136 H (75-99) mg/dL Uric Acid 1.4 L (3.7-7.4) mg/dL Total Protein 6.0 L (6.3-8.2) g/dL Albumin 3.1 L (3.5-5.0) g/dL Assessment and Plan Plan: Assessment and Plan (1) Acute myeloid leukemia Narrative/Plan: The patient's pathology report has been discussed with the pathologist at [facility]. It was indicated that the diagnosis most likely was acute myeloid leukemia. The formal pathology report is now available. It confirms the presence of increased number of myeloid blasts. On flow cytometric, as well as cell count, the percentage of blasts is greater than 20%. This is compatible with acute myeloid leukemia. On CD34 staining, the percentage was in the 10% range. Significant increase in immature monocytes are also noted . The overall picture per the pathologist, was felt to definitely favor acute myeloid leukemia (though RAEB-2 was in the differential). The clinically, the patient's course has been quite aggressive, consistent with acute myeloid leukemia. Therefore discussed in detail with the patient her own, and then again later in the day with her and her family. They were advised that based on the clinical presentation and pathology, the patient appears to have acute myeloid leukemia and should be treated as such. She has had an echocardiogram done, which reveals essentially normal ejection fraction, as well as a PICC line placed. Current treatment recommendations for induction per NCCN guidelines were discussed in detail. The standard 7+3 regimen has been recommended, and was discussed in detail. We discussed prognosis with and without treatment. Side effects during and postchemotherapy were also discussed. They indicated that they're willing to proceed. The patient will be transferred to the floor oncology. Chemotherapy orders have been submitted to her pharmacy. I did contact pharmacy to start the regimen. The patient will be closely monitored with clinical exams, and labs including labsmfor tumor lysis, which have been ordered. She will be started on allopurinol. Elitek will be utilized if necessary - Day #7 if induction of 7 plus 3 induction chemotherapy and tolerating well, continue to monitor for s/s/ of infection, bleeding, tumor lysis, and mental status changes. - No Evidence of tumor lysis at this time - She will be placed on acyclovir, diflucan, and antibacterial (per ID) prophylaxis at discharge Once her counts start to recover or up to day 14 (whichever first) she will be scheduled for a repeat Bone marrow to check for remission status. Current Visit: Yes Status: Acute Code(s): C92.00 - ACUTE MYELOBLASTIC LEUKEMIA, NOT HAVING ACHIEVED REMISSION SNOMED Code(s): 89609614 (2) Pancytopenia Secondary to AML and Chemotherapy Narrative/Plan: - Continue daily cbc draws - Transfusion Support with Leuko-reduced irradiated products only for Hemoglobin less than 7, platlets less than 10 Current Visit: Yes Status: Acute Priority: High Code(s): D61.818 - OTHER PANCYTOPENIA SNOMED Code(s): 732062496 (3) Pneumonia Narrative/Plan: - The patient is much improved in terms of her respiratory status. Case was discussed with the admitting service and pulmonary medicine on 01/16/18. - Defer to the admitting service, ID and pulmonary medicine for continued treatment. Current Visit: Yes Status: Acute Code(s): J18.9 - PNEUMONIA, UNSPECIFIED ORGANISM SNOMED Code(s): 627302180
[2018-01-22 17:04] LABS: Glucose,Whole Blood 160 mg/dL (75-99)
--- NOTE | 2018-01-22 17:07 | P.PN ---
Subjective Progress Note Date: 01/22/18 Progress note being dictated for Dr. Amos. Interval history: Patient is a 53-year-old male with a known history of hypertension, diabetes type II and previous history of diverticulitis came to ER with complaints of left-sided abdominal pain along with fever and chills worsening for the past 3 days. Patient was also having increased shortness of breath and chest pain with deep breathing. Patient does have cough but without much sputum production. No nausea vomiting. No diarrhea. Patient thought that she was having diverticulitis again and came to the hospital for further evaluation. Patient had diverticular [place] 2 months ago. Denied any sick contacts. No travel. Patient felt generally weak and generalized body aches. Patient was febrile on admission. Denies any leg swelling, back pain, peripheral paresthesias, headaches, sore throat, upper respiratory symptoms. T-max 101.8 Chest x-ray showed cardiomegaly and chronic changes without suspicious acute infiltrate. CT of abdomen pelvis showed new multifocal groundglass opacities in the lung base could reflect new multifocal pneumonia. Correlate clinically Attention to her uterus abnormal prominence of the central endometrium could reflect trapped fluid in the endometrial canal., Abnormal thickening cannot be excluded. Advise nonemergent pelvic ultrasound follow-up tofurther assess. Review of Systems Constitutional: Patient does have fever and chills and muscle aches and generalized body weakness Abdomen: Patient denied nausea vomiting. Patient does have abdominal pain. Cardiovascular: Patient denies any chest pain or short of breath no palpitations. Respiratory: Cough without sputum production. Patient does have shortness of breath Neurologic: Patient denied any numbness or tingling headache. Musculoskeletal: Patient denies any complaints of joint swelling or deformity. Skin: Negative Psychiatric: Negative Endocrine: No heat or cold intolerance. No recent weight gain. Genitourinary: No dysuria or hematuria. All other 14 point ROS negative except the above 01/06/2018 denies cough, desatted, maintaining O2 sats of 86-87% on 4 L nasal cannula, respiratory rate 20, tachycardic. ABGs ordered. Sitting up at side of bed, conversing without shortness of breath. Currently afebrile, T-max 101.1 , blood cultures pending.Denies chest pain, palpitations or increasing shortness of breath. Pancytopenia currently being worked up outpatient with Dr. Atkinson. 01/07/18 T-max 101.7.dyspnea continues ,currently maintaining O2 sats in the high 80s to low 90s on 10 L high flow nasal cannula O2 . Currently wearing 50% Ventimask. Short of breath with minimal exertion, limited reserve. CT reporting new extensive bilateral pulmonary airspace infiltrates compared to prior exam, acute pneumonia, increased paratracheal adenopathy. Mycoplasma IgM , Legionella urine antigen pending.Echo reporting low normal LV function, EF 50- 55%. Developed nosebleed earlier, subsided. Received Levaquin, now receiving Merrem. Infectious disease consulted. 01/08/2018 continues on high flow nasal cannula 10 L. chest x-ray with no significant change .afebrile, T-max 100.7. Steroids initiated yesterday, hyperglycemic. flow cytometry pathology reporting myeloid blasts with consideration of marrow examination. Mycoplasma IgM antibody and Legionella not detected. Multiple episodes of diarrhea reported. 01/09/2018 no overnight events, remains on 10 L high flow nasal cannula maintaining O2 sats in the high 80s to low 90s. Minimal sputum production. Afebrile, cultures currently negative. Scheduled for diagnostic bronchoscopy, bone marrow biopsy tomorrow. 01/10/2018 maintained on Merrem as per infectious disease. Afebrile, cultures negative. continues on 10 L high flow nasal cannula with current O2 sats in the mid 90s.NPO, awaiting bronchoscopy and bone marrow biopsy today. Denies chest pain, palpitations. 01/11/18 Patient was admitted with acute hypoxic respiratory failure and bilateral infiltrates consistent with pneumonia patient is being treated for healthcare associated pneumonia patient did not have any significant improvement because of which patient underwent bronchoscopy which did not show any significant past. There is a concern about hematologic malignancy because of which patient the had a biopsy of the bone marrow. Patient has significant bladder blast cells in the peripheral smear. Because of which we believe patient is immunosuppressive patient may have Pneumocystis carinii pneumonia or a fungal pneumonia. Patient was intubated SA they're able to extubate the patient today patient is on aspirin cannula oxygen. Patient is presently on meropenem Is presently on 8 L of oxygen 01/12/2018 Patient remains on meropenem all the workup from bronchial lower lobe large remains negative patient is on 10 L of onset at this time aspirin cultures is showing Shae although we do not believe it's significant. Autoimmune workup is being guarded Constitutional: Denied any fatigue denied any fever. Cardio vascular: denied any chest pain, palpitations Gastrointestinal denied any nausea vomiting Pulmonary: Denied any shortness of breath cough Neurologic denied any new focal deficits 01/13/18 chest x-ray reporting stable chronic changes, pneumonia versus CHF. Maintained on Merrem. Afebrile, preliminary bronch cultures negative. Bone marrow biopsy results pending. WBC improving, up to 10.9. Weaned down to 3 L nasal cannula O2. 01/14/2018 breathing significantly improved, transferred out of ICU to Med[facility] unit. Oxygen weaned down to 2 L nasal cannula, maintaining O2 sats of 92%. Bronchoscopy cultures reporting Shae, cytology reporting no cytologically malignant cells.Awaiting to discuss bone marrow biopsy results with oncology/hematology. Sitting up in chair, denies increase in shortness of breath, no chest pain, no palpitations. 01/15/2018 Patient is clinically doing well is on 2 L of oxygen will obtain PT and OT consultation possibility of discharge tomorrow all the workup is negative unsure of the exact etiology of acute lung injury can be related to atypical pneumonia followed by acute lung injury or acute lung injury can be secondary to acute leukemia as well. 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 Oncology will discuss with the patient regarding options of chemo therapy as an inpatient during this hospitalization because of the aggressive nature of the leukemia. Constitutional: Denied any fatigue denied any fever. Cardio vascular: denied any chest pain, palpitations Gastrointestinal denied any nausea vomiting Pulmonary: Denied any shortness of breath cough Neurologic denied any new focal deficits 01/22/2018 continues on chemotherapy, last dose reported as tomorrow. Tolerating well, good diet intake, no nausea, no vomiting, no diarrhea. Afebrile. Maintained on IV antibiotics as per infectious disease. 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 Denies chest pain, palpitations or increased shortness of breath. Platelets 33, hemoglobin 7.5, WBC 0.8. Objective - Vital Signs Vital signs: Vital Signs Temp 98.1 F 01/22/18 15:49 Pulse 67 01/22/18 15:49 Resp 18 01/22/18 15:49 BP 125/82 01/22/18 15:49 Pulse Ox 93 L 01/22/18 15:49 Intake & Output 01/21/18 01/22/18 01/22/18 18:59 06:59 18:59 Intake Total 1068 2514 240 Balance 1068 2514 240 Weight 134 kg Intake: IV 900 1300 Meropenem 2 gm In Sodium 100 200 Chloride 0.9% 100 ml @ 200 mls/hr IVPB Q8HR [facility] Rx#:[id number] Sodium Chloride 0.9% 1, 800 1100 000 ml @ 100 mls/hr IV . Q10H [facility] Rx#:[id number] Intake, IV Titration 168 384 Amount Cytarabine/Pf 220 mg In 168 284 Sodium Chloride 0.9% 500 ml @ 21.292 mls/hr IV Q24H [facility] Rx#:[id number] Ondansetron 8 mg In 100 Sodium Chloride 0.9% 50 ml @ 100 mls/hr IVPB BID PRN Rx#:[id number] Oral 830 240 Other: Voiding Method Toilet Toilet Toilet # Voids 3 3 ABP, PAP, CO, CI - Last Documented Arterial Blood Pressure 133/61 - Exam PHYSICAL EXAMINATION: GENERAL: The patient is alert and oriented x3, sitting up in bed, not in any acute distress. HEENT: Pupils are round and equally reacting to light. EOMI. No scleral icterus. No conjunctival pallor. Normocephalic, atraumatic. Oral mucosa moist CARDIOVASCULAR: S1 and S2 present. No murmurs, rubs, or gallops. PULMONARY: Lungs clear to auscultation, Bilateral bases diminished, no rhonchi, no crackles, no wheezing ABDOMEN: Soft, nontender, nondistended, normoactive bowel sounds. No palpable organomegaly. MUSCULOSKELETAL: No joint swelling or deformity. EXTREMITIES: No cyanosis, clubbing, mild pedal edema. NEUROLOGICAL: Gross neurological examination did not reveal any focal deficits. Microbiology 01/10/18 11:38 Lung - Left Upper Lobe Acid Fast Bacilli Smear - Final 01/10/18 11:38 Lung - Left Upper Lobe Acid Fast Bacilli Culture - Preliminary 01/10/18 11:38 Lung - Left Upper Lobe Fungal Culture - Preliminary Shae albicans 01/06/18 18:42 Blood Blood Culture - Final No Growth after 144 hours 01/06/18 18:20 Blood Blood Culture - Final No Growth after 144 hours 01/10/18 11:38 Bronchial Washings - Left Gram Stain - Final 01/10/18 11:38 Bronchial Washings - Left Bronchial Washings Culture - Final Shae albicans 01/10/18 08:00 Sputum Gram Stain - Final 01/10/18 08:00 Sputum Sputum Culture - Final Shae albicans 01/04/18 20:00 Blood Blood Culture - Final No Growth after 144 hours 01/04/18 20:00 Urine,Voided Urine Culture - Final - Labs CBC & Chem 7: 01/22/18 07:11 01/22/18 07:11 Labs: Abnormal Lab Results - Last 24 Hours (Table) 01/21/18 01/22/18 01/22/18 Range/Units 20:17 07:11 07:11 WBC 0.8 L* (3.8-10.6) k/uL RBC 2.33 L (3.80-5.40) m/uL Hgb 7.5 L (11.4-16.0) gm/dL Hct 21.5 L (34.0-46.0) % Plt Count 33 L* (150-450) k/uL Potassium 5.2 H (3.5-5.1) mmol/L Chloride 109 H (98-107) mmol/L BUN 19 H (7-17) mg/dL POC Glucose (mg/dL) 176 H (75-99) mg/dL Uric Acid 1.4 L (3.7-7.4) mg/dL Total Protein 6.0 L (6.3-8.2) g/dL Albumin 3.1 L (3.5-5.0) g/dL 01/22/18 Range/Units 11:33 WBC (3.8-10.6) k/uL RBC (3.80-5.40) m/uL Hgb (11.4-16.0) gm/dL Hct (34.0-46.0) % Plt Count (150-450) k/uL Potassium (3.5-5.1) mmol/L Chloride (98-107) mmol/L BUN (7-17) mg/dL POC Glucose (mg/dL) 136 H (75-99) mg/dL Uric Acid (3.7-7.4) mg/dL Total Protein (6.3-8.2) g/dL Albumin (3.5-5.0) g/dL Assessment and Plan Assessment: Acute hypoxic respiratory failure secondary to acute bilateral pneumonia, community-acquired Acute AML on chemotherapy Sepsis with increased lactic acid, present on admission, resolved Severe neutropenia, secondary to chemotherapy Chronic bronchial asthma Hypertension Hyperlipidemia Hypothyroidism Chronic back pain Recent history of acute diverticulitis Anxiety, depression Morbid obesity with BMI 54.8 Diabetes mellitus, elevated hemoglobin A1c 7.8 Plan: Continue on current medication regime ,monitoring and symptomatic treatment. Antibiotics as per Infectious disease. Continues on chemotherapy with highest dose reported as tomorrow night. Discharge planning in progress for Saturday. Increase ambulation as tolerated. The impression and plan of care has been dictated as directed. : I performed a history and examination of this patient, discussed the same with the dictator. I agree with the dictator's note ,documented as a scribe. Any additional findings or plans will be noted.
[2018-01-22 20:30] LABS: Glucose,Whole Blood 128 mg/dL (75-99)
[2018-01-22] MEDS: MONTELUKAST 10 MG TAB PO SCH (20:55)
[2018-01-22] MEDS: INSULIN DETEMIR 100 UNIT/ML 10 ML VIAL SQ SCH (21:15)
[2018-01-22] MEDS: ACYCLOVIR 200 MG CAP PO SCH (21:15)
[2018-01-22] MEDS: FAMOTIDINE 20 MG/2 ML VIAL IV SCH (23:07)
[2018-01-22] MEDS: ONDANSETRON 16 MG in SODIUM CHLORIDE 0.9% 50 ML IVPB SCH (23:56)
[2018-01-23] MEDS: CYTARABINE IV SCH (00:08)
[2018-01-23] MEDS: SODIUM CHLORIDE 0.9% IV SCH (00:08)
[2018-01-23] MEDS: HEPARIN SODIUM,PORCINE 5,000 UNIT/ML 1 ML VIAL SQ SCH ×2 (00:25→09:28)
[2018-01-23] MEDS: MEROPENEM 2 GM in SODIUM CHLORIDE 0.9% 100 ML IVPB SCH ×3 (00:26→16:40)
[2018-01-23] MEDS: ZOLPIDEM 10 MG TAB PO SCH (00:29)
[2018-01-23] MEDS: LEVOTHYROXINE 125 MCG TAB PO SCH (06:15)
[2018-01-23 07:03] LABS: Glucose,Whole Blood 88 mg/dL (75-99)
[2018-01-23] MEDS: INSULIN ASPART 100 UNIT/ML 1 ML 10 ML VIAL SQ SCH ×7 (07:32→21:01)
[2018-01-23 07:37] LABS: HCT 22.2 % (34.0-46.0); HGB 7.5 gm/dL (11.4-16.0); MCH 32.5 pg (25.0-35.0); MCHC 33.7 g/dL (31.0-37.0); MCV 96.4 fL (80.0-100.0); RDW 14.7 % (11.5-15.5)
[2018-01-23 07:39] LABS: Platelet Count 29 k/uL (150-450); WBC 0.9 k/uL (3.8-10.6)
[2018-01-23 07:41] LABS: ALT 36 U/L (9-52); AST 15 U/L (14-36); Albumin 3.2 g/dL (3.5-5.0); Alkaline Phosphatase 52 U/L (38-126); Anion Gap 5 mmol/L; Blood Urea Nitrogen 18 mg/dL (7-17); Carbon Dioxide 27 mmol/L (22-30); Chloride 109 mmol/L (98-107); Glucose 84 mg/dL (74-99); Potassium 3.8 mmol/L (3.5-5.1); Sodium 141 mmol/L (137-145); Total Bilirubin 0.9 mg/dL (0.2-1.3); Total Protein 5.8 g/dL (6.3-8.2); Uric Acid 1.2 mg/dL (3.7-7.4)
[2018-01-23] MEDS: FUROSEMIDE 10 MG/ML 2 ML VIAL IV SCH ×2 (09:01→21:00)
[2018-01-23] MEDS: AMMONIUM LACTATE 12% LOTION 225 GM BTL TOPICAL SCH ×2 (09:01→21:00)
[2018-01-23] MEDS: NYSTATIN 100,000 UNIT/ML SUSP 500,000 UNIT/5 ML CUP PO SCH ×4 (09:01→21:02)
[2018-01-23] MEDS: LORATADINE 10 MG TAB PO SCH (09:01)
[2018-01-23] MEDS: ACYCLOVIR 200 MG CAP PO SCH ×2 (09:01→21:00)
[2018-01-23] MEDS: CALCIUM CARB-VIT D 500MG-200UN 1 EACH TAB PO SCH (09:01)
[2018-01-23] MEDS: predniSONE 10 MG TAB PO SCH (09:02)
[2018-01-23] MEDS: METOPROLOL TARTRATE 50 MG TAB PO SCH ×2 (09:02→21:02)
[2018-01-23] MEDS: ALLOPURINOL 300 MG TAB PO SCH ×2 (09:02→21:00)
[2018-01-23] MEDS: ATORVASTATIN 20 MG TAB PO SCH (09:02)
[2018-01-23] MEDS: ESCITALOPRAM 10 MG TAB PO SCH (09:02)
[2018-01-23] MEDS: FERROUS SULFATE 325 MG TAB PO SCH (09:02)
[2018-01-23] MEDS: POTASSIUM CHLORIDE ER 20 MEQ TAB.ER PO SCH ×2 (09:02→21:02)
[2018-01-23] MEDS: SODIUM CHLORIDE 0.9% 1,000 ML IV SCH ×2 (09:07→18:28)
[2018-01-23] MEDS: SYMBICORT 160-4.5 MCG INHALER INHALATION SCH ×2 (09:17→20:34)
[2018-01-23] MEDS: PANTOPRAZOLE 40 MG/10 ML VIAL IV SCH (09:28)
[2018-01-23] MEDS: SALT AND SODA MOUTHWASH 1,000 ML PO SCH ×4 (09:29→21:02)
[2018-01-23 12:20] LABS: Glucose,Whole Blood 95 mg/dL (75-99)
--- NOTE | 2018-01-23 12:59 | P.PN ---
Subjective Progress Note Date: 01/23/18 Principal diagnosis: Leukemia She is Day #8 Induction of 7+3. She continues to be afebrile and no acute complaints. She is moving bowels daily. She is however requiring oxygen since this hospital stay and the diagnosis of pneumonia, which she did not require previously. Per the patient the plan is to send home with oxygen. Objective - Vital Signs Vital signs: Vital Signs Temp 98.2 F 01/23/18 08:04 Pulse 79 01/23/18 08:04 Resp 16 01/23/18 08:04 BP 123/71 01/23/18 08:04 Pulse Ox 93 L 01/23/18 09:23 Intake & Output 01/22/18 01/23/18 01/23/18 18:59 06:59 18:59 Intake Total 240 1580 Output Total 400 Balance -160 1580 Weight 133.5 kg Intake: IV 1100 Meropenem 2 gm In Sodium 100 Chloride 0.9% 100 ml @ 200 mls/hr IVPB Q8HR [facility] Rx#:[id number] Sodium Chloride 0.9% 1, 1000 000 ml @ 100 mls/hr IV . Q10H [facility] Rx#:[id number] Intake, IV Titration 80 Amount Cytarabine/Pf 220 mg In 80 Sodium Chloride 0.9% 500 ml @ 21.292 mls/hr IV Q24H [facility] Rx#:[id number] Oral 240 400 Output: Urine 400 Other: Voiding Method Toilet Toilet Toilet # Voids 3 1 ABP, PAP, CO, CI - Last Documented Arterial Blood Pressure 133/61 - Constitutional General appearance: Present: cooperative, no acute distress, obese - EENT Eyes: Present: EOMI, PERRLA, dentition normal ENT: Present: NA/AT, normal oropharynx - Neck Details: Supple, Trachea midline Neck: Present: normal ROM - Respiratory Respiratory: bilateral: CTA (No increased respiratory effort) - Cardiovascular Rhythm: regular Heart sounds: normal: S1, S2 - Peripheral edema foot Peripheral Edema: bilateral: Trace - Gastrointestinal Gastrointestinal Comment(s): Morbid Obesity General gastrointestinal: Present: normal bowel sounds, soft - Integumentary Integumentary Comment(s): Areas of bruising, eccymosis under right arm and on legs, abdomen Integumentary: Present: pale - Neurologic Neurologic Comment(s): No focal Defects Neurologic: Present: CNII-XII intact - Musculoskeletal Musculoskeletal: Present: gait normal, generalized weakness, strength equal bilaterally - Psychiatric Psychiatric: Present: A&O x's 3, appropriate affect, intact judgment & insight - Labs CBC & Chem 7: 01/23/18 06:59 01/23/18 06:59 Labs: Abnormal Lab Results - Last 24 Hours (Table) 01/22/18 01/22/18 01/23/18 Range/Units 17:03 20:29 06:59 WBC 0.9 L* (3.8-10.6) k/uL RBC 2.30 L (3.80-5.40) m/uL Hgb 7.5 L (11.4-16.0) gm/dL Hct 22.2 L (34.0-46.0) % Plt Count 29 L* (150-450) k/uL Chloride (98-107) mmol/L BUN (7-17) mg/dL POC Glucose (mg/dL) 160 H 128 H (75-99) mg/dL Uric Acid (3.7-7.4) mg/dL Calcium (8.4-10.2) mg/dL Total Protein (6.3-8.2) g/dL Albumin (3.5-5.0) g/dL 01/23/18 Range/Units 06:59 WBC (3.8-10.6) k/uL RBC (3.80-5.40) m/uL Hgb (11.4-16.0) gm/dL Hct (34.0-46.0) % Plt Count (150-450) k/uL Chloride 109 H (98-107) mmol/L BUN 18 H (7-17) mg/dL POC Glucose (mg/dL) (75-99) mg/dL Uric Acid 1.2 L (3.7-7.4) mg/dL Calcium 8.0 L (8.4-10.2) mg/dL Total Protein 5.8 L (6.3-8.2) g/dL Albumin 3.2 L (3.5-5.0) g/dL Assessment and Plan Plan: Assessment and Plan (1) Acute myeloid leukemia Narrative/Plan: The patient's pathology report has been discussed with the pathologist at [facility]. It was indicated that the diagnosis most likely was acute myeloid leukemia. The formal pathology report is now available. It confirms the presence of increased number of myeloid blasts. On flow cytometric, as well as cell count, the percentage of blasts is greater than 20%. This is compatible with acute myeloid leukemia. On CD34 staining, the percentage was in the 10% range. Significant increase in immature monocytes are also noted . The overall picture per the pathologist, was felt to definitely favor acute myeloid leukemia (though RAEB-2 was in the differential). The clinically, the patient's course has been quite aggressive, consistent with acute myeloid leukemia. Therefore discussed in detail with the patient her own, and then again later in the day with her and her family. They were advised that based on the clinical presentation and pathology, the patient appears to have acute myeloid leukemia and should be treated as such. She has had an echocardiogram done, which reveals essentially normal ejection fraction, as well as a PICC line placed. Current treatment recommendations for induction per NCCN guidelines were discussed in detail. The standard 7+3 regimen has been recommended, and was discussed in detail. We discussed prognosis with and without treatment. Side effects during and postchemotherapy were also discussed. They indicated that they're willing to proceed. The patient will be transferred to the floor oncology. Chemotherapy orders have been submitted to her pharmacy. I did contact pharmacy to start the regimen. The patient will be closely monitored with clinical exams, and labs including labsmfor tumor lysis, which have been ordered. She will be started on allopurinol. Elitek will be utilized if necessary - Day #8 if induction of 7 plus 3 induction chemotherapy and tolerating well, continue to monitor for s/s/ of infection, bleeding, tumor lysis, and mental status changes. - No Evidence of tumor lysis at this time - She will be placed on acyclovir, diflucan, and antibacterial (per ID) prophylaxis at discharge Once her counts start to recover or up to day 14 (whichever first) she will be scheduled for a repeat Bone marrow to check for remission status. We will follow her CBC 2-3 x a week while her count recovers post induction as an outpatient and supportive infusions will be given. Current Visit: Yes Status: Acute Code(s): C92.00 - ACUTE MYELOBLASTIC LEUKEMIA, NOT HAVING ACHIEVED REMISSION SNOMED Code(s): 77666505 (2) Pancytopenia Secondary to AML and Chemotherapy Narrative/Plan: - Continue daily cbc draws - Transfusion Support with Leuko-reduced irradiated products only for Hemoglobin less than 7, platlets less than 10 Hemoglobin 7.5 and Platelets 29 today, no transfusion needed Current Visit: Yes Status: Acute Priority: High Code(s): D61.818 - OTHER PANCYTOPENIA SNOMED Code(s): 493640601 (3) Pneumonia Narrative/Plan: - The patient is much improved in terms of her respiratory status. Case was discussed with the admitting service and pulmonary medicine on 01/16/18. - Defer to the admitting service, ID and pulmonary medicine for continued treatment. Current Visit: Yes Status: Acute Code(s): J18.9 - PNEUMONIA, UNSPECIFIED ORGANISM SNOMED Code(s): 687691149
[2018-01-23] MEDS: CYANOCOBALAMIN 500 MCG TAB PO SCH (13:13)
[2018-01-23 17:34] LABS: Glucose,Whole Blood 180 mg/dL (75-99)
--- NOTE | 2018-01-23 18:39 | P.PN ---
Subjective Progress Note Date: 01/23/18 Progress note being dictated for Dr. Amos. Interval history: Patient is a 53-year-old male with a known history of hypertension, diabetes type II and previous history of diverticulitis came to ER with complaints of left-sided abdominal pain along with fever and chills worsening for the past 3 days. Patient was also having increased shortness of breath and chest pain with deep breathing. Patient does have cough but without much sputum production. No nausea vomiting. No diarrhea. Patient thought that she was having diverticulitis again and came to the hospital for further evaluation. Patient had diverticular Blaine 2 months ago. Denied any sick contacts. No travel. Patient felt generally weak and generalized body aches. Patient was febrile on admission. Denies any leg swelling, back pain, peripheral paresthesias, headaches, sore throat, upper respiratory symptoms. T-max 101.8 Chest x-ray showed cardiomegaly and chronic changes without suspicious acute infiltrate. CT of abdomen pelvis showed new multifocal groundglass opacities in the lung base could reflect new multifocal pneumonia. Correlate clinically Attention to her uterus abnormal prominence of the central endometrium could reflect trapped fluid in the endometrial canal., Abnormal thickening cannot be excluded. Advise nonemergent pelvic ultrasound follow-up tofurther assess. Review of Systems Constitutional: Patient does have fever and chills and muscle aches and generalized body weakness Abdomen: Patient denied nausea vomiting. Patient does have abdominal pain. Cardiovascular: Patient denies any chest pain or short of breath no palpitations. Respiratory: Cough without sputum production. Patient does have shortness of breath Neurologic: Patient denied any numbness or tingling headache. Musculoskeletal: Patient denies any complaints of joint swelling or deformity. Skin: Negative Psychiatric: Negative Endocrine: No heat or cold intolerance. No recent weight gain. Genitourinary: No dysuria or hematuria. All other 14 point ROS negative except the above 01/06/2018 denies cough, desatted, maintaining O2 sats of 86-87% on 4 L nasal cannula, respiratory rate 20, tachycardic. ABGs ordered. Sitting up at side of bed, conversing without shortness of breath. Currently afebrile, T-max 101.1 , blood cultures pending.Denies chest pain, palpitations or increasing shortness of breath. Pancytopenia currently being worked up outpatient with Dr. Atkinson. 01/07/18 T-max 101.7.dyspnea continues ,currently maintaining O2 sats in the high 80s to low 90s on 10 L high flow nasal cannula O2 . Currently wearing 50% Ventimask. Short of breath with minimal exertion, limited reserve. CT reporting new extensive bilateral pulmonary airspace infiltrates compared to prior exam, acute pneumonia, increased paratracheal adenopathy. Mycoplasma IgM , Legionella urine antigen pending.Echo reporting low normal LV function, EF 50- 55%. Developed nosebleed earlier, subsided. Received Levaquin, now receiving Merrem. Infectious disease consulted. 01/08/2018 continues on high flow nasal cannula 10 L. chest x-ray with no significant change .afebrile, T-max 100.7. Steroids initiated yesterday, hyperglycemic. flow cytometry pathology reporting myeloid blasts with consideration of marrow examination. Mycoplasma IgM antibody and Legionella not detected. Multiple episodes of diarrhea reported. 01/09/2018 no overnight events, remains on 10 L high flow nasal cannula maintaining O2 sats in the high 80s to low 90s. Minimal sputum production. Afebrile, cultures currently negative. Scheduled for diagnostic bronchoscopy, bone marrow biopsy tomorrow. 01/10/2018 maintained on Merrem as per infectious disease. Afebrile, cultures negative. continues on 10 L high flow nasal cannula with current O2 sats in the mid 90s.NPO, awaiting bronchoscopy and bone marrow biopsy today. Denies chest pain, palpitations. 01/11/18 Patient was admitted with acute hypoxic respiratory failure and bilateral infiltrates consistent with pneumonia patient is being treated for healthcare associated pneumonia patient did not have any significant improvement because of which patient underwent bronchoscopy which did not show any significant past. There is a concern about hematologic malignancy because of which patient the had a biopsy of the bone marrow. Patient has significant bladder blast cells in the peripheral smear. Because of which we believe patient is immunosuppressive patient may have Pneumocystis carinii pneumonia or a fungal pneumonia. Patient was intubated SA they're able to extubate the patient today patient is on aspirin cannula oxygen. Patient is presently on meropenem Is presently on 8 L of oxygen 01/12/2018 Patient remains on meropenem all the workup from bronchial lower lobe large remains negative patient is on 10 L of onset at this time aspirin cultures is showing Shae although we do not believe it's significant. Autoimmune workup is being guarded Constitutional: Denied any fatigue denied any fever. Cardio vascular: denied any chest pain, palpitations Gastrointestinal denied any nausea vomiting Pulmonary: Denied any shortness of breath cough Neurologic denied any new focal deficits 01/13/18 chest x-ray reporting stable chronic changes, pneumonia versus CHF. Maintained on Merrem. Afebrile, preliminary bronch cultures negative. Bone marrow biopsy results pending. WBC improving, up to 10.9. Weaned down to 3 L nasal cannula O2. 01/14/2018 breathing significantly improved, transferred out of ICU to Medr unit. Oxygen weaned down to 2 L nasal cannula, maintaining O2 sats of 92%. Bronchoscopy cultures reporting Shae, cytology reporting no cytologically malignant cells.Awaiting to discuss bone marrow biopsy results with oncology/hematology. Sitting up in chair, denies increase in shortness of breath, no chest pain, no palpitations. 01/15/2018 Patient is clinically doing well is on 2 L of oxygen will obtain PT and OT consultation possibility of discharge tomorrow all the workup is negative unsure of the exact etiology of acute lung injury can be related to atypical pneumonia followed by acute lung injury or acute lung injury can be secondary to acute leukemia as well. 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 Oncology will discuss with the patient regarding options of chemo therapy as an inpatient during this hospitalization because of the aggressive nature of the leukemia. Constitutional: Denied any fatigue denied any fever. Cardio vascular: denied any chest pain, palpitations Gastrointestinal denied any nausea vomiting Pulmonary: Denied any shortness of breath cough Neurologic denied any new focal deficits 01/22/2018 continues on chemotherapy, last dose reported as tomorrow. Tolerating well, good diet intake, no nausea, no vomiting, no diarrhea. Afebrile. Maintained on IV antibiotics as per infectious disease. At night and during the hostess cashier hours patient has been descending into the high 80s low 90s, requiring oxygen supplementation. Denies chest pain, palpitations or increased shortness of breath. Platelets 33, hemoglobin 7.5, WBC 0.8. 01/23/2018 no overnight event, receiving last chemotherapy today. Platelets 29, heparin subcu placed on hold. Afebrile. Hemoglobin 7.5, and ABC 0.9. Good diet intake, no nausea, no vomiting, no diarrhea. Objective - Vital Signs Vital signs: Vital Signs Temp 98.1 F 01/23/18 16:00 Pulse 68 01/23/18 16:00 Resp 18 01/23/18 16:00 BP 115/78 01/23/18 16:00 Pulse Ox 93 L 01/23/18 16:00 Intake & Output 01/22/18 01/23/18 01/23/18 18:59 06:59 18:59 Intake Total 240 1580 500 Output Total 400 Balance -160 1580 500 Weight 133.5 kg Intake: IV 1100 Meropenem 2 gm In Sodium 100 Chloride 0.9% 100 ml @ 200 mls/hr IVPB Q8HR STEPH[facility] Rx#:[id number] Sodium Chloride 0.9% 1, 1000 000 ml @ 100 mls/hr IV . Q10H [facility]PH[facility] Rx#:[id number] Intake, IV Titration 80 Amount Cytarabine/Pf 220 mg In 80 Sodium Chloride 0.9% 500 ml @ 21.292 mls/hr IV Q24H STEPH[facility] Rx#:[id number] Oral 240 400 500 Output: Urine 400 Other: Voiding Method Toilet Toilet Toilet # Voids 3 1 2 # Bowel Movements 1 ABP, PAP, CO, CI - Last Documented Arterial Blood Pressure 133/61 - Exam PHYSICAL EXAMINATION: GENERAL: The patient is alert and oriented x3, sitting up in bed, no acute distress. HEENT: Pupils are round and equally reacting to light. EOMI. No scleral icterus. No conjunctival pallor. Normocephalic, atraumatic. Oral mucosa moist CARDIOVASCULAR: S1 and S2 present. No murmurs, rubs, or gallops. PULMONARY: Lungs clear to auscultation, Bilateral bases diminished, no rhonchi, no crackles, no wheezing ABDOMEN: Soft, nontender, nondistended, normoactive bowel sounds. No palpable organomegaly. MUSCULOSKELETAL: No joint swelling or deformity. EXTREMITIES: No cyanosis, clubbing, mild pedal edema. NEUROLOGICAL: Gross neurological examination did not reveal any focal deficits. Microbiology 01/10/18 11:38 Lung - Left Upper Lobe Acid Fast Bacilli Smear - Final 01/10/18 11:38 Lung - Left Upper Lobe Acid Fast Bacilli Culture - Preliminary 01/10/18 11:38 Lung - Left Upper Lobe Fungal Culture - Preliminary Shae albicans 01/06/18 18:42 Blood Blood Culture - Final No Growth after 144 hours 01/06/18 18:20 Blood Blood Culture - Final No Growth after 144 hours 01/10/18 11:38 Bronchial Washings - Left Gram Stain - Final 01/10/18 11:38 Bronchial Washings - Left Bronchial Washings Culture - Final Shae albicans 01/10/18 08:00 Sputum Gram Stain - Final 01/10/18 08:00 Sputum Sputum Culture - Final Shae albicans 01/04/18 20:00 Blood Blood Culture - Final No Growth after 144 hours 01/04/18 20:00 Urine,Voided Urine Culture - Final - Labs CBC & Chem 7: 01/23/18 06:59 01/23/18 06:59 Labs: Abnormal Lab Results - Last 24 Hours (Table) 01/22/18 01/23/18 01/23/18 Range/Units 20:29 06:59 06:59 WBC 0.9 L* (3.8-10.6) k/uL RBC 2.30 L (3.80-5.40) m/uL Hgb 7.5 L (11.4-16.0) gm/dL Hct 22.2 L (34.0-46.0) % Plt Count 29 L* (150-450) k/uL Chloride 109 H (98-107) mmol/L BUN 18 H (7-17) mg/dL POC Glucose (mg/dL) 128 H (75-99) mg/dL Uric Acid 1.2 L (3.7-7.4) mg/dL Calcium 8.0 L (8.4-10.2) mg/dL Total Protein 5.8 L (6.3-8.2) g/dL Albumin 3.2 L (3.5-5.0) g/dL 01/23/18 Range/Units 17:33 WBC (3.8-10.6) k/uL RBC (3.80-5.40) m/uL Hgb (11.4-16.0) gm/dL Hct (34.0-46.0) % Plt Count (150-450) k/uL Chloride (98-107) mmol/L BUN (7-17) mg/dL POC Glucose (mg/dL) 180 H (75-99) mg/dL Uric Acid (3.7-7.4) mg/dL Calcium (8.4-10.2) mg/dL Total Protein (6.3-8.2) g/dL Albumin (3.5-5.0) g/dL Assessment and Plan Assessment: Acute hypoxic respiratory failure secondary to acute bilateral pneumonia, community-acquired Acute AML on chemotherapy Sepsis with increased lactic acid, present on admission, resolved Severe neutropenia, secondary to chemotherapy Chronic bronchial asthma Hypertension Hyperlipidemia Hypothyroidism Chronic back pain Recent history of acute diverticulitis Anxiety, depression Morbid obesity with BMI 54.8 Diabetes mellitus, elevated hemoglobin A1c 7.8 Plan: Continue on current medication regime ,monitoring and symptomatic treatment. Antibiotics as per Infectious disease. Completing last scheduled chemotherapy tonight. Discharge planning in progress for tomorrow. The impression and plan of care has been dictated as directed. : I performed a history and examination of this patient, discussed the same with the dictator. I agree with the dictator's note ,documented as a scribe. Any additional findings or plans will be noted.
[2018-01-23 20:33] LABS: Glucose,Whole Blood 179 mg/dL (75-99)
[2018-01-23] MEDS: INSULIN DETEMIR 100 UNIT/ML 10 ML VIAL SQ SCH (21:01)
[2018-01-23] MEDS: MONTELUKAST 10 MG TAB PO SCH (21:02)
[2018-01-24] MEDS: ZOLPIDEM 10 MG TAB PO SCH (00:16)
[2018-01-24] MEDS: SODIUM CHLORIDE 0.9% 1,000 ML IV SCH ×2 (04:13→13:55)
[2018-01-24 05:10] VITALS: BP 117/75; PULSE 75; RESP 18; TEMP 98.3
[2018-01-24] MEDS: LEVOTHYROXINE 125 MCG TAB PO SCH (06:25)
[2018-01-24 07:16] LABS: Glucose,Whole Blood 88 mg/dL (75-99)
[2018-01-24 07:45] LABS: HCT 21.4 % (34.0-46.0); HGB 7.3 gm/dL (11.4-16.0); MCH 32.7 pg (25.0-35.0); MCHC 34.1 g/dL (31.0-37.0); MCV 95.9 fL (80.0-100.0); Mean Platelet Volume 8.8; RBC 2.23 m/uL (3.80-5.40); RDW 14.4 % (11.5-15.5)
[2018-01-24 07:46] LABS: Platelet Count 19 k/uL (150-450); WBC 0.6 k/uL (3.8-10.6)
[2018-01-24 07:49] LABS: ALT 29 U/L (9-52); AST 12 U/L (14-36); Alkaline Phosphatase 54 U/L (38-126); Anion Gap 3 mmol/L; Blood Urea Nitrogen 16 mg/dL (7-17); Calcium 7.9 mg/dL (8.4-10.2); Carbon Dioxide 29 mmol/L (22-30); Chloride 108 mmol/L (98-107); Glucose 84 mg/dL (74-99); Phosphorus 2.5 mg/dL (2.5-4.5); Sodium 140 mmol/L (137-145); Total Protein 5.6 g/dL (6.3-8.2)
[2018-01-24] MEDS: INSULIN ASPART 100 UNIT/ML 1 ML 10 ML VIAL SQ SCH ×4 (08:02→13:06)
[2018-01-24] MEDS: ALLOPURINOL 300 MG TAB PO SCH (08:04)
[2018-01-24] MEDS: ACYCLOVIR 200 MG CAP PO SCH (08:04)
[2018-01-24] MEDS: CALCIUM CARB-VIT D 500MG-200UN 1 EACH TAB PO SCH (08:04)
[2018-01-24] MEDS: ATORVASTATIN 20 MG TAB PO SCH (08:04)
[2018-01-24] MEDS: METOPROLOL TARTRATE 50 MG TAB PO SCH (08:05)
[2018-01-24] MEDS: FLUTICASONE 50MCG/SPRAY NASAL 16GM EA NOSTRIL SCH (08:05)
[2018-01-24] MEDS: FERROUS SULFATE 325 MG TAB PO SCH (08:05)
[2018-01-24] MEDS: ESCITALOPRAM 10 MG TAB PO SCH (08:05)
[2018-01-24] MEDS: AMMONIUM LACTATE 12% LOTION 225 GM BTL TOPICAL SCH (08:05)
[2018-01-24] MEDS: SALT AND SODA MOUTHWASH 1,000 ML PO SCH ×2 (08:05→12:56)
[2018-01-24] MEDS: LORATADINE 10 MG TAB PO SCH (08:06)
[2018-01-24] MEDS: NYSTATIN 100,000 UNIT/ML SUSP 500,000 UNIT/5 ML CUP PO SCH ×2 (08:06→12:56)
[2018-01-24] MEDS: PANTOPRAZOLE 40 MG/10 ML VIAL IV SCH (08:06)
[2018-01-24] MEDS: predniSONE 10 MG TAB PO SCH (08:06)
[2018-01-24] MEDS: POTASSIUM CHLORIDE ER 20 MEQ TAB.ER PO SCH (08:06)
[2018-01-24] MEDS: FUROSEMIDE 10 MG/ML 2 ML VIAL IV SCH (08:10)
[2018-01-24 08:16] LABS: Anisocytosis (M) Present; Poikilocytosis (M) Present
[2018-01-24] MEDS: SYMBICORT 160-4.5 MCG INHALER INHALATION SCH (09:21)
--- NOTE | 2018-01-24 10:51 | P.DS ---
Providers Date of admission: 01/04/18 22:11 Attending physician: Niki Craig Consults: 01/06/18 14:32 Consult Physician Routine Consulting Provider: Geena Benton Consult Reason/Comments: pneumonia Do you want consulting provider notified?: Yes 01/07/18 15:46 Consult Physician Routine Consulting Provider: El Allen Consult Reason/Comments: leukopenia Do you want consulting provider notified?: Yes Consult Physician Urgent Consulting Provider: Reji Moore Consult Reason/Comments: extensive multifocal pneumonia, immunocompromised host Do you want consulting provider notified?: Yes Primary care physician: [facility] Course: Patient is a 53-year-old male with a known history of hypertension, diabetes type II and previous history of diverticulitis came to ER with complaints of left-sided abdominal pain along with fever and chills worsening for the past 3 days. Patient was also having increased shortness of breath and chest pain with deep breathing. Patient does have cough but without much sputum production. No nausea vomiting. No diarrhea. Patient thought that she was having diverticulitis again and came to the hospital for further evaluation. Patient had diverticular Blaine 2 months ago. Denied any sick contacts. No travel. Patient felt generally weak and generalized body aches. Patient was febrile on admission. Denies any leg swelling, back pain, peripheral paresthesias, headaches, sore throat, upper respiratory symptoms. T-max 101.8 Chest x-ray showed cardiomegaly and chronic changes without suspicious acute infiltrate. CT of abdomen pelvis showed new multifocal groundglass opacities in the lung base could reflect new multifocal pneumonia. Correlate clinically Attention to her uterus abnormal prominence of the central endometrium could reflect trapped fluid in the endometrial canal., Abnormal thickening cannot be excluded. Advise nonemergent pelvic ultrasound follow-up allan assess. 01/24/2018 Patient is clinically doing well has pancytopenia secondary to chemotherapy and after clearance from my oncology and infectious disease patient will be discharged today. PHYSICAL EXAMINATION: GENERAL: The patient is alert and oriented x3, not in any acute distress. Obese HEENT: Pupils are round and equally reacting to light. EOMI. No scleral icterus. No conjunctival pallor. Normocephalic, atraumatic. No pharyngeal erythema. No thyromegaly. CARDIOVASCULAR: S1 and S2 present. No murmurs, rubs, or gallops. PULMONARY: Chest is clear to auscultation, no wheezing or crackles. ABDOMEN: Soft, nontender, nondistended, normoactive bowel sounds. No palpable organomegaly. MUSCULOSKELETAL: No joint swelling or deformity. EXTREMITIES: No cyanosis, clubbing, or pedal edema. NEUROLOGICAL: Gross neurological examination did not reveal any focal deficits. SKIN: No rashes. 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 Aspirin is being discontinued because of thrombocytopenia Sepsis with increased lactic acid, present on admission, resolved Severe neutropenia, secondary to chemotherapy Chronic bronchial asthma Hypertension Hyperlipidemia Hypothyroidism Chronic back pain Anxiety, depression Morbid obesity with BMI 54.8 Diabetes mellitus, elevated hemoglobin A1c 7.8 Patient Condition at Discharge: Stable Plan - Discharge Summary Discharge Rx Participant: Yes New Discharge Prescriptions: New Cyanocobalamin (Vitamin B-12) [Vitamin B-12] 1,000 mcg PO DAILY 90 Days #90 tablet Acyclovir [Zovirax] 400 mg PO BID #14 cap Insulin Aspart [NovoLOG (formulary)] 4 unit SQ AC-TID vial Insulin Detemir [Levemir] 20 unit SQ HS syr Nystatin 100,000 Unit/ml Susp [Mycostatin Oral Susp] 500,000 unit PO QID #60 cup predniSONE 10 mg PO DAILY #20 tab Continue Omeprazole [PriLOSEC] 20 mg PO AC-BID Ferrous Sulfate [Iron (65 MG Elemental)] 325 mg PO DAILY Escitalopram Oxalate [Lexapro] 30 mg PO QAM Zolpidem [Ambien] 10 mg PO HS Loratadine [Claritin] 10 mg PO DAILY Fluticasone Nasal [place] [Flonase Nasal [place]] 1 spray EA NOSTRIL DAILY Atorvastatin [Lipitor] 20 mg PO DAILY Gabapentin [Neurontin] 300 mg PO TID Furosemide [Lasix] 20 mg PO BID Levothyroxine Sodium [Synthroid] 125 mcg PO DAILY Potassium Chloride [Klor-Con 20] 20 meq PO BID traMADol HCL [Ultram] 50 mg PO Q6HR PRN #1 tab PRN Reason: Pain Montelukast [Singulair] 10 mg PO HS Metoprolol Tartrate [Lopressor] 50 mg PO BID Calcium Carbonate/Vitamin D3 [Calcium 600-Vit D3 400 Caplet] 1 tab PO DAILY Ipratropium-Albuterol Nebulize [Duoneb 0.5 mg-3 mg/3 ml Soln] 3 ml INHALATION RT-QID PRN PRN Reason: Shortness Of Breath Budesonide/Formoterol Fumarate [Symbicort 160-4.5 Mcg Inhaler] 2 puff INHALATION RT-BID Albuterol Inhaler [Ventolin Hfa Inhaler] 2 puff INHALATION RT-QID PRN PRN Reason: Shortness Of Breath busPIRone HCl [Buspar] 5 mg PO BID Discontinued Aspirin [Adult Low Dose Aspirin EC] 81 mg PO DAILY Nystatin 100,000 Unit/gm Powd [Mycostatin Powder] 1 applic TOPICAL BID PRN PRN Reason: Rash Naproxen 500 mg PO DAILY PRN PRN Reason: Pain Discharge Medication List Escitalopram Oxalate [Lexapro] 30 mg PO QAM 05/04/16 [History] Ferrous Sulfate [Iron (65 MG Elemental)] 325 mg PO DAILY 05/04/16 [History] Omeprazole [PriLOSEC] 20 mg PO AC-BID 05/04/16 [History] Atorvastatin [Lipitor] 20 mg PO DAILY 10/26/16 [History] Fluticasone Nasal [place] [Flonase Nasal [place]] 1 spray EA NOSTRIL DAILY 10/26/16 [History] Loratadine [Claritin] 10 mg PO DAILY 10/26/16 [History] Zolpidem [Ambien] 10 mg PO HS 10/26/16 [History] Furosemide [Lasix] 20 mg PO BID 08/19/17 [History] Gabapentin [Neurontin] 300 mg PO TID 08/19/17 [History] Levothyroxine Sodium [Synthroid] 125 mcg PO DAILY 08/19/17 [History] Potassium Chloride [Klor-Con 20] 20 meq PO BID 08/19/17 [History] traMADol HCL [Ultram] 50 mg PO Q6HR PRN #1 tab 08/23/17 [Rx] Calcium Carbonate/Vitamin D3 [Calcium 600-Vit D3 400 Caplet] 1 tab PO DAILY [History] Metoprolol Tartrate [Lopressor] 50 mg PO BID 10/08/17 [History] Montelukast [Singulair] 10 mg PO HS 10/08/17 [History] Albuterol Inhaler [Ventolin Hfa Inhaler] 2 puff INHALATION RT-QID PRN 10/29/17 [ History] Budesonide/Formoterol Fumarate [Symbicort 160-4.5 Mcg Inhaler] 2 puff INHALATION RT-BID 10/29/17 [History] Ipratropium-Albuterol Nebulize [Duoneb 0.5 mg-3 mg/3 ml Soln] 3 ml INHALATION RT -QID PRN 10/29/17 [History] busPIRone HCl [Buspar] 5 mg PO BID 10/29/17 [History] Cyanocobalamin (Vitamin B-12) [Vitamin B-12] 1,000 mcg PO DAILY 90 Days #90 tablet 01/08/18 [Rx] Acyclovir [Zovirax] 400 mg PO BID #14 cap 01/24/18 [Rx] Insulin Aspart [NovoLOG (formulary)] 4 unit SQ AC-TID vial 01/24/18 [Rx] Insulin Detemir [Levemir] 20 unit SQ HS syr 01/24/18 [Rx] Nystatin 100,000 Unit/ml Susp [Mycostatin Oral Susp] 500,000 unit PO QID #60 cup 01/24/18 [Rx] predniSONE 10 mg PO DAILY #20 tab 01/24/18 [Rx] Follow up Appointment(s)/Referral(s): [facility], [NON-STAFF] - Nikki Soto MD [Primary Care Provider] - 1-2 days Tung Atkinson MD [STAFF PHYSICIAN] - 3 Weeks (pt already has appt date and time ) Patient Instructions/Handouts: Nosebleed (GEN), Eating During Cancer Treatment (DC), Preventing Infections (GEN), Acute Myeloid Leukemia (DC), Hemoptysis (GEN) , Self Care Measures With Cancer (DC), How To Wash Your Hands (DC), Neutropenia (DC), Mouth Care for the Cancer Patient (DC), Thrombocytopenia (DC), Chemo Induced Nausea and Vomiting (DC), Intravenous Chemotherapy (DC), Pancytopenia ( DC) Activity/Diet/Wound Care/Special Instructions: Hospital Bed/Home Oxygen - [facility] - [phone] Discharge Disposition: HOME WITH HOME HEALTH SERVICES
[2018-01-24 12:11] LABS: Glucose,Whole Blood 152 mg/dL (75-99)
[2018-01-24] MEDS: CYANOCOBALAMIN 500 MCG TAB PO SCH (12:54)
[2018-01-24] MEDS ORDERED: ONDANSETRON 4 MG TAB PO PRN (12:57)
--- NOTE | 2018-01-24 16:19 | P.PN ---
Subjective Progress Note Date: 01/24/18 Principal diagnosis: Leukemia She is Day #9 Induction of 7+3. She continues to be afebrile and no acute complaints. She is moving bowels daily. She has tolerated induction well. No complaints of N/V/D/C. Objective - Vital Signs Vital signs: Vital Signs Temp 98.3 F 01/24/18 04:49 Pulse 75 01/24/18 04:49 Resp 18 01/24/18 04:49 BP 117/75 01/24/18 04:49 Pulse Ox 96 01/24/18 04:49 Intake & Output 01/23/18 01/24/18 01/24/18 18:59 06:59 18:59 Intake Total 500 1680 Balance 500 1680 Weight 131 kg Intake: IV 800 Sodium Chloride 0.9% 1, 800 000 ml @ 100 mls/hr IV . Q10H STEPHEN Rx#:[id number] Intake, IV Titration 50 Amount Ondansetron 8 mg In 50 Sodium Chloride 0.9% 50 ml @ 100 mls/hr IVPB BID PRN Rx#:[id number] Oral 500 830 Other: Voiding Method Toilet Toilet # Voids 2 3 # Bowel Movements 1 ABP, PAP, CO, CI - Last Documented Arterial Blood Pressure 133/61 - Constitutional General appearance: Present: cooperative, no acute distress, obese - EENT Eyes: Present: EOMI, PERRLA, dentition normal ENT: Present: NA/AT, normal oropharynx - Neck Details: Supple trachea midline Neck: Present: normal ROM - Respiratory Respiratory: bilateral: CTA (No increased respiratory effort) - Cardiovascular Rhythm: regular Heart sounds: normal: S1, S2 - Gastrointestinal General gastrointestinal: Present: normal bowel sounds, soft - Integumentary Integumentary: Present: pale - Neurologic Neurologic Comment(s): No focal deficits Neurologic: Present: CNII-XII intact - Musculoskeletal Musculoskeletal: Present: gait normal, generalized weakness, strength equal bilaterally - Psychiatric Psychiatric: Present: A&O x's 3, appropriate affect, intact judgment & insight - Labs CBC & Chem 7: 01/24/18 06:45 01/24/18 06:45 Labs: Abnormal Lab Results - Last 24 Hours (Table) 01/23/18 01/23/18 01/24/18 Range/Units 17:33 20:32 06:45 WBC 0.6 L* (3.8-10.6) k/uL RBC 2.23 L (3.80-5.40) m/uL Hgb 7.3 L (11.4-16.0) gm/dL Hct 21.4 L (34.0-46.0) % Plt Count 19 L* (150-450) k/uL Chloride (98-107) mmol/L POC Glucose (mg/dL) 180 H 179 H (75-99) mg/dL Uric Acid (3.7-7.4) mg/dL Calcium (8.4-10.2) mg/dL AST (14-36) U/L Total Protein (6.3-8.2) g/dL Albumin (3.5-5.0) g/dL 01/24/18 Range/Units 06:45 WBC (3.8-10.6) k/uL RBC (3.80-5.40) m/uL Hgb (11.4-16.0) gm/dL Hct (34.0-46.0) % Plt Count (150-450) k/uL Chloride 108 H (98-107) mmol/L POC Glucose (mg/dL) (75-99) mg/dL Uric Acid 1.0 L (3.7-7.4) mg/dL Calcium 7.9 L (8.4-10.2) mg/dL AST 12 L (14-36) U/L Total Protein 5.6 L (6.3-8.2) g/dL Albumin 3.0 L (3.5-5.0) g/dL Assessment and Plan Plan: Assessment and Plan (1) Acute myeloid leukemia Narrative/Plan: The patient's pathology report has been discussed with the pathologist at [facility]. It was indicated that the diagnosis most likely was acute myeloid leukemia. The formal pathology report is now available. It confirms the presence of increased number of myeloid blasts. On flow cytometric, as well as cell count, the percentage of blasts is greater than 20%. This is compatible with acute myeloid leukemia. On CD34 staining, the percentage was in the 10% range. Significant increase in immature monocytes are also noted . The overall picture per the pathologist, was felt to definitely favor acute myeloid leukemia (though RAEB-2 was in the differential). The clinically, the patient's course has been quite aggressive, consistent with acute myeloid leukemia. Therefore discussed in detail with the patient her own, and then again later in the day with her and her family. They were advised that based on the clinical presentation and pathology, the patient appears to have acute myeloid leukemia and should be treated as such. She has had an echocardiogram done, which reveals essentially normal ejection fraction, as well as a PICC line placed. Current treatment recommendations for induction per NCCN guidelines were discussed in detail. The standard 7+3 regimen has been recommended, and was discussed in detail. We discussed prognosis with and without treatment. Side effects during and postchemotherapy were also discussed. They indicated that they're willing to proceed. The patient will be transferred to the floor oncology. Chemotherapy orders have been submitted to her pharmacy. I did contact pharmacy to start the regimen. The patient will be closely monitored with clinical exams, and labs including labsmfor tumor lysis, which have been ordered. She will be started on allopurinol. Elitek will be utilized if necessary - Day #9 if induction of 7 plus 3 induction chemotherapy and tolerating well, continue to monitor for s/s/ of infection, bleeding, tumor lysis, and mental status changes. - No Evidence of tumor lysis at this time Once her counts start to recover or up to day 14 (whichever first) she will be scheduled for a repeat Bone marrow to check for remission status. We will follow her CBC 2-3 x a week while her count recovers post induction as an outpatient and supportive infusions will be given. A follow-up in the office to see Dr. Atkinson has been made for 02/04. She will see FINISHING RANGE OPERATOR On Saturday in office to review CBC and Symptoms. CBC will be checked Saturday, Saturday and Saturday next week. Discussed discharge Prophylaxic medications with Dr. Amos. She will be discharged home on posyconazole (per ID) (instead of diflucan, agree with this) and acyclovir 400mg po BID and antibacterial (Levaquin) per ID with recent pneumonia. I also provided written script for prn zofran N/V Current Visit: Yes Status: Acute Code(s): C92.00 - ACUTE MYELOBLASTIC LEUKEMIA, NOT HAVING ACHIEVED REMISSION SNOMED Code(s): 23096361 (2) Pancytopenia Secondary to AML and Chemotherapy Narrative/Plan: - Continue daily cbc draws - Transfusion Support with Leuko-reduced irradiated products only for Hemoglobin less than 7, platlets less than 10 Hemoglobin 7.3 and Platelets 19 today, no transfusion needed - re-education on risks of infections, bleeding Shhe is aware. All questions answered and understanding stated. Current Visit: Yes Status: Acute Priority: High Code(s): D61.818 - OTHER PANCYTOPENIA SNOMED Code(s): 664196328 (3) Pneumonia Narrative/Plan: - The patient is much improved in terms of her respiratory status. Case was discussed with the admitting service and pulmonary medicine on 01/16/18. - Defer to the admitting service, ID and pulmonary medicine for continued treatment. Current Visit: Yes Status: Acute Code(s): J18.9 - PNEUMONIA, UNSPECIFIED ORGANISM SNOMED Code(s): 730901522 Time with Patient: Greater than 30
== END 2018-01-24 18:30 | disposition home health service (06) | DRG 853 ==
LOC: EC 19:36 → 4MS4W 22:11 → 6ICU 01-10 12:20 → 4MS4W 01-13 21:24 → 5ONC 01-16 21:07
PROVIDERS: ADMIT Internal Medicine; ATTEND Internal Medicine
PROC: 0B9D8ZX Drainage of Right Middle Lung Lobe, Via Natural or Artificial Opening Endoscopic, Diagnostic (ICD-10-PCS; 2018-01-10)
PROC: 0BD58ZX Extraction of Right Middle Lobe Bronchus, Via Natural or Artificial Opening Endoscopic, Diagnostic (ICD-10-PCS; 2018-01-10)
PROC: 0BD88ZX Extraction of Left Upper Lobe Bronchus, Via Natural or Artificial Opening Endoscopic, Diagnostic (ICD-10-PCS; 2018-01-10)
PROC: 07DR3ZX Extraction of Iliac Bone Marrow, Percutaneous Approach, Diagnostic (ICD-10-PCS; 2018-01-10)
PROC: 02H633Z Insertion of Infusion Device into Right Atrium, Percutaneous Approach (ICD-10-PCS; 2018-01-10)
PROC: 0BH18EZ Insertion of Endotracheal Airway into Trachea, Via Natural or Artificial Opening Endoscopic (ICD-10-PCS; 2018-01-10)
PROC: 5A1935Z Respiratory Ventilation, Less than 24 Consecutive Hours (ICD-10-PCS; 2018-01-10)
PROC: 0B9H8ZX Drainage of Lung Lingula, Via Natural or Artificial Opening Endoscopic, Diagnostic (ICD-10-PCS; principal; 2018-01-10 11:00)
PROC: 0B9G8ZX Drainage of Left Upper Lung Lobe, Via Natural or Artificial Opening Endoscopic, Diagnostic (ICD-10-PCS; 2018-01-10 11:00)
PROC: 5A09457 Assistance with Respiratory Ventilation, 24-96 Consecutive Hours, Continuous Positive Airway Pressure (ICD-10-PCS; 2018-01-11)
PROC: 0D9670Z Drainage of Stomach with Drainage Device, Via Natural or Artificial Opening (ICD-10-PCS; 2018-01-11)
PROC: XW043B3 Introduction of Cytarabine and Daunorubicin Liposome Antineoplastic into Central Vein, Percutaneous Approach, New Technology Group 3 (ICD-10-PCS; 2018-01-16)
DX: A41.9 Sepsis, unspecified organism (principal); J18.9 Pneumonia, unspecified organism; J96.01 Acute respiratory failure with hypoxia; E87.2 Acidosis; Z68.43 Body mass index [BMI] 50.0-59.9, adult; B37.0 Candidal stomatitis; C92.00 Acute myeloblastic leukemia, not having achieved remission; D70.1 Agranulocytosis secondary to cancer chemotherapy; E11.40 Type 2 diabetes mellitus with diabetic neuropathy, unspecified; E66.01 Morbid (severe) obesity due to excess calories; E11.65 Type 2 diabetes mellitus with hyperglycemia; I11.9 Hypertensive heart disease without heart failure; K76.0 Fatty (change of) liver, not elsewhere classified; T38.0X5A Adverse effect of glucocorticoids and synthetic analogues, initial encounter; J45.909 Unspecified asthma, uncomplicated; E78.5 Hyperlipidemia, unspecified; E03.9 Hypothyroidism, unspecified; E53.8 Deficiency of other specified B group vitamins; G89.29 Other chronic pain; M54.5 Low back pain; F32.9 Major depressive disorder, single episode, unspecified; F41.9 Anxiety disorder, unspecified; D50.9 Iron deficiency anemia, unspecified; T45.1X5A Adverse effect of antineoplastic and immunosuppressive drugs, initial encounter; R04.0 Epistaxis; G47.00 Insomnia, unspecified; R19.7 Diarrhea, unspecified; K21.9 Gastro-esophageal reflux disease without esophagitis; Y95 Nosocomial condition; Z79.82 Long term (current) use of aspirin; Z79.890 Hormone replacement therapy; Z79.51 Long term (current) use of inhaled steroids; Z79.899 Other long term (current) drug therapy; Z98.51 Tubal ligation status; Z98.42 Cataract extraction status, left eye; Z98.41 Cataract extraction status, right eye; Z96.1 Presence of intraocular lens; Z88.0 Allergy status to penicillin
CPT/HCPCS: 31624; 36415; 36569; 36600; 71045; 71046; 71260; 74177; 76937; 80048; 80053; 81003; 82164; 82550; 82553; 82805; 83036; 83605; 83735; 83880; 84100; 84484; 84550; 85025; 85610; 85730; 86001; 86255; 86606; 86609; 86738; 87040; 87070; 87086; 87102; 87116; 87205; 87206; 87252; 87305; 87449; 87496; 87498; 87502; 87529; 87541; 87581; 87634; 87798; 88108; 88305; 89050; 93005; 93306; 94002; 94003; 94640; 94660; 94760; 96365; 96366; 96375; 99285

== ENCOUNTER 2018-01-27 17:04 | Inpatient (IN) | payer OTHER ==
[2018-01-27] MEDS ORDERED: ONDANSETRON 4 MG/2 ML VIAL IVP STA (18:01)
--- NOTE | 2018-01-27 18:05 | ED ---
General Adult HPI - General Chief complaint: Recheck/Abnormal Lab/Rx Stated complaint: chemo pt/needs blood Time Seen by Provider: 01/27/18 17:41 Source: patient, family, RN notes reviewed Mode of arrival: wheelchair Limitations: no limitations - History of Present Illness Initial comments: Patient is a pleasant 53-year-old female presenting to the emergency Department with complaints of being told she needs a blood transfusion. Patient does have a known history of AML and just recently finished her first dose of chemotherapy. Patient states she feels fine at this time and does not have any specific complaints. Patient was at her doctor's office and was told she needed to come to the emergency department for blood. Patient denies any rectal bleeding or black tarry stools. - Related Data Home Medications Medication Instructions Recorded Confirmed Escitalopram Oxalate [Lexapro] 30 mg PO QAM 05/04/16 01/27/18 Ferrous Sulfate [Iron (65 MG 325 mg PO DAILY 05/04/16 01/27/18 Elemental)] Omeprazole [PriLOSEC] 20 mg PO AC-BID 05/04/16 01/27/18 Atorvastatin [Lipitor] 20 mg PO DAILY 10/26/16 01/27/18 Fluticasone Nasal [place] [Flonase 1 spray EA NOSTRIL DAILY 10/26/16 01/27/18 Nasal [place]] Loratadine [Claritin] 10 mg PO DAILY 10/26/16 01/27/18 Zolpidem [Ambien] 10 mg PO HS 10/26/16 01/27/18 Furosemide [Lasix] 20 mg PO BID 08/19/17 01/27/18 Gabapentin [Neurontin] 300 mg PO TID 08/19/17 01/27/18 Levothyroxine Sodium [Synthroid] 125 mcg PO DAILY 08/19/17 01/27/18 Potassium Chloride [Klor-Con 20] 20 meq PO BID 08/19/17 01/27/18 Calcium Carbonate/Vitamin D3 1 tab PO DAILY 10/08/17 01/27/18 [Calcium 600-Vit D3 400 Caplet] Metoprolol Tartrate [Lopressor] 50 mg PO BID 10/08/17 01/27/18 Montelukast [Singulair] 10 mg PO HS 10/08/17 01/27/18 Albuterol Inhaler [Ventolin Hfa 2 puff INHALATION RT-QID PRN 10/29/17 01/27/18 Inhaler] Budesonide/Formoterol Fumarate 2 puff INHALATION RT-BID 10/29/17 01/27/18 [Symbicort 160-4.5 Mcg Inhaler] Ipratropium-Albuterol Nebulize 3 ml INHALATION RT-QID PRN 10/29/17 01/27/18 [Duoneb 0.5 mg-3 mg/3 ml Soln] busPIRone HCl [Buspar] 5 mg PO BID 10/29/17 01/27/18 predniSONE See Taper PO DAILY 01/27/18 01/27/18 Previous Rx's Medication Instructions Recorded traMADol HCL [Ultram] 50 mg PO Q6HR PRN #1 tab 08/23/17 Cyanocobalamin (Vitamin B-12) 1,000 mcg PO DAILY 90 Days #90 01/08/18 [Vitamin B-12] tablet Acyclovir 400 mg PO BID #14 tablet 01/24/18 Fluconazole [Diflucan] 100 mg PO DAILY #7 tab 01/24/18 Levofloxacin [Levaquin] 500 mg PO DAILY #14 tab 01/24/18 Ondansetron [Zofran] 4 mg PO Q6HR PRN #45 tab 01/24/18 glipiZIDE [Glucotrol] 5 mg PO BID #60 tab 01/24/18 Allergies Allergy/AdvReac Type Severity Reaction Status Date / Time Penicillins Allergy Rash/Hives Verified 01/27/18 17:56 Review of Systems ROS Statement: Those systems with pertinent positive or pertinent negative responses have been documented in the HPI. ROS Other: All systems not noted in ROS Statement are negative. Constitutional: Denies: fever Eyes: Denies: eye pain ENT: Denies: ear pain Respiratory: Denies: cough Cardiovascular: Denies: chest pain Endocrine: Denies: fatigue Gastrointestinal: Denies: abdominal pain Genitourinary: Denies: dysuria Musculoskeletal: Denies: back pain Skin: Denies: pruritus Neurological: Denies: weakness Hematological/Lymphatic: Reports: easy bruising Past Medical History Past Medical History: Asthma, Cancer, Diabetes Mellitus, GERD/Reflux, Hyperlipidemia, Hypertension, Thyroid Disorder Additional Past Medical History / Comment(s): Chronic back pain, neuropathy L hand, L hand 2nd and 3rd fingers are "locking up" at times, carpal tunnel right hand, hypothyroid, iron deficiency anemia, insomnia, sinus problems; pt recently diagnosed with diverticulitis, leukemia History of Any Multi-Drug Resistant Organisms: None Reported Past Surgical History: Adenoidectomy, Heart Catheterization, Tonsillectomy, Tubal Ligation Additional Past Surgical History / Comment(s): carpel tunnel right wrist, bilateral cataract removal, bilateral laser eye surgery/lens implants, colonoscopy, epidural injections with last time being 1 week ago, PICC line Past Anesthesia/Blood Transfusion Reactions: No Reported Reaction Past Psychological History: Anxiety, Depression Smoking Status: Never smoker Past Alcohol Use History: None Reported Past Drug Use History: None Reported - Past Family History Mother Family Medical History: Cancer Father Family Medical History: No Reported History Additional Family Medical History / Comment(s): Father is living. General Exam Limitations: no limitations General appearance: alert, in no apparent distress Head exam: Present: atraumatic Eye exam: Present: normal appearance, PERRL ENT exam: Present: normal oropharynx Neck exam: Present: normal inspection Respiratory exam: Present: normal lung sounds bilaterally Cardiovascular Exam: Present: regular rate, normal rhythm GI/Abdominal exam: Present: soft. Absent: tenderness Extremities exam: Present: pedal edema (+1 bilaterally), other (Diffuse tenderness including the feet. Patient states this is chronic and believe she may have neuropathy.) Neurological exam: Present: alert Psychiatric exam: Present: normal affect, normal mood Skin exam: Present: other (Patient does have several ecchymotic areas mostly of her right arm) Course Vital Signs 01/27/18 01/27/18 17:11 18:13 Temperature 98.5 F Pulse Rate 80 73 Respiratory 20 16 Rate Blood Pressure 92/61 93/52 O2 Sat by Pulse 100 100 Oximetry Medical Decision Making - Medical Decision Making Patient reevaluated and resting comfortably in bed. Patient updated on results and plan. Case was discussed with Dr. Salcedo, who recommends 2 units irradiated blood and leukoreduced as well as platelets. Case also discussed with practitioner Sagar, who will admit for Dr. Sharma, covering for Dr. Tatum. - Lab Data Result diagrams: 01/27/18 18:06 01/27/18 18:06 Lab Results 01/27/18 01/27/18 01/27/18 Range/Units 18:06 18:06 18:06 WBC 0.1 L* (3.8-10.6) k/uL RBC 1.76 L (3.80-5.40) m/uL Hgb 5.7 L* D (11.4-16.0) gm/dL Hct 16.5 L* (34.0-46.0) % MCV 93.6 (80.0-100.0) fL MCH 32.3 (25.0-35.0) pg MCHC 34.5 (31.0-37.0) g/dL RDW 14.2 (11.5-15.5) % Plt Count 4 L* D (150-450) k/uL Differential Comment Manual Slide Review Performed PT 10.4 (9.0-12.0) sec INR 1.1 (<1.2) APTT 18.1 L (22.0-30.0) sec Sodium 136 L (137-145) mmol/L Potassium 4.8 (3.5-5.1) mmol/L Chloride 104 (98-107) mmol/L Carbon Dioxide 23 (22-30) mmol/L Anion Gap 9 mmol/L BUN 21 H (7-17) mg/dL Creatinine 1.00 (0.52-1.04) mg/dL Est GFR (CKD-EPI)AfAm 74 (>60 ml/min/1.73 sqM) Est GFR (CKD-EPI)NonAf 64 (>60 ml/min/1.73 sqM) Glucose 193 H (74-99) mg/dL Calcium 8.0 L (8.4-10.2) mg/dL Magnesium 1.3 L (1.6-2.3) mg/dL Total Bilirubin 1.0 (0.2-1.3) mg/dL AST 9 L (14-36) U/L ALT 21 (9-52) U/L Alkaline Phosphatase 51 (38-126) U/L Total Protein 5.6 L (6.3-8.2) g/dL Albumin 3.1 L (3.5-5.0) g/dL Disposition Clinical Impression: Pancytopenia, Acute myeloid leukemia Disposition: ADMITTED IP TO THIS HOSP Is patient prescribed a controlled substance at d/c from ED?: No Referrals: Nikki Soto MD [Primary Care Provider] - 1-2 days Decision Time: 19:59
[2018-01-27 18:32] LABS: INR 1.1 (<1.2); Prothrombin Time 10.4 sec (9.0-12.0)
[2018-01-27 18:33] LABS: MCH 32.3 pg (25.0-35.0); MCHC 34.5 g/dL (31.0-37.0); MCV 93.6 fL (80.0-100.0); Mean Platelet Volume 7.8; RBC 1.76 m/uL (3.80-5.40); RDW 14.2 % (11.5-15.5)
[2018-01-27 18:37] LABS: Albumin 3.1 g/dL (3.5-5.0); Magnesium 1.3 mg/dL (1.6-2.3); Partial Thromboplastin Time 18.1 sec (22.0-30.0); Potassium 4.8 mmol/L (3.5-5.1); Total Protein 5.6 g/dL (6.3-8.2)
[2018-01-27 18:50] LABS: HGB 5.7 gm/dL (11.4-16.0); WBC 0.1 k/uL (3.8-10.6)
[2018-01-27 18:51] LABS: HCT 16.5 % (34.0-46.0)
[2018-01-27 19:40] LABS: Platelet Count 4 k/uL (150-450)
[2018-01-27] MEDS ORDERED: NALOXONE 0.4 MG/ML 1 ML VIAL IV PRN (20:00)
[2018-01-27] MEDS ORDERED: MAGNESIUM SULFATE-D5W PMX 1 GM in DEXTROSE/WATER 1 100ML.BAG IVPB ONE (20:01)
[2018-01-27] MEDS: SODIUM CHLORIDE 0.9% 1,000 ML IV SCH (20:32)
[2018-01-27] MEDS ORDERED: ACETAMINOPHEN TAB 500 MG TAB PO STA (21:53)
[2018-01-27 22:08] LABS: Appearance,Urine Clear (Clear); Bilirubin,Urine Negative (Negative); Blood,Urine Trace (Negative); Color,Urine Light Yellow; Glucose,Urine (UA) 1+ (Negative); Ketones,Urine Negative (Negative); Leukocyte Esterase,Urine Negative (Negative); Mucus,Urine Rare /hpf; Nitrite,Urine Negative (Negative); PH, Urine 6.5 (5.0-8.0); Protein,Urine Trace (Negative); RBC,Urine <1 /hpf (0-5); Specific Gravity,Urine 1.009 (1.001-1.035); Squamous Epithelial Cell,Urine 1 /hpf (0-4); Urobilinogen,Urine <2.0 mg/dL (<2.0); WBC,Urine 1 /hpf (0-5)
--- NOTE | 2018-01-27 23:11 | XR ---
EXAMINATION TYPE: XR chest 2V DATE OF EXAM: 01/27/2018 COMPARISON: 01/16/2018 HISTORY: Fever TECHNIQUE: Frontal and lateral views of the chest are obtained. FINDINGS: Heart is enlarged. There is some pulmonary interstitial edema. There is no pleural effusio n. There is left central venous catheter with tip in the superior vena cava. IMPRESSION: There is partial clearing of pulmonary interstitial edema compared to last exam. Resolvi ng congestive heart failure is possible.
[2018-01-28] MEDS ORDERED: traMADol 50 MG TAB PO PRN (00:15)
[2018-01-28] MEDS ORDERED: ALBUTEROL NEBULIZED 2.5 MG/3 ML INHALATION PRN (00:15)
[2018-01-28] MEDS ORDERED: IPRATROPIUM-ALBUTEROL 3 ML NEB INHALATION PRN (00:15)
[2018-01-28] MEDS ORDERED: VANCOMYCIN IV PER PHARMACY 1 EACH MISC MISCELLANE PRN (00:18)
[2018-01-28] MEDS: ZOLPIDEM 10 MG TAB PO SCH (00:38)
[2018-01-28 00:44] LABS: Glucose,Whole Blood 146 mg/dL (75-99)
[2018-01-28] MEDS: PANTOPRAZOLE 40 MG/10 ML VIAL IVP SCH ×3 (01:09→21:26)
[2018-01-28] MEDS: MAGNESIUM OXIDE 400 MG TAB PO SCH ×3 (01:09→21:25)
[2018-01-28] MEDS: CEFEPIME 2 GM in SODIUM CHLORIDE 0.9% 50 ML IVPB SCH ×3 (01:22→21:22)
[2018-01-28] MEDS: VANCOMYCIN 2,000 MG in SODIUM CHLORIDE 0.9% 500 ML IVPB SCH (02:05)
--- NOTE | 2018-01-28 02:08 | HP ---
HISTORY AND PHYSICAL DATE OF SERVICE: 01/27/2018. CHIEF COMPLAINT: Weakness, body aches, vomiting, and fever. HISTORY OF PRESENT ILLNESS: This 53-year-old woman with a past medical history of multiple medical problems was admitted recently for chemotherapy for acute myeloid leukemia. Patient also had possible pneumonia and multiple other medical problems. The patient follows with Dr. Soto in the outpatient setting. The patient also had chronic bronchial asthma, hypertension, diabetes type 2, GERD, and hypothyroidism as well. At home, the patient was feeling sicker, tired, and after that and was also complaining of vomiting and fever. The patient came to [facility] and was admitted for further evaluation and treatment. Patient had severe neutropenia with anemia, leukopenia, and thrombocytopenia with pancytopenia. WBC 0.1, hemoglobin is 5.7, platelets 4. RBC and platelet transfusion arranged. Admission was arranged for further evaluation and treatment. There is no history of fever, rigors. No headache, loss of consciousness, seizures. PAST MEDICAL HISTORY: History of recent AML with chemotherapy, history of bronchial asthma, diabetes, GERD, hypertension, hypertension, hypothyroidism, cardiac catheterization. MEDICATIONS: Prior to admission include home medications are: 1. Ultram 50 mg every 6 p.r.n. 2. Prednisone 10 mg daily. 3. Glucotrol 5 mg p.o. b.i.d. 4. BuSpar 5 mg p.o. b.i.d. 5. Ambien 10 mg at bedtime. 6. Klor-Con 20 mg p.o. b.i.d. 7. Zofran 4 mg every 6 hours p.r.n. 8. Prilosec 20 mg with meals b.i.d. 9. Singular 10 mg at bedtime. 10.Lopressor 50 mg p.o. b.i.d. 11.Claritin 10 mg p.o. daily. 12.Synthroid 125 mcg p.o. daily. 13.Levaquin 500 mg p.o. daily. 14.DuoNeb q.i.d. p.r.n. 15.Neurontin 300 mg p.o. t.i.d. 16.Lasix 20 mg p.o. b.i.d. 17.Flonase 1 spray daily. 18.Diflucan 100 mg p.o. daily. 19.Iron 320 mg p.o. daily. 20.Lexapro 30 mg q.i.d. 21.B12, 1000 mcg. 22.Calcium with vitamin D 1 p.o. daily. 23.Symbicort 160/4.5 two puffs b.i.d. 24.Lipitor 20 mg p.o. 25.Ventolin 2.5 q.i.d. p.r.n. ALLERGIES: PENICILLIN. FAMILY HISTORY: History of cancer in the family. SOCIAL HISTORY: History of smoking. No history of alcohol intake. REVIEW OF SYSTEMS: ENT: No diminished hearing or diminished vision. CARDIOVASCULAR: No angina. RESPIRATORY: As mentioned earlier. GI: No nausea. : No dysuria. ALLERGY: No asthma or hayfever. MUSCULOSKELETAL: As mentioned earlier. HEMATOLOGY: As mentioned. ENDOCRINE: As mentioned. CONSTITUTIONAL: As mentioned. NEUROLOGY: As mentioned. PSYCHIATRY: As mentioned. PHYSICAL EXAM: The patient is alert x3. Pulse 77, blood pressure 98/50, respiration 18, temperature 98 degrees, pulse ox 100% on 2 L. T-max 100.6. HEENT: Conjunctivae pale. Oral mucosa pale. NECK: No jugular venous distention. No lymph node enlargement. CARDIOVASCULAR: S1 and S2. LUNGS: Breath sounds diminished in the bases. Few scattered rhonchi. No crackles. ABDOMEN: Soft, nontender. No guarding. No rigidity. No mass palpable. EXTREMITIES: Bilateral leg edema. NERVOUS SYSTEM: Higher functions as mentioned earlier. Moves all 4 limbs. No focal motor or sensory deficits. LYMPHATICS: No lymph nodes palpable in the neck or axillae. SKIN: Diffuse petechiae present in the legs as well as joints. No active deforming arthropathy. LYMPHATICS: No lymph nodes palpable in the neck, axillae or groin. ASSESSMENT: 1. Severe pancytopenia as well as neutropenic fever. 2. Status post chemotherapy for acute myeloid leukemia. 3. Possible acute gastritis. 4. History of bronchial asthma. 5. History of recent sepsis. 6. Hypertension. 7. Chronic hypoxic respiratory failure. 8. Hyperlipidemia. 9. Diabetes type 2. 10.Obesity. 11.Gastroesophageal reflux disease. 12.Chronic low back pain. 13.Hypothyroidism. 14.Anxiety and depression. RECOMMENDATIONS: In this 53-year-old woman who presented with multiple complex medical issues, we will monitor the patient closely, continue the current management and symptomatic treatment. I recommend broad-spectrum IV antibiotics. Obtain cultures. Platelets and transfusions of red cells. Hematology/Oncology as well as Infectious Disease consultations. Resume the home medications. Prognosis is guarded because of multiple complex medical issues. Further recommendations to follow. MMODL / IJN: [id number] / MTDD
[2018-01-28] MEDS ORDERED: ACETAMINOPHEN TAB 325 MG TAB PO PRN (06:24)
[2018-01-28] MEDS: LEVOTHYROXINE 125 MCG TAB PO SCH (06:33)
[2018-01-28 07:00] LABS: Glucose,Whole Blood 135 mg/dL (75-99)
[2018-01-28] MEDS: SYMBICORT 160-4.5 MCG INHALER INHALATION SCH ×2 (07:20→19:50)
[2018-01-28] MEDS: ONDANSETRON 4 MG/2 ML VIAL IVP PRN ×2 (07:30→17:43)
[2018-01-28 08:05] LABS: HCT 21.5 % (34.0-46.0); HGB 7.1 gm/dL (11.4-16.0); MCH 30.3 pg (25.0-35.0); MCV 91.8 fL (80.0-100.0); Mean Platelet Volume 9.6; RBC 2.35 m/uL (3.80-5.40); RDW 14.5 % (11.5-15.5)
[2018-01-28 08:24] LABS: WBC 0.1 k/uL (3.8-10.6)
[2018-01-28 08:25] LABS: Platelet Count 9 k/uL (150-450)
[2018-01-28] MEDS: ATORVASTATIN 20 MG TAB PO SCH (08:44)
[2018-01-28] MEDS: ACYCLOVIR 200 MG CAP PO SCH ×2 (08:44→21:24)
[2018-01-28] MEDS: FLUTICASONE 50MCG/SPRAY NASAL 16GM EA NOSTRIL SCH (08:44)
[2018-01-28] MEDS: FLUCONAZOLE 100 MG TAB PO SCH (08:44)
[2018-01-28] MEDS: ESCITALOPRAM 10 MG TAB PO SCH (08:44)
[2018-01-28] MEDS: busPIRone HCl 5 MG TAB PO SCH ×2 (08:44→21:24)
[2018-01-28] MEDS: CYANOCOBALAMIN 500 MCG TAB PO SCH (08:44)
[2018-01-28] MEDS: GABAPENTIN 300 MG CAP PO SCH ×2 (08:45→17:40)
[2018-01-28] MEDS: glipiZIDE 5 MG TAB PO SCH ×2 (08:45→21:25)
[2018-01-28] MEDS: FUROSEMIDE 20 MG TAB PO SCH ×2 (08:45→21:25)
[2018-01-28] MEDS: LORATADINE 10 MG TAB PO SCH (08:45)
[2018-01-28] MEDS: METOPROLOL TARTRATE 50 MG TAB PO SCH ×2 (08:45→21:26)
[2018-01-28] MEDS: predniSONE 10 MG TAB PO SCH (08:46)
[2018-01-28] MEDS: POTASSIUM CHLORIDE ER 20 MEQ TAB.ER PO SCH ×2 (08:46→21:26)
[2018-01-28] MEDS ORDERED: PANTOPRAZOLE 40 MG/10 ML VIAL IV SCH (09:00)
[2018-01-28 09:52] VITALS: BMI 47.2
[2018-01-28 09:53] LABS: Poikilocytosis (M) Present
[2018-01-28] MEDS: MAGNESIUM SULFATE-D5W PMX 1 GM in DEXTROSE/WATER 1 100ML.BAG IVPB SCH ×2 (11:06→13:08)
[2018-01-28 11:43] LABS: Glucose,Whole Blood 173 mg/dL (75-99)
--- NOTE | 2018-01-28 13:18 | PN ---
PROGRESS NOTE DATE OF SERVICE: 01/28/2018 This 53-year-old woman who was admitted with weakness, body aches and fever and possibly neutropenic sepsis. The patient also had severe pancytopenia secondary to chemotherapy. No chest pain or palpitation. The patient is on broad-spectrum IV antibiotics. Multiple consultants are following the patient closely. The patient also received transfusions and platelet transfusion also. Platelets are at 9 today. The patient also has some diffuse PAST MEDICAL HISTORY: Reviewed. REVIEW OF SYSTEMS: CARDIOVASCULAR SYSTEM: No angina. RESPIRATORY SYSTEM: As mentioned earlier. GI: As mentioned earlier. : No dysuria. NERVOUS SYSTEM: No numbness. Generalized weakness. MEDICATIONS: Current medications are reviewed and include: 1. Tylenol 650 q.4 p.r.n. 2. Zovirax 400 mg p.o. b.i.d. 3. Ventolin 2.5 q.i.d. 4. DuoNeb q.i.d. and p.r.n. 5. Lipitor 20 mg daily. 6. Symbicort 160/4.5 two puffs b.i.d. 7. BuSpar 5 mg b.i.d. 8. Cefepime 2 grams IV b.i.d. 9. Vitamin B12, 1000 daily. 10.Lexapro 30 mg at bedtime. 11.Diflucan 100 mg daily. 12.Flonase daily. 13.Lasix 20 mg b.i.d. 14.Neurontin 300 mg b.i.d. 15.Glucotrol 5 mg b.i.d. 16.Synthroid 125 mcg p.o. daily. 17.Claritin 10 mg daily. 18.Magnesium oxide. 19.Singular 10 mg at bedtime. 20.Narcan. 21.Zofran. 22.Protonix 40 mg b.i.d. 23.Prednisone 10 mg p.o. daily. 24.Ultram 50 mg q.6. 25.Vancomycin. 26.Ambien. PHYSICAL EXAMINATION: The patient is alert, oriented x3. Pulse 94, blood pressure 115/61, respiration 15, temperature 98.7, pulse ox 97% on 2 L. HEENT: Conjunctivae normal. Oral mucosa moist. NECK: No jugular venous distention. No carotid bruit. No lymph node enlargement. CARDIOVASCULAR: S1 and S2 muffled. RESPIRATORY: Breath sounds are diminished at the bases. A few scattered rhonchi. ABDOMEN: Soft, nontender. No mass palpable. LEGS: No edema, no swelling. NERVOUS SYSTEM: Higher functions as mentioned earlier. Moves all 4 limbs. No focal motor or sensory deficits. LYMPHATICS: No lymphadenopathy of the neck, axillae or groin. SKIN: No ulcer, rash or bleeding. LABS: WBC 0.1, hemoglobin 7.1, platelets are 9. Glucose 173. ASSESSMENT: 1. Severe pancytopenia as well as neutropenic fever and sepsis, present on admission. 2. Status post chemotherapy for acute myeloid leukemia. 3. Possible acute gastritis. 4. History of bronchial asthma. 5. History of recent sepsis. 6. Hypertension. 7. Chronic hypoxic respiratory failure on home O2. 8. Hyperlipidemia. 9. Diabetes mellitus type 2. 10.Obesity. 11.Gastroesophageal reflux disease. 12.Chronic low back pain. 13.Hypothyroidism. 14.Anxiety, depression. RECOMMENDATIONS AND DISCUSSION: Recommend to continue current medications. Continue with monitoring and symptomatic treatment. Otherwise at this time, will monitor the patient closely. Otherwise , continue the broad-spectrum IV antibiotics. Continue the rest of the medications. Guarded prognosis. Further recommendations to follow. MMODL / IJN: [id number] / MITA
[2018-01-28 17:09] LABS: Glucose,Whole Blood 168 mg/dL (75-99)
[2018-01-28 20:22] LABS: Glucose,Whole Blood 123 mg/dL (75-99)
[2018-01-28] MEDS: MONTELUKAST 10 MG TAB PO SCH (21:26)
--- NOTE | 2018-01-28 22:01 | P.CONS ---
History of Present Illness - Reason for Consult Consult date: 01/28/18 Chemotherapy-induced pancytopenia, febrile neutropenia, AML - History of Present Illness Mrs. Brunner is a 53 yr old female recently referred to Dr. Atkinson because of leukopenia found during routine blood work. 11/14/17 CBC revealed total wbc of 2.8K,mild neutropenia, MCV 103.2, hemoglobin 12.1, platelets 289K, CMP unremarkable, normal thyroid function, normal serum folate, B12 was low normal 236, her peripheral smear at that time did not reveal any suspicious morphology. in July of 2017 she had mild anemia, normal WBC, all previous CBCs reviewed were unremarkable. She had a CT AP 10/29/17 due to abdominal pain which revealed fatty liver and evidence of diverticulitis. Patient was admitted with pneumonia and sepsis last month. During that admission it was noted that her WBC was was increased, with markedly abnormal differential showing significant blasts. The patient therefore underwent a bone marrow aspiration biopsy that was indicative of acute myeloid leukemia. She underwent induction chemotherapy with the 7+3 regimen, which she tolerated well. She was then discharged home on 01/25/18, on Levaquin, posaconazole, and acyclovir. The patient stated that she had been nauseated with intermittent vomiting at home, with low oral intake. She came into the office yesterday, for a blood draw and was found to have severe pancytopenia, with platelets of 6, and hemoglobin in the 5 range. She was also feeling quite weak. She was sent in to the emergency room and was admitted for further management. She has received 2 units of packed RBCs and 1 unit of platelets. She also spiked a temperature with T-max 100.6, as well as a temperature of 100.4 this morning. Review of Systems Constitutional: Reports fatigue, Reports fever, Reports poor appetite, Reports weakness Eyes: denies blurred vision, denies pain Ears: deny: decreased hearing, ear discharge, earache, tinnitus Ears, nose, mouth and throat: Denies headache, Denies sore throat Cardiovascular: Reports decreased exercise tolerance Respiratory: Reports as per HPI Gastrointestinal: Reports loss of appetite, Reports nausea, Reports vomiting Genitourinary: Denies dysuria, Denies hematuria Menstruation: Reports postmenopausal Musculoskeletal: Reports muscle weakness Integumentary: Denies pruritus, Denies rash Neurological: Reports weakness, Denies numbness Psychiatric: Reports anxiety Endocrine: Reports fatigue Hematologic/Lymphatic: Reports as per HPI Past Medical History Past Medical History: Asthma, Cancer, Diabetes Mellitus, GERD/Reflux, Hyperlipidemia, Hypertension, Thyroid Disorder Additional Past Medical History / Comment(s): cancer(aml- had chemo last saturday.pt stated she is very weak not able to ambulate without assist of 2. Chronic back pain, neuropathy L hand, L hand 2nd and 3rd fingers are "locking up " at times, carpal tunnel right hand, hypothyroid, iron deficiency anemia, insomnia, sinus problems; pt recently diagnosed with diverticulitis, leukemia History of Any Multi-Drug Resistant Organisms: None Reported Past Surgical History: Adenoidectomy, Heart Catheterization, Tonsillectomy, Tubal Ligation Additional Past Surgical History / Comment(s): carpel tunnel right wrist, bilateral cataract removal, bilateral laser eye surgery/lens implants, colonoscopy, epidural injections with last time being 1 week ago, PICC line, bronchoscopy, bome marrow bx. Past Anesthesia/Blood Transfusion Reactions: No Reported Reaction Smoking Status: Never smoker - Past Family History Mother Family Medical History: Cancer Father Family Medical History: No Reported History Additional Family Medical History / Comment(s): Father is living. Medications and Allergies Home Medications Medication Instructions Recorded Confirmed Type Escitalopram Oxalate [Lexapro] 30 mg PO QAM 05/04/16 01/27/18 History Ferrous Sulfate [Iron (65 MG 325 mg PO DAILY 05/04/16 01/27/18 History Elemental)] Omeprazole [PriLOSEC] 20 mg PO AC-BID 05/04/16 01/27/18 History Atorvastatin [Lipitor] 20 mg PO DAILY 10/26/16 01/27/18 History Fluticasone Nasal [place] [Flonase 1 spray EA NOSTRIL DAILY 10/26/16 01/27/18 History Nasal [place]] Loratadine [Claritin] 10 mg PO DAILY 10/26/16 01/27/18 History Zolpidem [Ambien] 10 mg PO HS 10/26/16 01/27/18 History Furosemide [Lasix] 20 mg PO BID 08/19/17 01/27/18 History Gabapentin [Neurontin] 300 mg PO TID 08/19/17 01/27/18 History Levothyroxine Sodium [Synthroid] 125 mcg PO DAILY 08/19/17 01/27/18 History Potassium Chloride [Klor-Con 20] 20 meq PO BID 08/19/17 01/27/18 History traMADol HCL [Ultram] 50 mg PO Q6HR PRN #1 tab 08/23/17 01/27/18 Rx Calcium Carbonate/Vitamin D3 1 tab PO DAILY 10/08/17 01/27/18 History [Calcium 600-Vit D3 400 Caplet] Metoprolol Tartrate [Lopressor] 50 mg PO BID 10/08/17 01/27/18 History Montelukast [Singulair] 10 mg PO HS 10/08/17 01/27/18 History Albuterol Inhaler [Ventolin Hfa 2 puff INHALATION RT-QID PRN 10/29/17 01/27/18 History Inhaler] Budesonide/Formoterol Fumarate 2 puff INHALATION RT-BID 10/29/17 01/27/18 History [Symbicort 160-4.5 Mcg Inhaler] Ipratropium-Albuterol Nebulize 3 ml INHALATION RT-QID PRN 10/29/17 01/27/18 History [Duoneb 0.5 mg-3 mg/3 ml Soln] busPIRone HCl [Buspar] 5 mg PO BID 10/29/17 01/27/18 History Cyanocobalamin (Vitamin B-12) 1,000 mcg PO DAILY 90 Days #90 01/08/18 01/27/18 Rx [Vitamin B-12] tablet Acyclovir 400 mg PO BID #14 tablet 01/24/18 01/27/18 Rx Fluconazole [Diflucan] 100 mg PO DAILY #7 tab 01/24/18 01/27/18 Rx Levofloxacin [Levaquin] 500 mg PO DAILY #14 tab 01/24/18 01/27/18 Rx Ondansetron [Zofran] 4 mg PO Q6HR PRN #45 tab 01/24/18 01/27/18 Rx glipiZIDE [Glucotrol] 5 mg PO BID #60 tab 01/24/18 01/27/18 Rx predniSONE See Taper PO DAILY 01/27/18 01/27/18 History Allergies Allergy/AdvReac Type Severity Reaction Status Date / Time Penicillins Allergy Rash/Hives Verified 01/27/18 17:56 Physical Exam Vitals: Vital Signs Temp Pulse Pulse Resp BP BP Pulse Ox 01/28/18 08:22 98.7 F 94 15 115/61 97 01/28/18 07:23 97 01/28/18 06:19 100.4 F H 90 18 115/64 99 01/28/18 04:25 99.1 F 89 18 101/63 100 01/28/18 03:55 98.8 F 80 18 119/75 100 01/28/18 03:45 98.7 F 74 18 106/57 99 01/28/18 03:26 98.6 F 77 18 105/58 99 01/28/18 02:57 98.6 F 76 18 107/62 100 01/28/18 02:27 97.5 F L 80 18 102/59 99 01/28/18 02:17 97.9 F 79 18 101/56 100 01/28/18 02:04 98.1 F 78 18 99/49 98 01/27/18 23:58 98 F 77 18 98/52 100 01/27/18 23:40 98 F 77 18 98/50 100 01/27/18 23:16 99.9 F H 79 17 96/51 01/27/18 23:10 100.6 F H 86 18 96/57 01/27/18 23:00 100.3 F H 81 16 102/57 01/27/18 22:39 100.4 F H 01/27/18 22:38 79 103/50 100 01/27/18 21:47 100.4 F H 79 17 106/52 100 01/27/18 21:10 80 16 117/51 100 01/27/18 18:13 73 16 93/52 100 01/27/18 17:11 98.5 F 80 20 92/61 100 Intake and Output 01/27/18 01/28/18 01/28/18 22:59 06:59 14:59 Intake Total 1012 Balance 1012 Intake: Oral 200 Blood Product 812 Platelet Irr Pheresis 2 192 Acda Unit [id number] Rc Irr As1 Unit 310 [id number] Rc Irr As3 Unit 310 [id number] Other: Voiding Method Toilet Bedside Commode # Voids 1 Weight 130.635 kg Results CBC & Chem 7: 01/28/18 07:42 01/27/18 18:06 Labs: Abnormal Lab Results - Last 24 Hours (Table) 08/06/18 08/06/18 08/06/18 Range/Units 16:30 18:06 18:06 WBC 0.1 L* (3.8-10.6) k/uL RBC 1.76 L (3.80-5.40) m/uL Hgb 5.7 L* D (11.4-16.0) gm/dL Hct 16.5 L* (34.0-46.0) % Plt Count 4 L* D (150-450) k/uL APTT (22.0-30.0) sec Sodium 136 L (137-145) mmol/L BUN 21 H (7-17) mg/dL Glucose 193 H (74-99) mg/dL POC Glucose (mg/dL) (75-99) mg/dL Calcium 8.0 L (8.4-10.2) mg/dL Magnesium 1.3 L (1.6-2.3) mg/dL AST 9 L (14-36) U/L Total Protein 5.6 L (6.3-8.2) g/dL Albumin 3.1 L (3.5-5.0) g/dL Urine Protein (Negative) Urine Glucose (UA) (Negative) Urine Blood (Negative) Urine Mucus (None) /hpf Crossmatch See Detail 01/27/18 01/27/18 01/28/18 Range/Units 18:06 21:57 00:43 WBC (3.8-10.6) k/uL RBC (3.80-5.40) m/uL Hgb (11.4-16.0) gm/dL Hct (34.0-46.0) % Plt Count (150-450) k/uL APTT 18.1 L (22.0-30.0) sec Sodium (137-145) mmol/L BUN (7-17) mg/dL Glucose (74-99) mg/dL POC Glucose (mg/dL) 146 H (75-99) mg/dL Calcium (8.4-10.2) mg/dL Magnesium (1.6-2.3) mg/dL AST (14-36) U/L Total Protein (6.3-8.2) g/dL Albumin (3.5-5.0) g/dL Urine Protein Trace H (Negative) Urine Glucose (UA) 1+ H (Negative) Urine Blood Trace H (Negative) Urine Mucus Rare H (None) /hpf Crossmatch 01/28/18 01/28/18 01/28/18 Range/Units 06:59 07:42 07:42 WBC 0.1 L* (3.8-10.6) k/uL RBC 2.35 L (3.80-5.40) m/uL Hgb 7.1 L (11.4-16.0) gm/dL Hct 21.5 L (34.0-46.0) % Plt Count 9 L* D (150-450) k/uL APTT (22.0-30.0) sec Sodium (137-145) mmol/L BUN (7-17) mg/dL Glucose (74-99) mg/dL POC Glucose (mg/dL) 135 H (75-99) mg/dL Calcium (8.4-10.2) mg/dL Magnesium 1.3 L (1.6-2.3) mg/dL AST (14-36) U/L Total Protein (6.3-8.2) g/dL Albumin (3.5-5.0) g/dL Urine Protein (Negative) Urine Glucose (UA) (Negative) Urine Blood (Negative) Urine Mucus (None) /hpf Crossmatch Chest x-ray: report reviewed Assessment and Plan (1) Febrile neutropenia Narrative/Plan: the pt is presenting with low grade fever. She has neutropenia related to her chemo. There are no localizing s/s for infection. The fever may be related to transfusion. Given her risk factors, it is appropriate to cover her with broad spectrum antibiotics, and check cultures. IF fever resolves and cultures stay negative, she can potentially be placed back on oral antibiotics and then discharged. Agree with Vanco and Cefepime. Continue Acyclovir. Switch Diflucan back to Posiconazole as she was placed on the same at her previous discharge. Agree with ID consult. Arthur discuss with them. Monitor closely on antibiotics. Current Visit: Yes Status: Acute Code(s): D70.9 - NEUTROPENIA, UNSPECIFIED; R50.81 - FEVER PRESENTING WITH CONDITIONS CLASSIFIED ELSEWHERE SNOMED Code(s) : 793549845 (2) Pancytopenia Narrative/Plan: e to chemotherapy. Pt has received 2 U PRBC and 1 U plt. Hgb was 7.1, and plt 9 post transfusion. There is no evidence of bleeding. Transfuse an additional U of plt. Continue to monitor and transfuse to keep hgb > 7, and plt > 10 unless actively bleeding. Current Visit: Yes Status: Acute Priority: High Code(s): D61.818 - OTHER PANCYTOPENIA SNOMED Code(s): 933235035 (3) Acute myeloid leukemia Narrative/Plan: S/P induction chemotherapy. Continue supportive care till counts recover. Current Visit: Yes Status: Acute Code(s): C92.00 - ACUTE MYELOBLASTIC LEUKEMIA, NOT HAVING ACHIEVED REMISSION SNOMED Code(s): 36503004
--- NOTE | 2018-01-28 23:09 | P.CONS ---
History of Present Illness - Reason for Consult Consult date: 01/28/18 - History of Present Illness This is a 53-year-old female patient known to ID service as she was seen during her hospitalization in July of this year. At that time she was treated for acute asthma exacerbation complicated by influenza B tracheobronchitis. ID was consulted regarding a cellulitis of the lower extremities. Patient was discharged home on Keflex. Regarding her legs, patient states that they occasionally get red but not a significant problem at this time. Patient states that she has had for about the last month difficulty with ambulating very far and early fatigue and shortness of breath. She states she has been sick for about one week or more with fever and worsening shortness of breath along with cough. She came into [facility] emergency center and on CAT scan of the chest done on 01/06 showed new extensive bilateral pulmonary airspace infiltrate consistent with acute asthma. Increased hair a tracheal adenopathy. She was originally treated with Levaquin and has been switched over to meropenem by Dr. Rubalcava. Patient is also been febrile with pancytopenia. Mycoplasma pneumoniae IgM was normal and Legionella antigen was not detected. eventually flow cytometry revealed evidence of blasts, bone marrow aspiration was performed and confirmed the acute myelogenous leukemia. The patient has been treated with the 7+3 protocol and did modestly well. she now presents with nausea emesis weakness and dehydration. Also with significant pancytopenia and fever, with her febrile neutropenia the infectious diseases consultation was requested Review of Systems patient feels very poorly HEENT:Denies headache or acute visual change. does have some mouth tenderness without ulcers Denies neck stiffness or pain. Denies significant oral cavity pain. Denies difficulty on swallowing. Lungs: Denies significant shortness of breath, cough, sputum production, or hemoptysis. Cardiovascular: Denies significant shortness of breath, chest pain, chest wall pain, orthopnea, dyspnea on exertion, syncope Gastrointestinal:Denies nausea, vomiting, diarrhea, constipation, hematemesis, melena, hematochezia. No no significant change of bowel habit noticed. Musculoskeletal: denies significant myalgias or arthralgias. No new joint swelling. Denies new back pain. Skin: Denies new rash or lesions. No new ulcers or wounds are related.. Neuro: Denies headache or visual change. Denies any new onset weakness or difficulty with ambulation. Denies falls or seizures. Psychiatric:Denies anxiety or depression. Endocrine: fatigue and weight loss continues, Past Medical History Past Medical History: Asthma, Cancer, Diabetes Mellitus, GERD/Reflux, Hyperlipidemia, Hypertension, Thyroid Disorder Additional Past Medical History / Comment(s): cancer(aml- had chemo last saturday.pt stated she is very weak not able to ambulate without assist of 2. Chronic back pain, neuropathy L hand, L hand 2nd and 3rd fingers are "locking up " at times, carpal tunnel right hand, hypothyroid, iron deficiency anemia, insomnia, sinus problems; pt recently diagnosed with diverticulitis, leukemia History of Any Multi-Drug Resistant Organisms: None Reported Past Surgical History: Adenoidectomy, Heart Catheterization, Tonsillectomy, Tubal Ligation Additional Past Surgical History / Comment(s): carpel tunnel right wrist, bilateral cataract removal, bilateral laser eye surgery/lens implants, colonoscopy, epidural injections with last time being 1 week ago, PICC line, bronchoscopy, bome marrow bx. Past Anesthesia/Blood Transfusion Reactions: No Reported Reaction Additional Psychological History / Comment(s): Pt states her anxiety and depression are managed with her medications. She lives alone and is independent. No experience. No international travel. Pet dogs in the home cared for by significant other. Is not a current tobacco smoker or significant alcohol user. Smoking Status: Never smoker Smoking Status: Never smoker - Past Family History Mother Family Medical History: Cancer Father Family Medical History: No Reported History Additional Family Medical History / Comment(s): Father is living. Medications and Allergies Home Medications and Allergies Comment(s): Current Medications Acetaminophen (Tylenol Tab) 650 mg PO Q4HR PRN PRN Reason: Fever and/ or Pain Last Admin: 01/28/18 06:34 Dose: 650 mg Acyclovir (Zovirax) 400 mg PO BID [facility] Last Admin: 01/28/18 21:24 Dose: 400 mg Albuterol Sulfate (Ventolin Nebulized) 2.5 mg INHALATION RT-QID PRN PRN Reason: Shortness Of Breath Albuterol/Ipratropium (Duoneb 0.5 Mg-3 Mg/3 Ml Soln) 3 ml INHALATION RT-QID PRN PRN Reason: Shortness Of Breath Atorvastatin Calcium (Lipitor) 20 mg PO DAILY [facility] Last Admin: 01/28/18 08:44 Dose: 20 mg Budesonide/Formoterol Fumarate (Symbicort 160-4.5 Mcg Inhaler) 2 puff INHALATION RT-BID [facility] Last Admin: 01/28/18 19:50 Dose: 2 puff Buspirone HCl (Buspar) 5 mg PO BID [facility] Last Admin: 01/28/18 21:24 Dose: 5 mg Cyanocobalamin (Vitamin B-12) 1,000 mcg PO DAILY [facility] Last Admin: 01/28/18 08:44 Dose: 1,000 mcg Escitalopram Oxalate (Lexapro) 30 mg PO QAM [facility] Last Admin: 01/28/18 08:44 Dose: 30 mg Fluconazole (Diflucan) 100 mg PO DAILY [facility] Last Admin: 01/28/18 08:44 Dose: 100 mg Fluticasone Propionate (Flonase Nasal [place]) 1 spray EA NOSTRIL DAILY [facility] Last Admin: 01/28/18 08:44 Dose: 1 spray Furosemide (Lasix) 20 mg PO BID [facility] Last Admin: 01/28/18 21:25 Dose: 20 mg Gabapentin (Neurontin) 300 mg PO TID [facility] Last Admin: 01/28/18 17:40 Dose: Not Given Glipizide (Glucotrol) 5 mg PO BID [facility] Last Admin: 01/28/18 21:25 Dose: Not Given Sodium Chloride (Saline 0.9%) 1,000 mls @ 20 mls/hr IV .Q24H [facility] Last Admin: 01/27/18 20:32 Dose: 20 mls/hr Vancomycin HCl 2,000 mg/ (Sodium Chloride) 500 mls @ 60 mls/hr IVPB Q24H [facility] Last Admin: 01/28/18 02:05 Dose: 60 mls/hr Cefepime HCl 2 gm/ Sodium (Chloride) 50 mls @ 100 mls/hr IVPB Q12HR [facility] Last Admin: 01/28/18 21:22 Dose: 100 mls/hr Levothyroxine Sodium (Synthroid) 125 mcg PO DAILY@0630 [facility] Last Admin: 01/28/18 06:33 Dose: 125 mcg Loratadine (Claritin) 10 mg PO DAILY [facility] Last Admin: 01/28/18 08:45 Dose: 10 mg Magnesium Oxide (Mag-Ox) 400 mg PO BID [facility] Last Admin: 01/28/18 21:25 Dose: 400 mg Metoprolol Tartrate (Lopressor) 50 mg PO BID [facility] Last Admin: 01/28/18 21:26 Dose: 50 mg Montelukast Sodium (Singulair) 10 mg PO [facility] Last Admin: 01/28/18 21:26 Dose: 10 mg Naloxone HCl (Narcan) 0.2 mg IV Q2M PRN PRN Reason: Opioid Reversal Ondansetron HCl (Zofran) 4 mg IVP Q8HR PRN PRN Reason: Nausea And Vomiting Last Admin: 01/28/18 17:43 Dose: 4 mg Pantoprazole Sodium (Protonix) 40 mg IVP BID [facility] Last Admin: 01/28/18 21:26 Dose: 40 mg Potassium Chloride (K-Dur 20) 20 meq PO BID [facility] Last Admin: 01/28/18 21:26 Dose: 20 meq Prednisone () 10 mg PO DAILY [facility] Last Admin: 01/28/18 08:46 Dose: 10 mg Tramadol HCl (Ultram) 50 mg PO Q6HR PRN PRN Reason: Pain Zolpidem Tartrate (Ambien) 10 mg PO [facility] Last Admin: 01/28/18 00:38 Dose: Not Given Home Medications Medication Instructions Recorded Confirmed Type Escitalopram Oxalate [Lexapro] 30 mg PO QAM 05/04/16 01/27/18 History Ferrous Sulfate [Iron (65 MG 325 mg PO DAILY 05/04/16 01/27/18 History Elemental)] Omeprazole [PriLOSEC] 20 mg PO AC-BID 05/04/16 01/27/18 History Atorvastatin [Lipitor] 20 mg PO DAILY 10/26/16 01/27/18 History Fluticasone Nasal [place] [Flonase 1 spray EA NOSTRIL DAILY 10/26/16 01/27/18 History Nasal [place]] Loratadine [Claritin] 10 mg PO DAILY 10/26/16 01/27/18 History Zolpidem [Ambien] 10 mg PO 10/26/16 01/27/18 History Furosemide [Lasix] 20 mg PO BID 08/19/17 01/27/18 History Gabapentin [Neurontin] 300 mg PO TID 08/19/17 01/27/18 History Levothyroxine Sodium [Synthroid] 125 mcg PO DAILY 08/19/17 01/27/18 History Potassium Chloride [Klor-Con 20] 20 meq PO BID 08/19/17 01/27/18 History traMADol HCL [Ultram] 50 mg PO Q6HR PRN #1 tab 08/23/17 01/27/18 Rx Calcium Carbonate/Vitamin D3 1 tab PO DAILY 10/08/17 01/27/18 History [Calcium 600-Vit D3 400 Caplet] Metoprolol Tartrate [Lopressor] 50 mg PO BID 10/08/17 01/27/18 History Montelukast [Singulair] 10 mg PO HS 10/08/17 01/27/18 History Albuterol Inhaler [Ventolin Hfa 2 puff INHALATION RT-QID PRN 10/29/17 01/27/18 History Inhaler] Budesonide/Formoterol Fumarate 2 puff INHALATION RT-BID 10/29/17 01/27/18 History [Symbicort 160-4.5 Mcg Inhaler] Ipratropium-Albuterol Nebulize 3 ml INHALATION RT-QID PRN 10/29/17 01/27/18 History [Duoneb 0.5 mg-3 mg/3 ml Soln] busPIRone HCl [Buspar] 5 mg PO BID 10/29/17 01/27/18 History Cyanocobalamin (Vitamin B-12) 1,000 mcg PO DAILY 90 Days #90 01/08/18 01/27/18 Rx [Vitamin B-12] tablet Acyclovir 400 mg PO BID #14 tablet 01/24/18 01/27/18 Rx Fluconazole [Diflucan] 100 mg PO DAILY #7 tab 01/24/18 01/27/18 Rx Levofloxacin [Levaquin] 500 mg PO DAILY #14 tab 01/24/18 01/27/18 Rx Ondansetron [Zofran] 4 mg PO Q6HR PRN #45 tab 01/24/18 01/27/18 Rx glipiZIDE [Glucotrol] 5 mg PO BID #60 tab 01/24/18 01/27/18 Rx predniSONE See Taper PO DAILY 01/27/18 01/27/18 History Allergies Allergy/AdvReac Type Severity Reaction Status Date / Time Penicillins Allergy Rash/Hives Verified 01/27/18 17:56 Physical Exam Vitals: Vital Signs Temp Pulse Pulse Resp BP BP Pulse Ox 01/28/18 20:15 98.1 F 89 18 110/58 100 01/28/18 14:48 98.5 F 84 16 119/74 97 01/28/18 08:22 98.7 F 94 15 115/61 97 01/28/18 07:23 97 01/28/18 06:19 100.4 F H 90 18 115/64 99 01/28/18 04:25 99.1 F 89 18 101/63 100 01/28/18 03:55 98.8 F 80 18 119/75 100 01/28/18 03:45 98.7 F 74 18 106/57 99 01/28/18 03:26 98.6 F 77 18 105/58 99 01/28/18 02:57 98.6 F 76 18 107/62 100 01/28/18 02:27 97.5 F L 80 18 102/59 99 01/28/18 02:17 97.9 F 79 18 101/56 100 01/28/18 02:04 98.1 F 78 18 99/49 98 01/27/18 23:58 98 F 77 18 98/52 100 01/27/18 23:40 98 F 77 18 98/50 100 01/27/18 23:16 99.9 F H 79 17 96/51 01/27/18 23:10 100.6 F H 86 18 96/57 01/27/18 23:00 100.3 F H 81 16 102/57 Intake and Output 01/28/18 01/28/18 01/28/18 06:59 14:59 22:59 Intake Total 1012 960 0 Balance 1012 960 0 Intake: Intake, IV Titration 960 Amount Cefepime 2 gm In Sodium 100 Chloride 0.9% 50 ml @ 100 mls/hr IVPB Q8HR [facility] Rx# :[id number] Magnesium Sulfate-D5w Pmx 200 1 gm In Dextrose/Water 1 100ml.bag @ 100 mls/hr IVPB ONCE ONE Rx#: [id number] Sodium Chloride 0.9% 1, 160 000 ml @ 20 mls/hr IV . Q24H [facility] Rx#:[id number] Vancomycin 2,000 mg In 500 Sodium Chloride 0.9% 500 ml @ 60 mls/hr IVPB Q24H [facility] Rx#:[id number] Oral 200 Blood Product 812 0 Platelet Irr Pheresis 2 192 Acda Unit [id number] Platelet Irr Pheresis 2 0 Acda Unit [id number] Rc Irr As1 Unit 310 [id number] Rc Irr As3 Unit 310 [id number] Other: Voiding Method Toilet Bedside Commode # Voids 1 3 # Bowel Movements 1 Weight 117 kg HEENT: Anicteric conjunctiva are pale and moist nasal mucosa grossly intact without significant lesions, there is no thrush but has irritatied mucosa. Neck: The neck is supple without significant lymphadenopathy or thyromegaly. Lungs: Good bilateral air entry without significant crackles or wheezing. There is no significant bronchial sounds. There is no egophony or dullness. Heart: Regular rate and rhythm with an audible S1-S2, no S3 no S4. There is no significant murmur click or rub, PMI was nondisplaced. Abdomen: Positive bowel sounds soft and nontender without palpable masses or organomegaly. There was no guarding or rebound. Extremities: The upper extremities have excellent pulses they are symmetric, no significant petechiae or telangiectasia. No splinter hemorrhages were noted. The lower extremities are free from significant edema. The peripheral pulses were 2+ and symmetric. Neuro: Awake alert oriented to person place and time. There are no acute new gross focal sensory motor deficits. Results CBC & Chem 7: 01/28/18 07:42 01/27/18 18:06 Labs: Abnormal Lab Results - Last 24 Hours (Table) 01/27/18 01/28/18 01/28/18 Range/Units 16:30 00:43 06:59 WBC (3.8-10.6) k/uL RBC (3.80-5.40) m/uL Hgb (11.4-16.0) gm/dL Hct (34.0-46.0) % Plt Count (150-450) k/uL POC Glucose (mg/dL) 146 H 135 H (75-99) mg/dL Magnesium (1.6-2.3) mg/dL Crossmatch See Detail 01/28/18 01/28/18 01/28/18 Range/Units 07:42 07:42 11:42 WBC 0.1 L* (3.8-10.6) k/uL RBC 2.35 L (3.80-5.40) m/uL Hgb 7.1 L (11.4-16.0) gm/dL Hct 21.5 L (34.0-46.0) % Plt Count 9 L* D (150-450) k/uL POC Glucose (mg/dL) 173 H (75-99) mg/dL Magnesium 1.3 L (1.6-2.3) mg/dL Crossmatch 01/28/18 01/28/18 Range/Units 17:08 20:21 WBC (3.8-10.6) k/uL RBC (3.80-5.40) m/uL Hgb (11.4-16.0) gm/dL Hct (34.0-46.0) % Plt Count (150-450) k/uL POC Glucose (mg/dL) 168 H 123 H (75-99) mg/dL Magnesium (1.6-2.3) mg/dL Crossmatch Microbiology - Last 24 Hours (Table) 01/27/18 21:57 Urine Culture - Preliminary Urine,Voided Laboratory Results WBC 0.1 k/uL (3.8-10.6) L* 01/28/18 07:42 RBC 2.35 m/uL (3.80-5.40) L 01/28/18 07:42 Hgb 7.1 gm/dL (11.4-16.0) L 01/28/18 07:42 Hct 21.5 % (34.0-46.0) L 01/28/18 07:42 MCV 91.8 fL (80.0-100.0) 01/28/18 07:42 MCH 30.3 pg (25.0-35.0) 01/28/18 07:42 MCHC 33.0 g/dL (31.0-37.0) 01/28/18 07:42 RDW 14.5 % (11.5-15.5) 01/28/18 07:42 Plt Count 9 k/uL (150-450) L* D 01/28/18 07:42 Differential Comment 01/28/18 07:42 Manual Slide Review Performed 01/28/18 07:42 Poikilocytosis (manual Present 01/28/18 07:42 PT 10.4 sec (9.0-12.0) 01/27/18 18:06 INR 1.1 (<1.2) 01/27/18 18:06 APTT 18.1 sec (22.0-30.0) L 01/27/18 18:06 Sodium 136 mmol/L (137-145) L 01/27/18 18:06 Potassium 4.8 mmol/L (3.5-5.1) 01/27/18 18:06 Chloride 104 mmol/L (98-107) 01/27/18 18:06 Carbon Dioxide 23 mmol/L (22-30) 01/27/18 18:06 Anion Gap 9 mmol/L 01/27/18 18:06 BUN 21 mg/dL (7-17) H 01/27/18 18:06 Creatinine 1.00 mg/dL (0.52-1.04) 01/27/18 18:06 Est GFR (CKD-EPI)AfAm 74 (>60 ml/min/1.73 sqM) 01/27/18 18:06 Est GFR (CKD-EPI)NonAf 64 (>60 ml/min/1.73 sqM) 01/27/18 18:06 Glucose 193 mg/dL (74-99) H 01/27/18 18:06 POC Glucose (mg/dL) 123 mg/dL (75-99) H 01/28/18 20:21 POC Glu Plumbing Technician ID Courtney Kilpatrick 01/28/18 20:21 Plasma Lactic Acid [place] 0.8 mmol/L (0.7-2.0) 01/27/18 22:40 Calcium 8.0 mg/dL (8.4-10.2) L 01/27/18 18:06 Magnesium 1.3 mg/dL (1.6-2.3) L 01/28/18 07:42 Total Bilirubin 1.0 mg/dL (0.2-1.3) 01/27/18 18:06 AST 9 U/L (14-36) L 01/27/18 18:06 ALT 21 U/L (9-52) 01/27/18 18:06 Alkaline Phosphatase 51 U/L (38-126) 01/27/18 18:06 Total Protein 5.6 g/dL (6.3-8.2) L 01/27/18 18:06 Albumin 3.1 g/dL (3.5-5.0) L 01/27/18 18:06 Urine Color Light Yellow 01/27/18 21:57 Urine Appearance Clear (Clear) 01/27/18 21:57 Urine pH 6.5 (5.0-8.0) 01/27/18 21:57 Ur Specific [place] 1.009 (1.001-1.035) 01/27/18 21:57 Urine Protein Trace (Negative) H 01/27/18 21:57 Urine Glucose (UA) 1+ (Negative) H 01/27/18 21:57 Urine Ketones Negative (Negative) 01/27/18 21:57 Urine Blood Trace (Negative) H 01/27/18 21:57 Urine Nitrite Negative (Negative) 01/27/18 21:57 Urine Bilirubin Negative (Negative) 01/27/18 21:57 Urine Urobilinogen <2.0 mg/dL (<2.0) 01/27/18 21:57 Ur Leukocyte Esterase Negative (Negative) 01/27/18 21:57 Urine RBC <1 /hpf (0-5) 01/27/18 21:57 Urine WBC 1 /hpf (0-5) 01/27/18 21:57 Ur Squamous Epith Cells 1 /hpf (0-4) 01/27/18 21:57 Urine Mucus Rare /hpf (None) H 01/27/18 21:57 Blood Type A Positive 01/27/18 16:30 Blood Type Confirm A Positive 01/27/18 19:26 Blood Type Recheck CABO Indicated 01/27/18 16:30 Antibody Screen NEGATIVE 01/27/18 16:30 Crossmatch See Detail 01/27/18 16:30 Transfuse Platelets 01/28/2018 01/28/18 11:22 Spec Expiration Date 01/30/2018 - 7040 01/27/18 16:30 Microbiology 01/27/18 21:57 Urine,Voided Urine Culture - Preliminary Assessment and Plan (1) Acute myeloid leukemia Current Visit: Yes Status: Acute Code(s): C92.00 - ACUTE MYELOBLASTIC LEUKEMIA, NOT HAVING ACHIEVED REMISSION SNOMED Code(s): 37038194 (2) Febrile neutropenia Narrative/Plan: 53-year-old female presents to the emergency center feelingpoorly findings with fever and pancytopenia. patient admitted treated with antibiotic given fever and pancytopenia with mild mucositis. Nausea and emesis now improved. Hematology addressing growth factor needs. Cultures in progress. No obvious site of infection is noted. Current Visit: Yes Status: Acute Code(s): D70.9 - NEUTROPENIA, UNSPECIFIED; R50.81 - FEVER PRESENTING WITH CONDITIONS CLASSIFIED ELSEWHERE SNOMED Code(s) : 152865937
[2018-01-29] MEDS: ZOLPIDEM 10 MG TAB PO SCH (00:07)
[2018-01-29] MEDS: GABAPENTIN 300 MG CAP PO SCH ×3 (00:46→17:48)
[2018-01-29] MEDS: VANCOMYCIN 2,000 MG in SODIUM CHLORIDE 0.9% 500 ML IVPB SCH ×2 (00:50→17:46)
[2018-01-29] MEDS: SODIUM CHLORIDE 0.9% 1,000 ML IV SCH (00:50)
[2018-01-29] MEDS: LEVOTHYROXINE 125 MCG TAB PO SCH (06:13)
[2018-01-29] MEDS: SYMBICORT 160-4.5 MCG INHALER INHALATION SCH ×2 (06:55→20:35)
[2018-01-29 06:59] LABS: Glucose,Whole Blood 100 mg/dL (75-99)
[2018-01-29 07:54] LABS: MCH 32.3 pg (25.0-35.0); MCHC 34.8 g/dL (31.0-37.0); MCV 92.5 fL (80.0-100.0); Mean Platelet Volume 6.5; RBC 2.09 m/uL (3.80-5.40); RDW 14.3 % (11.5-15.5)
[2018-01-29 07:59] LABS: WBC 0.2 k/uL (3.8-10.6)
[2018-01-29 08:00] LABS: Platelet Count 13 k/uL (150-450)
[2018-01-29] MEDS: FLUTICASONE 50MCG/SPRAY NASAL 16GM EA NOSTRIL SCH (08:03)
[2018-01-29] MEDS: PANTOPRAZOLE 40 MG/10 ML VIAL IVP SCH ×2 (08:03→21:44)
[2018-01-29] MEDS: ONDANSETRON 4 MG/2 ML VIAL IVP PRN (08:03)
[2018-01-29] MEDS: FUROSEMIDE 20 MG TAB PO SCH ×2 (08:04→21:45)
[2018-01-29] MEDS: predniSONE 10 MG TAB PO SCH (08:04)
[2018-01-29] MEDS: MAGNESIUM OXIDE 400 MG TAB PO SCH ×2 (08:04→21:45)
[2018-01-29] MEDS: METOPROLOL TARTRATE 50 MG TAB PO SCH ×2 (08:04→21:44)
[2018-01-29] MEDS: CEFEPIME 2 GM in SODIUM CHLORIDE 0.9% 50 ML IVPB SCH ×2 (08:04→21:43)
[2018-01-29] MEDS: ESCITALOPRAM 10 MG TAB PO SCH (08:04)
[2018-01-29] MEDS: LORATADINE 10 MG TAB PO SCH (08:04)
[2018-01-29] MEDS: glipiZIDE 5 MG TAB PO SCH ×2 (08:04→21:45)
[2018-01-29] MEDS: POTASSIUM CHLORIDE ER 20 MEQ TAB.ER PO SCH ×2 (08:04→21:44)
[2018-01-29] MEDS: FLUCONAZOLE 100 MG TAB PO SCH (08:04)
[2018-01-29] MEDS: busPIRone HCl 5 MG TAB PO SCH (08:05)
[2018-01-29] MEDS: CYANOCOBALAMIN 500 MCG TAB PO SCH (08:05)
[2018-01-29 08:06] LABS: Anion Gap 6 mmol/L; Blood Urea Nitrogen 10 mg/dL (7-17); Calcium 7.7 mg/dL (8.4-10.2); Carbon Dioxide 26 mmol/L (22-30); Chloride 106 mmol/L (98-107); Glucose 90 mg/dL (74-99); HCT 19.3 % (34.0-46.0); Magnesium 1.4 mg/dL (1.6-2.3); Potassium 3.6 mmol/L (3.5-5.1); Sodium 138 mmol/L (137-145)
[2018-01-29] MEDS: ACYCLOVIR 200 MG CAP PO SCH (08:06)
[2018-01-29 08:07] LABS: HGB 6.7 gm/dL (11.4-16.0)
[2018-01-29] MEDS: ATORVASTATIN 20 MG TAB PO SCH (08:07)
[2018-01-29 08:45] LABS: Anisocytosis (M) Present; Poikilocytosis (M) Present
[2018-01-29] MEDS: METHYL SALICYLATE/MENTHOL CREAM 5 OZ TOPICAL SCH (09:41)
[2018-01-29] MEDS: MAGNESIUM SULFATE-D5W PMX 1 GM in DEXTROSE/WATER 1 100ML.BAG IVPB SCH ×2 (09:46→11:32)
[2018-01-29 11:06] LABS: Glucose,Whole Blood 139 mg/dL (75-99)
[2018-01-29] MEDS: SALT AND SODA MOUTHWASH 1,000 ML PO SCH ×4 (11:31→21:58)
--- NOTE | 2018-01-29 12:19 | PN ---
PROGRESS NOTE DATE OF SERVICE: 01/29/2018 This 53-year-old woman who was admitted with weakness and possible neutropenic sepsis on broad-spectrum IV antibiotics. The patient's hemoglobin has again dropped to 6.7 today. Transfusion is arranged. No chest pain or palpitations. No fever. PHYSICAL EXAM: On exam, alert and oriented x3. Pulse 97, blood pressure 100/53, respirations 20 , temperature 99.4, pulse ox 93% on 2 L. HEENT: Conjunctivae normal. NECK: No jugular venous distention. CARDIOVASCULAR: S1 and S2 muffled. RESPIRATORY: Breath sounds diminished at the bases. Scattered rhonchi. No crackles. ABDOMEN: Soft, nontender. No mass palpable. LEGS: No edema. NERVOUS SYSTEM: No focal deficits. LABS: WBC 0.2, hemoglobin 6.7. Magnesium 1.4. ASSESSMENT: 1. Severe pancytopenia as well as neutropenic fever and sepsis, present on admission. 2. Status post chemotherapy for acute myeloid leukemia. 3. Acute gastritis. 4. History of bronchial asthma. 5. History of recent sepsis. 6. Hypertension. 7. Chronic hypoxic respiratory failure on home O2. 8. Hyperlipidemia. 9. Diabetes mellitus type 2. 10.Obesity. 11.Gastroesophageal reflux disease. 12.Chronic low back pain. 13.Hypothyroidism. 14.Anxiety, depression. RECOMMENDATIONS AND DISCUSSION: Recommend to continue current medications, continue symptomatic treatment. Otherwise, will monitor the patient closely. broad-spectrum IV antibiotic, transfusion and repeat labs. Guarded prognosis. Further recommendations to follow. MMODL / IJN: [id number] / MITA
--- NOTE | 2018-01-29 13:35 | P.PN ---
Subjective Progress Note Date: 01/29/18 Principal diagnosis: AML Patient seen and evaluated in follow-up today. She has only had low grade fever since yesterday am. T Max 99.4. Hemoglobin 6.7 she will recieve transfusion today Objective - Vital Signs Vital signs: Vital Signs Temp 99.4 F 01/29/18 05:58 Pulse 97 01/29/18 05:58 Resp 20 01/29/18 05:58 BP 100/53 01/29/18 05:58 Pulse Ox 93 L 01/29/18 05:58 Intake & Output 01/28/18 01/29/18 01/29/18 18:59 06:59 18:59 Intake Total 960 1470 Balance 960 1470 Weight 117 kg Intake: Intake, IV Titration 960 790 Amount Cefepime 2 gm In Sodium 50 Chloride 0.9% 50 ml @ 100 mls/hr IVPB Q12HR [facility] Rx #:[id number] Cefepime 2 gm In Sodium 100 Chloride 0.9% 50 ml @ 100 mls/hr IVPB Q8HR [facility] Rx# :[id number] Magnesium Sulfate-D5w Pmx 200 1 gm In Dextrose/Water 1 100ml.bag @ 100 mls/hr IVPB ONCE ONE Rx#: [id number] Sodium Chloride 0.9% 1, 160 240 000 ml @ 20 mls/hr IV . Q24H [facility] Rx#:[id number] Vancomycin 2,000 mg In 500 500 Sodium Chloride 0.9% 500 ml @ 167 mls/hr IVPB Q24H [facility] Rx#:[id number] Oral 480 Blood Product 200 Platelet Irr Pheresis 2 200 Acda Unit [id number] Other: Voiding Method Toilet Bedside Commode # Voids 3 1 # Bowel Movements 1 - Constitutional General appearance: Present: cooperative, no acute distress, obese - EENT Eyes: Present: EOMI, PERRLA, dentition normal ENT: Present: NA/AT, normal oropharynx - Neck Details: Supple, Trachea Midline Neck: Present: normal ROM - Respiratory Respiratory: bilateral: CTA (No increased efffort, ), wheezing (occassional scattered wheezes cleared with cough) - Cardiovascular Rhythm: regular Heart sounds: normal: S1, S2 - Peripheral edema leg Peripheral Edema: bilateral: Trace - Gastrointestinal General gastrointestinal: Present: normal bowel sounds, soft - Integumentary Integumentary: Present: pale - Neurologic Neurologic Comment(s): No focal defects Neurologic: Present: CNII-XII intact - Musculoskeletal Musculoskeletal: Present: gait normal, generalized weakness, strength equal bilaterally - Psychiatric Psychiatric: Present: A&O x's 3, appropriate affect, intact judgment & insight - Labs CBC & Chem 7: 01/29/18 07:31 01/29/18 07:31 Labs: Abnormal Lab Results - Last 24 Hours (Table) 01/27/18 01/28/18 01/28/18 Range/Units 16:30 17:08 20:21 WBC (3.8-10.6) k/uL RBC (3.80-5.40) m/uL Hgb (11.4-16.0) gm/dL Hct (34.0-46.0) % Plt Count (150-450) k/uL POC Glucose (mg/dL) 168 H 123 H (75-99) mg/dL Calcium (8.4-10.2) mg/dL Magnesium (1.6-2.3) mg/dL Crossmatch See Detail 01/29/18 01/29/18 01/29/18 Range/Units 06:58 07:31 07:31 WBC 0.2 L* (3.8-10.6) k/uL RBC 2.09 L (3.80-5.40) m/uL Hgb 6.7 L* (11.4-16.0) gm/dL Hct 19.3 L* (34.0-46.0) % Plt Count 13 L* (150-450) k/uL POC Glucose (mg/dL) 100 H (75-99) mg/dL Calcium 7.7 L (8.4-10.2) mg/dL Magnesium 1.4 L (1.6-2.3) mg/dL Crossmatch 01/29/18 Range/Units 11:04 WBC (3.8-10.6) k/uL RBC (3.80-5.40) m/uL Hgb (11.4-16.0) gm/dL Hct (34.0-46.0) % Plt Count (150-450) k/uL POC Glucose (mg/dL) 139 H (75-99) mg/dL Calcium (8.4-10.2) mg/dL Magnesium (1.6-2.3) mg/dL Crossmatch Microbiology - Last 24 Hours (Table) 01/27/18 21:57 Urine Culture - Final Urine,Voided 01/27/18 22:40 Blood Culture - Preliminary Blood No Growth after 24 hours Assessment and Plan Plan: Assessment and Plan (1) Febrile neutropenia Narrative/Plan: the pt is presenting with low grade fever. She has neutropenia related to her chemo. There are no localizing s/s for infection. The fever may be related to transfusion. Given her risk factors, it is appropriate to cover her with broad spectrum antibiotics, and check cultures. IF fever resolves and cultures stay negative, she can potentially be placed back on oral antibiotics and then discharged. Agree with Vanco and Cefepime. Continue Acyclovir. Switch Diflucan back to Posiconazole as she was placed on the same at her previous discharge. Agree with ID Following - She has been relatively afebrile 24 hours. If she remains afebrile and cultures remain negative will consult with Infectious disease for discharge Current Visit: Yes Status: Acute Code(s): D70.9 - NEUTROPENIA, UNSPECIFIED; R50.81 - FEVER PRESENTING WITH CONDITIONS CLASSIFIED ELSEWHERE SNOMED Code(s) : 902200671 (2) Pancytopenia Narrative/Plan: Secondary to chemotherapy.There is no evidence of bleeding. Transfuse an additional U of plt. Continue to monitor and transfuse to keep hgb > 7, and plt > 10 unless actively bleeding. Hemoglobin 6.7 today will transfuse one unit of Irradiated PRBC today Current Visit: Yes Status: Acute Priority: High Code(s): D61.818 - OTHER PANCYTOPENIA SNOMED Code(s): 778898831 (3) Acute myeloid leukemia Narrative/Plan: S/P induction chemotherapy. Continue supportive care till counts recover. Current Visit: Yes Status: Acute Code(s): C92.00 - ACUTE MYELOBLASTIC LEUKEMIA, NOT HAVING ACHIEVED REMISSION SNOMED Code(s): 41991399 Physician Attestation: I have completed the full history and physical of this patient and agree with above dictation by Ashlee Temple NP. DIctated as a scribe.
[2018-01-29 16:56] LABS: Glucose,Whole Blood 195 mg/dL (75-99)
[2018-01-29 20:22] LABS: Glucose,Whole Blood 166 mg/dL (75-99)
[2018-01-29] MEDS: MONTELUKAST 10 MG TAB PO SCH (21:44)
[2018-01-30] MEDS: METHYL SALICYLATE/MENTHOL CREAM 5 OZ TOPICAL SCH ×3 (00:59→21:34)
[2018-01-30] MEDS: ZOLPIDEM 10 MG TAB PO SCH ×2 (01:02→23:47)
[2018-01-30] MEDS: ONDANSETRON 4 MG/2 ML VIAL IVP PRN (01:02)
[2018-01-30] MEDS: ACYCLOVIR 200 MG CAP PO SCH ×3 (01:21→21:33)
[2018-01-30] MEDS: SODIUM CHLORIDE 0.9% 1,000 ML IV SCH ×2 (03:07→21:32)
[2018-01-30] MEDS: LEVOTHYROXINE 125 MCG TAB PO SCH (06:08)
[2018-01-30 07:10] LABS: Glucose,Whole Blood 78 mg/dL (75-99)
[2018-01-30 07:29] LABS: HCT 21.9 % (34.0-46.0); HGB 7.6 gm/dL (11.4-16.0); MCH 32.4 pg (25.0-35.0); MCHC 34.6 g/dL (31.0-37.0); MCV 93.6 fL (80.0-100.0); RBC 2.34 m/uL (3.80-5.40)
[2018-01-30 07:32] LABS: Platelet Count 10 k/uL (150-450); WBC 0.3 k/uL (3.8-10.6)
[2018-01-30] MEDS: SYMBICORT 160-4.5 MCG INHALER INHALATION SCH ×2 (07:35→20:32)
[2018-01-30 07:38] LABS: Anion Gap 6 mmol/L; Blood Urea Nitrogen 11 mg/dL (7-17); Calcium 7.5 mg/dL (8.4-10.2); Carbon Dioxide 27 mmol/L (22-30); Chloride 108 mmol/L (98-107); Glucose 76 mg/dL (74-99); Magnesium 1.5 mg/dL (1.6-2.3); Potassium 3.3 mmol/L (3.5-5.1); Sodium 141 mmol/L (137-145)
[2018-01-30 07:54] LABS: Poikilocytosis (M) Present
[2018-01-30] MEDS: ATORVASTATIN 20 MG TAB PO SCH (09:14)
[2018-01-30] MEDS: glipiZIDE 5 MG TAB PO SCH ×2 (09:15→21:33)
[2018-01-30] MEDS: METOPROLOL TARTRATE 50 MG TAB PO SCH ×2 (09:15→21:34)
[2018-01-30] MEDS: MAGNESIUM OXIDE 400 MG TAB PO SCH ×2 (09:15→21:33)
[2018-01-30] MEDS: predniSONE 10 MG TAB PO SCH (09:15)
[2018-01-30] MEDS: ESCITALOPRAM 10 MG TAB PO SCH (09:15)
[2018-01-30] MEDS: CYANOCOBALAMIN 500 MCG TAB PO SCH (09:15)
[2018-01-30] MEDS: POTASSIUM CHLORIDE ER 20 MEQ TAB.ER PO SCH ×2 (09:15→21:35)
[2018-01-30] MEDS: LORATADINE 10 MG TAB PO SCH (09:15)
[2018-01-30] MEDS: FUROSEMIDE 20 MG TAB PO SCH ×2 (09:15→21:33)
[2018-01-30] MEDS: FLUTICASONE 50MCG/SPRAY NASAL 16GM EA NOSTRIL SCH (09:16)
[2018-01-30] MEDS: PANTOPRAZOLE 40 MG/10 ML VIAL IVP SCH ×2 (09:16→21:35)
[2018-01-30] MEDS: SALT AND SODA MOUTHWASH 1,000 ML PO SCH ×4 (09:16→21:35)
[2018-01-30] MEDS: FLUCONAZOLE 100 MG TAB PO SCH (09:17)
[2018-01-30] MEDS: CEFEPIME 2 GM in SODIUM CHLORIDE 0.9% 50 ML IVPB SCH ×2 (09:17→16:55)
[2018-01-30] MEDS: VANCOMYCIN 2,000 MG in SODIUM CHLORIDE 0.9% 500 ML IVPB SCH ×2 (10:35→21:35)
[2018-01-30 11:53] LABS: Glucose,Whole Blood 125 mg/dL (75-99)
--- NOTE | 2018-01-30 12:35 | PN ---
PROGRESS NOTE DATE OF SERVICE: 01/30/2018 This 53-year-old woman was admitted with severe pancytopenia and neutropenic sepsis is being closely monitored. The white count is 0.3. The patient has also been ordered 5 more units of platelets. At this time no chest pain or palpitation. No fever. PHYSICAL EXAMINATION: On exam, alert and oriented x3. Pulse 76, blood pressure 126/75, respiration 16, temperature 97.9, pulse ox 94% on 2 L nasal cannula. HEENT: Conjunctivae pale. Oral mucosa moist. NECK: No jugular venous distention. No carotid bruit. No lymph node enlargement. CARDIOVASCULAR: S1 and S2 muffled. RESPIRATORY: Breath sounds diminished in the bases. A few scattered rhonchi. No crackles. ABDOMEN: Soft, obese, nontender. LEGS: No edema, no swelling. NERVOUS SYSTEM: No focal deficits. LABS: WBC 0.3, hemoglobin 7.6, platelets 10. Magnesium 1.5. ASSESSMENT: 1. Severe pancytopenia as well as neutropenic fever and sepsis present on admission. 2. Status post chemotherapy for acute myeloid leukemia. 3. Acute gastritis. 4. History of bronchial asthma. 5. Hypomagnesemia. 6. History of recent sepsis. 7. Hypertension. 8. Chronic hypoxic respiratory failure on home O2. 9. Hyperlipidemia. 10.Diabetes mellitus type 2. 11.Obesity. 12.Gastroesophageal reflux disease. 13.Chronic low back pain. 14.Hypothyroidism. 15.Anxiety, depression. RECOMMENDATIONS AND DISCUSSION: Recommend to continue current medication and symptomatic treatment. Platelet transfusion. Continue with antibiotics. Magnesium supplementation. Guarded prognosis because of multiple complex medical issues. Discussed with the patient. Will continue to monitor. Increase ambulation. Further recommendations to follow. Repeat labs. MMODL / IJN: [id number] /
[2018-01-30] MEDS: MAGNESIUM SULFATE-D5W PMX 1 GM in DEXTROSE/WATER 1 100ML.BAG IVPB SCH ×2 (13:25→14:38)
--- NOTE | 2018-01-30 13:49 | P.PN ---
Subjective Progress Note Date: 01/30/18 Principal diagnosis: AML Patient seen and evaluated in follow-up today. She has remained afebrile the past 24 hours. Objective - Vital Signs Vital signs: Vital Signs Temp 97.9 F 01/30/18 05:00 Pulse 76 01/30/18 05:00 Resp 16 01/30/18 05:00 BP 126/75 01/30/18 06:38 Pulse Ox 94 L 01/30/18 05:00 Intake & Output 01/29/18 01/30/18 01/30/18 18:59 06:59 18:59 Intake Total 460 1490 Balance 460 1490 Intake: Intake, IV Titration 460 280 Amount Cefepime 2 gm In Sodium 100 200 Chloride 0.9% 50 ml @ 100 mls/hr IVPB Q12HR [facility] Rx #:[id number] Magnesium Sulfate-D5w Pmx 200 1 gm In Dextrose/Water 1 100ml.bag @ 100 mls/hr IVPB Q1H [facility] Rx#: [id number] Sodium Chloride 0.9% 1, 160 80 000 ml @ 20 mls/hr IV . Q24H [facility] Rx#:[id number] Oral 900 Blood Product 310 Rc Irr As3 Unit 310 [id number] Other: Voiding Method Toilet # Voids 3 3 - Constitutional General appearance: Present: cooperative, morbidly obese, no acute distress - EENT Eyes: Present: EOMI, dentition normal, normal appearance ENT: Present: NA/AT, normal oropharynx - Neck Details: Supple, Trachea midline Neck: Present: normal ROM - Respiratory Details: No increased effort Respiratory: bilateral: CTA - Cardiovascular Rhythm: regular Heart sounds: normal: S1, S2 - Gastrointestinal Gastrointestinal Comment(s): Morbid Obesity General gastrointestinal: Present: normal bowel sounds, soft - Integumentary Integumentary: Present: pale - Musculoskeletal Musculoskeletal: Present: gait normal, generalized weakness, strength equal bilaterally - Psychiatric Psychiatric: Present: A&O x's 3, appropriate affect, intact judgment & insight - Labs CBC & Chem 7: 01/30/18 06:44 01/30/18 06:44 Labs: Abnormal Lab Results - Last 24 Hours (Table) 01/27/18 01/29/18 01/29/18 Range/Units 16:30 16:54 20:20 WBC (3.8-10.6) k/uL RBC (3.80-5.40) m/uL Hgb (11.4-16.0) gm/dL Hct (34.0-46.0) % Plt Count (150-450) k/uL Potassium (3.5-5.1) mmol/L Chloride (98-107) mmol/L POC Glucose (mg/dL) 195 H 166 H (75-99) mg/dL Calcium (8.4-10.2) mg/dL Magnesium (1.6-2.3) mg/dL Crossmatch See Detail 01/30/18 01/30/18 01/30/18 Range/Units 06:44 06:44 11:46 WBC 0.3 L* (3.8-10.6) k/uL RBC 2.34 L (3.80-5.40) m/uL Hgb 7.6 L (11.4-16.0) gm/dL Hct 21.9 L (34.0-46.0) % Plt Count 10 L* (150-450) k/uL Potassium 3.3 L (3.5-5.1) mmol/L Chloride 108 H (98-107) mmol/L POC Glucose (mg/dL) 125 H (75-99) mg/dL Calcium 7.5 L (8.4-10.2) mg/dL Magnesium 1.5 L (1.6-2.3) mg/dL Crossmatch Microbiology - Last 24 Hours (Table) 01/27/18 22:40 Blood Culture - Preliminary Blood No Growth after 48 hours 01/27/18 21:57 Urine Culture - Final Urine,Voided Assessment and Plan Plan: Assessment and Plan (1) Febrile neutropenia Narrative/Plan: the pt is presenting with low grade fever. She has neutropenia related to her chemo. There are no localizing s/s for infection. The fever may be related to transfusion. Given her risk factors, it is appropriate to cover her with broad spectrum antibiotics, and check cultures. IF fever resolves and cultures stay negative, she can potentially be placed back on oral antibiotics and then discharged. Agree with Vanco and Cefepime. Continue Acyclovir. Switch Diflucan back to Posiconazole as she was placed on the same at her previous discharge. Agree with ID Following - She has been relatively afebrile 24 hours. If she remains afebrile and cultures remain negative will consult with Infectious disease for discharge Current Visit: Yes Status: Acute Code(s): D70.9 - NEUTROPENIA, UNSPECIFIED; R50.81 - FEVER PRESENTING WITH CONDITIONS CLASSIFIED ELSEWHERE SNOMED Code(s) : 099552441 (2) Pancytopenia Narrative/Plan: Secondary to chemotherapy.There is no evidence of bleeding. Transfuse an additional U of plt. Continue to monitor and transfuse to keep hgb > 7, and plt > 10 unless actively bleeding. Hemoglobin today will transfuse one unit of Irradiated PRBC today Platlets are 10 today will order one unit irradiated Platlets today Current Visit: Yes Status: Acute Priority: High Code(s): D61.818 - OTHER PANCYTOPENIA SNOMED Code(s): 079335085 (3) Acute myeloid leukemia Narrative/Plan: S/P induction chemotherapy. Continue supportive care till counts recover. Current Visit: Yes Status: Acute Code(s): C92.00 - ACUTE MYELOBLASTIC LEUKEMIA, NOT HAVING ACHIEVED REMISSION SNOMED Code(s): 92062818 Physician Attestation: I have completed the full history and physical of this patient and agree with above dictation by Ashlee Temple NP. DIctated as a scribe.
[2018-01-30 17:09] LABS: Glucose,Whole Blood 235 mg/dL (75-99)
[2018-01-30 20:26] LABS: Glucose,Whole Blood 137 mg/dL (75-99)
[2018-01-30] MEDS: MONTELUKAST 10 MG TAB PO SCH (21:34)
--- NOTE | 2018-01-30 23:01 | P.PN ---
Subjective Progress Note Date: 01/30/18 This is a 53-year-old female patient known to ID service as she was seen during her hospitalization in July of this year. At that time she was treated for acute asthma exacerbation complicated by influenza B tracheobronchitis. ID was consulted regarding a cellulitis of the lower extremities. Patient was discharged home on Keflex. Regarding her legs, patient states that they occasionally get red but not a significant problem at this time. Patient states that she has had for about the last month difficulty with ambulating very far and early fatigue and shortness of breath. She states she has been sick for about one week or more with fever and worsening shortness of breath along with cough. She came into [facility] emergency center and on CAT scan of the chest done on 01/06 showed new extensive bilateral pulmonary airspace infiltrate consistent with acute asthma. Increased hair a tracheal adenopathy. She was originally treated with Levaquin and has been switched over to meropenem by Dr. Rubalcava. Patient is also been febrile with pancytopenia. Mycoplasma pneumoniae IgM was normal and Legionella antigen was not detected. eventually flow cytometry revealed evidence of blasts, bone marrow aspiration was performed and confirmed the acute myelogenous leukemia. The patient has been treated with the 7+3 protocol and did modestly well. she now presents with nausea emesis weakness and dehydration. Also with significant pancytopenia and fever, with her febrile neutropenia the infectious diseases consultation was requested 01/30/2018 the patient is further improved. She's having no further fevers or chills. Was having difficulties with anemia and thrombocytopenia. She was inquiring if she will receive any further chemotherapy. Objective - Vital Signs Vital signs: Vital Signs Temp 98.3 F 01/30/18 17:50 Pulse 85 01/30/18 17:50 Resp 16 01/30/18 17:50 BP 111/73 01/30/18 17:50 Pulse Ox 90 L 01/30/18 17:50 Intake & Output 01/30/18 01/30/18 01/31/18 06:59 18:59 06:59 Intake Total 1490 1107 Balance 1490 1107 Intake: Intake, IV Titration 280 810 Amount Cefepime 2 gm In Sodium 200 50 Chloride 0.9% 50 ml @ 100 mls/hr IVPB Q12HR [facility] Rx #:[id number] Magnesium Sulfate-D5w Pmx 100 1 gm In Dextrose/Water 1 100ml.bag @ 100 mls/hr IVPB Q1H [facility] Rx#: [id number] Sodium Chloride 0.9% 1, 80 160 000 ml @ 20 mls/hr IV . Q24H [facility] Rx#:[id number] Vancomycin 2,000 mg In 500 Sodium Chloride 0.9% 500 ml @ 167 mls/hr IVPB Q12HR [facility] Rx#:[id number] Oral 900 Blood Product 310 297 Platelet Irr Pheresis 297 Acda1 Unit [id number] Rc Irr As3 Unit 310 [id number] Other: Voiding Method Toilet # Voids 3 3 - Exam HEENT: Anicteric conjunctiva are pale and moist nasal mucosa grossly intact without significant lesions, there is no thrush but has irritatied mucosa. Patient is now starting to have extensive hair loss from her scalp Neck: The neck is supple without significant lymphadenopathy or thyromegaly. Lungs: Good bilateral air entry without significant crackles or wheezing. There is no significant bronchial sounds. There is no egophony or dullness. Heart: Regular rate and rhythm with an audible S1-S2, no S3 no S4. There is no significant murmur click or rub, PMI was nondisplaced. Abdomen: Positive bowel sounds soft and nontender without palpable masses or organomegaly. There was no guarding or rebound. Extremities: The upper extremities have excellent pulses they are symmetric, no significant petechiae or telangiectasia. No splinter hemorrhages were noted. The lower extremities are free from significant edema. The peripheral pulses were 2+ and symmetric. Neuro: Awake alert oriented to person place and time. There are no acute new gross focal sensory motor deficits. - Labs CBC & Chem 7: 01/30/18 06:44 01/30/18 06:44 Labs: Abnormal Lab Results - Last 24 Hours (Table) 01/27/18 01/30/18 01/30/18 Range/Units 16:30 06:44 06:44 WBC 0.3 L* (3.8-10.6) k/uL RBC 2.34 L (3.80-5.40) m/uL Hgb 7.6 L (11.4-16.0) gm/dL Hct 21.9 L (34.0-46.0) % Plt Count 10 L* (150-450) k/uL Potassium 3.3 L (3.5-5.1) mmol/L Chloride 108 H (98-107) mmol/L POC Glucose (mg/dL) (75-99) mg/dL Calcium 7.5 L (8.4-10.2) mg/dL Magnesium 1.5 L (1.6-2.3) mg/dL Crossmatch See Detail 01/30/18 01/30/18 01/30/18 Range/Units 11:46 16:51 20:24 WBC (3.8-10.6) k/uL RBC (3.80-5.40) m/uL Hgb (11.4-16.0) gm/dL Hct (34.0-46.0) % Plt Count (150-450) k/uL Potassium (3.5-5.1) mmol/L Chloride (98-107) mmol/L POC Glucose (mg/dL) 125 H 235 H 137 H (75-99) mg/dL Calcium (8.4-10.2) mg/dL Magnesium (1.6-2.3) mg/dL Crossmatch Microbiology - Last 24 Hours (Table) 01/27/18 22:40 Blood Culture - Preliminary Blood No Growth after 48 hours Laboratory Results WBC 0.3 k/uL (3.8-10.6) L* 01/30/18 06:44 RBC 2.34 m/uL (3.80-5.40) L 01/30/18 06:44 Hgb 7.6 gm/dL (11.4-16.0) L 01/30/18 06:44 Hct 21.9 % (34.0-46.0) L 01/30/18 06:44 MCV 93.6 fL (80.0-100.0) 01/30/18 06:44 MCH 32.4 pg (25.0-35.0) 01/30/18 06:44 MCHC 34.6 g/dL (31.0-37.0) 01/30/18 06:44 RDW 14.0 % (11.5-15.5) 01/30/18 06:44 Plt Count 10 k/uL (150-450) L* 01/30/18 06:44 Differential Comment 01/30/18 06:44 Manual Slide Review Performed 01/30/18 06:44 Poikilocytosis (manual Present 01/30/18 06:44 Anisocytosis (manual) Present 01/29/18 07:31 PT 10.4 sec (9.0-12.0) 01/27/18 18:06 INR 1.1 (<1.2) 01/27/18 18:06 APTT 18.1 sec (22.0-30.0) L 01/27/18 18:06 Sodium 141 mmol/L (137-145) 01/30/18 06:44 Potassium 3.3 mmol/L (3.5-5.1) L 01/30/18 06:44 Chloride 108 mmol/L (98-107) H 01/30/18 06:44 Carbon Dioxide 27 mmol/L (22-30) 01/30/18 06:44 Anion Gap 6 mmol/L 01/30/18 06:44 BUN 11 mg/dL (7-17) 01/30/18 06:44 Creatinine 0.73 mg/dL (0.52-1.04) 01/30/18 06:44 Est GFR (CKD-EPI)AfAm >90 (>60 ml/min/1.73 sqM) 01/30/18 06:44 Est GFR (CKD-EPI)NonAf >90 (>60 ml/min/1.73 sqM) 01/30/18 06:44 Glucose 76 mg/dL (74-99) 01/30/18 06:44 POC Glucose (mg/dL) 137 mg/dL (75-99) H 01/30/18 20:24 POC Glu Log Hauler ID Dana Polanco 01/30/18 20:24 Plasma Lactic Acid [place] 0.8 mmol/L (0.7-2.0) 01/27/18 22:40 Calcium 7.5 mg/dL (8.4-10.2) L 01/30/18 06:44 Magnesium 1.5 mg/dL (1.6-2.3) L 01/30/18 06:44 Total Bilirubin 1.0 mg/dL (0.2-1.3) 01/27/18 18:06 AST 9 U/L (14-36) L 01/27/18 18:06 ALT 21 U/L (9-52) 08/06/18 18:06 Alkaline Phosphatase 51 U/L (38-126) 01/27/18 18:06 Total Protein 5.6 g/dL (6.3-8.2) L 01/27/18 18:06 Albumin 3.1 g/dL (3.5-5.0) L 01/27/18 18:06 Urine Color Light Yellow 01/27/18 21:57 Urine Appearance Clear (Clear) 01/27/18 21:57 Urine pH 6.5 (5.0-8.0) 01/27/18 21:57 Ur Specific [place] 1.009 (1.001-1.035) 01/27/18 21:57 Urine Protein Trace (Negative) H 01/27/18 21:57 Urine Glucose (UA) 1+ (Negative) H 01/27/18 21:57 Urine Ketones Negative (Negative) 01/27/18 21:57 Urine Blood Trace (Negative) H 01/27/18 21:57 Urine Nitrite Negative (Negative) 01/27/18 21:57 Urine Bilirubin Negative (Negative) 01/27/18 21:57 Urine Urobilinogen <2.0 mg/dL (<2.0) 01/27/18 21:57 Ur Leukocyte Esterase Negative (Negative) 01/27/18 21:57 Urine RBC <1 /hpf (0-5) 01/27/18 21:57 Urine WBC 1 /hpf (0-5) 01/27/18 21:57 Ur Squamous Epith Cells 1 /hpf (0-4) 01/27/18 21:57 Urine Mucus Rare /hpf (None) H 01/27/18 21:57 Blood Type A Positive 01/27/18 16:30 Blood Type Confirm A Positive 01/27/18 19:26 Blood Type Recheck CABO Indicated 01/27/18 16:30 Antibody Screen NEGATIVE 01/27/18 16:30 Crossmatch See Detail 01/27/18 16:30 Transfuse Platelets 01/30/18 01/30/18 09:02 Spec Expiration Date 01/30/2018 - 3290 01/27/18 16:30 Microbiology 01/27/18 22:40 Blood Blood Culture - Preliminary No Growth after 48 hours 01/27/18 21:57 Urine,Voided Urine Culture - Final Assessment and Plan (1) Acute myeloid leukemia Current Visit: Yes Status: Acute Code(s): C92.00 - ACUTE MYELOBLASTIC LEUKEMIA, NOT HAVING ACHIEVED REMISSION SNOMED Code(s): 96406382 (2) Febrile neutropenia Narrative/Plan: 53-year-old female presents to the emergency center feelingpoorly findings with fever and pancytopenia. patient admitted treated with antibiotic given fever and pancytopenia with mild mucositis. Nausea and emesis now improved. Hematology addressing growth factor needs. Cultures in progress. No obvious site of infection is noted. Patient today 01/30/2018 is having improvement, she is having no further fevers or chills. She is not having shortness of breath or cough. She's not having diarrhea or other acute difficulties. Is having significant amounts of hair loss from her scalp. She's had induction chemotherapy. We described that this is the first cycle of chemotherapy in attempts to be achieved remission. Once this occurs then plans can be made for either consolidation chemotherapy or bone marrow transplant. She will have counts checked in the morning and potentially can be discharged home tomorrow on Levaquin, Valtrex, and fluconazole. Current Visit: Yes Status: Acute Code(s): D70.9 - NEUTROPENIA, UNSPECIFIED; R50.81 - FEVER PRESENTING WITH CONDITIONS CLASSIFIED ELSEWHERE SNOMED Code(s) : 956858250
[2018-01-31] MEDS: CEFEPIME 2 GM in SODIUM CHLORIDE 0.9% 50 ML IVPB SCH ×3 (00:48→17:27)
[2018-01-31] MEDS: LEVOTHYROXINE 125 MCG TAB PO SCH (06:19)
[2018-01-31 07:38] LABS: Glucose,Whole Blood 79 mg/dL (75-99)
[2018-01-31 07:56] LABS: HCT 21.7 % (34.0-46.0); HGB 7.3 gm/dL (11.4-16.0); MCH 31.3 pg (25.0-35.0); MCHC 33.9 g/dL (31.0-37.0); MCV 92.4 fL (80.0-100.0); Mean Platelet Volume 6.9; RBC 2.35 m/uL (3.80-5.40); RDW 13.8 % (11.5-15.5)
[2018-01-31] MEDS ORDERED: VANCOMYCIN TROUGH DUE 1 EACH MISC MISCELLANE ONE (08:00)
[2018-01-31 08:11] LABS: Platelet Count 19 k/uL (150-450); WBC 0.3 k/uL (3.8-10.6)
[2018-01-31 08:17] LABS: Anion Gap 4 mmol/L; Blood Urea Nitrogen 10 mg/dL (7-17); Calcium 7.7 mg/dL (8.4-10.2); Carbon Dioxide 29 mmol/L (22-30); Chloride 108 mmol/L (98-107); Glucose 79 mg/dL (74-99); Magnesium 1.5 mg/dL (1.6-2.3); Potassium 3.3 mmol/L (3.5-5.1); Sodium 141 mmol/L (137-145)
[2018-01-31] MEDS: SYMBICORT 160-4.5 MCG INHALER INHALATION SCH ×2 (08:23→20:25)
[2018-01-31] MEDS: PANTOPRAZOLE 40 MG/10 ML VIAL IVP SCH ×2 (08:48→21:06)
[2018-01-31] MEDS: ESCITALOPRAM 10 MG TAB PO SCH (08:51)
[2018-01-31] MEDS: LORATADINE 10 MG TAB PO SCH (08:52)
[2018-01-31] MEDS: MAGNESIUM OXIDE 400 MG TAB PO SCH ×3 (08:52→21:07)
[2018-01-31] MEDS: POTASSIUM CHLORIDE ER 20 MEQ TAB.ER PO SCH ×2 (08:52→21:07)
[2018-01-31] MEDS: ATORVASTATIN 20 MG TAB PO SCH (08:52)
[2018-01-31] MEDS: CYANOCOBALAMIN 500 MCG TAB PO SCH (08:52)
[2018-01-31] MEDS: FLUCONAZOLE 100 MG TAB PO SCH (08:52)
[2018-01-31] MEDS: METHYL SALICYLATE/MENTHOL CREAM 5 OZ TOPICAL SCH ×2 (08:52→21:06)
[2018-01-31] MEDS: ACYCLOVIR 200 MG CAP PO SCH ×2 (08:52→21:06)
[2018-01-31] MEDS: glipiZIDE 5 MG TAB PO SCH ×2 (08:53→21:06)
[2018-01-31] MEDS: FUROSEMIDE 20 MG TAB PO SCH ×2 (08:53→21:06)
[2018-01-31] MEDS: FLUTICASONE 50MCG/SPRAY NASAL 16GM EA NOSTRIL SCH (08:53)
[2018-01-31] MEDS: SALT AND SODA MOUTHWASH 1,000 ML PO SCH ×4 (08:53→21:07)
[2018-01-31] MEDS: predniSONE 10 MG TAB PO SCH (08:53)
[2018-01-31] MEDS: METOPROLOL TARTRATE 50 MG TAB PO SCH ×2 (08:53→21:06)
--- NOTE | 2018-01-31 08:58 | CDI ---
Last Revision, May 2017 Documentation Clarification Form Date: 01/31/18 From: Nayla Dacosta RN Admit Date: 01/27/2018 8:00:00 PM Patient Name: Kati Brunner Visit Number: [id number] ATTENTION: The Clinical Documentation Specialists (CDI) and [facility] Coding Staff appreciate your assistance in clarifying documentation. Please respond to the clarification below the line at the bottom and electronically sign. The CDI & [facility] Coding staff will review the response and follow-up if needed. Please note: Queries are made part of the Legal Health Record. If you have any questions, please contact the author of this message via ITS. Dr. Naveen Sharma MD, A diagnosis of anemia lacks specificity to accurately reflect your patients severity of condition and clarification is needed. History/Risk Factors: AML with chemo., bronchial asthma, DM, HTN, hypothyroidism , cardiac cath., obesity, chronic low back pain Patient presented with abnormal labs was told she needs blood transfusion pancytopenia, acute myeloid leukemia Clinical indicators: Hemoglobin: on admission 5.7, 01/31 7.3 Hematocrit: on admission 16.5, 01/31 21.7 Bronchial asthma is documented throughout the chart Treatment: 3 units of PRBCs transfused, 3 units of platelets, monitoring labs In order to capture the severity of condition, please clarify the type of anemia and etiology if known: Iron deficiency anemia Hemolytic anemia Anemia due to malignancy Nutritional anemia Anemia of chronic kidney disease Unable to determine Other, please specify Please continue to document in your progress notes, under the line below and/or in the discharge summary in order to capture severity of illness and risk of mortality. Include clinical findings that support your diagnosis. Unable to determine MTDD
[2018-01-31 09:39] LABS: Anisocytosis (M) Present; Poikilocytosis (M) Present
[2018-01-31] MEDS: VANCOMYCIN 2,000 MG in SODIUM CHLORIDE 0.9% 500 ML IVPB SCH ×2 (10:09→21:07)
[2018-01-31 11:21] LABS: Glucose,Whole Blood 98 mg/dL (75-99)
[2018-01-31] MEDS: MAGNESIUM SULFATE-D5W PMX 1 GM in DEXTROSE/WATER 1 100ML.BAG IVPB SCH ×3 (12:20→15:30)
[2018-01-31 17:09] LABS: Glucose,Whole Blood 183 mg/dL (75-99)
[2018-01-31] MEDS ORDERED: LOPERAMIDE 2 MG CAP PO STA (17:35)
--- NOTE | 2018-01-31 19:30 | P.PN ---
Subjective Progress Note Date: 01/31/18 Principal diagnosis: AML Patient seen and evaluated in follow-up today. She has remained afebrile the past 24 hours. Her WBC 0.3, and platlet and Hemoglobin remain low. She has not shown recovery of her blood counts yet. She is weak andf fatigued and a little confused today. She asks same questions over and over, unsure at first if she was being funny, but later realizing she was a little more off mentaly then normal. Discussed with nurse to continue to observe mental status changes. She does have diarrhea. C-Diff negative Objective - Vital Signs Vital signs: Vital Signs Temp 98.4 F 01/31/18 14:21 Pulse 72 01/31/18 14:21 Resp 16 01/31/18 14:21 BP 119/71 01/31/18 14:21 Pulse Ox 97 01/31/18 14:21 Intake & Output 01/31/18 01/31/18 02/01/18 06:59 18:59 06:59 Intake Total 1060 Balance 1060 Weight 117 kg Intake: Intake, IV Titration 820 Amount Cefepime 2 gm In Sodium 100 Chloride 0.9% 50 ml @ 100 mls/hr IVPB Q8HR [facility] Rx# :[id number] Sodium Chloride 0.9% 1, 220 000 ml @ 20 mls/hr IV . Q24H [facility] Rx#:[id number] Vancomycin 2,000 mg In 500 Sodium Chloride 0.9% 500 ml @ 167 mls/hr IVPB Q12HR [facility] Rx#:[id number] Oral 240 Other: Voiding Method Toilet Toilet # Voids 2 # Bowel Movements 2 3 - Constitutional General appearance: Present: cooperative, no acute distress, obese - EENT Eyes: Present: EOMI, PERRLA, dentition normal ENT: Present: NA/AT, normal oropharynx - Neck Details: Supple, trachea midline Neck: Present: normal ROM - Respiratory Respiratory: bilateral: CTA (no increased effort) - Cardiovascular Rhythm: regular Heart sounds: normal: S1, S2 - Gastrointestinal General gastrointestinal: Present: normal bowel sounds, soft - Integumentary Integumentary: Present: pale - Neurologic Neurologic Comment(s): no focal defects Neurologic: Present: CNII-XII intact - Musculoskeletal Musculoskeletal: Present: gait normal, generalized weakness, strength equal bilaterally - Psychiatric Psychiatric Comment(s): inappropriately answering questions intermittently today. Psychiatric: Present: A&O x's 3, appropriate affect - Labs CBC & Chem 7: 01/31/18 07:13 01/31/18 07:13 Labs: Abnormal Lab Results - Last 24 Hours (Table) 01/27/18 01/30/18 01/31/18 Range/Units 16:30 20:24 07:13 WBC 0.3 L* (3.8-10.6) k/uL RBC 2.35 L (3.80-5.40) m/uL Hgb 7.3 L (11.4-16.0) gm/dL Hct 21.7 L (34.0-46.0) % Plt Count 19 L* D (150-450) k/uL Potassium (3.5-5.1) mmol/L Chloride (98-107) mmol/L POC Glucose (mg/dL) 137 H (75-99) mg/dL Calcium (8.4-10.2) mg/dL Magnesium (1.6-2.3) mg/dL Crossmatch See Detail 01/31/18 01/31/18 Range/Units 07:13 17:07 WBC (3.8-10.6) k/uL RBC (3.80-5.40) m/uL Hgb (11.4-16.0) gm/dL Hct (34.0-46.0) % Plt Count (150-450) k/uL Potassium 3.3 L (3.5-5.1) mmol/L Chloride 108 H (98-107) mmol/L POC Glucose (mg/dL) 183 H (75-99) mg/dL Calcium 7.7 L (8.4-10.2) mg/dL Magnesium 1.5 L (1.6-2.3) mg/dL Crossmatch Microbiology - Last 24 Hours (Table) 01/27/18 22:40 Blood Culture - Preliminary Blood No Growth after 72 hours Assessment and Plan Plan: Assessment and Plan (1) Febrile neutropenia Narrative/Plan: the pt is presenting with low grade fever. She has neutropenia related to her chemo. There are no localizing s/s for infection. The fever may be related to transfusion. Given her risk factors, it is appropriate to cover her with broad spectrum antibiotics, and check cultures. IF fever resolves and cultures stay negative, she can potentially be placed back on oral antibiotics and then discharged. Agree with Vanco and Cefepime. Continue Acyclovir. Switch Diflucan back to Posiconazole as she was placed on the same at her previous discharge. Agree with ID Following - She has been relatively afebrile 24 hours. If she remains afebrile and cultures remain negative will consult with Infectious disease for discharge - Cultures remain negative Current Visit: Yes Status: Acute Code(s): D70.9 - NEUTROPENIA, UNSPECIFIED; R50.81 - FEVER PRESENTING WITH CONDITIONS CLASSIFIED ELSEWHERE SNOMED Code(s) : 898259236 (2) Pancytopenia Narrative/Plan: Secondary to chemotherapy.There is no evidence of bleeding. Transfuse an additional U of plt. Continue to monitor and transfuse to keep hgb > 7, and plt > 10 unless actively bleeding. Hemoglobin 7.1 today no transfusion needed today Platlets are 17 today will order one unit irradiated Platlets today Current Visit: Yes Status: Acute Priority: High Code(s): D61.818 - OTHER PANCYTOPENIA SNOMED Code(s): 529089445 (3) Acute myeloid leukemia Narrative/Plan: S/P induction chemotherapy. Continue supportive care till counts recover. Current Visit: Yes Status: Acute Code(s): C92.00 - ACUTE MYELOBLASTIC LEUKEMIA, NOT HAVING ACHIEVED REMISSION SNOMED Code(s): 68999268
--- NOTE | 2018-01-31 19:43 | P.PN ---
Subjective Progress Note Date: 01/31/18 This is a 53-year-old female patient known to ID service as she was seen during her hospitalization in July of this year. At that time she was treated for acute asthma exacerbation complicated by influenza B tracheobronchitis. ID was consulted regarding a cellulitis of the lower extremities. Patient was discharged home on Keflex. Regarding her legs, patient states that they occasionally get red but not a significant problem at this time. Patient states that she has had for about the last month difficulty with ambulating very far and early fatigue and shortness of breath. She states she has been sick for about one week or more with fever and worsening shortness of breath along with cough. She came into [facility] emergency center and on CAT scan of the chest done on 01/06 showed new extensive bilateral pulmonary airspace infiltrate consistent with acute asthma. Increased hair a tracheal adenopathy. She was originally treated with Levaquin and has been switched over to meropenem by Dr. Rubalcava. Patient is also been febrile with pancytopenia. Mycoplasma pneumoniae IgM was normal and Legionella antigen was not detected. eventually flow cytometry revealed evidence of blasts, bone marrow aspiration was performed and confirmed the acute myelogenous leukemia. The patient has been treated with the 7+3 protocol and did modestly well. she now presents with nausea emesis weakness and dehydration. Also with significant pancytopenia and fever, with her febrile neutropenia the infectious diseases consultation was requested 01/30/2018 the patient is further improved. She's having no further fevers or chills. Was having difficulties with anemia and thrombocytopenia. She was inquiring if she will receive any further chemotherapy. 01/31/2018 patient is not feeling poorly but has significant pancytopenia without active bleeding but significant diarrhea has been noted. She also has hypomagnesemia. Objective - Vital Signs Vital signs: Vital Signs Temp 98.4 F 01/31/18 14:21 Pulse 72 01/31/18 14:21 Resp 16 01/31/18 14:21 BP 119/71 01/31/18 14:21 Pulse Ox 97 01/31/18 14:21 Intake & Output 01/31/18 01/31/18 02/01/18 06:59 18:59 06:59 Intake Total 1060 Balance 1060 Weight 117 kg Intake: Intake, IV Titration 820 Amount Cefepime 2 gm In Sodium 100 Chloride 0.9% 50 ml @ 100 mls/hr IVPB Q8HR [facility] Rx# :[id number] Sodium Chloride 0.9% 1, 220 000 ml @ 20 mls/hr IV . Q24H [facility] Rx#:[id number] Vancomycin 2,000 mg In 500 Sodium Chloride 0.9% 500 ml @ 167 mls/hr IVPB Q12HR [facility] Rx#:[id number] Oral 240 Other: Voiding Method Toilet Toilet # Voids 2 # Bowel Movements 2 3 - Exam HEENT: Anicteric conjunctiva are pale and moist nasal mucosa grossly intact without significant lesions, there is no thrush but has irritatied mucosa. Patient is now starting to have extensive hair loss from her scalp Neck: The neck is supple without significant lymphadenopathy or thyromegaly. Lungs: Good bilateral air entry without significant crackles or wheezing. There is no significant bronchial sounds. There is no egophony or dullness. Heart: Regular rate and rhythm with an audible S1-S2, no S3 no S4. There is no significant murmur click or rub, PMI was nondisplaced. Abdomen: Positive bowel sounds soft and nontender without palpable masses or organomegaly. There was no guarding or rebound. Extremities: The upper extremities have excellent pulses they are symmetric, no significant petechiae or telangiectasia. No splinter hemorrhages were noted. The lower extremities are free from significant edema. The peripheral pulses were 2+ and symmetric. Neuro: Awake alert oriented to person place and time. There are no acute new gross focal sensory motor deficits. - Labs CBC & Chem 7: 01/31/18 07:13 01/31/18 07:13 Labs: Abnormal Lab Results - Last 24 Hours (Table) 01/27/18 01/30/18 01/31/18 Range/Units 16:30 20:24 07:13 WBC 0.3 L* (3.8-10.6) k/uL RBC 2.35 L (3.80-5.40) m/uL Hgb 7.3 L (11.4-16.0) gm/dL Hct 21.7 L (34.0-46.0) % Plt Count 19 L* D (150-450) k/uL Potassium (3.5-5.1) mmol/L Chloride (98-107) mmol/L POC Glucose (mg/dL) 137 H (75-99) mg/dL Calcium (8.4-10.2) mg/dL Magnesium (1.6-2.3) mg/dL Crossmatch See Detail 01/31/18 01/31/18 Range/Units 07:13 17:07 WBC (3.8-10.6) k/uL RBC (3.80-5.40) m/uL Hgb (11.4-16.0) gm/dL Hct (34.0-46.0) % Plt Count (150-450) k/uL Potassium 3.3 L (3.5-5.1) mmol/L Chloride 108 H (98-107) mmol/L POC Glucose (mg/dL) 183 H (75-99) mg/dL Calcium 7.7 L (8.4-10.2) mg/dL Magnesium 1.5 L (1.6-2.3) mg/dL Crossmatch Microbiology - Last 24 Hours (Table) 01/27/18 22:40 Blood Culture - Preliminary Blood No Growth after 72 hours Laboratory Results WBC 0.3 k/uL (3.8-10.6) L* 01/31/18 07:13 RBC 2.35 m/uL (3.80-5.40) L 01/31/18 07:13 Hgb 7.3 gm/dL (11.4-16.0) L 01/31/18 07:13 Hct 21.7 % (34.0-46.0) L 01/31/18 07:13 MCV 92.4 fL (80.0-100.0) 01/31/18 07:13 MCH 31.3 pg (25.0-35.0) 01/31/18 07:13 MCHC 33.9 g/dL (31.0-37.0) 01/31/18 07:13 RDW 13.8 % (11.5-15.5) 01/31/18 07:13 Plt Count 19 k/uL (150-450) L* D 01/31/18 07:13 Differential Comment 01/31/18 07:13 Manual Slide Review Performed 01/30/18 06:44 Poikilocytosis (manual Present 01/31/18 07:13 Anisocytosis (manual) Present 01/31/18 07:13 PT 10.4 sec (9.0-12.0) 01/27/18 18:06 INR 1.1 (<1.2) 01/27/18 18:06 APTT 18.1 sec (22.0-30.0) L 01/27/18 18:06 Sodium 141 mmol/L (137-145) 01/31/18 07:13 Potassium 3.3 mmol/L (3.5-5.1) L 01/31/18 07:13 Chloride 108 mmol/L (98-107) H 01/31/18 07:13 Carbon Dioxide 29 mmol/L (22-30) 01/31/18 07:13 Anion Gap 4 mmol/L 01/31/18 07:13 BUN 10 mg/dL (7-17) 01/31/18 07:13 Creatinine 0.73 mg/dL (0.52-1.04) 01/31/18 07:13 Est GFR (CKD-EPI)AfAm >90 (>60 ml/min/1.73 sqM) 01/31/18 07:13 Est GFR (CKD-EPI)NonAf >90 (>60 ml/min/1.73 sqM) 01/31/18 07:13 Glucose 79 mg/dL (74-99) 01/31/18 07:13 POC Glucose (mg/dL) 183 mg/dL (75-99) H 01/31/18 17:07 POC Glu Wet Silk Hanger Maribel Hidalgo 01/31/18 17:07 Plasma Lactic Acid [place] 0.8 mmol/L (0.7-2.0) 01/27/18 22:40 Calcium 7.7 mg/dL (8.4-10.2) L 01/31/18 07:13 Magnesium 1.5 mg/dL (1.6-2.3) L 01/31/18 07:13 Total Bilirubin 1.0 mg/dL (0.2-1.3) 01/27/18 18:06 AST 9 U/L (14-36) L 01/27/18 18:06 ALT 21 U/L (9-52) 01/27/18 18:06 Alkaline Phosphatase 51 U/L (38-126) 01/27/18 18:06 Total Protein 5.6 g/dL (6.3-8.2) L 01/27/18 18:06 Albumin 3.1 g/dL (3.5-5.0) L 01/27/18 18:06 Urine Color Light Yellow 01/27/18 21:57 Urine Appearance Clear (Clear) 01/27/18 21:57 Urine pH 6.5 (5.0-8.0) 01/27/18 21:57 Ur Specific [place] 1.009 (1.001-1.035) 01/27/18 21:57 Urine Protein Trace (Negative) H 01/27/18 21:57 Urine Glucose (UA) 1+ (Negative) H 01/27/18 21:57 Urine Ketones Negative (Negative) 01/27/18 21:57 Urine Blood Trace (Negative) H 01/27/18 21:57 Urine Nitrite Negative (Negative) 01/27/18 21:57 Urine Bilirubin Negative (Negative) 01/27/18 21:57 Urine Urobilinogen <2.0 mg/dL (<2.0) 01/27/18 21:57 Ur Leukocyte Esterase Negative (Negative) 01/27/18 21:57 Urine RBC <1 /hpf (0-5) 01/27/18 21:57 Urine WBC 1 /hpf (0-5) 01/27/18 21:57 Ur Squamous Epith Cells 1 /hpf (0-4) 01/27/18 21:57 Urine Mucus Rare /hpf (None) H 01/27/18 21:57 Vancomycin Trough 17.1 ug/mL 01/31/18 07:13 C. difficile (EIA) Intrp Negative (Negative) 01/31/18 10:51 Blood Type A Positive 01/27/18 16:30 Blood Type Confirm A Positive 01/27/18 19:26 Blood Type Recheck CABO Indicated 01/27/18 16:30 Antibody Screen NEGATIVE 01/27/18 16:30 Crossmatch See Detail 01/27/18 16:30 Transfuse Platelets 01/30/18 01/30/18 09:02 Spec Expiration Date 01/30/2018 - 78101/27/18 16:30 Microbiology 01/27/18 22:40 Blood Blood Culture - Preliminary No Growth after 72 hours 01/27/18 21:57 Urine,Voided Urine Culture - Final Assessment and Plan (1) Acute myeloid leukemia Current Visit: Yes Status: Acute Code(s): C92.00 - ACUTE MYELOBLASTIC LEUKEMIA, NOT HAVING ACHIEVED REMISSION SNOMED Code(s): 59544195 (2) Febrile neutropenia Narrative/Plan: 53-year-old female presents to the emergency center feelingpoorly findings with fever and pancytopenia. patient admitted treated with antibiotic given fever and pancytopenia with mild mucositis. Nausea and emesis now improved. Hematology addressing growth factor needs. Cultures in progress. No obvious site of infection is noted. Patient today 01/30/2018 is having improvement, she is having no further fevers or chills. She is not having shortness of breath or cough. She's not having diarrhea or other acute difficulties. Is having significant amounts of hair loss from her scalp. She's had induction chemotherapy. We described that this is the first cycle of chemotherapy in attempts to be achieved remission. Once this occurs then plans can be made for either consolidation chemotherapy or bone marrow transplant. She will have counts checked in the morning and potentially can be discharged home tomorrow on Levaquin, Valtrex, and fluconazole. 01/31/2018 the patient is stable at this time without high-grade fevers or chills, but does have generalized weakness. She does have severe low magnesium and this is being supplemented. She has developed severe amounts of diarrhea possibly up to 10 times so far today. This was checked for C. diff and is negative. She likely has some mucositis from the chemotherapy resulting in the diarrhea. Some Imodium will be given to slow this up and to improve her comfort. With her pancytopenia she may not have probiotic therapy. When she has stabilization of her blood parameters and chemistries she will ready for discharge to home with the standard prophylaxis as noted before. Current Visit: Yes Status: Acute Code(s): D70.9 - NEUTROPENIA, UNSPECIFIED; R50.81 - FEVER PRESENTING WITH CONDITIONS CLASSIFIED ELSEWHERE SNOMED Code(s) : 930985847
[2018-01-31 20:03] LABS: Glucose,Whole Blood 145 mg/dL (75-99)
[2018-01-31] MEDS: SODIUM CHLORIDE 0.9% 1,000 ML IV SCH (21:05)
[2018-01-31] MEDS: MONTELUKAST 10 MG TAB PO SCH (21:06)
[2018-01-31] MEDS ORDERED: LOPERAMIDE 2 MG CAP PO PRN (22:00)
[2018-01-31] MEDS: ZOLPIDEM 10 MG TAB PO SCH (23:23)
[2018-02-01 00:15] LABS: HCT 23.6 % (34.0-46.0); HGB 7.8 gm/dL (11.4-16.0); MCH 30.6 pg (25.0-35.0); MCV 92.8 fL (80.0-100.0); Mean Platelet Volume 9.8; RBC 2.55 m/uL (3.80-5.40); RDW 13.6 % (11.5-15.5)
[2018-02-01 00:17] LABS: Platelet Count 13 k/uL (150-450); WBC 0.4 k/uL (3.8-10.6)
[2018-02-01] MEDS: CEFEPIME 2 GM in SODIUM CHLORIDE 0.9% 50 ML IVPB SCH ×3 (00:30→17:39)
[2018-02-01] MEDS: LEVOTHYROXINE 125 MCG TAB PO SCH (06:18)
[2018-02-01 07:11] LABS: HCT 23.1 % (34.0-46.0); MCH 32.3 pg (25.0-35.0); MCHC 34.8 g/dL (31.0-37.0); MCV 92.9 fL (80.0-100.0); Mean Platelet Volume 7.4; RBC 2.48 m/uL (3.80-5.40); RDW 13.8 % (11.5-15.5)
[2018-02-01 07:15] LABS: Platelet Count 16 k/uL (150-450); WBC 0.5 k/uL (3.8-10.6)
[2018-02-01 07:15] LABS: Glucose,Whole Blood 73 mg/dL (75-99)
[2018-02-01 07:17] LABS: Anion Gap 6 mmol/L; Blood Urea Nitrogen 9 mg/dL (7-17); Calcium 8.2 mg/dL (8.4-10.2); Carbon Dioxide 28 mmol/L (22-30); Chloride 107 mmol/L (98-107); Glucose 71 mg/dL (74-99); Magnesium 1.6 mg/dL (1.6-2.3); Potassium 3.6 mmol/L (3.5-5.1); Sodium 141 mmol/L (137-145)
[2018-02-01 08:39] LABS: Poikilocytosis (M) Present
[2018-02-01] MEDS: FLUTICASONE 50MCG/SPRAY NASAL 16GM EA NOSTRIL SCH (08:45)
[2018-02-01] MEDS: PANTOPRAZOLE 40 MG/10 ML VIAL IVP SCH ×2 (08:45→21:33)
[2018-02-01] MEDS: glipiZIDE 5 MG TAB PO SCH ×2 (08:45→21:08)
[2018-02-01] MEDS: METHYL SALICYLATE/MENTHOL CREAM 5 OZ TOPICAL SCH ×2 (08:46→21:10)
[2018-02-01] MEDS: METOPROLOL TARTRATE 50 MG TAB PO SCH ×2 (08:46→21:06)
[2018-02-01] MEDS: MAGNESIUM OXIDE 400 MG TAB PO SCH ×3 (08:46→21:07)
[2018-02-01] MEDS: POTASSIUM CHLORIDE ER 20 MEQ TAB.ER PO SCH ×2 (08:46→21:08)
[2018-02-01] MEDS: predniSONE 10 MG TAB PO SCH (08:46)
[2018-02-01] MEDS: FUROSEMIDE 20 MG TAB PO SCH ×2 (08:47→21:08)
[2018-02-01] MEDS: ESCITALOPRAM 10 MG TAB PO SCH (08:47)
[2018-02-01] MEDS: CYANOCOBALAMIN 500 MCG TAB PO SCH (08:47)
[2018-02-01] MEDS: ATORVASTATIN 20 MG TAB PO SCH (08:47)
[2018-02-01] MEDS: SALT AND SODA MOUTHWASH 1,000 ML PO SCH ×4 (08:47→21:09)
[2018-02-01] MEDS: ACYCLOVIR 200 MG CAP PO SCH ×2 (08:47→21:08)
[2018-02-01] MEDS: LORATADINE 10 MG TAB PO SCH (08:47)
[2018-02-01] MEDS: FLUCONAZOLE 100 MG TAB PO SCH (08:55)
[2018-02-01] MEDS: SYMBICORT 160-4.5 MCG INHALER INHALATION SCH ×2 (09:02→21:02)
[2018-02-01] MEDS: VANCOMYCIN 2,000 MG in SODIUM CHLORIDE 0.9% 500 ML IVPB SCH ×2 (09:30→21:03)
--- NOTE | 2018-02-01 09:40 | PN ---
PROGRESS NOTE DATE OF SERVICE: 02/01/2018. INTERVAL HISTORY: This 53-year-old woman was admitted with acute pancytopenia and neutropenic sepsis after chemotherapy, is being closely monitored. Patient had multiple transfusions of blood and as well as platelets. Today the platelets are 18, but patient had epistaxis at this time which is being controlled with local pressure. The patient also has some diarrhea. C difficile has been checked at this time. Dr. Moore and Hematology/Oncology following the patient closely. PAST MEDICAL HISTORY: Reviewed. REVIEW OF SYSTEMS: CARDIOVASCULAR: No angina. RESPIRATORY: As mentioned. GI: As mentioned earlier. : No dysuria. NERVOUS SYSTEM: No numbness or weakness. CURRENT MEDICATIONS: Reviewed and include: 1. Tylenol 650 q.4h p.r.n. 2. Zovirax 400 mg b.i.d. 3. Lipitor. 4. Symbicort. 5. Cefepime. 6. Lexapro. 7. Diflucan. 8. Imodium. 9. Multivitamins. 10.Protonix. 11.Vancomycin. PHYSICAL EXAM: Patient is alert, oriented x3. Pulse is 80, blood pressure 115/70, respiration 18, temperature 98.2, pulse ox 98% on 2 L. HEENT: Conjunctivae normal. Oral mucosa moist. NECK: No jugular venous distention. No carotid bruit. No lymph node enlargement. CARDIOVASCULAR: S1, S2. RESPIRATORY: Breath sounds diminished in the bases. Scattered rhonchi, no crackles. ABDOMEN: Soft, nontender. LEGS: No edema, no swelling. NERVOUS SYSTEM: No focal deficits. LAB STUDIES: WBC 0.2, hemoglobin 7.8, and platelet count is 14. C diff is negative. ASSESSMENT: 1. Severe pancytopenia as well as neutropenic fever and sepsis, present on admission, on broad-spectrum IV antibiotics. 2. Status post chemotherapy for acute myeloid leukemia. 3. Acute gastritis. 4. Diarrhea, possibly antibiotic related. 5. Epistaxis related to thrombocytopenia. 6. History of bronchial asthma. 7. Hypomagnesemia. 8. History of recent sepsis. 9. Hypertension. 10.Chronic hypoxic respiratory on home O2. 11.Hyperlipidemia. 12.Diabetes type 2. 13.Obesity. 14.Gastroesophageal reflux disease. 15.Chronic low back pain. 16.Hypothyroidism. 17.Anxiety and depression. RECOMMENDATIONS AND DISCUSSION: I recommend to continue current management and symptomatic treatment. Otherwise avoid oxygen. ENT evaluation and I would also recommend 5 units of platelets. Closely follow with Hematology/Oncology. C diff is negative. Potassium supplementation. Otherwise repeat labs will be ordered and also magnesium supplementation. Repeat magnesium. Guarded prognosis because of multiple complex medical issues. Further recommendations to follow. MMODL / IJN: [id number] /
[2018-02-01 12:09] LABS: Glucose,Whole Blood 87 mg/dL (75-99)
--- NOTE | 2018-02-01 16:28 | PN ---
PROGRESS NOTE DATE OF SERVICE: 02/01/2018 This 53-year-old woman was admitted with pancytopenia, neutropenic sepsis, is being closely monitored. The patient had epistaxis last night, which is improving at this time. The ENT has recommended and outpatient followup over the phone. No chest pain or palpitation. PHYSICAL EXAMINATION: On examination, alert and oriented x3. Pulse 84, blood pressure 100/53, respiration 20, temp 98.2, pulse ox 93% on 2 L. HEENT: Conjunctivae normal. NECK: No jugular venous distention. CARDIOVASCULAR: S1, S2 muffled. RESPIRATORY: Breath sounds diminished at the bases. No rhonchi, no crackles. Abdomen is soft, nontender. No mass palpable. LEGS: No edema, no swelling. NERVOUS SYSTEM: No focal deficits. LABS: WBC 0.5, hemoglobin is 8, platelets are 16 today. ASSESSMENT: 1. Severe pancytopenia as well as neutropenic fever and sepsis present on admission on broad-spectrum IV antibiotics. 2. Status post chemotherapy for acute myeloid leukemia. 3. Acute gastritis. 4. Diarrhea, possibly antibiotic related with Clostridium difficile negative. 5. Epistaxis related to thrombocytopenia. 6. History of bronchial asthma. 7. Hypomagnesemia. 8. History of recent sepsis. 9. Hypertension. 10.Chronic hypoxic respiratory failure on home O2. 11.Hyperlipidemia. 12.Diabetes mellitus type 2. 13.Obesity. 14.Gastroesophageal reflux disease. 15.Chronic low back pain. 16.Hypothyroidism. 17.Anxiety, depression. RECOMMENDATIONS AND DISCUSSION: Recommend to continue current medications, continue with monitoring and symptomatic treatment. Otherwise at this time I recommend continue the antibiotics and monitor closely and continue with p.r.n. Avoid oxygen and blowing of the nose. Further recommendations to follow. MMODL / IJN: [id number] / MTDD
--- NOTE | 2018-02-01 17:04 | P.PN ---
Subjective Progress Note Date: 02/01/18 Principal diagnosis: AML Chemotherapy induced pancyopenia Continues to be pancytopenic. Nose bleed last night, resolved. No further bleeding. Objective - Vital Signs Vital signs: Vital Signs Temp 97.7 F 02/01/18 14:19 Pulse 84 02/01/18 14:36 Resp 20 02/01/18 14:36 BP 122/73 02/01/18 14:19 Pulse Ox 92 L 02/01/18 14:19 Intake & Output 01/31/18 02/01/18 02/01/18 18:59 06:59 18:59 Intake Total 100 240 Balance 100 240 Weight 117 kg Intake: Oral 100 240 Other: Voiding Method Toilet Toilet Toilet # Voids 1 # Bowel Movements 3 - Exam General: In no acute distress. HEENT: Conjunctival pallor. Mucosa moist. Neck: Neck supple. Lungs: Normal respiratory effort. Heart: RRR. No LE edema. Abdomen: Soft, nontender. MSK: 4/4 strength in all 4 extremities. Neuro: Alert. Skin: No jaundice or rash. Psych: Appropriate affect. - Labs CBC & Chem 7: 02/01/18 06:35 02/01/18 06:35 Labs: Abnormal Lab Results - Last 24 Hours (Table) 01/31/18 01/31/18 02/01/18 Range/Units 17:07 20:00 00:01 WBC 0.4 L* (3.8-10.6) k/uL RBC 2.55 L (3.80-5.40) m/uL Hgb 7.8 L (11.4-16.0) gm/dL Hct 23.6 L (34.0-46.0) % Plt Count 13 L* (150-450) k/uL Glucose (74-99) mg/dL POC Glucose (mg/dL) 183 H 145 H (75-99) mg/dL Calcium (8.4-10.2) mg/dL 02/01/18 02/01/18 02/01/18 Range/Units 06:35 06:35 07:14 WBC 0.5 L* (3.8-10.6) k/uL RBC 2.48 L (3.80-5.40) m/uL Hgb 8.0 L (11.4-16.0) gm/dL Hct 23.1 L (34.0-46.0) % Plt Count 16 L* (150-450) k/uL Glucose 71 L (74-99) mg/dL POC Glucose (mg/dL) 73 L (75-99) mg/dL Calcium 8.2 L (8.4-10.2) mg/dL Microbiology - Last 24 Hours (Table) 01/27/18 22:40 Blood Culture - Preliminary Blood No Growth after 96 hours Assessment and Plan Assessment: AML Pancytopenia, due to chemotherapy Febrile neutropenia Plan: Ms. Brunner is a very pleasant 53-year-old female who is here for newly found AML , status post 7+3. Currently pancytopenic. She did have a fever earlier on, resolved. She is on antibiotics. Continues to have pancytopenia with WBC 0.5, hemoglobin 8, platelets 16. Had nosebleed last night which resolved after about half an hour. No further bleeding. For now continue with antibiotics and supportive transfusions for hemoglobin less than 7 or platelets less than 10 or active bleeding. We'll continue to monitor.
[2018-02-01 17:43] LABS: Glucose,Whole Blood 129 mg/dL (75-99)
[2018-02-01 20:27] LABS: Glucose,Whole Blood 121 mg/dL (75-99)
[2018-02-01] MEDS: MONTELUKAST 10 MG TAB PO SCH (21:08)
[2018-02-01] MEDS: SODIUM CHLORIDE 0.9% 1,000 ML IV SCH (21:10)
[2018-02-01] MEDS: ZOLPIDEM 10 MG TAB PO SCH (22:33)
[2018-02-02] MEDS: CEFEPIME 2 GM in SODIUM CHLORIDE 0.9% 50 ML IVPB SCH ×3 (00:10→17:54)
[2018-02-02] MEDS: LEVOTHYROXINE 125 MCG TAB PO SCH (06:44)
[2018-02-02] MEDS ORDERED: OXYMETAZOLINE 0.05% NASL SPRAY 1 SPRAY BOTTLE NASAL PRN (06:56)
[2018-02-02 07:10] LABS: HCT 21.6 % (34.0-46.0); HGB 7.3 gm/dL (11.4-16.0); MCH 31.3 pg (25.0-35.0); Mean Platelet Volume 9.4; RBC 2.35 m/uL (3.80-5.40); RDW 13.6 % (11.5-15.5)
[2018-02-02 07:14] LABS: Platelet Count 11 k/uL (150-450); WBC 0.4 k/uL (3.8-10.6)
[2018-02-02 07:23] LABS: Glucose,Whole Blood 98 mg/dL (75-99)
[2018-02-02 07:25] LABS: Anion Gap 6 mmol/L; Blood Urea Nitrogen 7 mg/dL (7-17); Calcium 8.3 mg/dL (8.4-10.2); Carbon Dioxide 27 mmol/L (22-30); Chloride 109 mmol/L (98-107); Glucose 91 mg/dL (74-99); Magnesium 1.4 mg/dL (1.6-2.3); Potassium 3.7 mmol/L (3.5-5.1); Sodium 142 mmol/L (137-145)
[2018-02-02] MEDS: FLUTICASONE 50MCG/SPRAY NASAL 16GM EA NOSTRIL SCH (07:30)
[2018-02-02] MEDS: SYMBICORT 160-4.5 MCG INHALER INHALATION SCH ×2 (07:32→20:53)
[2018-02-02] MEDS: FLUCONAZOLE 100 MG TAB PO SCH (07:33)
[2018-02-02] MEDS: LORATADINE 10 MG TAB PO SCH (07:33)
[2018-02-02] MEDS: predniSONE 10 MG TAB PO SCH (07:33)
[2018-02-02] MEDS: METOPROLOL TARTRATE 50 MG TAB PO SCH ×2 (07:33→20:40)
[2018-02-02] MEDS: MAGNESIUM OXIDE 400 MG TAB PO SCH ×3 (07:33→21:59)
[2018-02-02] MEDS: FUROSEMIDE 20 MG TAB PO SCH ×2 (07:33→20:39)
[2018-02-02] MEDS: POTASSIUM CHLORIDE ER 20 MEQ TAB.ER PO SCH ×2 (07:34→20:40)
[2018-02-02] MEDS: ESCITALOPRAM 10 MG TAB PO SCH (07:34)
[2018-02-02] MEDS: PANTOPRAZOLE 40 MG/10 ML VIAL IVP SCH ×2 (07:34→20:40)
[2018-02-02] MEDS: SALT AND SODA MOUTHWASH 1,000 ML PO SCH ×4 (07:34→21:59)
[2018-02-02] MEDS: glipiZIDE 5 MG TAB PO SCH ×2 (07:35→20:40)
[2018-02-02] MEDS: METHYL SALICYLATE/MENTHOL CREAM 5 OZ TOPICAL SCH ×2 (07:35→20:40)
[2018-02-02] MEDS: CYANOCOBALAMIN 500 MCG TAB PO SCH (07:35)
[2018-02-02] MEDS: ACYCLOVIR 200 MG CAP PO SCH ×2 (07:35→20:39)
[2018-02-02 08:15] LABS: Poikilocytosis (M) Present
[2018-02-02] MEDS: ATORVASTATIN 20 MG TAB PO SCH (08:50)
[2018-02-02] MEDS: VANCOMYCIN 2,000 MG in SODIUM CHLORIDE 0.9% 500 ML IVPB SCH ×2 (08:52→21:54)
[2018-02-02] MEDS: MAGNESIUM SULFATE-D5W PMX 1 GM in DEXTROSE/WATER 1 100ML.BAG IVPB SCH ×2 (11:54→13:31)
[2018-02-02 12:14] LABS: Glucose,Whole Blood 173 mg/dL (75-99)
--- NOTE | 2018-02-02 16:23 | PN ---
PROGRESS NOTE DATE OF SERVICE: 02/02/2018. INTERVAL HISTORY: This 53-year-old woman was admitted with pancytopenia also had significant thrombocytopenia and epistaxis. With conservative measures the patient improved significantly. Patient complained of some blood clot in the right nose, but however the patient would prefer to see patient's own ENT in the outpatient setting. No active bleeding noted. No chest pain. No palpitation. The platelets are 11 today. PHYSICAL EXAM: Alert and oriented x3. Pulse is 89, blood pressure 130/60, respiration 18, temperature 97.8, pulse ox 98% on 2 L. HEENT: Conjunctivae normal. Oral mucosa moist. NECK: No jugular venous distention. No carotid bruit. No lymph node enlargement. CARDIOVASCULAR: S1, S2. RESPIRATORY: Breath sounds diminished in the bases. A few rhonchi. No crackles. ABDOMEN: Soft, nontender. No mass palpable. LEGS: No edema. No swelling. NERVOUS SYSTEM: No focal deficits. LABS: WBC 0.8, hemoglobin 7.8, platelets 11, magnesium 1.4. ASSESSMENT: 1. Severe pancytopenia as well as neutropenic fever and sepsis, present on admission, on broad-spectrum IV antibiotics. 2. Status post chemotherapy for acute myeloid leukemia. 3. Acute gastritis. 4. Diarrhea, possibly antibiotic related with C difficile negative. 5. Epistaxis related to thrombocytopenia. 6. History of bronchial asthma. 7. Hypomagnesemia. 8. History of recent sepsis. 9. Hypertension. 10.Chronic hypoxic respiratory failure on home O2. 11.Hyperlipidemia. 12.Diabetes type 2. 13.Obesity. 14.Gastroesophageal reflux disease. 15.Chronic low back pain. 16.Hypothyroidism. 17.Anxiety, depression. RECOMMENDATIONS AND DISCUSSION: I recommend to continue current medications monitor symptomatic treatment. Otherwise at this time I recommend to continue with broad-spectrum IV antibiotics. Continue the rest of medication. Monitor lytes. Repeat labs. Guarded prognosis. Further recommendations to follow. MMODL / IJN: [id number] /
[2018-02-02 16:48] VITALS: RESP 16
[2018-02-02 17:29] LABS: Glucose,Whole Blood 183 mg/dL (75-99)
[2018-02-02 20:31] LABS: Glucose,Whole Blood 143 mg/dL (75-99)
[2018-02-02] MEDS: MONTELUKAST 10 MG TAB PO SCH (20:40)
[2018-02-02] MEDS: SODIUM CHLORIDE 0.9% 1,000 ML IV SCH (21:09)
[2018-02-02] MEDS: ZOLPIDEM 10 MG TAB PO SCH (21:59)
[2018-02-03] MEDS: CEFEPIME 2 GM in SODIUM CHLORIDE 0.9% 50 ML IVPB SCH ×2 (00:55→08:19)
[2018-02-03 05:55] VITALS: BP 114/56; PULSE 76; TEMP 99.2
[2018-02-03] MEDS: LEVOTHYROXINE 125 MCG TAB PO SCH (06:11)
[2018-02-03 07:15] LABS: Glucose,Whole Blood 106 mg/dL (75-99)
[2018-02-03] MEDS: SYMBICORT 160-4.5 MCG INHALER INHALATION SCH (07:45)
[2018-02-03] MEDS: ATORVASTATIN 20 MG TAB PO SCH (08:19)
[2018-02-03] MEDS: ACYCLOVIR 200 MG CAP PO SCH (08:19)
[2018-02-03] MEDS: CYANOCOBALAMIN 500 MCG TAB PO SCH (08:20)
[2018-02-03] MEDS: ESCITALOPRAM 10 MG TAB PO SCH (08:20)
[2018-02-03] MEDS: FLUTICASONE 50MCG/SPRAY NASAL 16GM EA NOSTRIL SCH (08:23)
[2018-02-03] MEDS: FUROSEMIDE 20 MG TAB PO SCH (08:23)
[2018-02-03] MEDS: FLUCONAZOLE 100 MG TAB PO SCH (08:23)
[2018-02-03] MEDS: METOPROLOL TARTRATE 50 MG TAB PO SCH (08:24)
[2018-02-03] MEDS: MAGNESIUM OXIDE 400 MG TAB PO SCH (08:24)
[2018-02-03] MEDS: glipiZIDE 5 MG TAB PO SCH (08:24)
[2018-02-03] MEDS: LORATADINE 10 MG TAB PO SCH (08:24)
[2018-02-03] MEDS: predniSONE 10 MG TAB PO SCH (08:25)
[2018-02-03] MEDS: METHYL SALICYLATE/MENTHOL CREAM 5 OZ TOPICAL SCH (08:25)
[2018-02-03] MEDS: POTASSIUM CHLORIDE ER 20 MEQ TAB.ER PO SCH (08:25)
[2018-02-03] MEDS: SALT AND SODA MOUTHWASH 1,000 ML PO SCH ×2 (08:25→12:59)
[2018-02-03] MEDS: PANTOPRAZOLE 40 MG/10 ML VIAL IVP SCH (08:25)
[2018-02-03 09:02] LABS: HCT 23.4 % (34.0-46.0); MCH 30.4 pg (25.0-35.0); MCV 89.5 fL (80.0-100.0); Mean Platelet Volume 9.9; RBC 2.62 m/uL (3.80-5.40); RDW 13.5 % (11.5-15.5)
[2018-02-03 09:03] LABS: Platelet Count 18 k/uL (150-450); WBC 0.3 k/uL (3.8-10.6)
[2018-02-03] MEDS: VANCOMYCIN 2,000 MG in SODIUM CHLORIDE 0.9% 500 ML IVPB SCH (09:45)
[2018-02-03 11:13] LABS: Glucose,Whole Blood 128 mg/dL (75-99)
--- NOTE | 2018-02-03 12:28 | P.PN ---
Subjective Progress Note Date: 02/03/18 Principal diagnosis: AML, pancytopenia Pt seen in f/u, she feels good today and wants to go home, she is eating and drinking, no oral irritation, nausea, SOB, mild weakness, no diarrhea, constipation, bleeding, she has left the scab in her right nare, ambulating independently Objective - Vital Signs Vital signs: Vital Signs Temp 99.2 F 02/03/18 05:00 Pulse 76 02/03/18 05:00 Resp 16 02/03/18 05:00 BP 114/56 02/03/18 05:00 Pulse Ox 90 L 02/03/18 05:00 Intake & Output 02/02/18 02/03/18 02/03/18 18:59 06:59 18:59 Intake Total 240 1240 Balance 240 1240 Intake: Intake, IV Titration 680 Amount Cefepime 2 gm In Sodium 100 Chloride 0.9% 50 ml @ 100 mls/hr IVPB Q8HR [facility] Rx# :[id number] Sodium Chloride 0.9% 1, 80 000 ml @ 20 mls/hr IV . Q24H [facility] Rx#:[id number] Vancomycin 2,000 mg In 500 Sodium Chloride 0.9% 500 ml @ 167 mls/hr IVPB Q12HR [facility] Rx#:[id number] Oral 240 560 Other: Voiding Method Toilet Toilet # Voids 2 2 # Bowel Movements 1 - Constitutional General appearance: Present: cooperative, no acute distress, obese - Respiratory Details: respirations even and unlabored - Neurologic Neurologic: Present: CNII-XII intact - Musculoskeletal Musculoskeletal: Present: strength equal bilaterally - Psychiatric Psychiatric: Present: A&O x's 3, appropriate affect, intact judgment & insight - Labs CBC & Chem 7: 02/03/18 07:04 02/02/18 06:51 Labs: Abnormal Lab Results - Last 24 Hours (Table) 02/02/18 02/02/18 02/03/18 Range/Units 17:28 20:30 07:04 WBC 0.3 L* (3.8-10.6) k/uL RBC 2.62 L (3.80-5.40) m/uL Hgb 8.0 L (11.4-16.0) gm/dL Hct 23.4 L (34.0-46.0) % Plt Count 18 L* D (150-450) k/uL POC Glucose (mg/dL) 183 H 143 H (75-99) mg/dL 02/03/18 02/03/18 Range/Units 07:11 11:05 WBC (3.8-10.6) k/uL RBC (3.80-5.40) m/uL Hgb (11.4-16.0) gm/dL Hct (34.0-46.0) % Plt Count (150-450) k/uL POC Glucose (mg/dL) 106 H 128 H (75-99) mg/dL Microbiology - Last 24 Hours (Table) 01/27/18 22:40 Blood Culture - Final Blood No Growth after 144 hours Assessment and Plan (1) Acute myeloid leukemia Narrative/Plan: SP 7+3 induction. She meets with Dr. Atkinson tomorrow to review genetics of her leukemia which will guide decision making. Favorable genetics, pt will continue with consolidation chemo then go on monitoring. If unfavorable then plan for transplant may need to be considered. >30 min conversation about diagnosis, prognosis, treatment and side effects. All pt questions to her satisfaction and the best of my ability. Current Visit: Yes Status: Acute Priority: High Code(s): C92.00 - ACUTE MYELOBLASTIC LEUKEMIA, NOT HAVING ACHIEVED REMISSION SNOMED Code(s): 03224608 (2) Pancytopenia Current Visit: Yes Status: Acute Priority: High Code(s): D61.818 - OTHER PANCYTOPENIA SNOMED Code(s): 337846419 Plan: Did review case with Attending. Pt is ok from a Hem/Onc standpoint to be discharged once cleared by Attending. Time with Patient: Greater than 30
--- NOTE | 2018-02-03 15:00 | DS ---
DISCHARGE SUMMARY DATE OF SERVICE: 02/03/2018. FINAL DIAGNOSES: 1. Severe pancytopenia as well as neutropenic fever and sepsis present on admission status post broad-spectrum IV antibiotics, status post chemotherapy for acute myeloid leukemia. 2. Acute gastritis. 3. Diarrhea, possibly antibiotic related with C-difficile negative. 4. Epistaxis related thrombocytopenia, improved. 5. History of bronchial asthma. 6. Hypomagnesemia. 7. History of recent sepsis. 8. Hypertension. 9. Chronic hypoxic respiratory failure on home O2. 10.Hyperlipidemia. 11.Diabetes type 2. 12.Obesity. 13.GERD. 14.Chronic low back pain. 15.Hypothyroidism. 16.Anxiety, depression. DISCHARGE DISPOSITION: The patient is being discharged in stable condition with guarded prognosis. HISTORY OF PRESENT ILLNESS: This 53-year-old woman with a past medical history of multiple medical problems admitted with pancytopenia and features of sepsis, treated with IV antibiotics, improved significantly. The counts also improved and Hematology/Oncology recommended discharge and outpatient followup. During the hospitalization, patient also received multiple units of packed cells and platelets also. The patient also had an episode of epistaxis which spontaneously resolved. The patient would like to follow up the patient with an ENT physician. Currently the WBC 8.3 and hemoglobin 8, platelets 18. On exam, vitals are stable. Cardiovascular: S1, S2. Abdomen soft. Nervous system: No focal deficits. DISCHARGE ADVICE AND MEDICATIONS: 1. Diet is cardiac diet. 2. Activity limited until followup. 3. Follow up with Dr. Soto in 2-3 days. 4. Follow up with Dr. Atkinson as advised. MEDICATIONS ARE: As follows: 1. Ventolin p.r.n. 2. Lipitor 20 mg p.o. daily. 3. Symbicort 1 to 2 puffs b.i.d. 4. BuSpar 5 mg p.o. b.i.d. 5. Calcium with vitamin D 1 p.o. daily. 6. Lexapro 30 mg q.a.m. 7. Iron sulfate 320 mg p.o. daily. 8. Flonase 1 spray daily. 9. Lasix 20 mg p.o. b.i.d. 10.Neurontin 300 mg p.o. t.i.d. 11.DuoNeb q.i.d. and p.r.n. 12.Synthroid 125 mcg p.o. daily. 13.Claritin 10 mg p.o. daily. 14.Lopressor 50 mg p.o. b.i.d. 15.Singular 10 mg q.h.s. 16.Prilosec 20 mg b.i.d. 17.Klor-Con 20 mEq p.o. b.i.d. 18.Prednisone taper as before. 19.Ambien 10 mg q.h.s. 20.Acyclovir 400 mg b.i.d. 21.Vitamin B12 1000 mg p.o. daily. 22.Diflucan 100 mg p.o. daily. 23.Glucotrol 5 mg p.o. b.i.d. 24.Levaquin 500 mg p.o. daily for 5 days. 25.Zofran 4 mg q.6h p.r.n. 26.Ultram 50 mg q.6h p.r.n. Once again, the patient is being discharged in stable condition with guarded prognosis. Total time taken 35 minutes. MARK / MAGEN: [id number] /
== END 2018-02-03 14:17 | disposition home health service (06) | DRG 871 ==
LOC: EC 17:04 → 5MS5E 20:00 → 5ONC 01-29 10:55
PROVIDERS: ADMIT Hospitalist; ATTEND Hospitalist
PROC: 30233N1 Transfusion of Nonautologous Red Blood Cells into Peripheral Vein, Percutaneous Approach (ICD-10-PCS; 2018-01-27)
PROC: 30233R1 Transfusion of Nonautologous Platelets into Peripheral Vein, Percutaneous Approach (ICD-10-PCS; principal; 2018-01-28)
DX: A41.9 Sepsis, unspecified organism (principal); D61.810 Antineoplastic chemotherapy induced pancytopenia; C92.00 Acute myeloblastic leukemia, not having achieved remission; J96.11 Chronic respiratory failure with hypoxia; Z68.42 Body mass index [BMI] 45.0-49.9, adult; E11.40 Type 2 diabetes mellitus with diabetic neuropathy, unspecified; E66.01 Morbid (severe) obesity due to excess calories; D70.3 Neutropenia due to infection; E83.42 Hypomagnesemia; K76.0 Fatty (change of) liver, not elsewhere classified; R50.81 Fever presenting with conditions classified elsewhere; T45.1X5A Adverse effect of antineoplastic and immunosuppressive drugs, initial encounter; K12.31 Oral mucositis (ulcerative) due to antineoplastic therapy; K29.00 Acute gastritis without bleeding; R04.0 Epistaxis; K21.9 Gastro-esophageal reflux disease without esophagitis; E86.0 Dehydration; J45.909 Unspecified asthma, uncomplicated; I10 Essential (primary) hypertension; E78.5 Hyperlipidemia, unspecified; G89.29 Other chronic pain; E03.9 Hypothyroidism, unspecified; G47.00 Insomnia, unspecified; M54.5 Low back pain; F32.9 Major depressive disorder, single episode, unspecified; R19.7 Diarrhea, unspecified; F41.9 Anxiety disorder, unspecified; Z99.81 Dependence on supplemental oxygen; Z79.51 Long term (current) use of inhaled steroids; Z79.84 Long term (current) use of oral hypoglycemic drugs; Z79.890 Hormone replacement therapy; Z79.899 Other long term (current) drug therapy; Z87.891 Personal history of nicotine dependence; Z98.51 Tubal ligation status; Z98.42 Cataract extraction status, left eye; Z98.41 Cataract extraction status, right eye; Z96.1 Presence of intraocular lens; Z88.0 Allergy status to penicillin; Z80.9 Family history of malignant neoplasm, unspecified
CPT/HCPCS: 36415; 71046; 80048; 80053; 80202; 81001; 83605; 83735; 85025; 85610; 85730; 86850; 86900; 86901; 86920; 87040; 87086; 87324; 94640; 94760; 96365; 96375; 99284

== ENCOUNTER 2018-03-10 07:48 | Inpatient (IN) | payer OTHER ==
[2018-03-10] MEDS ORDERED: SALT AND SODA MOUTHWASH 1,000 ML PO PRN (08:00)
[2018-03-10] MEDS ORDERED: DEXAMETHASONE SOD PHOSPHATE 10 MG/ML 1 ML VIAL IV SCH (09:00)
[2018-03-10] MEDS ORDERED: ONDANSETRON 16 MG in SODIUM CHLORIDE 0.9% 50 ML IVPB SCH (09:00)
[2018-03-10] MEDS: SODIUM CHLORIDE 0.9% 1,000 ML IV SCH ×4 (09:08→20:35)
[2018-03-10 09:42] LABS: Basophils # (A) 0.1 k/uL (0-0.2); Basophils % (A) 1 %; Eosinophils # (A) 0.7 k/uL (0-0.7); Eosinophils % (A) 11 %; HCT 30.9 % (34.0-46.0); HGB 10.1 gm/dL (11.4-16.0); Hypochromasia Moderate; Lymphocytes # (A) 0.9 k/uL (1.0-4.8); Lymphocytes % (A) 14 %; MCHC 32.7 g/dL (31.0-37.0); MCV 94.9 fL (80.0-100.0); Mean Platelet Volume 7.6; Monocytes # (A) 0.6 k/uL (0-1.0); Monocytes % (A) 9 %; Neutrophils # (A) 3.9 k/uL (1.3-7.7); Neutrophils % (A) 63 %; Platelet Count 126 k/uL (150-450); RBC 3.25 m/uL (3.80-5.40); RDW 15.6 % (11.5-15.5); WBC 6.2 k/uL (3.8-10.6)
[2018-03-10 09:56] LABS: ALT 27 U/L (9-52); AST 25 U/L (14-36); Albumin 3.6 g/dL (3.5-5.0); Alkaline Phosphatase 78 U/L (38-126); Anion Gap 12 mmol/L; Blood Urea Nitrogen 6 mg/dL (7-17); Calcium 8.9 mg/dL (8.4-10.2); Carbon Dioxide 25 mmol/L (22-30); Chloride 107 mmol/L (98-107); Glucose 140 mg/dL (74-99); Potassium 3.5 mmol/L (3.5-5.1); Sodium 144 mmol/L (137-145); Total Protein 6.4 g/dL (6.3-8.2); Uric Acid 6.5 mg/dL (3.7-7.4)
[2018-03-10] MEDS ORDERED: ALBUTEROL NEBULIZED 2.5 MG/3 ML INHALATION PRN (10:09)
[2018-03-10] MEDS ORDERED: traMADol 50 MG TAB PO PRN (10:09)
[2018-03-10] MEDS ORDERED: IPRATROPIUM-ALBUTEROL 3 ML NEB INHALATION PRN (10:09)
[2018-03-10] MEDS ORDERED: ONDANSETRON 4 MG TAB PO PRN (10:09)
--- NOTE | 2018-03-10 10:56 | P.CONS ---
History of Present Illness - Reason for Consult Determinations regarding diabetes mellitus hypertensive medications. - History of Present Illness Patient is a pleasant 53-year-old female being admitted for chemotherapy, elective admission, second cycle with cytarabine for acute myeloid leukemia. Patient the PICC line is nonfunctional will be replaced. Patient denied any fever chills nausea vomiting abdominal pain medicine was consulted for management of type 2 diabetes mellitus for which patient was on sulfonylureas which she is not taking at this point of time. Management of hypertension and other medical problems. Patient denied any pain Review of Systems REVIEW OF SYSTEMS: CONSTITUTIONAL: No fever, no malaise, no fatigue. HEENT: No recent visual problems or hearing problems. Denied any sore throat. CARDIOVASCULAR: No chest pain, orthopnea, PND, no palpitations, no syncope. PULMONARY: No shortness of breath, no cough, no hemoptysis. GASTROINTESTINAL: No diarrhea, no nausea, no vomiting, no abdominal pain. Normoactive bowel sounds. NEUROLOGICAL: No headaches, no weakness, no numbness. HEMATOLOGICAL: Denies any bleeding or petechiae. GENITOURINARY: Denies any burning micturition, frequency, or urgency. MUSCULOSKELETAL/RHEUMATOLOGICAL: Denies any joint pain, swelling, or any muscle pain. ENDOCRINE: Denies any polyuria or polydipsia. The rest of the 14-point review of systems is negative. Past Medical History Past Medical History: Asthma, Blood Disorder, Cancer, Diabetes Mellitus, GERD/ Reflux, Hyperlipidemia, Hypertension, Thyroid Disorder Additional Past Medical History / Comment(s): cancer(aml- had chemo last saturday.pt stated she is very weak not able to ambulate without assist of 2. Chronic back pain, neuropathy L hand, L hand 2nd and 3rd fingers are "locking up " at times, carpal tunnel right hand, hypothyroid, iron deficiency anemia, insomnia, sinus problems;diverticulitis, leukemia. History of Any Multi-Drug Resistant Organisms: None Reported Past Surgical History: Adenoidectomy, Heart Catheterization, Tonsillectomy, Tubal Ligation Additional Past Surgical History / Comment(s): carpel tunnel right wrist, bilateral cataract removal, bilateral laser eye surgery/lens implants, colonoscopy, epidural injections with last time being 1 week ago, PICC line, bronchoscopy, bome marrow bx. Past Anesthesia/Blood Transfusion Reactions: No Reported Reaction Smoking Status: Never smoker - Past Family History Mother Family Medical History: Cancer Father Family Medical History: No Reported History Additional Family Medical History / Comment(s): Father is living. Medications and Allergies Home Medications Medication Instructions Recorded Confirmed Type Escitalopram Oxalate [Lexapro] 30 mg PO QAM 05/04/16 03/10/18 History Ferrous Sulfate [Iron (65 MG 325 mg PO DAILY 05/04/16 03/10/18 History Elemental)] Omeprazole [PriLOSEC] 20 mg PO AC-BID 05/04/16 03/10/18 History Atorvastatin [Lipitor] 20 mg PO DAILY 10/26/16 03/10/18 History Fluticasone Nasal [place] [Flonase 1 spray EA NOSTRIL DAILY 10/26/16 03/10/18 History Nasal [place]] Loratadine [Claritin] 10 mg PO DAILY 10/26/16 03/10/18 History Zolpidem [Ambien] 10 mg PO HS 10/26/16 03/10/18 History Furosemide [Lasix] 20 mg PO BID 08/19/17 03/10/18 History Levothyroxine Sodium [Synthroid] 125 mcg PO DAILY 08/19/17 03/10/18 History Potassium Chloride [Klor-Con 20] 20 meq PO BID 08/19/17 03/10/18 History Calcium Carbonate/Vitamin D3 1 tab PO DAILY 10/08/17 03/10/18 History [Calcium 600-Vit D3 400 Caplet] Metoprolol Tartrate [Lopressor] 50 mg PO BID 10/08/17 03/10/18 History Montelukast [Singulair] 10 mg PO HS 10/08/17 03/10/18 History Albuterol Inhaler [Ventolin Hfa 2 puff INHALATION RT-QID PRN 10/29/17 03/10/18 History Inhaler] Budesonide/Formoterol Fumarate 2 puff INHALATION RT-BID 10/29/17 03/10/18 History [Symbicort 160-4.5 Mcg Inhaler] Ipratropium-Albuterol Nebulize 3 ml INHALATION RT-QID PRN 10/29/17 03/10/18 History [Duoneb 0.5 mg-3 mg/3 ml Soln] Cyanocobalamin (Vitamin B-12) 1,000 mcg PO DAILY 90 Days #90 01/08/18 03/10/18 Rx [Vitamin B-12] tablet Ondansetron [Zofran] 4 mg PO Q6HR PRN #45 tab 01/24/18 03/10/18 Rx Allergies Allergy/AdvReac Type Severity Reaction Status Date / Time Penicillins Allergy Rash/Hives Verified 03/10/18 09:42 Physical Exam Vitals: Vital Signs Temp Pulse Resp BP Pulse Ox 03/10/18 08:53 98.2 F 83 16 130/82 97 Intake and Output 03/09/18 03/10/18 03/10/18 22:59 06:59 14:59 Other: Weight 125 kg PHYSICAL EXAMINATION: GENERAL: The patient is alert and oriented x3, not in any acute distress. Obese HEENT: Pupils are round and equally reacting to light. EOMI. No scleral icterus. No conjunctival pallor. Normocephalic, atraumatic. No pharyngeal erythema. No thyromegaly. CARDIOVASCULAR: S1 and S2 present. No murmurs, rubs, or gallops. PULMONARY: Chest is clear to auscultation, no wheezing or crackles. ABDOMEN: Soft, nontender, nondistended, normoactive bowel sounds. No palpable organomegaly. MUSCULOSKELETAL: No joint swelling or deformity. EXTREMITIES: No cyanosis, clubbing, or pedal edema. NEUROLOGICAL: Gross neurological examination did not reveal any focal deficits. SKIN: No rashes. Results CBC & Chem 7: 03/10/18 09:24 03/10/18 09:24 Labs: Abnormal Lab Results - Last 24 Hours (Table) 03/10/18 03/10/18 Range/Units 09:24 09:24 RBC 3.25 L (3.80-5.40) m/uL Hgb 10.1 L (11.4-16.0) gm/dL Hct 30.9 L (34.0-46.0) % RDW 15.6 H (11.5-15.5) % Plt Count 126 L (150-450) k/uL Lymphocytes # 0.9 L (1.0-4.8) k/uL BUN 6 L (7-17) mg/dL Glucose 140 H (74-99) mg/dL Assessment and Plan Plan: -Acute myeloid leukemia: Admitted for chemotherapy at [facility] with cytarabine and patient will be started on 1 25 mL of normal saline basic labs will be obtained medications are not very Saturday at once medications are verified patient will be started on appropriate medications -History of asthma not in acute exacerbation -Obesity -Hypertension -Hyperlipidemia -Hypothyroidism -Anxiety depression -Type 2 diabetes mellitus: Patient is not using any of her oral hypoglycemic agents will monitor her blood sugars and hemoglobin A1c. Will use sliding scale for now. For her chronic medical problems appropriate medications will be resumed once her home medications are verified
[2018-03-10] MEDS ORDERED: SODIUM CHLORIDE 0.9% IV SCH ×2 (11:00→23:00)
[2018-03-10] MEDS ORDERED: CYTARABINE IV SCH ×2 (11:00→23:00)
[2018-03-10] MEDS: prednisoLONE ACETATE 1% OPHTH DROPS 5 ML BTL BOTH EYES SCH ×4 (13:07→22:35)
[2018-03-10] MEDS: METOPROLOL TARTRATE 50 MG TAB PO SCH ×3 (13:21→20:38)
--- NOTE | 2018-03-10 14:21 | IR ---
PICC LINE PLACEMENT: HISTORY: Infection requiring long-term antibiotic therapy PROCEDURE: Ultrasound and fluoroscopic guidance of PICC line placement. COMPLICATIONS: None ANESTHESIA: 1. 1% Lidocaine locally. FINDINGS/TECHNIQUE: The procedure was explained to the patient. The risks, complications, benefits and alternatives were discussed and any questions were answered. Informed consent was obtained. The patient was placed supine on the fluoroscopic table and prepped and draped in the usual sterile fash ion. Utilizing a 21 gauge needle and sonographic and fluoroscopic guidance, access in the right bas ilic vein was achieved and there is placement of a 0.018 guidewire. The vein is patent. A 5-F. duval th was placed over the guidewire. The guidewire and dilator were removed and a 5-F. Double lumen PIC C line was placed through the sheath with the tip at the level of the SVC. The sheath was removed, t he catheter was flushed and sutured into position. The patient was stable throughout the procedure a nd remained stable upon discharge from the Department of Radiology. The vein puncture was patent under ultrasound. A jimenez scale image was obtained to document patency of the vein punctured. All elements of the maximal barrier technique were utilized. FLUOROSCOPY TIME: 0.2 minute, one image submitted IMPRESSION: Successful PICC double lumen line placement under ultrasound and fluoroscopic guidance.
[2018-03-10] MEDS: SALT AND SODA MOUTHWASH 1,000 ML PO SCH ×2 (14:44→17:36)
[2018-03-10] MEDS ORDERED: GABAPENTIN 300 MG CAP PO SCH (16:00)
[2018-03-10 17:04] LABS: Glucose,Whole Blood 182 mg/dL (75-99)
[2018-03-10] MEDS ORDERED: glipiZIDE 5 MG TAB PO SCH (17:30)
[2018-03-10] MEDS: PANTOPRAZOLE 40 MG TABLET PO SCH (17:36)
[2018-03-10] MEDS ORDERED: MAGNESIUM HYDROXIDE 2,400 MG/10 ML CUP PO PRN (18:16)
[2018-03-10] MEDS ORDERED: LOPERAMIDE 2 MG CAP PO PRN (18:16)
--- NOTE | 2018-03-10 18:16 | P.HPIM ---
History of Present Illness H&P Date: 03/10/18 Chief Complaint: AML, consolidation chemotherapy Ms. Brunner is a very pleasant female pt of Dr. Atkinson who was found to be lekopenic on routine blood work 11/14/17, WBC was 2.8, only mild neutropenia, MCV elevated at 103.2, CBC and CMP otherwise unremarkable, peripheral smear did not reveal any suspicious morphology. CT AP 10/29/17 was done due to abdominal pain which revealed fatty liver and diverticulitis. 01/10/18 bone marrow biopsy was done, positive for AML, cytogenetics and FISH were positive for inversion 16. She had induction inpatient with 7+3 protocol on 01/16/18, repeat bone marrow biopsy on 02/13/18 revealed no residual leukemia! 0.6-2% blasts, normal cytogenetics. Induction was complicated by neutropenic sepsis, pneumonia, ventilator dependent respiratory failure, she has fully recovered. She was evaluated by Dr. Johnston, no need for allogenic transplant due to favorable finding of inversion of 16. She is admitted for 1st consolidation with cytarabine. [facility] PICC line is going to be evaluated as it appears to be dislodged, too much line is visible. Pt denies fever, oral irritation, appetite is good, no nausea, BABAR, chest pain, abd pain, indigestion, changes in bowel or bladder habits, swelling, rash or pain, independently ambulatory. Review of Systems 14 point ROS as stated in HPI Past Medical History Past Medical History: Asthma, Blood Disorder, Cancer, Diabetes Mellitus, GERD/ Reflux, Hyperlipidemia, Hypertension, Thyroid Disorder Additional Past Medical History / Comment(s): Leukopenia noted on routine labwork-diagnosed with AML 12/2017 with induction chemo complicated by neutropenic sepsis/pneumonia/respiratory failure and was intubated, chronic bronchial asthma, NIDDM type II, chronic back pain, neuropathy L hand, L hand 2nd and 3rd fingers are "locking up" at times, carpal tunnel right hand, hypothyroid, iron deficiency anemia, insomnia, sinus problems;diverticulitis. History of Any Multi-Drug Resistant Organisms: None Reported Past Surgical History: Adenoidectomy, Heart Catheterization, Tonsillectomy, Tubal Ligation Additional Past Surgical History / Comment(s): BMAs, bronchoscopy with washing, picc line, carpel tunnel right wrist, bilateral cataract removal, bilateral laser eye surgery/lens implants, colonoscopy, epidural injections. Past Anesthesia/Blood Transfusion Reactions: No Reported Reaction Additional Past Anesthesia/Blood Transfusion Reaction / Comment(s): Pt has received platelets and blood transfusions without reaction. Past Psychological History: No Psychological Hx Reported Smoking Status: Never smoker Past Alcohol Use History: Rare Past Drug Use History: None Reported - Past Family History Mother Family Medical History: Cancer Father Family Medical History: No Reported History Additional Family Medical History / Comment(s): Father is living. Medications and Allergies Home Medications Medication Instructions Recorded Confirmed Type Escitalopram Oxalate [Lexapro] 30 mg PO QAM 05/04/16 03/10/18 History Ferrous Sulfate [Iron (65 MG 325 mg PO DAILY 05/04/16 03/10/18 History Elemental)] Omeprazole [PriLOSEC] 20 mg PO AC-BID 05/04/16 03/10/18 History Atorvastatin [Lipitor] 20 mg PO DAILY 10/26/16 03/10/18 History Fluticasone Nasal [place] [Flonase 1 spray EA NOSTRIL DAILY 10/26/16 03/10/18 History Nasal [place]] Loratadine [Claritin] 10 mg PO DAILY 10/26/16 03/10/18 History Zolpidem [Ambien] 10 mg PO HS 10/26/16 03/10/18 History Furosemide [Lasix] 20 mg PO BID 08/19/17 03/10/18 History Levothyroxine Sodium [Synthroid] 125 mcg PO DAILY 08/19/17 03/10/18 History Potassium Chloride [Klor-Con 20] 20 meq PO BID 08/19/17 03/10/18 History Calcium Carbonate/Vitamin D3 1 tab PO DAILY 10/08/17 03/10/18 History [Calcium 600-Vit D3 400 Caplet] Metoprolol Tartrate [Lopressor] 50 mg PO BID 10/08/17 03/10/18 History Montelukast [Singulair] 10 mg PO HS 10/08/17 03/10/18 History Albuterol Inhaler [Ventolin Hfa 2 puff INHALATION RT-QID PRN 10/29/17 03/10/18 History Inhaler] Budesonide/Formoterol Fumarate 2 puff INHALATION RT-BID 10/29/17 03/10/18 History [Symbicort 160-4.5 Mcg Inhaler] Ipratropium-Albuterol Nebulize 3 ml INHALATION RT-QID PRN 10/29/17 03/10/18 History [Duoneb 0.5 mg-3 mg/3 ml Soln] Cyanocobalamin (Vitamin B-12) 1,000 mcg PO DAILY 90 Days #90 01/08/18 03/10/18 Rx [Vitamin B-12] tablet Ondansetron [Zofran] 4 mg PO Q6HR PRN #45 tab 01/24/18 03/10/18 Rx Allergies Allergy/AdvReac Type Severity Reaction Status Date / Time Penicillins Allergy Rash/Hives Verified 03/10/18 09:42 Physical Exam Vitals: Vital Signs Temp Pulse Pulse Resp BP Pulse Ox 03/10/18 15:24 98.1 F 68 16 142/80 95 03/10/18 15:00 97.9 F 74 16 139/74 94 L 03/10/18 14:55 97.9 F 16 139/74 94 L 03/10/18 08:53 98.2 F 83 16 130/82 97 Intake and Output 03/10/18 03/10/18 03/10/18 06:59 14:59 22:59 Intake Total 789 Balance 789 Intake: Intake, IV Titration 789 Amount Cytarabine/Pf 6,000 mg 339 Cytarabine/Pf 600 mg In Sodium Chloride 0.9% 250 ml @ 113.333 mls/hr IV Q48H [facility] Rx#:[id number] Sodium Chloride 0.9% 1, 450 000 ml @ 150 mls/hr IV . Q6H40M [facility] Rx#:[id number] Other: Weight 125 kg - Constitutional General appearance: cooperative, morbidly obese, no acute distress - EENT Eyes: anicteric sclerae, EOMI, normal appearance ENT: hearing grossly normal, normal oropharynx - Neck Neck: no lymphadenopathy - Respiratory Respiratory: bilateral: CTA - Cardiovascular Rhythm: regular Heart sounds: normal: S1, S2 Abnormal Heart Sounds: no systolic murmur, no diastolic murmur, no rub, no S3 Gallop, no S4 Gallop, no click, no other leg Peripheral Edema: bilateral: None - Gastrointestinal General gastrointestinal: no absent bowel sounds, no decreased bowel sounds, no distended, no hepatomegaly, no hyperactive bowel sounds, normal bowel sounds, no organomegaly, no rigid, no scaphoid, soft, no splenomegaly, no tenderness, no umbilical hernia, no ventral hernia - Integumentary Integumentary: normal - Neurologic Neurologic: CNII-XII intact - Musculoskeletal Musculoskeletal: strength equal bilaterally - Psychiatric Psychiatric: A&O x's 3, appropriate affect, intact judgment & insight Results CBC & Chem 7: 03/10/18 09:24 18 09:24 Labs: Abnormal Lab Results - Last 24 Hours (Table) 03/10/18 03/10/18 03/10/18 Range/Units 09:24 09:24 17:03 RBC 3.25 L (3.80-5.40) m/uL Hgb 10.1 L (11.4-16.0) gm/dL Hct 30.9 L (34.0-46.0) % RDW 15.6 H (11.5-15.5) % Plt Count 126 L (150-450) k/uL Lymphocytes # 0.9 L (1.0-4.8) k/uL BUN 6 L (7-17) mg/dL Glucose 140 H (74-99) mg/dL POC Glucose (mg/dL) 182 H (75-99) mg/dL Thrombosis Risk Factor Assmnt - DVT/VTE Prophylaxis DVT/VTE Prophylaxis: Pharmacologic Prophylaxis ordered - Choose All That Apply Any of the Below Risk Factors Present?: Yes Each Factor Represents 1 point: Age 41-60 years, Obesity (BMI >25) Other Risk Factors: Yes Each Risk Factor Represents 2 Points: Malignancy Other congenital or acquired thrombophilia - If yes, enter type in comment: No Thrombosis Risk Factor Assessment Total Risk Factor Score: 4 Thrombosis Risk Factor Assessment Level: Moderate Risk Assessment and Plan (1) Acute myeloid leukemia Narrative/Plan: Admit for 1st consolidation with cytarabine. Chemo orders reviewed Supportive meds ordered Labs daily F/U daily Current Visit: Yes Status: Acute Priority: High Code(s): C92.00 - ACUTE MYELOBLASTIC LEUKEMIA, NOT HAVING ACHIEVED REMISSION SNOMED Code(s): 57696702 Plan: PICC line is going to be evaluated by IR, may need to be replaced
[2018-03-10 20:31] LABS: Glucose,Whole Blood 223 mg/dL (75-99)
[2018-03-10] MEDS: NYSTATIN 100,000 UNIT/GM POWD 15 GM TOPICAL SCH (20:36)
[2018-03-10] MEDS: MONTELUKAST 10 MG TAB PO SCH (20:38)
[2018-03-10] MEDS: INSULIN ASPART 100 UNIT/ML 1 ML 10 ML VIAL SQ SCH (20:44)
[2018-03-10] MEDS: SYMBICORT 160-4.5 MCG INHALER INHALATION SCH (20:51)
[2018-03-10] MEDS ORDERED: ACYCLOVIR 200 MG CAP PO SCH (21:00)
[2018-03-10] MEDS ORDERED: busPIRone HCl 5 MG TAB PO SCH (21:00)
[2018-03-10] MEDS: ZOLPIDEM 10 MG TAB PO PRN (22:37)
[2018-03-10] MEDS ORDERED: PETROLATUM, WHITE OINT 50 GM TUBE TOPICAL PRN (22:45)
[2018-03-11] MEDS: SODIUM CHLORIDE 0.9% 1,000 ML IV SCH ×3 (02:42→19:13)
[2018-03-11] MEDS: ONDANSETRON 4 MG/2 ML VIAL IVP PRN (02:51)
[2018-03-11 04:48] LABS: Hemoglobin A1C 5.4 % (4.0-6.0)
[2018-03-11] MEDS: LEVOTHYROXINE 125 MCG TAB PO SCH (06:08)
[2018-03-11 06:58] LABS: Glucose,Whole Blood 163 mg/dL (75-99)
[2018-03-11] MEDS: SYMBICORT 160-4.5 MCG INHALER INHALATION SCH ×2 (08:17→20:58)
[2018-03-11 08:18] LABS: Basophils % (A) 0 %; Eosinophils % (A) 1 %; HCT 29.2 % (34.0-46.0); HGB 9.3 gm/dL (11.4-16.0); Hypochromasia Slight; Lymphocytes # (A) 0.4 k/uL (1.0-4.8); Lymphocytes % (A) 6 %; MCH 29.6 pg (25.0-35.0); MCHC 31.8 g/dL (31.0-37.0); MCV 93.1 fL (80.0-100.0); Mean Platelet Volume 7.5; Monocytes # (A) 0.3 k/uL (0-1.0); Monocytes % (A) 5 %; Neutrophils # (A) 5.4 k/uL (1.3-7.7); Neutrophils % (A) 87 %; Platelet Count 120 k/uL (150-450); RBC 3.14 m/uL (3.80-5.40); RDW 15.4 % (11.5-15.5); WBC 6.2 k/uL (3.8-10.6)
[2018-03-11] MEDS: INSULIN ASPART 100 UNIT/ML 1 ML 10 ML VIAL SQ SCH ×4 (08:30→21:52)
[2018-03-11 08:31] LABS: ALT 29 U/L (9-52); AST 21 U/L (14-36); Albumin 3.4 g/dL (3.5-5.0); Alkaline Phosphatase 69 U/L (38-126); Anion Gap 10 mmol/L; Blood Urea Nitrogen 8 mg/dL (7-17); Calcium 8.8 mg/dL (8.4-10.2); Carbon Dioxide 22 mmol/L (22-30); Chloride 110 mmol/L (98-107); Glucose 164 mg/dL (74-99); Potassium 4.1 mmol/L (3.5-5.1); Sodium 142 mmol/L (137-145); Total Bilirubin 1.4 mg/dL (0.2-1.3); Uric Acid 7.3 mg/dL (3.7-7.4)
[2018-03-11] MEDS: SALT AND SODA MOUTHWASH 1,000 ML PO SCH ×3 (08:31→17:41)
[2018-03-11] MEDS: PANTOPRAZOLE 40 MG TABLET PO SCH ×2 (08:31→17:41)
[2018-03-11] MEDS: ENOXAPARIN 40 MG/0.4 ML SYRINGE SQ SCH (08:32)
[2018-03-11] MEDS: ATORVASTATIN 20 MG TAB PO SCH (08:32)
[2018-03-11] MEDS: FLUTICASONE 50MCG/SPRAY NASAL 16GM EA NOSTRIL SCH (08:32)
[2018-03-11] MEDS: ESCITALOPRAM 20 MG TAB PO SCH (08:32)
[2018-03-11] MEDS: LORATADINE 10 MG TAB PO SCH (08:33)
[2018-03-11] MEDS: prednisoLONE ACETATE 1% OPHTH DROPS 5 ML BTL BOTH EYES SCH ×4 (08:33→21:52)
[2018-03-11] MEDS: NYSTATIN 100,000 UNIT/GM POWD 15 GM TOPICAL SCH ×2 (08:33→21:51)
[2018-03-11] MEDS: METOPROLOL TARTRATE 50 MG TAB PO SCH ×2 (08:33→21:51)
[2018-03-11] MEDS ORDERED: FLUCONAZOLE 100 MG TAB PO SCH (09:00)
--- NOTE | 2018-03-11 09:36 | P.PN ---
Subjective Patient was admitted for chemotherapy second cycle with cytarabine for acute myeloid leukemia. Patient is feeling well today received 2 doses of chemotherapy. Uric acid is essentially within normal limits. Potassium is within normal limits. Patient is receiving IV fluids at 1 25 mL per hour. Constitutional: Denied any fatigue denied any fever. Cardio vascular: denied any chest pain, palpitations Gastrointestinal denied any nausea vomiting Pulmonary: Denied any shortness of breath cough Neurologic denied any new focal deficits Objective - Vital Signs Vital signs: Vital Signs Temp 97.9 F 03/11/18 06:15 Pulse 63 03/11/18 06:15 Resp 18 03/11/18 06:15 BP 135/74 03/11/18 06:15 Pulse Ox 93 L 03/11/18 06:15 Intake & Output 03/10/18 03/11/18 03/11/18 18:59 06:59 18:59 Intake Total 789 1800 Balance 789 1800 Weight 125 kg Intake: Intake, IV Titration 789 1350 Amount Cytarabine/Pf 6,000 mg 339 Cytarabine/Pf 600 mg In Sodium Chloride 0.9% 250 ml @ 113.333 mls/hr IV Q48H [facility] Rx#:[id number] Sodium Chloride 0.9% 1, 450 1350 000 ml @ 150 mls/hr IV . Q6H40M [facility] Rx#:[id number] Oral 450 Other: Voiding Method Toilet Toilet # Voids 1 - Exam PHYSICAL EXAMINATION: GENERAL: The patient is alert and oriented x3, not in any acute distress. Obese HEENT: Pupils are round and equally reacting to light. EOMI. No scleral icterus. No conjunctival pallor. Normocephalic, atraumatic. No pharyngeal erythema. No thyromegaly. CARDIOVASCULAR: S1 and S2 present. No murmurs, rubs, or gallops. PULMONARY: Chest is clear to auscultation, no wheezing or crackles. ABDOMEN: Soft, nontender, nondistended, normoactive bowel sounds. No palpable organomegaly. MUSCULOSKELETAL: No joint swelling or deformity. EXTREMITIES: No cyanosis, clubbing, or pedal edema. NEUROLOGICAL: Gross neurological examination did not reveal any focal deficits. SKIN: No rashes. - Labs CBC & Chem 7: 03/11/18 07:24 03/11/18 07:24 Labs: Abnormal Lab Results - Last 24 Hours (Table) 03/10/18 03/10/18 03/10/18 Range/Units 09:24 09:24 17:03 RBC 3.25 L (3.80-5.40) m/uL Hgb 10.1 L (11.4-16.0) gm/dL Hct 30.9 L (34.0-46.0) % RDW 15.6 H (11.5-15.5) % Plt Count 126 L (150-450) k/uL Lymphocytes # 0.9 L (1.0-4.8) k/uL Chloride (98-107) mmol/L BUN 6 L (7-17) mg/dL Glucose 140 H (74-99) mg/dL POC Glucose (mg/dL) 182 H (75-99) mg/dL Total Bilirubin (0.2-1.3) mg/dL Total Protein (6.3-8.2) g/dL Albumin (3.5-5.0) g/dL 03/10/18 03/11/18 03/11/18 Range/Units 20:30 06:57 07:24 RBC 3.14 L (3.80-5.40) m/uL Hgb 9.3 L (11.4-16.0) gm/dL Hct 29.2 L (34.0-46.0) % RDW (11.5-15.5) % Plt Count 120 L (150-450) k/uL Lymphocytes # 0.4 L (1.0-4.8) k/uL Chloride (98-107) mmol/L BUN (7-17) mg/dL Glucose (74-99) mg/dL POC Glucose (mg/dL) 223 H 163 H (75-99) mg/dL Total Bilirubin (0.2-1.3) mg/dL Total Protein (6.3-8.2) g/dL Albumin (3.5-5.0) g/dL 03/11/18 Range/Units 07:24 RBC (3.80-5.40) m/uL Hgb (11.4-16.0) gm/dL Hct (34.0-46.0) % RDW (11.5-15.5) % Plt Count (150-450) k/uL Lymphocytes # (1.0-4.8) k/uL Chloride 110 H (98-107) mmol/L BUN (7-17) mg/dL Glucose 164 H (74-99) mg/dL POC Glucose (mg/dL) (75-99) mg/dL Total Bilirubin 1.4 H (0.2-1.3) mg/dL Total Protein 6.0 L (6.3-8.2) g/dL Albumin 3.4 L (3.5-5.0) g/dL Assessment and Plan Plan: -Acute myeloid leukemia: Inpatient chemotherapy with cytarabine continue with IV normal saline at 1 25 mL per hour as mentioned above uric acid and potassium are essentially within normal limits -History of asthma not in acute exacerbation -Obesity -Hypertension -Hyperlipidemia -Hypothyroidism -Anxiety depression -Type 2 diabetes mellitus: Patient is not using any of her oral hypoglycemic agents will monitor her blood sugars and hemoglobin A1c. Will use sliding scale for now.
[2018-03-11 11:32] LABS: Glucose,Whole Blood 162 mg/dL (75-99)
[2018-03-11] MEDS: FERROUS SULFATE 325 MG TAB PO SCH (12:51)
[2018-03-11] MEDS: CALCIUM CARB-VIT D 500MG-200UN 1 EACH TAB PO SCH (12:51)
[2018-03-11] MEDS: CYANOCOBALAMIN 500 MCG TAB PO SCH (12:51)
[2018-03-11 17:12] LABS: Glucose,Whole Blood 176 mg/dL (75-99)
--- NOTE | 2018-03-11 18:25 | P.PN ---
Subjective Progress Note Date: 03/11/18 Principal diagnosis: admit for first chemotherapy consolidation for AML Patient seen today in follow-up, she is in good spirits, she denies oral irritation, sore throat, mild nausea not requiring anti-emetics at this time, appetite is fair, things don't taste very good, no complaints of indigestion or heartburn, difficulty in breathing, palpitations, abdominal pain or distention, acute changes in bowel or bladder habits, swelling, bleeding, rashes or pain. Objective - Vital Signs Vital signs: Vital Signs Temp 97.7 F 03/11/18 14:55 Pulse 74 03/11/18 14:55 Resp 16 03/11/18 14:55 BP 122/68 03/11/18 14:55 Pulse Ox 90 L 03/11/18 14:55 Intake & Output 03/10/18 03/11/18 03/11/18 18:59 06:59 18:59 Intake Total 789 1800 1200 Balance 789 1800 1200 Weight 125 kg Intake: Intake, IV Titration 789 1350 1200 Amount Cytarabine/Pf 6,000 mg 339 Cytarabine/Pf 600 mg In Sodium Chloride 0.9% 250 ml @ 113.333 mls/hr IV Q48H [facility] Rx#:[id number] Sodium Chloride 0.9% 1, 450 1350 1200 000 ml @ 150 mls/hr IV . Q6H40M [facility] Rx#:[id number] Oral 450 Other: Voiding Method Toilet Toilet # Voids 1 - Constitutional General appearance: Present: cooperative, no acute distress - EENT Eyes: Present: anicteric sclerae ENT: Present: hearing grossly normal, normal oropharynx - Respiratory Respiratory: bilateral: CTA - Cardiovascular Rhythm: regular Heart sounds: normal: S1, S2 - Peripheral edema leg Peripheral Edema: bilateral: None - Gastrointestinal General gastrointestinal: Present: normal bowel sounds, soft - Integumentary Integumentary: Present: normal - Neurologic Neurologic: Present: CNII-XII intact - Musculoskeletal Musculoskeletal: Present: strength equal bilaterally - Psychiatric Psychiatric: Present: A&O x's 3, appropriate affect, intact judgment & insight - Labs CBC & Chem 7: 03/11/18 07:24 03/11/18 07:24 Labs: Abnormal Lab Results - Last 24 Hours (Table) 03/10/18 03/11/18 03/11/18 Range/Units 20:30 06:57 07:24 RBC 3.14 L (3.80-5.40) m/uL Hgb 9.3 L (11.4-16.0) gm/dL Hct 29.2 L (34.0-46.0) % Plt Count 120 L (150-450) k/uL Lymphocytes # 0.4 L (1.0-4.8) k/uL Chloride (98-107) mmol/L Glucose (74-99) mg/dL POC Glucose (mg/dL) 223 H 163 H (75-99) mg/dL Total Bilirubin (0.2-1.3) mg/dL Total Protein (6.3-8.2) g/dL Albumin (3.5-5.0) g/dL 03/11/18 03/11/18 03/11/18 Range/Units 07:24 11:32 17:11 RBC (3.80-5.40) m/uL Hgb (11.4-16.0) gm/dL Hct (34.0-46.0) % Plt Count (150-450) k/uL Lymphocytes # (1.0-4.8) k/uL Chloride 110 H (98-107) mmol/L Glucose 164 H (74-99) mg/dL POC Glucose (mg/dL) 162 H 176 H (75-99) mg/dL Total Bilirubin 1.4 H (0.2-1.3) mg/dL Total Protein 6.0 L (6.3-8.2) g/dL Albumin 3.4 L (3.5-5.0) g/dL Assessment and Plan (1) Acute myeloid leukemia Narrative/Plan: Cont 1st consolidation with cytarabine. continue Labs daily, F/U daily Current Visit: Yes Status: Acute Priority: High Code(s): C92.00 - ACUTE MYELOBLASTIC LEUKEMIA, NOT HAVING ACHIEVED REMISSION SNOMED Code(s): 77347200 Plan: Doctor attests: I performed a history and physical examination of this patient, discussed with dictator. I agree with dictators note, documented as a scribe.
[2018-03-11 20:19] LABS: Glucose,Whole Blood 175 mg/dL (75-99)
[2018-03-11] MEDS: MONTELUKAST 10 MG TAB PO SCH (21:51)
[2018-03-11] MEDS: ZOLPIDEM 10 MG TAB PO PRN (21:55)
[2018-03-12] MEDS: SODIUM CHLORIDE 0.9% 1,000 ML IV SCH ×3 (01:18→17:59)
[2018-03-12] MEDS: LEVOTHYROXINE 125 MCG TAB PO SCH (06:17)
[2018-03-12 07:02] LABS: Glucose,Whole Blood 114 mg/dL (75-99)
[2018-03-12] MEDS: SYMBICORT 160-4.5 MCG INHALER INHALATION SCH ×2 (08:15→21:10)
[2018-03-12] MEDS: ENOXAPARIN 40 MG/0.4 ML SYRINGE SQ SCH (08:58)
[2018-03-12] MEDS: INSULIN ASPART 100 UNIT/ML 1 ML 10 ML VIAL SQ SCH ×4 (08:58→22:19)
[2018-03-12] MEDS: FLUTICASONE 50MCG/SPRAY NASAL 16GM EA NOSTRIL SCH (08:58)
[2018-03-12] MEDS: PANTOPRAZOLE 40 MG TABLET PO SCH ×2 (08:58→18:00)
[2018-03-12] MEDS: SALT AND SODA MOUTHWASH 1,000 ML PO SCH ×3 (08:58→17:59)
[2018-03-12] MEDS: LORATADINE 10 MG TAB PO SCH (08:59)
[2018-03-12] MEDS: ESCITALOPRAM 20 MG TAB PO SCH (08:59)
[2018-03-12] MEDS: METOPROLOL TARTRATE 50 MG TAB PO SCH ×2 (08:59→22:19)
[2018-03-12] MEDS: ATORVASTATIN 20 MG TAB PO SCH (08:59)
[2018-03-12] MEDS: prednisoLONE ACETATE 1% OPHTH DROPS 5 ML BTL BOTH EYES SCH ×4 (09:00→22:19)
[2018-03-12] MEDS: NYSTATIN 100,000 UNIT/GM POWD 15 GM TOPICAL SCH ×2 (09:00→22:20)
[2018-03-12 09:28] LABS: Basophils % (A) 0 %; Eosinophils # (A) 0.1 k/uL (0-0.7); Eosinophils % (A) 2 %; HCT 27.1 % (34.0-46.0); HGB 8.7 gm/dL (11.4-16.0); Hypochromasia Moderate; Lymphocytes # (A) 0.4 k/uL (1.0-4.8); Lymphocytes % (A) 9 %; MCH 30.7 pg (25.0-35.0); Mean Platelet Volume 7.2; Monocytes # (A) 0.1 k/uL (0-1.0); Monocytes % (A) 2 %; Neutrophils # (A) 4.1 k/uL (1.3-7.7); Neutrophils % (A) 87 %; Platelet Count 106 k/uL (150-450); RBC 2.82 m/uL (3.80-5.40); RDW 15.4 % (11.5-15.5); WBC 4.7 k/uL (3.8-10.6)
[2018-03-12 09:42] LABS: ALT 17 U/L (9-52); AST 20 U/L (14-36); Albumin 3.4 g/dL (3.5-5.0); Alkaline Phosphatase 56 U/L (38-126); Anion Gap 9 mmol/L; Blood Urea Nitrogen 12 mg/dL (7-17); Calcium 8.3 mg/dL (8.4-10.2); Carbon Dioxide 23 mmol/L (22-30); Chloride 112 mmol/L (98-107); Glucose 145 mg/dL (74-99); Potassium 3.9 mmol/L (3.5-5.1); Sodium 144 mmol/L (137-145); Total Bilirubin 1.1 mg/dL (0.2-1.3); Total Protein 6.1 g/dL (6.3-8.2); Uric Acid 6.2 mg/dL (3.7-7.4)
[2018-03-12 11:16] LABS: Glucose,Whole Blood 108 mg/dL (75-99)
[2018-03-12] MEDS: CALCIUM CARB-VIT D 500MG-200UN 1 EACH TAB PO SCH (13:06)
[2018-03-12] MEDS: FERROUS SULFATE 325 MG TAB PO SCH (13:07)
[2018-03-12] MEDS: CYANOCOBALAMIN 500 MCG TAB PO SCH (13:07)
--- NOTE | 2018-03-12 14:09 | P.PN ---
Subjective Progress Note Date: 03/12/18 Principal diagnosis: admit for first chemotherapy consolidation for AML Pt seen in f/u, she has no physical c/o today on a 10 point ROS other then cough , small amount of yellow sputum, she is eating and drinking fairly well, ambulating independently Objective - Vital Signs Vital signs: Vital Signs Temp 97.9 F 03/12/18 13:02 Pulse 67 03/12/18 13:02 Resp 16 03/12/18 13:02 BP 130/72 03/12/18 13:02 Pulse Ox 94 L 03/12/18 13:02 Intake & Output 03/11/18 03/12/18 03/12/18 18:59 06:59 18:59 Intake Total 1200 1600 Balance 1200 1600 Intake: Intake, IV Titration 1200 1350 Amount Sodium Chloride 0.9% 1, 1200 1350 000 ml @ 150 mls/hr IV . Q6H40M [facility] Rx#:[id number] Oral 250 Other: Voiding Method Toilet Toilet Toilet # Voids 1 - Constitutional General appearance: Present: cooperative, no acute distress, obese - EENT Eyes: Present: anicteric sclerae ENT: Present: normal oropharynx - Respiratory Respiratory: bilateral: diminished, rales (end expiratory) - Cardiovascular Rhythm: regular Heart sounds: normal: S1, S2 Abnormal Heart Sounds: Absent: systolic murmur, diastolic murmur, rub, S3 Gallop , S4 Gallop, click, other - Peripheral edema leg Peripheral Edema: bilateral: Trace - Gastrointestinal General gastrointestinal: Present: normal bowel sounds, soft - Integumentary Integumentary: Present: normal - Neurologic Neurologic: Present: CNII-XII intact - Musculoskeletal Musculoskeletal: Present: strength equal bilaterally - Psychiatric Psychiatric: Present: A&O x's 3, appropriate affect, intact judgment & insight - Labs CBC & Chem 7: 03/12/18 09:03 03/12/18 09:03 Labs: Abnormal Lab Results - Last 24 Hours (Table) 03/11/18 03/11/18 03/12/18 Range/Units 17:11 20:17 07:01 RBC (3.80-5.40) m/uL Hgb (11.4-16.0) gm/dL Hct (34.0-46.0) % Plt Count (150-450) k/uL Lymphocytes # (1.0-4.8) k/uL Chloride (98-107) mmol/L Glucose (74-99) mg/dL POC Glucose (mg/dL) 176 H 175 H 114 H (75-99) mg/dL Calcium (8.4-10.2) mg/dL Total Protein (6.3-8.2) g/dL Albumin (3.5-5.0) g/dL 03/12/18 03/12/18 03/12/18 Range/Units 09:03 09:03 11:15 RBC 2.82 L (3.80-5.40) m/uL Hgb 8.7 L (11.4-16.0) gm/dL Hct 27.1 L (34.0-46.0) % Plt Count 106 L (150-450) k/uL Lymphocytes # 0.4 L (1.0-4.8) k/uL Chloride 112 H (98-107) mmol/L Glucose 145 H (74-99) mg/dL POC Glucose (mg/dL) 108 H (75-99) mg/dL Calcium 8.3 L (8.4-10.2) mg/dL Total Protein 6.1 L (6.3-8.2) g/dL Albumin 3.4 L (3.5-5.0) g/dL Assessment and Plan (1) Acute myeloid leukemia Narrative/Plan: Cont chemo without adjustment Las daily daily f/u Meds reviewed, no changes Added IS for pulmonary toilet. Reevaluate in AM, if symptoms persist or progress CXR will be ordered. Current Visit: Yes Status: Acute Priority: High Code(s): C92.00 - ACUTE MYELOBLASTIC LEUKEMIA, NOT HAVING ACHIEVED REMISSION SNOMED Code(s): 46607510
[2018-03-12] MEDS: ONDANSETRON 16 MG in SODIUM CHLORIDE 0.9% 50 ML IVPB SCH (14:50)
[2018-03-12] MEDS: DEXAMETHASONE SOD PHOSPHATE 10 MG/ML 1 ML VIAL IV SCH (14:51)
[2018-03-12] MEDS: CYTARABINE IV SCH (15:02)
[2018-03-12] MEDS: SODIUM CHLORIDE 0.9% IV SCH (15:02)
[2018-03-12 17:19] LABS: Glucose,Whole Blood 151 mg/dL (75-99)
[2018-03-12 22:06] LABS: Glucose,Whole Blood 302 mg/dL (75-99)
[2018-03-12] MEDS: ZOLPIDEM 10 MG TAB PO PRN (22:19)
[2018-03-12] MEDS: MONTELUKAST 10 MG TAB PO SCH (22:19)
[2018-03-13] MEDS: SODIUM CHLORIDE 0.9% 1,000 ML IV SCH ×5 (00:12→23:15)
[2018-03-13] MEDS: SODIUM CHLORIDE 0.9% IV SCH (01:14)
[2018-03-13] MEDS: CYTARABINE IV SCH (01:14)
[2018-03-13] MEDS: LEVOTHYROXINE 125 MCG TAB PO SCH (06:23)
[2018-03-13 07:31] LABS: Glucose,Whole Blood 178 mg/dL (75-99)
[2018-03-13 07:53] LABS: Basophils % (A) 0 %; Eosinophils # (A) 0.1 k/uL (0-0.7); Eosinophils % (A) 2 %; HCT 25.7 % (34.0-46.0); HGB 8.4 gm/dL (11.4-16.0); Hypochromasia Moderate; Lymphocytes # (A) 0.2 k/uL (1.0-4.8); Lymphocytes % (A) 6 %; MCH 30.8 pg (25.0-35.0); MCHC 32.7 g/dL (31.0-37.0); MCV 94.4 fL (80.0-100.0); Mean Platelet Volume 8.3; Monocytes % (A) 1 %; Neutrophils # (A) 2.5 k/uL (1.3-7.7); Neutrophils % (A) 91 %; Poikilocytosis Slight; RBC 2.72 m/uL (3.80-5.40); RDW 15.6 % (11.5-15.5); WBC 2.7 k/uL (3.8-10.6)
[2018-03-13] MEDS: INSULIN ASPART 100 UNIT/ML 1 ML 10 ML VIAL SQ SCH ×4 (08:05→20:14)
[2018-03-13] MEDS: ENOXAPARIN 40 MG/0.4 ML SYRINGE SQ SCH (08:07)
[2018-03-13] MEDS: ESCITALOPRAM 20 MG TAB PO SCH (08:07)
[2018-03-13] MEDS: PANTOPRAZOLE 40 MG TABLET PO SCH ×2 (08:07→17:54)
[2018-03-13] MEDS: LORATADINE 10 MG TAB PO SCH (08:07)
[2018-03-13] MEDS: FLUTICASONE 50MCG/SPRAY NASAL 16GM EA NOSTRIL SCH (08:07)
[2018-03-13] MEDS: ATORVASTATIN 20 MG TAB PO SCH (08:07)
[2018-03-13] MEDS: METOPROLOL TARTRATE 50 MG TAB PO SCH ×2 (08:07→20:15)
[2018-03-13] MEDS: prednisoLONE ACETATE 1% OPHTH DROPS 5 ML BTL BOTH EYES SCH ×4 (08:08→22:06)
[2018-03-13] MEDS: SALT AND SODA MOUTHWASH 1,000 ML PO SCH ×3 (08:08→17:54)
[2018-03-13] MEDS: NYSTATIN 100,000 UNIT/GM POWD 15 GM TOPICAL SCH ×2 (08:08→20:16)
[2018-03-13 09:38] LABS: Platelet Count 94 k/uL (150-450)
[2018-03-13 09:45] LABS: ALT 23 U/L (9-52); AST 24 U/L (14-36); Albumin 3.5 g/dL (3.5-5.0); Alkaline Phosphatase 61 U/L (38-126); Anion Gap 11 mmol/L; Blood Urea Nitrogen 11 mg/dL (7-17); Calcium 8.6 mg/dL (8.4-10.2); Carbon Dioxide 20 mmol/L (22-30); Chloride 111 mmol/L (98-107); Glucose 213 mg/dL (74-99); Potassium 4.1 mmol/L (3.5-5.1); Sodium 142 mmol/L (137-145); Total Protein 6.2 g/dL (6.3-8.2); Uric Acid 5.5 mg/dL (3.7-7.4)
[2018-03-13] MEDS: SYMBICORT 160-4.5 MCG INHALER INHALATION SCH ×2 (10:46→21:22)
[2018-03-13 11:53] LABS: Glucose,Whole Blood 153 mg/dL (75-99)
[2018-03-13] MEDS: CYANOCOBALAMIN 500 MCG TAB PO SCH (12:38)
[2018-03-13] MEDS: CALCIUM CARB-VIT D 500MG-200UN 1 EACH TAB PO SCH (12:38)
[2018-03-13] MEDS: FERROUS SULFATE 325 MG TAB PO SCH (12:39)
--- NOTE | 2018-03-13 17:00 | P.PN ---
Subjective Progress Note Date: 03/13/18 Progress note being dictated for Dr. Amos. Interval history:Patient was admitted for chemotherapy second cycle with cytarabine for acute myeloid leukemia. Patient is feeling well today received 2 doses of chemotherapy. Uric acid is essentially within normal limits. Potassium is within normal limits. Patient is receiving IV fluids at 1 25 mL per hour. Constitutional: Denied any fatigue denied any fever. Cardio vascular: denied any chest pain, palpitations Gastrointestinal denied any nausea vomiting Pulmonary: Denied any shortness of breath cough Neurologic denied any new focal deficits 03/13/2018 receiving IV fluid hydration, chemotherapy tomorrow. Good diet intake, no nausea or vomiting. Afebrile. Hemoglobin 8.4, platelets 94, neutrophil 91. Denies lightheadedness dizziness or focal deficits. Denies chest pain, palpitations or increased shortness of breath. Objective - Vital Signs Vital signs: Vital Signs Temp 98.0 F 03/13/18 12:24 Pulse 62 03/13/18 12:24 Resp 20 03/13/18 12:24 BP 140/80 03/13/18 12:24 Pulse Ox 91 L 03/13/18 12:24 Intake & Output 03/12/18 03/13/18 03/13/18 18:59 06:59 18:59 Intake Total 1200 2690 1200 Balance 1200 2690 1200 Intake: Intake, IV Titration 1200 2050 1200 Amount Cytarabine/Pf 6,000 mg 250 Cytarabine/Pf 600 mg In Sodium Chloride 0.9% 250 ml @ 113.333 mls/hr IV Q48H [facility] Rx#:[id number] Sodium Chloride 0.9% 1, 1200 1800 1200 000 ml @ 150 mls/hr IV . Q6H40M [facility] Rx#:[id number] Oral 640 Other: Voiding Method Toilet Toilet Toilet # Voids 3 - Exam GENERAL: The patient is alert and oriented x3, no acute distress. HEENT: Pupils are round and equally reacting to light. EOMI. No scleral icterus. No conjunctival pallor. Normocephalic, atraumatic. CARDIOVASCULAR: S1 and S2 present. No murmurs, rubs, or gallops. PULMONARY: Chest is clear to auscultation, no wheezing or crackles. ABDOMEN: Soft, nontender, nondistended, normoactive bowel sounds. No palpable organomegaly. MUSCULOSKELETAL: No joint swelling or deformity. EXTREMITIES: No cyanosis, clubbing, or pedal edema. NEUROLOGICAL: Gross neurological examination did not reveal any focal deficits. SKIN: No rashes. - Labs CBC & Chem 7: 03/13/18 07:31 03/13/18 08:44 Labs: Abnormal Lab Results - Last 24 Hours (Table) 03/12/18 03/12/18 03/13/18 Range/Units 17:18 22:04 07:30 WBC (3.8-10.6) k/uL RBC (3.80-5.40) m/uL Hgb (11.4-16.0) gm/dL Hct (34.0-46.0) % RDW (11.5-15.5) % Plt Count (150-450) k/uL Lymphocytes # (1.0-4.8) k/uL Chloride (98-107) mmol/L Carbon Dioxide (22-30) mmol/L Glucose (74-99) mg/dL POC Glucose (mg/dL) 151 H 302 H 178 H (75-99) mg/dL Total Protein (6.3-8.2) g/dL 03/13/18 03/13/18 03/13/18 Range/Units 07:31 08:44 11:52 WBC 2.7 L (3.8-10.6) k/uL RBC 2.72 L (3.80-5.40) m/uL Hgb 8.4 L (11.4-16.0) gm/dL Hct 25.7 L (34.0-46.0) % RDW 15.6 H (11.5-15.5) % Plt Count 94 L (150-450) k/uL Lymphocytes # 0.2 L (1.0-4.8) k/uL Chloride 111 H (98-107) mmol/L Carbon Dioxide 20 L (22-30) mmol/L Glucose 213 H (74-99) mg/dL POC Glucose (mg/dL) 153 H (75-99) mg/dL Total Protein 6.2 L (6.3-8.2) g/dL Assessment and Plan Assessment: -Acute myeloid leukemia: Inpatient chemotherapy -History of asthma not in acute exacerbation -Obesity -Hypertension -Hyperlipidemia -Hypothyroidism -Anxiety depression -Type 2 diabetes mellitus Plan: Continue on current medication regime ,monitoring and symptomatic treatment. Scheduled for chemotherapy tomorrow. Aggressive pulmonary toileting with incentive spirometer reinforced. Increase ambulation as tolerated. Follow closely with oncology. The impression and plan of care has been dictated as directed. : I performed a history and examination of this patient, discussed the same with the dictator. I agree with the dictator's note ,documented as a scribe. Any additional findings or plans will be noted.
[2018-03-13 17:34] LABS: Glucose,Whole Blood 161 mg/dL (75-99)
--- NOTE | 2018-03-13 18:18 | P.PN ---
Subjective Progress Note Date: 03/13/18 Principal diagnosis: admit for first chemotherapy consolidation for AML Patient seen in follow-up, she is tolerating treatment well, no acute physical complaints, she has persisting cough, incentive spirometry has helped as well as respiratory therapy treatments, no fevers, fully ambulatory, no pain, 14 point review of systems is negative. Objective - Vital Signs Vital signs: Vital Signs Temp 98.0 F 03/13/18 12:24 Pulse 62 03/13/18 12:24 Resp 20 03/13/18 12:24 BP 140/80 03/13/18 12:24 Pulse Ox 91 L 03/13/18 12:24 Intake & Output 03/12/18 03/13/18 03/13/18 18:59 06:59 18:59 Intake Total 1200 2690 1200 Balance 1200 2690 1200 Intake: Intake, IV Titration 1200 2050 1200 Amount Cytarabine/Pf 6,000 mg 250 Cytarabine/Pf 600 mg In Sodium Chloride 0.9% 250 ml @ 113.333 mls/hr IV Q48H [facility] Rx#:[id number] Sodium Chloride 0.9% 1, 1200 1800 1200 000 ml @ 150 mls/hr IV . Q6H40M [facility] Rx#:[id number] Oral 640 Other: Voiding Method Toilet Toilet Toilet # Voids 3 - Constitutional General appearance: Present: cooperative, no acute distress, obese - EENT Eyes: Present: anicteric sclerae, EOMI, poor dentition - Respiratory Respiratory: bilateral: CTA (improved aeration today, deeper inspiration noted) - Cardiovascular Rhythm: regular Heart sounds: normal: S1, S2 - Peripheral edema leg Peripheral Edema: bilateral: None - Gastrointestinal General gastrointestinal: Present: normal bowel sounds, soft - Integumentary Integumentary: Present: normal turgor, pale - Neurologic Neurologic: Present: CNII-XII intact - Musculoskeletal Musculoskeletal: Present: strength equal bilaterally - Psychiatric Psychiatric: Present: A&O x's 3, appropriate affect, intact judgment & insight - Labs CBC & Chem 7: 03/13/18 07:31 03/13/18 08:44 Labs: Abnormal Lab Results - Last 24 Hours (Table) 03/12/18 03/13/18 03/13/18 Range/Units 22:04 07:30 07:31 WBC 2.7 L (3.8-10.6) k/uL RBC 2.72 L (3.80-5.40) m/uL Hgb 8.4 L (11.4-16.0) gm/dL Hct 25.7 L (34.0-46.0) % RDW 15.6 H (11.5-15.5) % Plt Count 94 L (150-450) k/uL Lymphocytes # 0.2 L (1.0-4.8) k/uL Chloride (98-107) mmol/L Carbon Dioxide (22-30) mmol/L Glucose (74-99) mg/dL POC Glucose (mg/dL) 302 H 178 H (75-99) mg/dL Total Protein (6.3-8.2) g/dL 03/13/18 03/13/18 03/13/18 Range/Units 08:44 11:52 17:33 WBC (3.8-10.6) k/uL RBC (3.80-5.40) m/uL Hgb (11.4-16.0) gm/dL Hct (34.0-46.0) % RDW (11.5-15.5) % Plt Count (150-450) k/uL Lymphocytes # (1.0-4.8) k/uL Chloride 111 H (98-107) mmol/L Carbon Dioxide 20 L (22-30) mmol/L Glucose 213 H (74-99) mg/dL POC Glucose (mg/dL) 153 H 161 H (75-99) mg/dL Total Protein 6.2 L (6.3-8.2) g/dL Assessment and Plan (1) Acute myeloid leukemia Narrative/Plan: Cont chemo without adjustment Las daily daily f/u Meds reviewed, no changes, as needed medications for chemotherapy side effects available improved breath sounds, evaluate daily, if symptoms progress CXR will be ordered. Anticipate Saturday a.m. discharge after lab evaluation. Current Visit: Yes Status: Acute Priority: High Code(s): C92.00 - ACUTE MYELOBLASTIC LEUKEMIA, NOT HAVING ACHIEVED REMISSION SNOMED Code(s): 55682094
[2018-03-13 20:03] LABS: Glucose,Whole Blood 198 mg/dL (75-99)
[2018-03-13] MEDS: MONTELUKAST 10 MG TAB PO SCH (20:15)
[2018-03-13] MEDS: ZOLPIDEM 10 MG TAB PO PRN (23:01)
[2018-03-14] MEDS: SODIUM CHLORIDE 0.9% 1,000 ML IV SCH ×6 (05:21→23:23)
[2018-03-14] MEDS: LEVOTHYROXINE 125 MCG TAB PO SCH (06:29)
[2018-03-14 07:33] LABS: Glucose,Whole Blood 122 mg/dL (75-99)
[2018-03-14 07:50] LABS: Basophils % (A) 0 %; Eosinophils # (A) 0.1 k/uL (0-0.7); Eosinophils % (A) 2 %; HCT 25.1 % (34.0-46.0); HGB 7.9 gm/dL (11.4-16.0); Hypochromasia Marked; Lymphocytes # (A) 0.3 k/uL (1.0-4.8); Lymphocytes % (A) 9 %; MCH 30.9 pg (25.0-35.0); MCHC 31.4 g/dL (31.0-37.0); MCV 98.5 fL (80.0-100.0); Mean Platelet Volume 7.6; Monocytes # (A) 0.1 k/uL (0-1.0); Monocytes % (A) 3 %; Neutrophils # (A) 2.8 k/uL (1.3-7.7); Neutrophils % (A) 86 %; RBC 2.55 m/uL (3.80-5.40); RDW 14.8 % (11.5-15.5); WBC 3.2 k/uL (3.8-10.6)
[2018-03-14 07:53] LABS: ALT 29 U/L (9-52); AST 36 U/L (14-36); Albumin 3.5 g/dL (3.5-5.0); Alkaline Phosphatase 54 U/L (38-126); Anion Gap 10 mmol/L; Blood Urea Nitrogen 13 mg/dL (7-17); Calcium 8.3 mg/dL (8.4-10.2); Carbon Dioxide 18 mmol/L (22-30); Chloride 114 mmol/L (98-107); Glucose 111 mg/dL (74-99); Potassium 3.6 mmol/L (3.5-5.1); Sodium 142 mmol/L (137-145); Total Bilirubin 1.3 mg/dL (0.2-1.3); Total Protein 6.1 g/dL (6.3-8.2); Uric Acid 4.9 mg/dL (3.7-7.4)
[2018-03-14] MEDS: INSULIN ASPART 100 UNIT/ML 1 ML 10 ML VIAL SQ SCH ×4 (08:03→21:07)
[2018-03-14] MEDS: ENOXAPARIN 40 MG/0.4 ML SYRINGE SQ SCH (08:11)
[2018-03-14] MEDS: FLUTICASONE 50MCG/SPRAY NASAL 16GM EA NOSTRIL SCH (08:11)
[2018-03-14] MEDS: ESCITALOPRAM 20 MG TAB PO SCH (08:12)
[2018-03-14] MEDS: LORATADINE 10 MG TAB PO SCH (08:13)
[2018-03-14] MEDS: METOPROLOL TARTRATE 50 MG TAB PO SCH ×2 (08:13→21:07)
[2018-03-14] MEDS: PANTOPRAZOLE 40 MG TABLET PO SCH ×2 (08:13→19:15)
[2018-03-14] MEDS: ATORVASTATIN 20 MG TAB PO SCH (08:13)
[2018-03-14] MEDS: NYSTATIN 100,000 UNIT/GM POWD 15 GM TOPICAL SCH ×2 (08:15→21:08)
[2018-03-14] MEDS: prednisoLONE ACETATE 1% OPHTH DROPS 5 ML BTL BOTH EYES SCH ×4 (08:15→21:08)
[2018-03-14] MEDS: SALT AND SODA MOUTHWASH 1,000 ML PO SCH ×3 (08:18→19:15)
[2018-03-14] MEDS: SYMBICORT 160-4.5 MCG INHALER INHALATION SCH ×2 (08:38→19:25)
[2018-03-14 08:45] LABS: Anisocytosis (M) Present; Platelet Count 87 k/uL (150-450); Poikilocytosis (M) Present
[2018-03-14] MEDS: CALCIUM CARB-VIT D 500MG-200UN 1 EACH TAB PO SCH (10:52)
[2018-03-14] MEDS: CYANOCOBALAMIN 500 MCG TAB PO SCH (10:53)
[2018-03-14] MEDS: FERROUS SULFATE 325 MG TAB PO SCH (10:53)
[2018-03-14 10:59] LABS: Glucose,Whole Blood 145 mg/dL (75-99)
--- NOTE | 2018-03-14 13:31 | P.PN ---
Subjective Progress Note Date: 03/14/18 Principal diagnosis: AML - Timed Chemotherapy She is tolerating chemo well, a little more anxious today. Complains of SOB, her LE have increased swelling, she feels more than previous. Objective - Vital Signs Vital signs: Vital Signs Temp 97.0 F L 03/14/18 05:51 Pulse 55 L 03/14/18 08:00 Resp 16 03/14/18 08:00 BP 143/83 03/14/18 05:51 Pulse Ox 93 L 03/14/18 05:51 Intake & Output 03/13/18 03/14/18 03/14/18 18:59 06:59 18:59 Intake Total 1200 2280 Balance 1200 2280 Intake: Intake, IV Titration 1200 1800 Amount Sodium Chloride 0.9% 1, 1200 1800 000 ml @ 150 mls/hr IV . Q6H40M [facility] Rx#:[id number] Oral 480 Other: Voiding Method Toilet Toilet Toilet # Voids 4 - Exam Constitutional General appearance: Present: cooperative, no acute distress, obese, Alopecia - EENT Eyes: Present: anicteric sclerae, EOMI, poor dentition - Respiratory Respiratory: bilateral: CTA, diminished lower lobes right greater than left - Cardiovascular Rhythm: regular Heart sounds: normal: S1, S2 - Peripheral edema leg Peripheral Edema: bilateral:BLE edema - Gastrointestinal General gastrointestinal: Present: normal bowel sounds, soft - Integumentary Integumentary: Present: normal turgor, pale - Neurologic Neurologic: Present: CNII-XII intact - Musculoskeletal Musculoskeletal: Present: strength equal bilaterally - Psychiatric Psychiatric: Present: A&O x's 3, appropriate affect, intact judgment & insight - Labs CBC & Chem 7: 03/14/18 07:18 03/14/18 07:18 Labs: Abnormal Lab Results - Last 24 Hours (Table) 03/13/18 03/13/18 03/14/18 Range/Units 17:33 20:02 07:18 WBC 3.2 L (3.8-10.6) k/uL RBC 2.55 L (3.80-5.40) m/uL Hgb 7.9 L (11.4-16.0) gm/dL Hct 25.1 L (34.0-46.0) % Plt Count 87 L (150-450) k/uL Lymphocytes # 0.3 L (1.0-4.8) k/uL Chloride (98-107) mmol/L Carbon Dioxide (22-30) mmol/L Glucose (74-99) mg/dL POC Glucose (mg/dL) 161 H 198 H (75-99) mg/dL Calcium (8.4-10.2) mg/dL Total Protein (6.3-8.2) g/dL 03/14/18 03/14/18 03/14/18 Range/Units 07:18 07:26 10:51 WBC (3.8-10.6) k/uL RBC (3.80-5.40) m/uL Hgb (11.4-16.0) gm/dL Hct (34.0-46.0) % Plt Count (150-450) k/uL Lymphocytes # (1.0-4.8) k/uL Chloride 114 H (98-107) mmol/L Carbon Dioxide 18 L (22-30) mmol/L Glucose 111 H (74-99) mg/dL POC Glucose (mg/dL) 122 H 145 H (75-99) mg/dL Calcium 8.3 L (8.4-10.2) mg/dL Total Protein 6.1 L (6.3-8.2) g/dL Assessment and Plan Plan: Assessment and Plan (1) Acute myeloid leukemia Narrative/Plan: Cont chemo without adjustment Labs to include CBC and CMP daily daily f/u Meds reviewed, no changes, as needed medications for chemotherapy side effects available evaluate daily, CXR will be ordered. May benefit from diuretic if appears fluid overloaded, with increased edema and diminished lower lobes Anticipate Saturday a.m. discharge after lab evaluation.
--- NOTE | 2018-03-14 14:21 | P.PN ---
Subjective Progress Note Date: 03/14/18 Progress note being dictated for Dr. Amos. Interval history:Patient was admitted for chemotherapy second cycle with cytarabine for acute myeloid leukemia. Patient is feeling well today received 2 doses of chemotherapy. Uric acid is essentially within normal limits. Potassium is within normal limits. Patient is receiving IV fluids at 1 25 mL per hour. Constitutional: Denied any fatigue denied any fever. Cardio vascular: denied any chest pain, palpitations Gastrointestinal denied any nausea vomiting Pulmonary: Denied any shortness of breath cough Neurologic denied any new focal deficits 03/13/2018 receiving IV fluid hydration, chemotherapy tomorrow. Good diet intake, no nausea or vomiting. Afebrile. Hemoglobin 8.4, platelets 94, neutrophil 91. Denies lightheadedness dizziness or focal deficits. Denies chest pain, palpitations or increased shortness of breath. 03/14/2018 scheduled for chemotherapy this afternoon. Good diet intake, no nausea or vomiting. No diarrhea. Afebrile. Hemoglobin 7.9, platelets 87, neutrophils 86. Denies shortness of breath, maintaining O2 sats in the 90s on room air. Denies chest pain or palpitations. Objective - Vital Signs Vital signs: Vital Signs Temp 97.0 F L 03/14/18 05:51 Pulse 55 L 03/14/18 08:00 Resp 16 03/14/18 08:00 BP 143/83 03/14/18 05:51 Pulse Ox 93 L 03/14/18 05:51 Intake & Output 03/13/18 03/14/18 03/14/18 18:59 06:59 18:59 Intake Total 1200 2280 Balance 1200 2280 Intake: Intake, IV Titration 1200 1800 Amount Sodium Chloride 0.9% 1, 1200 1800 000 ml @ 150 mls/hr IV . Q6H40M [facility] Rx#:[id number] Oral 480 Other: Voiding Method Toilet Toilet Toilet # Voids 4 - Exam GENERAL: The patient is sitting up in bed, alert and oriented x3, no acute distress. HEENT: Pupils are round and equally reacting to light. EOMI. No scleral icterus. No conjunctival pallor. Normocephalic, atraumatic. CARDIOVASCULAR: S1 and S2 present. No murmurs, rubs, or gallops. PULMONARY: Chest is clear to auscultation, no wheezing or crackles. ABDOMEN: Soft, nontender, nondistended, normoactive bowel sounds. No palpable organomegaly. MUSCULOSKELETAL: No joint swelling or deformity. EXTREMITIES: No cyanosis, clubbing, or pedal edema. NEUROLOGICAL: Gross neurological examination did not reveal any focal deficits. SKIN: No rashes. - Labs CBC & Chem 7: 03/14/18 07:18 03/14/18 07:18 Labs: Abnormal Lab Results - Last 24 Hours (Table) 03/13/18 03/13/18 03/14/18 Range/Units 17:33 20:02 07:18 WBC 3.2 L (3.8-10.6) k/uL RBC 2.55 L (3.80-5.40) m/uL Hgb 7.9 L (11.4-16.0) gm/dL Hct 25.1 L (34.0-46.0) % Plt Count 87 L (150-450) k/uL Lymphocytes # 0.3 L (1.0-4.8) k/uL Chloride (98-107) mmol/L Carbon Dioxide (22-30) mmol/L Glucose (74-99) mg/dL POC Glucose (mg/dL) 161 H 198 H (75-99) mg/dL Calcium (8.4-10.2) mg/dL Total Protein (6.3-8.2) g/dL 03/14/18 03/14/18 03/14/18 Range/Units 07:18 07:26 10:51 WBC (3.8-10.6) k/uL RBC (3.80-5.40) m/uL Hgb (11.4-16.0) gm/dL Hct (34.0-46.0) % Plt Count (150-450) k/uL Lymphocytes # (1.0-4.8) k/uL Chloride 114 H (98-107) mmol/L Carbon Dioxide 18 L (22-30) mmol/L Glucose 111 H (74-99) mg/dL POC Glucose (mg/dL) 122 H 145 H (75-99) mg/dL Calcium 8.3 L (8.4-10.2) mg/dL Total Protein 6.1 L (6.3-8.2) g/dL Assessment and Plan Assessment: -Acute myeloid leukemia: Inpatient chemotherapy -History of asthma not in acute exacerbation -Obesity -Hypertension -Hyperlipidemia -Hypothyroidism -Anxiety depression -Type 2 diabetes mellitus Plan: Continue on current medication regime ,monitoring and symptomatic treatment. Scheduled for chemotherapy this afternoon. Aggressive pulmonary toileting with incentive spirometer reinforced. Increase ambulation as tolerated. Follow closely with oncology. Discharge planning in progress for tomorrow pending oncology clearance. The impression and plan of care has been dictated as directed. : I performed a history and examination of this patient, discussed the same with the dictator. I agree with the dictator's note ,documented as a scribe. Any additional findings or plans will be noted.
--- NOTE | 2018-03-14 15:20 | XR ---
EXAMINATION TYPE: XR chest 2V DATE OF EXAM: 03/14/2018 COMPARISON: Chest x-ray January 27, 2018 HISTORY: Shortness of breath. TECHNIQUE: Frontal and lateral views of the chest are obtained. FINDINGS: There is stable left-sided PICC line. There is no new small effusion on lateral view diffi cult to localize on frontal view. No suspicious new focal airspace opacity or pneumothorax is eviden t. The cardiac silhouette size is stable and enlarged. There is atherosclerotic and ectatic descendin g aorta. The osseous structures are intact. IMPRESSION: Persistent cardiomegaly with new small effusion side uncertain. No suspicious new acute focal infiltrate identified.
[2018-03-14] MEDS: ONDANSETRON 16 MG in SODIUM CHLORIDE 0.9% 50 ML IVPB SCH (16:00)
[2018-03-14] MEDS: DEXAMETHASONE SOD PHOSPHATE 10 MG/ML 1 ML VIAL IV SCH (16:00)
[2018-03-14] MEDS: CYTARABINE IV SCH (16:49)
[2018-03-14] MEDS: SODIUM CHLORIDE 0.9% IV SCH (16:49)
[2018-03-14 17:24] LABS: Glucose,Whole Blood 129 mg/dL (75-99)
[2018-03-14 20:09] LABS: Glucose,Whole Blood 197 mg/dL (75-99)
[2018-03-14] MEDS: MONTELUKAST 10 MG TAB PO SCH (21:07)
[2018-03-14] MEDS: ZOLPIDEM 10 MG TAB PO PRN (23:24)
[2018-03-15] MEDS: CYTARABINE IV SCH (04:53)
[2018-03-15] MEDS: SODIUM CHLORIDE 0.9% IV SCH (04:53)
[2018-03-15] MEDS: ONDANSETRON 4 MG/2 ML VIAL IVP PRN (04:55)
[2018-03-15 04:59] VITALS: BP 140/72; PULSE 56; RESP 18; TEMP 97.2
[2018-03-15] MEDS: SODIUM CHLORIDE 0.9% 1,000 ML IV SCH (05:55)
[2018-03-15] MEDS: LEVOTHYROXINE 125 MCG TAB PO SCH (06:24)
[2018-03-15 07:11] LABS: Glucose,Whole Blood 218 mg/dL (75-99)
[2018-03-15] MEDS: FLUTICASONE 50MCG/SPRAY NASAL 16GM EA NOSTRIL SCH (08:14)
[2018-03-15] MEDS: SALT AND SODA MOUTHWASH 1,000 ML PO SCH ×2 (08:14→13:19)
[2018-03-15] MEDS: INSULIN ASPART 100 UNIT/ML 1 ML 10 ML VIAL SQ SCH ×2 (08:14→13:18)
[2018-03-15] MEDS: ENOXAPARIN 40 MG/0.4 ML SYRINGE SQ SCH (08:15)
[2018-03-15] MEDS: LORATADINE 10 MG TAB PO SCH (08:15)
[2018-03-15] MEDS: PANTOPRAZOLE 40 MG TABLET PO SCH (08:15)
[2018-03-15] MEDS: ESCITALOPRAM 20 MG TAB PO SCH (08:16)
[2018-03-15] MEDS: ATORVASTATIN 20 MG TAB PO SCH (08:16)
[2018-03-15] MEDS: METOPROLOL TARTRATE 50 MG TAB PO SCH (08:16)
[2018-03-15] MEDS: prednisoLONE ACETATE 1% OPHTH DROPS 5 ML BTL BOTH EYES SCH ×2 (08:17→13:19)
[2018-03-15] MEDS: NYSTATIN 100,000 UNIT/GM POWD 15 GM TOPICAL SCH (08:19)
[2018-03-15 08:39] LABS: Basophils % (A) 0 %; Eosinophils % (A) 1 %; HCT 25.9 % (34.0-46.0); HGB 8.2 gm/dL (11.4-16.0); Hypochromasia Marked; Lymphocytes # (A) 0.1 k/uL (1.0-4.8); Lymphocytes % (A) 5 %; MCHC 31.5 g/dL (31.0-37.0); MCV 98.3 fL (80.0-100.0); Mean Platelet Volume 7.6; Monocytes % (A) 1 %; Neutrophils # (A) 2.7 k/uL (1.3-7.7); Neutrophils % (A) 93 %; RBC 2.63 m/uL (3.80-5.40); RDW 14.7 % (11.5-15.5); WBC 2.9 k/uL (3.8-10.6)
[2018-03-15] MEDS: SYMBICORT 160-4.5 MCG INHALER INHALATION SCH (08:41)
[2018-03-15 08:49] LABS: Platelet Count 80 k/uL (150-450)
[2018-03-15 09:12] LABS: ALT 41 U/L (9-52); AST 32 U/L (14-36); Albumin 3.7 g/dL (3.5-5.0); Alkaline Phosphatase 65 U/L (38-126); Anion Gap 13 mmol/L; Blood Urea Nitrogen 12 mg/dL (7-17); Calcium 8.7 mg/dL (8.4-10.2); Carbon Dioxide 19 mmol/L (22-30); Chloride 110 mmol/L (98-107); Glucose 213 mg/dL (74-99); Potassium 4.1 mmol/L (3.5-5.1); Sodium 142 mmol/L (137-145); Total Bilirubin 0.9 mg/dL (0.2-1.3); Total Protein 6.5 g/dL (6.3-8.2); Uric Acid 4.8 mg/dL (3.7-7.4)
--- NOTE | 2018-03-15 10:56 | P.PN ---
Subjective Patient was admitted for chemotherapy second cycle with cytarabine for acute myeloid leukemia. Patient is feeling well today received 2 doses of chemotherapy. Uric acid is essentially within normal limits. Potassium is within normal limits. Patient is receiving IV fluids at 1 25 mL per hour. 03/15/2018 No overnight events patient is clinically doing well patient is being discharged on prophylactic antibiotics area did Zofran as needed for nausea and vomiting. Constitutional: Denied any fatigue denied any fever. Cardio vascular: denied any chest pain, palpitations Gastrointestinal denied any nausea vomiting Pulmonary: Denied any shortness of breath cough Neurologic denied any new focal deficits Objective - Vital Signs Vital signs: Vital Signs Temp 97.2 F L 03/15/18 04:59 Pulse 56 L 03/15/18 04:59 Resp 18 03/15/18 04:59 BP 140/72 03/15/18 04:59 Pulse Ox 93 L 03/15/18 04:59 Intake & Output 03/14/18 03/15/18 03/15/18 18:59 06:59 18:59 Intake Total 1200 2440 Balance 1200 2440 Weight 125 kg Intake: Intake, IV Titration 1200 1450 Amount Sodium Chloride 0.9% 1, 1200 1450 000 ml @ 150 mls/hr IV . Q6H40M [facility] Rx#:[id number] Oral 990 Other: Voiding Method Toilet Toilet Toilet # Voids 2 - Exam PHYSICAL EXAMINATION: GENERAL: The patient is alert and oriented x3, not in any acute distress. Obese HEENT: Pupils are round and equally reacting to light. EOMI. No scleral icterus. No conjunctival pallor. Normocephalic, atraumatic. No pharyngeal erythema. No thyromegaly. CARDIOVASCULAR: S1 and S2 present. No murmurs, rubs, or gallops. PULMONARY: Chest is clear to auscultation, no wheezing or crackles. ABDOMEN: Soft, nontender, nondistended, normoactive bowel sounds. No palpable organomegaly. MUSCULOSKELETAL: No joint swelling or deformity. EXTREMITIES: No cyanosis, clubbing, or pedal edema. NEUROLOGICAL: Gross neurological examination did not reveal any focal deficits. SKIN: No rashes. - Labs CBC & Chem 7: 03/15/18 08:25 03/15/18 08:25 Labs: Abnormal Lab Results - Last 24 Hours (Table) 09/03/14/18 03/14/18 Range/Units 10:51 17:22 20:07 WBC (3.8-10.6) k/uL RBC (3.80-5.40) m/uL Hgb (11.4-16.0) gm/dL Hct (34.0-46.0) % Plt Count (150-450) k/uL Lymphocytes # (1.0-4.8) k/uL Chloride (98-107) mmol/L Carbon Dioxide (22-30) mmol/L Glucose (74-99) mg/dL POC Glucose (mg/dL) 145 H 129 H 197 H (75-99) mg/dL 03/15/18 03/15/18 03/15/18 Range/Units 07:10 08:25 08:25 WBC 2.9 L (3.8-10.6) k/uL RBC 2.63 L (3.80-5.40) m/uL Hgb 8.2 L (11.4-16.0) gm/dL Hct 25.9 L (34.0-46.0) % Plt Count 80 L (150-450) k/uL Lymphocytes # 0.1 L (1.0-4.8) k/uL Chloride 110 H (98-107) mmol/L Carbon Dioxide 19 L (22-30) mmol/L Glucose 213 H (74-99) mg/dL POC Glucose (mg/dL) 218 H (75-99) mg/dL Assessment and Plan Plan: -Acute myeloid leukemia: Inpatient chemotherapy with cytarabine continue with IV normal saline at 1 25 mL per hour as mentioned above uric acid and potassium are essentially within normal limits -Metabolic is doses secondary to hyperchloremia nonanion and gap -History of asthma not in acute exacerbation -Obesity -Hypertension -Hyperlipidemia -Hypothyroidism -Anxiety depression -Type 2 diabetes mellitus: Patient is clinically doing well will be discharged today on oral hypoglycemic agents.
[2018-03-15 11:31] LABS: Glucose,Whole Blood 223 mg/dL (75-99)
[2018-03-15] MEDS: CYANOCOBALAMIN 500 MCG TAB PO SCH (13:18)
[2018-03-15] MEDS: CALCIUM CARB-VIT D 500MG-200UN 1 EACH TAB PO SCH (13:18)
[2018-03-15] MEDS: FERROUS SULFATE 325 MG TAB PO SCH (13:18)
--- NOTE | 2018-03-15 14:12 | P.DS ---
Providers Date of admission: 03/10/18 07:48 Expected date of discharge: 03/15/18 Attending physician: Tung Atkinson Consults: 03/10/18 09:53 Consult Physician Routine Consulting Provider: David Amos Consult Reason/Comments: medical management Do you want consulting provider notified?: Already Contacted Primary care physician: Nikki [facility] Course: Ms. 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 She tolerated chemo very well. She did have increasing lower extremity swelling towards the end of her stay which is common for her from the IV fluids given. No respiratory compromise. She was discharged and instructed to resume her Lasix 20 mg twice a day at home and follow up in clinic for labs on Saturday and Saturday to monitor her blood counts. On the day of discharge her exam showed normal vitals, generalno acute distress ; HEENT- mucosa moist, no sores, lungsclear to auscultation bilaterally with bibasilar crackles, heart- regular rate and rhythm, abdomen- soft nontender, MSK - extremities 4/4 strength, neuroa&O 3, skin- no jaundice. Patient Condition at Discharge: Stable Plan - Discharge Summary Discharge Rx Participant: Yes New Discharge Prescriptions: New Acyclovir 400 mg PO BID #40 tablet Fluconazole [Diflucan] 100 mg PO DAILY #10 tab Levofloxacin [Levaquin] 500 mg PO DAILY #10 tab Ondansetron Odt [Zofran Odt] 4 mg PO Q8HR PRN #30 tab PRN Reason: Nausea And Vomiting No Action Omeprazole [PriLOSEC] 20 mg PO AC-BID Ferrous Sulfate [Iron (65 MG Elemental)] 325 mg PO DAILY Escitalopram Oxalate [Lexapro] 30 mg PO QAM Zolpidem [Ambien] 10 mg PO HS Loratadine [Claritin] 10 mg PO DAILY Fluticasone Nasal [place] [Flonase Nasal [place]] 1 spray EA NOSTRIL DAILY Atorvastatin [Lipitor] 20 mg PO DAILY Furosemide [Lasix] 20 mg PO BID Levothyroxine Sodium [Synthroid] 125 mcg PO DAILY Potassium Chloride [Klor-Con 20] 20 meq PO BID Montelukast [Singulair] 10 mg PO HS Metoprolol Tartrate [Lopressor] 50 mg PO BID Calcium Carbonate/Vitamin D3 [Calcium 600-Vit D3 400 Caplet] 1 tab PO DAILY Ipratropium-Albuterol Nebulize [Duoneb 0.5 mg-3 mg/3 ml Soln] 3 ml INHALATION RT-QID PRN PRN Reason: Shortness Of Breath Budesonide/Formoterol Fumarate [Symbicort 160-4.5 Mcg Inhaler] 2 puff INHALATION RT-BID Albuterol Inhaler [Ventolin Hfa Inhaler] 2 puff INHALATION RT-QID PRN PRN Reason: Shortness Of Breath Cyanocobalamin (Vitamin B-12) [Vitamin B-12] 1,000 mcg PO DAILY 90 Days #90 tablet Ondansetron [Zofran] 4 mg PO Q6HR PRN #45 tab PRN Reason: Nausea Discharge Medication List Escitalopram Oxalate [Lexapro] 30 mg PO QAM 05/04/16 [History] Ferrous Sulfate [Iron (65 MG Elemental)] 325 mg PO DAILY 05/04/16 [History] Omeprazole [PriLOSEC] 20 mg PO AC-BID 05/04/16 [History] Atorvastatin [Lipitor] 20 mg PO DAILY 10/26/16 [History] Fluticasone Nasal [place] [Flonase Nasal [place]] 1 spray EA NOSTRIL DAILY 10/26/16 [History] Loratadine [Claritin] 10 mg PO DAILY 10/26/16 [History] Zolpidem [Ambien] 10 mg PO HS 10/26/16 [History] Furosemide [Lasix] 20 mg PO BID 08/19/17 [History] Levothyroxine Sodium [Synthroid] 125 mcg PO DAILY 08/19/17 [History] Potassium Chloride [Klor-Con 20] 20 meq PO BID 08/19/17 [History] Calcium Carbonate/Vitamin D3 [Calcium 600-Vit D3 400 Caplet] 1 tab PO DAILY [History] Metoprolol Tartrate [Lopressor] 50 mg PO BID 10/08/17 [History] Montelukast [Singulair] 10 mg PO HS 10/08/17 [History] Albuterol Inhaler [Ventolin Hfa Inhaler] 2 puff INHALATION RT-QID PRN 10/29/17 [ History] Budesonide/Formoterol Fumarate [Symbicort 160-4.5 Mcg Inhaler] 2 puff INHALATION RT-BID 10/29/17 [History] Ipratropium-Albuterol Nebulize [Duoneb 0.5 mg-3 mg/3 ml Soln] 3 ml INHALATION RT -QID PRN 10/29/17 [History] Cyanocobalamin (Vitamin B-12) [Vitamin B-12] 1,000 mcg PO DAILY 90 Days #90 tablet 01/08/18 [Rx] Ondansetron [Zofran] 4 mg PO Q6HR PRN #45 tab 01/24/18 [Rx] Acyclovir 400 mg PO BID #40 tablet 03/14/18 [Rx] Fluconazole [Diflucan] 100 mg PO DAILY #10 tab 03/14/18 [Rx] Levofloxacin [Levaquin] 500 mg PO DAILY #10 tab 03/14/18 [Rx] Ondansetron Odt [Zofran Odt] 4 mg PO Q8HR PRN #30 tab 03/15/18 [Rx] Follow up Appointment(s)/Referral(s): [facility], [NON-STAFF] - 1-2 Days Tung Atkinson MD [STAFF PHYSICIAN] - 03/17/18 9:00 am Patient Instructions/Handouts: Acyclovir (By mouth), Fluconazole (By mouth), Ondansetron (By mouth), Levofloxacin (By mouth), Acute Myeloid Leukemia (DC) Activity/Diet/Wound Care/Special Instructions: Diflucan, acyclovir and levaquin erx to [facility] 03/14/18. Angelika James. This is for antifungal, antiviral and antibacterial coverage post chemo. Activity as tolerated Diet as tolerated Discharge Disposition: HOME SELF-CARE
== END 2018-03-15 15:08 | disposition home health service (06) | DRG 838 ==
LOC: 2ORMAIN 07:48 → 5ONC 07:51
PROVIDERS: ADMIT Internal Medicine Hematology & Oncology; ATTEND Internal Medicine Hematology & Oncology
PROC: XW033B3 Introduction of Cytarabine and Daunorubicin Liposome Antineoplastic into Peripheral Vein, Percutaneous Approach, New Technology Group 3 (ICD-10-PCS; principal; 2018-03-10 12:30)
PROC: 02HV33Z Insertion of Infusion Device into Superior Vena Cava, Percutaneous Approach (ICD-10-PCS; 2018-03-10 12:30)
DX: Z51.11 Encounter for antineoplastic chemotherapy (principal); C92.00 Acute myeloblastic leukemia, not having achieved remission; Z68.42 Body mass index [BMI] 45.0-49.9, adult; E87.2 Acidosis; E03.9 Hypothyroidism, unspecified; E11.42 Type 2 diabetes mellitus with diabetic polyneuropathy; E66.01 Morbid (severe) obesity due to excess calories; E78.5 Hyperlipidemia, unspecified; I10 Essential (primary) hypertension; J45.909 Unspecified asthma, uncomplicated; K21.9 Gastro-esophageal reflux disease without esophagitis; K76.0 Fatty (change of) liver, not elsewhere classified; D50.9 Iron deficiency anemia, unspecified; G47.00 Insomnia, unspecified; G89.29 Other chronic pain; M54.9 Dorsalgia, unspecified; F41.9 Anxiety disorder, unspecified; F32.9 Major depressive disorder, single episode, unspecified; K57.90 Diverticulosis of intestine, part unspecified, without perforation or abscess without bleeding; E87.8 Other disorders of electrolyte and fluid balance, not elsewhere classified; Z79.51 Long term (current) use of inhaled steroids; Z79.890 Hormone replacement therapy; Z79.899 Other long term (current) drug therapy; Z98.51 Tubal ligation status; Z98.42 Cataract extraction status, left eye; Z98.41 Cataract extraction status, right eye; Z96.1 Presence of intraocular lens; Z88.0 Allergy status to penicillin
CPT/HCPCS: 36569; 71046; 76937; 77001; 80053; 83036; 84550; 85025; 94640

== ENCOUNTER 2018-04-07 08:27 | Inpatient (IN) | payer OTHER ==
[2018-04-07] MEDS ORDERED: ALBUTEROL NEBULIZED 2.5 MG/3 ML INHALATION PRN (10:52)
[2018-04-07] MEDS: SODIUM CHLORIDE 0.9% 1,000 ML IV SCH ×2 (10:53→18:20)
[2018-04-07 11:10] LABS: Glucose,Whole Blood 166 mg/dL (75-99)
[2018-04-07 11:27] LABS: ALT 22 U/L (9-52); AST 28 U/L (14-36); Albumin 3.3 g/dL (3.5-5.0); Alkaline Phosphatase 113 U/L (38-126); Anion Gap 9 mmol/L; Blood Urea Nitrogen 6 mg/dL (7-17); Calcium 8.1 mg/dL (8.4-10.2); Carbon Dioxide 25 mmol/L (22-30); Chloride 106 mmol/L (98-107); Glucose 147 mg/dL (74-99); Potassium 3.4 mmol/L (3.5-5.1); Sodium 140 mmol/L (137-145); Total Bilirubin 1.2 mg/dL (0.2-1.3); Uric Acid 7.5 mg/dL (3.7-7.4)
[2018-04-07 11:52] LABS: Anisocytosis Moderate; HGB 7.1 gm/dL (11.4-16.0); MCH 30.7 pg (25.0-35.0); MCHC 33.6 g/dL (31.0-37.0); Macrocytosis Slight; Mean Platelet Volume 7.8; RDW 20.1 % (11.5-15.5)
[2018-04-07 11:59] LABS: MCV 91.4 fL (80.0-100.0)
[2018-04-07 12:00] LABS: Platelet Count 152 k/uL (150-450)
[2018-04-07] MEDS ORDERED: ALBUTEROL NEBULIZED 2.5 MG/3 ML INHALATION SCH (12:00)
[2018-04-07] MEDS: IPRATROPIUM-ALBUTEROL 3 ML NEB INHALATION PRN ×2 (12:10→21:04)
[2018-04-07 12:51] LABS: Band Neutrophils % 1 %; Metamyelocytes % 1 %; Neutrophils % (M) 87 %; Nucleated Red Blood Cells 2 /100 WBC (0-0); Total Cells Counted 100
[2018-04-07 12:52] LABS: Lymphocytes # (M) 0.51 k/uL (1.0-4.8); Metamyelocytes # (M) 0.06 k/uL (0); Monocytes # (M) 0.19 k/uL (0-1.0); WBC 6.4 k/uL (3.8-10.6)
[2018-04-07 12:53] LABS: Polychromasia Present; Toxic Granulation Present
[2018-04-07 12:54] LABS: Poikilocytosis (M) Present
--- NOTE | 2018-04-07 13:01 | P.HPIM ---
History of Present Illness H&P Date: 04/07/18 Chief Complaint: AML Ms. Brunner is admitted for her 2nd consolidation treatment with High dose cytarabine. Coming into today pt has some wheezing with congested cough, small amt of yellow sputum, no fever, chills, SOB, BABAR, activity intolerance. Appetite is fair, no nausea, indigestion, acute changes in bowel or bladder habits, swelling, bleeding or pain. Malignancy History: Pt found to be leukopenic on routine blood work 11/14/17, WBC was 2.8, mild neutropenia, MCV 103.2, CBC and CMP otherwise unremarkable, peripheral smear did not reveal any suspicious morphology. CT AP 10/29/17 was done due to abdominal pain revealed fatty liver and diverticulitis. 01/10/18 bone marrow biopsy was done, positive for AML, cytogenetics and FISH were positive for inversion 16. Induction with 7+3 protocol was started on 01/16/18, repeat bone marrow biopsy on 02/13/18 revealed no residual leukemia! 0.6-2% blasts, normal cytogenetics. Induction was complicated by neutropenic sepsis, pneumonia, ventilator dependent respiratory failure. She was evaluated by Dr. Johnston, no need for allogenic transplant due to favorable finding of inversion of 16. She had 1st induction 03/10/18 and did require supportive PRBCs and platelet transfusions. Review of Systems 14 point ROS is negative except as stated in HPI Past Medical History Past Medical History: Asthma, Blood Disorder, Cancer, Diabetes Mellitus, GERD/ Reflux, Hyperlipidemia, Hypertension, Thyroid Disorder Additional Past Medical History / Comment(s): Leukopenia noted on routine labwork-diagnosed with AML 12/2017 with induction chemo complicated by neutropenic sepsis/pneumonia/respiratory failure and was intubated, chronic bronchial asthma, NIDDM type II, chronic back pain, neuropathy L hand, L hand 2nd and 3rd fingers are "locking up" at times, bilateral carpal tunnel, hypothyroid, iron deficiency anemia, insomnia, sinus problems;diverticulitis. History of Any Multi-Drug Resistant Organisms: None Reported Past Surgical History: Adenoidectomy, Heart Catheterization, Tonsillectomy, Tubal Ligation Additional Past Surgical History / Comment(s): BMAs, bronchoscopy with washing, picc lines, carpel tunnel right wrist, bilateral cataract removal, bilateral laser eye surgery/lens implants, colonoscopy, epidural injections. Past Anesthesia/Blood Transfusion Reactions: No Reported Reaction Additional Past Anesthesia/Blood Transfusion Reaction / Comment(s): Pt has received platelets and blood transfusions without reaction. Past Psychological History: No Psychological Hx Reported Smoking Status: Never smoker Past Alcohol Use History: None Reported Past Drug Use History: None Reported - Past Family History Mother Family Medical History: Cancer Father Family Medical History: No Reported History Additional Family Medical History / Comment(s): Father is living. Medications and Allergies Home Medications Medication Instructions Recorded Confirmed Type Escitalopram Oxalate [Lexapro] 30 mg PO QAM 05/04/16 04/07/18 History Ferrous Sulfate [Iron (65 MG 325 mg PO DAILY 05/04/16 04/07/18 History Elemental)] Omeprazole [PriLOSEC] 20 mg PO AC-BID 05/04/16 04/07/18 History Atorvastatin [Lipitor] 20 mg PO DAILY 10/26/16 04/07/18 History Fluticasone Nasal [place] [Flonase 1 spray EA NOSTRIL DAILY 10/26/16 04/07/18 History Nasal [place]] Loratadine [Claritin] 10 mg PO DAILY 10/26/16 04/07/18 History Zolpidem [Ambien] 10 mg PO HS 10/26/16 04/07/18 History Furosemide [Lasix] 20 mg PO BID 08/19/17 04/07/18 History Levothyroxine Sodium [Synthroid] 125 mcg PO DAILY 08/19/17 04/07/18 History Potassium Chloride [Klor-Con 20] 20 meq PO BID 08/19/17 04/07/18 History Calcium Carbonate/Vitamin D3 1 tab PO DAILY 10/08/17 04/07/18 History [Calcium 600-Vit D3 400 Caplet] Metoprolol Tartrate [Lopressor] 50 mg PO BID 10/08/17 04/07/18 History Montelukast [Singulair] 10 mg PO HS 10/08/17 04/07/18 History Albuterol Inhaler [Ventolin Hfa 2 puff INHALATION RT-QID PRN 10/29/17 04/07/18 History Inhaler] Budesonide/Formoterol Fumarate 2 puff INHALATION RT-BID 10/29/17 04/07/18 History [Symbicort 160-4.5 Mcg Inhaler] Ipratropium-Albuterol Nebulize 3 ml INHALATION RT-QID PRN 10/29/17 04/07/18 History [Duoneb 0.5 mg-3 mg/3 ml Soln] Cyanocobalamin (Vitamin B-12) 1,000 mcg PO DAILY 90 Days #90 01/08/18 04/07/18 Rx [Vitamin B-12] tablet Ondansetron [Zofran] 4 mg PO Q6HR PRN #45 tab 01/24/18 04/07/18 Rx Acyclovir 400 mg PO BID #40 tablet 03/14/18 04/07/18 Rx Fluconazole [Diflucan] 100 mg PO DAILY #10 tab 03/14/18 04/07/18 Rx Ondansetron Odt [Zofran Odt] 4 mg PO Q8HR PRN #30 tab 03/15/18 04/07/18 Rx Allergies Allergy/AdvReac Type Severity Reaction Status Date / Time Penicillins Allergy Rash/Hives Verified 04/07/18 11:08 Physical Exam Vitals: Vital Signs Temp Pulse Pulse Resp BP Pulse Ox 04/07/18 12:26 84 04/07/18 12:13 80 04/07/18 09:00 97.9 F 80 20 109/60 96 Intake and Output 04/06/18 04/07/18 04/07/18 22:59 06:59 14:59 Other: Weight 121.5 kg - Constitutional General appearance: cooperative, no acute distress, obese - EENT Eyes: anicteric sclerae, EOMI, normal appearance ENT: hearing grossly normal, normal oropharynx - Neck Neck: no lymphadenopathy - Respiratory audible wheeze and congested sounding cough Respiratory: bilateral: CTA - Cardiovascular Rhythm: regular Heart sounds: normal: S1, S2 Abnormal Heart Sounds: systolic murmur leg Peripheral Edema: bilateral: None - Gastrointestinal General gastrointestinal: no absent bowel sounds, no decreased bowel sounds, no distended, no hepatomegaly, no hyperactive bowel sounds, normal bowel sounds, no organomegaly, no rigid, no scaphoid, soft, no splenomegaly, no tenderness, no umbilical hernia, no ventral hernia - Integumentary Integumentary: normal turgor, pale - Neurologic Neurologic: CNII-XII intact - Musculoskeletal Musculoskeletal: strength equal bilaterally - Psychiatric Psychiatric: A&O x's 3, appropriate affect, intact judgment & insight Results CBC & Chem 7: 04/07/18 10:52 04/07/18 10:52 Labs: Abnormal Lab Results - Last 24 Hours (Table) 04/07/18 04/07/18 04/07/18 Range/Units 10:52 10:52 11:09 RBC 2.30 L (3.80-5.40) m/uL Hgb 7.1 L (11.4-16.0) gm/dL Hct 21.0 L (34.0-46.0) % RDW 20.1 H (11.5-15.5) % Potassium 3.4 L (3.5-5.1) mmol/L BUN 6 L (7-17) mg/dL Glucose 147 H (74-99) mg/dL POC Glucose (mg/dL) 166 H (75-99) mg/dL Uric Acid 7.5 H (3.7-7.4) mg/dL Calcium 8.1 L (8.4-10.2) mg/dL Total Protein 6.0 L (6.3-8.2) g/dL Albumin 3.3 L (3.5-5.0) g/dL Thrombosis Risk Factor Assmnt - DVT/VTE Prophylaxis DVT/VTE Prophylaxis: Mechanical Prophylaxis ordered - Choose All That Apply Any of the Below Risk Factors Present?: Yes Each Factor Represents 1 point: Age 41-60 years, Obesity (BMI >25) Other Risk Factors: Yes Each Risk Factor Represents 2 Points: Malignancy Other congenital or acquired thrombophilia - If yes, enter type in comment: No Thrombosis Risk Factor Assessment Total Risk Factor Score: 4 Thrombosis Risk Factor Assessment Level: Moderate Risk Assessment and Plan (1) Acute myeloid leukemia Narrative/Plan: Admitted for 2nd cycle of consolidation with high dose cytarabine. Labs daily Daily follow up Home meds reconciled Current Visit: Yes Status: Acute Priority: High Code(s): C92.00 - ACUTE MYELOBLASTIC LEUKEMIA, NOT HAVING ACHIEVED REMISSION SNOMED Code(s): 91589132 (2) Antineoplastic chemotherapy induced anemia Narrative/Plan: Conservative transfusion only. No blood today, Hgb monitoring daily Current Visit: Yes Status: Chronic Priority: Medium Code(s): D64.81 - ANEMIA DUE TO ANTINEOPLASTIC CHEMOTHERAPY; T45.1X5A - ADVERSE EFFECT OF ANTINEOPLASTIC AND IMMUNOSUP DRUGS, INIT SNOMED Code(s): 076186414 (3) Cough Narrative/Plan: Pt home respiratory meds reconciled. Levaquin ordered for cough. CXR in AM if progressive or persistent Current Visit: Yes Status: Acute Priority: High Code(s): R05 - COUGH SNOMED Code(s): 51602823 (4) Elevated uric acid in blood Narrative/Plan: Mild elevation, allopurinol ordered, lab ordered daily Current Visit: Yes Status: Acute Priority: Medium Code(s): E79.0 - HYPERURICEMIA W/O SIGNS OF INFLAM ARTHRIT AND TOPHACEOUS DIS SNOMED Code(s): 80752393 Plan: Home meds reconciled GI/DVT prophylaxis Follow up daily Attests: I have performed H&P and developed impression and plan of care of patient, discussed with dictator. I agree with dictated note, documented as a scribe.
[2018-04-07] MEDS: ESCITALOPRAM 10 MG TAB PO SCH (13:23)
[2018-04-07] MEDS: ATORVASTATIN 20 MG TAB PO SCH (13:23)
[2018-04-07] MEDS: CALCIUM CARB-VIT D 500MG-200UN 1 EACH TAB PO SCH (13:23)
[2018-04-07] MEDS: FLUTICASONE 50MCG/SPRAY NASAL 16GM EA NOSTRIL SCH (13:24)
[2018-04-07] MEDS: FERROUS SULFATE 325 MG TAB PO SCH (13:24)
[2018-04-07] MEDS: ACYCLOVIR 200 MG CAP PO SCH ×2 (13:25→21:18)
[2018-04-07] MEDS: LEVOFLOXACIN 500 MG TAB PO SCH (13:25)
[2018-04-07] MEDS: FUROSEMIDE 20 MG TAB PO SCH ×2 (13:26→16:18)
[2018-04-07] MEDS: FLUCONAZOLE 100 MG TAB PO SCH (13:26)
[2018-04-07] MEDS: METOPROLOL TARTRATE 50 MG TAB PO SCH ×2 (13:26→21:17)
[2018-04-07] MEDS: CYANOCOBALAMIN 500 MCG TAB PO SCH (13:26)
[2018-04-07] MEDS: ALLOPURINOL 300 MG TAB PO SCH (13:27)
[2018-04-07] MEDS: POTASSIUM CHLORIDE ER 20 MEQ TAB.ER PO SCH ×2 (13:27→21:17)
[2018-04-07] MEDS: SALT AND SODA MOUTHWASH 1,000 ML PO SCH ×3 (13:27→21:19)
[2018-04-07] MEDS: DEXAMETHASONE SOD PHOSPHATE 10 MG/ML 1 ML VIAL IV SCH (13:28)
[2018-04-07] MEDS: ONDANSETRON 16 MG in SODIUM CHLORIDE 0.9% 50 ML IVPB SCH (13:42)
[2018-04-07] MEDS: CYTARABINE IV SCH (14:40)
[2018-04-07] MEDS: SODIUM CHLORIDE 0.9% IV SCH (14:40)
[2018-04-07 15:51] VITALS: BMI 48.9
[2018-04-07 17:24] LABS: Glucose,Whole Blood 211 mg/dL (75-99)
[2018-04-07] MEDS: INSULIN ASPART 100 UNIT/ML 1 ML 10 ML VIAL SQ SCH ×2 (18:22→21:23)
[2018-04-07 20:09] LABS: Glucose,Whole Blood 257 mg/dL (75-99)
--- NOTE | 2018-04-07 20:26 | P.CON ---
Consult Note - . Consult date: 04/07/18 Assessment/Plan:: Chief Complaint: AML - Reason for Consult Determinations regarding diabetes mellitus hypertensive medications. Ms. Brunner is admitted for her 2nd consolidation treatment with High dose cytarabine. Malignancy History: Pt found to be leukopenic on routine blood work 11/14/17, WBC was 2.8, mild neutropenia, MCV 103.2, CBC and CMP otherwise unremarkable, peripheral smear did not reveal any suspicious morphology. CT AP 10/29/17 was done due to abdominal pain revealed fatty liver and diverticulitis. 01/10/18 bone marrow biopsy was done, positive for AML, cytogenetics and FISH were positive for inversion 16. Induction with 7+3 protocol was started on 01/16/18, repeat bone marrow biopsy on 02/13/18 revealed no residual leukemia! 0.6-2% blasts, normal cytogenetics. Induction was complicated by neutropenic sepsis, pneumonia, ventilator dependent respiratory failure. She was evaluated by Dr. Johnston, no need for allogenic transplant due to favorable finding of inversion of 16. She had 1st induction 03/10/18 and did require supportive PRBCs and platelet transfusions. She has been having mild wheezing with cough. Productive sputum that is yellow in color. Patient denies having any fevers chills or rigors. No chest pain. Patient denies having any nausea vomiting or diarrhea. No dysuria or hematuria. Review of Systems REVIEW OF SYSTEMS: CONSTITUTIONAL: No fever, no malaise, no fatigue. HEENT: No recent visual problems or hearing problems. Denied any sore throat. CARDIOVASCULAR: No chest pain, orthopnea, PND, no palpitations, no syncope. PULMONARY: mild cough with suputum production, mild SOB GASTROINTESTINAL: No diarrhea, no nausea, no vomiting, no abdominal pain. Normoactive bowel sounds. NEUROLOGICAL: No headaches, no weakness, no numbness. HEMATOLOGICAL: Denies any bleeding or petechiae. GENITOURINARY: Denies any burning micturition, frequency, or urgency. MUSCULOSKELETAL/RHEUMATOLOGICAL: Denies any joint pain, swelling, or any muscle pain. ENDOCRINE: Denies any polyuria or polydipsia. The rest of the 14-point review of systems is negative. Past Medical History Past Medical History: Asthma, Blood Disorder, Cancer, Diabetes Mellitus, GERD/ Reflux, Hyperlipidemia, Hypertension, Thyroid Disorder Additional Past Medical History / Comment(s): Leukopenia noted on routine labwork-diagnosed with AML 12/2017 with induction chemo complicated by neutropenic sepsis/pneumonia/respiratory failure and was intubated, chronic bronchial asthma, NIDDM type II, chronic back pain, neuropathy L hand, L hand 2nd and 3rd fingers are "locking up" at times, bilateral carpal tunnel, hypothyroid, iron deficiency anemia, insomnia, sinus problems;diverticulitis. History of Any Multi-Drug Resistant Organisms: None Reported Past Surgical History: Adenoidectomy, Heart Catheterization, Tonsillectomy, Tubal Ligation Additional Past Surgical History / Comment(s): BMAs, bronchoscopy with washing, picc lines, carpel tunnel right wrist, bilateral cataract removal, bilateral laser eye surgery/lens implants, colonoscopy, epidural injections. Past Anesthesia/Blood Transfusion Reactions: No Reported Reaction Additional Past Anesthesia/Blood Transfusion Reaction / Comment(s): Pt has received platelets and blood transfusions without reaction. Past Psychological History: No Psychological Hx Reported Smoking Status: Never smoker Past Alcohol Use History: None Reported Past Drug Use History: None Reported - Past Family History Mother Family Medical History: Cancer Father Family Medical History: No Reported History Additional Family Medical History / Comment(s): Father is living. Active Medications Generic Name Dose Route Start Last Admin Trade Name Freq PRN Reason Stop Dose Admin Acyclovir 400 mg 04/07/18 11:00 04/07/18 13:25 Zovirax PO 400 mg BID STEPHEN Administration Albuterol/Ipratropium 3 ml 04/07/18 10:52 04/07/18 12:10 Duoneb 0.5 Mg-3 Mg/3 Ml Soln INHALATION 3 ml RT-QID PRN Administration Shortness Of Breath Allopurinol 300 mg 04/07/18 12:45 04/07/18 13:27 Zyloprim PO 300 mg DAILY STEPHEN Administration Atorvastatin Calcium 20 mg 04/07/18 11:00 04/07/18 13:23 Lipitor PO Not Given DAILY STEPHEN Budesonide/Formoterol Fumarate 2 puff 04/07/18 20:00 Symbicort 160-4.5 Mcg Inhaler INHALATION RT-BID STEPHEN Calcium Carbonate 1 each 04/07/18 11:00 04/07/18 13:23 Oscal 500+D PO Not Given DAILY STEPHEN Cyanocobalamin 1,000 mcg 04/07/18 11:00 04/07/18 13:26 Vitamin B-12 PO 1,000 mcg DAILY STEPHEN Administration Dexamethasone Sodium Phosphate 10 mg 04/07/18 13:00 04/07/18 13:28 Decadron IV 04/11/18 13:01 10 mg Q48H STEPHEN Administration Enoxaparin Sodium 40 mg 04/08/18 09:00 Lovenox SQ DAILY [facility] Escitalopram Oxalate 30 mg 04/07/18 11:00 04/07/18 13:23 Lexapro PO Not Given QAM STEPHEN Ferrous Sulfate 325 mg 04/07/18 11:00 04/07/18 13:24 Feosol PO Not Given DAILY STEPHEN Fluconazole 100 mg 04/07/18 11:00 04/07/18 13:26 Diflucan PO 100 mg DAILY STEPHEN Administration Fluticasone Propionate 1 spray 04/07/18 11:00 04/07/18 13:24 Flonase Nasal [place] EA NOSTRIL 1 spray DAILY STEPHEN Administration Furosemide 20 mg 04/07/18 11:00 04/07/18 16:18 Lasix PO Not Given BID@0900,1600 [facility] Ondansetron HCl 16 mg/ Sodium 58 mls @ 100 mls/hr 04/07/18 13:00 04/07/18 13: 42 Chloride IVPB 04/11/18 13:01 100 mls/hr Q48H STEPHEN Administration Cytarabine 6,000 mg/ 340 mls @ 113.333 mls/hr 04/07/18 14:00 04/07/18 14:40 Cytarabine 600 mg/ Sodium IV 04/11/18 16:59 113.333 mls/hr Chloride Q48H STEPHEN Administration Cytarabine 6,000 mg/ 340 mls @ 113.333 mls/hr 04/08/18 02:00 Cytarabine 600 mg/ Sodium IV 04/12/18 04:59 Chloride Q48H STEPHEN Sodium Chloride 1,000 mls @ 150 mls/hr 04/07/18 09:15 04/07/18 18:20 Saline 0.9% IV 150 mls/hr .Q6H40M STEPHEN Administration Insulin Aspart 0 unit 04/07/18 21:00 04/07/18 18:22 Novolog SQ 4 unit ACHS STEPHEN Administration Protocol Levofloxacin 500 mg 04/07/18 11:00 04/07/18 13:25 Levaquin PO 04/11/18 11:01 500 mg Q24H STEPHEN Administration Metoprolol Tartrate 50 mg 04/07/18 11:00 04/07/18 13:26 Lopressor PO Not Given BID STEPHEN Montelukast Sodium 10 mg 04/07/18 21:00 Singulair PO HS STEPHEN Potassium Chloride 20 meq 04/07/18 11:00 04/07/18 13:27 K-Dur 20 PO 20 meq BID STEPHEN Administration Sodium Bicarbonate 5 ml 04/07/18 11:00 04/07/18 16:18 PO 5 ml 5XD STEPHEN Administration Zolpidem Tartrate 10 mg 04/07/18 21:00 Ambien PO HS STEPHEN Allergies Allergy/AdvReac Type Severity Reaction Status Date / Time Penicillins Allergy Rash/Hives Verified 04/07/18 11:08 Vital Signs Temp Pulse Pulse Resp BP Pulse Ox 04/07/18 16:25 97.5 F L 85 20 127/71 92 L 04/07/18 15:00 98.7 F 89 20 130/78 93 L 04/07/18 14:52 97.5 F L 86 16 127/82 93 L 04/07/18 12:26 84 04/07/18 12:13 80 04/07/18 09:00 97.9 F 80 20 109/60 96 Intake and Output 04/07/18 04/07/18 04/07/18 06:59 14:59 22:59 Intake Total 930 Balance 930 Intake: Intake, IV Titration 450 Amount Sodium Chloride 0.9% 1, 450 000 ml @ 150 mls/hr IV . Q6H40M [facility] Rx#:[id number] Oral 480 Other: # Voids 2 Weight 121.5 kg PHYSICAL EXAMINATION: GENERAL: The patient is alert and oriented x3, not in any acute distress. Obese HEENT: Pupils are round and equally reacting to light. EOMI. No scleral icterus. No conjunctival pallor. Normocephalic, atraumatic. No pharyngeal erythema. No thyromegaly. CARDIOVASCULAR: S1 and S2 present. No murmurs, rubs, or gallops. PULMONARY: Chest is clear to auscultation, no wheezing or crackles. ABDOMEN: Soft, nontender, nondistended, normoactive bowel sounds. No palpable organomegaly. MUSCULOSKELETAL: No joint swelling or deformity. EXTREMITIES: No cyanosis, clubbing, or pedal edema. NEUROLOGICAL: Gross neurological examination did not reveal any focal deficits. SKIN: No rashes. Results CBC & Chem 7: 04/07/18 10:52 04/07/18 10:52 Labs: Abnormal Lab Results - Last 24 Hours (Table) 04/07/18 04/07/18 04/07/18 Range/Units 10:52 10:52 11:09 RBC 2.30 L (3.80-5.40) m/uL Hgb 7.1 L (11.4-16.0) gm/dL Hct 21.0 L (34.0-46.0) % RDW 20.1 H (11.5-15.5) % Lymphocytes # (Manual) 0.51 L (1.0-4.8) k/uL Metamyelocytes # (Man) 0.06 H (0) k/uL Nucleated RBCs 2 H (0-0) /100 WBC Potassium 3.4 L (3.5-5.1) mmol/L BUN 6 L (7-17) mg/dL Glucose 147 H (74-99) mg/dL POC Glucose (mg/dL) 166 H (75-99) mg/dL Uric Acid 7.5 H (3.7-7.4) mg/dL Calcium 8.1 L (8.4-10.2) mg/dL Total Protein 6.0 L (6.3-8.2) g/dL Albumin 3.3 L (3.5-5.0) g/dL 04/07/18 04/07/18 Range/Units 17:23 20:08 RBC (3.80-5.40) m/uL Hgb (11.4-16.0) gm/dL Hct (34.0-46.0) % RDW (11.5-15.5) % Lymphocytes # (Manual) (1.0-4.8) k/uL Metamyelocytes # (Man) (0) k/uL Nucleated RBCs (0-0) /100 WBC Potassium (3.5-5.1) mmol/L BUN (7-17) mg/dL Glucose (74-99) mg/dL POC Glucose (mg/dL) 211 H 257 H (75-99) mg/dL Uric Acid (3.7-7.4) mg/dL Calcium (8.4-10.2) mg/dL Total Protein (6.3-8.2) g/dL Albumin (3.5-5.0) g/dL Assessment and Plan Plan: -Acute myeloid leukemia: Admitted for chemotherapy -History of asthma in mild exacerbation -Obesity -Hypertension -Hyperlipidemia -Hypothyroidism -Anxiety depression -Type 2 diabetes mellitus Plan: Patient have the patient on DuoNeb breathing treatments. Patient is not using any of her oral hypoglycemic agents will monitor her blood sugars. For her chronic medical problems appropriate medications have been resumed and will closely monitor her blood pressure and blood glucose levels. Thank you for the consult.
[2018-04-07] MEDS: SYMBICORT 160-4.5 MCG INHALER INHALATION SCH (21:04)
[2018-04-07] MEDS: MONTELUKAST 10 MG TAB PO SCH (21:18)
[2018-04-07] MEDS: ZOLPIDEM 10 MG TAB PO SCH (22:35)
[2018-04-08] MEDS: SODIUM CHLORIDE 0.9% IV SCH (01:46)
[2018-04-08] MEDS: CYTARABINE IV SCH (01:46)
[2018-04-08] MEDS: SODIUM CHLORIDE 0.9% 1,000 ML IV SCH ×4 (01:50→22:29)
[2018-04-08] MEDS: SALT AND SODA MOUTHWASH 1,000 ML PO SCH ×6 (01:50→23:00)
[2018-04-08 07:12] LABS: Glucose,Whole Blood 226 mg/dL (75-99)
[2018-04-08] MEDS: ALLOPURINOL 300 MG TAB PO SCH (07:52)
[2018-04-08] MEDS: FLUCONAZOLE 100 MG TAB PO SCH (07:52)
[2018-04-08] MEDS: ACYCLOVIR 200 MG CAP PO SCH ×2 (07:52→22:30)
[2018-04-08] MEDS: FLUTICASONE 50MCG/SPRAY NASAL 16GM EA NOSTRIL SCH (07:52)
[2018-04-08] MEDS: INSULIN ASPART 100 UNIT/ML 1 ML 10 ML VIAL SQ SCH ×4 (07:53→22:48)
[2018-04-08] MEDS: ESCITALOPRAM 10 MG TAB PO SCH (07:54)
[2018-04-08] MEDS: ATORVASTATIN 20 MG TAB PO SCH (07:55)
[2018-04-08] MEDS: CALCIUM CARB-VIT D 500MG-200UN 1 EACH TAB PO SCH (07:55)
[2018-04-08] MEDS: ENOXAPARIN 40 MG/0.4 ML SYRINGE SQ SCH (07:55)
[2018-04-08] MEDS: CYANOCOBALAMIN 500 MCG TAB PO SCH (07:55)
[2018-04-08] MEDS: prednisoLONE ACETATE 1% OPHTH DROPS 5 ML BTL BOTH EYES SCH ×4 (07:56→22:31)
[2018-04-08] MEDS: POTASSIUM CHLORIDE ER 20 MEQ TAB.ER PO SCH ×2 (07:56→22:31)
[2018-04-08] MEDS: FUROSEMIDE 20 MG TAB PO SCH ×2 (07:56→17:10)
[2018-04-08] MEDS: METOPROLOL TARTRATE 50 MG TAB PO SCH ×2 (07:56→22:30)
[2018-04-08] MEDS: FERROUS SULFATE 325 MG TAB PO SCH (07:56)
[2018-04-08 08:06] LABS: ALT 28 U/L (9-52); AST 26 U/L (14-36); Albumin 3.5 g/dL (3.5-5.0); Alkaline Phosphatase 106 U/L (38-126); Anion Gap 8 mmol/L; Blood Urea Nitrogen 8 mg/dL (7-17); Calcium 8.1 mg/dL (8.4-10.2); Carbon Dioxide 22 mmol/L (22-30); Chloride 111 mmol/L (98-107); Glucose 205 mg/dL (74-99); Potassium 4.5 mmol/L (3.5-5.1); Sodium 141 mmol/L (137-145); Total Bilirubin 1.6 mg/dL (0.2-1.3); Total Protein 6.3 g/dL (6.3-8.2); Uric Acid 5.9 mg/dL (3.7-7.4)
[2018-04-08] MEDS: IPRATROPIUM-ALBUTEROL 3 ML NEB INHALATION PRN ×2 (08:14→19:41)
[2018-04-08] MEDS: SYMBICORT 160-4.5 MCG INHALER INHALATION SCH ×2 (08:14→19:41)
[2018-04-08 08:15] LABS: Anisocytosis Moderate; Basophils % (A) 0 %; Eosinophils % (A) 0 %; Hypochromasia Slight; Lymphocytes # (A) 0.3 k/uL (1.0-4.8); Lymphocytes % (A) 6 %; MCHC 32.9 g/dL (31.0-37.0); MCV 94.1 fL (80.0-100.0); Macrocytosis Slight; Mean Platelet Volume 7.8; Monocytes # (A) 0.4 k/uL (0-1.0); Monocytes % (A) 7 %; Neutrophils # (A) 4.5 k/uL (1.3-7.7); Neutrophils % (A) 86 %; Platelet Count 144 k/uL (150-450); RBC 2.23 m/uL (3.80-5.40); RDW 20.5 % (11.5-15.5); WBC 5.3 k/uL (3.8-10.6)
[2018-04-08 08:22] LABS: HGB 6.9 gm/dL (11.4-16.0)
--- NOTE | 2018-04-08 11:09 | P.PN ---
Subjective Progress Note Date: 04/08/18 Principal diagnosis: AML, admitted for continuous IV infusion chemotherapy with high-dose Rhonda-C Patient seen today in follow-up. She did not sleep well last night after her prednisone, she had some nausea, denies fevers, oral irritation, her cough is not progressive, no purulent sputum production, difficulty breathing, palpitations, indigestion, heartburn, vomiting, abdominal pain or distention, acute changes in bowel or bladder habits, except swelling, bleeding or pain. Patient is independently ambulatory Objective - Vital Signs Vital signs: Vital Signs Temp 98 F 04/08/18 08:00 Pulse 84 04/08/18 08:24 Resp 20 04/08/18 08:00 BP 128/82 04/08/18 08:00 Pulse Ox 95 04/08/18 08:00 Intake & Output 04/07/18 04/08/18 04/08/18 18:59 06:59 18:59 Intake Total 930 2050 Balance 930 2050 Weight 121.5 kg Intake: IV 250 Cytarabine/Pf 6,000 mg 250 Cytarabine/Pf 600 mg In Sodium Chloride 0.9% 250 ml @ 113.333 mls/hr IV Q48H [facility] Rx#:[id number] Intake, IV Titration 450 1800 Amount Sodium Chloride 0.9% 1, 450 1800 000 ml @ 150 mls/hr IV . Q6H40M [facility] Rx#:[id number] Oral 480 Other: Voiding Method Toilet Toilet # Voids 2 1 - Constitutional General appearance: Present: cooperative, no acute distress, obese - EENT Eyes: Present: anicteric sclerae, EOMI, normal appearance ENT: Present: hearing grossly normal, normal oropharynx - Respiratory Respiratory: bilateral: CTA - Cardiovascular Rhythm: regular Heart sounds: normal: S1, S2 Abnormal Heart Sounds: Absent: systolic murmur, diastolic murmur, rub, S3 Gallop , S4 Gallop, click, other - Peripheral edema leg Peripheral Edema: bilateral: Trace - Gastrointestinal General gastrointestinal: Present: normal bowel sounds, soft - Integumentary Integumentary: Present: pale - Neurologic Neurologic: Present: CNII-XII intact - Musculoskeletal Musculoskeletal: Present: strength equal bilaterally - Psychiatric Psychiatric: Present: A&O x's 3, appropriate affect, intact judgment & insight - Labs CBC & Chem 7: 04/08/18 07:15 04/08/18 07:15 Labs: Abnormal Lab Results - Last 24 Hours (Table) 04/07/18 04/07/18 04/07/18 Range/Units 10:52 10:52 11:09 RBC 2.30 L (3.80-5.40) m/uL Hgb 7.1 L (11.4-16.0) gm/dL Hct 21.0 L (34.0-46.0) % RDW 20.1 H (11.5-15.5) % Plt Count (150-450) k/uL Lymphocytes # (1.0-4.8) k/uL Lymphocytes # (Manual) 0.51 L (1.0-4.8) k/uL Metamyelocytes # (Man) 0.06 H (0) k/uL Nucleated RBCs 2 H (0-0) /100 WBC Potassium 3.4 L (3.5-5.1) mmol/L Chloride (98-107) mmol/L BUN 6 L (7-17) mg/dL Glucose 147 H (74-99) mg/dL POC Glucose (mg/dL) 166 H (75-99) mg/dL Uric Acid 7.5 H (3.7-7.4) mg/dL Calcium 8.1 L (8.4-10.2) mg/dL Total Bilirubin (0.2-1.3) mg/dL Total Protein 6.0 L (6.3-8.2) g/dL Albumin 3.3 L (3.5-5.0) g/dL 04/07/18 04/07/18 04/08/18 Range/Units 17:23 20:08 07:10 RBC (3.80-5.40) m/uL Hgb (11.4-16.0) gm/dL Hct (34.0-46.0) % RDW (11.5-15.5) % Plt Count (150-450) k/uL Lymphocytes # (1.0-4.8) k/uL Lymphocytes # (Manual) (1.0-4.8) k/uL Metamyelocytes # (Man) (0) k/uL Nucleated RBCs (0-0) /100 WBC Potassium (3.5-5.1) mmol/L Chloride (98-107) mmol/L BUN (7-17) mg/dL Glucose (74-99) mg/dL POC Glucose (mg/dL) 211 H 257 H 226 H (75-99) mg/dL Uric Acid (3.7-7.4) mg/dL Calcium (8.4-10.2) mg/dL Total Bilirubin (0.2-1.3) mg/dL Total Protein (6.3-8.2) g/dL Albumin (3.5-5.0) g/dL 04/08/18 04/08/18 Range/Units 07:15 07:15 RBC 2.23 L (3.80-5.40) m/uL Hgb 6.9 L* (11.4-16.0) gm/dL Hct 21.0 L (34.0-46.0) % RDW 20.5 H (11.5-15.5) % Plt Count 144 L (150-450) k/uL Lymphocytes # 0.3 L (1.0-4.8) k/uL Lymphocytes # (Manual) (1.0-4.8) k/uL Metamyelocytes # (Man) (0) k/uL Nucleated RBCs (0-0) /100 WBC Potassium (3.5-5.1) mmol/L Chloride 111 H (98-107) mmol/L BUN (7-17) mg/dL Glucose 205 H (74-99) mg/dL POC Glucose (mg/dL) (75-99) mg/dL Uric Acid (3.7-7.4) mg/dL Calcium 8.1 L (8.4-10.2) mg/dL Total Bilirubin 1.6 H (0.2-1.3) mg/dL Total Protein (6.3-8.2) g/dL Albumin (3.5-5.0) g/dL Assessment and Plan (1) Acute myeloid leukemia Narrative/Plan: Admitted for 2nd cycle of consolidation with high dose cytarabine. Prednisone eyedrops were added last night. Supportive care medications ordered Labs daily Daily follow up Current Visit: Yes Status: Acute Priority: High Code(s): C92.00 - ACUTE MYELOBLASTIC LEUKEMIA, NOT HAVING ACHIEVED REMISSION SNOMED Code(s): 00486331 (2) Antineoplastic chemotherapy induced anemia Narrative/Plan: 1 unit of packed red blood cells irradiated ordered for hemoglobin of 6.9 today. Current Visit: Yes Status: Chronic Priority: Medium Code(s): D64.81 - ANEMIA DUE TO ANTINEOPLASTIC CHEMOTHERAPY; T45.1X5A - ADVERSE EFFECT OF ANTINEOPLASTIC AND IMMUNOSUP DRUGS, INIT SNOMED Code(s): 635553459 (3) Cough Narrative/Plan: Stable. Current Visit: Yes Status: Acute Priority: High Code(s): R05 - COUGH SNOMED Code(s): 05935662 (4) Elevated uric acid in blood Current Visit: Yes Status: Resolved Priority: Medium Code(s): E79.0 - HYPERURICEMIA W/O SIGNS OF INFLAM ARTHRIT AND TOPHACEOUS DIS SNOMED Code(s): 05965318 Plan: GI and DVT prophylaxis ordered
[2018-04-08 11:53] LABS: Glucose,Whole Blood 261 mg/dL (75-99)
[2018-04-08] MEDS: LEVOFLOXACIN 500 MG TAB PO SCH (12:01)
[2018-04-08] MEDS: PANTOPRAZOLE 40 MG TABLET PO SCH (17:10)
[2018-04-08 17:18] LABS: Glucose,Whole Blood 234 mg/dL (75-99)
[2018-04-08] MEDS: MONTELUKAST 10 MG TAB PO SCH (22:31)
[2018-04-08] MEDS: ZOLPIDEM 10 MG TAB PO SCH (22:36)
[2018-04-08 22:41] LABS: Glucose,Whole Blood 295 mg/dL (75-99)
--- NOTE | 2018-04-08 23:16 | P.PN ---
Subjective Progress Note Date: 04/08/18 Ms. Brunner is admitted for her 2nd consolidation treatment with High dose cytarabine. Malignancy History: Pt found to be leukopenic on routine blood work 11/14/17, WBC was 2.8, mild neutropenia, MCV 103.2, CBC and CMP otherwise unremarkable, peripheral smear did not reveal any suspicious morphology. CT AP 10/29/17 was done due to abdominal pain revealed fatty liver and diverticulitis. 01/10/18 bone marrow biopsy was done, positive for AML, cytogenetics and FISH were positive for inversion 16. Induction with 7+3 protocol was started on 01/16/18, repeat bone marrow biopsy on 02/13/18 revealed no residual leukemia! 0.6-2% blasts, normal cytogenetics. Induction was complicated by neutropenic sepsis, pneumonia, ventilator dependent respiratory failure. She was evaluated by Dr. Johnston, no need for allogenic transplant due to favorable finding of inversion of 16. She had 1st induction 03/10/18 and did require supportive PRBCs and platelet transfusions. She has been having mild wheezing with cough. Productive sputum that is yellow in color. Patient denies having any fevers chills or rigors. She has been started on Levofloxacin. REVIEW OF SYSTEMS: CONSTITUTIONAL: No fever, has fatigue and generalized weakness. CARDIOVASCULAR: No chest pain, orthopnea, PND, no palpitations, no syncope. PULMONARY: mild cough with suputum production, mild SOB GASTROINTESTINAL: No diarrhea, no nausea, no vomiting, no abdominal pain. Normoactive bowel sounds. NEUROLOGICAL: No headaches, no weakness, no numbness. Objective - Vital Signs Vital signs: Vital Signs Temp 98 F 04/08/18 12:00 Pulse 81 04/08/18 12:00 Resp 20 04/08/18 12:00 BP 127/69 04/08/18 12:00 Pulse Ox 95 04/08/18 12:00 Intake & Output 04/07/18 04/08/18 04/08/18 18:59 06:59 18:59 Intake Total 930 2050 1050 Balance 930 2050 1050 Weight 121.5 kg Intake: IV 250 Cytarabine/Pf 6,000 mg 250 Cytarabine/Pf 600 mg In Sodium Chloride 0.9% 250 ml @ 113.333 mls/hr IV Q48H [facility] Rx#:[id number] Intake, IV Titration 450 1800 1050 Amount Sodium Chloride 0.9% 1, 450 1800 1050 000 ml @ 150 mls/hr IV . Q6H40M [facility] Rx#:[id number] Oral 480 Other: Voiding Method Toilet Toilet # Voids 2 1 - Exam GENERAL: The patient is alert and oriented x3, not in any acute distress. Obese HEENT: Pupils are round and equally reacting to light. EOMI. No scleral icterus. No conjunctival pallor. Normocephalic, atraumatic. No pharyngeal erythema. No thyromegaly. CARDIOVASCULAR: S1 and S2 present. No murmurs, rubs, or gallops. PULMONARY: Chest is clear to auscultation, no wheezing or crackles. ABDOMEN: Soft, nontender, nondistended, normoactive bowel sounds. No palpable organomegaly. MUSCULOSKELETAL: No joint swelling or deformity. EXTREMITIES: No cyanosis, clubbing, or pedal edema. NEUROLOGICAL: Gross neurological examination did not reveal any focal deficits. SKIN: No rashes. - Labs CBC & Chem 7: 04/08/18 07:15 04/08/18 07:15 Labs: Abnormal Lab Results - Last 24 Hours (Table) 04/07/18 04/07/18 04/08/18 Range/Units 17:23 20:08 07:10 RBC (3.80-5.40) m/uL Hgb (11.4-16.0) gm/dL Hct (34.0-46.0) % RDW (11.5-15.5) % Plt Count (150-450) k/uL Lymphocytes # (1.0-4.8) k/uL Chloride (98-107) mmol/L Glucose (74-99) mg/dL POC Glucose (mg/dL) 211 H 257 H 226 H (75-99) mg/dL Calcium (8.4-10.2) mg/dL Total Bilirubin (0.2-1.3) mg/dL 04/08/18 04/08/18 04/08/18 Range/Units 07:15 07:15 11:41 RBC 2.23 L (3.80-5.40) m/uL Hgb 6.9 L* (11.4-16.0) gm/dL Hct 21.0 L (34.0-46.0) % RDW 20.5 H (11.5-15.5) % Plt Count 144 L (150-450) k/uL Lymphocytes # 0.3 L (1.0-4.8) k/uL Chloride 111 H (98-107) mmol/L Glucose 205 H (74-99) mg/dL POC Glucose (mg/dL) 261 H (75-99) mg/dL Calcium 8.1 L (8.4-10.2) mg/dL Total Bilirubin 1.6 H (0.2-1.3) mg/dL Assessment and Plan Assessment: ASSESMENT -Acute myeloid leukemia: Admitted for chemotherapy -History of asthma in mild exacerbation -Obesity -Hypertension -Hyperlipidemia -Hypothyroidism -Anxiety depression -Type 2 diabetes mellitus Plan: Continue with Levofloxacin and DuoNeb breathing treatments. Pt's BP has been WNL and blood sugars are high as she is on IV steroids, so she has been started on SSI.. For her chronic medical problems appropriate medications have been resumed and will closely monitor her blood pressure and blood glucose levels.
[2018-04-09] MEDS: SODIUM CHLORIDE 0.9% 1,000 ML IV SCH ×3 (01:15→20:51)
[2018-04-09] MEDS: LEVOTHYROXINE 125 MCG TAB PO SCH (05:21)
[2018-04-09] MEDS: SALT AND SODA MOUTHWASH 1,000 ML PO SCH ×5 (05:23→22:37)
[2018-04-09 06:59] LABS: Glucose,Whole Blood 183 mg/dL (75-99)
[2018-04-09] MEDS: SYMBICORT 160-4.5 MCG INHALER INHALATION SCH ×2 (07:54→21:07)
[2018-04-09] MEDS: IPRATROPIUM-ALBUTEROL 3 ML NEB INHALATION PRN ×4 (07:54→21:07)
[2018-04-09 07:57] LABS: Anisocytosis Slight; Basophils % (A) 0 %; Eosinophils % (A) 0 %; HCT 21.5 % (34.0-46.0); HGB 7.1 gm/dL (11.4-16.0); Hypochromasia Slight; Lymphocytes # (A) 0.3 k/uL (1.0-4.8); Lymphocytes % (A) 8 %; MCH 30.9 pg (25.0-35.0); MCHC 32.9 g/dL (31.0-37.0); MCV 94.1 fL (80.0-100.0); Macrocytosis Slight; Mean Platelet Volume 8.9; Monocytes # (A) 0.2 k/uL (0-1.0); Monocytes % (A) 5 %; Neutrophils # (A) 2.8 k/uL (1.3-7.7); Neutrophils % (A) 85 %; Platelet Count 124 k/uL (150-450); RBC 2.28 m/uL (3.80-5.40); RDW 19.3 % (11.5-15.5); WBC 3.3 k/uL (3.8-10.6)
[2018-04-09] MEDS: ESCITALOPRAM 10 MG TAB PO SCH (08:02)
[2018-04-09] MEDS: POTASSIUM CHLORIDE ER 20 MEQ TAB.ER PO SCH ×2 (08:03→20:14)
[2018-04-09] MEDS: FERROUS SULFATE 325 MG TAB PO SCH (08:04)
[2018-04-09] MEDS: ACYCLOVIR 200 MG CAP PO SCH ×2 (08:04→20:14)
[2018-04-09] MEDS: INSULIN ASPART 100 UNIT/ML 1 ML 10 ML VIAL SQ SCH ×4 (08:05→20:14)
[2018-04-09] MEDS: METOPROLOL TARTRATE 50 MG TAB PO SCH ×2 (08:05→20:14)
[2018-04-09] MEDS: FLUCONAZOLE 100 MG TAB PO SCH (08:05)
[2018-04-09] MEDS: CALCIUM CARB-VIT D 500MG-200UN 1 EACH TAB PO SCH (08:06)
[2018-04-09] MEDS: CYANOCOBALAMIN 500 MCG TAB PO SCH (08:06)
[2018-04-09] MEDS: ENOXAPARIN 40 MG/0.4 ML SYRINGE SQ SCH (08:06)
[2018-04-09] MEDS: FUROSEMIDE 20 MG TAB PO SCH ×2 (08:06→17:50)
[2018-04-09] MEDS: ATORVASTATIN 20 MG TAB PO SCH (08:06)
[2018-04-09] MEDS: FLUTICASONE 50MCG/SPRAY NASAL 16GM EA NOSTRIL SCH (08:08)
[2018-04-09] MEDS: PANTOPRAZOLE 40 MG TABLET PO SCH (08:09)
[2018-04-09] MEDS: ONDANSETRON 4 MG/2 ML VIAL IVP PRN (08:10)
[2018-04-09] MEDS: prednisoLONE ACETATE 1% OPHTH DROPS 5 ML BTL BOTH EYES SCH ×4 (08:10→20:13)
[2018-04-09] MEDS: LORATADINE 10 MG TAB PO SCH (08:10)
[2018-04-09 08:12] LABS: ALT 28 U/L (9-52); AST 23 U/L (14-36); Albumin 3.4 g/dL (3.5-5.0); Alkaline Phosphatase 83 U/L (38-126); Anion Gap 9 mmol/L; Blood Urea Nitrogen 12 mg/dL (7-17); Calcium 8.2 mg/dL (8.4-10.2); Carbon Dioxide 24 mmol/L (22-30); Chloride 110 mmol/L (98-107); Glucose 159 mg/dL (74-99); Potassium 4.4 mmol/L (3.5-5.1); Sodium 143 mmol/L (137-145); Total Bilirubin 1.4 mg/dL (0.2-1.3); Total Protein 6.3 g/dL (6.3-8.2); Uric Acid 4.8 mg/dL (3.7-7.4)
--- NOTE | 2018-04-09 09:10 | P.PN ---
Subjective Progress Note Date: 04/09/18 The patient reports some increased cough, with sputum that is now more radiation and clear. No history of any blood in the sputum. No history of fevers/chills/nausea/vomiting. Bowel movements are regular. Appetite is maintained. Objective - Vital Signs Vital signs: Vital Signs Temp 98 F 04/09/18 08:00 Pulse 76 04/09/18 08:08 Resp 20 04/09/18 08:00 BP 128/84 04/09/18 08:00 Pulse Ox 91 L 04/09/18 08:00 Intake & Output 04/08/18 04/09/18 04/09/18 18:59 06:59 18:59 Intake Total 1050 3830 Balance 1050 3830 Intake: IV 1500 Sodium Chloride 0.9% 1, 1500 000 ml @ 150 mls/hr IV . Q6H40M [facility] Rx#:[id number] Intake, IV Titration 1050 Amount Sodium Chloride 0.9% 1, 1050 000 ml @ 150 mls/hr IV . Q6H40M [facility] Rx#:[id number] Oral 2020 Blood Product 310 Rc Irr As1 Unit 310 [id number] Other: Voiding Method Toilet Toilet Toilet # Voids 3 - Constitutional General appearance: Present: no acute distress - EENT Eyes: Present: EOMI ENT: Present: hearing grossly normal, normal oropharynx - Respiratory Respiratory: bilateral: wheezing (Scattered, mild) - Cardiovascular Rhythm: regular Heart sounds: normal: S1, S2 - Gastrointestinal General gastrointestinal: Present: normal bowel sounds, soft - Integumentary Integumentary: Present: normal - Neurologic Neurologic: Present: CNII-XII intact - Musculoskeletal Musculoskeletal: Present: strength equal bilaterally - Psychiatric Psychiatric: Present: A&O x's 3, appropriate affect - Labs CBC & Chem 7: 04/09/18 07:30 04/09/18 07:30 Labs: Abnormal Lab Results - Last 24 Hours (Table) 04/08/18 04/08/18 04/08/18 Range/Units 11:41 12:40 17:16 WBC (3.8-10.6) k/uL RBC (3.80-5.40) m/uL Hgb (11.4-16.0) gm/dL Hct (34.0-46.0) % RDW (11.5-15.5) % Plt Count (150-450) k/uL Lymphocytes # (1.0-4.8) k/uL Chloride (98-107) mmol/L Glucose (74-99) mg/dL POC Glucose (mg/dL) 261 H 234 H (75-99) mg/dL Calcium (8.4-10.2) mg/dL Total Bilirubin (0.2-1.3) mg/dL Albumin (3.5-5.0) g/dL Crossmatch See Detail 04/08/18 04/09/18 04/09/18 Range/Units 22:39 06:58 07:30 WBC 3.3 L (3.8-10.6) k/uL RBC 2.28 L (3.80-5.40) m/uL Hgb 7.1 L (11.4-16.0) gm/dL Hct 21.5 L (34.0-46.0) % RDW 19.3 H (11.5-15.5) % Plt Count 124 L (150-450) k/uL Lymphocytes # 0.3 L (1.0-4.8) k/uL Chloride (98-107) mmol/L Glucose (74-99) mg/dL POC Glucose (mg/dL) 295 H 183 H (75-99) mg/dL Calcium (8.4-10.2) mg/dL Total Bilirubin (0.2-1.3) mg/dL Albumin (3.5-5.0) g/dL Crossmatch 04/09/18 Range/Units 07:30 WBC (3.8-10.6) k/uL RBC (3.80-5.40) m/uL Hgb (11.4-16.0) gm/dL Hct (34.0-46.0) % RDW (11.5-15.5) % Plt Count (150-450) k/uL Lymphocytes # (1.0-4.8) k/uL Chloride 110 H (98-107) mmol/L Glucose 159 H (74-99) mg/dL POC Glucose (mg/dL) (75-99) mg/dL Calcium 8.2 L (8.4-10.2) mg/dL Total Bilirubin 1.4 H (0.2-1.3) mg/dL Albumin 3.4 L (3.5-5.0) g/dL Crossmatch Assessment and Plan (1) Acute myeloid leukemia Narrative/Plan: The patient achieved remission induction, and is currently on consolidation chemotherapy. She is on day #3 of high-dose cytarabine. She is tolerating chemotherapy itself well so far subjectively. Continue treatment per protocol, with clinical exams, and labs for monitoring Current Visit: Yes Status: Acute Priority: High Code(s): C92.00 - ACUTE MYELOBLASTIC LEUKEMIA, NOT HAVING ACHIEVED REMISSION SNOMED Code(s): 81570273 (2) Pancytopenia Narrative/Plan: Due to antineoplastic chemotherapy. The patient received a unit of blood yesterday for hemoglobin of 6.9. Hemoglobin today was 7.1. He suboptimal response is likely due to ongoing chemotherapy. Other counts are also in a safe range today. Continue to monitor and transfuse as needed. Threshold for PRBC transfusion his hemoglobin of 7. Current Visit: No Status: Acute Priority: High Code(s): D61.818 - OTHER PANCYTOPENIA SNOMED Code(s): 740855916 (3) Cough Narrative/Plan: The patient feels that her cough is somewhat worse. Chest x-ray will be ordered to rule out an infiltrate. The patient is already covered with Levaquin. She is also on updrafts. Current Visit: Yes Status: Acute Priority: High Code(s): R05 - COUGH SNOMED Code(s): 06239349
[2018-04-09 11:15] LABS: Glucose,Whole Blood 149 mg/dL (75-99)
[2018-04-09] MEDS: LEVOFLOXACIN 500 MG TAB PO SCH (11:25)
[2018-04-09] MEDS ORDERED: FUROSEMIDE 10 MG/ML 2 ML VIAL IV STA ×2 (12:52→20:15)
[2018-04-09] MEDS: ONDANSETRON 16 MG in SODIUM CHLORIDE 0.9% 50 ML IVPB SCH (13:30)
[2018-04-09] MEDS: DEXAMETHASONE SOD PHOSPHATE 10 MG/ML 1 ML VIAL IV SCH (13:36)
--- NOTE | 2018-04-09 13:41 | XR ---
EXAMINATION TYPE: XR chest 2V DATE OF EXAM: 04/09/2018 COMPARISON: Prior chest x-ray 03/14/2018 HISTORY: Cough with expectoration, abnormal chest x-ray TECHNIQUE: Frontal and lateral views of the chest are obtained. FINDINGS: Left-sided PICC line shows the distal tip in the right atrium. No evident pneumothorax or sizable effusion. Heart remains enlarged. Interstitium and central vascularity are prominent. IMPRESSION: Correlate for congestive heart failure, pneumonia not excluded.
[2018-04-09] MEDS: SODIUM CHLORIDE 0.9% IV SCH (14:31)
[2018-04-09] MEDS: CYTARABINE IV SCH (14:31)
[2018-04-09 17:26] LABS: Glucose,Whole Blood 235 mg/dL (75-99)
[2018-04-09] MEDS ORDERED: FUROSEMIDE 10 MG/ML 4 ML VIAL IV STA (19:35)
[2018-04-09 20:00] LABS: Glucose,Whole Blood 337 mg/dL (75-99)
[2018-04-09] MEDS: MONTELUKAST 10 MG TAB PO SCH (20:14)
[2018-04-09] MEDS: ZOLPIDEM 10 MG TAB PO SCH (22:36)
[2018-04-10] MEDS: ONDANSETRON 4 MG/2 ML VIAL IVP PRN (01:12)
[2018-04-10] MEDS: CYTARABINE IV SCH (01:21)
[2018-04-10] MEDS: SODIUM CHLORIDE 0.9% IV SCH (01:21)
[2018-04-10 02:18] LABS: Glucose,Whole Blood 257 mg/dL (75-99)
[2018-04-10] MEDS: SALT AND SODA MOUTHWASH 1,000 ML PO SCH ×4 (04:51→21:44)
[2018-04-10] MEDS: IPRATROPIUM-ALBUTEROL 3 ML NEB INHALATION PRN (04:54)
[2018-04-10] MEDS ORDERED: FUROSEMIDE 10 MG/ML 2 ML VIAL IV ONE (05:30)
[2018-04-10] MEDS: LEVOTHYROXINE 125 MCG TAB PO SCH (05:44)
[2018-04-10 07:10] LABS: Glucose,Whole Blood 266 mg/dL (75-99)
[2018-04-10] MEDS: INSULIN ASPART 100 UNIT/ML 1 ML 10 ML VIAL SQ SCH ×7 (07:52→21:43)
[2018-04-10] MEDS: prednisoLONE ACETATE 1% OPHTH DROPS 5 ML BTL BOTH EYES SCH ×4 (07:54→21:45)
[2018-04-10] MEDS: ENOXAPARIN 40 MG/0.4 ML SYRINGE SQ SCH (07:55)
[2018-04-10] MEDS: LORATADINE 10 MG TAB PO SCH (07:55)
[2018-04-10] MEDS: FUROSEMIDE 20 MG TAB PO SCH ×2 (07:55→15:35)
[2018-04-10] MEDS: POTASSIUM CHLORIDE ER 20 MEQ TAB.ER PO SCH ×2 (07:55→21:44)
[2018-04-10] MEDS: FLUTICASONE 50MCG/SPRAY NASAL 16GM EA NOSTRIL SCH (07:55)
[2018-04-10] MEDS: CYANOCOBALAMIN 500 MCG TAB PO SCH (07:56)
[2018-04-10] MEDS: ESCITALOPRAM 10 MG TAB PO SCH (07:56)
[2018-04-10] MEDS: FLUCONAZOLE 100 MG TAB PO SCH (07:56)
[2018-04-10] MEDS: ATORVASTATIN 20 MG TAB PO SCH (07:56)
[2018-04-10] MEDS: CALCIUM CARB-VIT D 500MG-200UN 1 EACH TAB PO SCH (07:56)
[2018-04-10] MEDS: PANTOPRAZOLE 40 MG TABLET PO SCH (07:56)
[2018-04-10] MEDS: FERROUS SULFATE 325 MG TAB PO SCH (07:56)
[2018-04-10] MEDS: METOPROLOL TARTRATE 50 MG TAB PO SCH ×2 (07:57→21:44)
[2018-04-10] MEDS: IPRATROPIUM-ALBUTEROL 3 ML NEB INHALATION SCH ×4 (08:30→20:59)
[2018-04-10] MEDS: SYMBICORT 160-4.5 MCG INHALER INHALATION SCH ×2 (08:30→20:59)
[2018-04-10] MEDS: ACYCLOVIR 200 MG CAP PO SCH ×2 (08:55→22:00)
[2018-04-10 09:29] LABS: Anisocytosis Slight; Basophils % (A) 0 %; Eosinophils % (A) 1 %; HCT 21.8 % (34.0-46.0); HGB 7.2 gm/dL (11.4-16.0); Hypochromasia Slight; Lymphocytes # (A) 0.1 k/uL (1.0-4.8); Lymphocytes % (A) 7 %; MCH 31.2 pg (25.0-35.0); MCHC 33.2 g/dL (31.0-37.0); MCV 93.9 fL (80.0-100.0); Macrocytosis Slight; Mean Platelet Volume 8.2; Monocytes # (A) 0.1 k/uL (0-1.0); Monocytes % (A) 3 %; Neutrophils # (A) 1.7 k/uL (1.3-7.7); Neutrophils % (A) 89 %; Platelet Count 116 k/uL (150-450); RBC 2.32 m/uL (3.80-5.40); RDW 18.5 % (11.5-15.5); WBC 1.9 k/uL (3.8-10.6)
[2018-04-10 09:54] LABS: ALT 26 U/L (9-52); AST 36 U/L (14-36); Albumin 3.8 g/dL (3.5-5.0); Alkaline Phosphatase 90 U/L (38-126); Anion Gap 14 mmol/L; Blood Urea Nitrogen 14 mg/dL (7-17); Calcium 8.4 mg/dL (8.4-10.2); Carbon Dioxide 20 mmol/L (22-30); Chloride 104 mmol/L (98-107); Glucose 299 mg/dL (74-99); Potassium 3.9 mmol/L (3.5-5.1); Sodium 138 mmol/L (137-145); Total Bilirubin 1.4 mg/dL (0.2-1.3); Total Protein 6.7 g/dL (6.3-8.2); Uric Acid 5.9 mg/dL (3.7-7.4)
[2018-04-10 11:27] LABS: Glucose,Whole Blood 235 mg/dL (75-99)
[2018-04-10] MEDS: INSULIN DETEMIR 100 UNIT/ML 10 ML VIAL SQ SCH ×2 (12:07→21:43)
[2018-04-10] MEDS: LEVOFLOXACIN 500 MG TAB PO SCH (12:07)
[2018-04-10] MEDS: SODIUM CHLORIDE 0.9% 1,000 ML IV SCH ×2 (12:08→14:50)
[2018-04-10 17:08] LABS: Glucose,Whole Blood 188 mg/dL (75-99)
--- NOTE | 2018-04-10 18:30 | P.PN ---
Subjective Progress Note Date: 04/10/18 Principal diagnosis: AML, admitted for continuous IV infusion chemotherapy with high-dose Rhonda-C Patient seen today in follow-up. She is not sleeping well at night so, she is tired all day, she has wheezing and a congested cough, she has had several doses of lasix and her fluids have been decreased. Denies fevers, oral irritation, no purulent sputum or hemoptysis, palpitations, vomiting, abdominal pain, dysuria, diarrhea, constipation, bleeding or pain. Objective - Vital Signs Vital signs: Vital Signs Temp 97.8 F 04/10/18 16:00 Pulse 82 04/10/18 17:39 Resp 20 04/10/18 16:00 BP 122/77 04/10/18 16:00 Pulse Ox 96 04/10/18 16:00 Intake & Output 04/09/18 04/10/18 04/10/18 18:59 06:59 18:59 Intake Total 360 2573 450 Balance 360 2573 450 Intake: IV 1213 Cytarabine/Pf 6,000 mg 313 Cytarabine/Pf 600 mg In Sodium Chloride 0.9% 250 ml @ 113.333 mls/hr IV Q48H [facility] Rx#:[id number] Sodium Chloride 0.9% 1, 900 000 ml @ 100 mls/hr IV . Q10H [facility] Rx#:[id number] Intake, IV Titration 450 Amount Sodium Chloride 0.9% 1, 200 000 ml @ 100 mls/hr IV . Q10H [facility] Rx#:[id number] Sodium Chloride 0.9% 1, 250 000 ml @ 50 mls/hr IV . Q20H [facility] Rx#:[id number] Oral 360 1360 Other: Voiding Method Toilet Toilet Toilet # Voids 2 - Constitutional General appearance: Present: cooperative, no acute distress, obese - EENT Eyes: Present: anicteric sclerae - Respiratory Details: some audible wheezing but nothing on auscultation Respiratory: bilateral: CTA - Cardiovascular Heart sounds: normal: S1, S2 - Peripheral edema leg Peripheral Edema: bilateral: Trace - Gastrointestinal General gastrointestinal: Present: normal bowel sounds, soft - Integumentary Integumentary: Present: pale - Neurologic Neurologic: Present: CNII-XII intact - Musculoskeletal Musculoskeletal: Present: generalized weakness, strength equal bilaterally - Psychiatric Psychiatric: Present: A&O x's 3, appropriate affect, intact judgment & insight - Labs CBC & Chem 7: 04/10/18 09:09 04/10/18 09:09 Labs: Abnormal Lab Results - Last 24 Hours (Table) 04/09/18 04/10/18 04/10/18 Range/Units 19:58 02:16 07:08 WBC (3.8-10.6) k/uL RBC (3.80-5.40) m/uL Hgb (11.4-16.0) gm/dL Hct (34.0-46.0) % RDW (11.5-15.5) % Plt Count (150-450) k/uL Lymphocytes # (1.0-4.8) k/uL Carbon Dioxide (22-30) mmol/L Glucose (74-99) mg/dL POC Glucose (mg/dL) 337 H 257 H 266 H (75-99) mg/dL Total Bilirubin (0.2-1.3) mg/dL 04/10/18 04/10/18 04/10/18 Range/Units 09:09 09:09 11:25 WBC 1.9 L (3.8-10.6) k/uL RBC 2.32 L (3.80-5.40) m/uL Hgb 7.2 L (11.4-16.0) gm/dL Hct 21.8 L (34.0-46.0) % RDW 18.5 H (11.5-15.5) % Plt Count 116 L (150-450) k/uL Lymphocytes # 0.1 L (1.0-4.8) k/uL Carbon Dioxide 20 L (22-30) mmol/L Glucose 299 H (74-99) mg/dL POC Glucose (mg/dL) 235 H (75-99) mg/dL Total Bilirubin 1.4 H (0.2-1.3) mg/dL 04/10/18 Range/Units 17:06 WBC (3.8-10.6) k/uL RBC (3.80-5.40) m/uL Hgb (11.4-16.0) gm/dL Hct (34.0-46.0) % RDW (11.5-15.5) % Plt Count (150-450) k/uL Lymphocytes # (1.0-4.8) k/uL Carbon Dioxide (22-30) mmol/L Glucose (74-99) mg/dL POC Glucose (mg/dL) 188 H (75-99) mg/dL Total Bilirubin (0.2-1.3) mg/dL - Imaging and Cardiology Chest x-ray: report reviewed Assessment and Plan (1) Acute myeloid leukemia Narrative/Plan: Cont chemo Supportive care medications ordered Labs daily Daily follow up Current Visit: Yes Status: Acute Priority: High Code(s): C92.00 - ACUTE MYELOBLASTIC LEUKEMIA, NOT HAVING ACHIEVED REMISSION SNOMED Code(s): 33622157 (2) Antineoplastic chemotherapy induced anemia Narrative/Plan: Hgb monitoring, very conservative transfusions, none today Current Visit: Yes Status: Chronic Priority: Medium Code(s): D64.81 - ANEMIA DUE TO ANTINEOPLASTIC CHEMOTHERAPY; T45.1X5A - ADVERSE EFFECT OF ANTINEOPLASTIC AND IMMUNOSUP DRUGS, INIT SNOMED Code(s): 937387083 (3) Cough Narrative/Plan: CXR report-CHF vs pneumonia, pt on levaquin, lasix given, fluids decreased, CXR in AM Current Visit: Yes Status: Acute Priority: High Code(s): R05 - COUGH SNOMED Code(s): 09729273 (4) Elevated uric acid in blood Current Visit: Yes Status: Resolved Priority: Medium Code(s): E79.0 - HYPERURICEMIA W/O SIGNS OF INFLAM ARTHRIT AND TOPHACEOUS DIS SNOMED Code(s): 29119873 Plan: GI and DVT prophylaxis ordered
--- NOTE | 2018-04-10 19:53 | XR ---
EXAMINATION TYPE: XR chest 2V DATE OF EXAM: 04/10/2018 COMPARISON: Yesterday HISTORY: Diaphoresis TECHNIQUE: Frontal and lateral views of the chest are obtained. FINDINGS: Heart is enlarged. There is no heart failure. There is no pleural effusion. There is left- sided central venous catheter with the tip over the top of the right atrium. Bony thorax is intact. IMPRESSION: Cardiomegaly. No active cardiopulmonary disease. There is clearing of the pulmonary vasc ular congestion compared to yesterday.
[2018-04-10 20:01] LABS: Glucose,Whole Blood 220 mg/dL (75-99)
[2018-04-10] MEDS: ZOLPIDEM 10 MG TAB PO SCH (21:43)
[2018-04-10] MEDS: MONTELUKAST 10 MG TAB PO SCH (21:44)
[2018-04-11] MEDS: SALT AND SODA MOUTHWASH 1,000 ML PO SCH ×5 (00:33→22:37)
--- NOTE | 2018-04-11 02:42 | P.PN ---
Subjective Progress Note Date: 04/09/18 Principal diagnosis: Ms. Brunner is admitted for her 2nd consolidation treatment with High dose cytarabine. Ms. Brunner is admitted for her 2nd consolidation treatment with High dose cytarabine. Malignancy History: Pt found to be leukopenic on routine blood work 11/14/17, WBC was 2.8, mild neutropenia, MCV 103.2, CBC and CMP otherwise unremarkable, peripheral smear did not reveal any suspicious morphology. CT AP 10/29/17 was done due to abdominal pain revealed fatty liver and diverticulitis. 01/10/18 bone marrow biopsy was done, positive for AML, cytogenetics and FISH were positive for inversion 16. Induction with 7+3 protocol was started on 01/16/18, repeat bone marrow biopsy on 02/13/18 revealed no residual leukemia! 0.6-2% blasts, normal cytogenetics. Induction was complicated by neutropenic sepsis, pneumonia, ventilator dependent respiratory failure. She was evaluated by Dr. Johnston, no need for allogenic transplant due to favorable finding of inversion of 16. She had 1st induction 03/10/18 and did require supportive PRBCs and platelet transfusions. She has been having mild wheezing with cough. Productive sputum that is yellow in color. Patient denies having any fevers chills or rigors. She has been started on Levofloxacin. 04/09/2018 Patient is complaining of shortness of breath this morning. Chest x-ray was ordered. Showed interstitial edema. IV fluids will be reduced to 100 mL per hour or discontinue if the symptoms worsens. Patient was given a dose of IV Lasix. Continue to monitor closely. Patient is otherwise getting chemotherapy. Blood sugar is still elevated with hyperglycemia. Continue with NovoLog 10 units 3 times a day before meals and also added Levemir 15 units daily. Patient is oix-xaxeunt-fwsqdyikc at home. REVIEW OF SYSTEMS: CONSTITUTIONAL: No fever, has fatigue and generalized weakness. CARDIOVASCULAR: No chest pain, orthopnea, PND, no palpitations, no syncope. PULMONARY: mild cough with suputum production, mild SOB GASTROINTESTINAL: No diarrhea, no nausea, no vomiting, no abdominal pain. Normoactive bowel sounds. NEUROLOGICAL: No headaches, no weakness, no numbness. Objective - Vital Signs Vital signs: Vital Signs Temp 98.3 F 04/09/18 15:58 Pulse 86 04/09/18 17:00 Resp 18 04/09/18 17:00 BP 140/84 04/09/18 15:58 Pulse Ox 93 L 04/09/18 15:58 Intake & Output 04/09/18 04/09/18 04/10/18 06:59 18:59 06:59 Intake Total 3830 360 Balance 3830 360 Intake: IV 1500 Sodium Chloride 0.9% 1, 1500 000 ml @ 100 mls/hr IV . Q10H [facility] Rx#:[id number] Oral 2020 360 Blood Product 310 Rc Irr As1 Unit 310 [id number] Other: Voiding Method Toilet Toilet # Voids 3 - Exam GENERAL: The patient is alert and oriented x3, not in any acute distress. Obese HEENT: Pupils are round and equally reacting to light. EOMI. No scleral icterus. No conjunctival pallor. Normocephalic, atraumatic. No pharyngeal erythema. No thyromegaly. CARDIOVASCULAR: S1 and S2 present. No murmurs, rubs, or gallops. PULMONARY: Bilateral basilar crackles and expiratory wheezing. Nonlabored breathing. ABDOMEN: Soft, nontender, nondistended, normoactive bowel sounds. No palpable organomegaly. MUSCULOSKELETAL: No joint swelling or deformity. EXTREMITIES: No cyanosis, clubbing, or pedal edema. NEUROLOGICAL: Gross neurological examination did not reveal any focal deficits. SKIN: No rashes. - Labs CBC & Chem 7: 04/10/18 09:09 04/10/18 09:09 Labs: Abnormal Lab Results - Last 24 Hours (Table) 04/08/18 04/08/18 04/09/18 Range/Units 12:40 22:39 06:58 WBC (3.8-10.6) k/uL RBC (3.80-5.40) m/uL Hgb (11.4-16.0) gm/dL Hct (34.0-46.0) % RDW (11.5-15.5) % Plt Count (150-450) k/uL Lymphocytes # (1.0-4.8) k/uL Chloride (98-107) mmol/L Glucose (74-99) mg/dL POC Glucose (mg/dL) 295 H 183 H (75-99) mg/dL Calcium (8.4-10.2) mg/dL Total Bilirubin (0.2-1.3) mg/dL Albumin (3.5-5.0) g/dL Crossmatch See Detail 04/09/18 04/09/18 04/09/18 Range/Units 07:30 07:30 11:14 WBC 3.3 L (3.8-10.6) k/uL RBC 2.28 L (3.80-5.40) m/uL Hgb 7.1 L (11.4-16.0) gm/dL Hct 21.5 L (34.0-46.0) % RDW 19.3 H (11.5-15.5) % Plt Count 124 L (150-450) k/uL Lymphocytes # 0.3 L (1.0-4.8) k/uL Chloride 110 H (98-107) mmol/L Glucose 159 H (74-99) mg/dL POC Glucose (mg/dL) 149 H (75-99) mg/dL Calcium 8.2 L (8.4-10.2) mg/dL Total Bilirubin 1.4 H (0.2-1.3) mg/dL Albumin 3.4 L (3.5-5.0) g/dL Crossmatch 04/09/18 04/09/18 Range/Units 17:25 19:58 WBC (3.8-10.6) k/uL RBC (3.80-5.40) m/uL Hgb (11.4-16.0) gm/dL Hct (34.0-46.0) % RDW (11.5-15.5) % Plt Count (150-450) k/uL Lymphocytes # (1.0-4.8) k/uL Chloride (98-107) mmol/L Glucose (74-99) mg/dL POC Glucose (mg/dL) 235 H 337 H (75-99) mg/dL Calcium (8.4-10.2) mg/dL Total Bilirubin (0.2-1.3) mg/dL Albumin (3.5-5.0) g/dL Crossmatch Assessment and Plan Assessment: ASSESMENT -Acute myeloid leukemia: Admitted for chemotherapy -History of asthma in mild exacerbation - Hyperglycemia due to steroids. Patient is fsw-vasqaee-ktwacaout at home. - Shortness of breath due to pulmonary vascular congestion/edema. Improving - Pancytopenia due to chemotherapy -Obesity -Hypertension -Hyperlipidemia -Hypothyroidism -Anxiety depression -Type 2 diabetes mellitus Plan: Continue with Levofloxacin and DuoNeb breathing treatments. Pt's BP has been WNL and blood sugars are high as she is on IV steroids, so she has been started on SSI.. For her chronic medical problems appropriate medications have been resumed and will closely monitor her blood pressure and blood glucose levels. Time with Patient: Greater than 30
--- NOTE | 2018-04-11 02:43 | P.PN ---
Subjective Progress Note Date: 04/10/18 Principal diagnosis: Ms. Brunner is admitted for her 2nd consolidation treatment with High dose cytarabine. Ms. Brunner is admitted for her 2nd consolidation treatment with High dose cytarabine. Malignancy History: Pt found to be leukopenic on routine blood work 11/14/17, WBC was 2.8, mild neutropenia, MCV 103.2, CBC and CMP otherwise unremarkable, peripheral smear did not reveal any suspicious morphology. CT AP 10/29/17 was done due to abdominal pain revealed fatty liver and diverticulitis. 01/10/18 bone marrow biopsy was done, positive for AML, cytogenetics and FISH were positive for inversion 16. Induction with 7+3 protocol was started on 01/16/18, repeat bone marrow biopsy on 02/13/18 revealed no residual leukemia! 0.6-2% blasts, normal cytogenetics. Induction was complicated by neutropenic sepsis, pneumonia, ventilator dependent respiratory failure. She was evaluated by Dr. Johnston, no need for allogenic transplant due to favorable finding of inversion of 16. She had 1st induction 03/10/18 and did require supportive PRBCs and platelet transfusions. She has been having mild wheezing with cough. Productive sputum that is yellow in color. Patient denies having any fevers chills or rigors. She has been started on Levofloxacin. 04/09/2018 Patient is complaining of shortness of breath this morning. Chest x-ray was ordered. Showed interstitial edema. IV fluids will be reduced to 100 mL per hour or discontinue if the symptoms worsens. Patient was given a dose of IV Lasix. Continue to monitor closely. Patient is otherwise getting chemotherapy. Blood sugar is still elevated with hyperglycemia. Continue with NovoLog 10 units 3 times a day before meals and also added Levemir 15 units daily. Patient is dlj-qvqcmcr-qhdgbuzhg at home. 04/10/2018 Patient's breathing status is better today. Blood sugar is also fairly controlled otherwise still hyperglycemic. Continue with insulin dosing and IV fluids as tolerated. Patient undergoing chemotherapy. We will continue the current management and follow closely. REVIEW OF SYSTEMS: CONSTITUTIONAL: No fever, has fatigue and generalized weakness. CARDIOVASCULAR: No chest pain, orthopnea, PND, no palpitations, no syncope. PULMONARY: mild cough with suputum production, mild SOB GASTROINTESTINAL: No diarrhea, no nausea, no vomiting, no abdominal pain. Normoactive bowel sounds. NEUROLOGICAL: No headaches, no weakness, no numbness. Objective - Vital Signs Vital signs: Vital Signs Temp 97.6 F 04/10/18 20:00 Pulse 84 04/10/18 21:13 Resp 16 04/10/18 20:00 BP 142/87 04/10/18 20:00 Pulse Ox 97 04/10/18 20:00 Intake & Output 04/10/18 04/10/18 04/11/18 06:59 18:59 06:59 Intake Total 2573 450 Balance 2573 450 Intake: IV 1213 Cytarabine/Pf 6,000 mg 313 Cytarabine/Pf 600 mg In Sodium Chloride 0.9% 250 ml @ 113.333 mls/hr IV Q48H [facility] Rx#:[id number] Sodium Chloride 0.9% 1, 900 000 ml @ 100 mls/hr IV . Q10H [facility] Rx#:[id number] Intake, IV Titration 450 Amount Sodium Chloride 0.9% 1, 200 000 ml @ 100 mls/hr IV . Q10H [facility] Rx#:[id number] Sodium Chloride 0.9% 1, 250 000 ml @ 50 mls/hr IV . Q20H [facility] Rx#:[id number] Oral 1360 Other: Voiding Method Toilet Toilet # Voids 2 - Exam GENERAL: The patient is alert and oriented x3, not in any acute distress. Obese HEENT: Pupils are round and equally reacting to light. EOMI. No scleral icterus. No conjunctival pallor. Normocephalic, atraumatic. No pharyngeal erythema. No thyromegaly. CARDIOVASCULAR: S1 and S2 present. No murmurs, rubs, or gallops. PULMONARY: Bilateral basilar crackles and expiratory wheezing. Nonlabored breathing. ABDOMEN: Soft, nontender, nondistended, normoactive bowel sounds. No palpable organomegaly. MUSCULOSKELETAL: No joint swelling or deformity. EXTREMITIES: No cyanosis, clubbing, or pedal edema. NEUROLOGICAL: Gross neurological examination did not reveal any focal deficits. SKIN: No rashes. - Labs CBC & Chem 7: 04/10/18 09:09 04/10/18 09:09 Labs: Abnormal Lab Results - Last 24 Hours (Table) 04/10/18 04/10/18 04/10/18 Range/Units 02:16 07:08 09:09 WBC 1.9 L (3.8-10.6) k/uL RBC 2.32 L (3.80-5.40) m/uL Hgb 7.2 L (11.4-16.0) gm/dL Hct 21.8 L (34.0-46.0) % RDW 18.5 H (11.5-15.5) % Plt Count 116 L (150-450) k/uL Lymphocytes # 0.1 L (1.0-4.8) k/uL Carbon Dioxide (22-30) mmol/L Glucose (74-99) mg/dL POC Glucose (mg/dL) 257 H 266 H (75-99) mg/dL Total Bilirubin (0.2-1.3) mg/dL 04/10/18 04/10/18 04/10/18 Range/Units 09:09 11:25 17:06 WBC (3.8-10.6) k/uL RBC (3.80-5.40) m/uL Hgb (11.4-16.0) gm/dL Hct (34.0-46.0) % RDW (11.5-15.5) % Plt Count (150-450) k/uL Lymphocytes # (1.0-4.8) k/uL Carbon Dioxide 20 L (22-30) mmol/L Glucose 299 H (74-99) mg/dL POC Glucose (mg/dL) 235 H 188 H (75-99) mg/dL Total Bilirubin 1.4 H (0.2-1.3) mg/dL 04/10/18 Range/Units 19:59 WBC (3.8-10.6) k/uL RBC (3.80-5.40) m/uL Hgb (11.4-16.0) gm/dL Hct (34.0-46.0) % RDW (11.5-15.5) % Plt Count (150-450) k/uL Lymphocytes # (1.0-4.8) k/uL Carbon Dioxide (22-30) mmol/L Glucose (74-99) mg/dL POC Glucose (mg/dL) 220 H (75-99) mg/dL Total Bilirubin (0.2-1.3) mg/dL Assessment and Plan Assessment: ASSESMENT -Acute myeloid leukemia: Admitted for chemotherapy -History of asthma in mild exacerbation - Hyperglycemia due to steroids. Patient is jcu-qqtgeyu-votnwzuvo at home. - Shortness of breath due to pulmonary vascular congestion/edema. Improving - Pancytopenia due to chemotherapy -Obesity -Hypertension -Hyperlipidemia -Hypothyroidism -Anxiety depression -Type 2 diabetes mellitus Plan: Continue with Levofloxacin and DuoNeb breathing treatments. Pt's BP has been WNL and blood sugars are high as she is on IV steroids, so she has been started on SSI.. For her chronic medical problems appropriate medications have been resumed and will closely monitor her blood pressure and blood glucose levels.
[2018-04-11] MEDS: IPRATROPIUM-ALBUTEROL 3 ML NEB INHALATION PRN (03:56)
[2018-04-11] MEDS: LEVOTHYROXINE 125 MCG TAB PO SCH (05:29)
[2018-04-11 06:58] LABS: Glucose,Whole Blood 185 mg/dL (75-99)
[2018-04-11] MEDS: INSULIN ASPART 100 UNIT/ML 1 ML 10 ML VIAL SQ SCH ×7 (07:46→22:38)
[2018-04-11] MEDS: SODIUM CHLORIDE 0.9% 1,000 ML IV SCH (07:47)
[2018-04-11] MEDS: ACYCLOVIR 200 MG CAP PO SCH ×2 (07:52→22:37)
[2018-04-11] MEDS: ESCITALOPRAM 10 MG TAB PO SCH (07:53)
[2018-04-11] MEDS: PANTOPRAZOLE 40 MG TABLET PO SCH (07:53)
[2018-04-11] MEDS: ENOXAPARIN 40 MG/0.4 ML SYRINGE SQ SCH (07:53)
[2018-04-11] MEDS: FUROSEMIDE 20 MG TAB PO SCH ×2 (07:53→17:12)
[2018-04-11] MEDS: FERROUS SULFATE 325 MG TAB PO SCH (07:54)
[2018-04-11] MEDS: METOPROLOL TARTRATE 50 MG TAB PO SCH ×2 (07:54→22:38)
[2018-04-11] MEDS: LORATADINE 10 MG TAB PO SCH (07:54)
[2018-04-11] MEDS: POTASSIUM CHLORIDE ER 20 MEQ TAB.ER PO SCH ×2 (07:54→22:39)
[2018-04-11] MEDS: FLUTICASONE 50MCG/SPRAY NASAL 16GM EA NOSTRIL SCH (07:55)
[2018-04-11] MEDS: prednisoLONE ACETATE 1% OPHTH DROPS 5 ML BTL BOTH EYES SCH ×4 (07:55→22:39)
[2018-04-11] MEDS: ATORVASTATIN 20 MG TAB PO SCH (07:56)
[2018-04-11] MEDS: CYANOCOBALAMIN 500 MCG TAB PO SCH (07:56)
[2018-04-11] MEDS: CALCIUM CARB-VIT D 500MG-200UN 1 EACH TAB PO SCH (07:56)
[2018-04-11] MEDS: IPRATROPIUM-ALBUTEROL 3 ML NEB INHALATION SCH ×3 (08:30→15:57)
[2018-04-11] MEDS: SYMBICORT 160-4.5 MCG INHALER INHALATION SCH (08:30)
[2018-04-11 08:56] LABS: Anisocytosis Slight; Basophils % (A) 0 %; Eosinophils % (A) 1 %; HCT 22.3 % (34.0-46.0); HGB 7.3 gm/dL (11.4-16.0); Lymphocytes # (A) 0.2 k/uL (1.0-4.8); Lymphocytes % (A) 14 %; MCH 30.3 pg (25.0-35.0); MCHC 32.7 g/dL (31.0-37.0); MCV 92.5 fL (80.0-100.0); Mean Platelet Volume 8.4; Monocytes # (A) 0.1 k/uL (0-1.0); Monocytes % (A) 4 %; Neutrophils # (A) 1.4 k/uL (1.3-7.7); Neutrophils % (A) 81 %; Platelet Count 115 k/uL (150-450); RBC 2.41 m/uL (3.80-5.40); RDW 17.7 % (11.5-15.5); WBC 1.7 k/uL (3.8-10.6)
[2018-04-11 09:16] LABS: ALT 29 U/L (9-52); AST 30 U/L (14-36); Albumin 3.9 g/dL (3.5-5.0); Alkaline Phosphatase 88 U/L (38-126); Anion Gap 9 mmol/L; Blood Urea Nitrogen 14 mg/dL (7-17); Calcium 8.8 mg/dL (8.4-10.2); Carbon Dioxide 26 mmol/L (22-30); Chloride 107 mmol/L (98-107); Glucose 148 mg/dL (74-99); Potassium 3.9 mmol/L (3.5-5.1); Sodium 142 mmol/L (137-145); Total Bilirubin 1.2 mg/dL (0.2-1.3); Total Protein 6.8 g/dL (6.3-8.2); Uric Acid 5.7 mg/dL (3.7-7.4)
[2018-04-11 11:18] LABS: Glucose,Whole Blood 132 mg/dL (75-99)
[2018-04-11] MEDS: LEVOFLOXACIN 500 MG TAB PO SCH (12:24)
[2018-04-11] MEDS: FLUCONAZOLE 100 MG TAB PO SCH (12:25)
--- NOTE | 2018-04-11 13:16 | P.PN ---
Subjective Progress Note Date: 04/11/18 Principal diagnosis: Second consolidation treatment with high-dose cytarabine Objective - Vital Signs Vital signs: Vital Signs Temp 97.4 F L 04/11/18 07:34 Pulse 76 04/11/18 08:41 Resp 17 04/11/18 07:34 BP 131/83 04/11/18 07:34 Pulse Ox 94 L 04/11/18 07:34 Intake & Output 04/10/18 04/11/18 04/11/18 18:59 06:59 18:59 Intake Total 450 700 Balance 450 700 Intake: Intake, IV Titration 450 450 Amount Sodium Chloride 0.9% 1, 200 000 ml @ 100 mls/hr IV . Q10H [facility] Rx#:[id number] Sodium Chloride 0.9% 1, 250 450 000 ml @ 50 mls/hr IV . Q20H [facility] Rx#:[id number] Oral 250 Other: Voiding Method Toilet Toilet Toilet # Voids 1 - Exam GENERAL: The patient is alert and oriented x3, not in any acute distress. Obese HEENT: Pupils are round and equally reacting to light. EOMI. No scleral icterus. No conjunctival pallor. Normocephalic, atraumatic. No pharyngeal erythema. No thyromegaly. CARDIOVASCULAR: S1 and S2 present. No murmurs, rubs, or gallops. PULMONARY: Bilateral basilar crackles and expiratory wheezing. Nonlabored breathing. ABDOMEN: Soft, nontender, nondistended, normoactive bowel sounds. No palpable organomegaly. MUSCULOSKELETAL: No joint swelling or deformity. EXTREMITIES: No cyanosis, clubbing, or pedal edema. NEUROLOGICAL: Gross neurological examination did not reveal any focal deficits. SKIN: No rashes. - Labs CBC & Chem 7: 04/11/18 08:32 04/11/18 08:32 Labs: Abnormal Lab Results - Last 24 Hours (Table) 04/10/18 04/10/18 04/10/18 Range/Units 09:09 09:09 11:25 WBC 1.9 L (3.8-10.6) k/uL RBC 2.32 L (3.80-5.40) m/uL Hgb 7.2 L (11.4-16.0) gm/dL Hct 21.8 L (34.0-46.0) % RDW 18.5 H (11.5-15.5) % Plt Count 116 L (150-450) k/uL Lymphocytes # 0.1 L (1.0-4.8) k/uL Carbon Dioxide 20 L (22-30) mmol/L Glucose 299 H (74-99) mg/dL POC Glucose (mg/dL) 235 H (75-99) mg/dL Total Bilirubin 1.4 H (0.2-1.3) mg/dL 04/10/18 04/10/18 04/11/18 Range/Units 17:06 19:59 06:57 WBC (3.8-10.6) k/uL RBC (3.80-5.40) m/uL Hgb (11.4-16.0) gm/dL Hct (34.0-46.0) % RDW (11.5-15.5) % Plt Count (150-450) k/uL Lymphocytes # (1.0-4.8) k/uL Carbon Dioxide (22-30) mmol/L Glucose (74-99) mg/dL POC Glucose (mg/dL) 188 H 220 H 185 H (75-99) mg/dL Total Bilirubin (0.2-1.3) mg/dL 04/11/18 04/11/18 Range/Units 08:32 08:32 WBC 1.7 L (3.8-10.6) k/uL RBC 2.41 L (3.80-5.40) m/uL Hgb 7.3 L (11.4-16.0) gm/dL Hct 22.3 L (34.0-46.0) % RDW 17.7 H (11.5-15.5) % Plt Count 115 L (150-450) k/uL Lymphocytes # 0.2 L (1.0-4.8) k/uL Carbon Dioxide (22-30) mmol/L Glucose 148 H (74-99) mg/dL POC Glucose (mg/dL) (75-99) mg/dL Total Bilirubin (0.2-1.3) mg/dL Assessment and Plan Assessment: -Acute myeloid leukemia: Admitted for chemotherapy -History of asthma in mild exacerbation - Hyperglycemia due to steroids. Patient is yea-inepruq-pxaphlbwk at home. - Shortness of breath due to pulmonary vascular congestion/edema. Improving - Pancytopenia due to chemotherapy -Obesity -Hypertension -Hyperlipidemia -Hypothyroidism -Anxiety depression -Type 2 diabetes mellitus Plan: Continue with Levofloxacin and DuoNeb breathing treatments. Pt's BP has been WNL and blood sugars are high as she is on IV steroids, so she has been started on SSI.. For her chronic medical problems appropriate medications have been resumed and will closely monitor her blood pressure and blood glucose levels. Time with Patient: Greater than 30
[2018-04-11] MEDS: ONDANSETRON 16 MG in SODIUM CHLORIDE 0.9% 50 ML IVPB SCH (13:56)
[2018-04-11] MEDS: DEXAMETHASONE SOD PHOSPHATE 10 MG/ML 1 ML VIAL IV SCH (13:56)
[2018-04-11] MEDS: CYTARABINE IV SCH (14:35)
[2018-04-11] MEDS: SODIUM CHLORIDE 0.9% IV SCH (14:35)
[2018-04-11 17:08] LABS: Glucose,Whole Blood 201 mg/dL (75-99)
--- NOTE | 2018-04-11 18:15 | P.DS ---
Providers Date of admission: 04/07/18 08:27 Expected date of discharge: 04/12/18 Attending physician: Tung Atkinson Consults: 04/07/18 10:54 Consult Physician Routine Consulting Provider: David Amos Consult Reason/Comments: medical management Do you want consulting provider notified?: Yes Primary care physician: Tung Atkinson - Discharge Diagnosis(es) (1) Acute myeloid leukemia Current Visit: Yes Status: Acute Priority: High (2) Pancytopenia Current Visit: No Status: Acute Priority: High (3) Cough Current Visit: Yes Status: Acute Priority: High Hospital Course: The patient is 53-year-old female, with a diagnosis of acute myeloid leukemia in 11/08. She achieved complete remission with the 7+3 regimen. She was then placed on consolidation chemotherapy with high-dose cytarabine. She was admitted for cycle #2 of consolidation. The patient was given treatment per protocol, and was monitored with clinical exams and labs. She tolerated treatment well without any untoward side effects. She did not require any transfusion support. She did have evidence of URTI with cough which was treated with a short course of antibiotics, and updrafts. As the patient was stable, it was decided to discharge her in the a.m. of after completion of chemotherapy assuming that there are no new issues. CBC was to be checked prior to discharge. Pertinent Studies: Chest x-ray Procedures: High dose infusional chemotherapy Patient Condition at Discharge: Fair Plan - Discharge Summary Discharge Rx Participant: No New Discharge Prescriptions: No Action Omeprazole [PriLOSEC] 20 mg PO AC-BID Ferrous Sulfate [Iron (65 MG Elemental)] 325 mg PO DAILY Escitalopram Oxalate [Lexapro] 30 mg PO QAM Zolpidem [Ambien] 10 mg PO HS Loratadine [Claritin] 10 mg PO DAILY Fluticasone Nasal [place] [Flonase Nasal [place]] 1 spray EA NOSTRIL DAILY Atorvastatin [Lipitor] 20 mg PO DAILY Furosemide [Lasix] 20 mg PO BID Levothyroxine Sodium [Synthroid] 125 mcg PO DAILY Potassium Chloride [Klor-Con 20] 20 meq PO BID Montelukast [Singulair] 10 mg PO HS Metoprolol Tartrate [Lopressor] 50 mg PO BID Calcium Carbonate/Vitamin D3 [Calcium 600-Vit D3 400 Caplet] 1 tab PO DAILY Ipratropium-Albuterol Nebulize [Duoneb 0.5 mg-3 mg/3 ml Soln] 3 ml INHALATION RT-QID PRN PRN Reason: Shortness Of Breath Budesonide/Formoterol Fumarate [Symbicort 160-4.5 Mcg Inhaler] 2 puff INHALATION RT-BID Albuterol Inhaler [Ventolin Hfa Inhaler] 2 puff INHALATION RT-QID PRN PRN Reason: Shortness Of Breath Cyanocobalamin (Vitamin B-12) [Vitamin B-12] 1,000 mcg PO DAILY 90 Days #90 tablet Ondansetron [Zofran] 4 mg PO Q6HR PRN #45 tab PRN Reason: Nausea Acyclovir 400 mg PO BID #40 tablet Fluconazole [Diflucan] 100 mg PO DAILY #10 tab Ondansetron Odt [Zofran Odt] 4 mg PO Q8HR PRN #30 tab PRN Reason: Nausea And Vomiting Discharge Medication List Escitalopram Oxalate [Lexapro] 30 mg PO QAM 05/04/16 [History] Ferrous Sulfate [Iron (65 MG Elemental)] 325 mg PO DAILY 05/04/16 [History] Omeprazole [PriLOSEC] 20 mg PO AC-BID 05/04/16 [History] Atorvastatin [Lipitor] 20 mg PO DAILY 10/26/16 [History] Fluticasone Nasal [place] [Flonase Nasal [place]] 1 spray EA NOSTRIL DAILY 10/26/16 [History] Loratadine [Claritin] 10 mg PO DAILY 10/26/16 [History] Zolpidem [Ambien] 10 mg PO HS 10/26/16 [History] Furosemide [Lasix] 20 mg PO BID 08/19/17 [History] Levothyroxine Sodium [Synthroid] 125 mcg PO DAILY 08/19/17 [History] Potassium Chloride [Klor-Con 20] 20 meq PO BID 08/19/17 [History] Calcium Carbonate/Vitamin D3 [Calcium 600-Vit D3 400 Caplet] 1 tab PO DAILY [History] Metoprolol Tartrate [Lopressor] 50 mg PO BID 10/08/17 [History] Montelukast [Singulair] 10 mg PO HS 10/08/17 [History] Albuterol Inhaler [Ventolin Hfa Inhaler] 2 puff INHALATION RT-QID PRN 10/29/17 [ History] Budesonide/Formoterol Fumarate [Symbicort 160-4.5 Mcg Inhaler] 2 puff INHALATION RT-BID 10/29/17 [History] Ipratropium-Albuterol Nebulize [Duoneb 0.5 mg-3 mg/3 ml Soln] 3 ml INHALATION RT -QID PRN 10/29/17 [History] Cyanocobalamin (Vitamin B-12) [Vitamin B-12] 1,000 mcg PO DAILY 90 Days #90 tablet 01/08/18 [Rx] Ondansetron [Zofran] 4 mg PO Q6HR PRN #45 tab 01/24/18 [Rx] Acyclovir 400 mg PO BID #40 tablet 03/14/18 [Rx] Fluconazole [Diflucan] 100 mg PO DAILY #10 tab 03/14/18 [Rx] Ondansetron Odt [Zofran Odt] 4 mg PO Q8HR PRN #30 tab 03/15/18 [Rx] Follow up Appointment(s)/Referral(s): Tung Atkinson MD [Primary Care Provider] - 04/14/18 11:00 am (for CBC, please make more appts) Activity/Diet/Wound Care/Special Instructions: Activity as tolerated Diet as tolerated zofran, prophylactic antiviral, antifungal and antibiotic Erx-done Discharge Disposition: HOME SELF-CARE
[2018-04-11 20:02] LABS: Glucose,Whole Blood 298 mg/dL (75-99)
[2018-04-11] MEDS: ZOLPIDEM 10 MG TAB PO SCH (22:37)
[2018-04-11] MEDS: INSULIN DETEMIR 100 UNIT/ML 10 ML VIAL SQ SCH (22:38)
[2018-04-11] MEDS: MONTELUKAST 10 MG TAB PO SCH (22:39)
[2018-04-12] MEDS: SYMBICORT 160-4.5 MCG INHALER INHALATION SCH ×3 (00:13→20:19)
[2018-04-12] MEDS: IPRATROPIUM-ALBUTEROL 3 ML NEB INHALATION SCH ×5 (00:13→20:19)
[2018-04-12] MEDS: ONDANSETRON 4 MG/2 ML VIAL IVP PRN (01:02)
[2018-04-12] MEDS: CYTARABINE IV SCH (01:12)
[2018-04-12] MEDS: SALT AND SODA MOUTHWASH 1,000 ML PO SCH ×5 (01:12→20:29)
[2018-04-12] MEDS: SODIUM CHLORIDE 0.9% IV SCH (01:12)
[2018-04-12] MEDS: SODIUM CHLORIDE 0.9% 1,000 ML IV SCH ×2 (04:34→12:30)
[2018-04-12] MEDS: LEVOTHYROXINE 125 MCG TAB PO SCH (05:45)
[2018-04-12 06:52] LABS: Glucose,Whole Blood 186 mg/dL (75-99)
[2018-04-12 06:59] LABS: Anisocytosis Slight; Basophils % (A) 0 %; Eosinophils % (A) 2 %; HCT 20.1 % (34.0-46.0); Lymphocytes # (A) 0.1 k/uL (1.0-4.8); Lymphocytes % (A) 5 %; MCH 32.2 pg (25.0-35.0); MCHC 34.9 g/dL (31.0-37.0); MCV 92.4 fL (80.0-100.0); Mean Platelet Volume 7.6; Monocytes # (A) 0.1 k/uL (0-1.0); Monocytes % (A) 4 %; Neutrophils # (A) 1.5 k/uL (1.3-7.7); Neutrophils % (A) 89 %; Platelet Count 101 k/uL (150-450); RBC 2.18 m/uL (3.80-5.40); RDW 17.6 % (11.5-15.5); WBC 1.7 k/uL (3.8-10.6)
[2018-04-12 07:26] LABS: ALT 33 U/L (9-52); AST 28 U/L (14-36); Albumin 3.6 g/dL (3.5-5.0); Alkaline Phosphatase 75 U/L (38-126); Anion Gap 8 mmol/L; Blood Urea Nitrogen 14 mg/dL (7-17); Calcium 8.6 mg/dL (8.4-10.2); Carbon Dioxide 27 mmol/L (22-30); Chloride 105 mmol/L (98-107); Glucose 180 mg/dL (74-99); Potassium 4.3 mmol/L (3.5-5.1); Sodium 140 mmol/L (137-145); Total Bilirubin 0.9 mg/dL (0.2-1.3); Total Protein 6.5 g/dL (6.3-8.2); Uric Acid 5.2 mg/dL (3.7-7.4)
[2018-04-12] MEDS: INSULIN ASPART 100 UNIT/ML 1 ML 10 ML VIAL SQ SCH ×7 (08:10→20:31)
[2018-04-12] MEDS: PANTOPRAZOLE 40 MG TABLET PO SCH (08:12)
[2018-04-12] MEDS: LORATADINE 10 MG TAB PO SCH (08:13)
[2018-04-12] MEDS: ESCITALOPRAM 10 MG TAB PO SCH (08:13)
[2018-04-12] MEDS: CALCIUM CARB-VIT D 500MG-200UN 1 EACH TAB PO SCH (08:13)
[2018-04-12] MEDS: CYANOCOBALAMIN 500 MCG TAB PO SCH (08:13)
[2018-04-12] MEDS: ATORVASTATIN 20 MG TAB PO SCH (08:13)
[2018-04-12] MEDS: ACYCLOVIR 200 MG CAP PO SCH ×2 (08:13→20:27)
[2018-04-12] MEDS: FLUCONAZOLE 100 MG TAB PO SCH (08:13)
[2018-04-12] MEDS: ENOXAPARIN 40 MG/0.4 ML SYRINGE SQ SCH (08:13)
[2018-04-12] MEDS: FUROSEMIDE 20 MG TAB PO SCH ×2 (08:13→17:11)
[2018-04-12] MEDS: METOPROLOL TARTRATE 50 MG TAB PO SCH ×2 (08:13→20:27)
[2018-04-12] MEDS: POTASSIUM CHLORIDE ER 20 MEQ TAB.ER PO SCH ×2 (09:25→20:27)
[2018-04-12] MEDS: FLUTICASONE 50MCG/SPRAY NASAL 16GM EA NOSTRIL SCH (09:25)
[2018-04-12] MEDS: prednisoLONE ACETATE 1% OPHTH DROPS 5 ML BTL BOTH EYES SCH ×3 (09:25→17:11)
[2018-04-12 11:09] LABS: Glucose,Whole Blood 246 mg/dL (75-99)
[2018-04-12 17:06] LABS: Glucose,Whole Blood 209 mg/dL (75-99)
--- NOTE | 2018-04-12 19:02 | P.PN ---
Subjective Progress Note Date: 04/12/18 Principal diagnosis: AML Pt here for HiDAC, completed and eager to go home. Objective - Vital Signs Vital signs: Vital Signs Temp 97.6 F 04/12/18 18:24 Pulse 77 04/12/18 18:24 Resp 14 04/12/18 18:24 BP 134/82 04/12/18 18:24 Pulse Ox 99 04/12/18 18:24 Intake & Output 04/11/18 04/12/18 04/12/18 18:59 06:59 18:59 Intake Total 400 1290 0 Balance 400 1290 0 Weight 121.5 kg Intake: Intake, IV Titration 400 400 Amount Sodium Chloride 0.9% 1, 400 400 000 ml @ 50 mls/hr IV . Q20H [facility] Rx#:[id number] Oral 890 Blood Product 0 Rc Irr As1 Unit 0 [id number] Other: Voiding Method Toilet Toilet Toilet # Voids 2 - Exam General: In no acute distress. HEENT: EOMI. Mucosa moist. Neck: Neck supple. Lungs: CTA-B. Heart: RRR. Abdomen: Soft, nontender. MSK: 4/4 strength in all 4 extremities. Neuro: Alert and oriented 3. Skin: No jaundice or rash. Psych: Appropriate affect. - Labs CBC & Chem 7: 04/12/18 06:23 04/12/18 06:23 Labs: Abnormal Lab Results - Last 24 Hours (Table) 04/11/18 04/12/18 04/12/18 Range/Units 20:01 06:23 06:23 WBC 1.7 L (3.8-10.6) k/uL RBC 2.18 L (3.80-5.40) m/uL Hgb 7.0 L (11.4-16.0) gm/dL Hct 20.1 L (34.0-46.0) % RDW 17.6 H (11.5-15.5) % Plt Count 101 L (150-450) k/uL Lymphocytes # 0.1 L (1.0-4.8) k/uL Glucose 180 H (74-99) mg/dL POC Glucose (mg/dL) 298 H (75-99) mg/dL Crossmatch 04/12/18 04/12/18 04/12/18 Range/Units 06:50 08:50 11:07 WBC (3.8-10.6) k/uL RBC (3.80-5.40) m/uL Hgb (11.4-16.0) gm/dL Hct (34.0-46.0) % RDW (11.5-15.5) % Plt Count (150-450) k/uL Lymphocytes # (1.0-4.8) k/uL Glucose (74-99) mg/dL POC Glucose (mg/dL) 186 H 246 H (75-99) mg/dL Crossmatch See Detail 04/12/18 Range/Units 17:04 WBC (3.8-10.6) k/uL RBC (3.80-5.40) m/uL Hgb (11.4-16.0) gm/dL Hct (34.0-46.0) % RDW (11.5-15.5) % Plt Count (150-450) k/uL Lymphocytes # (1.0-4.8) k/uL Glucose (74-99) mg/dL POC Glucose (mg/dL) 209 H (75-99) mg/dL Crossmatch Assessment and Plan Assessment: 1. AML 2. Pancytopenia from chemotherapy Plan: Ms. Brunner is a very pleasant 53 yo female with history of AML, s/p induction chemotherapy with remission, here for consolidation with HiDAC. Tolerated chemotherapy well. Chemotherapy completed this morning. Ready for discharge. CBC did show Hgb 7 from 7.3 this morning. Plan on pRBC transfusion prior to discharge, leukoreduced/irradiated. Discharge in and pt otherwise has medications and ready for discharge.
[2018-04-12 20:22] LABS: Glucose,Whole Blood 274 mg/dL (75-99)
[2018-04-12] MEDS: MONTELUKAST 10 MG TAB PO SCH (20:28)
[2018-04-12] MEDS: ZOLPIDEM 10 MG TAB PO SCH (20:34)
[2018-04-12] MEDS: INSULIN DETEMIR 100 UNIT/ML 10 ML VIAL SQ SCH (20:34)
[2018-04-12 21:15] VITALS: BP 137/72; PULSE 69; RESP 18; TEMP 98.2
== END 2018-04-12 21:15 | disposition home or self-care (01) | DRG 837 ==
LOC: 3NMEDONC 08:27 → UNDOADMIN 08:27 → 3NMEDONC 04-09 11:10
PROVIDERS: ADMIT Internal Medicine Hematology & Oncology; ATTEND Internal Medicine Hematology & Oncology
DX: Z51.11 Encounter for antineoplastic chemotherapy (principal); D61.810 Antineoplastic chemotherapy induced pancytopenia; C92.00 Acute myeloblastic leukemia, not having achieved remission; Z68.42 Body mass index [BMI] 45.0-49.9, adult; J45.909 Unspecified asthma, uncomplicated; K21.9 Gastro-esophageal reflux disease without esophagitis; E78.5 Hyperlipidemia, unspecified; M54.9 Dorsalgia, unspecified; G89.29 Other chronic pain; E79.0 Hyperuricemia without signs of inflammatory arthritis and tophaceous disease; E11.40 Type 2 diabetes mellitus with diabetic neuropathy, unspecified; E03.9 Hypothyroidism, unspecified; E66.9 Obesity, unspecified; I10 Essential (primary) hypertension; E11.65 Type 2 diabetes mellitus with hyperglycemia; J06.9 Acute upper respiratory infection, unspecified; K76.0 Fatty (change of) liver, not elsewhere classified; F41.9 Anxiety disorder, unspecified; Z96.1 Presence of intraocular lens; T45.1X5A Adverse effect of antineoplastic and immunosuppressive drugs, initial encounter; Z98.51 Tubal ligation status; Z79.899 Other long term (current) drug therapy; Z79.51 Long term (current) use of inhaled steroids; Z88.0 Allergy status to penicillin; Z98.42 Cataract extraction status, left eye; Z98.41 Cataract extraction status, right eye
CPT/HCPCS: 71046; 80053; 84550; 85025; 86850; 86870; 86880; 86900; 86901; 86902; 86920; 94640

== ENCOUNTER 2018-05-12 08:39 | Inpatient (IN) | payer OTHER ==
[2018-05-12] MEDS ORDERED: SALT AND SODA MOUTHWASH 1,000 ML PO PRN (09:00)
[2018-05-12 10:12] LABS: Anisocytosis Moderate; Basophils % (A) 0 %; Eosinophils # (A) 0.1 k/uL (0-0.7); Eosinophils % (A) 1 %; HCT 24.2 % (34.0-46.0); HGB 7.9 gm/dL (11.4-16.0); Hypochromasia Slight; Lymphocytes # (A) 0.5 k/uL (1.0-4.8); Lymphocytes % (A) 11 %; MCH 32.1 pg (25.0-35.0); MCHC 32.8 g/dL (31.0-37.0); Macrocytosis Moderate; Mean Platelet Volume 8.7; Monocytes # (A) 0.4 k/uL (0-1.0); Monocytes % (A) 8 %; Neutrophils # (A) 3.9 k/uL (1.3-7.7); Neutrophils % (A) 76 %; Poikilocytosis Slight; RBC 2.46 m/uL (3.80-5.40); RDW 23.4 % (11.5-15.5); WBC 5.1 k/uL (3.8-10.6)
[2018-05-12 10:14] LABS: MCV 98.1 fL (80.0-100.0); Platelet Count 103 k/uL (150-450)
[2018-05-12 10:18] LABS: ALT 21 U/L (9-52); AST 20 U/L (14-36); Albumin 3.4 g/dL (3.5-5.0); Alkaline Phosphatase 88 U/L (38-126); Anion Gap 9 mmol/L; Blood Urea Nitrogen 5 mg/dL (7-17); Calcium 8.6 mg/dL (8.4-10.2); Carbon Dioxide 27 mmol/L (22-30); Chloride 104 mmol/L (98-107); Glucose 111 mg/dL (74-99); Potassium 3.1 mmol/L (3.5-5.1); Sodium 140 mmol/L (137-145); Total Bilirubin 1.1 mg/dL (0.2-1.3); Uric Acid 8.3 mg/dL (3.7-7.4)
[2018-05-12] MEDS: ONDANSETRON 16 MG in SODIUM CHLORIDE 0.9% 50 ML IVPB SCH (12:03)
[2018-05-12] MEDS: SODIUM CHLORIDE 0.9% 1,000 ML IV SCH ×3 (12:03→17:41)
[2018-05-12] MEDS ORDERED: ALBUTEROL NEBULIZED 2.5 MG/3 ML INHALATION PRN (12:23)
[2018-05-12] MEDS ORDERED: IPRATROPIUM-ALBUTEROL 3 ML NEB INHALATION PRN (12:23)
[2018-05-12] MEDS: prednisoLONE ACETATE 1% OPHTH DROPS 5 ML BTL BOTH EYES SCH ×4 (12:25→23:45)
[2018-05-12] MEDS: DEXAMETHASONE SOD PHOSPHATE 10 MG/ML 1 ML VIAL IV SCH (12:29)
[2018-05-12] MEDS ORDERED: POTASSIUM CHLORIDE ER 20 MEQ TAB.ER PO STA (12:33)
[2018-05-12] MEDS ORDERED: ALPRAZolam 0.25 MG TAB PO PRN (12:34)
[2018-05-12] MEDS: SODIUM CHLORIDE 0.9% IV SCH (12:40)
[2018-05-12] MEDS: CYTARABINE IV SCH (12:40)
[2018-05-12] MEDS: FERROUS SULFATE 325 MG TAB PO SCH (12:48)
[2018-05-12] MEDS: CALCIUM CARB-VIT D 500MG-200UN 1 EACH TAB PO SCH (12:48)
[2018-05-12] MEDS: ATORVASTATIN 20 MG TAB PO SCH (12:48)
[2018-05-12] MEDS: ESCITALOPRAM 10 MG TAB PO SCH (12:48)
[2018-05-12] MEDS: FLUTICASONE 50MCG/SPRAY NASAL 16GM EA NOSTRIL SCH (12:49)
[2018-05-12] MEDS: LORATADINE 10 MG TAB PO SCH (12:49)
[2018-05-12] MEDS: PANTOPRAZOLE 40 MG TABLET PO SCH ×2 (12:49→17:37)
[2018-05-12] MEDS: METOPROLOL TARTRATE 50 MG TAB PO SCH ×2 (12:49→20:32)
[2018-05-12] MEDS: FUROSEMIDE 20 MG TAB PO SCH ×2 (12:50→15:58)
[2018-05-12] MEDS: LEVOTHYROXINE 125 MCG TAB PO SCH (12:50)
[2018-05-12] MEDS: INSULIN ASPART 100 UNIT/ML 1 ML 10 ML VIAL SQ SCH ×3 (12:56→20:33)
[2018-05-12] MEDS: ACYCLOVIR 200 MG CAP PO SCH ×2 (13:32→20:32)
[2018-05-12] MEDS: CYANOCOBALAMIN 500 MCG TAB PO SCH (13:32)
[2018-05-12] MEDS: FLUCONAZOLE 100 MG TAB PO SCH (13:32)
[2018-05-12] MEDS: SALT AND SODA MOUTHWASH 1,000 ML PO SCH ×2 (13:32→17:37)
--- NOTE | 2018-05-12 15:13 | IR ---
EXAMINATION TYPE: IR cvc insert >=5 years DATE OF EXAM: 05/12/2018 COMPARISON: NONE CLINICAL HISTORY: Leukemia Needs long-term intravenous access for chemotherapy. PROCEDURE: After informed consent, the skin overlying the left brachial vein was localized with ultrasound and n oted to be compressible and patent. An ultrasound image was obtained and submitted on the patient's chart. The overlying skin was prepped and draped and Lidocaine was used for local anesthesia. A ski n jose was made with a scalpel. Access was gained to the vein under ultrasound guidance with a 21 ga uge needle and a 0.018 inch wire was advanced. Access site was dilated with Peel-Away sheath and cat heter tailored to the appropriate length and advanced such that the distal tip is at the cavoatrial j unction. Spot image was obtained verifying placement. Catheter was fixed to the skin and a sterile dressing was placed following hemostasis. Catheter was aspirated and flushed with saline. Patient w as discharged in stable condition without complication. Maximal barrier technique is utilized. Ultra sound image is documented on the chart. Ultrasound used with sterile technique. Fluoro time and fluoroscopic images submitted to document procedure: 0.5 minutes fluoroscopy time, 17 4 intraoperative images IMPRESSION: STATUS POST ULTRASOUND AND FLUOROSCOPIC GUIDED PICC LINE PLACEMENT, READY FOR USE. THIS PROCEDURE WAS PERFORMED BY THE UNDERSIGNED.
[2018-05-12 17:24] LABS: Glucose,Whole Blood 212 mg/dL (75-99)
--- NOTE | 2018-05-12 18:54 | P.HPIM ---
History of Present Illness H&P Date: 05/12/18 Chief Complaint: Timed Chemotherapy Malignancy History: Pt found to be leukopenic on routine blood work 11/14/17, WBC was 2.8, mild neutropenia, MCV 103.2, CBC and CMP otherwise unremarkable, peripheral smear did not reveal any suspicious morphology. CT AP 10/29/17 was done due to abdominal pain revealed fatty liver and diverticulitis. 01/10/18 bone marrow biopsy was done, positive for AML, cytogenetics and FISH were positive for inversion 16. Induction with 7+3 protocol was started on 01/16/18, repeat bone marrow biopsy on 02/13/18 revealed no residual leukemia! 0.6-2% blasts, normal cytogenetics. Induction was complicated by neutropenic sepsis, pneumonia, ventilator dependent respiratory failure. She was evaluated by Dr. Johnston, no need for allogenic transplant due to favorable finding of inversion of 16. She had 1st induction 03/10/18 and did require supportive PRBCs and platelet transfusions. Ms. Brunner is admitted for her 3rd Consolidation treatment with High dose cytarabine. Appetite is fair, no nausea, indigestion, acute changes in bowel or bladder habits, swelling, bleeding or pain. She has many questions although no acute complaints at this time. Review of Systems A 14 point review of systems assessed and completed and all negative except HPI. Past Medical History Past Medical History: Asthma, Blood Disorder, Cancer, Diabetes Mellitus, GERD/ Reflux, Hyperlipidemia, Hypertension, Respiratory Disorder, Thyroid Disorder Additional Past Medical History / Comment(s): AML,neutropenic sepsis/pneumonia/ respiratory failure and was intubated, chronic bronchial asthma, NIDDM type II, chronic back pain, neuropathy L hand, L hand 2nd and 3rd fingers are "locking up " at times, bilateral carpal tunnel, hypothyroid, iron deficiency anemia, insomnia, sinus problems;diverticulitis. History of Any Multi-Drug Resistant Organisms: None Reported Past Surgical History: Adenoidectomy, Heart Catheterization, Tonsillectomy, Tubal Ligation Additional Past Surgical History / Comment(s): BMAs, bronchoscopy with washing, picc lines, carpel tunnel right wrist, bilateral cataract removal, bilateral laser eye surgery/lens implants, colonoscopy, epidural injections. Past Anesthesia/Blood Transfusion Reactions: No Reported Reaction Additional Past Anesthesia/Blood Transfusion Reaction / Comment(s): Pt has received platelets and blood transfusions without reaction. Smoking Status: Never smoker - Past Family History Mother Family Medical History: Cancer Father Family Medical History: No Reported History Additional Family Medical History / Comment(s): Father is living. Medications and Allergies Home Medications Medication Instructions Recorded Confirmed Type Escitalopram Oxalate [Lexapro] 30 mg PO QAM 05/04/16 05/12/18 History Ferrous Sulfate [Iron (65 MG 325 mg PO DAILY 05/04/16 05/12/18 History Elemental)] Omeprazole [PriLOSEC] 20 mg PO AC-BID 05/04/16 05/12/18 History Atorvastatin [Lipitor] 20 mg PO DAILY 10/26/16 05/12/18 History Fluticasone Nasal [place] [Flonase 1 spray EA NOSTRIL DAILY 10/26/16 05/12/18 History Nasal [place]] Loratadine [Claritin] 10 mg PO DAILY 10/26/16 05/12/18 History Zolpidem [Ambien] 10 mg PO HS 10/26/16 05/12/18 History Furosemide [Lasix] 20 mg PO BID 08/19/17 05/12/18 History Levothyroxine Sodium [Synthroid] 125 mcg PO DAILY 08/19/17 05/12/18 History Potassium Chloride [Klor-Con 20] 20 meq PO BID 08/19/17 05/12/18 History Calcium Carbonate/Vitamin D3 1 tab PO DAILY 10/08/17 05/12/18 History [Calcium 600-Vit D3 400 Caplet] Metoprolol Tartrate [Lopressor] 50 mg PO BID 10/08/17 05/12/18 History Montelukast [Singulair] 10 mg PO HS 10/08/17 05/12/18 History Albuterol Inhaler [Ventolin Hfa 2 puff INHALATION RT-QID PRN 10/29/17 05/12/18 History Inhaler] Budesonide/Formoterol Fumarate 2 puff INHALATION RT-BID 10/29/17 05/12/18 History [Symbicort 160-4.5 Mcg Inhaler] Ipratropium-Albuterol Nebulize 3 ml INHALATION RT-QID PRN 10/29/17 05/12/18 History [Duoneb 0.5 mg-3 mg/3 ml Soln] Cyanocobalamin (Vitamin B-12) 1,000 mcg PO DAILY 90 Days #90 01/08/18 05/12/18 Rx [Vitamin B-12] tablet Ondansetron [Zofran] 4 mg PO Q6HR PRN #45 tab 01/24/18 05/12/18 Rx Acyclovir 400 mg PO BID #40 tablet 03/14/18 05/12/18 Rx Fluconazole [Diflucan] 100 mg PO DAILY #10 tab 03/14/18 05/12/18 Rx Ondansetron Odt [Zofran Odt] 4 mg PO Q8HR PRN #30 tab 03/15/18 05/12/18 Rx Allergies Allergy/AdvReac Type Severity Reaction Status Date / Time Penicillins Allergy Rash/Hives Verified 05/12/18 10:25 Physical Exam Vitals: Vital Signs Temp Pulse Resp BP Pulse Ox 05/12/18 12:54 98.2 F 20 107/56 95 05/12/18 09:41 110/66 05/12/18 09:19 98.6 F 82 20 97/60 93 L Intake and Output 05/12/18 05/12/18 05/12/18 06:59 14:59 22:59 Intake Total 690 Balance 690 Intake: Intake, IV Titration 690 Amount Cytarabine/Pf 6,000 mg 340 Cytarabine/Pf 600 mg In Sodium Chloride 0.9% 250 ml @ 113.333 mls/hr IV Q48H [facility] Rx#:[id number] Ondansetron 16 mg In 50 Sodium Chloride 0.9% 50 ml @ 100 mls/hr IVPB Q48H [facility] Rx#:[id number] Sodium Chloride 0.9% 1, 300 000 ml @ 150 mls/hr IV . Q6H40M [facility] Rx#:[id number] Other: Weight 120.2 kg - Constitutional General appearance: cooperative, no acute distress, obese - EENT Eyes: anicteric sclerae, EOMI, normal appearance ENT: hearing grossly normal, normal oropharynx - Neck Neck: no lymphadenopathy - Respiratory audible wheeze and congested sounding cough Respiratory: bilateral: CTA - Cardiovascular Rhythm: regular Heart sounds: normal: S1, S2 Abnormal Heart Sounds: systolic murmur leg Peripheral Edema: bilateral: None - Gastrointestinal General gastrointestinal: no absent bowel sounds, no decreased bowel sounds, no distended, no hepatomegaly, no hyperactive bowel sounds, normal bowel sounds, no organomegaly, no rigid, no scaphoid, soft, no splenomegaly, no tenderness, no umbilical hernia, no ventral hernia - Integumentary Integumentary: normal turgor, pale - Neurologic Neurologic: CNII-XII intact - Musculoskeletal Musculoskeletal: strength equal bilaterally - Psychiatric Psychiatric: A&O x's 3, appropriate affect, intact judgment & insight Results CBC & Chem 7: 05/12/18 09:40 05/12/18 09:40 Labs: Abnormal Lab Results - Last 24 Hours (Table) 05/12/18 05/12/18 05/12/18 Range/Units 09:40 09:40 17:12 RBC 2.46 L (3.80-5.40) m/uL Hgb 7.9 L (11.4-16.0) gm/dL Hct 24.2 L (34.0-46.0) % RDW 23.4 H (11.5-15.5) % Plt Count 103 L D (150-450) k/uL Lymphocytes # 0.5 L (1.0-4.8) k/uL Potassium 3.1 L (3.5-5.1) mmol/L BUN 5 L (7-17) mg/dL Glucose 111 H (74-99) mg/dL POC Glucose (mg/dL) 212 H (75-99) mg/dL Uric Acid 8.3 H (3.7-7.4) mg/dL Total Protein 6.0 L (6.3-8.2) g/dL Albumin 3.4 L (3.5-5.0) g/dL Thrombosis Risk Factor Assmnt - DVT/VTE Prophylaxis DVT/VTE Prophylaxis: Mechanical Prophylaxis ordered - Choose All That Apply Any of the Below Risk Factors Present?: Yes Each Factor Represents 1 point: Obesity (BMI >25) Other Risk Factors: Yes Each Risk Factor Represents 2 Points: Malignancy Other congenital or acquired thrombophilia - If yes, enter type in comment: No Thrombosis Risk Factor Assessment Total Risk Factor Score: 3 Thrombosis Risk Factor Assessment Level: Moderate Risk Assessment and Plan Plan: Assessment and Recommendations: (1) Acute myeloid leukemia Narrative/Plan: - Admitted for 3nd cycle of consolidation with high dose cytarabine. - Labs daily - Daily follow up - Home meds reconciled Current Visit: Yes Status: Acute Priority: High Code(s): C92.00 - ACUTE MYELOBLASTIC LEUKEMIA, NOT HAVING ACHIEVED REMISSION SNOMED Code(s): 78305003 (2) Antineoplastic chemotherapy induced anemia Narrative/Plan: - Conservative transfusion only. No blood today, Hgb monitoring daily Current Visit: Yes Status: Chronic Priority: Medium Code(s): D64.81 - ANEMIA DUE TO ANTINEOPLASTIC CHEMOTHERAPY; T45.1X5A - ADVERSE EFFECT OF ANTINEOPLASTIC AND IMMUNOSUP DRUGS, INIT SNOMED Code(s): 712018345 (3) Cough Narrative/Plan: - Pt home respiratory meds reconciled. - CXR in AM if progressive or persistent Current Visit: Yes Status: Acute Priority: High Code(s): R05 - COUGH SNOMED Code(s): 81233873 (4) Elevated uric acid in blood Narrative/Plan: - Mild elevation, allopurinol ordered, lab ordered daily Current Visit: Yes Status: Acute Priority: Medium Code(s): E79.0 - HYPERURICEMIA W/O SIGNS OF INFLAM ARTHRIT AND TOPHACEOUS DIS SNOMED Code(s): 34381815 (5) Hypokalemia: - check mag and replace GI/Mechanical DVT prophylaxis Follow up daily Physician Attestation: I have completed the full history and physical of this patient and agree with above dictation by Ashlee Temple NP. Dictated as a scribe
[2018-05-12 19:57] LABS: Glucose,Whole Blood 245 mg/dL (75-99)
[2018-05-12] MEDS: SYMBICORT 160-4.5 MCG INHALER INHALATION SCH (20:32)
[2018-05-12] MEDS: MONTELUKAST 10 MG TAB PO SCH (20:32)
[2018-05-12] MEDS: POTASSIUM CHLORIDE ER 20 MEQ TAB.ER PO SCH (20:32)
[2018-05-12 22:43] LABS: Hemoglobin A1C 6.5 % (4.0-6.0)
[2018-05-12] MEDS: ZOLPIDEM 10 MG TAB PO SCH (23:45)
[2018-05-13] MEDS: ONDANSETRON 4 MG/2 ML VIAL IVP PRN (00:37)
[2018-05-13] MEDS: CYTARABINE IV SCH (00:47)
[2018-05-13] MEDS: SODIUM CHLORIDE 0.9% IV SCH (00:47)
[2018-05-13] MEDS: SODIUM CHLORIDE 0.9% 1,000 ML IV SCH ×4 (00:53→22:36)
[2018-05-13] MEDS: LEVOTHYROXINE 125 MCG TAB PO SCH (05:42)
[2018-05-13 07:11] LABS: Glucose,Whole Blood 234 mg/dL (75-99)
[2018-05-13] MEDS: SALT AND SODA MOUTHWASH 1,000 ML PO SCH ×3 (07:55→17:32)
[2018-05-13] MEDS: ACYCLOVIR 200 MG CAP PO SCH ×2 (07:55→20:42)
[2018-05-13] MEDS: PANTOPRAZOLE 40 MG TABLET PO SCH ×2 (07:55→17:33)
[2018-05-13] MEDS: FUROSEMIDE 20 MG TAB PO SCH ×2 (07:56→15:16)
[2018-05-13] MEDS: FLUTICASONE 50MCG/SPRAY NASAL 16GM EA NOSTRIL SCH (07:56)
[2018-05-13] MEDS: ESCITALOPRAM 10 MG TAB PO SCH (07:56)
[2018-05-13] MEDS: FLUCONAZOLE 100 MG TAB PO SCH (07:56)
[2018-05-13] MEDS: ATORVASTATIN 20 MG TAB PO SCH (07:56)
[2018-05-13] MEDS: prednisoLONE ACETATE 1% OPHTH DROPS 5 ML BTL BOTH EYES SCH ×4 (07:57→22:35)
[2018-05-13] MEDS: METOPROLOL TARTRATE 50 MG TAB PO SCH ×2 (07:57→20:42)
[2018-05-13] MEDS: LORATADINE 10 MG TAB PO SCH (07:57)
[2018-05-13] MEDS: POTASSIUM CHLORIDE ER 20 MEQ TAB.ER PO SCH ×2 (07:57→20:42)
[2018-05-13] MEDS: INSULIN ASPART 100 UNIT/ML 1 ML 10 ML VIAL SQ SCH ×4 (08:06→20:44)
[2018-05-13] MEDS: SYMBICORT 160-4.5 MCG INHALER INHALATION SCH ×2 (08:20→20:39)
[2018-05-13 08:35] LABS: Anisocytosis Moderate; HCT 22.5 % (34.0-46.0); HGB 7.2 gm/dL (11.4-16.0); Hypochromasia Moderate; MCH 31.9 pg (25.0-35.0); MCHC 31.9 g/dL (31.0-37.0); Macrocytosis Marked; Mean Platelet Volume 8.7; Platelet Count 113 k/uL (150-450); RBC 2.25 m/uL (3.80-5.40); RDW 22.9 % (11.5-15.5); WBC 5.9 k/uL (3.8-10.6)
[2018-05-13 08:49] LABS: ALT 21 U/L (9-52); AST 22 U/L (14-36); Albumin 3.6 g/dL (3.5-5.0); Alkaline Phosphatase 76 U/L (38-126); Anion Gap 10 mmol/L; Blood Urea Nitrogen 8 mg/dL (7-17); Calcium 8.6 mg/dL (8.4-10.2); Carbon Dioxide 23 mmol/L (22-30); Chloride 109 mmol/L (98-107); Glucose 188 mg/dL (74-99); Magnesium 1.4 mg/dL (1.6-2.3); Potassium 3.9 mmol/L (3.5-5.1); Sodium 142 mmol/L (137-145); Total Bilirubin 0.8 mg/dL (0.2-1.3); Total Protein 6.3 g/dL (6.3-8.2); Uric Acid 8.1 mg/dL (3.7-7.4)
[2018-05-13 10:36] VITALS: BMI 46.9
[2018-05-13 10:42] LABS: Band Neutrophils % 1 %; Lymphocytes # (M) 0.24 k/uL (1.0-4.8); Myelocytes # (M) 0.06 k/uL (0); Myelocytes % 1 %; Neutrophils % (M) 91 %; Nucleated Red Blood Cells 0 /100 WBC (0-0); Poikilocytosis (M) Present; Total Cells Counted 200
[2018-05-13 11:33] LABS: Glucose,Whole Blood 179 mg/dL (75-99)
[2018-05-13] MEDS: CALCIUM CARB-VIT D 500MG-200UN 1 EACH TAB PO SCH (12:57)
[2018-05-13] MEDS: FERROUS SULFATE 325 MG TAB PO SCH (12:57)
[2018-05-13] MEDS: CYANOCOBALAMIN 500 MCG TAB PO SCH (12:58)
[2018-05-13] MEDS ORDERED: Magnesium Replacement Protocol 1 EACH MISC MISCELLANE PRN (13:12)
--- NOTE | 2018-05-13 13:42 | P.PN ---
Subjective Progress Note Date: 05/13/18 Principal diagnosis: AML Tolerating consolidation well, no acute complaints today Objective - Vital Signs Vital signs: Vital Signs Temp 97.7 F 05/13/18 09:52 Pulse 70 05/13/18 09:52 Resp 17 05/13/18 09:52 BP 115/76 05/13/18 09:52 Pulse Ox 94 L 05/13/18 09:52 Intake & Output 05/12/18 05/13/18 05/13/18 18:59 06:59 18:59 Intake Total 690 1900 Balance 690 1900 Weight 120.2 kg 120.2 kg Intake: Intake, IV Titration 690 1900 Amount Cytarabine/Pf 6,000 mg 340 250 Cytarabine/Pf 600 mg In Sodium Chloride 0.9% 250 ml @ 113.333 mls/hr IV Q48H [facility] Rx#:[id number] Ondansetron 16 mg In 50 Sodium Chloride 0.9% 50 ml @ 100 mls/hr IVPB Q48H [facility] Rx#:[id number] Sodium Chloride 0.9% 1, 300 1650 000 ml @ 150 mls/hr IV . Q6H40M [facility] Rx#:[id number] Other: Voiding Method Toilet - Exam - Constitutional General appearance: cooperative, no acute distress, obese - EENT Eyes: anicteric sclerae, EOMI, normal appearance ENT: hearing grossly normal, normal oropharynx - Neck Neck: no lymphadenopathy - Respiratory audible wheeze and congested sounding cough Respiratory: bilateral: CTA - Cardiovascular Rhythm: regular Heart sounds: normal: S1, S2 Abnormal Heart Sounds: systolic murmur leg Peripheral Edema: bilateral: None - Gastrointestinal General gastrointestinal: no absent bowel sounds, no decreased bowel sounds, no distended, no hepatomegaly, no hyperactive bowel sounds, normal bowel sounds, no organomegaly, no rigid, no scaphoid, soft, no splenomegaly, no tenderness, no umbilical hernia, no ventral hernia - Integumentary Integumentary: normal turgor, pale - Neurologic Neurologic: CNII-XII intact - Musculoskeletal Musculoskeletal: strength equal bilaterally - Psychiatric Psychiatric: A&O x's 3, appropriate affect, intact judgment & insight - Labs CBC & Chem 7: 05/13/18 08:00 05/13/18 08:00 Labs: Abnormal Lab Results - Last 24 Hours (Table) 05/12/18 05/12/18 05/12/18 Range/Units 09:40 17:12 19:56 RBC (3.80-5.40) m/uL Hgb (11.4-16.0) gm/dL Hct (34.0-46.0) % RDW (11.5-15.5) % Plt Count (150-450) k/uL Lymphocytes # (Manual) (1.0-4.8) k/uL Myelocytes # (Manual) (0) k/uL Chloride (98-107) mmol/L Glucose (74-99) mg/dL POC Glucose (mg/dL) 212 H 245 H (75-99) mg/dL Hemoglobin A1c 6.5 H (4.0-6.0) % Uric Acid (3.7-7.4) mg/dL Magnesium (1.6-2.3) mg/dL 05/13/18 05/13/18 05/13/18 Range/Units 07:09 08:00 08:00 RBC 2.25 L (3.80-5.40) m/uL Hgb 7.2 L (11.4-16.0) gm/dL Hct 22.5 L (34.0-46.0) % RDW 22.9 H (11.5-15.5) % Plt Count 113 L (150-450) k/uL Lymphocytes # (Manual) 0.24 L (1.0-4.8) k/uL Myelocytes # (Manual) 0.06 H (0) k/uL Chloride 109 H (98-107) mmol/L Glucose 188 H (74-99) mg/dL POC Glucose (mg/dL) 234 H (75-99) mg/dL Hemoglobin A1c (4.0-6.0) % Uric Acid 8.1 H (3.7-7.4) mg/dL Magnesium 1.4 L (1.6-2.3) mg/dL 05/13/18 Range/Units 11:24 RBC (3.80-5.40) m/uL Hgb (11.4-16.0) gm/dL Hct (34.0-46.0) % RDW (11.5-15.5) % Plt Count (150-450) k/uL Lymphocytes # (Manual) (1.0-4.8) k/uL Myelocytes # (Manual) (0) k/uL Chloride (98-107) mmol/L Glucose (74-99) mg/dL POC Glucose (mg/dL) 179 H (75-99) mg/dL Hemoglobin A1c (4.0-6.0) % Uric Acid (3.7-7.4) mg/dL Magnesium (1.6-2.3) mg/dL Assessment and Plan Plan: Assessment and Recommendations: (1) Acute myeloid leukemia Narrative/Plan: - Admitted for 3nd cycle of consolidation with high dose cytarabine. - Labs daily - Daily follow up - Home meds reconciled Current Visit: Yes Status: Acute Priority: High Code(s): C92.00 - ACUTE MYELOBLASTIC LEUKEMIA, NOT HAVING ACHIEVED REMISSION SNOMED Code(s): 80679934 (2) Antineoplastic chemotherapy induced anemia Narrative/Plan: - Conservative transfusion only. No blood today, Hgb monitoring daily Current Visit: Yes Status: Chronic Priority: Medium Code(s): D64.81 - ANEMIA DUE TO ANTINEOPLASTIC CHEMOTHERAPY; T45.1X5A - ADVERSE EFFECT OF ANTINEOPLASTIC AND IMMUNOSUP DRUGS, INIT SNOMED Code(s): 814522184 (3) Cough Narrative/Plan: - Pt home respiratory meds reconciled. - CXR in AM if progressive or persistent Current Visit: Yes Status: Acute Priority: High Code(s): R05 - COUGH SNOMED Code(s): 24707334 (4) Elevated uric acid in blood Narrative/Plan: - Mild elevation, allopurinol ordered, lab ordered daily Current Visit: Yes Status: Acute Priority: Medium Code(s): E79.0 - HYPERURICEMIA W/O SIGNS OF INFLAM ARTHRIT AND TOPHACEOUS DIS SNOMED Code(s): 12148366 (5) Hypokalemia: - check mag and replace GI/Mechanical DVT prophylaxis Follow up daily Continue with Day two of chemotherapy Physician Attestation: I have completed the full history and physical of this patient and agree with above dictation by Ashlee Temple NP. Dictated as a scribe
[2018-05-13] MEDS: MAGNESIUM SULFATE-D5W PMX 1 GM in DEXTROSE/WATER 1 100ML.BAG IVPB SCH ×3 (14:01→17:30)
[2018-05-13 17:21] LABS: Glucose,Whole Blood 185 mg/dL (75-99)
--- NOTE | 2018-05-13 18:16 | PN ---
PROGRESS NOTE DATE OF SERVICE: 05/13/2018 This 53-year-old woman who was admitted with chemotherapy for AML is being closely monitored. No chest pain. No palpitations. No fever. On exam, alert and oriented x3. Pulse 70, blood pressure 115/76, respiration 17, temperature 97.7, pulse ox 94% on room air. HEENT: Conjunctivae normal. Oral mucosa moist. NECK: No jugular venous distention. No carotid bruit. No lymph node enlargement. CARDIOVASCULAR SYSTEM: S1, S2 muffled. No S3. No S4. RESPIRATORY SYSTEM: Breath sounds diminished at the bases. A few scattered rhonchi. ABDOMEN: Soft, non-tender. NERVOUS SYSTEM: No focal deficit. LABS: WBC 5.9, hemoglobin 7.2. ASSESSMENT: 1. AML, on chemotherapy. 2. Diabetes mellitus, type 2. 3. Anemia with thrombocytopenia and bicytopenia. 4. History of bronchial asthma. 5. History of hypomagnesemia. 6. Hypokalemia. 7. History of sepsis. 8. Hypertension. 9. History of chronic hypoxic respiratory failure, on home oxygen. 10.Hyperlipidemia. 11.Obesity. 12.Gastroesophageal reflux disease. 13.Chronic low back pain. 14.Degenerative joint disease. 15.Hypothyroidism. 16.Anxiety, depression. RECOMMENDATIONS AND DISCUSSION: I recommend to continue current medication, continue symptomatic treatment. I recommend monitoring the labs closely. Hemoglobin is 7.2 at this time. Closely follow with Hematology/Oncology. Further recommendations to follow. MMODL / IJN: [id number] /
[2018-05-13 20:07] LABS: Glucose,Whole Blood 191 mg/dL (75-99)
[2018-05-13] MEDS: MONTELUKAST 10 MG TAB PO SCH (20:42)
[2018-05-13] MEDS: ZOLPIDEM 10 MG TAB PO SCH (22:35)
[2018-05-14] MEDS: LEVOTHYROXINE 125 MCG TAB PO SCH (05:56)
[2018-05-14 06:55] LABS: Glucose,Whole Blood 131 mg/dL (75-99)
[2018-05-14] MEDS: SYMBICORT 160-4.5 MCG INHALER INHALATION SCH ×2 (08:00→21:41)
[2018-05-14] MEDS: INSULIN ASPART 100 UNIT/ML 1 ML 10 ML VIAL SQ SCH ×4 (08:08→21:40)
[2018-05-14] MEDS: PANTOPRAZOLE 40 MG TABLET PO SCH ×2 (08:09→18:25)
[2018-05-14] MEDS: SALT AND SODA MOUTHWASH 1,000 ML PO SCH ×3 (08:09→18:24)
[2018-05-14] MEDS: ACYCLOVIR 200 MG CAP PO SCH ×2 (08:10→21:39)
[2018-05-14] MEDS: ATORVASTATIN 20 MG TAB PO SCH (08:10)
[2018-05-14] MEDS: ESCITALOPRAM 10 MG TAB PO SCH (08:10)
[2018-05-14] MEDS: LORATADINE 10 MG TAB PO SCH (08:11)
[2018-05-14] MEDS: FLUTICASONE 50MCG/SPRAY NASAL 16GM EA NOSTRIL SCH (08:11)
[2018-05-14] MEDS: FUROSEMIDE 20 MG TAB PO SCH ×2 (08:11→15:38)
[2018-05-14] MEDS: FLUCONAZOLE 100 MG TAB PO SCH (08:11)
[2018-05-14] MEDS: prednisoLONE ACETATE 1% OPHTH DROPS 5 ML BTL BOTH EYES SCH ×4 (08:12→21:40)
[2018-05-14] MEDS: METOPROLOL TARTRATE 50 MG TAB PO SCH ×2 (08:12→21:39)
[2018-05-14] MEDS: POTASSIUM CHLORIDE ER 20 MEQ TAB.ER PO SCH ×2 (08:12→21:40)
[2018-05-14 10:22] LABS: Anisocytosis Moderate; Basophils % (A) 0 %; Eosinophils # (A) 0.1 k/uL (0-0.7); Eosinophils % (A) 1 %; HCT 22.9 % (34.0-46.0); HGB 7.3 gm/dL (11.4-16.0); Hypochromasia Marked; Lymphocytes # (A) 0.4 k/uL (1.0-4.8); Lymphocytes % (A) 7 %; MCH 32.5 pg (25.0-35.0); MCHC 31.8 g/dL (31.0-37.0); MCV 102.1 fL (80.0-100.0); Macrocytosis Marked; Mean Platelet Volume 8.8; Monocytes # (A) 0.1 k/uL (0-1.0); Monocytes % (A) 2 %; Neutrophils # (A) 4.6 k/uL (1.3-7.7); Neutrophils % (A) 89 %; Platelet Count 122 k/uL (150-450); RBC 2.24 m/uL (3.80-5.40); RDW 22.7 % (11.5-15.5); WBC 5.2 k/uL (3.8-10.6)
[2018-05-14 10:26] LABS: ALT 13 U/L (9-52); AST 23 U/L (14-36); Alkaline Phosphatase 78 U/L (38-126); Anion Gap 14 mmol/L; Blood Urea Nitrogen 11 mg/dL (7-17); Calcium 8.9 mg/dL (8.4-10.2); Carbon Dioxide 20 mmol/L (22-30); Chloride 108 mmol/L (98-107); Glucose 163 mg/dL (74-99); Magnesium 1.9 mg/dL (1.6-2.3); Potassium 3.5 mmol/L (3.5-5.1); Sodium 142 mmol/L (137-145); Total Protein 6.9 g/dL (6.3-8.2); Uric Acid 6.8 mg/dL (3.7-7.4)
[2018-05-14 11:09] LABS: Glucose,Whole Blood 145 mg/dL (75-99)
[2018-05-14] MEDS: FERROUS SULFATE 325 MG TAB PO SCH (12:27)
[2018-05-14] MEDS: CALCIUM CARB-VIT D 500MG-200UN 1 EACH TAB PO SCH (12:27)
[2018-05-14] MEDS: DEXAMETHASONE SOD PHOSPHATE 10 MG/ML 1 ML VIAL IV SCH (12:27)
[2018-05-14] MEDS: CYANOCOBALAMIN 500 MCG TAB PO SCH (12:27)
[2018-05-14] MEDS: ONDANSETRON 16 MG in SODIUM CHLORIDE 0.9% 50 ML IVPB SCH (12:27)
[2018-05-14] MEDS: SODIUM CHLORIDE 0.9% IV SCH (13:14)
[2018-05-14] MEDS: CYTARABINE IV SCH (13:14)
[2018-05-14] MEDS: SODIUM CHLORIDE 0.9% 1,000 ML IV SCH (15:36)
[2018-05-14 17:14] LABS: Glucose,Whole Blood 258 mg/dL (75-99)
--- NOTE | 2018-05-14 17:44 | PN ---
PROGRESS NOTE DATE OF SERVICE: 05/14/2018 This 53-year-old woman who was admitted after chemotherapy for AML is being closely monitored. No chest pain. No palpitations. No fever. No shortness. No cough. PHYSICAL EXAM: Alert and oriented times three. Pulse is 69. Blood pressure 123/56, respiration 17, temperature 98.4, pulse ox 94% on room air. HEENT: Conjunctivae normal. NECK: No JVD. Cardiac: S1, S2. Respirations: Breath sounds diminished in the bases. A few scattered rhonchi. No crackles. ABDOMEN: Soft, nontender. Legs are no edema, no swelling. LABS: Hemoglobin 7.3. ASSESSMENT: 1. Acute myelogenous leukemia on chemotherapy. 2. Diabetes type 2. 3. Anemia, thrombocytopenia, bicytopenia. 4. History of bronchial asthma. 5. History of hypomagnesemia. 6. Hypokalemia. 7. History of sepsis. 8. History of fluid overload. 9. Hypertension. 10.History of chronic hypoxic respiratory failure, on home O2. 11.Hyperlipidemia. 12.Obesity. 13.Gastroesophageal reflux disease. 14.Chronic low back pain. 15.Degenerative joint disease. 16.Hypothyroidism. 17.Anxiety, depression. RECOMMENDATIONS AND DISCUSSION: Recommend to continue current medications, management. Symptomatic treatment. Otherwise, I would attempt to cut down the IV fluids per Hematology/Oncology. Continue the rest of medications. Further recommendations to follow. MMODL / IJN: [id number] /
--- NOTE | 2018-05-14 18:11 | P.PN ---
Subjective Progress Note Date: 05/14/18 The patient denies any new issues overnight. She is on day #3 of high-dose araC for consolidation for AML in remission. No history of fever/chills/nausea/ vomiting/sore throat/diarrhea. She does feel fatigued. Appetite is fair Objective - Vital Signs Vital signs: Vital Signs Temp 98.1 F 05/14/18 17:24 Pulse 72 05/14/18 17:24 Resp 18 05/14/18 17:24 BP 119/68 05/14/18 17:24 Pulse Ox 93 L 05/14/18 17:24 Intake & Output 05/13/18 05/14/18 05/14/18 18:59 06:59 18:59 Intake Total 480 Balance 480 Weight 120.2 kg 120.2 kg Intake: Oral 480 Other: Voiding Method Toilet # Voids 3 3 3 - Constitutional General appearance: Present: no acute distress - EENT Eyes: Present: EOMI ENT: Present: hearing grossly normal, normal oropharynx - Respiratory Respiratory: bilateral: CTA - Cardiovascular Rhythm: regular Heart sounds: normal: S1, S2 - Gastrointestinal General gastrointestinal: Present: soft - Integumentary Integumentary: Present: normal - Neurologic Neurologic: Present: CNII-XII intact - Musculoskeletal Musculoskeletal: Present: generalized weakness, strength equal bilaterally - Psychiatric Psychiatric: Present: A&O x's 3, appropriate affect - Labs CBC & Chem 7: 05/14/18 09:33 05/14/18 09:33 Labs: Abnormal Lab Results - Last 24 Hours (Table) 05/13/18 05/14/18 05/14/18 Range/Units 20:05 06:54 09:33 RBC 2.24 L (3.80-5.40) m/uL Hgb 7.3 L (11.4-16.0) gm/dL Hct 22.9 L (34.0-46.0) % MCV 102.1 H (80.0-100.0) fL RDW 22.7 H (11.5-15.5) % Plt Count 122 L (150-450) k/uL Lymphocytes # 0.4 L (1.0-4.8) k/uL Chloride (98-107) mmol/L Carbon Dioxide (22-30) mmol/L Glucose (74-99) mg/dL POC Glucose (mg/dL) 191 H 131 H (75-99) mg/dL 05/14/18 05/14/18 05/14/18 Range/Units 09:33 11:08 17:13 RBC (3.80-5.40) m/uL Hgb (11.4-16.0) gm/dL Hct (34.0-46.0) % MCV (80.0-100.0) fL RDW (11.5-15.5) % Plt Count (150-450) k/uL Lymphocytes # (1.0-4.8) k/uL Chloride 108 H (98-107) mmol/L Carbon Dioxide 20 L (22-30) mmol/L Glucose 163 H (74-99) mg/dL POC Glucose (mg/dL) 145 H 258 H (75-99) mg/dL Assessment and Plan (1) Acute myeloid leukemia Narrative/Plan: The patient has a history of AML currently in remission. She is admitted for high dose infusional chemotherapy, for consolidation. She is day #3 of high- dose cytarabine. So far she is tolerating treatment well. Continue treatment per protocol, with monitoring with physical exams and labs, which have been ordered Current Visit: Yes Status: Acute Priority: High Code(s): C92.00 - ACUTE MYELOBLASTIC LEUKEMIA, NOT HAVING ACHIEVED REMISSION SNOMED Code(s): 86214872 (2) Antineoplastic chemotherapy induced anemia Narrative/Plan: Drop in hemoglobin during this admission has been somewhat fast, compared to previous admissions. This is expected as she progresses through more chemotherapy. Counts are still in the safe range. Continue to monitor and transfuse if hemoglobin falls below 7. Current Visit: No Status: Chronic Priority: Medium Code(s): D64.81 - ANEMIA DUE TO ANTINEOPLASTIC CHEMOTHERAPY; T45.1X5A - ADVERSE EFFECT OF ANTINEOPLASTIC AND IMMUNOSUP DRUGS, INIT SNOMED Code(s): 782538410
[2018-05-14 20:26] LABS: Glucose,Whole Blood 299 mg/dL (75-99)
[2018-05-14] MEDS: MONTELUKAST 10 MG TAB PO SCH (21:40)
[2018-05-14] MEDS: ZOLPIDEM 10 MG TAB PO SCH (23:52)
[2018-05-15] MEDS: CYTARABINE IV SCH (01:16)
[2018-05-15] MEDS: SODIUM CHLORIDE 0.9% IV SCH (01:16)
[2018-05-15] MEDS: ONDANSETRON 4 MG/2 ML VIAL IVP PRN (01:22)
[2018-05-15] MEDS: SODIUM CHLORIDE 0.9% 1,000 ML IV SCH ×2 (05:01→21:20)
[2018-05-15] MEDS: LEVOTHYROXINE 125 MCG TAB PO SCH (05:32)
[2018-05-15 07:28] LABS: Glucose,Whole Blood 201 mg/dL (75-99)
[2018-05-15 07:55] LABS: Anisocytosis Moderate; Basophils % (A) 0 %; Eosinophils % (A) 1 %; Hypochromasia Moderate; Lymphocytes # (A) 0.1 k/uL (1.0-4.8); Lymphocytes % (A) 4 %; MCH 32.4 pg (25.0-35.0); MCHC 32.1 g/dL (31.0-37.0); MCV 100.9 fL (80.0-100.0); Macrocytosis Marked; Mean Platelet Volume 8.3; Monocytes # (A) 0.1 k/uL (0-1.0); Monocytes % (A) 3 %; Neutrophils # (A) 2.4 k/uL (1.3-7.7); Neutrophils % (A) 92 %; RBC 1.96 m/uL (3.80-5.40); RDW 21.9 % (11.5-15.5); WBC 2.6 k/uL (3.8-10.6)
[2018-05-15 08:00] LABS: ALT 28 U/L (9-52); AST 22 U/L (14-36); Albumin 3.8 g/dL (3.5-5.0); Alkaline Phosphatase 75 U/L (38-126); Anion Gap 6 mmol/L; Blood Urea Nitrogen 13 mg/dL (7-17); Carbon Dioxide 26 mmol/L (22-30); Chloride 108 mmol/L (98-107); Glucose 182 mg/dL (74-99); Magnesium 1.9 mg/dL (1.6-2.3); Potassium 4.8 mmol/L (3.5-5.1); Sodium 140 mmol/L (137-145); Total Bilirubin 0.9 mg/dL (0.2-1.3); Total Protein 6.6 g/dL (6.3-8.2); Uric Acid 5.7 mg/dL (3.7-7.4)
[2018-05-15] MEDS: INSULIN ASPART 100 UNIT/ML 1 ML 10 ML VIAL SQ SCH ×4 (08:01→21:19)
[2018-05-15] MEDS: prednisoLONE ACETATE 1% OPHTH DROPS 5 ML BTL BOTH EYES SCH ×4 (08:02→21:21)
[2018-05-15] MEDS: PANTOPRAZOLE 40 MG TABLET PO SCH ×2 (08:02→17:37)
[2018-05-15] MEDS: LORATADINE 10 MG TAB PO SCH (08:02)
[2018-05-15] MEDS: ACYCLOVIR 200 MG CAP PO SCH ×2 (08:02→21:20)
[2018-05-15] MEDS: FUROSEMIDE 20 MG TAB PO SCH ×2 (08:02→15:08)
[2018-05-15] MEDS: METOPROLOL TARTRATE 50 MG TAB PO SCH ×2 (08:02→21:20)
[2018-05-15] MEDS: ESCITALOPRAM 10 MG TAB PO SCH (08:02)
[2018-05-15] MEDS: FLUCONAZOLE 100 MG TAB PO SCH (08:02)
[2018-05-15] MEDS: FLUTICASONE 50MCG/SPRAY NASAL 16GM EA NOSTRIL SCH (08:02)
[2018-05-15] MEDS: POTASSIUM CHLORIDE ER 20 MEQ TAB.ER PO SCH ×2 (08:02→21:20)
[2018-05-15] MEDS: ATORVASTATIN 20 MG TAB PO SCH (08:02)
[2018-05-15] MEDS: SALT AND SODA MOUTHWASH 1,000 ML PO SCH ×3 (08:03→17:37)
[2018-05-15 08:10] LABS: HCT 19.8 % (34.0-46.0); HGB 6.4 gm/dL (11.4-16.0); Platelet Count 89 k/uL (150-450)
[2018-05-15] MEDS: SYMBICORT 160-4.5 MCG INHALER INHALATION SCH ×2 (08:51→20:34)
--- NOTE | 2018-05-15 11:17 | P.PN ---
Subjective Progress Note Date: 05/15/18 The patient states that he feels somewhat tired today as she had difficulty sleeping yesterday. No history of any fever/chills/nausea/vomiting/obvious bleeding. Appetite is fair. No change in bowel habits. Objective - Vital Signs Vital signs: Vital Signs Temp 97.5 F L 05/15/18 08:00 Pulse 75 05/15/18 08:00 Resp 20 05/15/18 08:00 BP 128/72 05/15/18 08:00 Pulse Ox 100 05/15/18 08:00 Intake & Output 05/14/18 05/15/18 05/15/18 18:59 06:59 18:59 Intake Total 960 Balance 960 Weight 120.2 kg Intake: Intake, IV Titration 960 Amount Cytarabine/Pf 6,000 mg 250 Cytarabine/Pf 600 mg In Sodium Chloride 0.9% 250 ml @ 113.333 mls/hr IV Q48H [facility] Rx#:[id number] Ondansetron 16 mg In 50 Sodium Chloride 0.9% 50 ml @ 100 mls/hr IVPB Q48H [facility] Rx#:[id number] Sodium Chloride 0.9% 1, 660 000 ml @ 60 mls/hr IV . [id number] [facility] Rx#:[id number] Other: Voiding Method Toilet Toilet # Voids 3 1 - Constitutional General appearance: Present: no acute distress - EENT Eyes: Present: EOMI ENT: Present: hearing grossly normal, normal oropharynx - Respiratory Respiratory: bilateral: CTA - Cardiovascular Rhythm: regular Heart sounds: normal: S1, S2 - Gastrointestinal General gastrointestinal: Present: normal bowel sounds, soft - Integumentary Integumentary: Present: normal - Neurologic Neurologic: Present: CNII-XII intact - Musculoskeletal Musculoskeletal: Present: generalized weakness, strength equal bilaterally - Psychiatric Psychiatric: Present: A&O x's 3 - Labs CBC & Chem 7: 05/15/18 07:11 05/15/18 07:11 Labs: Abnormal Lab Results - Last 24 Hours (Table) 05/14/18 05/14/18 05/15/18 Range/Units 17:13 20:24 07:11 WBC 2.6 L (3.8-10.6) k/uL RBC 1.96 L (3.80-5.40) m/uL Hgb 6.4 L* (11.4-16.0) gm/dL Hct 19.8 L* (34.0-46.0) % MCV 100.9 H (80.0-100.0) fL RDW 21.9 H (11.5-15.5) % Plt Count 89 L (150-450) k/uL Lymphocytes # 0.1 L (1.0-4.8) k/uL Chloride (98-107) mmol/L Glucose (74-99) mg/dL POC Glucose (mg/dL) 258 H 299 H (75-99) mg/dL Crossmatch 05/15/18 05/15/18 05/15/18 Range/Units 07:11 07:26 08:29 WBC (3.8-10.6) k/uL RBC (3.80-5.40) m/uL Hgb (11.4-16.0) gm/dL Hct (34.0-46.0) % MCV (80.0-100.0) fL RDW (11.5-15.5) % Plt Count (150-450) k/uL Lymphocytes # (1.0-4.8) k/uL Chloride 108 H (98-107) mmol/L Glucose 182 H (74-99) mg/dL POC Glucose (mg/dL) 201 H (75-99) mg/dL Crossmatch See Detail Assessment and Plan (1) Acute myeloid leukemia Narrative/Plan: The patient is on day #4 of consolidation therapy with high-dose cytarabine. She continues to tolerate treatment well so far subjectively. Continue chemotherapy per protocol. Continue monitoring with clinical exams, and labs, which have been ordered Current Visit: Yes Status: Acute Priority: High Code(s): C92.00 - ACUTE MYELOBLASTIC LEUKEMIA, NOT HAVING ACHIEVED REMISSION SNOMED Code(s): 25187843 (2) Antineoplastic chemotherapy induced anemia Narrative/Plan: Hemoglobin was lower than 7 today. Therefore one unit of irradiated blood has been ordered. Continue to monitor with supplementation as needed Current Visit: No Status: Chronic Priority: Medium Code(s): D64.81 - ANEMIA DUE TO ANTINEOPLASTIC CHEMOTHERAPY; T45.1X5A - ADVERSE EFFECT OF ANTINEOPLASTIC AND IMMUNOSUP DRUGS, INIT SNOMED Code(s): 432289092
[2018-05-15 11:29] LABS: Glucose,Whole Blood 186 mg/dL (75-99)
[2018-05-15] MEDS: CALCIUM CARB-VIT D 500MG-200UN 1 EACH TAB PO SCH (15:09)
[2018-05-15] MEDS: CYANOCOBALAMIN 500 MCG TAB PO SCH (15:09)
[2018-05-15] MEDS: FERROUS SULFATE 325 MG TAB PO SCH (15:09)
[2018-05-15 17:03] LABS: Glucose,Whole Blood 247 mg/dL (75-99)
[2018-05-15 21:07] LABS: Glucose,Whole Blood 240 mg/dL (75-99)
[2018-05-15] MEDS: MONTELUKAST 10 MG TAB PO SCH (21:20)
[2018-05-15] MEDS: ZOLPIDEM 10 MG TAB PO SCH (22:51)
--- NOTE | 2018-05-15 23:15 | PN ---
PROGRESS NOTE DATE OF SERVICE: 05/15/2018 This 53-year-old woman was admitted with acute myeloid leukemia on chemotherapy. She is complaining of some tiredness today. The hemoglobin is 6.4. The patient has pancytopenia also. No chest pain. No palpitations. No fever. EXAM: Alert and oriented. Pulse 67, blood pressure 143/80, respirations 16, temperature 98.8, pulse ox 94% on room air. HEENT: Conjunctivae normal. Oral mucosa. NECK: No jugular venous distention. No lymph node enlargement. CARDIOVASCULAR: S1, S2. RESPIRATORY: Diminished breath sounds at the bases. Bilateral scattered rhonchi, no crackles. ABDOMEN: Soft, nontender. LEGS: No swelling. NERVOUS SYSTEM: No focal deficits. LAB STUDIES: WBC 2.2, hemoglobin 9.4. ASSESSMENT: 1. Acute myelogenous leukemia on chemotherapy. 2. Diabetes type 2. 3. Anemia, thrombocytopenia, bicytopenia. 4. History of bronchial asthma. 5. History hypomagnesemia. 6. Hypokalemia. 7. History of sepsis history. 8. History of fluid overload. 9. Hypertension. 10.History of chronic hypoxic respiratory failure on home O2. 11.Hyperlipidemia. 12.Obesity. 13.Gastroesophageal reflux disease. 14.Chronic low back pain. 15.DJD. 16.Hypothyroidism. 17.Anxiety, depression. RECOMMENDATIONS: Continue current medications, continue symptomatic. One unit transfusion. Monitor closely. Repeat labs. Prognosis guarded. Further recommendations to follow. MMODL / IJN: [id number] /
[2018-05-16] MEDS: LEVOTHYROXINE 125 MCG TAB PO SCH (05:59)
[2018-05-16 06:51] LABS: Glucose,Whole Blood 161 mg/dL (75-99)
[2018-05-16] MEDS: INSULIN ASPART 100 UNIT/ML 1 ML 10 ML VIAL SQ SCH ×4 (08:15→21:42)
[2018-05-16] MEDS: ATORVASTATIN 20 MG TAB PO SCH (08:16)
[2018-05-16] MEDS: ESCITALOPRAM 10 MG TAB PO SCH (08:16)
[2018-05-16] MEDS: SALT AND SODA MOUTHWASH 1,000 ML PO SCH ×3 (08:16→17:08)
[2018-05-16] MEDS: ACYCLOVIR 200 MG CAP PO SCH ×2 (08:16→21:41)
[2018-05-16] MEDS: PANTOPRAZOLE 40 MG TABLET PO SCH ×2 (08:16→17:43)
[2018-05-16] MEDS: prednisoLONE ACETATE 1% OPHTH DROPS 5 ML BTL BOTH EYES SCH ×4 (08:17→21:42)
[2018-05-16] MEDS: LORATADINE 10 MG TAB PO SCH (08:17)
[2018-05-16] MEDS: METOPROLOL TARTRATE 50 MG TAB PO SCH ×2 (08:17→21:41)
[2018-05-16] MEDS: FLUCONAZOLE 100 MG TAB PO SCH (08:17)
[2018-05-16] MEDS: FUROSEMIDE 20 MG TAB PO SCH ×2 (08:17→16:09)
[2018-05-16] MEDS: FLUTICASONE 50MCG/SPRAY NASAL 16GM EA NOSTRIL SCH (08:17)
[2018-05-16] MEDS: POTASSIUM CHLORIDE ER 20 MEQ TAB.ER PO SCH ×2 (08:17→21:41)
[2018-05-16] MEDS: SYMBICORT 160-4.5 MCG INHALER INHALATION SCH ×2 (08:27→19:08)
[2018-05-16 09:57] LABS: Anisocytosis Moderate; Basophils % (A) 0 %; Eosinophils % (A) 1 %; Hypochromasia Slight; Lymphocytes # (A) 0.2 k/uL (1.0-4.8); Lymphocytes % (A) 6 %; MCHC 32.4 g/dL (31.0-37.0); Macrocytosis Moderate; Mean Platelet Volume 9.1; Monocytes # (A) 0.1 k/uL (0-1.0); Monocytes % (A) 1 %; Neutrophils # (A) 2.9 k/uL (1.3-7.7); Neutrophils % (A) 91 %; RDW 20.5 % (11.5-15.5); WBC 3.2 k/uL (3.8-10.6)
[2018-05-16 09:58] LABS: HGB 6.8 gm/dL (11.4-16.0)
[2018-05-16 10:03] LABS: MCV 95.6 fL (80.0-100.0)
[2018-05-16 10:04] LABS: Platelet Count 78 k/uL (150-450)
[2018-05-16 10:10] LABS: ALT 32 U/L (9-52); AST 40 U/L (14-36); Albumin 3.8 g/dL (3.5-5.0); Alkaline Phosphatase 76 U/L (38-126); Anion Gap 9 mmol/L; Blood Urea Nitrogen 14 mg/dL (7-17); Calcium 9.1 mg/dL (8.4-10.2); Carbon Dioxide 24 mmol/L (22-30); Chloride 107 mmol/L (98-107); Glucose 190 mg/dL (74-99); Magnesium 1.7 mg/dL (1.6-2.3); Sodium 140 mmol/L (137-145); Total Bilirubin 1.1 mg/dL (0.2-1.3); Total Protein 6.6 g/dL (6.3-8.2); Uric Acid 5.6 mg/dL (3.7-7.4)
[2018-05-16] MEDS ORDERED: FUROSEMIDE 10 MG/ML 2 ML VIAL IV ONE (10:31)
[2018-05-16 11:06] LABS: Glucose,Whole Blood 151 mg/dL (75-99)
[2018-05-16] MEDS: CYANOCOBALAMIN 500 MCG TAB PO SCH (12:37)
[2018-05-16] MEDS: CALCIUM CARB-VIT D 500MG-200UN 1 EACH TAB PO SCH (12:37)
[2018-05-16] MEDS: FERROUS SULFATE 325 MG TAB PO SCH (12:37)
--- NOTE | 2018-05-16 12:56 | XR ---
EXAMINATION TYPE: XR chest 1V portable DATE OF EXAM: 05/16/2018 COMPARISON: Prior chest 04/10/2018 HISTORY: Dyspnea TECHNIQUE: Single frontal view of the chest is obtained. FINDINGS: Heart remains enlarged. Left-sided PICC line is stable, distal tip is at the level of the cavoatrial junction. No evident pneumothorax or pleural effusion. Pulmonary vascularity and светлана are stable. Patient is rotated. No airspace disease seen. IMPRESSION: Stable cardiomegaly.
[2018-05-16] MEDS: ONDANSETRON 16 MG in SODIUM CHLORIDE 0.9% 50 ML IVPB SCH (16:08)
[2018-05-16] MEDS: SODIUM CHLORIDE 0.9% 1,000 ML IV SCH (16:09)
[2018-05-16] MEDS: DEXAMETHASONE SOD PHOSPHATE 10 MG/ML 1 ML VIAL IV SCH (16:09)
[2018-05-16] MEDS: CYTARABINE IV SCH (17:06)
[2018-05-16] MEDS: SODIUM CHLORIDE 0.9% IV SCH (17:06)
[2018-05-16 17:20] LABS: Glucose,Whole Blood 151 mg/dL (75-99)
[2018-05-16] MEDS ORDERED: IPRATROPIUM-ALBUTEROL 3 ML NEB INHALATION SCH (20:00)
--- NOTE | 2018-05-16 20:01 | PN ---
PROGRESS NOTE DATE OF SERVICE: 05/16/2018. HISTORY: This 53-year-old woman was admitted with acute AML on chemotherapy, is being closely monitored. Patient has occasional cough. No chest pain. No palpitations. No fever. EXAM: Alert and oriented x3. Pulse is 57, blood pressure 140/84, respirations 16, temperature 97.8, pulse ox 94% on room air. HEENT: Conjunctivae normal. Oral mucosa moist. NECK: No jugular venous distention. No lymph enlargement. CARDIOVASCULAR: S1 and S2 muffled. LUNGS: Breath sounds diminished at the bases. Few scattered rhonchi. No crackles. ABDOMEN: Soft, nontender. No mass. LEGS: No edema. INSURANCE ACTUARY: No focal deficits. LABS: WBC 3.2, hemoglobin 6.8. ASSESSMENT: 1. Acute myeloid leukemia on chemotherapy. 2. Diabetes mellitus type 2. 3. Anemia, thrombocytopenia and bicytopenia. 4. History of bronchial asthma. 5. Hypomagnesemia history. 6. Hypokalemia. 7. History of sepsis. 8. History of fluid overload. 9. Hypertension. 10.History of chronic hypoxic respiratory failure on home O2. 11.Hyperlipidemia. 12.Obesity. 13.Gastroesophageal reflux disease. 14.Chronic low back pain. 15.History of degenerative joint disease. 16.Hypothyroidism. 17.History of anxiety and depression. RECOMMENDATIONS: Continue current medications, monitoring and symptomatic treatment. Otherwise at this time I would recommend continue the current medications, continue symptomatic treatment and continue with bronchodilators. Otherwise, recommend a small dose of Lasix after transfusion as well. Further recommendations to follow. MMODL / IJN: [id number] /
[2018-05-16 20:25] LABS: Glucose,Whole Blood 274 mg/dL (75-99)
[2018-05-16] MEDS: MONTELUKAST 10 MG TAB PO SCH (21:41)
[2018-05-16] MEDS: ZOLPIDEM 10 MG TAB PO SCH (23:18)
--- NOTE | 2018-05-17 00:10 | P.PN ---
Subjective Progress Note Date: 05/16/18 the patient complained of some mild shortness of breath today. She is on day #5 of her high-dose cytarabine regimen. no history of fever/chills/nausea/ vomiting/cough/obvious bleeding. Appetite is mildly diminished. She complains of increased fatigue. Objective - Vital Signs Vital signs: Vital Signs Temp 98.2 F 05/16/18 23:51 Pulse 69 05/16/18 23:51 Resp 17 05/16/18 23:51 BP 135/75 05/16/18 23:51 Pulse Ox 95 05/16/18 23:51 Intake & Output 05/16/18 05/16/18 05/17/18 06:59 18:59 06:59 Intake Total 730 790 Balance 730 790 Intake: Intake, IV Titration 480 480 Amount Sodium Chloride 0.9% 1, 480 480 000 ml @ 60 mls/hr IV . [id number] STEPHEN Rx#:[id number] Oral 250 Blood Product 310 Rc Irr As1 Unit 310 [id number] Other: Voiding Method Toilet # Voids 2 3 - Constitutional General appearance: Present: no acute distress - EENT Eyes: Present: EOMI ENT: Present: hearing grossly normal, normal oropharynx - Respiratory Respiratory: bilateral: CTA - Cardiovascular Rhythm: regular Heart sounds: normal: S1, S2 - Gastrointestinal General gastrointestinal: Present: soft - Neurologic Neurologic: Present: CNII-XII intact - Musculoskeletal Musculoskeletal: Present: generalized weakness, strength equal bilaterally - Psychiatric Psychiatric: Present: A&O x's 3, appropriate affect - Labs CBC & Chem 7: 05/16/18 09:06 05/16/18 09:06 Labs: Abnormal Lab Results - Last 24 Hours (Table) 05/15/18 05/16/18 05/16/18 Range/Units 08:29 06:49 09:06 WBC 3.2 L (3.8-10.6) k/uL RBC 2.20 L (3.80-5.40) m/uL Hgb 6.8 L* (11.4-16.0) gm/dL Hct 21.0 L (34.0-46.0) % RDW 20.5 H (11.5-15.5) % Plt Count 78 L (150-450) k/uL Lymphocytes # 0.2 L (1.0-4.8) k/uL Glucose (74-99) mg/dL POC Glucose (mg/dL) 161 H (75-99) mg/dL AST (14-36) U/L Crossmatch See Detail 05/16/18 05/16/18 05/16/18 Range/Units 09:06 11:04 17:18 WBC (3.8-10.6) k/uL RBC (3.80-5.40) m/uL Hgb (11.4-16.0) gm/dL Hct (34.0-46.0) % RDW (11.5-15.5) % Plt Count (150-450) k/uL Lymphocytes # (1.0-4.8) k/uL Glucose 190 H (74-99) mg/dL POC Glucose (mg/dL) 151 H 151 H (75-99) mg/dL AST 40 H (14-36) U/L Crossmatch 05/16/18 Range/Units 20:12 WBC (3.8-10.6) k/uL RBC (3.80-5.40) m/uL Hgb (11.4-16.0) gm/dL Hct (34.0-46.0) % RDW (11.5-15.5) % Plt Count (150-450) k/uL Lymphocytes # (1.0-4.8) k/uL Glucose (74-99) mg/dL POC Glucose (mg/dL) 274 H (75-99) mg/dL AST (14-36) U/L Crossmatch Assessment and Plan (1) Acute myeloid leukemia Narrative/Plan: the patient is on day #5 of consolidation with high-dose cytarabine. She has tolerated treatment well so far. She has developed some progressive fatigue and hematologic toxicity, which are in the expected range. Continue treatment per protocol. Continue monitoring with clinical exams, and labs, which have been ordered Current Visit: Yes Status: Acute Priority: High Code(s): C92.00 - ACUTE MYELOBLASTIC LEUKEMIA, NOT HAVING ACHIEVED REMISSION SNOMED Code(s): 93220155 (2) Antineoplastic chemotherapy induced anemia Narrative/Plan: the patient is status post 1 unit of blood yesterday. Hemoglobin today was 6.8. She will receive an additional unit. Given mild shortness of breath, she will receive Lasix after the additional unit. Current Visit: No Status: Chronic Priority: Medium Code(s): D64.81 - ANEMIA DUE TO ANTINEOPLASTIC CHEMOTHERAPY; T45.1X5A - ADVERSE EFFECT OF ANTINEOPLASTIC AND IMMUNOSUP DRUGS, INIT SNOMED Code(s): 879920144 (3) Dyspnea Narrative/Plan: this is overall quite mild. Chest examination was fairly unremarkable. Chest x-ray will be checked to rule out any evidence of fluid overload. As noted, the patient will receive an additional dose of Lasix IV, with the unit of blood to be transfused today. Current Visit: Yes Status: Acute Code(s): R06.00 - DYSPNEA, UNSPECIFIED SNOMED Code(s): 370041329
[2018-05-17] MEDS: ONDANSETRON 4 MG/2 ML VIAL IVP PRN (05:07)
[2018-05-17] MEDS: SODIUM CHLORIDE 0.9% 1,000 ML IV SCH (05:09)
[2018-05-17] MEDS: SODIUM CHLORIDE 0.9% IV SCH (05:10)
[2018-05-17] MEDS: CYTARABINE IV SCH (05:10)
[2018-05-17] MEDS: LEVOTHYROXINE 125 MCG TAB PO SCH (06:58)
[2018-05-17 07:33] LABS: Glucose,Whole Blood 216 mg/dL (75-99)
[2018-05-17 07:36] LABS: Anisocytosis Slight; Basophils % (A) 0 %; Eosinophils % (A) 1 %; HCT 22.5 % (34.0-46.0); HGB 7.5 gm/dL (11.4-16.0); Lymphocytes # (A) 0.1 k/uL (1.0-4.8); Lymphocytes % (A) 4 %; MCH 30.7 pg (25.0-35.0); MCHC 33.2 g/dL (31.0-37.0); MCV 92.5 fL (80.0-100.0); Macrocytosis Slight; Mean Platelet Volume 8.7; Monocytes # (A) 0.1 k/uL (0-1.0); Monocytes % (A) 3 %; Neutrophils # (A) 2.1 k/uL (1.3-7.7); Neutrophils % (A) 92 %; RBC 2.43 m/uL (3.80-5.40); RDW 19.8 % (11.5-15.5); WBC 2.3 k/uL (3.8-10.6)
[2018-05-17 07:48] LABS: Platelet Count 63 k/uL (150-450)
[2018-05-17 07:53] LABS: ALT 33 U/L (9-52); AST 30 U/L (14-36); Albumin 3.8 g/dL (3.5-5.0); Alkaline Phosphatase 80 U/L (38-126); Anion Gap 11 mmol/L; Blood Urea Nitrogen 16 mg/dL (7-17); Calcium 9.1 mg/dL (8.4-10.2); Carbon Dioxide 23 mmol/L (22-30); Chloride 104 mmol/L (98-107); Glucose 209 mg/dL (74-99); Magnesium 1.6 mg/dL (1.6-2.3); Potassium 4.3 mmol/L (3.5-5.1); Sodium 138 mmol/L (137-145); Total Bilirubin 1.1 mg/dL (0.2-1.3); Total Protein 6.5 g/dL (6.3-8.2); Uric Acid 5.9 mg/dL (3.7-7.4)
[2018-05-17] MEDS: INSULIN ASPART 100 UNIT/ML 1 ML 10 ML VIAL SQ SCH (08:07)
[2018-05-17] MEDS: prednisoLONE ACETATE 1% OPHTH DROPS 5 ML BTL BOTH EYES SCH (08:07)
[2018-05-17] MEDS: FLUTICASONE 50MCG/SPRAY NASAL 16GM EA NOSTRIL SCH (08:07)
[2018-05-17] MEDS: PANTOPRAZOLE 40 MG TABLET PO SCH (08:08)
[2018-05-17] MEDS: FLUCONAZOLE 100 MG TAB PO SCH (08:08)
[2018-05-17] MEDS: ATORVASTATIN 20 MG TAB PO SCH (08:08)
[2018-05-17] MEDS: LORATADINE 10 MG TAB PO SCH (08:08)
[2018-05-17] MEDS: POTASSIUM CHLORIDE ER 20 MEQ TAB.ER PO SCH (08:08)
[2018-05-17] MEDS: ACYCLOVIR 200 MG CAP PO SCH (08:08)
[2018-05-17] MEDS: METOPROLOL TARTRATE 50 MG TAB PO SCH (08:08)
[2018-05-17] MEDS: FUROSEMIDE 20 MG TAB PO SCH (08:08)
[2018-05-17] MEDS: ESCITALOPRAM 10 MG TAB PO SCH (08:08)
[2018-05-17] MEDS: SYMBICORT 160-4.5 MCG INHALER INHALATION SCH (08:26)
[2018-05-17 08:37] VITALS: BP 125/66; PULSE 60; RESP 18; TEMP 97.9
--- NOTE | 2018-05-17 11:32 | P.DS ---
Providers Date of admission: 05/12/18 08:50 Expected date of discharge: 05/17/18 Attending physician: Tung Atkinson Consults: 05/12/18 11:36 Consult Physician Stat Consulting Provider: Naveen Sharma Consult Reason/Comments: Medical Management Do you want consulting provider notified?: Already Contacted Primary care physician: Nikki Soto - Discharge Diagnosis(es) (1) Acute myeloid leukemia Current Visit: Yes Status: Acute Priority: High (2) Antineoplastic chemotherapy induced anemia Current Visit: No Status: Chronic Priority: Medium (3) Dyspnea Current Visit: Yes Status: Acute Priority: Medium Hospital Course: The patient is a 53-year-old white female, diagnosed with acute myeloid leukemia in 11/08. She underwent successful induction therapy with the 7+3 regimen. She'll not felt to be an upfront transplant candidate due to favorable cytogenetics (inversion 16) she has therefore been receiving consolidation with high-dose cytarabine. She was admitted for her third cycle of consolidation. The patient received treatment for protocol. She was monitored closely with clinical exams and labs. She had no major untoward subjective side effects. She is also followed closely by internal medicine for other medical issues, which remained stable. The patient did develop anemia related to chemotherapy in required 2 units of PRBC. She also had an episode of transient shortness of breath, with a chest x-ray being negative. This resolved with a dose of Lasix. After completion of her chemotherapy, as the patient was clinically stable with counts in a safe range, it was decided to discharge her home. Pertinent Studies: Chest x-ray Procedures: High dose infusional chemotherapy Blood product transfusion Patient Condition at Discharge: Fair Plan - Discharge Summary Discharge Rx Participant: No New Discharge Prescriptions: New Fluconazole [Diflucan] 100 mg PO DAILY #10 tab Acyclovir 400 mg PO BID #40 tablet No Action Omeprazole [PriLOSEC] 20 mg PO AC-BID Ferrous Sulfate [Iron (65 MG Elemental)] 325 mg PO DAILY Escitalopram Oxalate [Lexapro] 30 mg PO QAM Zolpidem [Ambien] 10 mg PO HS Loratadine [Claritin] 10 mg PO DAILY Fluticasone Nasal [place] [Flonase Nasal [place]] 1 spray EA NOSTRIL DAILY Atorvastatin [Lipitor] 20 mg PO DAILY Furosemide [Lasix] 20 mg PO BID Levothyroxine Sodium [Synthroid] 125 mcg PO DAILY Potassium Chloride [Klor-Con 20] 20 meq PO BID Montelukast [Singulair] 10 mg PO HS Metoprolol Tartrate [Lopressor] 50 mg PO BID Calcium Carbonate/Vitamin D3 [Calcium 600-Vit D3 400 Caplet] 1 tab PO DAILY Ipratropium-Albuterol Nebulize [Duoneb 0.5 mg-3 mg/3 ml Soln] 3 ml INHALATION RT-QID PRN PRN Reason: Shortness Of Breath Budesonide/Formoterol Fumarate [Symbicort 160-4.5 Mcg Inhaler] 2 puff INHALATION RT-BID Albuterol Inhaler [Ventolin Hfa Inhaler] 2 puff INHALATION RT-QID PRN PRN Reason: Shortness Of Breath Cyanocobalamin (Vitamin B-12) [Vitamin B-12] 1,000 mcg PO DAILY 90 Days #90 tablet Ondansetron [Zofran] 4 mg PO Q6HR PRN #45 tab PRN Reason: Nausea Acyclovir 400 mg PO BID #40 tablet Fluconazole [Diflucan] 100 mg PO DAILY #10 tab Ondansetron Odt [Zofran Odt] 4 mg PO Q8HR PRN #30 tab PRN Reason: Nausea And Vomiting Discharge Medication List Escitalopram Oxalate [Lexapro] 30 mg PO QAM 05/04/16 [History] Ferrous Sulfate [Iron (65 MG Elemental)] 325 mg PO DAILY 05/04/16 [History] Omeprazole [PriLOSEC] 20 mg PO AC-BID 05/04/16 [History] Atorvastatin [Lipitor] 20 mg PO DAILY 10/26/16 [History] Fluticasone Nasal [place] [Flonase Nasal [place]] 1 spray EA NOSTRIL DAILY 10/26/16 [History] Loratadine [Claritin] 10 mg PO DAILY 10/26/16 [History] Zolpidem [Ambien] 10 mg PO HS 10/26/16 [History] Furosemide [Lasix] 20 mg PO BID 08/19/17 [History] Levothyroxine Sodium [Synthroid] 125 mcg PO DAILY 08/19/17 [History] Potassium Chloride [Klor-Con 20] 20 meq PO BID 08/19/17 [History] Calcium Carbonate/Vitamin D3 [Calcium 600-Vit D3 400 Caplet] 1 tab PO DAILY [History] Metoprolol Tartrate [Lopressor] 50 mg PO BID 10/08/17 [History] Montelukast [Singulair] 10 mg PO HS 10/08/17 [History] Albuterol Inhaler [Ventolin Hfa Inhaler] 2 puff INHALATION RT-QID PRN 10/29/17 [ History] Budesonide/Formoterol Fumarate [Symbicort 160-4.5 Mcg Inhaler] 2 puff INHALATION RT-BID 10/29/17 [History] Ipratropium-Albuterol Nebulize [Duoneb 0.5 mg-3 mg/3 ml Soln] 3 ml INHALATION RT -QID PRN 10/29/17 [History] Cyanocobalamin (Vitamin B-12) [Vitamin B-12] 1,000 mcg PO DAILY 90 Days #90 tablet 01/08/18 [Rx] Ondansetron [Zofran] 4 mg PO Q6HR PRN #45 tab 01/24/18 [Rx] Acyclovir 400 mg PO BID #40 tablet 03/14/18 [Rx] Fluconazole [Diflucan] 100 mg PO DAILY #10 tab 03/14/18 [Rx] Ondansetron Odt [Zofran Odt] 4 mg PO Q8HR PRN #30 tab 03/15/18 [Rx] Acyclovir 400 mg PO BID #40 tablet 05/17/18 [Rx] Fluconazole [Diflucan] 100 mg PO DAILY #10 tab 05/17/18 [Rx] Follow up Appointment(s)/Referral(s): Tung Atkinson MD [STAFF PHYSICIAN] - (Pt to call office on 05/19/18 to come in for [facility]) Ambulatory/Diagnostic Orders: Ambulatory Miscellaneous Order [MISC.AMB] Location: None Selected Patient Instructions/Handouts: Acyclovir (By mouth), Fluconazole (By mouth), Acute Myeloid Leukemia (DC), Dyspnea (DC) Discharge Disposition: HOME SELF-CARE
--- NOTE | 2018-05-17 22:47 | PN ---
PROGRESS NOTE DATE OF SERVICE: 05/17/2018 HISTORY: This 53-year-old woman was admitted with acute myeloid leukemia, on chemotherapy, improved significantly. No chest pain. No palpitations. No fever. EXAM: Alert, oriented x3. Pulse 55, blood pressure 139/70, respirations 16, temperature 97.2, pulse ox 97% on room air. HEENT: Conjunctivae normal. Oral mucosa moist. NECK: No jugular venous distention. No lymph node enlargement. CARDIOVASCULAR: S1 and S2 muffled. LUNGS: Breath sounds diminished at the bases. Few scattered rhonchi and crackles. ABDOMEN: Soft, nontender. EXTREMITIES: Legs reveal no edema, no swelling. LAB STUDIES: WBC 2.9, hemoglobin 7.5. ASSESSMENT: 1. Acute myeloid leukemia on chemotherapy. 2. Diabetes type 2. 3. Anemia, thrombocytopenia, bicytopenia. 4. History of bronchial asthma. 5. Hypomagnesemia history. 6. Hypokalemia. 7. History of sepsis. 8. History of fluid overload. 9. Hypertension. 10.Chronic hypoxic respiratory failure, on home O2. 11.Hyperlipidemia. 12.Obesity. 13.Gastroesophageal reflux disease. 14.Chronic low back pain. 15.History of degenerative joint disease. 16.Hypothyroidism. 17.Anxiety and depression. RECOMMENDATIONS: Continue current medications, continue with monitoring and symptomatic treatment. Otherwise, continue with home medications. The rest of the recommendations per Dr. Allen. The patient will be discharged today by Dr. Allen with further plans to follow up in the outpatient setting. MMJULIO CL / RADHAN: [id number] /
== END 2018-05-17 12:10 | disposition home or self-care (01) | DRG 838 ==
LOC: 3NMEDONC 08:50
PROVIDERS: ADMIT Internal Medicine Hematology & Oncology; ATTEND Internal Medicine Hematology & Oncology
PROC: 02HV33Z Insertion of Infusion Device into Superior Vena Cava, Percutaneous Approach (ICD-10-PCS; principal; 2018-05-12 11:16)
PROC: 3E04305 Introduction of Other Antineoplastic into Central Vein, Percutaneous Approach (ICD-10-PCS; 2018-05-12 11:16)
DX: Z51.11 Encounter for antineoplastic chemotherapy (principal); Z68.42 Body mass index [BMI] 45.0-49.9, adult; C92.00 Acute myeloblastic leukemia, not having achieved remission; J96.11 Chronic respiratory failure with hypoxia; D64.81 Anemia due to antineoplastic chemotherapy; E03.9 Hypothyroidism, unspecified; E11.9 Type 2 diabetes mellitus without complications; E66.9 Obesity, unspecified; E78.5 Hyperlipidemia, unspecified; E83.42 Hypomagnesemia; E87.6 Hypokalemia; F32.9 Major depressive disorder, single episode, unspecified; F41.9 Anxiety disorder, unspecified; G89.29 Other chronic pain; I10 Essential (primary) hypertension; J45.909 Unspecified asthma, uncomplicated; K21.9 Gastro-esophageal reflux disease without esophagitis; K76.0 Fatty (change of) liver, not elsewhere classified; M19.90 Unspecified osteoarthritis, unspecified site; T45.1X5A Adverse effect of antineoplastic and immunosuppressive drugs, initial encounter; Z79.51 Long term (current) use of inhaled steroids; Z79.899 Other long term (current) drug therapy; Z98.42 Cataract extraction status, left eye; Z98.41 Cataract extraction status, right eye; Z96.1 Presence of intraocular lens; Z99.81 Dependence on supplemental oxygen; M54.5 Low back pain; Z79.890 Hormone replacement therapy; Z88.0 Allergy status to penicillin; E79.0 Hyperuricemia without signs of inflammatory arthritis and tophaceous disease
CPT/HCPCS: 36569; 71045; 76937; 77001; 80053; 83036; 83735; 84550; 85025; 86850; 86870; 86880; 86900; 86901; 86902; 86920; 94640

== ENCOUNTER 2018-05-30 08:21 | Inpatient (IN) | payer OTHER ==
[2018-05-30] MEDS ORDERED: ACETAMINOPHEN IV (For NPO) 1,000 MG in EMPTY BAG 1 BAG IVPB STA (08:44)
[2018-05-30] MEDS ORDERED: CEFEPIME 2 GM in SODIUM CHLORIDE 0.9% 50 ML IVPB STA (08:49)
[2018-05-30] MEDS ORDERED: FLUCONAZOLE IN NACL,ISO-OSM 400 MG in SALINE 1 200ML.BAG IVPB STA (08:50)
--- NOTE | 2018-05-30 08:56 | ED ---
Fever HPI - General Chief Complaint: Fever Stated Complaint: sorethroat Time Seen by Provider: 05/30/18 08:25 Source: patient, RN notes reviewed Mode of arrival: ambulatory Limitations: no limitations - History of Present Illness Initial Comments: This is a 53-year-old female who presents to the emergency department with past medical history of AML for which she is receiving chemotherapy. Patient was told to come here because she has a fever and her white count is extremely low per patient states she recently received a blood transfusion as well as platelet transfusions. Patient states today she is complaining of a severe sore throat and is nauseated and vomiting. Patient states she's unable to take her pills because her throat so sore. Patient denies any cough patient denies any shortness of breath or difficulty breathing. Patient denies any abdominal pain. Patient denies any diarrhea. Patient denies any dysuria hematuria urinary frequency. Patient denies any areas of erythema redness or swelling. - Related Data Home Medications Medication Instructions Recorded Confirmed Escitalopram Oxalate [Lexapro] 30 mg PO QAM 05/04/16 05/30/18 Ferrous Sulfate [Iron (65 MG 325 mg PO DAILY 05/04/16 05/30/18 Elemental)] Omeprazole [PriLOSEC] 20 mg PO AC-BID 05/04/16 05/30/18 Atorvastatin [Lipitor] 20 mg PO DAILY 10/26/16 05/30/18 Fluticasone Nasal [place] [Flonase 1 spray EA NOSTRIL DAILY 10/26/16 05/30/18 Nasal [place]] Loratadine [Claritin] 10 mg PO DAILY 10/26/16 05/30/18 Zolpidem [Ambien] 10 mg PO HS 10/26/16 05/30/18 Furosemide [Lasix] 20 mg PO BID 08/19/17 05/30/18 Levothyroxine Sodium [Synthroid] 125 mcg PO DAILY 08/19/17 05/30/18 Potassium Chloride [Klor-Con 20] 20 meq PO BID 08/19/17 05/30/18 Calcium Carbonate/Vitamin D3 1 tab PO DAILY 10/08/17 05/30/18 [Calcium 600-Vit D3 400 Caplet] Metoprolol Tartrate [Lopressor] 50 mg PO BID 10/08/17 05/30/18 Montelukast [Singulair] 10 mg PO HS 10/08/17 05/30/18 Albuterol Inhaler [Ventolin Hfa 2 puff INHALATION RT-QID PRN 10/29/17 05/30/18 Inhaler] Budesonide/Formoterol Fumarate 2 puff INHALATION RT-BID 10/29/17 05/30/18 [Symbicort 160-4.5 Mcg Inhaler] Ipratropium-Albuterol Nebulize 3 ml INHALATION RT-QID PRN 10/29/17 05/30/18 [Duoneb 0.5 mg-3 mg/3 ml Soln] Previous Rx's Medication Instructions Recorded Cyanocobalamin (Vitamin B-12) 1,000 mcg PO DAILY 90 Days #90 01/08/18 [Vitamin B-12] tablet Ondansetron [Zofran] 4 mg PO Q6HR PRN #45 tab 01/24/18 Acyclovir 400 mg PO BID #40 tablet 05/17/18 Fluconazole [Diflucan] 100 mg PO DAILY #10 tab 05/17/18 Allergies Allergy/AdvReac Type Severity Reaction Status Date / Time Penicillins Allergy Rash/Hives Verified 05/30/18 08:33 Review of Systems ROS Statement: Those systems with pertinent positive or pertinent negative responses have been documented in the HPI. ROS Other: All systems not noted in ROS Statement are negative. Past Medical History Past Medical History: Asthma, Blood Disorder, Cancer, Diabetes Mellitus, GERD/ Reflux, Hyperlipidemia, Hypertension, Respiratory Disorder, Thyroid Disorder Additional Past Medical History / Comment(s): AML,neutropenic sepsis/pneumonia/ respiratory failure and was intubated, chronic bronchial asthma, NIDDM type II, chronic back pain, neuropathy L hand, L hand 2nd and 3rd fingers are "locking up " at times, bilateral carpal tunnel, hypothyroid, iron deficiency anemia, insomnia, sinus problems;diverticulitis. History of Any Multi-Drug Resistant Organisms: None Reported Past Surgical History: Adenoidectomy, Heart Catheterization, Tonsillectomy, Tubal Ligation Additional Past Surgical History / Comment(s): BMAs, bronchoscopy with washing, picc lines, carpel tunnel right wrist, bilateral cataract removal, bilateral laser eye surgery/lens implants, colonoscopy, epidural injections. Past Anesthesia/Blood Transfusion Reactions: No Reported Reaction Additional Past Anesthesia/Blood Transfusion Reaction / Comment(s): Pt has received platelets and blood transfusions without reaction. Past Psychological History: No Psychological Hx Reported Smoking Status: Never smoker Past Alcohol Use History: None Reported Past Drug Use History: None Reported - Past Family History Mother Family Medical History: Cancer Father Family Medical History: No Reported History Additional Family Medical History / Comment(s): Father is living. General Exam - General Exam Comments Initial Comments: GENERAL: Patient is well-developed and well-nourished. Patient is nontoxic and well- hydrated and is in mild distress. ENT: Neck is soft and supple. No significant lymphadenopathy is noted. Patient's pharynx is extremely erythematous with quite a few white plaques. Typical of thrush.. Moist mucous membranes. Neck has full range of motion without eliciting any pain. EYES: The sclera were anicteric and conjunctiva were pink and moist. Extraocular movements were intact and pupils were equal round and reactive to light. Eyelids were unremarkable. PULMONARY: Unlabored respirations. Good breath sounds bilaterally. No audible rales rhonchi or wheezing was noted. CARDIOVASCULAR: Patient is tachycardic at about 100 beats a minute. ABDOMEN: Soft and nontender with normal bowel sounds. No palpable organomegaly was noted. There is no palpable pulsatile mass. SKIN: Skin is clear with no lesions or rashes and otherwise unremarkable. NEUROLOGIC: Patient is alert and oriented x3. Cranial nerves II through XII are grossly intact. Motor and sensory are also intact. Normal speech, volume and content. Symmetrical smile. MUSCULOSKELETAL: Normal extremities with adequate strength and full range of motion. No lower extremity swelling or edema. No calf tenderness. LYMPHATICS: No significant lymphadenopathy is noted PSYCHIATRIC: Normal psychiatric evaluation. Normal interpersonal interactions appears functionally intact in deals appropriately with others. No signs of depression. No signs of anxiety. Limitations: no limitations Course Vital Signs 05/30/18 05/30/18 08:23 10:30 Temperature 100.8 F H 100.8 F H Pulse Rate 110 H 96 Respiratory 22 20 Rate Blood Pressure 140/76 113/70 O2 Sat by Pulse 98 95 Oximetry Medical Decision Making - Medical Decision Making EKG shows sinus tachycardia at 103 bpm [place] interval 228 QRSs 80 QT interval 320 QTC is 429. Patient's EKG shows no ST segment elevation or depression or T wave abnormalities are noted. Chest x-ray showed no acute abnormality. I started the patient on cefepime and vancomycin and Diflucan. I ordered 1 unit of platelets and 1 unit of packed red blood cells. I spoke with Dr. Allen he agreed with these orders once the patient admitted I spoke with because he accepted the admission I wrote admitting orders. - Lab Data Result diagrams: 05/30/18 10:20 05/30/18 09:05 Lab Results 05/30/18 05/30/18 05/30/18 Range/Units 09:05 09:05 09:05 WBC (3.8-10.6) k/uL RBC (3.80-5.40) m/uL Hgb (11.4-16.0) gm/dL Hct (34.0-46.0) % MCV (80.0-100.0) fL MCH (25.0-35.0) pg MCHC (31.0-37.0) g/dL RDW (11.5-15.5) % Plt Count (150-450) k/uL Manual Slide Review Anisocytosis PT (9.0-12.0) sec INR (<1.2) APTT (22.0-30.0) sec Sodium 139 (137-145) mmol/L Potassium 3.8 (3.5-5.1) mmol/L Chloride 99 (98-107) mmol/L Carbon Dioxide 27 (22-30) mmol/L Anion Gap 13 mmol/L BUN 10 (7-17) mg/dL Creatinine 0.63 (0.52-1.04) mg/dL Est GFR (CKD-EPI)AfAm >90 (>60 ml/min/1.73 sqM) Est GFR (CKD-EPI)NonAf >90 (>60 ml/min/1.73 sqM) Glucose 188 H (74-99) mg/dL Plasma Lactic Acid Bereket 2.6 H* (0.7-2.0) mmol/L Calcium 9.5 (8.4-10.2) mg/dL Total Bilirubin 2.1 H (0.2-1.3) mg/dL AST 26 (14-36) U/L ALT 34 (9-52) U/L Alkaline Phosphatase 116 (38-126) U/L Total Protein 7.1 (6.3-8.2) g/dL Albumin 4.1 (3.5-5.0) g/dL Urine Color Urine Appearance (Clear) Urine pH (5.0-8.0) Ur Specific [place] (1.001-1.035) Urine Protein (Negative) Urine Glucose (UA) (Negative) Urine Ketones (Negative) Urine Blood (Negative) Urine Nitrite (Negative) Urine Bilirubin (Negative) Urine Urobilinogen (<2.0) mg/dL Ur Leukocyte Esterase (Negative) Urine RBC (0-5) /hpf Urine WBC (0-5) /hpf Ur Squamous Epith Cells (0-4) /hpf Urine Bacteria (None) /hpf Hyaline Casts (0-2) /lpf Urine Mucus (None) /hpf Influenza Type A RNA Not Detected (Not Detectd) Influenza Type B (PCR) Not Detected (Not Detectd) Group A Strep Rapid (Negative) 05/30/18 05/30/18 05/30/18 Range/Units 09:05 09:05 09:40 WBC (3.8-10.6) k/uL RBC (3.80-5.40) m/uL Hgb (11.4-16.0) gm/dL Hct (34.0-46.0) % MCV (80.0-100.0) fL MCH (25.0-35.0) pg MCHC (31.0-37.0) g/dL RDW (11.5-15.5) % Plt Count (150-450) k/uL Manual Slide Review Anisocytosis PT 10.9 (9.0-12.0) sec INR 1.0 (<1.2) APTT 19.6 L (22.0-30.0) sec Sodium (137-145) mmol/L Potassium (3.5-5.1) mmol/L Chloride (98-107) mmol/L Carbon Dioxide (22-30) mmol/L Anion Gap mmol/L BUN (7-17) mg/dL Creatinine (0.52-1.04) mg/dL Est GFR (CKD-EPI)AfAm (>60 ml/min/1.73 sqM) Est GFR (CKD-EPI)NonAf (>60 ml/min/1.73 sqM) Glucose (74-99) mg/dL Plasma Lactic Acid Bereket (0.7-2.0) mmol/L Calcium (8.4-10.2) mg/dL Total Bilirubin (0.2-1.3) mg/dL AST (14-36) U/L ALT (9-52) U/L Alkaline Phosphatase (38-126) U/L Total Protein (6.3-8.2) g/dL Albumin (3.5-5.0) g/dL Urine Color Yellow Urine Appearance Clear (Clear) Urine pH 7.0 (5.0-8.0) Ur Specific [place] 1.018 (1.001-1.035) Urine Protein 1+ H (Negative) Urine Glucose (UA) Negative (Negative) Urine Ketones Negative (Negative) Urine Blood Negative (Negative) Urine Nitrite Negative (Negative) Urine Bilirubin Negative (Negative) Urine Urobilinogen 4.0 (<2.0) mg/dL Ur Leukocyte Esterase Negative (Negative) Urine RBC 1 (0-5) /hpf Urine WBC 1 (0-5) /hpf Ur Squamous Epith Cells 5 H (0-4) /hpf Urine Bacteria Occasional H (None) /hpf Hyaline Casts 4 H (0-2) /lpf Urine Mucus Rare H (None) /hpf Influenza Type A RNA (Not Detectd) Influenza Type B (PCR) (Not Detectd) Group A Strep Rapid Negative (Negative) 05/30/18 Range/Units 10:20 WBC 0.1 L* (3.8-10.6) k/uL RBC 2.07 L (3.80-5.40) m/uL Hgb 6.3 L* (11.4-16.0) gm/dL Hct 18.3 L* (34.0-46.0) % MCV 88.1 (80.0-100.0) fL MCH 30.4 (25.0-35.0) pg MCHC 34.5 (31.0-37.0) g/dL RDW 16.8 H (11.5-15.5) % Plt Count 8 L* D (150-450) k/uL Manual Slide Review Performed Anisocytosis Slight PT (9.0-12.0) sec INR (<1.2) APTT (22.0-30.0) sec Sodium (137-145) mmol/L Potassium (3.5-5.1) mmol/L Chloride (98-107) mmol/L Carbon Dioxide (22-30) mmol/L Anion Gap mmol/L BUN (7-17) mg/dL Creatinine (0.52-1.04) mg/dL Est GFR (CKD-EPI)AfAm (>60 ml/min/1.73 sqM) Est GFR (CKD-EPI)NonAf (>60 ml/min/1.73 sqM) Glucose (74-99) mg/dL Plasma Lactic Acid Bereket (0.7-2.0) mmol/L Calcium (8.4-10.2) mg/dL Total Bilirubin (0.2-1.3) mg/dL AST (14-36) U/L ALT (9-52) U/L Alkaline Phosphatase (38-126) U/L Total Protein (6.3-8.2) g/dL Albumin (3.5-5.0) g/dL Urine Color Urine Appearance (Clear) Urine pH (5.0-8.0) Ur Specific [place] (1.001-1.035) Urine Protein (Negative) Urine Glucose (UA) (Negative) Urine Ketones (Negative) Urine Blood (Negative) Urine Nitrite (Negative) Urine Bilirubin (Negative) Urine Urobilinogen (<2.0) mg/dL Ur Leukocyte Esterase (Negative) Urine RBC (0-5) /hpf Urine WBC (0-5) /hpf Ur Squamous Epith Cells (0-4) /hpf Urine Bacteria (None) /hpf Hyaline Casts (0-2) /lpf Urine Mucus (None) /hpf Influenza Type A RNA (Not Detectd) Influenza Type B (PCR) (Not Detectd) Group A Strep Rapid (Negative) Critical Care Time Critical Care Time: Yes Total Critical Care Time: 35 Disposition Clinical Impression: Febrile neutropenia, Thrush of mouth and esophagus, Sepsis Disposition: ADMITTED IP TO THIS HOSP Referrals: Nikki Soto MD [Primary Care Provider] - 1-2 days Time of Disposition: 12:05
[2018-05-30] MEDS ORDERED: IBUPROFEN IV 600 MG in SODIUM CHLORIDE 0.9% 250 ML IV ONE (09:00)
[2018-05-30] MEDS: SODIUM CHLORIDE 0.9% 500 ML 500 ML IV SCH ×4 (09:06→10:39)
[2018-05-30 09:53] LABS: ALT 34 U/L (9-52); AST 26 U/L (14-36); Albumin 4.1 g/dL (3.5-5.0); Alkaline Phosphatase 116 U/L (38-126); Anion Gap 13 mmol/L; Blood Urea Nitrogen 10 mg/dL (7-17); Calcium 9.5 mg/dL (8.4-10.2); Carbon Dioxide 27 mmol/L (22-30); Chloride 99 mmol/L (98-107); Glucose 188 mg/dL (74-99); Potassium 3.8 mmol/L (3.5-5.1); Sodium 139 mmol/L (137-145); Total Bilirubin 2.1 mg/dL (0.2-1.3); Total Protein 7.1 g/dL (6.3-8.2)
[2018-05-30 10:00] LABS: Prothrombin Time 10.9 sec (9.0-12.0)
[2018-05-30 10:17] LABS: Partial Thromboplastin Time 19.6 sec (22.0-30.0)
--- NOTE | 2018-05-30 10:17 | XR ---
EXAMINATION TYPE: XR chest 2V DATE OF EXAM: 05/30/2018 COMPARISON: 05/16/2018 TECHNIQUE: PA and lateral views submitted. HISTORY: Fever FINDINGS: Left-sided PICC line noted. Heart is prominent. Coarsened interstitium with no pleural effusion or pn eumothorax. Biapical pleural thickening. No consolidative pneumonia. Linear changes right hilum likel y related to scar or atelectasis. Hypertrophic and degenerative change of the spine. IMPRESSION: 1. Right perihilar linear changes more typical of atelectasis or scar rather than pneumonia. Correlat e clinically
[2018-05-30 10:26] LABS: Appearance,Urine Clear (Clear); Bacteria,Urine Occasional /hpf; Bilirubin,Urine Negative (Negative); Blood,Urine Negative (Negative); Color,Urine Yellow; Glucose,Urine (UA) Negative (Negative); Hyaline Casts,Urine 4 /lpf (0-2); Ketones,Urine Negative (Negative); Leukocyte Esterase,Urine Negative (Negative); Mucus,Urine Rare /hpf; Nitrite,Urine Negative (Negative); Protein,Urine 1+ (Negative); RBC,Urine 1 /hpf (0-5); Specific Gravity,Urine 1.018 (1.001-1.035); Squamous Epithelial Cell,Urine 5 /hpf (0-4); WBC,Urine 1 /hpf (0-5)
[2018-05-30 10:47] LABS: Anisocytosis Slight; MCH 30.4 pg (25.0-35.0); MCHC 34.5 g/dL (31.0-37.0); MCV 88.1 fL (80.0-100.0); Mean Platelet Volume 7.3; RBC 2.07 m/uL (3.80-5.40); RDW 16.8 % (11.5-15.5)
[2018-05-30 10:53] LABS: HCT 18.3 % (34.0-46.0)
[2018-05-30 10:54] LABS: HGB 6.3 gm/dL (11.4-16.0); Platelet Count 8 k/uL (150-450); WBC 0.1 k/uL (3.8-10.6)
[2018-05-30] MEDS ORDERED: VANCOMYCIN IV PER PHARMACY 1 EACH MISC MISCELLANE PRN (12:02)
[2018-05-30] MEDS ORDERED: VANCOMYCIN 2,000 MG in SODIUM CHLORIDE 0.9% 500 ML 500 ML IVPB STA (12:09)
[2018-05-30] MEDS: SODIUM CHLORIDE 0.9% 1,000 ML IV SCH ×2 (13:02→22:35)
[2018-05-30] MEDS ORDERED: ZOLPIDEM 10 MG TAB PO PRN (15:00)
[2018-05-30] MEDS ORDERED: ALBUTEROL NEBULIZED 2.5 MG/3 ML INHALATION PRN (15:00)
[2018-05-30] MEDS ORDERED: IPRATROPIUM-ALBUTEROL 3 ML NEB INHALATION PRN (15:00)
[2018-05-30] MEDS ORDERED: ONDANSETRON 4 MG TAB PO PRN (15:00)
--- NOTE | 2018-05-30 15:24 | P.HPIM ---
History of Present Illness 53-year-old female who presents to the emergency department with past medical history of AML for which she is receiving chemotherapy. Patient was told to come here because she has a fever and her white count is extremely low per patient states she recently received a blood transfusion as well as platelet transfusions. Patient states today she is complaining of a severe sore throat and is nauseated and vomiting. Patient states she's unable to take her pills because her throat so sore. Patient denies any cough patient denies any shortness of breath or difficulty breathing. Patient denies any abdominal pain. Patient denies any diarrhea. Patient denies any dysuria hematuria urinary frequency. Patient denies any areas of erythema redness or swelling. Patient has significant oral thrush and does have odynophagia. Patient did not receive Neulasta and her last chemotherapy was about 10 days ago on May 17. Review of Systems REVIEW OF SYSTEMS: CONSTITUTIONAL: As mentioned above HEENT: No recent visual problems or hearing problems. CARDIOVASCULAR: No chest pain, orthopnea, PND, no palpitations, no syncope. PULMONARY: No shortness of breath, no cough, no hemoptysis. GASTROINTESTINAL: No diarrhea, no nausea, no vomiting, no abdominal pain. Normoactive bowel sounds. NEUROLOGICAL: No headaches, no weakness, no numbness. HEMATOLOGICAL: Denies any bleeding or petechiae. GENITOURINARY: Denies any burning micturition, frequency, or urgency. MUSCULOSKELETAL/RHEUMATOLOGICAL: Denies any joint pain, swelling, or any muscle pain. ENDOCRINE: Denies any polyuria or polydipsia. The rest of the 14-point review of systems is negative. Past Medical History Past Medical History: Asthma, Blood Disorder, Cancer, Diabetes Mellitus, GERD/ Reflux, Hyperlipidemia, Hypertension, Respiratory Disorder, Thyroid Disorder Additional Past Medical History / Comment(s): AML,neutropenic sepsis/pneumonia/ respiratory failure and was intubated, chronic bronchial asthma, NIDDM type II, chronic back pain, neuropathy L hand, L hand 2nd and 3rd fingers are "locking up " at times, L sided carpal tunnel, hypothyroid, iron deficiency anemia, insomnia , sinus problems;diverticulitis. History of Any Multi-Drug Resistant Organisms: None Reported Past Surgical History: Adenoidectomy, Heart Catheterization, Tonsillectomy, Tubal Ligation Additional Past Surgical History / Comment(s): BMAs, bronchoscopy with washing, picc lines-current double lumen L upper forearm, carpel tunnel right wrist, bilateral cataract removal, bilateral laser eye surgery/lens implants, colonoscopy, epidural injections. Past Anesthesia/Blood Transfusion Reactions: No Reported Reaction Additional Past Anesthesia/Blood Transfusion Reaction / Comment(s): Pt has received platelets and blood transfusions without reaction. Past Psychological History: No Psychological Hx Reported Additional Psychological History / Comment(s): Pt states her anxiety and depression are managed with her medications. She lives alone and is independent. She used [facility] in past. No experience. No international travel. Is not a current tobacco smoker or significant alcohol user. Smoking Status: Never smoker Smoking Status: Never smoker Past Alcohol Use History: None Reported Past Drug Use History: None Reported - Past Family History Mother Family Medical History: Cancer Father Family Medical History: No Reported History Additional Family Medical History / Comment(s): Father is living. Medications and Allergies Home Medications Medication Instructions Recorded Confirmed Type Escitalopram Oxalate [Lexapro] 30 mg PO QAM 05/04/16 05/30/18 History Ferrous Sulfate [Iron (65 MG 325 mg PO DAILY 05/04/16 05/30/18 History Elemental)] Omeprazole [PriLOSEC] 20 mg PO AC-BID 05/04/16 05/30/18 History Atorvastatin [Lipitor] 20 mg PO DAILY 10/26/16 05/30/18 History Fluticasone Nasal [place] [Flonase 1 spray EA NOSTRIL DAILY 10/26/16 05/30/18 History Nasal [place]] Loratadine [Claritin] 10 mg PO DAILY 10/26/16 05/30/18 History Zolpidem [Ambien] 10 mg PO HS 10/26/16 05/30/18 History Furosemide [Lasix] 20 mg PO BID 08/19/17 05/30/18 History Levothyroxine Sodium [Synthroid] 125 mcg PO DAILY 08/19/17 05/30/18 History Potassium Chloride [Klor-Con 20] 20 meq PO BID 08/19/17 05/30/18 History Calcium Carbonate/Vitamin D3 1 tab PO DAILY 10/08/17 05/30/18 History [Calcium 600-Vit D3 400 Caplet] Metoprolol Tartrate [Lopressor] 50 mg PO BID 10/08/17 05/30/18 History Montelukast [Singulair] 10 mg PO HS 10/08/17 05/30/18 History Albuterol Inhaler [Ventolin Hfa 2 puff INHALATION RT-QID PRN 10/29/17 05/30/18 History Inhaler] Budesonide/Formoterol Fumarate 2 puff INHALATION RT-BID 10/29/17 05/30/18 History [Symbicort 160-4.5 Mcg Inhaler] Ipratropium-Albuterol Nebulize 3 ml INHALATION RT-QID PRN 10/29/17 05/30/18 History [Duoneb 0.5 mg-3 mg/3 ml Soln] Cyanocobalamin (Vitamin B-12) 1,000 mcg PO DAILY 90 Days #90 01/08/18 05/30/18 Rx [Vitamin B-12] tablet Ondansetron [Zofran] 4 mg PO Q6HR PRN #45 tab 01/24/18 05/30/18 Rx Acyclovir 400 mg PO BID #40 tablet 05/17/18 05/30/18 Rx Fluconazole [Diflucan] 100 mg PO DAILY #10 tab 05/17/18 05/30/18 Rx Allergies Allergy/AdvReac Type Severity Reaction Status Date / Time Penicillins Allergy Rash/Hives Verified 05/30/18 08:33 Physical Exam Vitals: Vital Signs Temp Pulse Resp BP Pulse Ox 05/30/18 14:00 98.8 F 80 20 102/66 97 05/30/18 13:30 18 107/69 95 05/30/18 13:00 98.8 F 84 18 114/65 97 05/30/18 12:30 84 18 106/66 98 05/30/18 12:00 86 20 115/68 95 05/30/18 11:30 99.8 F H 86 18 113/71 96 05/30/18 11:00 88 18 113/70 95 05/30/18 10:30 100.8 F H 96 20 113/70 95 05/30/18 08:23 100.8 F H 110 H 22 140/76 98 Intake and Output 05/29/18 05/30/18 05/30/18 22:59 06:59 14:59 Other: Weight 120.202 kg PHYSICAL EXAMINATION: GENERAL: The patient is alert and oriented x3, not in any acute distress. Well developed, well nourished. HEENT: Pupils are round and equally reacting to light. EOMI. No scleral icterus. No conjunctival pallor. Normocephalic, atraumatic. Patient has thrush in the posterior pharynx with significant redness in the posterior pharynx CARDIOVASCULAR: S1 and S2 present. No murmurs, rubs, or gallops. PULMONARY: Chest is clear to auscultation, no wheezing or crackles. ABDOMEN: Soft, nontender, nondistended, normoactive bowel sounds. No palpable organomegaly. MUSCULOSKELETAL: No joint swelling or deformity. EXTREMITIES: No cyanosis, clubbing, or pedal edema. NEUROLOGICAL: Gross neurological examination did not reveal any focal deficits. SKIN: No rashes. Results CBC & Chem 7: 05/30/18 10:20 05/30/18 09:05 Labs: Abnormal Lab Results - Last 24 Hours (Table) 05/30/18 05/30/18 05/30/18 Range/Units 09:05 09:05 09:05 WBC (3.8-10.6) k/uL RBC (3.80-5.40) m/uL Hgb (11.4-16.0) gm/dL Hct (34.0-46.0) % RDW (11.5-15.5) % Plt Count (150-450) k/uL APTT 19.6 L (22.0-30.0) sec Glucose 188 H (74-99) mg/dL Plasma Lactic Acid Bereket 2.6 H* (0.7-2.0) mmol/L Total Bilirubin 2.1 H (0.2-1.3) mg/dL Urine Protein (Negative) Ur Squamous Epith Cells (0-4) /hpf Urine Bacteria (None) /hpf Hyaline Casts (0-2) /lpf Urine Mucus (None) /hpf Crossmatch 05/30/18 05/30/18 05/30/18 Range/Units 09:40 10:20 12:00 WBC 0.1 L* (3.8-10.6) k/uL RBC 2.07 L (3.80-5.40) m/uL Hgb 6.3 L* (11.4-16.0) gm/dL Hct 18.3 L* (34.0-46.0) % RDW 16.8 H (11.5-15.5) % Plt Count 8 L* D (150-450) k/uL APTT (22.0-30.0) sec Glucose (74-99) mg/dL Plasma Lactic Acid Bereket (0.7-2.0) mmol/L Total Bilirubin (0.2-1.3) mg/dL Urine Protein 1+ H (Negative) Ur Squamous Epith Cells 5 H (0-4) /hpf Urine Bacteria Occasional H (None) /hpf Hyaline Casts 4 H (0-2) /lpf Urine Mucus Rare H (None) /hpf Crossmatch See Detail Microbiology - Last 24 Hours (Table) 05/30/18 09:05 Group A Strep Throat Culture - Preliminary Throat Thrombosis Risk Factor Assmnt - Choose All That Apply Any of the Below Risk Factors Present?: Yes Each Factor Represents 1 point: Age 41-60 years, Obesity (BMI >25), Sepsis (< 1month) Other Risk Factors: Yes Each Risk Factor Represents 2 Points: Malignancy Other congenital or acquired thrombophilia - If yes, enter type in comment: No Thrombosis Risk Factor Assessment Total Risk Factor Score: 5 Thrombosis Risk Factor Assessment Level: High Risk Assessment and Plan Plan: -Febrile neutropenia and sepsis: Source of sepsis probably related to severe bronchitis and pharyngitis, patient has significant fungal pharyngitis maybe esophagitis leading to odynophagia patient will be started on IV flucanazole patient is already on oral for consulted infectious disease, patient is on cefepime which will be continued patient has history of AML and she is receiving chemotherapy. Patient is on acyclovir prophylactically -Pancytopenia secondary to AML chemotherapy, patient is on prophylactic acyclovir and fluconazole to moderate 1 unit of PRBC transfusion which need to be irradiated -Asthma without any acute exacerbation -Type 2 diabetes mellitus -Gastroesophageal reflux disease - hyperlipidemia -Hypertension -hypothyroidism -Acute myeloid leukemia with recent chemo therapy into pancytopenia, did not receive any coronary relating factor. Recently received blood transfusion and platelet transfusion
[2018-05-30] MEDS: PANTOPRAZOLE 40 MG TABLET PO SCH (15:44)
[2018-05-30] MEDS ORDERED: MAG HYDROX/AL HYDROX/SIMETH 30 ML, diphenhydrAMINE ELIXIR 75 MG, LIDOCAINE VISCOUS 30 ML PO PRN ×3 (17:19)
[2018-05-30] MEDS ORDERED: ANIDULAFUNGIN 200 MG in SODIUM CHLORIDE 0.9% 200 ML IVPB ONE (18:00)
[2018-05-30] MEDS: CEFEPIME 2 GM in SODIUM CHLORIDE 0.9% 50 ML IVPB SCH (18:05)
[2018-05-30] MEDS: MAG HYDROX/AL HYDROX/SIMETH 30 ML, diphenhydrAMINE ELIXIR 75 MG, LIDOCAINE VISCOUS 30 ML PO SCH ×6 (18:33→23:48)
[2018-05-30] MEDS ORDERED: diphenhydrAMINE 25 MG CAP PO STA (18:49)
[2018-05-30] MEDS ORDERED: ACETAMINOPHEN TAB 500 MG TAB PO STA (18:50)
[2018-05-30] MEDS: SYMBICORT 160-4.5 MCG INHALER INHALATION SCH (20:37)
--- NOTE | 2018-05-30 21:17 | P.CONS ---
History of Present Illness - Reason for Consult Consult date: 05/30/18 AML Febrile Neutropenia on consolidation chemotherapy Requesting physician: Waldo Lua - Chief Complaint fever - History of Present Illness Malignancy History: Pt found to be leukopenic on routine blood work 11/14/17, WBC was 2.8, mild neutropenia, MCV 103.2, CBC and CMP otherwise unremarkable, peripheral smear did not reveal any suspicious morphology. CT AP 10/29/17 was done due to abdominal pain revealed fatty liver and diverticulitis. 01/10/18 bone marrow biopsy was done, positive for AML, cytogenetics and FISH were positive for inversion 16. Induction with 7+3 protocol was started on 01/16/18, repeat bone marrow biopsy on 02/13/18 revealed no residual leukemia! 0.6-2% blasts, normal cytogenetics. Induction was complicated by neutropenic sepsis, pneumonia, ventilator dependent respiratory failure. She was evaluated by Dr. Johnston, no need for allogenic transplant due to favorable finding of inversion of 16. She had 1st induction 03/10/18 and did require supportive PRBCs and platelet transfusions. Ms. Brunner is status post her 3rd Consolidation treatment with High dose cytarabine. She presents to the Emergency room for fevers and dysphagia. She has significant oral thrush, erythema posterior pharynx, she complains of associated nausea and some emesis. T max since admission 100.8. patient has been nunn cultured and started on antibiotics. Her blood counts are extremely low this am WBC 0.1, Hgb 6.3, Platlet 8. She is receiving PRBC and Platelet transfusions. She is ONLY to receive leuko reduced irradiated blood products as with AML she is likely candidate for stem cell transplant. Review of Systems A 14 point review of systems assessed and completed and all negative except HPI. Past Medical History Past Medical History: Asthma, Blood Disorder, Cancer, Diabetes Mellitus, GERD/ Reflux, Hyperlipidemia, Hypertension, Respiratory Disorder, Thyroid Disorder Additional Past Medical History / Comment(s): AML,neutropenic sepsis/pneumonia/ respiratory failure and was intubated, chronic bronchial asthma, NIDDM type II, chronic back pain, neuropathy L hand, L hand 2nd and 3rd fingers are "locking up " at times, L sided carpal tunnel, hypothyroid, iron deficiency anemia, insomnia , sinus problems;diverticulitis. History of Any Multi-Drug Resistant Organisms: None Reported Past Surgical History: Adenoidectomy, Heart Catheterization, Tonsillectomy, Tubal Ligation Additional Past Surgical History / Comment(s): BMAs, bronchoscopy with washing, picc lines-current double lumen L upper forearm, carpel tunnel right wrist, bilateral cataract removal, bilateral laser eye surgery/lens implants, colonoscopy, epidural injections. Past Anesthesia/Blood Transfusion Reactions: No Reported Reaction Additional Past Anesthesia/Blood Transfusion Reaction / Comm: Pt has received platelets and blood transfusions without reaction. Past Psychological History: No Psychological Hx Reported Additional Psychological History / Comment(s): Pt states her anxiety and depression are managed with her medications. She lives alone and is independent. She used [facility] [facility] in past. No experience. No international travel. Is not a current tobacco smoker or significant alcohol user. Smoking Status: Never smoker Smoking Status: Never smoker Past Alcohol Use History: None Reported Past Drug Use History: None Reported - Past Family History Mother Family Medical History: Cancer Father Family Medical History: No Reported History Additional Family Medical History / Comment(s): Father is living. Medications and Allergies Home Medications Medication Instructions Recorded Confirmed Type Escitalopram Oxalate [Lexapro] 30 mg PO QAM 05/04/16 05/30/18 History Ferrous Sulfate [Iron (65 MG 325 mg PO DAILY 05/04/16 05/30/18 History Elemental)] Omeprazole [PriLOSEC] 20 mg PO AC-BID 05/04/16 05/30/18 History Atorvastatin [Lipitor] 20 mg PO DAILY 10/26/16 05/30/18 History Fluticasone Nasal [place] [Flonase 1 spray EA NOSTRIL DAILY 10/26/16 05/30/18 History Nasal [place]] Loratadine [Claritin] 10 mg PO DAILY 10/26/16 05/30/18 History Zolpidem [Ambien] 10 mg PO HS 10/26/16 05/30/18 History Furosemide [Lasix] 20 mg PO BID 08/19/17 05/30/18 History Levothyroxine Sodium [Synthroid] 125 mcg PO DAILY 08/19/17 05/30/18 History Potassium Chloride [Klor-Con 20] 20 meq PO BID 08/19/17 05/30/18 History Calcium Carbonate/Vitamin D3 1 tab PO DAILY 10/08/17 05/30/18 History [Calcium 600-Vit D3 400 Caplet] Metoprolol Tartrate [Lopressor] 50 mg PO BID 10/08/17 05/30/18 History Montelukast [Singulair] 10 mg PO HS 10/08/17 05/30/18 History Albuterol Inhaler [Ventolin Hfa 2 puff INHALATION RT-QID PRN 10/29/17 05/30/18 History Inhaler] Budesonide/Formoterol Fumarate 2 puff INHALATION RT-BID 10/29/17 05/30/18 History [Symbicort 160-4.5 Mcg Inhaler] Ipratropium-Albuterol Nebulize 3 ml INHALATION RT-QID PRN 10/29/17 05/30/18 History [Duoneb 0.5 mg-3 mg/3 ml Soln] Cyanocobalamin (Vitamin B-12) 1,000 mcg PO DAILY 90 Days #90 01/08/18 05/30/18 Rx [Vitamin B-12] tablet Ondansetron [Zofran] 4 mg PO Q6HR PRN #45 tab 01/24/18 05/30/18 Rx Acyclovir 400 mg PO BID #40 tablet 05/17/18 05/30/18 Rx Fluconazole [Diflucan] 100 mg PO DAILY #10 tab 05/17/18 05/30/18 Rx Allergies Allergy/AdvReac Type Severity Reaction Status Date / Time Penicillins Allergy Rash/Hives Verified 05/30/18 08:33 Physical Exam Vitals: Vital Signs Temp Pulse Resp BP Pulse Ox 05/30/18 14:00 98.8 F 80 20 102/66 97 05/30/18 13:30 18 107/69 95 05/30/18 13:00 98.8 F 84 18 114/65 97 05/30/18 12:30 84 18 106/66 98 05/30/18 12:00 86 20 115/68 95 05/30/18 11:30 99.8 F H 86 18 113/71 96 05/30/18 11:00 88 18 113/70 95 05/30/18 10:30 100.8 F H 96 20 113/70 95 05/30/18 08:23 100.8 F H 110 H 22 140/76 98 Intake and Output 05/30/18 05/30/18 05/30/18 06:59 14:59 22:59 Other: Weight 120.202 kg Constitutional General appearance: cooperative, no acute distress, obese - EENT Eyes: anicteric sclerae, EOMI, normal appearance ENT: hearing grossly normal, Oropharynx with significant thrush and posterior pharynx erythema. - Neck Neck: no lymphadenopathy - Respiratory audible wheeze and congested sounding cough Respiratory: bilateral: CTA - Cardiovascular Rhythm: regular Heart sounds: normal: S1, S2 Abnormal Heart Sounds: systolic murmur leg Peripheral Edema: bilateral: None - Gastrointestinal General gastrointestinal: no absent bowel sounds, no decreased bowel sounds, no distended, no hepatomegaly, no hyperactive bowel sounds, normal bowel sounds, no organomegaly, no rigid, no scaphoid, soft, no splenomegaly, no tenderness, no umbilical hernia, no ventral hernia - Integumentary Integumentary: normal turgor, pale - Neurologic Neurologic: CNII-XII intact - Musculoskeletal Musculoskeletal: strength equal bilaterally - Psychiatric Psychiatric: A&O x's 3, appropriate affect, intact judgment & insight Results CBC & Chem 7: 05/30/18 10:20 05/30/18 09:05 Labs: Abnormal Lab Results - Last 24 Hours (Table) 05/30/18 05/30/18 05/30/18 Range/Units 09:05 09:05 09:05 WBC (3.8-10.6) k/uL RBC (3.80-5.40) m/uL Hgb (11.4-16.0) gm/dL Hct (34.0-46.0) % RDW (11.5-15.5) % Plt Count (150-450) k/uL APTT 19.6 L (22.0-30.0) sec Glucose 188 H (74-99) mg/dL Plasma Lactic Acid Bereket 2.6 H* (0.7-2.0) mmol/L Total Bilirubin 2.1 H (0.2-1.3) mg/dL Urine Protein (Negative) Ur Squamous Epith Cells (0-4) /hpf Urine Bacteria (None) /hpf Hyaline Casts (0-2) /lpf Urine Mucus (None) /hpf Crossmatch 05/30/18 05/30/18 05/30/18 Range/Units 09:40 10:20 12:00 WBC 0.1 L* (3.8-10.6) k/uL RBC 2.07 L (3.80-5.40) m/uL Hgb 6.3 L* (11.4-16.0) gm/dL Hct 18.3 L* (34.0-46.0) % RDW 16.8 H (11.5-15.5) % Plt Count 8 L* D (150-450) k/uL APTT (22.0-30.0) sec Glucose (74-99) mg/dL Plasma Lactic Acid Bereket (0.7-2.0) mmol/L Total Bilirubin (0.2-1.3) mg/dL Urine Protein 1+ H (Negative) Ur Squamous Epith Cells 5 H (0-4) /hpf Urine Bacteria Occasional H (None) /hpf Hyaline Casts 4 H (0-2) /lpf Urine Mucus Rare H (None) /hpf Crossmatch See Detail Microbiology - Last 24 Hours (Table) 05/30/18 09:40 Urine Culture - Preliminary Urine,Voided 05/30/18 09:05 Group A Strep Throat Culture - Preliminary Throat Assessment and Plan Plan: (1) Acute myeloid leukemia Narrative/Plan: -Status Post Cycle 3 of consolidation with high dose cytarabine. - Labs daily - Daily CBC with diff follow up (2) Pancytopenia secondary to chemotherapy: - Transfusion of Irradiated blood products only Hgb less than 7 or platlets less than 15 (in febrile neutropenia) (3)febrile Neutropenia: - Nunn Culture - Antifungal and IV Abx - Infectious Disease Consultation (4) Grade 3/4 Oral Candiasis - IV Diflucan Continue supportive care, neutropenic and bleeding precautions
[2018-05-30] MEDS: MONTELUKAST 10 MG TAB PO SCH (23:53)
[2018-05-30] MEDS: METOPROLOL TARTRATE 50 MG TAB PO SCH (23:54)
[2018-05-31] MEDS: ACYCLOVIR 200 MG CAP PO SCH ×3 (00:02→21:00)
[2018-05-31] MEDS: NYSTATIN 100,000 UNIT/ML SUSP 500,000 UNIT/5 ML CUP PO SCH ×5 (00:05→21:01)
--- NOTE | 2018-05-31 00:11 | CONS ---
CONSULTATION DATE OF SERVICE: 05/30/2018. REASON FOR CONSULTATION: Febrile neutropenia. HISTORY OF PRESENT ILLNESS: The patient is a 53-year-old female with past medical history significant for acute myeloid leukemia diagnosed back in December of 2017 and the patient is status post 3rd consultation treatment with high-dose cytarabine, completing on 05/17/2018. The patient presenting to the ER at [facility] with significant sore throat and difficulty in swallowing and a fever that apparently started yesterday. Fever has been as high as 101 degrees Fahrenheit. The patient denies having any headache. No other URI symptoms. No chest pain, shortness of breath. Minimal cough. No abdominal pain. No nausea, no vomiting. No diarrhea and no burning of frequency of urine. With these symptoms, patient presented to the hospital. She was evaluated by the ER physician. The patient did have a fever of 100.8 and 101.5 degrees Fahrenheit. The patient has been tachycardic. Her white count was 0.1, hemoglobin 6.3 with a platelet count of 8. The patient's electrolytes have been normal. Lactic acid was 2.3. Liver enzymes are normal. Urine has been negative. Influenza serology was negative. Group A Strep, Group B Strep was negative. Patient did have a chest x-ray shows right perihilar changes poor to rather than pneumonia. The patient was started on cefepime and Infectious Disease was consulted for further recommendation regarding antibiotic therapy. REVIEW OF SYSTEMS: CONSTITUTIONAL: Positive for weakness along with the fever. EYES: No complaint. ENT as per HPI. Respiratory no complaint. Cardiovascular no complaint. Genitourinary no complaint. Gastrointestinal: No complaint. Musculoskeletal: No complaint. Integumentary: No complaint. Psychological no complaint. Endocrine: No complaint. Neurologic no complaint. PAST MEDICAL HISTORY: Significant for diabetes mellitus, gastroesophageal reflux disease, acute myeloid leukemia, hyperlipidemia, hypertension, hypothyroidism. PAST SURGICAL HISTORY: Heart catheterization, tonsillectomy, tubal ligation, adenoidectomy, bronchoscopy with washing, colonoscopy, injections. SOCIAL HISTORY: No history of smoking, drinking, or drug use. FAMILY HISTORY: No pertinent findings noticed. FAMILY HISTORY: No pertinent findings were noticed. ALLERGIES: ALLERGIES TO PENICILLIN WITH HIVES. No anaphylaxis. Tolerated cefepime without any problem. MEDICATION: Include the patient is currently on Tylenol, : DuoNeb and Anidulafungin, Lipitor, Symbicort, Rocephin 2 g q.8h. Lexapro, iron sulfate, Synthroid, Claritin, Lopressor, Singulair, Mycostatin oral suspension, Zofran, Protonix, Ambien. EXAMINATION: Blood pressure 101/60 with a pulse of 90, temperature 98.9. She is 98% on room air. General description is a middle-aged female lying in bed in no distress. No tachypnea or accessory muscle of respiration use. HEENT examination: Pallor, no scleral icterus. Swollen, extensive thrush. Neck: Trachea central, no thyromegaly. Lungs unlabored breathing. Decreased breath sounds at the bases. No wheeze or crackles. Heart S1, S2. Regular rate and rhythm. Abdomen: Soft, no tenderness. No rigidity. Extremities: No edema of the feet. Skin examination: No rash or mass palpable. Neurological: Patient is awake, alert, oriented times three. Mood and affect normal. LABS: Hemoglobin 6 with white count 0.1 with a BUN of 10, creatinine 0.6. Lactic acid 2.6. DIAGNOSTIC IMPRESSION AND PLAN: Patient admitted to the hospital with sepsis in this patient who did have a fever and leukopenia patient with history of acute myeloid leukemia status post treated with chemotherapy that she completed about a week ago. Patient did have extensive oral thrush, but no other clinical focus of infection. The patient did have some atelectasis on the right side, but the patient denies significant cough or sputum production to be possible pneumonia, abdomen was soft on clinical examination. No evidence of any cellulitis and UA has been negative. PLAN: 1. The patient will be treated with nystatin swish and swallow addition to the access for extensive oral thrush. 2. Cefepime 2 g q.8 hours. 3. We will follow up on clinical condition and culture to further adjust medication if needed. Thank you for this consultation. Will follow this patient along with you. MMODL / IJN: [id number] /
[2018-05-31] MEDS ORDERED: VANCOMYCIN 2,000 MG in SODIUM CHLORIDE 0.9% 500 ML 500 ML IVPB SCH (01:00)
[2018-05-31] MEDS: CEFEPIME 2 GM in SODIUM CHLORIDE 0.9% 50 ML IVPB SCH ×4 (02:01→23:32)
[2018-05-31] MEDS: SODIUM CHLORIDE 0.9% 1,000 ML IV SCH ×3 (06:02→16:17)
[2018-05-31 07:11] LABS: Glucose,Whole Blood 150 mg/dL (75-99)
[2018-05-31] MEDS: LEVOTHYROXINE 125 MCG TAB PO SCH (07:46)
[2018-05-31] MEDS ORDERED: TRIMETHOBENZAMIDE 100 MG/ML 2 ML VIAL IM PRN (08:26)
[2018-05-31] MEDS ORDERED: FLUCONAZOLE IN NACL,ISO-OSM 100 MG in SALINE 1 50ML.BAG IVPB SCH (09:00)
[2018-05-31 09:01] LABS: Anisocytosis Slight; MCH 30.4 pg (25.0-35.0); MCHC 34.6 g/dL (31.0-37.0); MCV 87.9 fL (80.0-100.0); Mean Platelet Volume 8.4; RBC 2.09 m/uL (3.80-5.40); RDW 16.1 % (11.5-15.5)
[2018-05-31 09:09] LABS: HCT 18.4 % (34.0-46.0); HGB 6.4 gm/dL (11.4-16.0); Platelet Count 9 k/uL (150-450); WBC 0.2 k/uL (3.8-10.6)
[2018-05-31 09:13] LABS: Anion Gap 9 mmol/L; Blood Urea Nitrogen 8 mg/dL (7-17); Calcium 8.8 mg/dL (8.4-10.2); Carbon Dioxide 24 mmol/L (22-30); Chloride 108 mmol/L (98-107); Glucose 165 mg/dL (74-99); Potassium 3.8 mmol/L (3.5-5.1); Sodium 141 mmol/L (137-145)
[2018-05-31] MEDS: ANIDULAFUNGIN 100 MG in SODIUM CHLORIDE 0.9% 100 ML IVPB SCH (09:48)
--- NOTE | 2018-05-31 09:55 | P.CONS ---
History of Present Illness - Reason for Consult Consult date: 05/30/18 - Chief Complaint Fever - History of Present Illness 53-year-old patient well-known to the service for Occasions of her AML. Presents to hospital with fever and leukopenia after being evaluated in the oncology office. She relates that she's been feeling somewhat poorly as of late related to the measures are round of chemotherapy. She mostly has been having difficulties with eating. She's had 3 days of difficulty in eating any foods because of pain in her pharynx difficulty with swallowing. She's had no significant nausea or emesis. No evidence of any bleeding. She's had some low- grade fever and she is definitely had some chills. She's had no skin rashes or she's had no diarrhea. She denying cough or sputum production. Review of Systems HEENT:Denies headache or acute visual change. Denies sinus or mouth discomforts. Denies neck stiffness or pain. As per the HPI oral cavity tender and has difficulty swallowing Lungs: Denies significant shortness of breath, cough, sputum production, or hemoptysis. Cardiovascular: Denies significant shortness of breath, chest pain, chest wall pain, orthopnea, dyspnea on exertion, syncope Gastrointestinal:Denies nausea, vomiting, diarrhea, constipation, hematemesis, melena, hematochezia. No no significant change of bowel habit noticed. Musculoskeletal: denies significant myalgias or arthralgias. No new joint swelling. Denies new back pain. Skin: Denies new rash or lesions. No new ulcers or wounds are related.. Neuro: Denies headache or visual change. Denies any new onset weakness or difficulty with ambulation. Denies falls or seizures. Psychiatric:Denies anxiety or depression. Endocrine: Denies significant fatigue, denies significant weight loss or weight gain. Past Medical History Past Medical History: Asthma, Blood Disorder, Cancer, Diabetes Mellitus, GERD/ Reflux, Hyperlipidemia, Hypertension, Respiratory Disorder, Thyroid Disorder Additional Past Medical History / Comment(s): AML,neutropenic sepsis/pneumonia/ respiratory failure and was intubated, chronic bronchial asthma, NIDDM type II, chronic back pain, neuropathy L hand, L hand 2nd and 3rd fingers are "locking up " at times, L sided carpal tunnel, hypothyroid, iron deficiency anemia, insomnia , sinus problems;diverticulitis. History of Any Multi-Drug Resistant Organisms: None Reported Past Surgical History: Adenoidectomy, Heart Catheterization, Tonsillectomy, Tubal Ligation Additional Past Surgical History / Comment(s): BMAs, bronchoscopy with washing, picc lines-current double lumen L upper forearm, carpel tunnel right wrist, bilateral cataract removal, bilateral laser eye surgery/lens implants, colonoscopy, epidural injections. Past Anesthesia/Blood Transfusion Reactions: No Reported Reaction Additional Past Anesthesia/Blood Transfusion Reaction / Comm: Pt has received platelets and blood transfusions without reaction. Past Psychological History: No Psychological Hx Reported Additional Psychological History / Comment(s): Pt states her anxiety and depression are managed with her medications. She lives alone and is independent. She used [facility] in past. No experience. No international travel. Is not a current tobacco smoker or significant alcohol user. Smoking Status: Never smoker Smoking Status: Never smoker Past Alcohol Use History: None Reported Past Drug Use History: None Reported - Past Family History Mother Family Medical History: Cancer Father Family Medical History: No Reported History Additional Family Medical History / Comment(s): Father is living. Medications and Allergies Home Medications and Allergies Comment(s): Current Medications Acetaminophen (Tylenol Tab) 650 mg PO Q6HR PRN PRN Reason: Fever and/ or Pain Acyclovir (Zovirax) 400 mg PO BID [facility] Last Admin: 05/31/18 00:02 Dose: Not Given Albuterol/Ipratropium (Duoneb 0.5 Mg-3 Mg/3 Ml Soln) 3 ml INHALATION RT-QID PRN PRN Reason: Shortness Of Breath Atorvastatin Calcium (Lipitor) 20 mg PO DAILY [facility] Budesonide/Formoterol Fumarate (Symbicort 160-4.5 Mcg Inhaler) 2 puff INHALATION RT-BID [facility] Last Admin: 05/30/18 20:37 Dose: Not Given Calcium Carbonate (Oscal 500+D) 1 each PO 1200 [facility] Al Hydroxide/Mg Hydroxide 30 ml/ Diphenhydramine HCl 75 mg/Lidocaine HCl 30 ml 0 ml PO TID [facility] Last Admin: 05/30/18 23:48 Dose: 5 ml Al Hydroxide/Mg Hydroxide 30 ml/ Diphenhydramine HCl 75 mg/Lidocaine HCl 30 ml 0 ml PO DAILY PRN PRN Reason: severe oral pain Escitalopram Oxalate (Lexapro) 30 mg PO QAM [facility] Ferrous Sulfate (Feosol) 325 mg PO 1200 [facility] Cefepime HCl 2 gm/ Sodium (Chloride) 50 mls @ 100 mls/hr IVPB Q8HR [facility] Last Admin: 05/31/18 09:04 Dose: 100 mls/hr Sodium Chloride (Saline 0.9%) 1,000 mls @ 150 mls/hr IV .Q6H40M [facility] Last Admin: 05/31/18 06:02 Dose: 150 mls/hr Anidulafungin 100 mg/ Sodium (Chloride) 100 mls @ 84 mls/hr IVPB DAILY [facility] Levothyroxine Sodium (Synthroid) 125 mcg PO 0630 [facility] Last Admin: 05/31/18 07:46 Dose: 125 mcg Loratadine (Claritin) 10 mg PO DAILY [facility] Metoprolol Tartrate (Lopressor) 50 mg PO BID [facility] Last Admin: 05/30/18 23:54 Dose: 50 mg Montelukast Sodium (Singulair) 10 mg PO HS [facility] Last Admin: 05/30/18 23:53 Dose: 10 mg Nystatin (Mycostatin Oral Susp) 500,000 unit PO QID [facility] Last Admin: 05/31/18 00:05 Dose: Not Given Ondansetron HCl (Zofran) 4 mg PO Q6HR PRN PRN Reason: Nausea Pantoprazole Sodium (Protonix) 40 mg PO AC-BID [facility] Last Admin: 05/30/18 15:44 Dose: 40 mg Trimethobenzamide HCl (Tigan) 100 mg IM Q6HR PRN PRN Reason: Nausea And Vomiting Last Admin: 05/31/18 09:46 Dose: 100 mg Zolpidem Tartrate (Ambien) 10 mg PO HS PRN PRN Reason: Insomnia Home Medications Medication Instructions Recorded Confirmed Type Escitalopram Oxalate [Lexapro] 30 mg PO QAM 05/04/16 05/30/18 History Ferrous Sulfate [Iron (65 MG 325 mg PO DAILY 05/04/16 05/30/18 History Elemental)] Omeprazole [PriLOSEC] 20 mg PO AC-BID 05/04/16 05/30/18 History Atorvastatin [Lipitor] 20 mg PO DAILY 10/26/16 05/30/18 History Fluticasone Nasal Huger [Flonase 1 spray EA NOSTRIL DAILY 10/26/16 05/30/18 History Nasal Huger] Loratadine [Claritin] 10 mg PO DAILY 10/26/16 05/30/18 History Zolpidem [Ambien] 10 mg PO HS 10/26/16 05/30/18 History Furosemide [Lasix] 20 mg PO BID 08/19/17 05/30/18 History Levothyroxine Sodium [Synthroid] 125 mcg PO DAILY 08/19/17 05/30/18 History Potassium Chloride [Klor-Con 20] 20 meq PO BID 08/19/17 05/30/18 History Calcium Carbonate/Vitamin D3 1 tab PO DAILY 10/08/17 05/30/18 History [Calcium 600-Vit D3 400 Caplet] Metoprolol Tartrate [Lopressor] 50 mg PO BID 10/08/17 05/30/18 History Montelukast [Singulair] 10 mg PO HS 10/08/17 05/30/18 History Albuterol Inhaler [Ventolin Hfa 2 puff INHALATION RT-QID PRN 10/29/17 05/30/18 History Inhaler] Budesonide/Formoterol Fumarate 2 puff INHALATION RT-BID 10/29/17 05/30/18 History [Symbicort 160-4.5 Mcg Inhaler] Ipratropium-Albuterol Nebulize 3 ml INHALATION RT-QID PRN 10/29/17 05/30/18 History [Duoneb 0.5 mg-3 mg/3 ml Soln] Cyanocobalamin (Vitamin B-12) 1,000 mcg PO DAILY 90 Days #90 01/08/18 05/30/18 Rx [Vitamin B-12] tablet Ondansetron [Zofran] 4 mg PO Q6HR PRN #45 tab 01/24/18 05/30/18 Rx Acyclovir 400 mg PO BID #40 tablet 05/17/18 05/30/18 Rx Fluconazole [Diflucan] 100 mg PO DAILY #10 tab 05/17/18 05/30/18 Rx Allergies Allergy/AdvReac Type Severity Reaction Status Date / Time Penicillins Allergy Rash/Hives Verified 05/30/18 08:33 Physical Exam Vitals: Vital Signs Temp Pulse Pulse Resp BP BP Pulse Ox 05/31/18 06:02 99.5 F 83 18 124/66 05/31/18 05:53 99.2 F 83 18 115/67 93 L 05/31/18 04:49 79 18 05/31/18 03:34 100.8 F H 84 18 113/65 95 05/31/18 03:31 100.9 F H 85 18 113/65 94 L 05/31/18 03:04 101.0 F H 86 18 116/64 95 05/31/18 02:54 100.8 F H 85 18 114/58 95 05/31/18 01:52 100.1 F H 85 16 102/63 05/31/18 01:45 79 18 05/31/18 01:39 99.5 F 92 18 113/61 93 L 05/31/18 00:57 100.7 F H 97 18 119/61 96 05/31/18 00:27 99.8 F H 105 H 18 120/70 94 L 05/31/18 00:17 101.5 F H 106 H 18 133/69 96 05/30/18 21:30 79 18 05/30/18 20:42 101.5 F H 106 H 18 137/89 98 05/30/18 15:30 98.9 F 90 20 108/68 98 05/30/18 14:00 98.8 F 80 20 102/66 97 05/30/18 13:30 18 107/69 95 05/30/18 13:00 98.8 F 84 18 114/65 97 05/30/18 12:30 84 18 106/66 98 05/30/18 12:00 86 20 115/68 95 05/30/18 11:30 99.8 F H 86 18 113/71 96 05/30/18 11:00 88 18 113/70 95 05/30/18 10:30 100.8 F H 96 20 113/70 95 Intake and Output 05/30/18 05/31/18 05/31/18 22:59 06:59 14:59 Intake Total 722 1999 Balance 722 1999 Intake: Intake, IV Titration 500 1350 Amount Anidulafungin 100 mg In 100 Sodium Chloride 0.9% 100 ml @ 84 mls/hr IVPB DAILY [facility] Rx#:[id number] Cefepime 2 gm In Sodium 50 Chloride 0.9% 50 ml @ 100 mls/hr IVPB Q8HR [facility] Rx# :[id number] Sodium Chloride 0.9% 1, 1200 000 ml @ 150 mls/hr IV . Q6H40M [facility] Rx#:[id number] Vancomycin 2,000 mg In 500 Sodium Chloride 0.9% 500 ml 500 ml @ 167 mls/hr IVPB Q12H [facility] Rx#: [id number] Oral 222 Blood Product 650 Platelet Irr Pheresis 0 Acda1 Unit [id number] Rc Irr As1 Unit 0 [id number] Other: Voiding Method Toilet Toilet # Voids 1 Weight 120.202 kg 110.677 kg Pleasant 53-year-old woman who suffers from obesity but is comfortable at this time except for her difficulty with swallowing HEENT: Anicteric conjunctiva are pink and moist nasal mucosa grossly intact without significant lesions, there is extensive thrush in the posterior pharynx and has tenderness. No significant open ulcerations or bleeding is seen Neck: The neck is supple without significant lymphadenopathy or thyromegaly. Lungs: Good bilateral air entry without significant crackles or wheezing. There is no significant bronchial sounds. There is no egophony or dullness. Heart: Regular rate and rhythm with an audible S1-S2, no S3 no S4. There is no significant murmur click or rub, PMI was nondisplaced. Abdomen: Obese, Positive bowel sounds soft and nontender without palpable masses or organomegaly. There was no guarding or rebound. Extremities: The upper extremities have excellent pulses they are symmetric, no significant petechiae or telangiectasia. No splinter hemorrhages were noted. The lower extremities are free from significant edema. The peripheral pulses were 2+ and symmetric. Neuro: Awake alert oriented to person place and time. There are no acute new gross focal sensory motor deficits. Results CBC & Chem 7: 05/31/18 08:34 05/31/18 08:34 Labs: Abnormal Lab Results - Last 24 Hours (Table) 05/30/18 05/30/18 05/30/18 Range/Units 09:05 09:05 09:05 WBC (3.8-10.6) k/uL RBC (3.80-5.40) m/uL Hgb (11.4-16.0) gm/dL Hct (34.0-46.0) % RDW (11.5-15.5) % Plt Count (150-450) k/uL APTT 19.6 L (22.0-30.0) sec Chloride (98-107) mmol/L Glucose 188 H (74-99) mg/dL POC Glucose (mg/dL) (75-99) mg/dL Plasma Lactic Acid Bereket 2.6 H* (0.7-2.0) mmol/L Total Bilirubin 2.1 H (0.2-1.3) mg/dL Urine Protein (Negative) Ur Squamous Epith Cells (0-4) /hpf Urine Bacteria (None) /hpf Hyaline Casts (0-2) /lpf Urine Mucus (None) /hpf Crossmatch 05/30/18 05/30/18 05/30/18 Range/Units 09:40 10:20 12:00 WBC 0.1 L* (3.8-10.6) k/uL RBC 2.07 L (3.80-5.40) m/uL Hgb 6.3 L* (11.4-16.0) gm/dL Hct 18.3 L* (34.0-46.0) % RDW 16.8 H (11.5-15.5) % Plt Count 8 L* D (150-450) k/uL APTT (22.0-30.0) sec Chloride (98-107) mmol/L Glucose (74-99) mg/dL POC Glucose (mg/dL) (75-99) mg/dL Plasma Lactic Acid Bereket (0.7-2.0) mmol/L Total Bilirubin (0.2-1.3) mg/dL Urine Protein 1+ H (Negative) Ur Squamous Epith Cells 5 H (0-4) /hpf Urine Bacteria Occasional H (None) /hpf Hyaline Casts 4 H (0-2) /lpf Urine Mucus Rare H (None) /hpf Crossmatch See Detail 05/31/18 05/31/18 05/31/18 Range/Units 07:08 08:34 08:34 WBC 0.2 L* (3.8-10.6) k/uL RBC 2.09 L (3.80-5.40) m/uL Hgb 6.4 L* (11.4-16.0) gm/dL Hct 18.4 L* (34.0-46.0) % RDW 16.1 H (11.5-15.5) % Plt Count 9 L* (150-450) k/uL APTT (22.0-30.0) sec Chloride 108 H (98-107) mmol/L Glucose 165 H (74-99) mg/dL POC Glucose (mg/dL) 150 H (75-99) mg/dL Plasma Lactic Acid Bereket (0.7-2.0) mmol/L Total Bilirubin (0.2-1.3) mg/dL Urine Protein (Negative) Ur Squamous Epith Cells (0-4) /hpf Urine Bacteria (None) /hpf Hyaline Casts (0-2) /lpf Urine Mucus (None) /hpf Crossmatch Microbiology - Last 24 Hours (Table) 05/30/18 09:40 Urine Culture - Preliminary Urine,Voided 05/30/18 09:05 Group A Strep Throat Culture - Preliminary Throat Microbiology 05/30/18 09:40 Urine,Voided Urine Culture - Preliminary 05/30/18 09:05 Throat Group A Strep Throat Culture - Preliminary Chest x-ray: report reviewed (No evidence of any active infiltration) Assessment and Plan (1) Febrile neutropenia Narrative/Plan: Pleasant 53-year-old woman well-known to this service who presents to Hospital after being evaluated in the oncology office where she had evidence of fever as well as leukopenia and difficulty eating foods and liquids because of pain. Exam reveals evidence of the extensive oral candidiasis and likely candidate of the at least upper esophagus based on symptoms. Given this Eraxis is begun for the treatment of the Shae infection. She over does have fever and significant leukopenia and consequently cefepime is added for treatment of this also. Multiple cultures are in process. Oncology reveals growth factors have already been given Cool solution is been requested to help her with her symptoms especially with her meals and in between if needed. Pain medication was given per oncology. Patient remains a candidate for an autologous bone marrow transplantation in the future Current Visit: Yes Status: Acute Code(s): D70.9 - NEUTROPENIA, UNSPECIFIED; R50.81 - FEVER PRESENTING WITH CONDITIONS CLASSIFIED ELSEWHERE SNOMED Code(s) : 495153958 (2) Acute myeloid leukemia Current Visit: No Status: Acute Priority: High Code(s): C92.00 - ACUTE MYELOBLASTIC LEUKEMIA, NOT HAVING ACHIEVED REMISSION SNOMED Code(s): 35880003 (3) Thrush of mouth and esophagus Current Visit: Yes Status: Acute Code(s): B37.81 - CANDIDAL ESOPHAGITIS; B37.0 - CANDIDAL STOMATITIS SNOMED Code(s): 569229671
[2018-05-31] MEDS ORDERED: ONDANSETRON 4 MG/2 ML VIAL IVP PRN (10:38)
[2018-05-31 11:02] LABS: Glucose,Whole Blood 165 mg/dL (75-99)
[2018-05-31] MEDS: ATORVASTATIN 20 MG TAB PO SCH (11:24)
[2018-05-31] MEDS: ESCITALOPRAM 10 MG TAB PO SCH (11:24)
[2018-05-31] MEDS: LORATADINE 10 MG TAB PO SCH (11:24)
[2018-05-31] MEDS: METOPROLOL TARTRATE 50 MG TAB PO SCH ×2 (11:24→21:35)
[2018-05-31] MEDS: PANTOPRAZOLE 40 MG TABLET PO SCH ×2 (11:24→17:21)
[2018-05-31] MEDS: MAG HYDROX/AL HYDROX/SIMETH 30 ML, diphenhydrAMINE ELIXIR 75 MG, LIDOCAINE VISCOUS 30 ML PO SCH ×9 (11:25→21:01)
[2018-05-31] MEDS: CALCIUM CARB-VIT D 500MG-200UN 1 EACH TAB PO SCH (11:25)
[2018-05-31] MEDS: FERROUS SULFATE 325 MG TAB PO SCH (11:25)
[2018-05-31] MEDS ORDERED: ACETAMINOPHEN TAB 500 MG TAB PO STA (11:29)
[2018-05-31] MEDS ORDERED: diphenhydrAMINE 50 MG/ML 1 ML VIAL IVP STA (11:29)
[2018-05-31] MEDS: SYMBICORT 160-4.5 MCG INHALER INHALATION SCH ×2 (13:40→20:57)
[2018-05-31 14:27] LABS: Hemoglobin A1C 7.5 % (4.0-6.0)
--- NOTE | 2018-05-31 14:50 | P.PN ---
Subjective 52-year-old female admitted for febrile neutropenia patient received chemotherapy for acute myeloid leukemia patient hemoglobin is quite low is receiving irradiated PRBC transfusion. Patient probably is presently on cefepime, anidulafungin, and acyclovir patient can use to have odynophagia unable to take anything by mouth by mouth medications will be switched to oral Constitutional: Denied any fatigue denied any fever. Cardio vascular: denied any chest pain, palpitations Gastrointestinal as mentioned in HPI odynophagia and vomiting. Pulmonary: Denied any shortness of breath cough Neurologic denied any new focal deficits All inpatient medications were reviewed and appropriate changes in these medications as dictated in the interval history and assessment and plan. Objective - Vital Signs Vital signs: Vital Signs Temp 99.1 F 05/31/18 14:15 Pulse 94 05/31/18 14:15 Resp 18 05/31/18 14:15 BP 144/85 05/31/18 14:15 Pulse Ox 97 05/31/18 14:15 Intake & Output 05/30/18 05/31/18 05/31/18 18:59 06:59 18:59 Intake Total 722 2000 1403 Balance 722 2000 1403 Weight 120.202 kg 110.677 kg 110.677 kg Intake: Intake, IV Titration 500 1350 1200 Amount Anidulafungin 100 mg In 100 Sodium Chloride 0.9% 100 ml @ 84 mls/hr IVPB DAILY [facility] Rx#:[id number] Cefepime 2 gm In Sodium 50 Chloride 0.9% 50 ml @ 100 mls/hr IVPB Q8HR [facility] Rx# :[id number] Sodium Chloride 0.9% 1, 1200 1200 000 ml @ 150 mls/hr IV . Q6H40M [facility] Rx#:[id number] Vancomycin 2,000 mg In 500 Sodium Chloride 0.9% 500 ml 500 ml @ 167 mls/hr IVPB Q12H [facility] Rx#: [id number] Oral 222 Blood Product 650 203 Platelet Irr Pheresis 2 203 Acda Unit [id number] Platelet Irr Pheresis 0 Acda1 Unit [id number] Rc Irr As1 Unit 0 [id number] Rc Irr As1 Unit 0 [id number] Other: Voiding Method Toilet # Voids 1 - Exam PHYSICAL EXAMINATION: GENERAL: The patient is alert and oriented x3, not in any acute distress. Well developed, well nourished. HEENT: Pupils are round and equally reacting to light. EOMI. No scleral icterus. No conjunctival pallor. Normocephalic, atraumatic. Patient has thrush in the posterior pharynx with significant redness in the posterior pharynx CARDIOVASCULAR: S1 and S2 present. No murmurs, rubs, or gallops. PULMONARY: Chest is clear to auscultation, no wheezing or crackles. ABDOMEN: Soft, nontender, nondistended, normoactive bowel sounds. No palpable organomegaly. MUSCULOSKELETAL: No joint swelling or deformity. EXTREMITIES: No cyanosis, clubbing, or pedal edema. NEUROLOGICAL: Gross neurological examination did not reveal any focal deficits. SKIN: No rashes. - Labs CBC & Chem 7: 05/31/18 08:34 05/31/18 08:34 Labs: Abnormal Lab Results - Last 24 Hours (Table) 05/30/18 05/30/18 05/31/18 Range/Units 10:20 12:00 07:08 WBC (3.8-10.6) k/uL RBC (3.80-5.40) m/uL Hgb (11.4-16.0) gm/dL Hct (34.0-46.0) % RDW (11.5-15.5) % Plt Count (150-450) k/uL Chloride (98-107) mmol/L Glucose (74-99) mg/dL POC Glucose (mg/dL) 150 H (75-99) mg/dL Hemoglobin A1c 7.5 H (4.0-6.0) % Crossmatch See Detail 05/31/18 05/31/18 05/31/18 Range/Units 08:34 08:34 11:00 WBC 0.2 L* (3.8-10.6) k/uL RBC 2.09 L (3.80-5.40) m/uL Hgb 6.4 L* (11.4-16.0) gm/dL Hct 18.4 L* (34.0-46.0) % RDW 16.1 H (11.5-15.5) % Plt Count 9 L* (150-450) k/uL Chloride 108 H (98-107) mmol/L Glucose 165 H (74-99) mg/dL POC Glucose (mg/dL) 165 H (75-99) mg/dL Hemoglobin A1c (4.0-6.0) % Crossmatch Microbiology - Last 24 Hours (Table) 05/30/18 09:40 Urine Culture - Final Urine,Voided 05/30/18 09:05 Blood Culture - Preliminary Blood No Growth after 24 hours 05/30/18 09:05 Group A Strep Throat Culture - Preliminary Throat Assessment and Plan Plan: -Febrile neutropenia and sepsis: Source of sepsis probably related to severe bronchitis and pharyngitis, patient has significant fungal pharyngitis maybe esophagitis leading to odynophagia patient is an above-mentioned antibiotics -Pancytopenia secondary to AML chemotherapy, patient is on prophylactic acyclovir and fluconazole to moderate 1 unit of PRBC transfusion which need to be irradiated -Asthma without any acute exacerbation -Type 2 diabetes mellitus -Gastroesophageal reflux disease - hyperlipidemia -Hypertension -hypothyroidism -Acute myeloid leukemia with recent chemo therapy into pancytopenia, did not receive any coronary relating factor. Recently received blood transfusion and platelet transfusion
[2018-05-31 17:19] LABS: Glucose,Whole Blood 126 mg/dL (75-99)
--- NOTE | 2018-05-31 19:10 | P.PN ---
Subjective Progress Note Date: 05/31/18 Principal diagnosis: Febrile neutropenia Pancytopenia due to chemotherapy Dehydration Shae esophagitis Continues to have throat and chest pain with by mouth intake. Continues to be pancytopenic. Another unit of blood and platelets were transfused today. Has been afebrile today. Nausea with minimal vomiting. No diarrhea. Objective - Vital Signs Vital signs: Vital Signs Temp 98.6 F 05/31/18 16:10 Pulse 81 05/31/18 16:10 Resp 18 05/31/18 16:10 BP 124/71 05/31/18 16:10 Pulse Ox 93 L 05/31/18 16:10 Intake & Output 05/30/18 05/31/18 05/31/18 18:59 06:59 18:59 Intake Total 722 1999 1712 Balance 722 1999 1712 Weight 120.202 kg 110.677 kg 110.677 kg Intake: Intake, IV Titration 500 1350 1200 Amount Anidulafungin 100 mg In 100 Sodium Chloride 0.9% 100 ml @ 84 mls/hr IVPB DAILY [facility] Rx#:[id number] Cefepime 2 gm In Sodium 50 Chloride 0.9% 50 ml @ 100 mls/hr IVPB Q8HR [facility] Rx# :[id number] Sodium Chloride 0.9% 1, 1200 1200 000 ml @ 150 mls/hr IV . Q6H40M [facility] Rx#:[id number] Vancomycin 2,000 mg In 500 Sodium Chloride 0.9% 500 ml 500 ml @ 167 mls/hr IVPB Q12H [facility] Rx#: [id number] Oral 222 Blood Product 650 513 Platelet Irr Pheresis 2 203 Acda Unit [id number] Platelet Irr Pheresis 0 Acda1 Unit [id number] Rc Irr As1 Unit 0 [id number] Rc Irr As1 Unit 310 [id number] Other: Voiding Method Toilet # Voids 1 - Exam General: In no acute distress. HEENT: Conjunctival pallor. No scleral icterus. Mucosa moist with mucositis and thrush. Neck: Neck supple. Lymph: No cervical/supraclavicular LAD. Lungs: CTA-B without wheezing or rhonchi. Heart: RRR. No LE edema. Abdomen: Soft, nontender, nondistended, with positive bowel sounds. MSK: 4/4 strength in all 4 extremities. Neuro: Alert and oriented 3. No obvious gross neurologic deficits. Skin: No jaundice or rash. Psych: Appropriate affect. - Labs CBC & Chem 7: 05/31/18 08:34 05/31/18 08:34 Labs: Abnormal Lab Results - Last 24 Hours (Table) 05/30/18 05/30/18 05/31/18 Range/Units 10:20 12:00 07:08 WBC (3.8-10.6) k/uL RBC (3.80-5.40) m/uL Hgb (11.4-16.0) gm/dL Hct (34.0-46.0) % RDW (11.5-15.5) % Plt Count (150-450) k/uL Chloride (98-107) mmol/L Glucose (74-99) mg/dL POC Glucose (mg/dL) 150 H (75-99) mg/dL Hemoglobin A1c 7.5 H (4.0-6.0) % Crossmatch See Detail 05/31/18 05/31/18 05/31/18 Range/Units 08:34 08:34 11:00 WBC 0.2 L* (3.8-10.6) k/uL RBC 2.09 L (3.80-5.40) m/uL Hgb 6.4 L* (11.4-16.0) gm/dL Hct 18.4 L* (34.0-46.0) % RDW 16.1 H (11.5-15.5) % Plt Count 9 L* (150-450) k/uL Chloride 108 H (98-107) mmol/L Glucose 165 H (74-99) mg/dL POC Glucose (mg/dL) 165 H (75-99) mg/dL Hemoglobin A1c (4.0-6.0) % Crossmatch 05/31/18 Range/Units 17:18 WBC (3.8-10.6) k/uL RBC (3.80-5.40) m/uL Hgb (11.4-16.0) gm/dL Hct (34.0-46.0) % RDW (11.5-15.5) % Plt Count (150-450) k/uL Chloride (98-107) mmol/L Glucose (74-99) mg/dL POC Glucose (mg/dL) 126 H (75-99) mg/dL Hemoglobin A1c (4.0-6.0) % Crossmatch Microbiology - Last 24 Hours (Table) 05/30/18 13:45 Blood Culture - Preliminary Blood No Growth after 24 hours 05/30/18 09:40 Urine Culture - Final Urine,Voided 05/30/18 09:05 Blood Culture - Preliminary Blood No Growth after 24 hours 05/30/18 09:05 Group A Strep Throat Culture - Preliminary Throat Assessment and Plan Assessment: 1. Febrile neutropenia 2. Pancytopenia due to chemotherapy 3. Shae esophagitis 4. Intractable vomiting 5. Dehydration Plan: Ms. Brunner is a very pleasant 53-year-old female with history of AML status post induction chemotherapy followed by consolidation with [facility], here for increased weakness and throat pain. Found to be pancytopenic due to chemotherapy. Neutropenic and febrile overnight. Found to have significant oral thrush with difficulty swallowing and chest pain when she swallows. On broad-spectrum IV antibiotics and antifungals. Continue antimicrobials. Continue to monitor daily CBCs with supportive transfusions to maintain hemoglobin above 7 and platelets above 15 with irradiated blood products. Continue supportive measures. Discussed with patient and she is agreeable to the plan. All of her questions were answered.
[2018-05-31 20:22] LABS: Glucose,Whole Blood 126 mg/dL (75-99)
[2018-05-31] MEDS: MONTELUKAST 10 MG TAB PO SCH (21:35)
--- NOTE | 2018-06-01 00:10 | PN ---
PROGRESS NOTE DATE OF SERVICE: 05/31/2018. REASON FOR FOLLOWUP: Oral thrush and febrile neutropenia. INTERVAL HISTORY: The patient did have fever this morning of 102.4 degrees Fahrenheit, however, the patient has been afebrile afterward. The patient's main symptoms remains to be oral thrush and some difficulty swallowing. Denies significant chest pain or cough. No nausea, no vomiting. No abdominal pain no diarrhea. EXAMINATION: Blood pressure 125/74 with a pulse of 89, temperature 99.2. T-max is 102, she is 95% on room air. General description is a middle-aged female up in the chair in no distress. HEENT: Shows extensive oral thrush lungs unlabored breathing. Clear to auscultation. No wheeze or crackles. Heart S1, S2. Regular rate and rhythm. Abdomen soft, no tenderness. LABS: Hemoglobin 6.4/2.2 with a BUN of 8, creatinine 0.60. Blood culture has been negative so far. DIAGNOSTIC IMPRESSION AND PLAN: Patient admitted to the hospital with febrile neutropenia. The patient did have extensive oral thrush, but no other clinical focus of infection. Lungs were clear to auscultation. Urine was negative. No evidence of cellulitis. Patient currently covered with cefepime. nystatin swish and swallow. We will continue while watching her clinical course closely. Continue supportive care. MMODL / IJN: [id number] /
[2018-06-01] MEDS: ACETAMINOPHEN TAB 325 MG TAB PO PRN (04:29)
[2018-06-01] MEDS: SODIUM CHLORIDE 0.9% 1,000 ML IV SCH (06:05)
[2018-06-01 07:15] LABS: Glucose,Whole Blood 134 mg/dL (75-99)
[2018-06-01 08:07] LABS: Anisocytosis Slight; MCH 30.7 pg (25.0-35.0); MCHC 34.2 g/dL (31.0-37.0); MCV 89.6 fL (80.0-100.0); Mean Platelet Volume 8.2; RBC 2.11 m/uL (3.80-5.40); RDW 16.6 % (11.5-15.5)
[2018-06-01 08:18] LABS: Anion Gap 9 mmol/L; Blood Urea Nitrogen 7 mg/dL (7-17); Calcium 8.5 mg/dL (8.4-10.2); Carbon Dioxide 21 mmol/L (22-30); Chloride 109 mmol/L (98-107); Glucose 119 mg/dL (74-99); HGB 6.5 gm/dL (11.4-16.0); Potassium 3.7 mmol/L (3.5-5.1); Sodium 139 mmol/L (137-145); WBC 0.4 k/uL (3.8-10.6)
[2018-06-01 08:19] LABS: HCT 18.9 % (34.0-46.0); Platelet Count 12 k/uL (150-450)
[2018-06-01] MEDS: CEFEPIME 2 GM in SODIUM CHLORIDE 0.9% 50 ML IVPB SCH ×3 (08:39→23:45)
[2018-06-01] MEDS: SYMBICORT 160-4.5 MCG INHALER INHALATION SCH ×2 (08:55→20:21)
[2018-06-01] MEDS: MAG HYDROX/AL HYDROX/SIMETH 30 ML, diphenhydrAMINE ELIXIR 75 MG, LIDOCAINE VISCOUS 30 ML PO SCH ×9 (08:55→23:16)
[2018-06-01] MEDS: NYSTATIN 100,000 UNIT/ML SUSP 500,000 UNIT/5 ML CUP PO SCH ×4 (08:58→23:16)
[2018-06-01] MEDS: LORATADINE 10 MG TAB PO SCH (09:05)
[2018-06-01] MEDS: ACYCLOVIR 200 MG CAP PO SCH ×2 (09:05→19:45)
[2018-06-01] MEDS: ATORVASTATIN 20 MG TAB PO SCH (09:06)
[2018-06-01] MEDS: ESCITALOPRAM 10 MG TAB PO SCH (09:06)
[2018-06-01] MEDS: METOPROLOL TARTRATE 50 MG TAB PO SCH ×2 (09:07→23:15)
[2018-06-01] MEDS: PANTOPRAZOLE 40 MG TABLET PO SCH ×2 (09:07→16:15)
[2018-06-01 11:02] LABS: Glucose,Whole Blood 145 mg/dL (75-99)
[2018-06-01] MEDS: ANIDULAFUNGIN 100 MG in SODIUM CHLORIDE 0.9% 100 ML IVPB SCH (11:43)
[2018-06-01] MEDS: CALCIUM CARB-VIT D 500MG-200UN 1 EACH TAB PO SCH (11:45)
--- NOTE | 2018-06-01 11:53 | P.PN ---
Subjective Progress Note Date: 06/01/18 Principal diagnosis: Febrile neutropenia Pancytopenia due to chemotherapy, requiring blood and platelet transfusion Dehydration Shae esophagitis Continues to have throat and chest pain with by mouth intake. Continues to be pancytopenic. Another unit of blood ordered today. Plts 12 without evidence of bleeding. Remains afebrile today. Nausea with minimal vomiting. No diarrhea. Objective - Vital Signs Vital signs: Vital Signs Temp 101.5 F H 06/01/18 06:10 Pulse 106 H 06/01/18 05:00 Resp 17 05/31/18 21:00 BP 124/69 06/01/18 05:00 Pulse Ox 92 L 06/01/18 05:00 Intake & Output 05/31/18 06/01/18 06/01/18 18:59 06:59 18:59 Intake Total 1713 Balance 1713 Weight 110.677 kg 110 kg Intake: Intake, IV Titration 1200 Amount Sodium Chloride 0.9% 1, 1200 000 ml @ 150 mls/hr IV . Q6H40M [facility] Rx#:[id number] Blood Product 513 Platelet Irr Pheresis 2 203 Acda Unit [id number] Rc Irr As1 Unit 310 [id number] Other: Voiding Method Toilet # Voids 2 - Exam General: In no acute distress. HEENT: Conjunctival pallor. No scleral icterus. Mucosa moist with mucositis and thrush. Neck: Neck supple. Lymph: No cervical/supraclavicular LAD. Lungs: CTA-B without wheezing or rhonchi. Heart: RRR. No LE edema. Abdomen: Soft, nontender, nondistended, with positive bowel sounds. MSK: 4/4 strength in all 4 extremities. Neuro: Alert and oriented 3. No obvious gross neurologic deficits. Skin: No jaundice or rash. Psych: Appropriate affect. - Labs CBC & Chem 7: 06/01/18 07:16 06/01/18 07:16 Labs: Abnormal Lab Results - Last 24 Hours (Table) 05/30/18 05/30/18 05/31/18 Range/Units 10:20 12:00 11:00 WBC (3.8-10.6) k/uL RBC (3.80-5.40) m/uL Hgb (11.4-16.0) gm/dL Hct (34.0-46.0) % RDW (11.5-15.5) % Plt Count (150-450) k/uL Chloride (98-107) mmol/L Carbon Dioxide (22-30) mmol/L Glucose (74-99) mg/dL POC Glucose (mg/dL) 165 H (75-99) mg/dL Hemoglobin A1c 7.5 H (4.0-6.0) % Crossmatch See Detail 05/31/18 05/31/18 06/01/18 Range/Units 17:18 20:10 07:12 WBC (3.8-10.6) k/uL RBC (3.80-5.40) m/uL Hgb (11.4-16.0) gm/dL Hct (34.0-46.0) % RDW (11.5-15.5) % Plt Count (150-450) k/uL Chloride (98-107) mmol/L Carbon Dioxide (22-30) mmol/L Glucose (74-99) mg/dL POC Glucose (mg/dL) 126 H 126 H 134 H (75-99) mg/dL Hemoglobin A1c (4.0-6.0) % Crossmatch 06/01/18 06/01/18 Range/Units 07:16 07:16 WBC 0.4 L* (3.8-10.6) k/uL RBC 2.11 L (3.80-5.40) m/uL Hgb 6.5 L* (11.4-16.0) gm/dL Hct 18.9 L* (34.0-46.0) % RDW 16.6 H (11.5-15.5) % Plt Count 12 L* (150-450) k/uL Chloride 109 H (98-107) mmol/L Carbon Dioxide 21 L (22-30) mmol/L Glucose 119 H (74-99) mg/dL POC Glucose (mg/dL) (75-99) mg/dL Hemoglobin A1c (4.0-6.0) % Crossmatch Microbiology - Last 24 Hours (Table) 05/30/18 13:45 Blood Culture - Preliminary Blood No Growth after 24 hours 05/30/18 09:40 Urine Culture - Final Urine,Voided 05/30/18 09:05 Blood Culture - Preliminary Blood No Growth after 24 hours Assessment and Plan Assessment: 1. Febrile neutropenia 2. Pancytopenia due to chemotherapy 3. Shae esophagitis 4. Intractable vomiting 5. Dehydration Plan: Ms. Brunner is a very pleasant 53-year-old female with history of AML status post induction chemotherapy followed by consolidation with [facility], here for increased weakness and throat pain. Found to be pancytopenic due to chemotherapy. Neutropenic and febrile. Continues to be febrile, this am, with slowly improving neutropenia. Found to have significant oral thrush with difficulty swallowing and chest pain when she swallows. On broad-spectrum IV antibiotics with cefepime and antifungals. Continue antimicrobials and consider adding gram positive coverage if pt remains febrile; defer to ID, who are following pt. Continue to monitor daily CBCs with supportive transfusions to maintain hemoglobin above 7 and platelets above 10 with irradiated blood products. pRBC unit today. Neutropenia slowly improving. Continue supportive measures. Discussed with patient and she is agreeable to the plan. All of her questions were answered.
--- NOTE | 2018-06-01 14:59 | P.PN ---
Subjective 52-year-old female admitted for febrile neutropenia patient received chemotherapy for acute myeloid leukemia patient hemoglobin is quite low is receiving irradiated PRBC transfusion. Patient probably is presently on cefepime, anidulafungin, and acyclovir patient can use to have odynophagia unable to take anything by mouth by mouth medications will be switched to oral 06/01/2018 This is still having episodes of fever although better. Her dysphagia is better but still has some odynophagia Constitutional: Denied any fatigue denied any fever. Cardio vascular: denied any chest pain, palpitations Gastrointestinal as mentioned in HPI odynophagia and vomiting. Pulmonary: Denied any shortness of breath cough Neurologic denied any new focal deficits All inpatient medications were reviewed and appropriate changes in these medications as dictated in the interval history and assessment and plan. Objective - Vital Signs Vital signs: Vital Signs Temp 98.9 F 06/01/18 11:49 Pulse 80 06/01/18 11:49 Resp 20 06/01/18 11:49 BP 124/77 06/01/18 11:49 Pulse Ox 93 L 06/01/18 11:49 Intake & Output 05/31/18 06/01/18 06/01/18 18:59 06:59 18:59 Intake Total 1713 Balance 1713 Weight 110.677 kg 110 kg Intake: Intake, IV Titration 1200 Amount Sodium Chloride 0.9% 1, 1200 000 ml @ 150 mls/hr IV . Q6H40M [facility] Rx#:[id number] Blood Product 513 Platelet Irr Pheresis 2 203 Acda Unit [id number] Rc Irr As1 Unit 310 [id number] Other: Voiding Method Toilet # Voids 2 - Exam PHYSICAL EXAMINATION: GENERAL: The patient is alert and oriented x3, not in any acute distress. Well developed, well nourished. HEENT: Pupils are round and equally reacting to light. EOMI. No scleral icterus. No conjunctival pallor. Normocephalic, atraumatic. Patient has thrush in the posterior pharynx with significant redness in the posterior pharynx CARDIOVASCULAR: S1 and S2 present. No murmurs, rubs, or gallops. PULMONARY: Chest is clear to auscultation, no wheezing or crackles. ABDOMEN: Soft, nontender, nondistended, normoactive bowel sounds. No palpable organomegaly. MUSCULOSKELETAL: No joint swelling or deformity. EXTREMITIES: No cyanosis, clubbing, or pedal edema. NEUROLOGICAL: Gross neurological examination did not reveal any focal deficits. SKIN: No rashes. - Labs CBC & Chem 7: 18 07:16 18 07:16 Labs: Abnormal Lab Results - Last 24 Hours (Table) 05/30/18 05/31/18 05/31/18 Range/Units 12:00 17:18 20:10 WBC (3.8-10.6) k/uL RBC (3.80-5.40) m/uL Hgb (11.4-16.0) gm/dL Hct (34.0-46.0) % RDW (11.5-15.5) % Plt Count (150-450) k/uL Chloride (98-107) mmol/L Carbon Dioxide (22-30) mmol/L Glucose (74-99) mg/dL POC Glucose (mg/dL) 126 H 126 H (75-99) mg/dL Crossmatch See Detail 06/01/18 06/01/18 06/01/18 Range/Units 07:12 07:16 07:16 WBC 0.4 L* (3.8-10.6) k/uL RBC 2.11 L (3.80-5.40) m/uL Hgb 6.5 L* (11.4-16.0) gm/dL Hct 18.9 L* (34.0-46.0) % RDW 16.6 H (11.5-15.5) % Plt Count 12 L* (150-450) k/uL Chloride 109 H (98-107) mmol/L Carbon Dioxide 21 L (22-30) mmol/L Glucose 119 H (74-99) mg/dL POC Glucose (mg/dL) 134 H (75-99) mg/dL Crossmatch 06/01/18 Range/Units 10:58 WBC (3.8-10.6) k/uL RBC (3.80-5.40) m/uL Hgb (11.4-16.0) gm/dL Hct (34.0-46.0) % RDW (11.5-15.5) % Plt Count (150-450) k/uL Chloride (98-107) mmol/L Carbon Dioxide (22-30) mmol/L Glucose (74-99) mg/dL POC Glucose (mg/dL) 145 H (75-99) mg/dL Crossmatch Microbiology - Last 24 Hours (Table) 05/30/18 09:05 Group A Strep Throat Culture - Final Throat 05/30/18 09:05 Blood Culture - Preliminary Blood No Growth after 48 hours 05/30/18 13:45 Blood Culture - Preliminary Blood No Growth after 24 hours 05/30/18 09:40 Urine Culture - Final Urine,Voided Assessment and Plan Plan: -Febrile neutropenia and sepsis: Source of sepsis probably related to severe bronchitis and pharyngitis, patient has significant fungal pharyngitis maybe esophagitis leading to odynophagia patient is an above-mentioned antibiotics -Pancytopenia secondary to AML chemotherapy, patient is on prophylactic acyclovir and fluconazolepatient is receiving one more unit of blood transfusion today, that'll make it 2 units of blood transfusion during this hospital physician -Asthma without any acute exacerbation -Type 2 diabetes mellitus -Gastroesophageal reflux disease - hyperlipidemia -Hypertension -hypothyroidism -Acute myeloid leukemia with recent chemo therapy into pancytopenia, did not receive any coronary relating factor. Recently received blood transfusion and platelet transfusion
[2018-06-01] MEDS: LEVOTHYROXINE 125 MCG TAB PO SCH (16:13)
[2018-06-01] MEDS: FERROUS SULFATE 325 MG TAB PO SCH (16:15)
[2018-06-01 16:52] LABS: Glucose,Whole Blood 124 mg/dL (75-99)
[2018-06-01] MEDS ORDERED: diphenhydrAMINE 50 MG/ML 1 ML VIAL IVP STA (17:51)
[2018-06-01] MEDS ORDERED: ACETAMINOPHEN TAB 325 MG TAB PO STA (17:52)
[2018-06-01] MEDS: MONTELUKAST 10 MG TAB PO SCH (19:45)
[2018-06-01 20:27] LABS: Glucose,Whole Blood 116 mg/dL (75-99)
--- NOTE | 2018-06-01 22:44 | PN ---
PROGRESS NOTE DATE OF SERVICE: 06/01/2018 REASON FOR FOLLOWUP: 1. Febrile neutropenia. 2. Oral thrush. INTERVAL HISTORY: The patient did have another fever today of 102 degrees Fahrenheit early this morning. The patient has been afebrile since then. Still complaining of feeling weak and tired as the patient did not have a good night's sleep. No nausea, no vomiting. Still having complaining of sore throat and difficulty swallowing and no diarrhea. PHYSICAL EXAMINATION: Blood pressure 116/62 with a pulse of 87, temperature 100, she is 97% on room air. General description is a middle-aged female lying in bed in no distress. HEENT examination: Pallor. Oral mucous membranes dry. Thrush is slightly decreased in intensity. Lungs unlabored breathing. Clear to auscultation anteriorly. Heart S1, S2. Regular rate and rhythm. Abdomen soft. No tenderness. Extremities: No edema of the feet. LABS: Hemoglobin 6.5, white count 0.4, platelet count is 12 with a BUN of 7, creatinine 0.61. Culture has been negative so far. DIAGNOSTIC IMPRESSION AND PLAN: Patient admitted to the hospital with febrile neutropenia. Patient did have extensive thrush. He is currently being treated with and nystatin swish and swallow in addition for febrile neutropenia that should be continued for now while waiting for the culture to finalize. Continue supportive care. MMODL / IJN: [id number] /
[2018-06-02] MEDS: ACETAMINOPHEN TAB 325 MG TAB PO PRN ×3 (04:50→22:01)
[2018-06-02] MEDS: SODIUM CHLORIDE 0.9% 1,000 ML IV SCH ×6 (05:09→22:01)
[2018-06-02] MEDS: LEVOTHYROXINE 125 MCG TAB PO SCH (06:04)
[2018-06-02 06:05] LABS: HCT 21.2 % (34.0-46.0); HGB 7.3 gm/dL (11.4-16.0); MCH 31.1 pg (25.0-35.0); MCHC 34.7 g/dL (31.0-37.0); MCV 89.8 fL (80.0-100.0); Mean Platelet Volume 12.7; RBC 2.36 m/uL (3.80-5.40); RDW 15.5 % (11.5-15.5)
[2018-06-02 06:17] LABS: ALT 28 U/L (9-52); AST 20 U/L (14-36); Albumin 3.4 g/dL (3.5-5.0); Alkaline Phosphatase 109 U/L (38-126); Anion Gap 9 mmol/L; Blood Urea Nitrogen 9 mg/dL (7-17); Calcium 8.9 mg/dL (8.4-10.2); Carbon Dioxide 21 mmol/L (22-30); Chloride 108 mmol/L (98-107); Glucose 137 mg/dL (74-99); Magnesium 1.3 mg/dL (1.6-2.3); Potassium 3.6 mmol/L (3.5-5.1); Sodium 138 mmol/L (137-145); Total Bilirubin 2.1 mg/dL (0.2-1.3); Total Protein 6.4 g/dL (6.3-8.2); WBC 0.6 k/uL (3.8-10.6)
[2018-06-02 06:18] LABS: Platelet Count 7 k/uL (150-450)
[2018-06-02 06:58] LABS: Glucose,Whole Blood 149 mg/dL (75-99)
[2018-06-02] MEDS: ESCITALOPRAM 10 MG TAB PO SCH (08:02)
[2018-06-02] MEDS: MAG HYDROX/AL HYDROX/SIMETH 30 ML, diphenhydrAMINE ELIXIR 75 MG, LIDOCAINE VISCOUS 30 ML PO SCH ×9 (08:02→22:02)
[2018-06-02] MEDS: LORATADINE 10 MG TAB PO SCH (08:02)
[2018-06-02] MEDS: NYSTATIN 100,000 UNIT/ML SUSP 500,000 UNIT/5 ML CUP PO SCH ×4 (08:02→22:02)
[2018-06-02] MEDS: ATORVASTATIN 20 MG TAB PO SCH (08:03)
[2018-06-02] MEDS: PANTOPRAZOLE 40 MG TABLET PO SCH ×2 (08:03→16:32)
[2018-06-02] MEDS: CEFEPIME 2 GM in SODIUM CHLORIDE 0.9% 50 ML IVPB SCH ×3 (08:03→23:52)
[2018-06-02] MEDS: ACYCLOVIR 200 MG CAP PO SCH ×2 (08:03→22:01)
[2018-06-02] MEDS: METOPROLOL TARTRATE 50 MG TAB PO SCH ×2 (08:03→22:02)
[2018-06-02] MEDS: SYMBICORT 160-4.5 MCG INHALER INHALATION SCH ×2 (08:07→20:17)
[2018-06-02] MEDS: ANIDULAFUNGIN 100 MG in SODIUM CHLORIDE 0.9% 100 ML IVPB SCH (08:45)
[2018-06-02 11:32] LABS: Glucose,Whole Blood 138 mg/dL (75-99)
[2018-06-02] MEDS: CALCIUM CARB-VIT D 500MG-200UN 1 EACH TAB PO SCH ×2 (13:00→13:01)
[2018-06-02] MEDS: FERROUS SULFATE 325 MG TAB PO SCH (13:00)
[2018-06-02] MEDS: MAGNESIUM OXIDE 400 MG TAB PO SCH (13:55)
[2018-06-02] MEDS: MAGNESIUM SULFATE-D5W PMX 1 GM in DEXTROSE/WATER 1 100ML.BAG IVPB SCH ×2 (13:55→14:59)
[2018-06-02 14:21] VITALS: BMI 46.4
--- NOTE | 2018-06-02 15:50 | P.PN ---
Subjective Progress Note Date: 06/02/18 Progress note being dictated for Dr. Sharma. Interval history:52-year-old female admitted for febrile neutropenia patient received chemotherapy for acute myeloid leukemia patient hemoglobin is quite low is receiving irradiated PRBC transfusion. Patient probably is presently on cefepime, anidulafungin, and acyclovir patient can use to have odynophagia unable to take anything by mouth by mouth medications will be switched to oral 06/01/2018 This is still having episodes of fever although better. Her dysphagia is better but still has some odynophagia 06/02/2018 complaints of sore throat, currently on Sam's solution. Platelet 7 , without evidence of bleeding, platelet transfusion pending. Currently afebrile ,T-max 103. WBC 0.6. Transfused yesterday packed RBCs, Hemoglobin 7.3. Consumed 50% of lunch. Appears confused at times. Maintained on IV antibiotics, antifungals as per infectious disease. Continues on IV fluid hydration. Denies chest pain, palpitations or shortness of breath. Constitutional: reports fever, sore throat Cardio vascular: denied any chest pain, palpitations Gastrointestinal : no N/V/D. no abdominal pain Pulmonary: Denied any shortness of breath cough Neurologic denied any new focal deficits Active Medications Acetaminophen (Tylenol Tab) 650 mg PO Q6HR PRN PRN Reason: Fever and/ or Pain Last Admin: 06/02/18 04:50 Dose: 650 mg Acyclovir (Zovirax) 400 mg PO BID [facility] Last Admin: 06/02/18 08:03 Dose: 400 mg Albuterol/Ipratropium (Duoneb 0.5 Mg-3 Mg/3 Ml Soln) 3 ml INHALATION RT-QID PRN PRN Reason: Shortness Of Breath Atorvastatin Calcium (Lipitor) 20 mg PO DAILY [facility] Last Admin: 06/02/18 08:03 Dose: 20 mg Budesonide/Formoterol Fumarate (Symbicort 160-4.5 Mcg Inhaler) 2 puff INHALATION RT-BID [facility] Last Admin: 06/02/18 08:07 Dose: Not Given Calcium Carbonate (Oscal 500+D) 1 each PO 1200 [facility] Last Admin: 06/02/18 13:01 Dose: Not Given Al Hydroxide/Mg Hydroxide 30 ml/ Diphenhydramine HCl 75 mg/Lidocaine HCl 30 ml 0 ml PO TID [facility] Last Admin: 06/02/18 08:02 Dose: 5 ml Al Hydroxide/Mg Hydroxide 30 ml/ Diphenhydramine HCl 75 mg/Lidocaine HCl 30 ml 0 ml PO DAILY PRN PRN Reason: severe oral pain Escitalopram Oxalate (Lexapro) 30 mg PO QAM [facility] Last Admin: 06/02/18 08:02 Dose: 30 mg Ferrous Sulfate (Feosol) 325 mg PO 1200 [facility] Last Admin: 06/02/18 13:00 Dose: 325 mg Cefepime HCl 2 gm/ Sodium (Chloride) 50 mls @ 100 mls/hr IVPB Q8HR [facility] Last Admin: 06/02/18 08:03 Dose: 100 mls/hr Sodium Chloride (Saline 0.9%) 1,000 mls @ 150 mls/hr IV .Q6H40M [facility] Last Admin: 06/02/18 13:04 Dose: 150 mls/hr Anidulafungin 100 mg/ Sodium (Chloride) 100 mls @ 84 mls/hr IVPB DAILY [facility] Last Admin: 06/02/18 08:45 Dose: 84 mls/hr Magnesium Sulfate/Dextrose 1 (gm/ IV Solution) 100 mls @ 100 mls/hr IVPB Q1H [facility] Stop: 06/02/18 15:59 Last Admin: 06/02/18 14:59 Dose: 100 mls/hr Levothyroxine Sodium (Synthroid) 125 mcg PO 0630 [facility] Last Admin: 06/02/18 06:04 Dose: 125 mcg Loratadine (Claritin) 10 mg PO DAILY [facility] Last Admin: 06/02/18 08:02 Dose: 10 mg Magnesium Oxide (Mag-Ox) 400 mg PO DAILY [facility] Last Admin: 06/02/18 13:55 Dose: 400 mg Metoprolol Tartrate (Lopressor) 50 mg PO BID [facility] Last Admin: 06/02/18 08:03 Dose: 50 mg Montelukast Sodium (Singulair) 10 mg PO HS [facility] Last Admin: 06/01/18 19:45 Dose: 10 mg Nystatin (Mycostatin Oral Susp) 500,000 unit PO QID [facility] Last Admin: 06/02/18 13:00 Dose: 500,000 unit Ondansetron HCl (Zofran) 4 mg PO Q6HR PRN PRN Reason: Nausea Ondansetron HCl (Zofran) 4 mg IVP Q6HR PRN PRN Reason: Nausea And Vomiting Last Admin: 05/31/18 19:45 Dose: 4 mg Pantoprazole Sodium (Protonix) 40 mg PO AC-BID [facility] Last Admin: 06/02/18 08:03 Dose: 40 mg Trimethobenzamide HCl (Tigan) 100 mg IM Q6HR PRN PRN Reason: Nausea And Vomiting Last Admin: 05/31/18 09:46 Dose: 100 mg Zolpidem Tartrate (Ambien) 10 mg PO HS PRN PRN Reason: Insomnia Objective - Vital Signs Vital signs: Vital Signs Temp 98.1 F 06/02/18 12:03 Pulse 76 06/02/18 12:03 Resp 16 06/02/18 12:03 BP 124/72 06/02/18 12:03 Pulse Ox 95 06/02/18 12:03 Intake & Output 06/01/18 06/02/18 06/02/18 18:59 06:59 18:59 Intake Total 460 Balance 460 Weight 118.841 kg Intake: Intake, IV Titration 150 Amount Sodium Chloride 0.9% 1, 150 000 ml @ 150 mls/hr IV . Q6H40M [facility] Rx#:[id number] Blood Product 310 Rc Irr As3 Unit 310 [id number] Other: Voiding Method Toilet # Voids 2 - Exam GENERAL: The patient is sitting up in chair ,alert and oriented x3, not in any acute distress. Well developed, well nourished. HEENT: Pupils are round and equally reacting to light. EOMI. No scleral icterus. No conjunctival pallor. Normocephalic, atraumatic. Oral thrush CARDIOVASCULAR: S1 and S2 present. No murmurs, rubs, or gallops. PULMONARY: Chest is clear to auscultation, no wheezing or crackles. ABDOMEN: Soft, nontender, nondistended, normoactive bowel sounds. No palpable organomegaly. MUSCULOSKELETAL: No joint swelling or deformity. EXTREMITIES: No cyanosis, clubbing, or pedal edema. NEUROLOGICAL: Gross neurological examination did not reveal any focal deficits. SKIN: No rashes. Microbiology 05/30/18 09:05 Blood Blood Culture - Preliminary No Growth after 72 hours 05/30/18 13:45 Blood Blood Culture - Preliminary No Growth after 48 hours 05/30/18 09:05 Throat Group A Strep Throat Culture - Final 05/30/18 09:40 Urine,Voided Urine Culture - Final - Labs CBC & Chem 7: 06/02/18 05:46 06/02/18 05:46 Labs: Abnormal Lab Results - Last 24 Hours (Table) 05/30/18 06/01/18 06/01/18 Range/Units 12:00 16:49 20:26 WBC (3.8-10.6) k/uL RBC (3.80-5.40) m/uL Hgb (11.4-16.0) gm/dL Hct (34.0-46.0) % Plt Count (150-450) k/uL Chloride (98-107) mmol/L Carbon Dioxide (22-30) mmol/L Glucose (74-99) mg/dL POC Glucose (mg/dL) 124 H 116 H (75-99) mg/dL Magnesium (1.6-2.3) mg/dL Total Bilirubin (0.2-1.3) mg/dL Albumin (3.5-5.0) g/dL Crossmatch See Detail 06/02/18 06/02/18 06/02/18 Range/Units 05:46 05:46 06:57 WBC 0.6 L* (3.8-10.6) k/uL RBC 2.36 L (3.80-5.40) m/uL Hgb 7.3 L (11.4-16.0) gm/dL Hct 21.2 L (34.0-46.0) % Plt Count 7 L* (150-450) k/uL Chloride 108 H (98-107) mmol/L Carbon Dioxide 21 L (22-30) mmol/L Glucose 137 H (74-99) mg/dL POC Glucose (mg/dL) 149 H (75-99) mg/dL Magnesium 1.3 L (1.6-2.3) mg/dL Total Bilirubin 2.1 H (0.2-1.3) mg/dL Albumin 3.4 L (3.5-5.0) g/dL Crossmatch 06/02/18 Range/Units 11:31 WBC (3.8-10.6) k/uL RBC (3.80-5.40) m/uL Hgb (11.4-16.0) gm/dL Hct (34.0-46.0) % Plt Count (150-450) k/uL Chloride (98-107) mmol/L Carbon Dioxide (22-30) mmol/L Glucose (74-99) mg/dL POC Glucose (mg/dL) 138 H (75-99) mg/dL Magnesium (1.6-2.3) mg/dL Total Bilirubin (0.2-1.3) mg/dL Albumin (3.5-5.0) g/dL Crossmatch Microbiology - Last 24 Hours (Table) 05/30/18 09:05 Blood Culture - Preliminary Blood No Growth after 72 hours 05/30/18 13:45 Blood Culture - Preliminary Blood No Growth after 48 hours 05/30/18 09:05 Group A Strep Throat Culture - Final Throat Assessment and Plan Assessment: -Febrile neutropenia and sepsis, probably related to severe bronchitis and pharyngitis. patient has significant fungal pharyngitis maybe esophagitis leading to odynophagia. -Pancytopenia secondary to AML chemotherapy -Asthma without any acute exacerbation -Type 2 diabetes mellitus -Gastroesophageal reflux disease - hyperlipidemia -Hypertension -hypothyroidism -Hypomagnesemia Plan: Continue on current medication regime ,monitoring and symptomatic treatment. Magnesium supplements and daily magnesium ordered. cultures pending , close monitoring of electrolytes, CBC with repeat labs pending .aggressive pulmonary toileting .maintain supportive care. The impression and plan of care has been dictated as directed. : I performed a history and examination of this patient, discussed the same with the dictator. I agree with the dictator's note ,documented as a scribe. Any additional findings or plans will be noted.
[2018-06-02 16:44] LABS: Glucose,Whole Blood 149 mg/dL (75-99)
--- NOTE | 2018-06-02 18:21 | P.PN ---
Subjective Progress Note Date: 06/02/18 Principal diagnosis: febrile neutropenia Pt seen in f/u, 102.2F temp this AM. Pt is tired, mild/moderate oral irritation , no appetite but denies nausea, vomiting, she is SOB on exertion but comfortable at rest, no chest pain, abd pain, diarrhea, dysuria, bleeding or pain to report Objective - Vital Signs Vital signs: Vital Signs Temp 99.3 F 06/02/18 17:31 Pulse 87 06/02/18 17:31 Resp 16 06/02/18 17:31 BP 140/78 06/02/18 17:31 Pulse Ox 94 L 06/02/18 16:45 Intake & Output 06/01/18 06/02/18 06/02/18 18:59 06:59 18:59 Intake Total 460 1263 Balance 460 1263 Weight 118.841 kg Intake: Intake, IV Titration 150 1050 Amount Anidulafungin 100 mg In 100 Sodium Chloride 0.9% 100 ml @ 84 mls/hr IVPB DAILY [facility] Rx#:[id number] Cefepime 2 gm In Sodium 50 Chloride 0.9% 50 ml @ 100 mls/hr IVPB Q8HR [facility] Rx# :[id number] Sodium Chloride 0.9% 1, 150 900 000 ml @ 150 mls/hr IV . Q6H40M [facility] Rx#:[id number] Blood Product 310 213 Platelet Irr Pheresis 2 213 Acda Unit [id number] Rc Irr As3 Unit 310 [id number] Other: Voiding Method Toilet # Voids 2 4 - Constitutional General appearance: Present: cooperative, obese - EENT EENT Comment(s): mild thrush, reddened oral mucosa Eyes: Present: anicteric sclerae, EOMI ENT: Present: hearing grossly normal - Respiratory Respiratory: bilateral: CTA - Cardiovascular Heart sounds: normal: S1, S2 Abnormal Heart Sounds: Absent: systolic murmur, diastolic murmur, rub, S3 Gallop , S4 Gallop, click, other - Peripheral edema leg Peripheral Edema: bilateral: None - Gastrointestinal General gastrointestinal: Present: normal bowel sounds, soft. Absent: absent bowel sounds, decreased bowel sounds, distended, hepatomegaly, hyperactive bowel sounds, organomegaly, rigid, scaphoid, splenomegaly, tenderness, umbilical hernia, ventral hernia - Integumentary Integumentary: Present: pale - Neurologic Neurologic: Present: CNII-XII intact - Musculoskeletal Musculoskeletal: Present: generalized weakness, strength equal bilaterally - Psychiatric Psychiatric: Present: A&O x's 3, appropriate affect, intact judgment & insight - Labs CBC & Chem 7: 06/02/18 05:46 06/02/18 05:46 Labs: Abnormal Lab Results - Last 24 Hours (Table) 05/30/18 06/01/18 06/02/18 Range/Units 12:00 20:26 05:46 WBC (3.8-10.6) k/uL RBC (3.80-5.40) m/uL Hgb (11.4-16.0) gm/dL Hct (34.0-46.0) % Plt Count (150-450) k/uL Chloride 108 H (98-107) mmol/L Carbon Dioxide 21 L (22-30) mmol/L Glucose 137 H (74-99) mg/dL POC Glucose (mg/dL) 116 H (75-99) mg/dL Magnesium 1.3 L (1.6-2.3) mg/dL Total Bilirubin 2.1 H (0.2-1.3) mg/dL Albumin 3.4 L (3.5-5.0) g/dL Crossmatch See Detail 06/02/18 06/02/18 06/02/18 Range/Units 05:46 06:57 11:31 WBC 0.6 L* (3.8-10.6) k/uL RBC 2.36 L (3.80-5.40) m/uL Hgb 7.3 L (11.4-16.0) gm/dL Hct 21.2 L (34.0-46.0) % Plt Count 7 L* (150-450) k/uL Chloride (98-107) mmol/L Carbon Dioxide (22-30) mmol/L Glucose (74-99) mg/dL POC Glucose (mg/dL) 149 H 138 H (75-99) mg/dL Magnesium (1.6-2.3) mg/dL Total Bilirubin (0.2-1.3) mg/dL Albumin (3.5-5.0) g/dL Crossmatch 06/02/18 Range/Units 16:42 WBC (3.8-10.6) k/uL RBC (3.80-5.40) m/uL Hgb (11.4-16.0) gm/dL Hct (34.0-46.0) % Plt Count (150-450) k/uL Chloride (98-107) mmol/L Carbon Dioxide (22-30) mmol/L Glucose (74-99) mg/dL POC Glucose (mg/dL) 149 H (75-99) mg/dL Magnesium (1.6-2.3) mg/dL Total Bilirubin (0.2-1.3) mg/dL Albumin (3.5-5.0) g/dL Crossmatch Microbiology - Last 24 Hours (Table) 05/30/18 13:45 Blood Culture - Preliminary Blood No Growth after 72 hours 05/30/18 09:05 Blood Culture - Preliminary Blood No Growth after 72 hours Assessment and Plan (1) Febrile neutropenia Narrative/Plan: Cont to monitor VS Cult so far negative Empiric abx Current Visit: Yes Status: Acute Priority: High Code(s): D70.9 - NEUTROPENIA, UNSPECIFIED; R50.81 - FEVER PRESENTING WITH CONDITIONS CLASSIFIED ELSEWHERE SNOMED Code(s): 365826075 (2) Thrush of mouth and esophagus Narrative/Plan: cont oral treatments Current Visit: Yes Status: Acute Priority: High Code(s): B37.81 - CANDIDAL ESOPHAGITIS; B37.0 - CANDIDAL STOMATITIS SNOMED Code(s): 488066735 (3) Acute myeloid leukemia Narrative/Plan: Pt completed chemo recently. On f/u. Current Visit: No Status: Chronic Priority: Medium Code(s): C92.00 - ACUTE MYELOBLASTIC LEUKEMIA, NOT HAVING ACHIEVED REMISSION SNOMED Code(s): 23488764 (4) Pancytopenia due to antineoplastic chemotherapy Narrative/Plan: Irradiated platelets today for plt count 7,000 Hgb stable, no transfusion WBC actually up to 0.6 today! CBC daily Current Visit: Yes Status: Acute Priority: High Code(s): D61.810 - ANTINEOPLASTIC CHEMOTHERAPY INDUCED PANCYTOPENIA; T45.1X5A - ADVERSE EFFECT OF ANTINEOPLASTIC AND IMMUNOSUP DRUGS, INIT SNOMED Code(s): 915554292701460 Plan: Elevated LFTs-likely r/t shock liver form hypotension, monitor CMP daily
[2018-06-02 20:43] LABS: Glucose,Whole Blood 131 mg/dL (75-99)
[2018-06-02] MEDS: MONTELUKAST 10 MG TAB PO SCH (22:02)
--- NOTE | 2018-06-02 22:47 | P.PN ---
Subjective Progress Note Date: 06/02/18 53-year-old patient well-known to the service for Occasions of her AML. Presents to hospital with fever and leukopenia after being evaluated in the oncology office. She relates that she's been feeling somewhat poorly as of late related to the measures are round of chemotherapy. She mostly has been having difficulties with eating. She's had 3 days of difficulty in eating any foods because of pain in her pharynx difficulty with swallowing. She's had no significant nausea or emesis. No evidence of any bleeding. She's had some low- grade fever and she is definitely had some chills. She's had no skin rashes or she's had no diarrhea. She denying cough or sputum production. 06/02/2018 patient is feeling better. Having no further fevers. Still having some difficulty with swallowing solids but is doing much better with liquids. She has a protein supplement at her bedside. A cup of ice obtained and is mixed together. She finds it palatable and does not have significant pain with swallowing the thick cold solution. She is not having significant fever today. Continues to have significant pancytopenia with receiving platelets syndrome. Objective - Vital Signs Vital signs: Vital Signs Temp 99.3 F 06/02/18 17:31 Pulse 87 06/02/18 17:31 Resp 16 06/02/18 17:31 BP 140/78 06/02/18 17:31 Pulse Ox 94 L 06/02/18 16:45 Intake & Output 06/02/18 06/02/18 06/03/18 06:59 18:59 06:59 Intake Total 460 1263 Balance 460 1263 Weight 118.841 kg Intake: Intake, IV Titration 150 1050 Amount Anidulafungin 100 mg In 100 Sodium Chloride 0.9% 100 ml @ 84 mls/hr IVPB DAILY [facility] Rx#:[id number] Cefepime 2 gm In Sodium 50 Chloride 0.9% 50 ml @ 100 mls/hr IVPB Q8HR [facility] Rx# :[id number] Sodium Chloride 0.9% 1, 150 900 000 ml @ 150 mls/hr IV . Q6H40M [facility] Rx#:[id number] Blood Product 310 213 Platelet Irr Pheresis 2 213 Acda Unit [id number] Rc Irr As3 Unit 310 [id number] Other: Voiding Method Toilet # Voids 2 4 - Exam Pleasant 53-year-old woman who suffers from obesity but is comfortable at this time except for her difficulty with swallowing HEENT: Anicteric conjunctiva are pink and moist nasal mucosa grossly intact without significant lesions, there is some improvement of the thrush in the posterior pharynx and has tenderness. No significant open ulcerations or bleeding is seen Neck: The neck is supple without significant lymphadenopathy or thyromegaly. Lungs: Good bilateral air entry without significant crackles or wheezing. There is no significant bronchial sounds. There is no egophony or dullness. Heart: Regular rate and rhythm with an audible S1-S2, no S3 no S4. There is no significant murmur click or rub, PMI was nondisplaced. Abdomen: Obese, Positive bowel sounds soft and nontender without palpable masses or organomegaly. There was no guarding or rebound. Extremities: The upper extremities have excellent pulses they are symmetric, no significant petechiae or telangiectasia. No splinter hemorrhages were noted. The lower extremities are free from significant edema. The peripheral pulses were 2+ and symmetric. Neuro: Awake alert oriented to person place and time. There are no acute new gross focal sensory motor deficits. - Labs CBC & Chem 7: 06/02/18 05:46 06/02/18 05:46 Labs: Abnormal Lab Results - Last 24 Hours (Table) 05/30/18 06/02/18 06/02/18 Range/Units 12:00 05:46 05:46 WBC 0.6 L* (3.8-10.6) k/uL RBC 2.36 L (3.80-5.40) m/uL Hgb 7.3 L (11.4-16.0) gm/dL Hct 21.2 L (34.0-46.0) % Plt Count 7 L* (150-450) k/uL Chloride 108 H (98-107) mmol/L Carbon Dioxide 21 L (22-30) mmol/L Glucose 137 H (74-99) mg/dL POC Glucose (mg/dL) (75-99) mg/dL Magnesium 1.3 L (1.6-2.3) mg/dL Total Bilirubin 2.1 H (0.2-1.3) mg/dL Albumin 3.4 L (3.5-5.0) g/dL Crossmatch See Detail 06/02/18 06/02/18 06/02/18 Range/Units 06:57 11:31 16:42 WBC (3.8-10.6) k/uL RBC (3.80-5.40) m/uL Hgb (11.4-16.0) gm/dL Hct (34.0-46.0) % Plt Count (150-450) k/uL Chloride (98-107) mmol/L Carbon Dioxide (22-30) mmol/L Glucose (74-99) mg/dL POC Glucose (mg/dL) 149 H 138 H 149 H (75-99) mg/dL Magnesium (1.6-2.3) mg/dL Total Bilirubin (0.2-1.3) mg/dL Albumin (3.5-5.0) g/dL Crossmatch 06/02/18 Range/Units 20:42 WBC (3.8-10.6) k/uL RBC (3.80-5.40) m/uL Hgb (11.4-16.0) gm/dL Hct (34.0-46.0) % Plt Count (150-450) k/uL Chloride (98-107) mmol/L Carbon Dioxide (22-30) mmol/L Glucose (74-99) mg/dL POC Glucose (mg/dL) 131 H (75-99) mg/dL Magnesium (1.6-2.3) mg/dL Total Bilirubin (0.2-1.3) mg/dL Albumin (3.5-5.0) g/dL Crossmatch Microbiology - Last 24 Hours (Table) 05/30/18 13:45 Blood Culture - Preliminary Blood No Growth after 72 hours 05/30/18 09:05 Blood Culture - Preliminary Blood No Growth after 72 hours Laboratory Results WBC 0.6 k/uL (3.8-10.6) L* 06/02/18 05:46 RBC 2.36 m/uL (3.80-5.40) L 06/02/18 05:46 Hgb 7.3 gm/dL (11.4-16.0) L 06/02/18 05:46 Hct 21.2 % (34.0-46.0) L 06/02/18 05:46 MCV 89.8 fL (80.0-100.0) 06/02/18 05:46 MCH 31.1 pg (25.0-35.0) 06/02/18 05:46 MCHC 34.7 g/dL (31.0-37.0) 06/02/18 05:46 RDW 15.5 % (11.5-15.5) 06/02/18 05:46 Plt Count 7 k/uL (150-450) L* 06/02/18 05:46 Neutrophils # SHOEMAKER CUSTOM 06/01/18 07:16 Manual Slide Review Performed 06/02/18 05:46 Anisocytosis Slight 06/01/18 07:16 PT 10.9 sec (9.0-12.0) 05/30/18 09:05 INR 1.0 (<1.2) 05/30/18 09:05 APTT 19.6 sec (22.0-30.0) L 05/30/18 09:05 Sodium 138 mmol/L (137-145) 06/02/18 05:46 Potassium 3.6 mmol/L (3.5-5.1) 06/02/18 05:46 Chloride 108 mmol/L (98-107) H 06/02/18 05:46 Carbon Dioxide 21 mmol/L (22-30) L 06/02/18 05:46 Anion Gap 9 mmol/L 06/02/18 05:46 BUN 9 mg/dL (7-17) 06/02/18 05:46 Creatinine 0.65 mg/dL (0.52-1.04) 06/02/18 05:46 Est GFR (CKD-EPI)AfAm >90 (>60 ml/min/1.73 sqM) 06/02/18 05:46 Est GFR (CKD-EPI)NonAf >90 (>60 ml/min/1.73 sqM) 06/02/18 05:46 Glucose 137 mg/dL (74-99) H 06/02/18 05:46 POC Glucose (mg/dL) 131 mg/dL (75-99) H 06/02/18 20:42 POC Glu Contact Assembler GARCIA Dana Polanco 06/02/18 20:[address] Glu mg/dL 169 05/30/18 10:20 Hemoglobin A1c 7.5 % (4.0-6.0) H 05/30/18 10:20 Lactic Ac Sepsis Rflx Y 05/30/18 09:53 Plasma Lactic Acid [place] 0.9 mmol/L (0.7-2.0) 06/02/18 05:46 Calcium 8.9 mg/dL (8.4-10.2) 06/02/18 05:46 Magnesium 1.3 mg/dL (1.6-2.3) L 06/02/18 05:46 Total Bilirubin 2.1 mg/dL (0.2-1.3) H 06/02/18 05:46 AST 20 U/L (14-36) 06/02/18 05:46 ALT 28 U/L (9-52) 06/02/18 05:46 Alkaline Phosphatase 109 U/L (38-126) 06/02/18 05:46 Total Protein 6.4 g/dL (6.3-8.2) 06/02/18 05:46 Albumin 3.4 g/dL (3.5-5.0) L 06/02/18 05:46 Urine Color Yellow 05/30/18 09:40 Urine Appearance Clear (Clear) 05/30/18 09:40 Urine pH 7.0 (5.0-8.0) 05/30/18 09:40 Ur Specific [place] 1.018 (1.001-1.035) 05/30/18 09:40 Urine Protein 1+ (Negative) H 05/30/18 09:40 Urine Glucose (UA) Negative (Negative) 05/30/18 09:40 Urine Ketones Negative (Negative) 05/30/18 09:40 Urine Blood Negative (Negative) 05/30/18 09:40 Urine Nitrite Negative (Negative) 05/30/18 09:40 Urine Bilirubin Negative (Negative) 05/30/18 09:40 Urine Urobilinogen 4.0 mg/dL (<2.0) 05/30/18 09:40 Ur Leukocyte Esterase Negative (Negative) 05/30/18 09:40 Urine RBC 1 /hpf (0-5) 05/30/18 09:40 Urine WBC 1 /hpf (0-5) 05/30/18 09:40 Ur Squamous Epith Cells 5 /hpf (0-4) H 05/30/18 09:40 Urine Bacteria Occasional /hpf (None) H 05/30/18 09:40 Hyaline Casts 4 /lpf (0-2) H 05/30/18 09:40 Urine Mucus Rare /hpf (None) H 05/30/18 09:40 Influenza Type A RNA Not Detected (Not Detectd) 05/30/18 09:05 Influenza Type B (PCR) Not Detected (Not Detectd) 05/30/18 09:05 Group A Strep Rapid Negative (Negative) 05/30/18 09:05 Blood Type A Positive 05/30/18 12:00 Blood Type Recheck No 05/30/18 12:00 Antibody Screen POSITIVE 05/30/18 12:00 Antibody Identification Anti-E 05/30/18 12:00 Direct Antiglob Test Negative 05/30/18 12:00 Crossmatch See Detail 05/30/18 12:00 Transfuse Platelets 06/02/2018 06/02/18 09:00 Spec Expiration Date 06/02/2018 - 2300 05/30/18 12:00 Microbiology 05/30/18 13:45 Blood Blood Culture - Preliminary No Growth after 72 hours 05/30/18 09:05 Blood Blood Culture - Preliminary No Growth after 72 hours 05/30/18 09:05 Throat Group A Strep Throat Culture - Final 05/30/18 09:40 Urine,Voided Urine Culture - Final Assessment and Plan (1) Febrile neutropenia Narrative/Plan: Pleasant 53-year-old woman well-known to this service who presents to Hospital after being evaluated in the oncology office where she had evidence of fever as well as leukopenia and difficulty eating foods and liquids because of pain. Exam reveals evidence of the extensive oral candidiasis and likely candidate of the at least upper esophagus based on symptoms. Given this Eraxis is begun for the treatment of the Shae infection. She over does have fever and significant leukopenia and consequently cefepime is added for treatment of this also. Multiple cultures are in process. Oncology reveals growth factors have already been given Cool solution is been requested to help her with her symptoms especially with her meals and in between if needed. Pain medication was given per oncology. Patient remains a candidate for an autologous bone marrow transplantation in the future 06/02/2018 patient is feeling better but continues to have pancytopenia status post her most recent course of chemotherapy. Followed by hematology oncology for growth factor support and transfusions as indicated. Cultures negative so far and fever has improved Remains on cefepime and Eraxis for the febrile neutropenia at admission and treatment of the oral pharyngeal candidiasis which is starting to show some improvement. Continue with this. Continue with cool solution to ensure she is eating an adequate amount of protein to help her recover. Overall is much more comfortable. Current Visit: Yes Status: Acute Priority: High Code(s): D70.9 - NEUTROPENIA, UNSPECIFIED; R50.81 - FEVER PRESENTING WITH CONDITIONS CLASSIFIED ELSEWHERE SNOMED Code(s): 199570768 (2) Acute myeloid leukemia Current Visit: No Status: Chronic Priority: Medium Code(s): C92.00 - ACUTE MYELOBLASTIC LEUKEMIA, NOT HAVING ACHIEVED REMISSION SNOMED Code(s): 34046428 (3) Thrush of mouth and esophagus Current Visit: Yes Status: Acute Priority: High Code(s): B37.81 - CANDIDAL ESOPHAGITIS; B37.0 - CANDIDAL STOMATITIS SNOMED Code(s): 021791225
--- NOTE | 2018-06-02 23:17 | PN ---
PROGRESS NOTE DATE OF SERVICE: 06/02/2018. REASON FOR FOLLOWUP: 1. Febrile neutropenia. 2. Oral thrush. INTERVAL HISTORY: The patient did have a fever this morning of 102 degrees Fahrenheit. However, the patient is afebrile since then. She has been breathing comfortably. She is complaining of sore throat and difficulty swallowing, but no chest pain. No shortness of breath or cough. No abdominal pain. No diarrhea. No burning or frequency of urine. EXAMINATION: Blood pressure 140/83, pulse of 84, temperature of 99.9. She is 94% on room air. General description is an elderly female lying in bed in no distress. HEENT Examination: Pallor, no scleral icterus. Oral mucous membranes: Thrush. Though decreased intensity. Lungs unlabored breathing. Clear to auscultation anteriorly. Heart S1, S2 regular rate and rhythm. Abdomen soft, no tenderness. Extremities: No edema of the feet. LABS: Hemoglobin 10.3, white count of 0.6, platelet count of 7, BUN of 9, creatinine 0.65. Culture has been negative so far. DIAGNOSTIC IMPRESSION AND PLAN: Patient with febrile neutropenia. The patient did have extensive thrush. However, no other clinical focus of infection. The patient did have fever this morning. No fever afterwards has been recorded. The patient does not look toxic. Keep the patient on Cefepime, nystatin swish and swallow while monitoring clinical course closely. Continue supportive care. MMODL / IJN: [id number] /
[2018-06-03] MEDS: SODIUM CHLORIDE 0.9% 1,000 ML IV SCH ×3 (06:08→13:07)
[2018-06-03] MEDS: LEVOTHYROXINE 125 MCG TAB PO SCH (06:31)
[2018-06-03] MEDS: ACETAMINOPHEN TAB 325 MG TAB PO PRN ×2 (06:31→15:23)
[2018-06-03 07:17] LABS: Glucose,Whole Blood 154 mg/dL (75-99)
[2018-06-03] MEDS: NYSTATIN 100,000 UNIT/ML SUSP 500,000 UNIT/5 ML CUP PO SCH ×4 (08:08→21:11)
[2018-06-03] MEDS: METOPROLOL TARTRATE 50 MG TAB PO SCH ×2 (08:09→21:10)
[2018-06-03] MEDS: ATORVASTATIN 20 MG TAB PO SCH (08:09)
[2018-06-03] MEDS: MAGNESIUM OXIDE 400 MG TAB PO SCH (08:09)
[2018-06-03] MEDS: PANTOPRAZOLE 40 MG TABLET PO SCH ×2 (08:09→17:45)
[2018-06-03] MEDS: LORATADINE 10 MG TAB PO SCH (08:09)
[2018-06-03] MEDS: ACYCLOVIR 200 MG CAP PO SCH ×2 (08:09→21:11)
[2018-06-03] MEDS: ESCITALOPRAM 10 MG TAB PO SCH (08:12)
[2018-06-03] MEDS: MAG HYDROX/AL HYDROX/SIMETH 30 ML, diphenhydrAMINE ELIXIR 75 MG, LIDOCAINE VISCOUS 30 ML PO SCH ×9 (08:12→21:11)
[2018-06-03] MEDS: CEFEPIME 2 GM in SODIUM CHLORIDE 0.9% 50 ML IVPB SCH ×3 (08:13→23:25)
[2018-06-03] MEDS: SYMBICORT 160-4.5 MCG INHALER INHALATION SCH ×2 (08:49→20:56)
[2018-06-03 08:50] LABS: ALT 27 U/L (9-52); AST 15 U/L (14-36); Albumin 3.5 g/dL (3.5-5.0); Alkaline Phosphatase 123 U/L (38-126); Anion Gap 10 mmol/L; Blood Urea Nitrogen 8 mg/dL (7-17); Calcium 8.7 mg/dL (8.4-10.2); Carbon Dioxide 25 mmol/L (22-30); Chloride 105 mmol/L (98-107); Glucose 152 mg/dL (74-99); Potassium 3.6 mmol/L (3.5-5.1); Sodium 140 mmol/L (137-145); Total Bilirubin 1.8 mg/dL (0.2-1.3); Total Protein 6.3 g/dL (6.3-8.2)
[2018-06-03 09:24] LABS: MCH 29.1 pg (25.0-35.0); MCHC 32.9 g/dL (31.0-37.0); MCV 88.5 fL (80.0-100.0); Mean Platelet Volume 12.4; RBC 2.22 m/uL (3.80-5.40); RDW 15.8 % (11.5-15.5)
[2018-06-03 09:30] LABS: WBC 0.9 k/uL (3.8-10.6)
[2018-06-03 09:36] LABS: HCT 19.7 % (34.0-46.0); HGB 6.5 gm/dL (11.4-16.0); Platelet Count 14 k/uL (150-450)
[2018-06-03] MEDS: ANIDULAFUNGIN 100 MG in SODIUM CHLORIDE 0.9% 100 ML IVPB SCH (09:49)
[2018-06-03 10:39] LABS: Poikilocytosis (M) Present
[2018-06-03 11:18] LABS: Glucose,Whole Blood 131 mg/dL (75-99)
[2018-06-03] MEDS ORDERED: VANCOMYCIN IV PER PHARMACY 1 EACH MISC MISCELLANE PRN (11:27)
[2018-06-03] MEDS ORDERED: VANCOMYCIN 2,000 MG in SODIUM CHLORIDE 0.9% 500 ML 500 ML IVPB ONE (12:30)
--- NOTE | 2018-06-03 12:52 | CDI ---
Documentation Clarification Form Date: 06/03/2018 12:33:53 PM From: Brisa Holloway RN, CCDS Admit Date: 05/30/2018 12:10:00 PM Patient Name: Kati Brunner Visit Number: [id number] ATTENTION: The Clinical Documentation Specialists (CDI) and [facility] Coding Staff appreciate your assistance in clarifying documentation. Please respond to the clarification below the line at the bottom and electronically sign. The CDI & [facility] Coding staff will review the response and follow-up if needed. Please note: Queries are made part of the Legal Health Record. If you have any questions, please contact the author of this message via ITS. Dr. Sharma/Kerry Keith CNP Patient history/risk factors: AML on Chemo, febrile neutropenia, severe sore throat w/ associated nausea and vomiting w/ odynophagia, chronic bronchial asthma Clinical Indicators: 06/01 radiation Oncology Progress note: "Shae esophagitis." 06/02 Attending Progress note: "Febrile neutropenia and sepsis, probably related to severe bronchitis and pharyngitis. Patient has significant fungal pharyngitis maybe esophagitis leading to odynophagia." 06/02 ID Progress note: "Exam reveals evidence of the extensive oral candidiasis and likely candidate of the at least upper esophagus based on symptoms. Cultures negative so far and fever has improved Remains on cefepime and Eraxis for the febrile neutropenia at admission and treatment of the oral pharyngeal candidiasis which is starting to show some improvement. Candidal esophagitis and staomatitis. Labs: WBC .1/.2, lactic acid 2.6/1.5 Vital Signs: Temp 100.8, hr 110, RR 22, B/P 140/76, spo2 98% ra Other Clinical Indicators: AML on chemotherapy Treatment: Medication: IV cefepime 2 gm IVPB X IVPB Q 8 hrs, IV Fluconazole 400 mg IVPB x 1 , Anidulafungin 100 mg IVPB QD, Micostatin swish and swallow QID, IV Vanco PTD, Zovairax 400 mg PO BID Consults: ID, Oncology In your professional opinion, can the site of the Candidiasis be further specified as one of the following? Candidal Bronchitis Candidal Pneumonia Sepsis d/t candidiasis unable to determine 06/05 18 unable to determine MTDD
--- NOTE | 2018-06-03 13:02 | P.PN ---
Subjective Progress Note Date: 06/03/18 Principal diagnosis: febrile neutropenia Patient seen today in follow-up. MAXIMUM TEMPERATURE overnight 100.9 Fahrenheit. So far all cultures are negative. She is feeling pretty tired today, her back is uncomfortable from the bed but otherwise no pain, oral irritation, cough, nausea, vomiting, abdominal pain, diarrhea, constipation, bleeding, or swelling. She gets short of breath on exertion. She is concerned about needing oxygen at home. Objective - Vital Signs Vital signs: Vital Signs Temp 98.4 F 06/03/18 12:07 Pulse 76 06/03/18 12:07 Resp 18 06/03/18 12:07 BP 118/67 06/03/18 12:07 Pulse Ox 95 06/03/18 12:07 Intake & Output 06/02/18 06/03/18 06/03/18 18:59 06:59 18:59 Intake Total 1263 640 Balance 1263 640 Weight 118.841 kg 110.818 kg Intake: Intake, IV Titration 1050 50 Amount Anidulafungin 100 mg In 100 Sodium Chloride 0.9% 100 ml @ 84 mls/hr IVPB DAILY [facility] Rx#:[id number] Cefepime 2 gm In Sodium 50 50 Chloride 0.9% 50 ml @ 100 mls/hr IVPB Q8HR [facility] Rx# :[id number] Sodium Chloride 0.9% 1, 900 000 ml @ 150 mls/hr IV . Q6H40M [facility] Rx#:[id number] Oral 590 Blood Product 213 Platelet Irr Pheresis 2 213 Acda Unit [id number] Other: Voiding Method Toilet # Voids 4 1 - Constitutional General appearance: Present: cooperative, no acute distress, obese - EENT Eyes: Present: anicteric sclerae, EOMI ENT: Present: hearing grossly normal, normal oropharynx - Respiratory Respiratory: bilateral: CTA - Cardiovascular Heart sounds: normal: S1, S2 Abnormal Heart Sounds: Absent: systolic murmur, diastolic murmur, rub, S3 Gallop , S4 Gallop, click, other - Peripheral edema leg Peripheral Edema: bilateral: None - Gastrointestinal General gastrointestinal: Present: normal bowel sounds, soft. Absent: absent bowel sounds, decreased bowel sounds, distended, hepatomegaly, hyperactive bowel sounds, organomegaly, rigid, scaphoid, splenomegaly, tenderness, umbilical hernia, ventral hernia - Integumentary Integumentary: Present: normal turgor, pale - Neurologic Neurologic: Present: CNII-XII intact - Musculoskeletal Musculoskeletal: Present: generalized weakness, strength equal bilaterally - Psychiatric Psychiatric: Present: A&O x's 3, appropriate affect, intact judgment & insight - Labs CBC & Chem 7: 06/03/18 07:37 06/03/18 07:37 Labs: Abnormal Lab Results - Last 24 Hours (Table) 06/02/18 06/02/18 06/03/18 Range/Units 16:42 20:42 07:16 WBC (3.8-10.6) k/uL RBC (3.80-5.40) m/uL Hgb (11.4-16.0) gm/dL Hct (34.0-46.0) % RDW (11.5-15.5) % Plt Count (150-450) k/uL Glucose (74-99) mg/dL POC Glucose (mg/dL) 149 H 131 H 154 H (75-99) mg/dL Total Bilirubin (0.2-1.3) mg/dL Crossmatch 06/03/18 06/03/18 06/03/18 Range/Units 07:37 07:37 10:46 WBC 0.9 L* (3.8-10.6) k/uL RBC 2.22 L (3.80-5.40) m/uL Hgb 6.5 L* (11.4-16.0) gm/dL Hct 19.7 L* (34.0-46.0) % RDW 15.8 H (11.5-15.5) % Plt Count 14 L* D (150-450) k/uL Glucose 152 H (74-99) mg/dL POC Glucose (mg/dL) (75-99) mg/dL Total Bilirubin 1.8 H (0.2-1.3) mg/dL Crossmatch See Detail 06/03/18 Range/Units 11:17 WBC (3.8-10.6) k/uL RBC (3.80-5.40) m/uL Hgb (11.4-16.0) gm/dL Hct (34.0-46.0) % RDW (11.5-15.5) % Plt Count (150-450) k/uL Glucose (74-99) mg/dL POC Glucose (mg/dL) 131 H (75-99) mg/dL Total Bilirubin (0.2-1.3) mg/dL Crossmatch Microbiology - Last 24 Hours (Table) 05/30/18 09:05 Blood Culture - Preliminary Blood No Growth after 96 hours 05/30/18 13:45 Blood Culture - Preliminary Blood No Growth after 72 hours Assessment and Plan (1) Febrile neutropenia Narrative/Plan: Cont to monitor VS Cult negative ID following. Empiric abx WBC slow to improve but, improving. NO GCSF Current Visit: Yes Status: Acute Priority: High Code(s): D70.9 - NEUTROPENIA, UNSPECIFIED; R50.81 - FEVER PRESENTING WITH CONDITIONS CLASSIFIED ELSEWHERE SNOMED Code(s): 775094193 (2) Thrush of mouth and esophagus Narrative/Plan: Improving with treatments, cont. Anticipate with recovery of WBC this will recover as well Current Visit: Yes Status: Acute Priority: High Code(s): B37.81 - CANDIDAL ESOPHAGITIS; B37.0 - CANDIDAL STOMATITIS SNOMED Code(s): 442780819 (3) Acute myeloid leukemia Narrative/Plan: Pt completed chemo recently. Her complications on presentation are unfortunately expected. Cont supportive care. Current Visit: No Status: Chronic Priority: Medium Code(s): C92.00 - ACUTE MYELOBLASTIC LEUKEMIA, NOT HAVING ACHIEVED REMISSION SNOMED Code(s): 30855786 (4) Pancytopenia due to antineoplastic chemotherapy Narrative/Plan: Plt 14,000, no transfusion Hgb 6.5, 1 unit irradiated PRBCs WBC up to 0.9 today! Encouraged pt to ambulate as tolerated. Her SOB on exertion is more likely r/t profound anemia and that we won't make any decisions about O2 until Hgb improved and stable. She agreed with plan CBC daily Current Visit: Yes Status: Acute Priority: High Code(s): D61.810 - ANTINEOPLASTIC CHEMOTHERAPY INDUCED PANCYTOPENIA; T45.1X5A - ADVERSE EFFECT OF ANTINEOPLASTIC AND IMMUNOSUP DRUGS, INIT SNOMED Code(s): 119109844852815 Plan: Elevated Bilirubin-Bilirubin trending down.
[2018-06-03] MEDS: CALCIUM CARB-VIT D 500MG-200UN 1 EACH TAB PO SCH (13:06)
[2018-06-03] MEDS: FERROUS SULFATE 325 MG TAB PO SCH (13:07)
--- NOTE | 2018-06-03 13:10 | CDI ---
Documentation Clarification Form Date: 06/03/2018 12:59:35 PM From: Brisa Holloway RN, CCDS Admit Date: 05/30/2018 12:10:00 PM Patient Name: Kati Brunner Visit Number: [id number] ATTENTION: The Clinical Documentation Specialists (CDI) and [facility] Coding Staff appreciate your assistance in clarifying documentation. Please respond to the clarification below the line at the bottom and electronically sign. The CDI & [facility] Coding staff will review the response and follow-up if needed. Please note: Queries are made part of the Legal Health Record. If you have any questions, please contact the author of this message via ITS. Dr. Naveen Sharma Asthma is documented in the PM and progress notes and requires further specificity. History/risk factors: Asthma, DM, AML on Chemo, chronic bronchial asthma Clinical Indicators: 05/30 H&P: "-Asthma without any acute exacerbation." 05/30 CXR: "Right perihilar linear changes more typical of atelectasis or scar rather than pneumonia." Vital Signs: Temp 100.8, Hr 110, RR 22, B/P 140/76, spo2 98% ra Other Clinical Indicators: O2 needs increased from RA to 2L NC to 3L NC Treatment: Symbicort INH BID Benadryl 25 mg PO and several OT IVP doses Claritin 10 mg PO QD In your professional opinion, can you please further specify the asthma, if known? With Acute lower respiratory infection COPD (specify with or without exacerbation) Chronic obstructive bronchitis Other, please specify ___ Unable to determine Severity Mild intermittent Mild persistent Moderate persistent Other, please specify ____ Unable to determine Form or Type Cough variant Childhood Exercise induced bronchospasm Extrinsic allergic Idiosyncratic Intrinsic nonallergic Late-onset Mixed Other, please specify____ Unable to determine (Last Revision: September 2017) i added it to PN 06/05 see above MTDD
[2018-06-03] MEDS ORDERED: diphenhydrAMINE 25 MG CAP PO ONE (16:00)
[2018-06-03] MEDS ORDERED: Magnesium Replacement Protocol 1 EACH MISC MISCELLANE PRN (16:19)
[2018-06-03 16:22] LABS: Glucose,Whole Blood 137 mg/dL (75-99)
--- NOTE | 2018-06-03 16:33 | P.PN ---
Subjective Progress Note Date: 06/03/18 Progress note being dictated for Dr. Sharma. Interval history:52-year-old female admitted for febrile neutropenia patient received chemotherapy for acute myeloid leukemia patient hemoglobin is quite low is receiving irradiated PRBC transfusion. Patient probably is presently on cefepime, anidulafungin, and acyclovir patient can use to have odynophagia unable to take anything by mouth by mouth medications will be switched to oral 06/01/2018 This is still having episodes of fever although better. Her dysphagia is better but still has some odynophagia 06/02/2018 complaints of sore throat, currently on Sam's solution. Platelet 7 , without evidence of bleeding, platelet transfusion pending. Currently afebrile ,T-max 103. WBC 0.6. Transfused yesterday packed RBCs, Hemoglobin 7.3. Consumed 50% of lunch. Appears confused at times. Maintained on IV antibiotics, antifungals as per infectious disease. Maintained on 3 L nasal cannula, maintaining O2 sats in the mid 90s. Continues on IV fluid hydration. Denies chest pain, palpitations or shortness of breath. Constitutional: reports fever, sore throat Cardio vascular: denied any chest pain, palpitations Gastrointestinal : no N/V/D. no abdominal pain Pulmonary: Denied any shortness of breath cough Neurologic denied any new focal deficits Active Medications Acetaminophen (Tylenol Tab) 650 mg PO Q6HR PRN PRN Reason: Fever and/ or Pain Last Admin: 06/02/18 04:50 Dose: 650 mg Acyclovir (Zovirax) 400 mg PO BID [facility] Last Admin: 06/02/18 08:03 Dose: 400 mg Albuterol/Ipratropium (Duoneb 0.5 Mg-3 Mg/3 Ml Soln) 3 ml INHALATION RT-QID PRN PRN Reason: Shortness Of Breath Atorvastatin Calcium (Lipitor) 20 mg PO DAILY [facility] Last Admin: 06/02/18 08:03 Dose: 20 mg Budesonide/Formoterol Fumarate (Symbicort 160-4.5 Mcg Inhaler) 2 puff INHALATION RT-BID [facility] Last Admin: 06/02/18 08:07 Dose: Not Given Calcium Carbonate (Oscal 500+D) 1 each PO 1200 [facility] Last Admin: 06/02/18 13:01 Dose: Not Given Al Hydroxide/Mg Hydroxide 30 ml/ Diphenhydramine HCl 75 mg/Lidocaine HCl 30 ml 0 ml PO TID [facility] Last Admin: 06/02/18 08:02 Dose: 5 ml Al Hydroxide/Mg Hydroxide 30 ml/ Diphenhydramine HCl 75 mg/Lidocaine HCl 30 ml 0 ml PO DAILY PRN PRN Reason: severe oral pain Escitalopram Oxalate (Lexapro) 30 mg PO QAM [facility] Last Admin: 06/02/18 08:02 Dose: 30 mg Ferrous Sulfate (Feosol) 325 mg PO 1200 [facility] Last Admin: 06/02/18 13:00 Dose: 325 mg Cefepime HCl 2 gm/ Sodium (Chloride) 50 mls @ 100 mls/hr IVPB Q8HR [facility] Last Admin: 06/02/18 08:03 Dose: 100 mls/hr Sodium Chloride (Saline 0.9%) 1,000 mls @ 150 mls/hr IV .Q6H40M [facility] Last Admin: 06/02/18 13:04 Dose: 150 mls/hr Anidulafungin 100 mg/ Sodium (Chloride) 100 mls @ 84 mls/hr IVPB DAILY [facility] Last Admin: 06/02/18 08:45 Dose: 84 mls/hr Magnesium Sulfate/Dextrose 1 (gm/ IV Solution) 100 mls @ 100 mls/hr IVPB Q1H [facility] Stop: 06/02/18 15:59 Last Admin: 06/02/18 14:59 Dose: 100 mls/hr Levothyroxine Sodium (Synthroid) 125 mcg PO 0630 [facility] Last Admin: 06/02/18 06:04 Dose: 125 mcg Loratadine (Claritin) 10 mg PO DAILY [facility] Last Admin: 06/02/18 08:02 Dose: 10 mg Magnesium Oxide (Mag-Ox) 400 mg PO DAILY [facility] Last Admin: 06/02/18 13:55 Dose: 400 mg Metoprolol Tartrate (Lopressor) 50 mg PO BID [facility] Last Admin: 06/02/18 08:03 Dose: 50 mg Montelukast Sodium (Singulair) 10 mg PO HS [facility] Last Admin: 06/01/18 19:45 Dose: 10 mg Nystatin (Mycostatin Oral Susp) 500,000 unit PO QID [facility] Last Admin: 06/02/18 13:00 Dose: 500,000 unit Ondansetron HCl (Zofran) 4 mg PO Q6HR PRN PRN Reason: Nausea Ondansetron HCl (Zofran) 4 mg IVP Q6HR PRN PRN Reason: Nausea And Vomiting Last Admin: 05/31/18 19:45 Dose: 4 mg Pantoprazole Sodium (Protonix) 40 mg PO AC-BID [facility] Last Admin: 06/02/18 08:03 Dose: 40 mg Trimethobenzamide HCl (Tigan) 100 mg IM Q6HR PRN PRN Reason: Nausea And Vomiting Last Admin: 05/31/18 09:46 Dose: 100 mg Zolpidem Tartrate (Ambien) 10 mg PO HS PRN PRN Reason: Insomnia 06/03/2018 received platelets yesterday, platelets improved up to 14. T-max 101 , WBC increased to 0.9. Hemoglobin dropped to 6.5, scheduled for 1 unit of packed RBCs. Receiving IV fluid hydration, mild generalized edema. Oral intake improving. Magnesium 1.6. Objective - Vital Signs Vital signs: Vital Signs Temp 98.1 F 06/03/18 15:29 Pulse 84 06/03/18 15:29 Resp 18 06/03/18 15:29 BP 128/68 06/03/18 15:29 Pulse Ox 95 06/03/18 12:07 Intake & Output 06/02/18 06/03/18 06/03/18 18:59 06:59 18:59 Intake Total 0671 546 0791 Balance 4092 002 4557 Weight 118.841 kg 110.818 kg Intake: Intake, IV Titration 1050 50 1050 Amount Anidulafungin 100 mg In 100 100 Sodium Chloride 0.9% 100 ml @ 84 mls/hr IVPB DAILY [facility] Rx#:[id number] Cefepime 2 gm In Sodium 50 50 50 Chloride 0.9% 50 ml @ 100 mls/hr IVPB Q8HR [facility] Rx# :[id number] Sodium Chloride 0.9% 1, 900 000 ml @ 150 mls/hr IV . Q6H40M [facility] Rx#:[id number] Sodium Chloride 0.9% 1, 400 000 ml @ 50 mls/hr IV . Q20H [facility] Rx#:[id number] Vancomycin 2,000 mg In 500 Sodium Chloride 0.9% 500 ml 500 ml @ 167 mls/hr IVPB ONCE ONE Rx#: [id number] Oral 590 Blood Product 213 0 Platelet Irr Pheresis 2 213 Acda Unit [id number] Rc Irr As1 Unit 0 [id number] Other: Voiding Method Toilet # Voids 4 1 3 - Exam GENERAL: The patient is sitting up in chair ,alert and oriented x3, no acute distress. HEENT: Pupils are round and equally reacting to light. EOMI. No scleral icterus. No conjunctival pallor. Normocephalic, atraumatic. Oral thrush improving. CARDIOVASCULAR: S1 and S2 present. No murmurs, rubs, or gallops. PULMONARY: Chest is clear to auscultation, no wheezing or crackles. ABDOMEN: Soft, nontender, nondistended, normoactive bowel sounds. No palpable organomegaly. MUSCULOSKELETAL: No joint swelling or deformity. EXTREMITIES: No cyanosis, clubbing, positive pedal edema. NEUROLOGICAL: Gross neurological examination did not reveal any focal deficits. SKIN: No rashes, mild generalized edema. Microbiology 05/30/18 13:45 Blood Blood Culture - Preliminary No Growth after 96 hours 05/30/18 09:05 Blood Blood Culture - Preliminary No Growth after 96 hours 05/30/18 09:05 Throat Group A Strep Throat Culture - Final 05/30/18 09:40 Urine,Voided Urine Culture - Final - Labs CBC & Chem 7: 06/03/18 07:37 06/03/18 07:37 Labs: Abnormal Lab Results - Last 24 Hours (Table) 06/02/18 06/02/18 06/03/18 Range/Units 16:42 20:42 07:16 WBC (3.8-10.6) k/uL RBC (3.80-5.40) m/uL Hgb (11.4-16.0) gm/dL Hct (34.0-46.0) % RDW (11.5-15.5) % Plt Count (150-450) k/uL Glucose (74-99) mg/dL POC Glucose (mg/dL) 149 H 131 H 154 H (75-99) mg/dL Total Bilirubin (0.2-1.3) mg/dL Crossmatch 06/03/18 06/03/18 06/03/18 Range/Units 07:37 07:37 10:46 WBC 0.9 L* (3.8-10.6) k/uL RBC 2.22 L (3.80-5.40) m/uL Hgb 6.5 L* (11.4-16.0) gm/dL Hct 19.7 L* (34.0-46.0) % RDW 15.8 H (11.5-15.5) % Plt Count 14 L* D (150-450) k/uL Glucose 152 H (74-99) mg/dL POC Glucose (mg/dL) (75-99) mg/dL Total Bilirubin 1.8 H (0.2-1.3) mg/dL Crossmatch See Detail 06/03/18 Range/Units 11:17 WBC (3.8-10.6) k/uL RBC (3.80-5.40) m/uL Hgb (11.4-16.0) gm/dL Hct (34.0-46.0) % RDW (11.5-15.5) % Plt Count (150-450) k/uL Glucose (74-99) mg/dL POC Glucose (mg/dL) 131 H (75-99) mg/dL Total Bilirubin (0.2-1.3) mg/dL Crossmatch Microbiology - Last 24 Hours (Table) 05/30/18 13:45 Blood Culture - Preliminary Blood No Growth after 96 hours 05/30/18 09:05 Blood Culture - Preliminary Blood No Growth after 96 hours Assessment and Plan Assessment: -Febrile neutropenia and sepsis, probably related to severe bronchitis and pharyngitis. patient has significant fungal pharyngitis maybe esophagitis leading to odynophagia. -Thrush, improving -Pancytopenia secondary to AML chemotherapy -Anemia secondary to the above -Asthma without any acute exacerbation -Type 2 diabetes mellitus -Gastroesophageal reflux disease - hyperlipidemia -Hypertension -hypothyroidism -Hypomagnesemia Plan: Continue on current medication regime ,monitoring and symptomatic treatment. Magnesium supplements ordered. IV fluids decreased. Lasix 20 IV push 1 ordered after 1 unit of packed RBCs .close monitoring of electrolytes, CBC with repeat labs pending .aggressive pulmonary toileting .maintain supportive care. The impression and plan of care has been dictated as directed. : I performed a history and examination of this patient, discussed the same with the dictator. I agree with the dictator's note ,documented as a scribe. Any additional findings or plans will be noted.
[2018-06-03] MEDS: MAGNESIUM SULFATE-D5W PMX 1 GM in DEXTROSE/WATER 1 100ML.BAG IVPB SCH ×2 (17:46→18:46)
[2018-06-03] MEDS ORDERED: FUROSEMIDE 10 MG/ML 2 ML VIAL IV ONE (18:00)
[2018-06-03 20:00] LABS: Glucose,Whole Blood 158 mg/dL (75-99)
[2018-06-03] MEDS: MONTELUKAST 10 MG TAB PO SCH (21:11)
--- NOTE | 2018-06-03 22:31 | PN ---
PROGRESS NOTE DATE OF SERVICE: 06/03/2018. REASON FOR FOLLOWUP: Febrile neutropenia, oral thrush. INTERVAL HISTORY: The patient overall feels better. Has improved. The highest temperature today has been 100.4. She has been breathing comfortably. Her oral thrush has decreased in intensity. Still having some difficulty swallowing but denies any chest pain or cough. No abdominal pain. No diarrhea. EXAMINATION: Blood pressure 124/72 with a pulse of 82, temperature 97.9%, she is saturating 97% on 3 L nasal cannula. GENERAL DESCRIPTION: A middle aged female lying in bed in no distress. HEENT: Oral thrush has decreased in intensity. LUNGS: Unlabored breathing. Clear to auscultation. No wheeze or crackles. HEART: S1, S2. Regular rate and rhythm. ABDOMEN: Soft, no tenderness. EXTREMITIES: No edema of the feet. LABS: Hemoglobin 6.5, 14, BUN is 8, creatinine 0.69. DIAGNOSTIC IMPRESSION AND PLAN: 1. Patient with febrile neutropenia. The patient's fever seems to be finally coming down. Currently no active focus of infection except the oral thrush the patient has. Blood cultures have been negative. Urine was negative. Chest x-ray negative for any pneumonia. Currently on . Vancomycin has been added by the primary team. 2. The patient with oral thrush, responding to the oxygen, nystatin swish and swallow and the will be continued for now. Continue supportive care. MMODL / IJN: [id number] /
[2018-06-04] MEDS ORDERED: VANCOMYCIN 1,750 MG in SODIUM CHLORIDE 0.9% 500 ML 500 ML IVPB SCH ×2
[2018-06-04 03:32] LABS: Glucose,Whole Blood 122 mg/dL (75-99)
--- NOTE | 2018-06-04 04:36 | CT ---
EXAMINATION TYPE: CT brain ghanshyamine wo con DATE OF EXAM: 06/04/2018 COMPARISON: None HISTORY: fall;hematoma CT DLP: 1580.20 mGycm Automated exposure control for dose reduction was used. TECHNIQUE: CT scan of the head and cervical spine are performed without contrast. FINDINGS: There is occipital scalp hematoma in the midline towards the left side. There is high att enuation in the posterior fossa along the cerebellar tentorium and the posterior interhemispheric fis sure consistent with acute hemorrhage. This is subdural hemorrhage. There is also water density fluid density in the cerebellar tentorium region that could relate to old hematoma. There is no midline sh ift. The calvarium is intact. There is no hydrocephalus. There is straightening of the cervical spine and slight kyphotic curvature. Exam is limited by motion . Skull base is intact. I see no cervical spine fracture. IMPRESSION: There is acute subdural hemorrhage along the cerebellar tentorium and the posterior interhemispheric fissure. There is probably also a component of chronic subdural hemorrhage. There is large occipital scalp hematoma. No acute abnormality of the cervical spine. Limited exam due to motion. No fracture seen. This exam was discussed with the patient's nurse on the floor at 4:30 AM.
[2018-06-04 05:19] LABS: Anisocytosis Slight; HCT 23.7 % (34.0-46.0); HGB 7.9 gm/dL (11.4-16.0); MCH 30.1 pg (25.0-35.0); MCHC 33.3 g/dL (31.0-37.0); MCV 90.3 fL (80.0-100.0); Mean Platelet Volume 10.4; RBC 2.62 m/uL (3.80-5.40); RDW 16.4 % (11.5-15.5)
[2018-06-04 05:42] LABS: ALT 31 U/L (9-52); AST 30 U/L (14-36); Albumin 3.8 g/dL (3.5-5.0); Alkaline Phosphatase 147 U/L (38-126); Anion Gap 14 mmol/L; Blood Urea Nitrogen 9 mg/dL (7-17); Calcium 8.6 mg/dL (8.4-10.2); Carbon Dioxide 22 mmol/L (22-30); Chloride 104 mmol/L (98-107); Glucose 235 mg/dL (74-99); Magnesium 1.9 mg/dL (1.6-2.3); Potassium 3.5 mmol/L (3.5-5.1); Sodium 140 mmol/L (137-145); Total Bilirubin 1.7 mg/dL (0.2-1.3); Total Protein 6.7 g/dL (6.3-8.2)
[2018-06-04] MEDS ORDERED: NALOXONE 0.4 MG/ML 1 ML VIAL IV PRN (05:45)
[2018-06-04 05:47] LABS: ABG Base Excess -1.4 mmol/L; ABG HCO3 24 mmol/L (21-25); ABG Oxygen Saturation 91.7 % (94-97); ABG PCO2 41 mmHg (35-45); ABG PH 7.38 (7.35-7.45); ABG PO2 61 mmHg (83-108); ABG TCO2 25 mmol/L (19-24)
[2018-06-04 05:52] LABS: INR 1.1 (<1.2); Prothrombin Time 11.1 sec (9.0-12.0)
[2018-06-04 06:01] LABS: Platelet Count 32 k/uL (150-450)
[2018-06-04 06:39] LABS: Neutrophils % (M) 7 %
[2018-06-04 06:40] LABS: Band Neutrophils % 6 %; Metamyelocytes # (M) 0.13 k/uL (0); Metamyelocytes % 3 %; Nucleated Red Blood Cells 3 /100 WBC (0-0); Total Cells Counted 200
[2018-06-04] MEDS ORDERED: PROPOFOL 1,000 MG in EMPTY BAG 1 BAG IV SCH (06:40)
[2018-06-04 06:41] LABS: Monocytes # (M) 1.01 k/uL (0-1.0); WBC 4.2 k/uL (3.8-10.6)
[2018-06-04 06:42] LABS: Large Platelets Present; Polychromasia Present
[2018-06-04 06:43] LABS: Poikilocytosis (M) Present
[2018-06-04] MEDS ORDERED: FUROSEMIDE 10 MG/ML 10 ML VIAL IV STA (06:55)
[2018-06-04 07:15] LABS: Phosphorus 3.1 mg/dL (2.5-4.5)
--- NOTE | 2018-06-04 07:18 | XR ---
EXAM: XR Chest, 1 View CLINICAL HISTORY: tube placement TECHNIQUE: Frontal view of the chest. COMPARISON: 05/30/18 FINDINGS: Lungs: Large amount of airspace opacities throughout both lungs, slightly worse in the right Pleural space: Unremarkable. No pneumothorax. Heart: Unremarkable. No cardiomegaly. Mediastinum: Unremarkable. Bones/joints: Unremarkable. Tubes, lines and devices: Tip of endotracheal tube is about 2.6 cm above the stefanie. Enteric tube reached the body the stomach, but not completely included in the [id number]. Tip of left PICC projects over the region of superior vena cava, about 2 cm below the level of the stefanie IMPRESSION: Supporting tubes and line are detailed as above. Large amount of airspace opacities in both lungs are new, suggest pulmonary edema and/or pneumonia.
[2018-06-04] MEDS: LEVOTHYROXINE 125 MCG TAB PO SCH (07:37)
[2018-06-04] MEDS: PANTOPRAZOLE 40 MG TABLET PO SCH (07:37)
[2018-06-04] MEDS: SODIUM CHLORIDE 0.9% 1,000 ML IV SCH (07:38)
[2018-06-04] MEDS: SYMBICORT 160-4.5 MCG INHALER INHALATION SCH (08:15)
[2018-06-04 09:10] VITALS: TEMP 102.5
[2018-06-04 09:16] VITALS: BP 110/65; RESP 28
[2018-06-04 09:45] VITALS: PULSE 82
--- NOTE | 2018-06-04 13:48 | P.CNPUL ---
History of Present Illness Consult date: 06/04/18 Requesting physician: David Amos Reason for consult: other (Acute hypoxic respiratory failure and subdural hemorrhage along the cerebellar tentorium and the posterior interhemispheric fissure.) Chief complaint: Fever and weakness. 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 Repeat bone marrow biopsy on 02/13 showed no residual leukemia. She had normal cytogenetics. Induction was complicated by neutropenic sepsis, pneumonia, ventilator dependent respiratory failure, patient was felt not to be a candidate for allogenic transplant to due to favorable finding of inversion of 16. She had her first induction on 03/10/2018, and she required supportive packed RBCs and platelets transfusion. Patient is status post her third consolidation treatment with high-dose cytarabine. Presented to the ER on 05/30/2018 with fevers, difficulty swallowing, oral thrush, weakness, erythema of the posterior pharynx, some nausea and emesis, and she had a temp of 100.8. Patient was treated for neutropenic sepsis, and she had pancultures given empirically antibiotics. Since admission, the patient was seen by many consultants. I was notified about this patient early this morning apparently she fell in her room and she landed on her head, sustained a subdural hematoma, and hemorrhage. Patient was unconscious, she was intubated and transferred to the ICU. Before I even evaluated the patient, transfer plans were being made to have the patient transferred to [facility] to be evaluated by neurosurgery. Patient was placed on mechanical ventilation, and I went ahead and recommended ventilator settings. Her FiO2 was placed on 100%, tidal volume 500, assist control rate was 20, and PEEP was at 10. Her chest x-ray showed evidence of interstitial edema, she was hemodynamically stable, and I recommended diuresis. She didn't respond well to Lasix, in the meantime I have recommended that the different consultants on this patient including hematology oncology be notified , and I have recommended platelet transfusion which was started, but the patient may have had a reaction to the platelets. Hence it was placed on hold since her temp was noted to be elevated shortly after platelets were started. At any rate patient was stabilized from the pulmonary perspective, stabilized hemodynamically, and I have cleared her for transfer from the pulmonary perspective. Discussed her condition with her family/daughter is at bedside. Review of Systems ROS unobtainable: due to endotracheal tube Past Medical History Past Medical History: Asthma, Blood Disorder, Cancer, Diabetes Mellitus, GERD/ Reflux, Hyperlipidemia, Hypertension, Respiratory Disorder, Thyroid Disorder Additional Past Medical History / Comment(s): AML,neutropenic sepsis/pneumonia/ respiratory failure and was intubated, chronic bronchial asthma, NIDDM type II, chronic back pain, neuropathy L hand, L hand 2nd and 3rd fingers are "locking up " at times, L sided carpal tunnel, hypothyroid, iron deficiency anemia, insomnia , sinus problems;diverticulitis. History of Any Multi-Drug Resistant Organisms: None Reported Past Surgical History: Adenoidectomy, Heart Catheterization, Tonsillectomy, Tubal Ligation Additional Past Surgical History / Comment(s): BMAs, bronchoscopy with washing, picc lines-current double lumen L upper forearm, carpel tunnel right wrist, bilateral cataract removal, bilateral laser eye surgery/lens implants, colonoscopy, epidural injections. Past Anesthesia/Blood Transfusion Reactions: No Reported Reaction Additional Past Anesthesia/Blood Transfusion Reaction / Comment(s): Pt has received platelets and blood transfusions without reaction. Past Psychological History: No Psychological Hx Reported Additional Psychological History / Comment(s): Pt states her anxiety and depression are managed with her medications. She lives alone and is independent. She used [facility] in past. No experience. No international travel. Is not a current tobacco smoker or significant alcohol user. Smoking Status: Never smoker Smoking Status: Never smoker Past Alcohol Use History: None Reported Past Drug Use History: None Reported - Past Family History Mother Family Medical History: Cancer Father Family Medical History: No Reported History Additional Family Medical History / Comment(s): Father is living. Medications and Allergies Home Medications Medication Instructions Recorded Confirmed Type Escitalopram Oxalate [Lexapro] 30 mg PO QAM 05/04/16 05/30/18 History Ferrous Sulfate [Iron (65 MG 325 mg PO DAILY 05/04/16 05/30/18 History Elemental)] Omeprazole [PriLOSEC] 20 mg PO AC-BID 05/04/16 05/30/18 History Atorvastatin [Lipitor] 20 mg PO DAILY 10/26/16 05/30/18 History Fluticasone Nasal [place] [Flonase 1 spray EA NOSTRIL DAILY 10/26/16 05/30/18 History Nasal [place]] Loratadine [Claritin] 10 mg PO DAILY 10/26/16 05/30/18 History Zolpidem [Ambien] 10 mg PO HS 10/26/16 05/30/18 History Furosemide [Lasix] 20 mg PO BID 08/19/17 05/30/18 History Levothyroxine Sodium [Synthroid] 125 mcg PO DAILY 08/19/17 05/30/18 History Potassium Chloride [Klor-Con 20] 20 meq PO BID 08/19/17 05/30/18 History Calcium Carbonate/Vitamin D3 1 tab PO DAILY 10/08/17 05/30/18 History [Calcium 600-Vit D3 400 Caplet] Metoprolol Tartrate [Lopressor] 50 mg PO BID 10/08/17 05/30/18 History Montelukast [Singulair] 10 mg PO HS 10/08/17 05/30/18 History Albuterol Inhaler [Ventolin Hfa 2 puff INHALATION RT-QID PRN 10/29/17 05/30/18 History Inhaler] Budesonide/Formoterol Fumarate 2 puff INHALATION RT-BID 10/29/17 05/30/18 History [Symbicort 160-4.5 Mcg Inhaler] Ipratropium-Albuterol Nebulize 3 ml INHALATION RT-QID PRN 10/29/17 05/30/18 History [Duoneb 0.5 mg-3 mg/3 ml Soln] Cyanocobalamin (Vitamin B-12) 1,000 mcg PO DAILY 90 Days #90 01/08/18 05/30/18 Rx [Vitamin B-12] tablet Ondansetron [Zofran] 4 mg PO Q6HR PRN #45 tab 01/24/18 05/30/18 Rx Acyclovir 400 mg PO BID #40 tablet 05/17/18 05/30/18 Rx Fluconazole [Diflucan] 100 mg PO DAILY #10 tab 05/17/18 05/30/18 Rx Allergies Allergy/AdvReac Type Severity Reaction Status Date / Time Penicillins Allergy Rash/Hives Verified 05/30/18 08:33 Physical Exam Vitals: Vital Signs Temp Pulse Pulse Resp BP BP Pulse Ox 06/04/18 10:00 110/65 06/04/18 09:30 110/65 06/04/18 09:13 102.5 F H 89 28 H 110/65 06/04/18 09:00 90 19 114/68 100 06/04/18 08:49 102.5 F H 86 27 H 119/73 06/04/18 08:39 99.2 F 84 20 111/68 99 06/04/18 08:30 84 21 109/65 99 06/04/18 08:00 80 22 118/73 99 06/04/18 07:30 76 23 130/76 100 06/04/18 07:00 74 82 24 135/79 98 06/04/18 06:30 73 0 L 132/69 92 L 06/04/18 06:00 75 25 H 123/60 90 L 06/04/18 05:30 78 10 L 85 L 06/04/18 05:15 25 H 06/04/18 04:52 120 H 90/59 06/04/18 04:42 91 164/92 06/04/18 04:38 179/92 06/04/18 04:34 100/61 06/04/18 04:14 88 22 146/83 94 L 06/03/18 21:00 97.9 F 82 16 124/72 99 06/03/18 18:38 98.1 F 79 16 135/71 06/03/18 17:50 98.5 F 06/03/18 15:59 100.4 F H 81 16 122/79 06/03/18 15:29 98.1 F 84 18 128/68 06/03/18 15:19 98.8 F 82 16 127/69 Intake and Output 06/03/18 06/04/18 06/04/18 22:59 06:59 14:59 Intake Total 560 0 Output Total 3000 Balance 560 -3000 Intake: Intake, IV Titration 250 Amount Magnesium Sulfate-D5w Pmx 100 1 gm In Dextrose/Water 1 100ml.bag @ 100 mls/hr IVPB Q1H STEPHEN Rx#: [id number] Sodium Chloride 0.9% 1, 150 000 ml @ 50 mls/hr IV . Q20H STEPHEN Rx#:[id number] Blood Product 310 0 Platelet Irr Pheresis 0 Acda1 Unit [id number] Rc Irr As1 Unit 310 [id number] Output: Urine 3000 Other: Voiding Method Toilet Indwelling Catheter # Voids 2 Physical Exam: Revealed a 53-year-old female in no distress, sedated, on propofol, on mechanical ventilation. Head: Evidence of large occipital scalp hematoma. No facial lacerations, no evidence of facial hematoma. PERRLA, EOMI, no icterus. HEENT:[Neck is supple.] [No neck masses.] [No thyromegaly.] [No JVD.] Endotracheal tube is intact, orogastric tube is intact. Chest: [Minimal crackles at the bases, no rhonchi no wheezes.] Cardiac Exam: [Normal S1 and S2, no S3 gallop, no murmur.] Abdomen: [Soft, nontender, no megaly, no rebound, no guarding, normal bowel sounds.] Extremities: [No clubbing, no edema, no cyanosis.] Neurological Exam: [Cannot be assessed, patient is on propofol, Skin: No rashes. Results - Laboratory Findings CBC and BMP: 06/04/18 04:52 06/04/18 04:52 ABG ABG pH 7.38 (7.35-7.45) 06/04/18 05:45 ABG pCO2 41 mmHg (35-45) 06/04/18 05:45 ABG pO2 61 mmHg (83-108) L 06/04/18 05:45 ABG O2 Saturation 91.7 % (94-97) L 06/04/18 05:45 PT/INR, D-dimer PT 11.1 sec (9.0-12.0) 06/04/18 04:52 INR 1.1 (<1.2) 06/04/18 04:52 Abnormal lab findings: Abnormal Labs 05/30/18 05/30/18 05/30/18 09:05 09:05 09:05 WBC RBC Hgb Hct RDW Plt Count Neutrophils # (Manual) Monocytes # (Manual) Metamyelocytes # (Man) Nucleated RBCs APTT 19.6 L ABG pO2 ABG Total CO2 ABG O2 Saturation Chloride Carbon Dioxide Glucose 188 H POC Glucose (mg/dL) Hemoglobin A1c Plasma Lactic Acid Bereket 2.6 H* Magnesium Total Bilirubin 2.1 H Alkaline Phosphatase Albumin Urine Protein Ur Squamous Epith Cells Urine Bacteria Hyaline Casts Urine Mucus Crossmatch 05/30/18 05/30/18 05/30/18 09:40 10:20 10:20 WBC 0.1 L* RBC 2.07 L Hgb 6.3 L* Hct 18.3 L* RDW 16.8 H Plt Count 8 L* D Neutrophils # (Manual) Monocytes # (Manual) Metamyelocytes # (Man) Nucleated RBCs APTT ABG pO2 ABG Total CO2 ABG O2 Saturation Chloride Carbon Dioxide Glucose POC Glucose (mg/dL) Hemoglobin A1c 7.5 H Plasma Lactic Acid Bereket Magnesium Total Bilirubin Alkaline Phosphatase Albumin Urine Protein 1+ H Ur Squamous Epith Cells 5 H Urine Bacteria Occasional H Hyaline Casts 4 H Urine Mucus Rare H Crossmatch 05/30/18 05/31/18 05/31/18 12:00 07:08 08:34 WBC RBC Hgb Hct RDW Plt Count Neutrophils # (Manual) Monocytes # (Manual) Metamyelocytes # (Man) Nucleated RBCs APTT ABG pO2 ABG Total CO2 ABG O2 Saturation Chloride 108 H Carbon Dioxide Glucose 165 H POC Glucose (mg/dL) 150 H Hemoglobin A1c Plasma Lactic Acid Bereket Magnesium Total Bilirubin Alkaline Phosphatase Albumin Urine Protein Ur Squamous Epith Cells Urine Bacteria Hyaline Casts Urine Mucus Crossmatch See Detail 05/31/18 05/31/18 05/31/18 08:34 11:00 17:18 WBC 0.2 L* RBC 2.09 L Hgb 6.4 L* Hct 18.4 L* RDW 16.1 H Plt Count 9 L* Neutrophils # (Manual) Monocytes # (Manual) Metamyelocytes # (Man) Nucleated RBCs APTT ABG pO2 ABG Total CO2 ABG O2 Saturation Chloride Carbon Dioxide Glucose POC Glucose (mg/dL) 165 H 126 H Hemoglobin A1c Plasma Lactic Acid Bereket Magnesium Total Bilirubin Alkaline Phosphatase Albumin Urine Protein Ur Squamous Epith Cells Urine Bacteria Hyaline Casts Urine Mucus Crossmatch 05/31/18 06/01/18 06/01/18 20:10 07:12 07:16 WBC RBC Hgb Hct RDW Plt Count Neutrophils # (Manual) Monocytes # (Manual) Metamyelocytes # (Man) Nucleated RBCs APTT ABG pO2 ABG Total CO2 ABG O2 Saturation Chloride 109 H Carbon Dioxide 21 L Glucose 119 H POC Glucose (mg/dL) 126 H 134 H Hemoglobin A1c Plasma Lactic Acid Bereket Magnesium Total Bilirubin Alkaline Phosphatase Albumin Urine Protein Ur Squamous Epith Cells Urine Bacteria Hyaline Casts Urine Mucus Crossmatch 06/01/18 06/01/18 06/01/18 07:16 10:58 16:49 WBC 0.4 L* RBC 2.11 L Hgb 6.5 L* Hct 18.9 L* RDW 16.6 H Plt Count 12 L* Neutrophils # (Manual) Monocytes # (Manual) Metamyelocytes # (Man) Nucleated RBCs APTT ABG pO2 ABG Total CO2 ABG O2 Saturation Chloride Carbon Dioxide Glucose POC Glucose (mg/dL) 145 H 124 H Hemoglobin A1c Plasma Lactic Acid Bereket Magnesium Total Bilirubin Alkaline Phosphatase Albumin Urine Protein Ur Squamous Epith Cells Urine Bacteria Hyaline Casts Urine Mucus Crossmatch 06/01/18 06/02/18 06/02/18 20:26 05:46 05:46 WBC 0.6 L* RBC 2.36 L Hgb 7.3 L Hct 21.2 L RDW Plt Count 7 L* Neutrophils # (Manual) Monocytes # (Manual) Metamyelocytes # (Man) Nucleated RBCs APTT ABG pO2 ABG Total CO2 ABG O2 Saturation Chloride 108 H Carbon Dioxide 21 L Glucose 137 H POC Glucose (mg/dL) 116 H Hemoglobin A1c Plasma Lactic Acid Bereket Magnesium 1.3 L Total Bilirubin 2.1 H Alkaline Phosphatase Albumin 3.4 L Urine Protein Ur Squamous Epith Cells Urine Bacteria Hyaline Casts Urine Mucus Crossmatch 06/02/18 06/02/18 06/02/18 06:57 11:31 16:42 WBC RBC Hgb Hct RDW Plt Count Neutrophils # (Manual) Monocytes # (Manual) Metamyelocytes # (Man) Nucleated RBCs APTT ABG pO2 ABG Total CO2 ABG O2 Saturation Chloride Carbon Dioxide Glucose POC Glucose (mg/dL) 149 H 138 H 149 H Hemoglobin A1c Plasma Lactic Acid Bereket Magnesium Total Bilirubin Alkaline Phosphatase Albumin Urine Protein Ur Squamous Epith Cells Urine Bacteria Hyaline Casts Urine Mucus Crossmatch 06/02/18 06/03/18 06/03/18 20:42 07:16 07:37 WBC RBC Hgb Hct RDW Plt Count Neutrophils # (Manual) Monocytes # (Manual) Metamyelocytes # (Man) Nucleated RBCs APTT ABG pO2 ABG Total CO2 ABG O2 Saturation Chloride Carbon Dioxide Glucose 152 H POC Glucose (mg/dL) 131 H 154 H Hemoglobin A1c Plasma Lactic Acid Bereket Magnesium Total Bilirubin 1.8 H Alkaline Phosphatase Albumin Urine Protein Ur Squamous Epith Cells Urine Bacteria Hyaline Casts Urine Mucus Crossmatch 06/03/18 06/03/18 06/03/18 07:37 10:46 11:17 WBC 0.9 L* RBC 2.22 L Hgb 6.5 L* Hct 19.7 L* RDW 15.8 H Plt Count 14 L* D Neutrophils # (Manual) Monocytes # (Manual) Metamyelocytes # (Man) Nucleated RBCs APTT ABG pO2 ABG Total CO2 ABG O2 Saturation Chloride Carbon Dioxide Glucose POC Glucose (mg/dL) 131 H Hemoglobin A1c Plasma Lactic Acid Bereket Magnesium Total Bilirubin Alkaline Phosphatase Albumin Urine Protein Ur Squamous Epith Cells Urine Bacteria Hyaline Casts Urine Mucus Crossmatch See Detail 06/03/18 06/03/18 06/04/18 16:21 19:58 03:31 WBC RBC Hgb Hct RDW Plt Count Neutrophils # (Manual) Monocytes # (Manual) Metamyelocytes # (Man) Nucleated RBCs APTT ABG pO2 ABG Total CO2 ABG O2 Saturation Chloride Carbon Dioxide Glucose POC Glucose (mg/dL) 137 H 158 H 122 H Hemoglobin A1c Plasma Lactic Acid Bereket Magnesium Total Bilirubin Alkaline Phosphatase Albumin Urine Protein Ur Squamous Epith Cells Urine Bacteria Hyaline Casts Urine Mucus Crossmatch 06/04/18 06/04/18 06/04/18 04:52 04:52 05:45 WBC RBC 2.62 L Hgb 7.9 L Hct 23.7 L RDW 16.4 H Plt Count 32 L D Neutrophils # (Manual) 0.50 L Monocytes # (Manual) 1.01 H Metamyelocytes # (Man) 0.13 H Nucleated RBCs 3 H APTT ABG pO2 61 L ABG Total CO2 25 H ABG O2 Saturation 91.7 L Chloride Carbon Dioxide Glucose 235 H POC Glucose (mg/dL) Hemoglobin A1c Plasma Lactic Acid Bereket Magnesium Total Bilirubin 1.7 H Alkaline Phosphatase 147 H Albumin Urine Protein Ur Squamous Epith Cells Urine Bacteria Hyaline Casts Urine Mucus Crossmatch - Diagnostic Findings Chest x-ray: image reviewed (Bilateral pulmonary edema is suspected, difficult to rule out underlying pneumonia, but felt to be less likely.) Additional studies: CT of the brain findings and report was noted Assessment and Plan Assessment: Impression: 1 acute hypoxic respiratory failure secondary to head trauma secondary to fall, and acute interstitial pulmonary edema, exact etiology is not clear, could be neurogenic in nature. possible pneumonia as noted on the chest x-ray during my initial evaluation. 2 acute occipital scalp hematoma subdural hemorrhage, along the cerebellar tentorium and posterior interhemispheric fissure. possible old cerebellar hematoma. 3 acute febrile neutropenia, pancytopenia secondary to chemotherapy 4 Shae esophagitis 5 acute dehydration on presentation. Recommendation: Patient was felt to be stable from the pulmonary perspective, she was hemodynamically stable, her O2 saturation was in the high 90s during my evaluation, and she was noted to be in no distress while on mechanical ventilation. She was already responding to diuretics, hence I went ahead and clear the patient from the pulmonary perspective to be transferred to a tertiary care center. I instructed the nurse to notify other consultants and to proceed with transfer plans as scheduled. Discussed her condition with her daughters at bedside. Time with Patient: Greater than 30
[2018-06-05] MEDS ORDERED: VANCOMYCIN TROUGH DUE 1 EACH MISC MISCELLANE ONE (11:00)
--- NOTE | 2018-06-05 23:54 | DS ---
DISCHARGE SUMMARY FINAL DIAGNOSES: 1. Acute subdural hemorrhage along with cerebellar tentorium and posterior interhemispheric fissure as well as a large occipital scalp hematoma, possibly secondary to fall. 2. Febrile neutropenia sepsis with severe bronchitis and pharyngitis. 3. Oral thrush. 4. Pancytopenia secondary to AML chemotherapy. 5. Anemia secondary to above. 6. Asthma without acute exacerbation. 7. Diabetes mellitus type 2. 8. History of gastroesophageal reflux disease. 9. History of hyperlipidemia. 10.History of hypertension. 11.History of hypothyroidism. 12.Hypomagnesemia. DISCHARGE DISPOSITION: The patient is being transferred in stable condition with guarded prognosis. The patient was transferred to neurosurgical center. HISTORY OF PRESENT ILLNESS: This 53-year-old woman with a past medical history of multiple complex medical problems was admitted with febrile neutropenia. The patient was treated with IV antibiotics. Patient also had thrombocytopenia. The patient was treated symptomatically. The patient's condition remained guarded throughout the hospital stay. Apparently patient had a fall and subsequently the CT scan showed findings as above. Please refer to staff notes and multiple security sales consultant notes including Dr. Benton's notes for further evaluation. The case was discussed with Neurosurgery and the patient was transferred to [facility]. Patient was intubated and mechanically ventilated also. The overall prognosis remains extremely guarded because of multiple complex medical issues. Please refer to multiple progress notes and consultations also for further details. MMODL / IJN: [id number] /
== END 2018-06-04 10:36 | disposition short-term general hospital (02) | DRG 871 ==
LOC: EC 08:21 → 3SCARD 12:10 → 3NMEDONC 20:09 → 2SICU 06-04 05:42
PROVIDERS: ADMIT Internal Medicine; ATTEND Internal Medicine
PROC: 30233R1 Transfusion of Nonautologous Platelets into Peripheral Vein, Percutaneous Approach (ICD-10-PCS; principal; 2018-05-31)
PROC: 30233N1 Transfusion of Nonautologous Red Blood Cells into Peripheral Vein, Percutaneous Approach (ICD-10-PCS; 2018-05-31)
PROC: 0BH17EZ Insertion of Endotracheal Airway into Trachea, Via Natural or Artificial Opening (ICD-10-PCS; 2018-06-04)
PROC: 5A1935Z Respiratory Ventilation, Less than 24 Consecutive Hours (ICD-10-PCS; 2018-06-04)
PROC: 5A12012 Performance of Cardiac Output, Single, Manual (ICD-10-PCS; 2018-06-04)
DX: A41.9 Sepsis, unspecified organism (principal); D61.810 Antineoplastic chemotherapy induced pancytopenia; S06.5X9A Traumatic subdural hemorrhage with loss of consciousness of unspecified duration, initial encounter; J96.01 Acute respiratory failure with hypoxia; J18.9 Pneumonia, unspecified organism; B37.0 Candidal stomatitis; B37.81 Candidal esophagitis; B37.89 Other sites of candidiasis; C92.00 Acute myeloblastic leukemia, not having achieved remission; J98.11 Atelectasis; E11.40 Type 2 diabetes mellitus with diabetic neuropathy, unspecified; D70.3 Neutropenia due to infection; E83.42 Hypomagnesemia; K76.0 Fatty (change of) liver, not elsewhere classified; R50.84 Febrile nonhemolytic transfusion reaction; R50.81 Fever presenting with conditions classified elsewhere; S00.03XA Contusion of scalp, initial encounter; T45.1X5A Adverse effect of antineoplastic and immunosuppressive drugs, initial encounter; E86.0 Dehydration; I10 Essential (primary) hypertension; R63.3 Feeding difficulties; J40 Bronchitis, not specified as acute or chronic; F32.9 Major depressive disorder, single episode, unspecified; F41.9 Anxiety disorder, unspecified; K21.9 Gastro-esophageal reflux disease without esophagitis; J45.20 Mild intermittent asthma, uncomplicated; E78.5 Hyperlipidemia, unspecified; E03.9 Hypothyroidism, unspecified; G47.00 Insomnia, unspecified; D50.9 Iron deficiency anemia, unspecified; G89.29 Other chronic pain; M54.9 Dorsalgia, unspecified; Z79.51 Long term (current) use of inhaled steroids; Z79.890 Hormone replacement therapy; Z79.899 Other long term (current) drug therapy; Z98.42 Cataract extraction status, left eye; Z96.1 Presence of intraocular lens; Z98.41 Cataract extraction status, right eye; Z98.51 Tubal ligation status; Z88.0 Allergy status to penicillin; Z80.9 Family history of malignant neoplasm, unspecified; W19.XXXA Unspecified fall, initial encounter; Y92.230 Patient room in hospital as the place of occurrence of the external cause
CPT/HCPCS: 36415; 36600; 70450; 71045; 71046; 72125; 80048; 80053; 81001; 82805; 83036; 83605; 83735; 84100; 85025; 85027; 85610; 85730; 86850; 86870; 86880; 86900; 86901; 86902; 86920; 87040; 87081; 87086; 87430; 87502; 93005; 96365; 96366; 96367; 96368; 96375; 99285